=== PATIENT | male | born 1960 | race African-American/Black ===

== ENCOUNTER 2019-11-24 00:01 | Inpatient (IN) | payer OTHER ==
[~2019-11-24] VITALS: Ht 172.7 cm; Wt 101.6 kg
[2019-11-24] VITALS (37 sets, daily range): BP systolic 83–174; BP diastolic 47–84
--- NOTE | 2019-11-24 00:15 | NUR ---
ED Nurse Note: Patient brought in by ambulance from [facility] d/t SOB and cough for 1 day. Patient aao x 4 and is a left leg amputee. Patient placed on monitor worker. IV established and blood collected and sent to lab.
[2019-11-24] MEDS ORDERED: Acetaminophen 500mg (ES) tab ORAL ONE (00:45)
[2019-11-24] MEDS ORDERED: Cefepime HCl 1 GM in NS 55 ML IV ONE (00:45)
--- NOTE | 2019-11-24 00:56 | Emergency Room Report ---
History of Present Illness General Chief Complaint: Upper Respiratory Illness Source: Patient, Medical Record Present Illness HPI This is a 59-year-old male with a history of insulin-dependent diabetes. He resides in a retirement because he had a recent left BKA. He presents with chief complaint of fever and cough. Onset 6 days ago. He said he started coughing then. Productive of phlegm. Started having fever last couple days. No nausea no vomiting. Worse with inspiration. Worse with lying flat. Chest x -ray was done and showed pneumonia. Was sent here for evaluation. Patient denies any pain. Has any chest pain. No diaphoresis. Allergies: Coded Allergies: No Known Allergies (Unverified , 11/24/19) Patient History Past Medical History: see triage record, old chart reviewed, DM, HTN Past Surgical History: other - Left BKA Pertinent Family History: none Social History: Denies: smoking Immunizations: other Reviewed Nursing Documentation: PMH: Agreed; PSxH: Agreed Nursing Documentation-PMH Hx Diabetes: Yes - Type 2 Review of Systems Constitutional: Reports: chills, fever Eye: Denies: eye pain, blurred vision ENT: Denies: ear pain, nose congestion, throat swelling Respiratory: Reports: cough, shortness of breath, sputum Cardiovascular: Denies: chest pain, palpitations Gastrointestinal: Denies: abdominal pain, diarrhea, nausea, vomiting Musculoskeletal: Denies: back pain, joint pain Skin: Denies: rash Neurological: Denies: headache, numbness Endocrine: Denies: increased thirst, increased urine Hematologic/Lymphatic: Denies: easy bruising All Other Systems: negative except mentioned in HPI Physical Exam Vital Signs Date Time Temp Pulse Resp B/P (MAP) Pulse Ox O2 Delivery O2 Flow Rate FiO2 11/24/19 00:03 101.5 108 18 168/87 (114) 94 Nasal Cannula 4.0 Vitals with fever and hypertension. Sp02 EP Interpretation: reviewed, abnormal General Appearance: well appearing, no apparent distress, alert, mild distress Head: normocephalic, atraumatic Eyes: bilateral eye PERRL, bilateral eye EOMI ENT: hearing grossly normal, normal pharynx Neck: full range of motion, supple, no meningismus Respiratory: chest non-tender, crackles, rhonchi Cardiovascular #1: regular rate, rhythm, no murmur Gastrointestinal: normal bowel sounds, non tender, no mass, no organomegaly, no bruit, non-distended Musculoskeletal: back normal, normal range of motion, other - Left BKA Psychiatric: mood/affect normal Procedures Critical Care Time Critical Care Time Critical care is mandated in this patient who presented with sepsis from pneumonia. Patient require my urgent intervention to attenuate the risks of respiratory and metabolic collapse which may lead to cardiovascular collapse and . Critical care time is 35 minutes excluding any reportable procedure. Critical care time included evaluation, multiple reevaluation, looking at old charts, interpreting laboratory and diagnostic data, discussing case with patient and family and consultants, and charting. Medical Decision Making Diagnostic Impression: Primary Impression: Sepsis Qualified Codes: A41.9 - Sepsis, unspecified organism; R65.20 - Severe sepsis without septic shock; J96.01 - Acute respiratory failure with hypoxia Additional Impressions: HCAP (healthcare-associated pneumonia) ARF (acute renal failure) Qualified Codes: N17.9 - Acute kidney failure, unspecified Anemia Qualified Codes: D64.9 - Anemia, unspecified ACS (acute coronary syndrome) ER Course Patient presents with sepsis secondary to healthcare associated pneumonia. He has bilateral lobar infiltrate. Wide spectrum antibiotics given. Patient felt better after IV fluid and breathing treatment. His elevated troponin probably secondary to demand ischemia. Patient primary care doctor is Dr. Ramos. Will admit this patient under the service of Dr. Ceaj and Dr. Milton. EKG Diagnostic Results Rate: normal Rhythm: NSR ST Segments: no acute changes Rhythm Strip Diag. Results EP Interpretation: yes Rate: 100 Rhythm: NSR, no PVC's, no ectopy Chest X-Ray Diagnostic Results Chest X-Ray Diagnostic Results : # of Views/Limited/Complete: 1 View Indication: Shortness of Breath Interpretation: no effusion, no pneumothorax, other - b/l infiltrates Impression: Other - b/l infiltrates Electronically Signed by: Kyle Allen MD Last Vital Signs Date Time Temp Pulse Resp B/P (MAP) Pulse Ox O2 Delivery O2 Flow Rate FiO2 11/24/19 00:03 101.5 108 18 168/87 (114) 94 Nasal Cannula 4.0 Status: improved Disposition: ADMITTED INPATIENT Condition: Serious Referrals: NON PHYSICIAN (PCP) Kyle Allen MD Nov 24, 2019 00:56
[2019-11-24 01:11] LABS: HEMATOCRIT 31.4 % (42.0-52.0); HEMOGLOBIN 10.5 G/DL (14.2-18.0); MEAN CORPUSCULAR VOLUME 86 FL (80-99); PLATELET COUNT 370 K/UL (150-450); RED BLOOD COUNT 3.66 M/UL (4.70-6.10); RED CELL DISTRIBUTION WIDTH 14.7 % (11.6-14.8); WHITE BLOOD COUNT 12.2 K/UL (4.8-10.8)
[2019-11-24 01:25] LABS: ANION GAP 12 mmol/L (5-15); BLOOD UREA NITROGEN 68 mg/dL (7-18); CALCIUM 9.8 MG/DL (8.5-10.1); CARBON DIOXIDE 24 MMOL/L (21-32); CHLORIDE 105 MMOL/L (98-107); CREATININE 2.4 MG/DL (0.55-1.30); POTASSIUM 3.7 MMOL/L (3.5-5.1); SODIUM 141 MMOL/L (136-145)
--- NOTE | 2019-11-24 01:31 | NUR ---
ED Nurse Note: Urine collected and sent to lab
[2019-11-24 01:33] LABS: INR 1.1 (0.9-1.1)
[2019-11-24 01:38] LABS: ALANINE AMINOTRANSFERASE 22 U/L (12-78); ALBUMIN 2.8 G/DL (3.4-5.0); ALBUMIN/GLOBULIN RATIO 0.5 (1.0-2.7); ALKALINE PHOSPHATASE 112 U/L (46-116); ASPARTATE AMINO TRANSFERASE 20 U/L (15-37); BILIRUBIN,TOTAL 0.8 MG/DL (0.2-1.0); CKMB 0.8 NG/ML (0.0-3.6); CREATINE KINASE 92 U/L (26-308)
--- NOTE | 2019-11-24 01:41 | NUR ---
ED Nurse Note: ERMD made aware of patient O2 sat at 85-87% on 4L NC, per ERMD increase 5L NC and okay to continue monitor if O2 close to 90%. Oxygen increased to 5L, O2 sat at 88%
[2019-11-24 01:42] LABS: APPEARANCE,URINE CLEAR; BILIRUBIN, URINE NEGATIVE (NEGATIVE); COLOR,URINE PALE YELLOW; GLUCOSE, URINE (UA) NEGATIVE (NEGATIVE); KETONES,URINE NEGATIVE (NEGATIVE); LEUKOCYTE ESTERASE ,URINE NEGATIVE (NEGATIVE); NITRITE,URINE NEGATIVE (NEGATIVE); PH,URINE 5 (4.5-8.0); PROTEIN,URINE 3+ (NEGATIVE); UROBILINOGEN,URINE NORMAL MG/DL (0.0-1.0)
--- NOTE | 2019-11-24 01:45 | NUR ---
ED Nurse Note: Reassessed O2 sat currently at 93%
[2019-11-24] MEDS ORDERED: Aspirin Baby 81mg ORAL ONE (02:15)
--- NOTE | 2019-11-24 03:10 | Emergency Room Report ---
Sepsis Event Note Evaluation Current Stage of Sepsis: Sepsis Possible Source: Pulmonary Focused Exam Allergies: Coded Allergies: No Known Allergies (Unverified , 11/24/19) Date Exam Occurred: Nov 24, 2019 Time Exam Occurred: 03:10 Laboratory Studies Laboratory Tests Test 11/24/19 00:50 11/24/19 01:31 White Blood Count 12.2 K/UL (4.8-10.8) H Red Blood Count 3.66 M/UL (4.70-6.10) L Hemoglobin 10.5 G/DL (14.2-18.0) L Hematocrit 31.4 % (42.0-52.0) L Mean Corpuscular Volume 86 FL (80-99) Mean Corpuscular Hemoglobin 28.7 PG (27.0-31.0) Mean Corpuscular Hemoglobin Concent 33.5 G/DL (32.0-36.0) Red Cell Distribution Width 14.7 % (11.6-14.8) Platelet Count 370 K/UL (150-450) Mean Platelet Volume 5.3 FL (6.5-10.1) L Neutrophils (%) (Auto) % (45.0-75.0) Lymphocytes (%) (Auto) % (20.0-45.0) Monocytes (%) (Auto) % (1.0-10.0) Eosinophils (%) (Auto) % (0.0-3.0) Basophils (%) (Auto) % (0.0-2.0) Prothrombin Time 11.2 SEC (9.30-11.50) Prothromb Time International Ratio 1.1 (0.9-1.1) Activated Partial Thromboplast Time 33 SEC (23-33) Sodium Level 141 MMOL/L (136-145) Potassium Level 3.7 MMOL/L (3.5-5.1) Chloride Level 105 MMOL/L (98-107) Carbon Dioxide Level 24 MMOL/L (21-32) Anion Gap 12 mmol/L (5-15) Blood Urea Nitrogen 68 mg/dL (7-18) H Creatinine 2.4 MG/DL (0.55-1.30) H Estimat Glomerular Filtration Rate 33.8 mL/min (>60) Glucose Level 175 MG/DL (74-106) H Lactic Acid Level 1.90 mmol/L (0.4-2.0) Calcium Level 9.8 MG/DL (8.5-10.1) Total Bilirubin 0.8 MG/DL (0.2-1.0) Aspartate Amino Transf (AST/SGOT) 20 U/L (15-37) Alanine Aminotransferase (ALT/SGPT) 22 U/L (12-78) Alkaline Phosphatase 112 U/L (46-116) Total Creatine Kinase 92 U/L (26-308) Creatine Kinase MB 0.8 NG/ML (0.0-3.6) Creatine Kinase MB Relative Index 0.8 Troponin I 0.270 ng/mL (0.000-0.056) Total Protein 8.2 G/DL (6.4-8.2) Albumin 2.8 G/DL (3.4-5.0) L Globulin 5.4 g/dL Albumin/Globulin Ratio 0.5 (1.0-2.7) L Urine Color Pale yellow Urine Appearance Clear Urine pH 5 (4.5-8.0) Urine Specific Lottie 1.015 (1.005-1.035) Urine Protein 3+ (NEGATIVE) H Urine Glucose (UA) Negative (NEGATIVE) Urine Ketones Negative (NEGATIVE) Urine Blood 1+ (NEGATIVE) H Urine Nitrite Negative (NEGATIVE) Urine Bilirubin Negative (NEGATIVE) Urine Urobilinogen Normal MG/DL (0.0-1.0) Urine Leukocyte Esterase Negative (NEGATIVE) Urine RBC 0-2 /HPF (0 - 0) H Urine WBC 0 /HPF (0 - 0) Urine Squamous Epithelial Cells None /LPF (NONE/OCC) Urine Bacteria None /HPF (NONE) Vital Signs Last 24 Hour Vital Signs Date Time Temp Pulse Resp B/P (MAP) Pulse Ox O2 Delivery O2 Flow Rate FiO2 11/24/19 02:15 99.3 91 28 138/62 95 Nasal Cannula 4.0 11/24/19 01:34 101.4 11/24/19 00:15 101.5 98 28 147/68 87 Nasal Cannula 4.0 11/24/19 00:15 98 28 Nasal Cannula 4.0 11/24/19 00:03 101.5 108 18 168/87 (114) 94 Nasal Cannula 4.0 Respiratory Exam: Crackles Cardiovascular Exam: RRR Capillary Refill: Less Than 2 Seconds Peripheral Pulse: Strong Pulse Location: Radial Skin Exam: Normal Turgor Kyle Allen MD Nov 24, 2019 03:10
--- NOTE | 2019-11-24 05:28 | NUR ---
ED Nurse Note: Patient placed on [place] bed for boarding, swabs collected, belongings list completed.
--- NOTE | 2019-11-24 07:21 | NUR ---
HAND-OFF: Report given to YUKI Nelson.
--- NOTE | 2019-11-24 07:25 | NUR ---
ED Nurse Note: Pt vss, pt resting in bed, pt was able to urinate in urinal bottle
--- NOTE | 2019-11-24 09:19 | NUR ---
ED Nurse Note: Pt began to desaturate, informed ermd. placed pt on 15 L with non rebreather. waiting for RT for BiPAP placement
[2019-11-24] MEDS ORDERED: Nitroglycerin Subl 0.4mg tab SL ONE (09:22)
[2019-11-24] MEDS ORDERED: Nitroglycerin Subl 0.4mg tab SL PRN (09:30)
--- NOTE | 2019-11-24 09:30 | NUR ---
Placed pt on Bipap 15/5-100% FiO2. Foam tapes applied to prevent skin breakdown.Pt is agonal, SOB, lethargic but able to follow commands. Pt is tolerating well the Bipap. Alarms are set and audible, ambu bag at bedside, Bipap is plugged into the red outlet. RN made aware. Will continue to monitor.
--- NOTE | 2019-11-24 09:37 | NUR ---
ED Nurse Note: RT at bedside. BiPAP placed. pt Spo2 stablized.
--- NOTE | 2019-11-24 10:04 | NUR ---
ED Nurse Note: Pt soiled pants, pt cleaned and provided new blankets, gown, linen. pt reports feeling more comfortable
--- NOTE | 2019-11-24 10:21 | NUR ---
Set up EtCO2 at bedside, alarms are set 35-45mmHg per Dr. Kirby's order.
--- NOTE | 2019-11-24 10:30 | Diagnostic Imaging Report ---
Indication: Shortness of breath Technique: One view of the chest Comparison: none Findings: Dense consolidation is seen bilaterally, diffuse but with an upper lobe predominance. The pleural spaces appear clear. The heart size is upper limits of normal. There are degenerative changes of the thoracic spine Impression: Bilateral dense consolidation, likely pneumonia. Pulmonary edema also possible. Correlate with clinical findings
--- NOTE | 2019-11-24 11:23 | NUR ---
ED Nurse Note: Pt assisted onto bed bloom
[2019-11-24] MEDS ORDERED: AMLODIPINE BESY10 MG ORAL (13:01)
[2019-11-24] MEDS ORDERED: HUMALOG100 UNIT/4 SUBQ (13:01)
[2019-11-24] MEDS ORDERED: DOCUSATE SODIU100 MG ORAL (13:01)
[2019-11-24] MEDS ORDERED: NORCO 5-325 TA1 EACH ORAL (13:01)
[2019-11-24] MEDS ORDERED: METOPROLOL SUC100 MG ORAL (13:01)
[2019-11-24] MEDS ORDERED: BISACODYL5 MG ORAL (13:01)
[2019-11-24] MEDS ORDERED: MUPIROCIN22 GM TOPIC (13:01)
[2019-11-24] MEDS ORDERED: PROMETHAZINE-D118 ML ORAL (13:01)
[2019-11-24] MEDS ORDERED: FLONASE ALLERG9.9 ML NS (13:01)
[2019-11-24] MEDS ORDERED: ALLOPURINOL100 M1 ORAL (13:01)
[2019-11-24] MEDS ORDERED: MOBIC7.5 MG ORAL (13:01)
[2019-11-24] MEDS ORDERED: PRO-STAT LIQUID30 ML ORAL (13:01)
[2019-11-24] MEDS ORDERED: FUROSEMIDE20 M1 ORAL (13:01)
[2019-11-24] MEDS ORDERED: MULTIVITAMINS1 EAC8 ORAL (13:01)
[2019-11-24] MEDS ORDERED: ATORVASTATIN CA40 MG ORAL (13:01)
[2019-11-24] MEDS ORDERED: LEVAQUIN500 MG ORAL (13:01)
[2019-11-24] MEDS ORDERED: DUONEB 0.5-3(2.53 ML HHN (13:01)
[2019-11-24] MEDS ORDERED: PROTONIX40 MG ORAL (13:03)
[2019-11-24] MEDS ORDERED: TYLENOL325 M1 PO (13:03)
[2019-11-24] MEDS ORDERED: VITAMIN C500 M1 ORAL (13:03)
[2019-11-24] MEDS ORDERED: Miralax 17gm pkt ORAL PRN (13:30)
[2019-11-24] MEDS ORDERED: Albuterol/Ipratropium 3ml neb HHN PRN (13:30)
[2019-11-24] MEDS ORDERED: Promethazine/Codeine 5ml UD ORAL PRN (13:30)
[2019-11-24] MEDS ORDERED: LORazepam Inj 2mg/ml 1ml IV PRN (13:30)
--- NOTE | 2019-11-24 13:30 | NUR ---
HAND-OFF: Report given to YUKI Victoria.
--- NOTE | 2019-11-24 14:03 | NUR ---
ED Nurse Note: PTT seen in bed awake, COntinues with bipap, sp02 06%.Will continue to monitor. Addendum: 11/24/19 at 1704 by [facility] ED Nurse Note: PT seen in bed awake, COntinues with bipap, sp02 96%.Will continue to monitor.
--- NOTE | 2019-11-24 14:05 | NUR ---
NURSE NOTES: Report received from YUKI Burns. patient will be placed in room 246-F
--- NOTE | 2019-11-24 14:05 | NUR ---
ED Nurse Note: Report given to YUKI Parr.
--- NOTE | 2019-11-24 14:20 | NUR ---
ED Nurse Note: PT sp02 started to drop to 60s. PT became unresponsive. ERMD called to the room. PT was intubated at 1418. Tube size 7.5 to right lip, vent setting of AC20, TV480, PEEP 110 fi02 100%. Sp02 90% Addendum: 11/25/19 at 0121 by [facility] ED Nurse Note: PT sp02 started to drop to 60s. PT became unresponsive. ERMD called to the room. PT was intubated at 1418. Tube size 7.5 to right lip, vent setting of AC20, TV480, PEEP 10 fi02 100%. Sp02 90%
--- NOTE | 2019-11-24 14:42 | NUR ---
ED Nurse Note: xray for intubation confirmation done at bedside
--- NOTE | 2019-11-24 14:46 | NUR ---
RESPIRATORY NOTE: Got a call to transfer pt to ICU. Came in the room with Lucio to remove Bipap. Pt was sitting on the side of the bed, awake, alert. Lucio took the vital monitor off and place on mobile monitor. I took pt off the Bipap and placed on non rebreather 15L 100%FiO2. Pt was awake, alert and moving up to the bed to get transfer out when I left the room. Lucio was at bedside. Got a call from YUKI Vazquez that pt was crashing down, need to be intubated. When back to Er immediately,Pt was intubated per Dr. Kirby at 1418 with ETT 7.5 @ 24cm lip line, secured by anchor fast. Vent setting order was 20-480-100%-peep 10, but pt desat to 79%, bagged pt with peep valve of 15, able to bring pt back to 92% saturation. Placed back on vent, desat again. Increased peep to [address] Kirby's order and given pt breathing Tx prn to help open the airway and increase the saturation. After the Tx, able to keep saturation at 92-93% on vent settings: AC 20-480ml- 100%FiO2- peep 15. Alarms are on, ambu bag at bedside, vent is plugged into the red outlet. YUKI Vazquez aware.Will continue to monitor.
--- NOTE | 2019-11-24 15:00 | NUR ---
ED Nurse Note: PT brought up to ICU room F accompanied by RT, 2 RN, and quality assurance/r&d lab technician via bed with monitor box on. IV line remain intact . Report given to YUKI Parr. Belonging list signed off.
[2019-11-24] MEDS ORDERED: Morphine Sulfate 4mg/ml Inj (IV USE ONLY) IVP PRN (15:15)
--- NOTE | 2019-11-24 15:17 | Pulmonolgy Critical Care Note ---
Critical Care - Asmt/Plan Problems: (1) Acute respiratory failure (2) Chronic systolic heart failure (3) Chronic kidney disease, stage 3 (4) History of left below knee amputation (5) prostetic heart valve (6) Diabetes mellitus (7) History of hypertension (8) History of gout (9) HCAP (healthcare-associated pneumonia) Respiratory: monitor respiratory rate, adjust FIO2, CXR Cardiac: continue to monitor HR/BP Renal: F/U I&O, keep IV fluid Infectious Disease: check cultures, continue antibiotics Gastrointestinal: continue feedings/current rate Endocrine: monitor blood sugar Hematologic: monitor H/H Neurologic: PRN Ativan, PRN Morphine Disposition: keep in ICU Notes Reviewed: privacy director, cardio Discussed with: nurses, consultants, counter casermaterials planning manager - Objective Last 24 Hour Vital Signs Date Time Temp Pulse Resp B/P (MAP) Pulse Ox O2 Delivery O2 Flow Rate FiO2 11/24/19 14:34 98.8 102 18 166/84 90 Mechanical Ventilator 15.0 100 11/24/19 12:53 97 28 94 100 11/24/19 12:32 98.8 93 28 143/80 100 Bi-pap 15.0 100 11/24/19 10:21 91 31 93 100 11/24/19 09:46 99.0 84 26 148/77 100 Bi-pap 15.0 100 11/24/19 09:35 100 11/24/19 09:30 96 34 Non-Rebreather 15.0 100 11/24/19 09:30 95 34 96 100 11/24/19 09:23 174/76 11/24/19 09:19 99.0 76 26 174/76 74 Non-Rebreather 15.0 11/24/19 07:26 99.3 89 23 155/74 94 Nasal Cannula 5.0 11/24/19 07:10 82 26 158/72 94 Nasal Cannula 5.0 11/24/19 05:10 Room Air 11/24/19 05:07 Room Air 11/24/19 04:46 Nasal Cannula 3.0 11/24/19 03:00 82 22 121/57 90 Nasal Cannula 5.0 11/24/19 02:15 99.3 91 28 138/62 95 Nasal Cannula 4.0 11/24/19 01:34 101.4 11/24/19 00:15 101.5 98 28 147/68 87 Nasal Cannula 4.0 11/24/19 00:15 98 28 Nasal Cannula 4.0 11/24/19 00:03 101.5 108 18 168/87 (114) 94 Nasal Cannula 4.0 Status: sedated, obtunded Condition: critical Neck: full ROM Heart: HR/BP stable Abdomen: non-tender Micro: Microbiology Date/Time Source Procedure Growth Status 11/24/19 00:50 Nasal Nares - Final Complete 11/24/19 00:50 Nasal Nares - Final Complete 11/24/19 05:17 Rectum Received Accucheck: 130 Critical Care - Subjective ROS Limited/Unobtainable: Yes Interval Events: pt was transferred from a nursing with CC of fever and Short of breath, Got intubated in ER because of bilateral infiltrate and respiratory failure. FI02: 100 Sputum Amount: None I&O: Intake and Output 11/23/19 11/24/19 19:00 07:00 Intake Total 3705 ml Balance 3705 ml Intake IV Total 3705 ml CXR: bilateral infiltrate ET-Tube: 7.0 ET Position: 24 Labs: Laboratory Tests Test 11/24/19 00:50 11/24/19 01:31 11/24/19 09:36 11/24/19 09:42 White Blood Count 12.2 K/UL (4.8-10.8) H Red Blood Count 3.66 M/UL (4.70-6.10) L Hemoglobin 10.5 G/DL (14.2-18.0) L Hematocrit 31.4 % (42.0-52.0) L Mean Corpuscular Volume 86 FL (80-99) Mean Corpuscular Hemoglobin 28.7 PG (27.0-31.0) Mean Corpuscular Hemoglobin Concent 33.5 G/DL (32.0-36.0) Red Cell Distribution Width 14.7 % (11.6-14.8) Platelet Count 370 K/UL (150-450) Mean Platelet Volume 5.3 FL (6.5-10.1) L Neutrophils (%) (Auto) % (45.0-75.0) Lymphocytes (%) (Auto) % (20.0-45.0) Monocytes (%) (Auto) % (1.0-10.0) Eosinophils (%) (Auto) % (0.0-3.0) Basophils (%) (Auto) % (0.0-2.0) Prothrombin Time 11.2 SEC (9.30-11.50) Prothromb Time International Ratio 1.1 (0.9-1.1) Activated Partial Thromboplast Time 33 SEC (23-33) Sodium Level 141 MMOL/L (136-145) Potassium Level 3.7 MMOL/L (3.5-5.1) Chloride Level 105 MMOL/L (98-107) Carbon Dioxide Level 24 MMOL/L (21-32) Anion Gap 12 mmol/L (5-15) Blood Urea Nitrogen 68 mg/dL (7-18) H Creatinine 2.4 MG/DL (0.55-1.30) H Estimat Glomerular Filtration Rate 33.8 mL/min (>60) Glucose Level 175 MG/DL (74-106) H Lactic Acid Level 1.90 mmol/L (0.4-2.0) Calcium Level 9.8 MG/DL (8.5-10.1) Total Bilirubin 0.8 MG/DL (0.2-1.0) Aspartate Amino Transf (AST/SGOT) 20 U/L (15-37) Alanine Aminotransferase (ALT/SGPT) 22 U/L (12-78) Alkaline Phosphatase 112 U/L (46-116) Total Creatine Kinase 92 U/L (26-308) Creatine Kinase MB 0.8 NG/ML (0.0-3.6) Creatine Kinase MB Relative Index 0.8 Troponin I 0.270 ng/mL (0.000-0.056) 0.320 ng/mL (0.000-0.056) Total Protein 8.2 G/DL (6.4-8.2) Albumin 2.8 G/DL (3.4-5.0) L Globulin 5.4 g/dL Albumin/Globulin Ratio 0.5 (1.0-2.7) L Urine Color Pale yellow Urine Appearance Clear Urine pH 5 (4.5-8.0) Urine Specific Tate 1.015 (1.005-1.035) Urine Protein 3+ (NEGATIVE) H Urine Glucose (UA) Negative (NEGATIVE) Urine Ketones Negative (NEGATIVE) Urine Blood 1+ (NEGATIVE) H Urine Nitrite Negative (NEGATIVE) Urine Bilirubin Negative (NEGATIVE) Urine Urobilinogen Normal MG/DL (0.0-1.0) Urine Leukocyte Esterase Negative (NEGATIVE) Urine RBC 0-2 /HPF (0 - 0) H Urine WBC 0 /HPF (0 - 0) Urine Squamous Epithelial Cells None /LPF (NONE/OCC) Urine Bacteria None /HPF (NONE) Arterial Blood pH 7.261 (7.350-7.450) Arterial Blood Partial Pressure CO2 34.0 mmHg (35.0-45.0) L Arterial Blood Partial Pressure O2 101.1 mmHg (75.0-100.0) H Arterial Blood HCO3 14.9 mmol/L (22.0-26.0) *L Arterial Blood Oxygen Saturation 96.7 % (95-100) Arterial Blood Base Excess -11.1 (-2-2) *L Garry Test Positive Brandy Milton MD Nov 24, 2019 15:17
--- NOTE | 2019-11-24 15:29 | Diagnostic Imaging Report ---
Indication: Shortness of breath, status post intubation Technique: One view of the chest Comparison: 14 hours earlier Findings: . Endotracheal intubation, endotracheal tube tip projecting grossly 6 cm above the hoarce, in good position. Worsening of bilateral dense consolidation, particularly in the upper lobes and perihilar regions. The pleural spaces remain clear. The heart remains borderline enlarged Impression: Satisfactory endotracheal intubation. Worsening bilateral infiltrates. Findings discussed by phone with ICU charge nurse Judith at the time of interpretation
[2019-11-24] MEDS: LORazepam Inj 2mg/ml 1ml IV PRN (15:42)
--- NOTE | 2019-11-24 15:44 | Emergency Room Report ---
History of Present Illness General Chief Complaint: Upper Respiratory Illness Source: Medical Record Present Illness Allergies: Coded Allergies: No Known Allergies (Unverified , 11/24/19) Nursing Documentation-[facility] Past Medical History: No History, Except For Hx Cardiac Problems: No - Hyperlipidemia, anemia Hx Hypertension: Yes Hx Diabetes: Yes - Type 2 Hx Neurological Problems: No Physical Exam Vital Signs Date Time Temp Pulse Resp B/P (MAP) Pulse Ox O2 Delivery O2 Flow Rate FiO2 11/24/19 00:03 101.5 108 18 168/87 (114) 94 Nasal Cannula 4.0 11/24/19 09:30 100 Procedures Intubation Intubation : Consent: Emergent Time of Intubation: 14:30 Intubation Method: orotracheal Tube Size (cm): 7.5 Medications: Other - none Breath Sounds after Intubation: equal Intubation Complications: no complications Post Intubation Xray: Yes Attempts: One Complications: None Progress intubated without medications. Post procedure cxR with adequate ETT, bilateral infiltrates worsening. Accucheck 115 Medical Decision Making Diagnostic Impression: Primary Impression: Sepsis Qualified Codes: A41.9 - Sepsis, unspecified organism; R65.20 - Severe sepsis without septic shock; J96.01 - Acute respiratory failure with hypoxia Additional Impressions: HCAP (healthcare-associated pneumonia) ARF (acute renal failure) Qualified Codes: N17.9 - Acute kidney failure, unspecified Anemia Qualified Codes: D64.9 - Anemia, unspecified ACS (acute coronary syndrome) ER Course Patient had initially had moderate worseningi of breathing this morning and was started on BIPAP while awaiting bed upstairs. He subequenly improved. Several hours later had diminished respiratory effort and was intubated for respiratory distress. Patient change in condition was discussed with Dr. Ceja. Labs Test 11/24/19 00:50 11/24/19 01:31 11/24/19 09:36 11/24/19 09:42 White Blood Count 12.2 K/UL (4.8-10.8) Red Blood Count 3.66 M/UL (4.70-6.10) Hemoglobin 10.5 G/DL (14.2-18.0) Hematocrit 31.4 % (42.0-52.0) Mean Corpuscular Volume 86 FL (80-99) Mean Corpuscular Hemoglobin 28.7 PG (27.0-31.0) Mean Corpuscular Hemoglobin Concent 33.5 G/DL (32.0-36.0) Red Cell Distribution Width 14.7 % (11.6-14.8) Platelet Count 370 K/UL (150-450) Mean Platelet Volume 5.3 FL (6.5-10.1) Neutrophils (%) (Auto) % (45.0-75.0) Lymphocytes (%) (Auto) % (20.0-45.0) Monocytes (%) (Auto) % (1.0-10.0) Eosinophils (%) (Auto) % (0.0-3.0) Basophils (%) (Auto) % (0.0-2.0) Prothrombin Time 11.2 SEC (9.30-11.50) Prothromb Time International Ratio 1.1 (0.9-1.1) Activated Partial Thromboplast Time 33 SEC (23-33) Sodium Level 141 MMOL/L (136-145) Potassium Level 3.7 MMOL/L (3.5-5.1) Chloride Level 105 MMOL/L (98-107) Carbon Dioxide Level 24 MMOL/L (21-32) Anion Gap 12 mmol/L (5-15) Blood Urea Nitrogen 68 mg/dL (7-18) Creatinine 2.4 MG/DL (0.55-1.30) Estimat Glomerular Filtration Rate 33.8 mL/min (>60) Glucose Level 175 MG/DL (74-106) Lactic Acid Level 1.90 mmol/L (0.4-2.0) Calcium Level 9.8 MG/DL (8.5-10.1) Total Bilirubin 0.8 MG/DL (0.2-1.0) Aspartate Amino Transf (AST/SGOT) 20 U/L (15-37) Alanine Aminotransferase (ALT/SGPT) 22 U/L (12-78) Alkaline Phosphatase 112 U/L (46-116) Total Creatine Kinase 92 U/L (26-308) Creatine Kinase MB 0.8 NG/ML (0.0-3.6) Creatine Kinase MB Relative Index 0.8 Total Protein 8.2 G/DL (6.4-8.2) Albumin 2.8 G/DL (3.4-5.0) Globulin 5.4 g/dL Albumin/Globulin Ratio 0.5 (1.0-2.7) Urine Color Pale yellow Urine Appearance Clear Urine pH 5 (4.5-8.0) Urine Specific Patterson 1.015 (1.005-1.035) Urine Protein 3+ (NEGATIVE) Urine Glucose (UA) Negative (NEGATIVE) Urine Ketones Negative (NEGATIVE) Urine Blood 1+ (NEGATIVE) Urine Nitrite Negative (NEGATIVE) Urine Bilirubin Negative (NEGATIVE) Urine Urobilinogen Normal MG/DL (0.0-1.0) Urine Leukocyte Esterase Negative (NEGATIVE) Urine RBC 0-2 /HPF (0 - 0) Urine WBC 0 /HPF (0 - 0) Urine Squamous Epithelial Cells None /LPF (NONE/OCC) Urine Bacteria None /HPF (NONE) Arterial Blood pH 7.261 (7.350-7.450) Arterial Blood Partial Pressure CO2 34.0 mmHg (35.0-45.0) Arterial Blood Partial Pressure O2 101.1 mmHg (75.0-100.0) Arterial Blood HCO3 14.9 mmol/L (22.0-26.0) Arterial Blood Oxygen Saturation 96.7 % (95-100) Arterial Blood Base Excess -11.1 (-2-2) Garry Test Positive Troponin I 0.320 ng/mL (0.000-0.056) Last Vital Signs Date Time Temp Pulse Resp B/P (MAP) Pulse Ox O2 Delivery O2 Flow Rate FiO2 11/24/19 15:30 100.0 109 31 146/67 (93) 100 11/24/19 15:00 Mechanical Ventilator 15.0 100 Status: unchanged Disposition: ADMITTED INPATIENT Condition: Critical Referrals: NON PHYSICIAN (PCP) Lucio Kirby MD Nov 24, 2019 15:44
--- NOTE | 2019-11-24 15:49 | NUR ---
NURSE NOTES: 2 mg of Ativan administered for patient anxiety and breathing of 30-33 breas per minute. HR remains at 109 in sinus tachycardiawith BP of 152/74. he is drowsy but reacts to voice and tactile stimuli,
--- NOTE | 2019-11-24 16:24 | NUR ---
RESPIRATORY NOTE: Changed vent settings to AC [id number]-907%FiO2-no peep per Dr. Milton's order. Pt is tolerating well, no resp distress noted. ABG in 1 hour. YUKI raman.
[2019-11-24] MEDS: NovoLOG Insulin Flexpen SUBQ SCH ×2 (16:30→21:19)
--- NOTE | 2019-11-24 16:34 | NUR ---
NURSE NOTES: Fentanyl started at 10mcg/hr for patients comfort. increased to 50mcg/hr with HR of 98, and Bp of 125/63 with saturations of 100% and RR of 26. patient family is at the bedside and updated on plan,
--- NOTE | 2019-11-24 16:44 | NUR ---
NURSE NOTES: 2D-echo completed at the bedside. awaiting for results. patient tolerated procedure well with no distress episodes
[2019-11-24] MEDS ORDERED: Vancomycin 1.5gm/NS Premix q24h IVPB SCH (17:00)
[2019-11-24 17:48] LABS: APPEARANCE,URINE CLEAR; BILIRUBIN, URINE NEGATIVE (NEGATIVE); COLOR,URINE PALE YELLOW; GLUCOSE, URINE (UA) NEGATIVE (NEGATIVE); KETONES,URINE NEGATIVE (NEGATIVE); LEUKOCYTE ESTERASE ,URINE NEGATIVE (NEGATIVE); NITRITE,URINE NEGATIVE (NEGATIVE); PH,URINE 5 (4.5-8.0); PROTEIN,URINE 3+ (NEGATIVE); UROBILINOGEN,URINE NORMAL MG/DL (0.0-1.0)
[2019-11-24 18:13] LABS: CREATINE KINASE 119 U/L (26-308)
--- NOTE | 2019-11-24 18:49 | NUR ---
CASE MANAGEMENT: INITIAL REVIEW 59 YO M SHENG FROM [facility] CC: URI PMHx: DM. HTN. LEFT BKA SI:SEPSIS. HCAP. T 101.5 HR 108 RR 18 B/P 168/87 SATS 94% ON 4L/NC WBC 12.2 ABGs PH 7.261 PCO2 PO2 HCO3 14.9 BE -11.1 IS: CEFEPIME IV X1 LEVOFLOXACIN IV X1 NS BOLUS X1 TYLENOL PO X1 ASA PO X1 EKG Rate: normal Rhythm: NSR ST Segments: no acute changes CXR Impression: Bilateral dense consolidation, likely pneumonia. Pulmonary edema also possible. CXR Impression: Satisfactory endotracheal intubation. Worsening bilateral infiltrates. PATIENT ADMITTED TO ICU 11/24/2019 @ 1704 DCP: PATIENT TO BE DISCHARGED TO SNF ONCE MEDICALLY CLEARED. PLAN OF CARE: CXR VENOUS DUPLEX Addendum: 11/24/19 at 1907 by Britni Rodriguez CM INTERQUAL MET
--- NOTE | 2019-11-24 19:03 | NUR ---
RESPIRATORY NOTE: Received pt on AC 16, 600VT, 100%, no PEEP. Pt intubated w/ ETT 7.5 @ 24cm lipline, secured by anchorfast. MD Yoan had just ordered to add PEEP. Pt now on a PEEP +5. Pt sedated. B/S maria de jesus. clear, sxn scant amounts of thick/thin, bloody secretions. Hands are being restrained right now to prevent slef extubation. Vent plugged into red outlet, ambubag at bedside. Pt in no apparent distress at this time. Will continue to monitor pt.
--- NOTE | 2019-11-24 19:25 | NUR ---
HAND-OFF: Report given to YUKI Alonso. patient remains on fentanyl drip at 300mcg/hr at rate of 30m/hr. he is sedated with no distress notes and RR of 20 with saturations of 95-97%.
--- NOTE | 2019-11-24 19:30 | NUR ---
NURSE NOTES: Received pt response to pain stimuli, orally intubated on ac mode. sedated with Fentanyl drip at 300mcg/hr. ST on the monitor. Bp labile. Pt on IVF of 1/2NS at 125ml/hr infusing to RT FA and Fentanyl drip at 300mcg/hr to left AC. site atraumatic. Pt with left BKA., obese and 2-3+ edema Cruz to gravity with yellowish urine at least 30ml/hr.. Bilateral soft wrist restraint maintained for safety to avoid self extubation. Will continue to monitor.
[2019-11-24] MEDS: fentaNYL Citrate 2500mcg in NS 250ml IV SCH (19:54)
--- NOTE | 2019-11-24 20:00 | NUR ---
NURSE NOTES: Temp 100.4- cooling measures done.- will continue to monitor.
--- NOTE | 2019-11-24 20:21 | History & Physical ---
History and Physical History & Physicial Dictated for Int Med-Dr Ceja no. [id number] Sidney Galaviz MD Nov 24, 2019 20:21
--- NOTE | 2019-11-24 21:02 | Cardiology Progress Note ---
Assessment/Plan Assessment/Plan [id number] Objective Last 24 Hour Vital Signs Date Time Temp Pulse Resp B/P (MAP) Pulse Ox O2 Delivery O2 Flow Rate FiO2 11/24/19 19:54 19 Mechanical Ventilator 100 11/24/19 19:00 101 22 100 11/24/19 19:00 104 22 120/65 (83) 97 11/24/19 18:30 102 22 115/66 (82) 98 11/24/19 18:00 101 23 122/67 (85) 97 11/24/19 17:30 102 24 122/63 (82) 98 11/24/19 17:20 102 24 100 11/24/19 17:00 108 31 137/65 (89) 100 11/24/19 16:30 106 28 125/63 (83) 100 11/24/19 16:29 100.0 11/24/19 16:24 107 30 100 11/24/19 16:15 108 29 134/64 (87) 100 11/24/19 16:00 109 28 138/70 (92) 100 11/24/19 16:00 Mechanical Ventilator 11/24/19 16:00 99 11/24/19 15:58 32 Mechanical Ventilator 100 11/24/19 15:45 110 31 152/74 (100) 100 11/24/19 15:36 100.0 11/24/19 15:30 100.0 109 31 146/67 (93) 100 11/24/19 15:12 108 34 100 11/24/19 15:00 98.8 105 20 160/84 97 Mechanical Ventilator 15.0 100 11/24/19 14:46 104 27 93 Mechanical Ventilator 100 108 26 100 11/24/19 14:34 98.8 102 18 166/84 90 Mechanical Ventilator 15.0 100 11/24/19 14:20 99.5 73 0 162/84 65 Ambu-Bag 15.0 100 11/24/19 14:15 108 34 79 Non-Rebreather 15.0 100 11/24/19 14:05 Mechanical Ventilator 11/24/19 12:53 97 28 94 100 11/24/19 12:32 98.8 93 28 143/80 100 Bi-pap 15.0 100 11/24/19 11:30 98.9 79 22 162/73 91 Bi-pap 15.0 100 11/24/19 10:30 98.9 87 24 155/72 93 Bi-pap 15.0 100 11/24/19 10:21 91 31 93 100 11/24/19 09:46 99.0 84 26 148/77 100 Bi-pap 15.0 100 11/24/19 09:35 100 11/24/19 09:30 96 34 Non-Rebreather 15.0 100 11/24/19 09:30 95 34 96 100 11/24/19 09:23 174/76 11/24/19 09:19 99.0 76 26 174/76 74 Non-Rebreather 15.0 11/24/19 07:26 99.3 89 23 155/74 94 Nasal Cannula 5.0 11/24/19 07:10 82 26 158/72 94 Nasal Cannula 5.0 11/24/19 05:10 Room Air 11/24/19 05:07 Room Air 11/24/19 04:46 Nasal Cannula 3.0 11/24/19 03:00 82 22 121/57 90 Nasal Cannula 5.0 11/24/19 02:15 99.3 91 28 138/62 95 Nasal Cannula 4.0 11/24/19 01:34 101.4 11/24/19 00:15 101.5 98 28 147/68 87 Nasal Cannula 4.0 11/24/19 00:15 98 28 Nasal Cannula 4.0 11/24/19 00:03 101.5 108 18 168/87 (114) 94 Nasal Cannula 4.0 Intake and Output 11/23/19 11/24/19 18:59 06:59 Intake Total 3705 ml Balance 3705 ml Intake IV Total 3705 ml Laboratory Tests Test 11/24/19 00:50 11/24/19 01:31 11/24/19 09:36 11/24/19 09:42 White Blood Count 12.2 K/UL (4.8-10.8) H Red Blood Count 3.66 M/UL (4.70-6.10) L Hemoglobin 10.5 G/DL (14.2-18.0) L Hematocrit 31.4 % (42.0-52.0) L Mean Corpuscular Volume 86 FL (80-99) Mean Corpuscular Hemoglobin 28.7 PG (27.0-31.0) Mean Corpuscular Hemoglobin Concent 33.5 G/DL (32.0-36.0) Red Cell Distribution Width 14.7 % (11.6-14.8) Platelet Count 370 K/UL (150-450) Mean Platelet Volume 5.3 FL (6.5-10.1) L Neutrophils (%) (Auto) % (45.0-75.0) Lymphocytes (%) (Auto) % (20.0-45.0) Monocytes (%) (Auto) % (1.0-10.0) Eosinophils (%) (Auto) % (0.0-3.0) Basophils (%) (Auto) % (0.0-2.0) Prothrombin Time 11.2 SEC (9.30-11.50) Prothromb Time International Ratio 1.1 (0.9-1.1) Activated Partial Thromboplast Time 33 SEC (23-33) Sodium Level 141 MMOL/L (136-145) Potassium Level 3.7 MMOL/L (3.5-5.1) Chloride Level 105 MMOL/L (98-107) Carbon Dioxide Level 24 MMOL/L (21-32) Anion Gap 12 mmol/L (5-15) Blood Urea Nitrogen 68 mg/dL (7-18) H Creatinine 2.4 MG/DL (0.55-1.30) H Estimat Glomerular Filtration Rate 33.8 mL/min (>60) Glucose Level 175 MG/DL (74-106) H Lactic Acid Level 1.90 mmol/L (0.4-2.0) Calcium Level 9.8 MG/DL (8.5-10.1) Total Bilirubin 0.8 MG/DL (0.2-1.0) Aspartate Amino Transf (AST/SGOT) 20 U/L (15-37) Alanine Aminotransferase (ALT/SGPT) 22 U/L (12-78) Alkaline Phosphatase 112 U/L (46-116) Total Creatine Kinase 92 U/L (26-308) Creatine Kinase MB 0.8 NG/ML (0.0-3.6) Creatine Kinase MB Relative Index 0.8 Troponin I 0.270 ng/mL (0.000-0.056) 0.320 ng/mL (0.000-0.056) Total Protein 8.2 G/DL (6.4-8.2) Albumin 2.8 G/DL (3.4-5.0) L Globulin 5.4 g/dL Albumin/Globulin Ratio 0.5 (1.0-2.7) L Urine Color Pale yellow Urine Appearance Clear Urine pH 5 (4.5-8.0) Urine Specific [place] 1.015 (1.005-1.035) Urine Protein 3+ (NEGATIVE) H Urine Glucose (UA) Negative (NEGATIVE) Urine Ketones Negative (NEGATIVE) Urine Blood 1+ (NEGATIVE) H Urine Nitrite Negative (NEGATIVE) Urine Bilirubin Negative (NEGATIVE) Urine Urobilinogen Normal MG/DL (0.0-1.0) Urine Leukocyte Esterase Negative (NEGATIVE) Urine RBC 0-2 /HPF (0 - 0) H Urine WBC 0 /HPF (0 - 0) Urine Squamous Epithelial Cells None /LPF (NONE/OCC) Urine Bacteria None /HPF (NONE) Arterial Blood pH 7.261 (7.350-7.450) Arterial Blood Partial Pressure CO2 34.0 mmHg (35.0-45.0) L Arterial Blood Partial Pressure O2 101.1 mmHg (75.0-100.0) H Arterial Blood HCO3 14.9 mmol/L (22.0-26.0) *L Arterial Blood Oxygen Saturation 96.7 % (95-100) Arterial Blood Base Excess -11.1 (-2-2) *L Garry Test Positive Test 11/24/19 17:20 11/24/19 17:23 11/24/19 17:45 Urine Color Pale yellow Urine Appearance Clear Urine pH 5 (4.5-8.0) Urine Specific [place] 1.010 (1.005-1.035) Urine Protein 3+ (NEGATIVE) H Urine Glucose (UA) Negative (NEGATIVE) Urine Ketones Negative (NEGATIVE) Urine Blood 3+ (NEGATIVE) H Urine Nitrite Negative (NEGATIVE) Urine Bilirubin Negative (NEGATIVE) Urine Urobilinogen Normal MG/DL (0.0-1.0) Urine Leukocyte Esterase Negative (NEGATIVE) Urine RBC 2-4 /HPF (0 - 0) H Urine WBC 0-2 /HPF (0 - 0) Urine Squamous Epithelial Cells None /LPF (NONE/OCC) Urine Calcium Oxalate Crystals Few /LPF (NONE) Urine Amorphous Sediment Moderate /LPF (NONE) H Urine Bacteria Moderate /HPF (NONE) H Urine Eosinophils None seen (NONE SEEN) Urine Osmolality 394 mOsm/kg (429-449) L Urine Random Creatinine Pending Urine Random Microalbumin Pending Urine Random Sodium 48 mmol/L (20-110) Urine Microalbumin/Creatinine Ratio Pending Arterial Blood pH 7.351 (7.350-7.450) Arterial Blood Partial Pressure CO2 33.2 mmHg (35.0-45.0) L Arterial Blood Partial Pressure O2 55.0 mmHg (75.0-100.0) L Arterial Blood HCO3 18.0 mmol/L (22.0-26.0) L Arterial Blood Oxygen Saturation 86.7 % (95-100) *L Arterial Blood Base Excess -6.8 (-2-2) L Garry Test Positive Uric Acid 5.5 MG/DL (2.6-7.2) Total Creatine Kinase 119 U/L (26-308) Troponin I 0.298 ng/mL (0.000-0.056) Microbiology Date/Time Source Procedure Growth Status 11/24/19 00:50 Nasal Nares - Final Complete 11/24/19 00:50 Nasal Nares - Final Complete 11/24/19 05:17 Rectum Received Antonio Byrd MD Nov 24, 2019 21:02
[2019-11-24] MEDS: Cefepime HCl 2 GM in D5W 110 ML IV SCH (21:15)
[2019-11-24] MEDS: Heparin 5000 units/ml inj SUBQ SCH (21:18)
--- NOTE | 2019-11-24 22:00 | NUR ---
NURSE NOTES: dr Lopez was notified by RN Allen raymond that Pts BP were low on the 80s. Awaiting for md to call back
--- NOTE | 2019-11-24 22:00 | NUR ---
NURSE NOTES: Fentanyl drip decrease to 100mcg/min to obtain RASS score -2
--- NOTE | 2019-11-24 22:14 | NUR ---
NURSE NOTES: Inserted NGT and ordered KUB but accidentally was placed under Dr Mitchell. propellant charge zone assemblerYUKI Haywood was notified.
[2019-11-24] MEDS ORDERED: Vancomycin 1 GM in D5W 275 ML IV SCH (23:00)
--- NOTE | 2019-11-24 23:00 | History and Physical Report ---
DATE OF ADMISSION: 11/24/2019 CHIEF COMPLAINT: The patient is a 59-year-old male, who presents with a chief complaint of shortness of breath and cough. HISTORY OF PRESENT ILLNESS: The patient is a resident of [facility]. The patient underwent a left [id number] amputation recently. The patient was transferred to [facility] for acute rehabilitation. The patient states he began feeling feverish six days ago. The patient has subjective fever and chills. The patient also started having a cough. Cough is productive of a yellowish phlegm. The patient apparently had a chest x-ray performed at [facility], which demonstrated pneumonia. The patient was sent to [facility] for evaluation. The patient is admitted with cough and fever with new pneumonia. REVIEW OF SYSTEMS: CONSTITUTIONAL: The patient denies weight loss or weight gain. The patient denies fevers or chills. HEENT: The patient denies ear or throat pain. The patient denies headache. CARDIOVASCULAR: The patient denies palpitations or chest pain. CHEST: The patient complains of cough productive of a yellowish sputum as above. The patient denies wheezes. ABDOMEN: The patient denies nausea, vomiting, diarrhea, or constipation. GENITOURINARY: The patient denies dysuria or increased frequency of urination. NEUROMUSCULAR: The patient denies seizures or generalized weakness. PAST MEDICAL HISTORY: Significant for: 1. Type 2 diabetes. 2. Hypertension. 3. Peripheral vascular disease. PAST SURGICAL HISTORY: Significant for left aaeku-gub-jotl amputation. CURRENT MEDICATIONS: 1. Tylenol 650 mg p.o. q.4 h. p.r.n. 2. Allopurinol 100 mg p.o. daily. 3. Amlodipine 10 mg p.o. daily. 4. Vitamin C 500 mg p.o. daily. 5. Atorvastatin 80 mg p.o. nightly. 6. Flonase one spray each nostril twice daily. 7. Lasix 20 mg p.o. daily. 8. [place] 5/325, two tablets p.o. q.6 h. p.r.n. 9. Lispro sliding scale. 10. DuoNeb nebulized q.6 h. p.r.n. 11. Meloxicam 7.5 mg p.o. daily. 12. Metoprolol 100 mg p.o. daily. 13. Pantoprazole 40 mg p.o. daily. ALLERGIES: No known drug allergies. SOCIAL HISTORY: The patient is . The patient denies tobacco or alcohol use. PHYSICAL EXAMINATION: VITAL SIGNS: Temperature 99.0, respirations 26, pulse 84, and blood pressure 148/77. GENERAL: The patient is a well-developed and well-nourished male, in moderate respiratory distress. HEENT: Eyes, pupils are equal and responsive to light and accommodation. Extraocular movements are intact. NECK: Supple without lymphadenopathy. CHEST: Mechanical breath sounds, otherwise without wheezes or rales. CARDIOVASCULAR: Regular rate. S1 and S2 normal without murmurs, rubs, or gallops. ABDOMEN: Soft, nontender, and nondistended. Positive bowel sounds. No evidence of hepatosplenomegaly. Currently, no rebound or guarding noted. EXTREMITIES: Negative for clubbing, cyanosis, or edema. RECTAL/GENITAL: Refused. NEUROLOGIC: Cranial nerves II through XII are grossly intact without focal deficits. DIAGNOSTIC DATA: A chest x-ray was reported as bilateral dense consolidations consistent with pneumonia. LABORATORY STUDIES: WBC 12.2, hemoglobin 10.5, hematocrit 31.4, and platelets 370,000. Sodium 141, potassium 3.7, chloride 105, CO2 24, BUN 68, creatinine 2.4, and glucose 175. Arterial blood gas revealed pH 7.261, pCO2 34, pO2 101.1, bicarbonate 14.9, oxygen saturation 96.7, and base excess -11.1. ASSESSMENT: This is a 59-year-old male. 1. Respiratory failure. 2. Pneumonia. 3. Probable sepsis. 4. Diabetes type 2. 5. Hypertension. 6. Hypercholesterolemia. TREATMENT: 1. Respiratory failure/pneumonia. The patient is currently in intubated in the intensive care unit. A Pulmonary consultation has been obtained with Dr. Brandy Milton. The patient has been started empirically on vancomycin and cefepime to cover healthcare-associated pneumonia. We will follow recommendations of Pulmonary. Sputum cultures are pending at this time. 2. Probable sepsis. Blood cultures are pending. As above, the patient has been placed empirically on vancomycin and cefepime. 3. Diabetes type 2. A NovoLog sliding scale has been instituted. 4. Hypertension. The patient is currently hypotensive. Hold antihypertensive medication. 5. Hypercholesterolemia. Continue atorvastatin as above. Sidney Galaviz M.D. DR: ASMSON JOB#: [id number] CC:
--- NOTE | 2019-11-24 23:15 | Consultation ---
DATE OF CONSULTATION: 11/24/2019 CARDIOLOGY CONSULTATION CONSULTING PHYSICIAN: Antonio Byrd M.D. REFERRING PHYSICIAN: Brandy Milton M.D. REASON FOR REFERRAL: Congestive heart failure. HISTORY OF PRESENT ILLNESS: This is a gentleman who is middle aged, unfortunately has multiple medical problems admitted to the hospital because of respiratory failure. He is on mechanical ventilator. He is unable to provide any meaningful history whatsoever. Emergency room physician's information was reviewed. The patient initially had presented to the emergency room with worsening shortness of breath. This morning, he was started on BiPAP. While awaiting to go upstairs, he subsequently improved. Several hours later, he had diminished respiratory effort and was intubated with respiratory distress and the patient was admitted to the hospital for further evaluation. This consultation was subsequently requested. The patient is not able to provide any meaningful history. PAST MEDICAL HISTORY: History of diabetes mellitus, cellulitis, history of allergic rhinitis, coronary artery disease stent and angioplasty, history of prosthetic aortic valve although I do not see a surgical scar, history of amputation, esophagitis, muscle wasting, kidney failure, peripheral vascular disease, anemia, chronic systolic congestive heart failure, hyperlipidemia, hypertension, chronic disease. ALLERGIES: The patient is not allergic to any medications. SOCIAL HISTORY: Resident of convalescent facility. PHYSICAL EXAMINATION: GENERAL: Shows to be a middle-aged male, on a mechanical ventilator, not communicating, not responsive at this time. NECK: Supple. LUNGS: Appear to be relatively clear to auscultation and percussion anteriorly. CARDIAC: Regular rate and rhythm. No heaves or thrills. ABDOMEN: Soft, nontender. Positive bowel sounds. EXTREMITIES: Amputation of the left side on the right. LABORATORY AND DIAGNOSTIC DATA: White count 12.3, hemoglobin 10.5, and platelet count of 373. Blood gases, pH of 7.35, pCO2 32, pO2 55, and bicarbonate of 87%. Sodium 141, potassium 3.7, chloride 105, bicarb of 24, BUN of 68, creatinine 2.4, glucose of 175. Liver function tests are normal. Troponin 0.270, 0.320, 0.298. Lactic acid 1.9. CK of 119. Imaging, a chest x-ray shows endotracheal tube in place, worsening bilateral dense consolidation. The patient's electrocardiogram shows normal sinus rhythm, delay in R-wave progression suggestive of anterior myocardial infarction. No significant ST or T-wave abnormalities. ASSESSMENT AND PLAN: 1. Respiratory failure, probably pneumonia. 2. History of chronic congestive heart failure although I suspect most problems are related pulmonary mercer. 3. History of aortic valve replacement per records, no surgical scar on the chest wall. 4. History of coronary artery disease, unknown details. 5. Abnormal cardiac enzymes likely secondary to demand. The patient was seen in cardiac consultation. I suspect most of the problems are pulmonary in origin. Echocardiogram will be ordered for evaluation of LV systolic function. Cardiac enzymes will be checked. The patient should be continued on course of antibiotics, ventilator support and management as per Dr. Milton., The patient's blood pressure at this time appears to Heart rates also borderline normal. Antibiotic apparently been administered. It is of note that no records of significant degree were found at [facility] on this patient. Antonio Byrd M.D. DR: Krystin JOB#: [id number] CC:
[2019-11-25] VITALS (37 sets, daily range): BP systolic 89–145; BP diastolic 48–76
--- NOTE | 2019-11-25 | NUR ---
NURSE NOTES: Fentanyl drip decrease to 50 MCG/ min to obtain RASS score -2
--- NOTE | 2019-11-25 00:10 | Diagnostic Imaging Report ---
Indication: NG tube placement Comparison: None Single view of the abdomen obtained Findings: NG tube proximal port and tip are both in the stomach. Both are in the upper part of the stomach. IMPRESSION: NG tube in the proximal stomach
--- NOTE | 2019-11-25 01:12 | NUR ---
NURSE NOTES: ER was here to place central line
--- NOTE | 2019-11-25 01:57 | NUR ---
NURSE NOTES: ER MD Allen called confirmed Placement of central line with Chest xray. OK to use line now
--- NOTE | 2019-11-25 01:58 | NUR ---
NURSE NOTES: Bp 92/53, started levophed drip at 10mcg/min
--- NOTE | 2019-11-25 02:00 | NUR ---
NURSE NOTES: Pt not restless at this time and no sign of any agitation.. Turned off Fentanyl drip.
--- NOTE | 2019-11-25 02:13 | NUR ---
NURSE NOTES:Pt desat on the 80s attempted to rotate 02 sat placement but 02 sat still on the 80s, blood gas ordered and will notify dr Milton
--- NOTE | 2019-11-25 02:17 | Emergency Room Report ---
History of Present Illness General Chief Complaint: Upper Respiratory Illness Source: Medical Record Present Illness HPI This patient was admitted to the hospital for pneumonia. Condition worsened to the point that he had respiratory failure and was intubated. Now he was hypotensive and I was asked to place a central line. A central line was placed under sterile condition to the right IJ. No complication. Chest x-ray showed no pneumothorax. Chest x-ray looks like he is in ARDS. Allergies: Coded Allergies: No Known Allergies (Unverified , 11/24/19) Nursing Documentation-[facility] Past Medical History: No History, Except For Hx Cardiac Problems: No Hx Hypertension: Yes Hx Diabetes: Yes Hx Cancer: No Hx Gastrointestinal Problems: No Hx Neurological Problems: No Physical Exam Vital Signs Date Time Temp Pulse Resp B/P (MAP) Pulse Ox O2 Delivery O2 Flow Rate FiO2 11/24/19 00:03 101.5 108 18 168/87 (114) 94 Nasal Cannula 4.0 11/24/19 09:30 100 Procedures Central Line Central Line : Consent: Emergent Central Line Lumen: triple Maximal Sterile Barrier Tech: yes cap, yes mask, yes sterile gown, yes sterile gloves, yes large sterile sheet, yes hand hygiene, yes chlorhexidine prep Central Line Postion: internal jugular (R) Complications: none Central Line Post Position: sutured Attempts: One Patient Tolerated: Well Complications: None Medical Decision Making Diagnostic Impression: Primary Impression: Sepsis Qualified Codes: A41.9 - Sepsis, unspecified organism; R65.20 - Severe sepsis without septic shock; J96.01 - Acute respiratory failure with hypoxia Additional Impressions: HCAP (healthcare-associated pneumonia) ARF (acute renal failure) Qualified Codes: N17.9 - Acute kidney failure, unspecified Anemia Qualified Codes: D64.9 - Anemia, unspecified ACS (acute coronary syndrome) Septic shock ARDS (adult respiratory distress syndrome) ER Course Patient condition worsened to respiratory failure requiring intubation and now in ARDS. Central line placed for levo fed. Prognosis very poor. Chest X-Ray Diagnostic Results Chest X-Ray Diagnostic Results : Chest X-Ray Ordered: Yes # of Views/Limited/Complete: 1 View Indication: Other - Status post central line placement EP Interpretation: Yes Interpretation: no pneumothorax, other - Cardiomegaly. Multi lobar infiltrates. ARDS. No pneumothorax. Impression: Other - s/p central placement. no ptx, ARDS Electronically Signed by: Kyle Allen MD Last Vital Signs Date Time Temp Pulse Resp B/P (MAP) Pulse Ox O2 Delivery O2 Flow Rate FiO2 11/25/19 01:28 86 19 100 11/25/19 01:17 83/52 11/25/19 00:00 100.0 11/24/19 23:00 95 11/24/19 20:00 100.4 11/24/19 19:54 Mechanical Ventilator Status: unchanged Disposition: ADMITTED INPATIENT Condition: Critical Referrals: NON PHYSICIAN (PCP) Kyle Allen MD Nov 25, 2019 02:17
--- NOTE | 2019-11-25 02:34 | NUR ---
NURSE NOTES: Dr Milton was notified by addictions recovery specialist Yobany Sosa with pts desat and blood gas result , low urine output 10ml/hr and max pressors, Bp still 90s. awaiting for md to call back.
--- NOTE | 2019-11-25 02:34 | NUR ---
NURSE NOTES: Called and left message for MD Milton. Patient continues to desat, ABG results left in message, patient is also maxed on pressors. Awaiting call back.
--- NOTE | 2019-11-25 04:08 | NUR ---
NURSE NOTES: Called and left message for MD Milton at this time. Patient continues to desaturate. Sats 79%. Awaiting call back.
--- NOTE | 2019-11-25 04:15 | NUR ---
NURSE NOTES: Called and spoke with MD Milton at this time. Informed him about patient change in condition. Ordered in increase patient Peep. Now peep 10. RT informed.
--- NOTE | 2019-11-25 04:15 | NUR ---
RESPIRATORY NOTE: PEEP changed to +10 per MD Yoan post ABG draw. Pt now on AC 16, 600VT, 100%, PEEP +10. Will continue to monitor pt.
[2019-11-25] MEDS ORDERED: Levophed 4mg/4mL Inj IV ONE (04:21)
--- NOTE | 2019-11-25 05:00 | NUR ---
NURSE NOTES: Complete bath with partial bed changed done.
[2019-11-25 05:38] LABS: HEMATOCRIT 27.1 % (42.0-52.0); HEMOGLOBIN 8.9 G/DL (14.2-18.0); MEAN CORPUSCULAR VOLUME 87 FL (80-99); PLATELET COUNT 387 K/UL (150-450); RED CELL DISTRIBUTION WIDTH 15.8 % (11.6-14.8); WHITE BLOOD COUNT 15.8 K/UL (4.8-10.8)
[2019-11-25 05:48] LABS: ALBUMIN 2.2 G/DL (3.4-5.0); ANION GAP 15 mmol/L (5-15); BLOOD UREA NITROGEN 72 mg/dL (7-18); CALCIUM 8.7 MG/DL (8.5-10.1); CARBON DIOXIDE 18 MMOL/L (21-32); CHLORIDE 107 MMOL/L (98-107); CREATININE 3.3 MG/DL (0.55-1.30); POTASSIUM 4.6 MMOL/L (3.5-5.1); SODIUM 140 MMOL/L (136-145)
[2019-11-25] MEDS: NovoLOG Insulin Flexpen SUBQ SCH ×4 (06:22→21:00)
[2019-11-25 06:32] LABS: PHOSPHORUS 5.6 MG/DL (2.5-4.9)
--- NOTE | 2019-11-25 06:41 | NUR ---
RESPIRATORY NOTE: Received pt intubated with ETT 7.5@24cm lip line, secured by anchor fast. Pt is awake, alert, able to follow commands, and on the settings: AC [id number]%- peep 10. Charlie clear breath sound heard upon auscultation, attempted to collect sputum for sputum culture but only suctioned scant amount of thin/thick small clots with red specks brown secretions. Will try again later. No weaning today due to high FiO2 and peep. Will titrate the pt's FiO2 and peep first before start weaning. No resp distress noted at this time. Alarms are set and audible, vent is plugged into the red outlet, ambu bag is at bedside. Will continue to monitor.
[2019-11-25 06:46] LABS: ALANINE AMINOTRANSFERASE 30 U/L (12-78); ALBUMIN 2.2 G/DL (3.4-5.0); ALBUMIN/GLOBULIN RATIO 0.5 (1.0-2.7); ALKALINE PHOSPHATASE 83 U/L (46-116); ANION GAP 15 mmol/L (5-15); ASPARTATE AMINO TRANSFERASE 77 U/L (15-37); BILIRUBIN,TOTAL 1.1 MG/DL (0.2-1.0); BLOOD UREA NITROGEN 72 mg/dL (7-18); CALCIUM 8.8 MG/DL (8.5-10.1); CARBON DIOXIDE 18 MMOL/L (21-32); CHLORIDE 107 MMOL/L (98-107); CHOLESTEROL 74 MG/DL (< 200); CREATININE 3.3 MG/DL (0.55-1.30); HDL CHOLESTEROL 49 MG/DL (40-60); POTASSIUM 4.8 MMOL/L (3.5-5.1); SODIUM 140 MMOL/L (136-145); TRIGLYCERIDES 43 MG/DL (30-150)
--- NOTE | 2019-11-25 06:54 | NUR ---
NURSE NOTES: MD Milton called back with orders to increase Vent settings, Now AC 25. RT Deirdre aware.
--- NOTE | 2019-11-25 06:55 | NUR ---
RESPIRATORY NOTE: Changed RR to 20bpm, pt is tolerating well. RN Julieth made aware. Will continue to monitor.
--- NOTE | 2019-11-25 07:30 | NUR ---
NURSE NOTES: Change to ac 20
--- NOTE | 2019-11-25 08:29 | Pulmonolgy Critical Care Note ---
Critical Care - Asmt/Plan Problems: (1) ARDS (adult respiratory distress syndrome) (2) Septic shock (3) Acute respiratory failure (4) HCAP (healthcare-associated pneumonia) (5) Chronic systolic heart failure (6) Chronic kidney disease, stage 3 (7) Diabetes mellitus (8) History of hypertension (9) History of gout (10) History of left below knee amputation Respiratory: monitor respiratory rate, adjust FIO2, CXR Cardiac: continue to monitor HR/BP Renal: F/U I&O Infectious Disease: check cultures Gastrointestinal: hold feedings Endocrine: monitor blood sugar, continue sliding scale insulin Hematologic: monitor H/H, transfuse if hgb<8.5 Neurologic: PRN Morphine, keep patient comfortable Affect: PRN ativan Prophylaxis: Protonix, Heparin Time Spent (Minutes): 40 Notes 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, 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 Discussed with: nurses, consultants, family preservation caseworkerjunior brand manager - Objective Last 24 Hour Vital Signs Date Time Temp Pulse Resp B/P (MAP) Pulse Ox O2 Delivery O2 Flow Rate FiO2 11/25/19 07:00 96 23 92/61 (71) 100 11/25/19 07:00 105/67 11/25/19 06:41 100 22 100 11/25/19 06:30 103 23 127/66 (86) 100 11/25/19 06:00 105 21 145/69 (94) 100 11/25/19 06:00 145/50 11/25/19 05:30 100 21 131/69 (89) 100 11/25/19 05:05 104 23 100 11/25/19 05:00 104 21 133/76 (95) 100 11/25/19 05:00 106 23 145/72 (96) 91 11/25/19 05:00 133/76 11/25/19 04:54 128/78 11/25/19 04:30 100 21 124/66 (85) 88 11/25/19 04:00 89 11/25/19 04:00 100.3 104 21 117/66 (83) 83 11/25/19 04:00 100 11/25/19 03:30 102 21 119/70 (86) 82 11/25/19 03:00 100 20 118/65 (82) 83 11/25/19 02:50 106 20 100 11/25/19 02:30 97 19 106/50 (68) 83 11/25/19 02:00 86 17 89/56 (67) 85 11/25/19 01:30 86 18 92/53 (66) 72 11/25/19 01:28 86 19 100 11/25/19 01:28 100.3 11/25/19 01:17 83/52 11/25/19 01:00 85 17 92/48 (63) 92 11/25/19 01:00 18 Mechanical Ventilator 100 11/25/19 00:30 88 18 90/50 (63) 91 11/25/19 00:00 100.0 11/25/19 00:00 98 11/25/19 00:00 18 Mechanical Ventilator 11/25/19 00:00 101.0 90 17 94/52 (66) 92 11/24/19 23:30 94 18 93/58 (70) 95 11/24/19 23:00 93 17 92/55 (67) 95 11/24/19 23:00 17 Mechanical Ventilator 100 11/24/19 22:45 92 17 92/56 (68) 99 11/24/19 22:40 92 17 100 11/24/19 22:30 93 17 92/55 (67) 98 11/24/19 22:15 93 17 83/53 (63) 94 11/24/19 22:00 96 16 89/57 (68) 99 11/24/19 22:00 18 Mechanical Ventilator 100 11/24/19 21:45 93 16 85/50 (62) 97 11/24/19 21:30 92 16 84/47 (59) 96 11/24/19 21:17 94 17 87/47 (60) 95 11/24/19 21:15 95 16 90/55 (67) 96 11/24/19 21:00 96 17 100 11/24/19 21:00 20 Mechanical Ventilator 100 11/24/19 21:00 97 17 93/52 (66) 95 11/24/19 20:45 97 18 99/53 (68) 95 11/24/19 20:30 98 16 104/57 (73) 96 11/24/19 20:15 98 18 101/57 (72) 95 11/24/19 20:00 98 11/24/19 20:00 100.0 11/24/19 20:00 100.4 100 19 100/59 (73) 96 11/24/19 19:54 19 Mechanical Ventilator 100 11/24/19 19:00 101 22 100 11/24/19 19:00 104 22 120/65 (83) 97 11/24/19 18:30 102 22 115/66 (82) 98 11/24/19 18:00 101 23 122/67 (85) 97 11/24/19 17:30 102 24 122/63 (82) 98 11/24/19 17:20 102 24 100 11/24/19 17:00 108 31 137/65 (89) 100 11/24/19 16:30 106 28 125/63 (83) 100 11/24/19 16:29 100.0 11/24/19 16:24 107 30 100 11/24/19 16:15 108 29 134/64 (87) 100 11/24/19 16:00 109 28 138/70 (92) 100 11/24/19 16:00 Mechanical Ventilator 11/24/19 16:00 99 11/24/19 15:58 32 Mechanical Ventilator 100 11/24/19 15:45 110 31 152/74 (100) 100 11/24/19 15:36 100.0 11/24/19 15:30 100.0 109 31 146/67 (93) 100 11/24/19 15:12 108 34 100 11/24/19 15:00 98.8 105 20 160/84 97 Mechanical Ventilator 15.0 100 11/24/19 14:46 104 27 93 Mechanical Ventilator 100 108 26 100 11/24/19 14:34 98.8 102 18 166/84 90 Mechanical Ventilator 15.0 100 11/24/19 14:20 99.5 73 0 162/84 65 Ambu-Bag 15.0 100 11/24/19 14:15 108 34 79 Non-Rebreather 15.0 100 11/24/19 14:05 Mechanical Ventilator 11/24/19 12:53 97 28 94 100 11/24/19 12:32 98.8 93 28 143/80 100 Bi-pap 15.0 100 11/24/19 11:30 98.9 79 22 162/73 91 Bi-pap 15.0 100 11/24/19 10:30 98.9 87 24 155/72 93 Bi-pap 15.0 100 11/24/19 10:21 91 31 93 100 11/24/19 09:46 99.0 84 26 148/77 100 Bi-pap 15.0 100 11/24/19 09:35 100 11/24/19 09:30 96 34 Non-Rebreather 15.0 100 11/24/19 09:30 95 34 96 100 11/24/19 09:23 174/76 11/24/19 09:19 99.0 76 26 174/76 74 Non-Rebreather 15.0 Status: sedated Condition: critical HEENT: atraumatic Lungs: rales, rhonchi Heart: HR/BP stable Abdomen: soft, non-tender Extremities: no C/C/E Micro: Microbiology Date/Time Source Procedure Growth Status 11/24/19 00:50 Nasal Nares - Final Complete 11/24/19 00:50 Nasal Nares - Final Complete 11/24/19 05:17 Rectum Received Accucheck: 153 Critical Care - Subjective ROS Limited/Unobtainable: Yes Condition: critical EKG Rhythm: Sinus Rhythm FI02: 100 Vent Support Breath Rate: 16 Vent Support Mode: AC Vent Tidal Volume: 600 Sputum Amount: Scant PEEP: 10.0 PIP: 34 Drips: levophed is off, fentanyl drip is off I&O: Intake and Output 11/24/19 11/25/19 18:59 06:59 Intake Total 423.71486 ml 1807.00 ml Output Total 220 ml 330 ml Balance 203.79823 ml 1477.00 ml Intake IV Total 423.64273 ml 1807.00 ml Output Urine Total 220 ml 330 ml Stool Total 0 ml CXR: extensive bilateral infiltrate ET-Tube: 7.5 ET Position: 23 Labs: Laboratory Tests Test 11/24/19 09:36 11/24/19 09:42 11/24/19 17:20 11/24/19 17:23 Arterial Blood pH 7.261 (7.350-7.450) 7.351 (7.350-7.450) Arterial Blood Partial Pressure CO2 34.0 mmHg (35.0-45.0) L 33.2 mmHg (35.0-45.0) L Arterial Blood Partial Pressure O2 101.1 mmHg (75.0-100.0) H 55.0 mmHg (75.0-100.0) L Arterial Blood HCO3 14.9 mmol/L (22.0-26.0) *L 18.0 mmol/L (22.0-26.0) L Arterial Blood Oxygen Saturation 96.7 % (95-100) 86.7 % (95-100) *L Arterial Blood Base Excess -11.1 (-2-2) *L -6.8 (-2-2) L Garry Test Positive Positive Troponin I 0.320 ng/mL (0.000-0.056) Urine Color Pale yellow Urine Appearance Clear Urine pH 5 (4.5-8.0) Urine Specific [place] 1.010 (1.005-1.035) Urine Protein 3+ (NEGATIVE) H Urine Glucose (UA) Negative (NEGATIVE) Urine Ketones Negative (NEGATIVE) Urine Blood 3+ (NEGATIVE) H Urine Nitrite Negative (NEGATIVE) Urine Bilirubin Negative (NEGATIVE) Urine Urobilinogen Normal MG/DL (0.0-1.0) Urine Leukocyte Esterase Negative (NEGATIVE) Urine RBC 2-4 /HPF (0 - 0) H Urine WBC 0-2 /HPF (0 - 0) Urine Squamous Epithelial Cells None /LPF (NONE/OCC) Urine Calcium Oxalate Crystals Few /LPF (NONE) Urine Amorphous Sediment Moderate /LPF (NONE) H Urine Bacteria Moderate /HPF (NONE) H Urine Eosinophils None seen (NONE SEEN) Urine Osmolality 394 mOsm/kg (429-449) L Urine Random Creatinine Pending Urine Random Microalbumin Pending Urine Random Sodium 48 mmol/L (20-110) Urine Microalbumin/Creatinine Ratio Pending Test 11/24/19 17:45 11/25/19 02:20 11/25/19 04:35 Uric Acid 5.5 MG/DL (2.6-7.2) Total Creatine Kinase 119 U/L (26-308) Troponin I 0.298 ng/mL (0.000-0.056) 0.514 ng/mL (0.000-0.056) Arterial Blood pH 7.198 (7.350-7.450) Arterial Blood Partial Pressure CO2 47.5 mmHg (35.0-45.0) H Arterial Blood Partial Pressure O2 46.8 mmHg (75.0-100.0) Arterial Blood HCO3 18.1 mmol/L (22.0-26.0) L Arterial Blood Oxygen Saturation 76.9 % (95-100) *L Arterial Blood Base Excess -9.6 (-2-2) *L Garry Test Positive White Blood Count 15.8 K/UL (4.8-10.8) H Red Blood Count 3.10 M/UL (4.70-6.10) L Hemoglobin 8.9 G/DL (14.2-18.0) L Hematocrit 27.1 % (42.0-52.0) L Mean Corpuscular Volume 87 FL (80-99) Mean Corpuscular Hemoglobin 28.7 PG (27.0-31.0) Mean Corpuscular Hemoglobin Concent 32.9 G/DL (32.0-36.0) Red Cell Distribution Width 15.8 % (11.6-14.8) H Platelet Count 387 K/UL (150-450) Mean Platelet Volume 5.8 FL (6.5-10.1) L Neutrophils (%) (Auto) % (45.0-75.0) Lymphocytes (%) (Auto) % (20.0-45.0) Monocytes (%) (Auto) % (1.0-10.0) Eosinophils (%) (Auto) % (0.0-3.0) Basophils (%) (Auto) % (0.0-2.0) Sodium Level 140 MMOL/L (136-145) Potassium Level 4.8 MMOL/L (3.5-5.1) Chloride Level 107 MMOL/L (98-107) Carbon Dioxide Level 18 MMOL/L (21-32) L Anion Gap 15 mmol/L (5-15) Blood Urea Nitrogen 72 mg/dL (7-18) H Creatinine 3.3 MG/DL (0.55-1.30) H Estimat Glomerular Filtration Rate 23.5 mL/min (>60) Glucose Level 167 MG/DL (74-106) H Lactic Acid Level 2.00 mmol/L (0.4-2.0) Calcium Level 8.8 MG/DL (8.5-10.1) Phosphorus Level 5.6 MG/DL (2.5-4.9) H Total Bilirubin 1.1 MG/DL (0.2-1.0) H Direct Bilirubin Pending Aspartate Amino Transf (AST/SGOT) 77 U/L (15-37) H Alanine Aminotransferase (ALT/SGPT) 30 U/L (12-78) Alkaline Phosphatase 83 U/L (46-116) Total Protein 6.8 G/DL (6.4-8.2) Albumin 2.2 G/DL (3.4-5.0) L Globulin 4.6 g/dL Albumin/Globulin Ratio 0.5 (1.0-2.7) L Triglycerides Level 43 MG/DL (30-150) Cholesterol Level 74 MG/DL (< 200) LDL Cholesterol 18 mg/dL (<100) HDL Cholesterol 49 MG/DL (40-60) Cholesterol/HDL Ratio 1.5 (3.3-4.4) L Random Vancomycin Level Pending Brandy Milton MD Nov 25, 2019 08:29
--- NOTE | 2019-11-25 08:38 | NUR ---
NURSE NOTES: Dr mireles was here and evaluated pt. With orders given.
[2019-11-25 08:41] LABS: BILIRUBIN,DIRECT 0.7 MG/DL (0.0-0.3)
[2019-11-25] MEDS: Heparin 5000 units/ml inj SUBQ SCH ×2 (08:45→21:24)
[2019-11-25] MEDS ORDERED: Allopurinol 100mg Tab ORAL SCH (09:00)
[2019-11-25] MEDS ORDERED: Pantoprazole Inj IV SCH (09:00)
--- NOTE | 2019-11-25 09:17 | NUR ---
RD ASSESSMENT & RECOMMENDATIONS SEE CARE ACTIVITY FOR COMPLETE ASSESSMENT DAILY ESTIMATED NEEDS: Needs based on Critical care, sepsis 75kg adj 22-28 kcals/kg 3569-2380 total kcals 1.2-2 g protein/kg 90-150 g total protein 25-30 mL/kg 6392-2160 total fluid mLs NUTRITION DIAGNOSIS: Swallowing difficulty r/t resp status as evidenced by septic shock now s/p intubation, w/ NGT, NPO at this time. ENTERAL NUTRITION RECOMMENDATIONS: Nepro @40ml/hr x24 hrs + Prosource BID to provide 960ml, 78g + 22 g pro, 698ml free H2O - As medically appropriate, rec non oral feeds via NGT - Start Nepro @20ml/hr for 6 hrs. Advance as tolerated 10ml/hr q4-6 hrs to goal. - Add Prosource BID to better meet est pro needs - Flush per MD. 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
--- NOTE | 2019-11-25 09:40 | Consultation ---
Consult Note Consult Note I was asked to evaluate the patient at the request of Dr Ceja for renal failure. Patient was seen in ICU. Patient is intubated. Patient was on blood pressure support medication. Patient is intubated. Patient has a Cruz catheter. Patient has an NG tube to suction. No history is obtainable from the patient. History mainly taken from the records. Emergency room physician's information was reviewed. The patient initially had presented to the emergency room with worsening shortness of breath. This morning, he was started on BiPAP. While awaiting to go upstairs, he subsequently improved. Several hours later, he had diminished respiratory effort and was intubated with respiratory distress and the patient was admitted to the hospital for further evaluation. This consultation was subsequently requested. The patient is not able to provide any meaningful history. PAST MEDICAL HIS data reviewed. TORY: History of diabetes mellitus, cellulitis , history of allergic rhinitis, coronary artery disease stent and angioplasty, history of prosthetic aortic valve although I do not see a surgical scar, history of amputation, esophagitis, muscle wasting, kidney failure, peripheral vascular disease, anemia, chronic systolic congestive heart failure, hyperlipidemia, hypertension, chronic disease. Patient examined. Data reviewed. Assessment/Plan Acute renal failure- ? Underlying CKD Respiratory failure Anemia Sepsis / Shock ? Pneumonia DM HTN by history Gout left BKA Plan: Hydrate Antibiotics urine studies avoid nephrotoxics monitor renal parameters Anemia hairston per orders discussed with Tej Marroquin MD Nov 25, 2019 09:40
[2019-11-25] MEDS: LORazepam Inj 2mg/ml 1ml IV PRN (09:41)
--- NOTE | 2019-11-25 09:41 | NUR ---
NURSE NOTES: Pt so agitated at this time- Ativan 2mg ivp was given.
[2019-11-25 09:58] LABS: INR 1.2 (0.9-1.1)
[2019-11-25 10:03] LABS: LACTATE DEHYDROGENASE 427 U/L (81-234)
--- NOTE | 2019-11-25 10:35 | NUR ---
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 Pt is orally intubated and was in sleep when SW attempted to assess him. SW reviewed the chart. SW spoke w/ pt's daughter Aracely Arellano [phone]. Pt resides at [facility], [address] [place] [address]. Per Aracely, there is no POA but she will be the primary decision maker if pt cannot make one. The second emergency contact is Kristan Kirby (friend) [phone]. Copy of POLST is available in the chart. Aracely is requesting pt to return [facility] upon DC. Aracely does not have any concern/issue/needs at this time. SW to F/U as needed. Signed: 11/25/19 at 1039 by CASE GUERRERO <Co-Signature Required>
--- NOTE | 2019-11-25 11:00 | NUR ---
NURSE NOTES: Dr Byrd was here and check pt. Md is aware with pts critical condition.
[2019-11-25 11:03] LABS: % IRON SATURATION 12 % (15-50); IRON 14 ug/dL (50-175); TOTAL IRON BINDING CAPACITY 121 ug/dL (250-450)
[2019-11-25] MEDS ORDERED: Vancomycin 1.5gm/NS Premix q24h IVPB SCH (11:30)
--- NOTE | 2019-11-25 11:42 | Consultation ---
History of Present Illness General Date patient seen: Nov 25, 2019 Chief Complaint: Upper Respiratory Illness Present Illness HPI 59 y/o M with hx of Dm2, Gout, s/p L BKA, allergic rhinitis, CAD s/p stent, prosthetic AVR, esophagitis, CKD, PVD, chronic sCHF, HLD, HTN, SNF resident presented to ED on 11/24 with 6 days of worsening SOB, fever and productive cough. He required bipap initially but because of diminished respiratory effort patient was intubated and admitted to ICU. Patient became hypotensive, central line placed and started on Levophed (up to 15), now off pressors. CXR showed pneumonia. Denied nausea, vomiting, chest pain Allergies: Coded Allergies: No Known Allergies (Unverified , 11/24/19) Medication History Scheduled Allopurinol* (Allopurinol*), 100 MG ORAL DAILY, (Reported) Amino Acids/Protein Hydrolys (Pro-Stat Liquid), 30 ML ORAL TWICE A DAY, ( Reported) Amlodipine Besylate* (Amlodipine Besylate*), 10 MG ORAL DAILY, (Reported) Ascorbic Acid* (Vitamin C*), 500 MG ORAL DAILY, (Reported) Atorvastatin Calcium* (Atorvastatin Calcium*), 80 MG ORAL BEDTIME, (Reported) Docusate Sodium* (Docusate Sodium*), 100 MG ORAL TWICE A DAY, (Reported) Fluticasone Propionate (Flonase Allergy Relief), 1 SPRAYS NS BID, (Reported) Levofloxacin* (Levaquin*), 500 MG ORAL DAILY, (Reported) Metoprolol Succinate* (Metoprolol Succinate*), 100 MG ORAL DAILY, (Reported) Multivitamin With Minerals (Multivitamins With Minerals*), 1 TAB ORAL DAILY, ( Reported) Mupirocin* (Mupirocin*), 1 APPLIC TOPIC DAILY, (Reported) Pantoprazole* (Protonix*), 40 MG ORAL DAILY, (Reported) Scheduled PRN Acetaminophen (Tylenol), 650 MG PO EVERY 4 HOURS PRN for For Pain, (Reported) Bisacodyl* (Dulcolax*), 10 MG ORAL ONCE PRN for Constipation, (Reported) D-Methorphan Hb/Prometh Hcl* (Promethazine-Dm Syrup*), 5 ML ORAL Q4H PRN for For Cough, (Reported) Furosemide* (Lasix*), 20 MG ORAL DAILY PRN for LEG SWELLING, (Reported) Hydrocodone Bit/Acetaminophen 5-325* ([place] 5-325*), 2 TAB ORAL Q6H PRN for For Pain, (Reported) Ipratropium/Albuterol Sulfate (DuoNeb 0.5-3(2.5)mg/3ml), 3 ML HHN EVERY 6 HOURS PRN for Shortness of breath, (Reported) Meloxicam* (Mobic*), 7.5 MG ORAL DAILY PRN for For Pain, (Reported) Miscellaneous Medications Insulin Lispro (Humalog), 0 SUBQ, (Reported) Patient History Healthcare decision maker Resuscitation status Full Code Advanced Directive on File Yes Patient History Narrative Pmhx: as above Shx:Denies: smoking Fhx: non contributory Review of Systems All Other Systems: negative except mentioned in HPI Physical Exam Physical Exam Narrative GENERAL: The patient is a well-developed and well-nourished male, in moderate respiratory distress. HEENT: Eyes, pupils are equal and responsive to light and accommodation. Extraocular movements are intact. NECK: Supple without lymphadenopathy. CHEST: Mechanical breath sounds, otherwise without wheezes or rales. CARDIOVASCULAR: Regular rate. S1 and S2 normal without murmurs, rubs, or gallops. ABDOMEN: Soft, nontender, and nondistended. Positive bowel sounds. No evidence of hepatosplenomegaly. Currently, no rebound or guarding noted. EXTREMITIES: Negative for clubbing, cyanosis, or edema.. NEUROLOGIC: Cranial nerves II through XII are grossly intact without focal deficits. Last 24 Hour Vital Signs Date Time Temp Pulse Resp B/P (MAP) Pulse Ox O2 Delivery O2 Flow Rate FiO2 11/25/19 10:57 90 22 100 11/25/19 10:00 99.8 91 22 91/65 (74) 100 11/25/19 09:00 93 22 107/70 (82) 100 11/25/19 08:45 92 22 100 11/25/19 08:00 92 11/25/19 08:00 100.0 95 21 102/69 (80) 99 11/25/19 08:00 100 11/25/19 07:00 96 23 92/61 (71) 100 11/25/19 07:00 105/67 11/25/19 06:41 100 22 100 2/14/20 06:30 103 23 127/66 (86) 100 11/25/19 06:00 105 21 145/69 (94) 100 11/25/19 06:00 145/50 11/25/19 05:30 100 21 131/69 (89) 100 11/25/19 05:05 104 23 100 11/25/19 05:00 104 21 133/76 (95) 100 11/25/19 05:00 106 23 145/72 (96) 91 11/25/19 05:00 133/76 11/25/19 04:54 128/78 11/25/19 04:30 100 21 124/66 (85) 88 11/25/19 04:00 89 11/25/19 04:00 100.3 104 21 117/66 (83) 83 11/25/19 04:00 100 11/25/19 03:30 102 21 119/70 (86) 82 11/25/19 03:00 100 20 118/65 (82) 83 11/25/19 02:50 106 20 100 11/25/19 02:30 97 19 106/50 (68) 83 11/25/19 02:00 86 17 89/56 (67) 85 11/25/19 01:30 86 18 92/53 (66) 72 11/25/19 01:28 86 19 100 11/25/19 01:28 100.3 11/25/19 01:17 83/52 11/25/19 01:00 85 17 92/48 (63) 92 11/25/19 01:00 18 Mechanical Ventilator 100 11/25/19 00:30 88 18 90/50 (63) 91 11/25/19 00:00 100.0 11/25/19 00:00 98 11/25/19 00:00 18 Mechanical Ventilator 11/25/19 00:00 101.0 90 17 94/52 (66) 92 11/24/19 23:30 94 18 93/58 (70) 95 11/24/19 23:00 93 17 92/55 (67) 95 11/24/19 23:00 17 Mechanical Ventilator 100 11/24/19 22:45 92 17 92/56 (68) 99 11/24/19 22:40 92 17 100 11/24/19 22:30 93 17 92/55 (67) 98 11/24/19 22:15 93 17 83/53 (63) 94 11/24/19 22:00 96 16 89/57 (68) 99 11/24/19 22:00 18 Mechanical Ventilator 100 11/24/19 21:45 93 16 85/50 (62) 97 11/24/19 21:30 92 16 84/47 (59) 96 11/24/19 21:17 94 17 87/47 (60) 95 11/24/19 21:15 95 16 90/55 (67) 96 11/24/19 21:00 96 17 100 11/24/19 21:00 20 Mechanical Ventilator 100 11/24/19 21:00 97 17 93/52 (66) 95 11/24/19 20:45 97 18 99/53 (68) 95 11/24/19 20:30 98 16 104/57 (73) 96 11/24/19 20:15 98 18 101/57 (72) 95 11/24/19 20:00 98 11/24/19 20:00 100.0 11/24/19 20:00 100.4 100 19 100/59 (73) 96 11/24/19 19:54 19 Mechanical Ventilator 100 11/24/19 19:00 101 22 100 11/24/19 19:00 104 22 120/65 (83) 97 11/24/19 18:30 102 22 115/66 (82) 98 11/24/19 18:00 101 23 122/67 (85) 97 11/24/19 17:30 102 24 122/63 (82) 98 11/24/19 17:20 102 24 100 11/24/19 17:00 108 31 137/65 (89) 100 11/24/19 16:30 106 28 125/63 (83) 100 11/24/19 16:29 100.0 11/24/19 16:24 107 30 100 11/24/19 16:15 108 29 134/64 (87) 100 11/24/19 16:00 109 28 138/70 (92) 100 11/24/19 16:00 Mechanical Ventilator 11/24/19 16:00 99 11/24/19 15:58 32 Mechanical Ventilator 100 11/24/19 15:45 110 31 152/74 (100) 100 11/24/19 15:36 100.0 11/24/19 15:30 100.0 109 31 146/67 (93) 100 11/24/19 15:12 108 34 100 11/24/19 15:00 98.8 105 20 160/84 97 Mechanical Ventilator 15.0 100 11/24/19 14:46 104 27 93 Mechanical Ventilator 100 108 26 100 11/24/19 14:34 98.8 102 18 166/84 90 Mechanical Ventilator 15.0 100 11/24/19 14:20 99.5 73 0 162/84 65 Ambu-Bag 15.0 100 11/24/19 14:15 108 34 79 Non-Rebreather 15.0 100 11/24/19 14:05 Mechanical Ventilator 11/24/19 12:53 97 28 94 100 11/24/19 12:32 98.8 93 28 143/80 100 Bi-pap 15.0 100 11/24/19 11:30 98.9 79 22 162/73 91 Bi-pap 15.0 100 Intake and Output 11/24/19 11/25/19 19:00 07:00 Intake Total 699.06031 ml 1656.25 ml Output Total 250 ml 360 ml Balance 449.71126 ml 1296.25 ml Intake IV Total 699.84450 ml 1656.25 ml Output Urine Total 250 ml 360 ml Stool Total 0 ml Laboratory Tests Test 11/24/19 17:20 11/24/19 17:23 11/24/19 17:45 11/25/19 02:20 Urine Color Pale yellow Urine Appearance Clear Urine pH 5 (4.5-8.0) Urine Specific [place] 1.010 (1.005-1.035) Urine Protein 3+ (NEGATIVE) H Urine Glucose (UA) Negative (NEGATIVE) Urine Ketones Negative (NEGATIVE) Urine Blood 3+ (NEGATIVE) H Urine Nitrite Negative (NEGATIVE) Urine Bilirubin Negative (NEGATIVE) Urine Urobilinogen Normal MG/DL (0.0-1.0) Urine Leukocyte Esterase Negative (NEGATIVE) Urine RBC 2-4 /HPF (0 - 0) H Urine WBC 0-2 /HPF (0 - 0) Urine Squamous Epithelial Cells None /LPF (NONE/OCC) Urine Calcium Oxalate Crystals Few /LPF (NONE) Urine Amorphous Sediment Moderate /LPF (NONE) H Urine Bacteria Moderate /HPF (NONE) H Urine Eosinophils None seen (NONE SEEN) Urine Osmolality 394 mOsm/kg (429-449) L Urine Random Creatinine Pending Urine Random Microalbumin Pending Urine Random Sodium 48 mmol/L (20-110) Urine Microalbumin/Creatinine Ratio Pending Arterial Blood pH 7.351 (7.350-7.450) 7.198 (7.350-7.450) Arterial Blood Partial Pressure CO2 33.2 mmHg (35.0-45.0) L 47.5 mmHg (35.0-45.0) H Arterial Blood Partial Pressure O2 55.0 mmHg (75.0-100.0) L 46.8 mmHg (75.0-100.0) Arterial Blood HCO3 18.0 mmol/L (22.0-26.0) L 18.1 mmol/L (22.0-26.0) L Arterial Blood Oxygen Saturation 86.7 % (95-100) *L 76.9 % (95-100) *L Arterial Blood Base Excess -6.8 (-2-2) L -9.6 (-2-2) *L Garry Test Positive Positive Uric Acid 5.5 MG/DL (2.6-7.2) Total Creatine Kinase 119 U/L (26-308) Troponin I 0.298 ng/mL (0.000-0.056) Test 11/25/19 04:35 11/25/19 08:50 11/25/19 09:25 White Blood Count 15.8 K/UL (4.8-10.8) H Red Blood Count 3.10 M/UL (4.70-6.10) L Hemoglobin 8.9 G/DL (14.2-18.0) L Hematocrit 27.1 % (42.0-52.0) L Mean Corpuscular Volume 87 FL (80-99) Mean Corpuscular Hemoglobin 28.7 PG (27.0-31.0) Mean Corpuscular Hemoglobin Concent 32.9 G/DL (32.0-36.0) Red Cell Distribution Width 15.8 % (11.6-14.8) H Platelet Count 387 K/UL (150-450) Mean Platelet Volume 5.8 FL (6.5-10.1) L Neutrophils (%) (Auto) % (45.0-75.0) Lymphocytes (%) (Auto) % (20.0-45.0) Monocytes (%) (Auto) % (1.0-10.0) Eosinophils (%) (Auto) % (0.0-3.0) Basophils (%) (Auto) % (0.0-2.0) Neutrophils % (Manual) Pending Lymphocytes % (Manual) Pending Platelet Estimate Pending Platelet Morphology Pending Sodium Level 140 MMOL/L (136-145) Potassium Level 4.8 MMOL/L (3.5-5.1) Chloride Level 107 MMOL/L (98-107) Carbon Dioxide Level 18 MMOL/L (21-32) L Anion Gap 15 mmol/L (5-15) Blood Urea Nitrogen 72 mg/dL (7-18) H Creatinine 3.3 MG/DL (0.55-1.30) H Estimat Glomerular Filtration Rate 23.5 mL/min (>60) Glucose Level 167 MG/DL (74-106) H Lactic Acid Level 2.00 mmol/L (0.4-2.0) Calcium Level 8.8 MG/DL (8.5-10.1) Phosphorus Level 5.6 MG/DL (2.5-4.9) H Total Bilirubin 1.1 MG/DL (0.2-1.0) H Direct Bilirubin 0.7 MG/DL (0.0-0.3) H Aspartate Amino Transf (AST/SGOT) 77 U/L (15-37) H Alanine Aminotransferase (ALT/SGPT) 30 U/L (12-78) Alkaline Phosphatase 83 U/L (46-116) Troponin I 0.514 ng/mL (0.000-0.056) Total Protein 6.8 G/DL (6.4-8.2) Albumin 2.2 G/DL (3.4-5.0) L Globulin 4.6 g/dL Albumin/Globulin Ratio 0.5 (1.0-2.7) L Triglycerides Level 43 MG/DL (30-150) Cholesterol Level 74 MG/DL (< 200) LDL Cholesterol 18 mg/dL (<100) HDL Cholesterol 49 MG/DL (40-60) Cholesterol/HDL Ratio 1.5 (3.3-4.4) L Random Vancomycin Level 13.8 ug/mL Erythrocyte Sedimentation Rate Pending Reticulocyte Count Pending Prothrombin Time 12.2 SEC (9.30-11.50) H Prothromb Time International Ratio 1.2 (0.9-1.1) H Activated Partial Thromboplast Time 37 SEC (23-33) H Iron Level 14 ug/dL (50-175) L Total Iron Binding Capacity 121 ug/dL (250-450) L Percent Iron Saturation 12 % (15-50) L Unsaturated Iron Binding 107 ug/dL (112-346) L Ferritin 1535 NG/ML (8-388) H Lactate Dehydrogenase 427 U/L (81-234) H Carcinoembryonic Antigen Pending Vitamin B12 Level 562 PG/ML (193-986) Folate 3.5 NG/ML (8.6-58.9) L HIV (1&2) Antibody Rapid Negative (NEGATIVE) Arterial Blood pH 7.300 (7.350-7.450) Arterial Blood Partial Pressure CO2 33.4 mmHg (35.0-45.0) L Arterial Blood Partial Pressure O2 310.1 mmHg (75.0-100.0) H Arterial Blood HCO3 16.1 mmol/L (22.0-26.0) *L Arterial Blood Oxygen Saturation 99.0 % (95-100) Arterial Blood Base Excess -9.4 (-2-2) *L Garry Test Positive Height (Feet): 5 Height (Inches): 8.00 Weight (Pounds): 246 Medications Current Medications Medications (Trade) Dose Ordered Sig/Valeriano Route PRN Reason Start Time Stop Time Status Last Admin Dose Admin Acetaminophen (Tylenol) 650 mg Q4H PRN ORAL FEVER 11/24/19 13:30 12/24/19 13:29 11/25/19 00:58 Albuterol/ Ipratropium (Albuterol/ Ipratropium) 3 ml Q4H PRN HHN Shortness of Breath 11/24/19 13:30 11/29/19 13:29 11/24/19 14:46 Cefepime HCl 2 gm/ Dextrose 110 ml @ 220 mls/hr Q24H IV 11/24/19 21:00 12/01/19 20:59 11/24/19 21:15 Chlorhexidine Gluconate (Katia-Hex 2%) 1 applic DAILY@2000 TOPIC 11/25/19 20:00 12/25/19 19:59 Dextrose (Dextrose 50%) 25 ml Q30M PRN IV Hypoglycemia 11/24/19 13:30 12/24/19 13:29 Dextrose (Dextrose 50%) 50 ml Q30M PRN IV Hypoglycemia 11/24/19 13:30 12/24/19 13:29 Fentanyl Citrate 2500 mcg/Sodium Chloride 250 ml @ 0 mls/hr Q24H IV 11/24/19 20:00 12/01/19 19:59 11/24/19 19:54 Heparin Sodium (Porcine) (Heparin 5000 units/ml) 5,000 units EVERY 12 HOURS SUBQ 11/24/19 21:00 12/24/19 20:59 11/25/19 08:45 Hydrocortisone (Solu-CORTEF) 100 mg EVERY 8 HOURS IV 11/25/19 14:00 12/25/19 13:59 Insulin Aspart (NovoLOG) BEFORE MEALS AND HS SUBQ 11/24/19 16:30 12/24/19 16:29 11/25/19 06:22 Lorazepam (Ativan 2mg/ml 1ml) 2 mg Q4H PRN IV For Anxiety 11/24/19 15:15 12/01/19 15:14 11/25/19 09:41 Morphine Sulfate (Morphine Sulfate) 4 mg Q4H PRN IVP For Pain 11/24/19 15:15 12/01/19 15:14 Nitroglycerin (Ntg) 0.4 mg Q5M PRN SL Prn Chest Pain 11/24/19 09:30 12/24/19 09:29 11/24/19 09:23 Norepinephrine Bitartrate 8 mg/ Dextrose 500 ml @ 0 mls/hr Q24H IV 11/25/19 04:30 12/25/19 04:29 11/25/19 04:54 Ondansetron HCl (Zofran) 4 mg Q6H PRN IVP Nausea & Vomiting 11/24/19 13:30 12/24/19 13:29 Pantoprazole (Protonix) 40 mg Q12HR IV 11/25/19 21:00 12/25/19 08:59 Polyethylene Glycol (Miralax) 17 gm DAILYPRN PRN ORAL Constipation 11/24/19 13:30 12/24/19 13:29 Promethazine HCl/ Codeine (Phenergan with Codeine) 5 ml Q4H PRN ORAL For Cough 11/24/19 13:30 12/24/19 13:29 Sodium Chloride 1,000 ml @ 125 mls/hr Q8H IV 11/24/19 13:28 12/24/19 13:27 11/25/19 04:32 Vancomycin HCl (Vanco rx to dose) 1 ea DAILY PRN MISC . 11/24/19 13:30 12/24/19 13:29 Vancomycin/Sodium Chloride 275 ml @ 137.5 mls/ hr ONCE IVPB 11/25/19 11:30 11/25/19 13:00 Assessment/Plan Assessment/Plan: Abx: IV Vancomycin 11/24- Cefepime 11/24- Levaquin x1 11/24 Assessment: Septic Shock- off pressors now Pneumonia -11/24 u/a neg Bcx NTD influenza sc neg CXR: Bilateral dense consolidation, likely pneumonia. Pulmonary edema also possible. Correlate with clinical findings sp cx p FEver Leukocytosis, increased ARDS ACute respiratory failure s/p intubation 11/24 GANGA on CKD Elevated LFTs Troponinemia Dm2 Gout s/p L BKA allergic rhinitis CAD s/p stent prosthetic AVR hx of esophagitis PVD chronic sCHF HLD HTN SNF resident Plan: -Continue empiric IV Vancomycin and Cefepime #2 pending sp cx -COntinue empiric LEvaquin #2 for legionella pending test -Start empiric Tamiflu despite neg screen test -f/u cx -Monitor CBC/CMP, temperatures -sp cx -ICU/ETT care -aspiration precautions Thank you for this consultation. Will continue to follow along with you. Discussed with Yojana Agrawal M.D. Nov 25, 2019 11:42
--- NOTE | 2019-11-25 12:06 | Diagnostic Imaging Report ---
Indication:Elevated Bun and Creatinine. Technique: Grayscale and duplex Doppler imaging of the kidneys performed. Comparison: None Findings: Kidneys are echogenic but normal in volume, contour and size. There is a question of a nonobstructive stone in the right kidney given a focus of echogenicity, which may be calcium. The right kidney measures 12 cm. in length. The left kidney measures 12 cm. in length. The IVC is patent. Urinary bladder is unremarkable. Cruz catheter noted. IMPRESSION: Medical renal disease. Question of a nonobstructive stone in the right kidney. Cruz catheter
--- NOTE | 2019-11-25 12:53 | Cardiology Progress Note ---
Assessment/Plan Assessment/Plan 1. Respiratory failure, probably pneumonia. 2. History of chronic congestive heart failure although I suspect most problems are related pulmonary mercer. 3. History of aortic valve replacement per records, no surgical scar on the chest wall. 4. History of coronary artery disease, unknown details. 5. Abnormal cardiac enzymes likely secondary to demand 6. septic shock 7. renal failure 8. metabolic respiratory acidosis 9. ARDS rough nite last nite bp dropped febrile hypoxemia was stated on Levophed, bolus with ivf increased peep adn sedative were dcd overnite he ahs improved now off levophed is awke on the vent and is responsive min increase in trop likley demand related cxr personally reviewed suggestive of ards renal function appears worse iv abx vent support includign PEEP Subjective Cardiovascular: Denies: chest pain, lightheadedness, palpitations Respiratory: Reports: shortness of breath; Denies: cough Gastrointestinal/Abdominal: Denies: abdominal pain Genitourinary: Denies: burning Objective Last 24 Hour Vital Signs Date Time Temp Pulse Resp B/P (MAP) Pulse Ox O2 Delivery O2 Flow Rate FiO2 11/25/19 11:30 91 22 106/68 (81) 100 11/25/19 11:00 91 22 91/65 (74) 100 11/25/19 10:57 90 22 100 11/25/19 10:30 91 21 99/63 (75) 100 11/25/19 10:00 99.8 91 22 91/65 (74) 100 11/25/19 09:00 93 22 107/70 (82) 100 11/25/19 08:45 92 22 100 11/25/19 08:00 92 11/25/19 08:00 100.0 95 21 102/69 (80) 99 11/25/19 08:00 100 11/25/19 07:00 96 23 92/61 (71) 100 11/25/19 07:00 105/67 11/25/19 06:41 100 22 100 11/25/19 06:30 103 23 127/66 (86) 100 11/25/19 06:00 105 21 145/69 (94) 100 11/25/19 06:00 145/50 11/25/19 05:30 100 21 131/69 (89) 100 11/25/19 05:05 104 23 100 11/25/19 05:00 104 21 133/76 (95) 100 11/25/19 05:00 106 23 145/72 (96) 91 11/25/19 05:00 133/76 11/25/19 04:54 128/78 11/25/19 04:30 100 21 124/66 (85) 88 11/25/19 04:00 89 11/25/19 04:00 100.3 104 21 117/66 (83) 83 11/25/19 04:00 100 11/25/19 03:30 102 21 119/70 (86) 82 11/25/19 03:00 100 20 118/65 (82) 83 11/25/19 02:50 106 20 100 11/25/19 02:30 97 19 106/50 (68) 83 11/25/19 02:00 86 17 89/56 (67) 85 11/25/19 01:30 86 18 92/53 (66) 72 11/25/19 01:28 86 19 100 11/25/19 01:28 100.3 11/25/19 01:17 83/52 11/25/19 01:00 85 17 92/48 (63) 92 11/25/19 01:00 18 Mechanical Ventilator 100 11/25/19 00:30 88 18 90/50 (63) 91 11/25/19 00:00 100.0 11/25/19 00:00 98 11/25/19 00:00 18 Mechanical Ventilator 11/25/19 00:00 101.0 90 17 94/52 (66) 92 11/24/19 23:30 94 18 93/58 (70) 95 11/24/19 23:00 93 17 92/55 (67) 95 11/24/19 23:00 17 Mechanical Ventilator 100 11/24/19 22:45 92 17 92/56 (68) 99 11/24/19 22:40 92 17 100 11/24/19 22:30 93 17 92/55 (67) 98 11/24/19 22:15 93 17 83/53 (63) 94 11/24/19 22:00 96 16 89/57 (68) 99 11/24/19 22:00 18 Mechanical Ventilator 100 11/24/19 21:45 93 16 85/50 (62) 97 11/24/19 21:30 92 16 84/47 (59) 96 11/24/19 21:17 94 17 87/47 (60) 95 11/24/19 21:15 95 16 90/55 (67) 96 11/24/19 21:00 96 17 100 11/24/19 21:00 20 Mechanical Ventilator 100 11/24/19 21:00 97 17 93/52 (66) 95 11/24/19 20:45 97 18 99/53 (68) 95 11/24/19 20:30 98 16 104/57 (73) 96 11/24/19 20:15 98 18 101/57 (72) 95 11/24/19 20:00 98 11/24/19 20:00 100.0 11/24/19 20:00 100.4 100 19 100/59 (73) 96 11/24/19 19:54 19 Mechanical Ventilator 100 11/24/19 19:00 101 22 100 11/24/19 19:00 104 22 120/65 (83) 97 11/24/19 18:30 102 22 115/66 (82) 98 11/24/19 18:00 101 23 122/67 (85) 97 11/24/19 17:30 102 24 122/63 (82) 98 11/24/19 17:20 102 24 100 11/24/19 17:00 108 31 137/65 (89) 100 11/24/19 16:30 106 28 125/63 (83) 100 11/24/19 16:29 100.0 11/24/19 16:24 107 30 100 11/24/19 16:15 108 29 134/64 (87) 100 11/24/19 16:00 109 28 138/70 (92) 100 11/24/19 16:00 Mechanical Ventilator 11/24/19 16:00 99 11/24/19 15:58 32 Mechanical Ventilator 100 11/24/19 15:45 110 31 152/74 (100) 100 11/24/19 15:36 100.0 11/24/19 15:30 100.0 109 31 146/67 (93) 100 11/24/19 15:12 108 34 100 11/24/19 15:00 98.8 105 20 160/84 97 Mechanical Ventilator 15.0 100 11/24/19 14:46 104 27 93 Mechanical Ventilator 100 108 26 100 11/24/19 14:34 98.8 102 18 166/84 90 Mechanical Ventilator 15.0 100 11/24/19 14:20 99.5 73 0 162/84 65 Ambu-Bag 15.0 100 11/24/19 14:15 108 34 79 Non-Rebreather 15.0 100 11/24/19 14:05 Mechanical Ventilator 11/24/19 12:53 97 28 94 100 General Appearance: no apparent distress, alert, on vent, patient on isolation Neck: supple Cardiovascular: regular rhythm Respiratory/Chest: lungs clear - ant Abdomen: normal bowel sounds, non tender, soft Extremities: moderate edema Intake and Output 11/24/19 11/25/19 18:59 06:59 Intake Total 423.41125 ml 1807.00 ml Output Total 220 ml 330 ml Balance 203.65820 ml 1477.00 ml Intake IV Total 423.19741 ml 1807.00 ml Output Urine Total 220 ml 330 ml Stool Total 0 ml Laboratory Tests Test 11/24/19 17:20 11/24/19 17:23 11/24/19 17:45 11/25/19 02:20 Urine Color Pale yellow Urine Appearance Clear Urine pH 5 (4.5-8.0) Urine Specific [place] 1.010 (1.005-1.035) Urine Protein 3+ (NEGATIVE) H Urine Glucose (UA) Negative (NEGATIVE) Urine Ketones Negative (NEGATIVE) Urine Blood 3+ (NEGATIVE) H Urine Nitrite Negative (NEGATIVE) Urine Bilirubin Negative (NEGATIVE) Urine Urobilinogen Normal MG/DL (0.0-1.0) Urine Leukocyte Esterase Negative (NEGATIVE) Urine RBC 2-4 /HPF (0 - 0) H Urine WBC 0-2 /HPF (0 - 0) Urine Squamous Epithelial Cells None /LPF (NONE/OCC) Urine Calcium Oxalate Crystals Few /LPF (NONE) Urine Amorphous Sediment Moderate /LPF (NONE) H Urine Bacteria Moderate /HPF (NONE) H Urine Eosinophils None seen (NONE SEEN) Urine Osmolality 394 mOsm/kg (429-449) L Urine Random Creatinine Pending Urine Random Microalbumin Pending Urine Random Sodium 48 mmol/L (20-110) Urine Microalbumin/Creatinine Ratio Pending Arterial Blood pH 7.351 (7.350-7.450) 7.198 (7.350-7.450) Arterial Blood Partial Pressure CO2 33.2 mmHg (35.0-45.0) L 47.5 mmHg (35.0-45.0) H Arterial Blood Partial Pressure O2 55.0 mmHg (75.0-100.0) L 46.8 mmHg (75.0-100.0) Arterial Blood HCO3 18.0 mmol/L (22.0-26.0) L 18.1 mmol/L (22.0-26.0) L Arterial Blood Oxygen Saturation 86.7 % (95-100) *L 76.9 % (95-100) *L Arterial Blood Base Excess -6.8 (-2-2) L -9.6 (-2-2) *L Garry Test Positive Positive Uric Acid 5.5 MG/DL (2.6-7.2) Total Creatine Kinase 119 U/L (26-308) Troponin I 0.298 ng/mL (0.000-0.056) Test 11/25/19 04:35 11/25/19 08:50 11/25/19 09:25 White Blood Count 15.8 K/UL (4.8-10.8) H Red Blood Count 3.10 M/UL (4.70-6.10) L Hemoglobin 8.9 G/DL (14.2-18.0) L Hematocrit 27.1 % (42.0-52.0) L Mean Corpuscular Volume 87 FL (80-99) Mean Corpuscular Hemoglobin 28.7 PG (27.0-31.0) Mean Corpuscular Hemoglobin Concent 32.9 G/DL (32.0-36.0) Red Cell Distribution Width 15.8 % (11.6-14.8) H Platelet Count 387 K/UL (150-450) Mean Platelet Volume 5.8 FL (6.5-10.1) L Neutrophils (%) (Auto) % (45.0-75.0) Lymphocytes (%) (Auto) % (20.0-45.0) Monocytes (%) (Auto) % (1.0-10.0) Eosinophils (%) (Auto) % (0.0-3.0) Basophils (%) (Auto) % (0.0-2.0) Differential Total Cells Counted 100 Neutrophils % (Manual) 71 % (45-75) Lymphocytes % (Manual) 10 % (20-45) L Monocytes % (Manual) 3 % (1-10) Eosinophils % (Manual) 0 % (0-3) Basophils % (Manual) 0 % (0-2) Band Neutrophils 16 % (0-8) H Platelet Estimate Adequate Platelet Morphology Normal Hypochromasia 1+ Anisocytosis 1+ Sodium Level 140 MMOL/L (136-145) Potassium Level 4.8 MMOL/L (3.5-5.1) Chloride Level 107 MMOL/L (98-107) Carbon Dioxide Level 18 MMOL/L (21-32) L Anion Gap 15 mmol/L (5-15) Blood Urea Nitrogen 72 mg/dL (7-18) H Creatinine 3.3 MG/DL (0.55-1.30) H Estimat Glomerular Filtration Rate 23.5 mL/min (>60) Glucose Level 167 MG/DL (74-106) H Lactic Acid Level 2.00 mmol/L (0.4-2.0) Calcium Level 8.8 MG/DL (8.5-10.1) Phosphorus Level 5.6 MG/DL (2.5-4.9) H Total Bilirubin 1.1 MG/DL (0.2-1.0) H Direct Bilirubin 0.7 MG/DL (0.0-0.3) H Aspartate Amino Transf (AST/SGOT) 77 U/L (15-37) H Alanine Aminotransferase (ALT/SGPT) 30 U/L (12-78) Alkaline Phosphatase 83 U/L (46-116) Troponin I 0.514 ng/mL (0.000-0.056) Total Protein 6.8 G/DL (6.4-8.2) Albumin 2.2 G/DL (3.4-5.0) L Globulin 4.6 g/dL Albumin/Globulin Ratio 0.5 (1.0-2.7) L Triglycerides Level 43 MG/DL (30-150) Cholesterol Level 74 MG/DL (< 200) LDL Cholesterol 18 mg/dL (<100) HDL Cholesterol 49 MG/DL (40-60) Cholesterol/HDL Ratio 1.5 (3.3-4.4) L Random Vancomycin Level 13.8 ug/mL Erythrocyte Sedimentation Rate 116 MM/HR (0-20) H Reticulocyte Count 0.4 % (0.5-2.0) L Prothrombin Time 12.2 SEC (9.30-11.50) H Prothromb Time International Ratio 1.2 (0.9-1.1) H Activated Partial Thromboplast Time 37 SEC (23-33) H Iron Level 14 ug/dL (50-175) L Total Iron Binding Capacity 121 ug/dL (250-450) L Percent Iron Saturation 12 % (15-50) L Unsaturated Iron Binding 107 ug/dL (112-346) L Ferritin 1535 NG/ML (8-388) H Lactate Dehydrogenase 427 U/L (81-234) H Carcinoembryonic Antigen Pending Vitamin B12 Level 562 PG/ML (193-986) Folate 3.5 NG/ML (8.6-58.9) L HIV (1&2) Antibody Rapid Negative (NEGATIVE) Arterial Blood pH 7.300 (7.350-7.450) Arterial Blood Partial Pressure CO2 33.4 mmHg (35.0-45.0) L Arterial Blood Partial Pressure O2 310.1 mmHg (75.0-100.0) H Arterial Blood HCO3 16.1 mmol/L (22.0-26.0) *L Arterial Blood Oxygen Saturation 99.0 % (95-100) Arterial Blood Base Excess -9.4 (-2-2) *L Garry Test Positive Microbiology Date/Time Source Procedure Growth Status 11/24/19 00:50 Blood Blood Culture - Preliminary NO GROWTH AFTER 24 HOURS Resulted 11/24/19 00:35 Blood Blood Culture - Preliminary NO GROWTH AFTER 24 HOURS Resulted 11/24/19 00:50 Nasal Nares - Final Complete 11/24/19 00:50 Nasal Nares - Final Complete 11/24/19 05:17 Rectum Received Antonio Byrd MD Nov 25, 2019 12:53
[2019-11-25] MEDS ORDERED: Levofloxacin 750mg tab ORAL SCH (13:00)
--- NOTE | 2019-11-25 13:24 | NUR ---
NURSE NOTES: BP 104/64 , resting well at this time. daughter called and updated with pts condition.
[2019-11-25] MEDS: Hydrocortisone 100mg Inj IV SCH ×2 (13:37→21:22)
--- NOTE | 2019-11-25 14:10 | NUR ---
RECOVERY AUDITORART MANAGER SI; RESP FAILURE ETT/VENT SUPPORT T. 99.4 HR 90 RR 22 B/P 106/66 AC 20 TV 600 FIO2 100% PEEP 5 PH 7.30 PCO2 33.4 PO2 310.1 HCO3 16.1 O2 SAT 99.0 WBC 15.8 BANDS 16 ESR 116 IS: CEFEPIME IV IVF NS @ 125ML/HR SOLU CORTEF IV PROTONIX IV LEVAQUIN NGT ICU STATUS
--- NOTE | 2019-11-25 14:23 | NUR ---
IT SECURITY CONSULTANT NOTES CLINICALS REVIEWED AND FAXED TO [facility] [phone]. NO IT SECURITY CONSULTANT ASSIGNED @ THIS TIME.
--- NOTE | 2019-11-25 14:57 | Internal Med Progress Note ---
Subjective Physician Name Cezar Ceja Attending Physician Cezar Ceja MD Current Medications Medications (Trade) Dose Ordered Sig/Valeriano Route PRN Reason Start Time Stop Time Status Last Admin Dose Admin Acetaminophen (Tylenol) 650 mg Q4H PRN ORAL FEVER 11/24/19 13:30 12/24/19 13:29 11/25/19 00:58 Albuterol/ Ipratropium (Albuterol/ Ipratropium) 3 ml Q4H PRN HHN Shortness of Breath 11/24/19 13:30 11/29/19 13:29 11/24/19 14:46 Cefepime HCl 2 gm/ Dextrose 110 ml @ 220 mls/hr Q24H IV 11/24/19 21:00 12/01/19 20:59 11/24/19 21:15 Chlorhexidine Gluconate (Katia-Hex 2%) 1 applic DAILY@2000 TOPIC 11/25/19 20:00 12/25/19 19:59 Dextrose (Dextrose 50%) 25 ml Q30M PRN IV Hypoglycemia 11/24/19 13:30 12/24/19 13:29 Dextrose (Dextrose 50%) 50 ml Q30M PRN IV Hypoglycemia 11/24/19 13:30 12/24/19 13:29 Fentanyl Citrate 2500 mcg/Sodium Chloride 250 ml @ 0 mls/hr Q24H IV 11/24/19 20:00 12/01/19 19:59 11/24/19 19:54 Heparin Sodium (Porcine) (Heparin 5000 units/ml) 5,000 units EVERY 12 HOURS SUBQ 11/24/19 21:00 12/24/19 20:59 11/25/19 08:45 Hydrocortisone (Solu-CORTEF) 100 mg EVERY 8 HOURS IV 11/25/19 14:00 12/25/19 13:59 11/25/19 13:37 Insulin Aspart (NovoLOG) BEFORE MEALS AND HS SUBQ 11/24/19 16:30 12/24/19 16:29 11/25/19 06:22 Levofloxacin (Levaquin) 750 mg Q48H ORAL 11/25/19 13:00 12/02/19 12:59 11/25/19 13:29 Lorazepam (Ativan 2mg/ml 1ml) 2 mg Q4H PRN IV For Anxiety 11/24/19 15:15 12/01/19 15:14 11/25/19 09:41 Morphine Sulfate (Morphine Sulfate) 4 mg Q4H PRN IVP For Pain 11/24/19 15:15 12/01/19 15:14 Nitroglycerin (Ntg) 0.4 mg Q5M PRN SL Prn Chest Pain 11/24/19 09:30 12/24/19 09:29 11/24/19 09:23 Norepinephrine Bitartrate 8 mg/ Dextrose 500 ml @ 0 mls/hr Q24H IV 11/25/19 04:30 12/25/19 04:29 11/25/19 04:54 Ondansetron HCl (Zofran) 4 mg Q6H PRN IVP Nausea & Vomiting 11/24/19 13:30 12/24/19 13:29 Oseltamivir Phosphate (Tamiflu) 30 mg DAILY ORAL 11/25/19 13:00 11/30/19 12:59 11/25/19 13:30 Pantoprazole (Protonix) 40 mg Q12HR IV 11/25/19 21:00 12/25/19 08:59 Polyethylene Glycol (Miralax) 17 gm DAILYPRN PRN ORAL Constipation 11/24/19 13:30 12/24/19 13:29 Promethazine HCl/ Codeine (Phenergan with Codeine) 5 ml Q4H PRN ORAL For Cough 11/24/19 13:30 12/24/19 13:29 Sodium Chloride 1,000 ml @ 125 mls/hr Q8H IV 11/24/19 13:28 12/24/19 13:27 11/25/19 13:26 Vancomycin HCl (Vanco rx to dose) 1 ea DAILY PRN MISC . 11/24/19 13:30 12/24/19 13:29 Allergies: Coded Allergies: No Known Allergies (Unverified , 11/24/19) Subjective in MICU, Intubated sedated. Objective Last Vital Signs Date Time Temp Pulse Resp B/P (MAP) Pulse Ox O2 Delivery O2 Flow Rate FiO2 11/25/19 13:00 90 21 104/64 (77) 100 11/25/19 12:49 100 11/25/19 12:00 99.4 11/25/19 01:00 Mechanical Ventilator 11/25/19 00:00 100.0 Laboratory Tests Test 11/24/19 17:20 11/24/19 17:23 11/24/19 17:45 11/25/19 02:20 Urine Color Pale yellow Urine Appearance Clear Urine pH 5 (4.5-8.0) Urine Specific [employer] 1.010 (1.005-1.035) Urine Protein 3+ (NEGATIVE) H Urine Glucose (UA) Negative (NEGATIVE) Urine Ketones Negative (NEGATIVE) Urine Blood 3+ (NEGATIVE) H Urine Nitrite Negative (NEGATIVE) Urine Bilirubin Negative (NEGATIVE) Urine Urobilinogen Normal MG/DL (0.0-1.0) Urine Leukocyte Esterase Negative (NEGATIVE) Urine RBC 2-4 /HPF (0 - 0) H Urine WBC 0-2 /HPF (0 - 0) Urine Squamous Epithelial Cells None /LPF (NONE/OCC) Urine Calcium Oxalate Crystals Few /LPF (NONE) Urine Amorphous Sediment Moderate /LPF (NONE) H Urine Bacteria Moderate /HPF (NONE) H Urine Eosinophils None seen (NONE SEEN) Urine Osmolality 394 mOsm/kg (429-449) L Urine Random Creatinine Pending Urine Random Microalbumin Pending Urine Random Sodium 48 mmol/L (20-110) Urine Microalbumin/Creatinine Ratio Pending Arterial Blood pH 7.351 (7.350-7.450) 7.198 (7.350-7.450) Arterial Blood Partial Pressure CO2 33.2 mmHg (35.0-45.0) L 47.5 mmHg (35.0-45.0) H Arterial Blood Partial Pressure O2 55.0 mmHg (75.0-100.0) L 46.8 mmHg (75.0-100.0) Arterial Blood HCO3 18.0 mmol/L (22.0-26.0) L 18.1 mmol/L (22.0-26.0) L Arterial Blood Oxygen Saturation 86.7 % (95-100) *L 76.9 % (95-100) *L Arterial Blood Base Excess -6.8 (-2-2) L -9.6 (-2-2) *L Garry Test Positive Positive Uric Acid 5.5 MG/DL (2.6-7.2) Total Creatine Kinase 119 U/L (26-308) Troponin I 0.298 ng/mL (0.000-0.056) Test 11/25/19 04:35 11/25/19 08:50 11/25/19 09:25 White Blood Count 15.8 K/UL (4.8-10.8) H Red Blood Count 3.10 M/UL (4.70-6.10) L Hemoglobin 8.9 G/DL (14.2-18.0) L Hematocrit 27.1 % (42.0-52.0) L Mean Corpuscular Volume 87 FL (80-99) Mean Corpuscular Hemoglobin 28.7 PG (27.0-31.0) Mean Corpuscular Hemoglobin Concent 32.9 G/DL (32.0-36.0) Red Cell Distribution Width 15.8 % (11.6-14.8) H Platelet Count 387 K/UL (150-450) Mean Platelet Volume 5.8 FL (6.5-10.1) L Neutrophils (%) (Auto) % (45.0-75.0) Lymphocytes (%) (Auto) % (20.0-45.0) Monocytes (%) (Auto) % (1.0-10.0) Eosinophils (%) (Auto) % (0.0-3.0) Basophils (%) (Auto) % (0.0-2.0) Differential Total Cells Counted 100 Neutrophils % (Manual) 71 % (45-75) Lymphocytes % (Manual) 10 % (20-45) L Monocytes % (Manual) 3 % (1-10) Eosinophils % (Manual) 0 % (0-3) Basophils % (Manual) 0 % (0-2) Band Neutrophils 16 % (0-8) H Other Cell Type Pathologist review Platelet Estimate Adequate Platelet Morphology Normal Hypochromasia 1+ Anisocytosis 1+ Sodium Level 140 MMOL/L (136-145) Potassium Level 4.8 MMOL/L (3.5-5.1) Chloride Level 107 MMOL/L (98-107) Carbon Dioxide Level 18 MMOL/L (21-32) L Anion Gap 15 mmol/L (5-15) Blood Urea Nitrogen 72 mg/dL (7-18) H Creatinine 3.3 MG/DL (0.55-1.30) H Estimat Glomerular Filtration Rate 23.5 mL/min (>60) Glucose Level 167 MG/DL (74-106) H Lactic Acid Level 2.00 mmol/L (0.4-2.0) Calcium Level 8.8 MG/DL (8.5-10.1) Phosphorus Level 5.6 MG/DL (2.5-4.9) H Total Bilirubin 1.1 MG/DL (0.2-1.0) H Direct Bilirubin 0.7 MG/DL (0.0-0.3) H Aspartate Amino Transf (AST/SGOT) 77 U/L (15-37) H Alanine Aminotransferase (ALT/SGPT) 30 U/L (12-78) Alkaline Phosphatase 83 U/L (46-116) Troponin I 0.514 ng/mL (0.000-0.056) Total Protein 6.8 G/DL (6.4-8.2) Albumin 2.2 G/DL (3.4-5.0) L Globulin 4.6 g/dL Albumin/Globulin Ratio 0.5 (1.0-2.7) L Triglycerides Level 43 MG/DL (30-150) Cholesterol Level 74 MG/DL (< 200) LDL Cholesterol 18 mg/dL (<100) HDL Cholesterol 49 MG/DL (40-60) Cholesterol/HDL Ratio 1.5 (3.3-4.4) L Random Vancomycin Level 13.8 ug/mL Erythrocyte Sedimentation Rate 116 MM/HR (0-20) H Reticulocyte Count 0.4 % (0.5-2.0) L Prothrombin Time 12.2 SEC (9.30-11.50) H Prothromb Time International Ratio 1.2 (0.9-1.1) H Activated Partial Thromboplast Time 37 SEC (23-33) H Iron Level 14 ug/dL (50-175) L Total Iron Binding Capacity 121 ug/dL (250-450) L Percent Iron Saturation 12 % (15-50) L Unsaturated Iron Binding 107 ug/dL (112-346) L Ferritin 1535 NG/ML (8-388) H Lactate Dehydrogenase 427 U/L (81-234) H Carcinoembryonic Antigen Pending Vitamin B12 Level 562 PG/ML (193-986) Folate 3.5 NG/ML (8.6-58.9) L HIV (1&2) Antibody Rapid Negative (NEGATIVE) Arterial Blood pH 7.300 (7.350-7.450) Arterial Blood Partial Pressure CO2 33.4 mmHg (35.0-45.0) L Arterial Blood Partial Pressure O2 310.1 mmHg (75.0-100.0) H Arterial Blood HCO3 16.1 mmol/L (22.0-26.0) *L Arterial Blood Oxygen Saturation 99.0 % (95-100) Arterial Blood Base Excess -9.4 (-2-2) *L Garry Test Positive Microbiology Date/Time Source Procedure Growth Status 11/24/19 00:50 Blood Blood Culture - Preliminary NO GROWTH AFTER 24 HOURS Resulted 11/24/19 00:35 Blood Blood Culture - Preliminary NO GROWTH AFTER 24 HOURS Resulted 11/24/19 00:50 Nasal Nares - Final Complete 11/24/19 00:50 Nasal Nares - Final Complete 11/24/19 05:17 Rectum Received Intake and Output 11/24/19 11/25/19 19:00 07:00 Intake Total 699.32593 ml 1656.25 ml Output Total 250 ml 360 ml Balance 449.81687 ml 1296.25 ml Intake IV Total 699.44306 ml 1656.25 ml Output Urine Total 250 ml 360 ml Stool Total 0 ml Objective General: intubated, sedated, HEENT: NCAT, sclera anicteric, PERRL, Neck: Supple, Right IJ TLC. Lungs: Mechanical breath sound, no Wheeze or Rales. Heart: Regular rate and rhythm, normal S1/S2, no murmurs Abdomen: soft, nontender, nondistended. Normoactive bowel sounds. / Rectal: Refused and deferred. Extremities: No Cyanosis , clubbing or edema, Left BKA. Neuro: Sedated, Able to move all extremities slowly. Assessment/Plan Assessment/Plan (1) ARDS (adult respiratory distress syndrome) (2) Septic shock (3) Acute respiratory failure (4) HCAP (healthcare-associated pneumonia) (5) Chronic systolic heart failure (6) Chronic kidney disease, stage 3 (7) Diabetes mellitus (8) History of hypertension (9) History of gout (10) History of left below knee amputation Plan: wean off vent Abx: Cefepime , Vanco IV, Levaquin on Tamiflu wean off pressor Hydrocortisone IV Monitor labs and cultures. Cezar Ceja MD Nov 25, 2019 14:57
--- NOTE | 2019-11-25 15:42 | NUR ---
HAND-OFF: Report given to Patricia MIRZA.
--- NOTE | 2019-11-25 15:43 | NUR ---
NURSE NOTES: Received patient from YUKI Clancy. Will continue plan of care.
--- NOTE | 2019-11-25 16:00 | NUR ---
NURSE NOTES: Patient is orally intubated. ETT 7.5 @ 23cm to the lipline with vent settings of AC:16, TV:600, FiO2:100%, PEEP:10, O2 saturating at 100%. Started NGT feeding of Nepro @ 20ml/hr to reach goal of 40ml/hr. Right IJ central line in place and running 1/2 NS @ 125ml/hr. Patient had an elevated temp of 99.9F axillary. Cooling measures in place; fan on, covers off, ice water through NGT. Patient is awake and eyes tracking. Able to answer simple questions by shaking and nodding head. Safety measures in place; bed low, locked and alarm is on. Will continue plan of care.
--- NOTE | 2019-11-25 18:00 | NUR ---
NURSE NOTES: Patient is stable; BP: 119/67, HR:86, O2:100%. Able to motion that he is okay and comfortable. No change in condition. glucose check: 112 no coverage needed. EKG tracing done and placed into chart. Will continue to monitor.
[2019-11-25] MEDS: Dyna-Hex 2% Top Sol 2oz TOPIC SCH (19:36)
[2019-11-25] MEDS: fentaNYL Citrate 2500mcg in NS 250ml IV SCH (19:37)
--- NOTE | 2019-11-25 20:00 | NUR ---
NURSE NOTES: Patient temp 100.0F axillary with cooling measures. Tylenol PRN given via NGT. Reassessed and current temp decreased to 99.6F axillary. Turned and reposition. Low urine output; averaging 30ml/hr. Will continue to monitor.
[2019-11-25] MEDS: Pantoprazole Inj IV SCH (21:23)
[2019-11-25] MEDS: Cefepime HCl 2 GM in D5W 110 ML IV SCH (21:23)
--- NOTE | 2019-11-25 22:00 | NUR ---
NURSE NOTES: Turned and repositioned. No residual noted via NGT; increased feeding to 30ml/hr. Patient is comfortable. Will continue plan of care.
[2019-11-26] VITALS (24 sets, daily range): BP systolic 122–168; BP diastolic 67–85
--- NOTE | 2019-11-26 | NUR ---
NURSE NOTES: Patient is sleeping comfortably. No residual via NGT, feeding increased to goal (40ml/hr). Safety measures in place. Temp down to 99.4F axillary. Will continue care.
--- NOTE | 2019-11-26 02:00 | NUR ---
NURSE NOTES: See paper chart.
--- NOTE | 2019-11-26 04:00 | NUR ---
NURSE NOTES: See paper chart.
--- NOTE | 2019-11-26 06:00 | NUR ---
NURSE NOTES: See paper chart.
[2019-11-26] MEDS: Hydrocortisone 100mg Inj IV SCH (06:07)
[2019-11-26] MEDS: NovoLOG Insulin Flexpen SUBQ SCH ×4 (06:34→20:19)
[2019-11-26 06:44] LABS: HEMATOCRIT 22.6 % (42.0-52.0); HEMOGLOBIN 7.6 G/DL (14.2-18.0); MEAN CORPUSCULAR VOLUME 85 FL (80-99); PLATELET COUNT 261 K/UL (150-450); RED BLOOD COUNT 2.65 M/UL (4.70-6.10); RED CELL DISTRIBUTION WIDTH 14.4 % (11.6-14.8); WHITE BLOOD COUNT 10.1 K/UL (4.8-10.8)
--- NOTE | 2019-11-26 06:51 | Infectious Diseases Prog Note ---
Assessment/Plan Assessment/Plan Abx: IV Vancomycin 11/24- Cefepime 11/24- Levaquin 11/24- Tamiflu 11/25- Assessment: Septic Shock- off pressors now Pneumonia -11/24 u/a neg Bcx NTD influenza sc neg CXR: Bilateral dense consolidation, likely pneumonia. Pulmonary edema also possible. Correlate with clinical findings sp cx p Fever, improving Leukocytosis, increased ARDS Acute respiratory failure s/p intubation 11/24 GANGA on CKD Elevated LFTs Troponinemia Dm2 Gout s/p L BKA allergic rhinitis CAD s/p stent prosthetic AVR hx of esophagitis PVD chronic sCHF HLD HTN SNF resident Plan: -Continue empiric IV Vancomycin and Cefepime #3 pending sp cx -Continue empiric LEvaquin #3 for legionella pending test -continue empiric Tamiflu #2 despite neg screen test -f/u cx -Monitor CBC/CMP, temperatures -sp cx -ICU/ETT care -aspiration precautions discussed with RN Thank you for this consultation. Will continue to follow along with you. Subjective Allergies: Coded Allergies: No Known Allergies (Unverified , 11/24/19) Subjective Afebrile. Tmax 100 FiO2 100% Off pressors Leukocytosis resolved Objective Vital Signs Last 24 Hour Vital Signs Date Time Temp Pulse Resp B/P (MAP) Pulse Ox O2 Delivery O2 Flow Rate FiO2 11/26/19 06:00 84 21 139/83 (101) 100 11/26/19 05:00 85 20 143/83 (103) 100 11/26/19 04:30 139/83 11/26/19 04:00 Mechanical Ventilator 11/26/19 04:00 100 11/26/19 04:00 97.2 85 20 144/75 (98) 100 11/26/19 04:00 81 11/26/19 03:00 81 23 131/75 (93) 100 11/26/19 02:00 82 15 132/71 (91) 100 11/26/19 01:07 80 21 100 11/26/19 01:00 82 20 122/70 (87) 100 11/26/19 00:00 99.4 80 16 125/70 (88) 100 11/26/19 00:00 Mechanical Ventilator 11/26/19 00:00 100 11/25/19 23:04 82 11/25/19 23:00 81 17 122/71 (88) 100 11/25/19 22:49 81 21 100 11/25/19 22:00 82 20 122/68 (86) 100 11/25/19 21:13 85 20 100 11/25/19 21:00 86 18 123/66 (85) 100 11/25/19 20:06 99.6 11/25/19 20:01 86 11/25/19 20:00 Mechanical Ventilator 11/25/19 20:00 100 11/25/19 20:00 100.0 85 20 124/72 (89) 100 11/25/19 19:01 82 20 100 11/25/19 19:00 82 20 105/62 (76) 100 11/25/19 18:00 86 19 119/67 (84) 100 11/25/19 17:00 87 21 119/71 (87) 100 11/25/19 16:34 86 20 100 11/25/19 16:00 Mechanical Ventilator 11/25/19 16:00 99.9 86 19 114/70 (85) 100 11/25/19 16:00 100 11/25/19 15:33 85 11/25/19 15:00 85 20 104/61 (75) 100 11/25/19 14:40 86 21 100 11/25/19 14:00 87 20 105/60 (75) 100 11/25/19 13:00 90 21 104/64 (77) 100 11/25/19 12:49 90 20 100 11/25/19 12:00 Mechanical Ventilator 11/25/19 12:00 100 11/25/19 12:00 90 11/25/19 12:00 99.4 90 22 106/66 (79) 100 11/25/19 11:30 91 22 106/68 (81) 100 11/25/19 11:00 91 22 91/65 (74) 100 11/25/19 10:57 90 22 100 11/25/19 10:30 91 21 99/63 (75) 100 11/25/19 10:00 99.8 91 22 91/65 (74) 100 11/25/19 09:00 93 22 107/70 (82) 100 11/25/19 08:45 92 22 100 11/25/19 08:00 92 11/25/19 08:00 100.0 95 21 102/69 (80) 99 11/25/19 08:00 100 11/25/19 08:00 Mechanical Ventilator 11/25/19 07:00 96 23 92/61 (71) 100 11/25/19 07:00 105/67 Height (Feet): 5 Height (Inches): 8.00 Weight (Pounds): 246 Microbiology Date/Time Source Procedure Growth Status 11/24/19 00:50 Blood Blood Culture - Preliminary NO GROWTH AFTER 24 HOURS Resulted 11/24/19 00:35 Blood Blood Culture - Preliminary NO GROWTH AFTER 24 HOURS Resulted 11/24/19 05:17 Nasal Nares MRSA Culture - Final NO METHICILLIN RESISTANT STAPH AUREUS... Complete 11/24/19 00:50 Nasal Nares - Final Complete 11/24/19 00:50 Nasal Nares - Final Complete 11/24/19 05:17 Rectum Received Laboratory Tests Test 11/25/19 08:50 11/25/19 09:25 11/26/19 03:00 11/26/19 04:00 Erythrocyte Sedimentation Rate 116 MM/HR (0-20) H Reticulocyte Count 0.4 % (0.5-2.0) L Prothrombin Time 12.2 SEC (9.30-11.50) H Prothromb Time International Ratio 1.2 (0.9-1.1) H Activated Partial Thromboplast Time 37 SEC (23-33) H Iron Level 14 ug/dL (50-175) L Total Iron Binding Capacity 121 ug/dL (250-450) L Percent Iron Saturation 12 % (15-50) L Unsaturated Iron Binding 107 ug/dL (112-346) L Ferritin 1535 NG/ML (8-388) H Lactate Dehydrogenase 427 U/L (81-234) H Carcinoembryonic Antigen Pending Vitamin B12 Level 562 PG/ML (193-986) Folate 3.5 NG/ML (8.6-58.9) L HIV (1&2) Antibody Rapid Negative (NEGATIVE) Arterial Blood pH 7.300 (7.350-7.450) Arterial Blood Partial Pressure CO2 33.4 mmHg (35.0-45.0) L Arterial Blood Partial Pressure O2 310.1 mmHg (75.0-100.0) H Arterial Blood HCO3 16.1 mmol/L (22.0-26.0) *L Arterial Blood Oxygen Saturation 99.0 % (95-100) Arterial Blood Base Excess -9.4 (-2-2) *L Garry Test Positive Stool Occult Blood Pending White Blood Count Pending Red Blood Count Pending Hemoglobin Pending Hematocrit Pending Mean Corpuscular Volume Pending Mean Corpuscular Hemoglobin Pending Mean Corpuscular Hemoglobin Concent Pending Red Cell Distribution Width Pending Platelet Count Pending Mean Platelet Volume Pending Neutrophils (%) (Auto) Pending Lymphocytes (%) (Auto) Pending Monocytes (%) (Auto) Pending Eosinophils (%) (Auto) Pending Basophils (%) (Auto) Pending Sodium Level Pending Potassium Level Pending Chloride Level Pending Carbon Dioxide Level Pending Blood Urea Nitrogen Pending Creatinine Pending Estimat Glomerular Filtration Rate Pending Glucose Level Pending Calcium Level Pending Phosphorus Level Pending Magnesium Level Pending Total Bilirubin Pending Aspartate Amino Transf (AST/SGOT) Pending Alanine Aminotransferase (ALT/SGPT) Pending Alkaline Phosphatase Pending Total Protein Pending Albumin Pending Globulin Pending Current Medications Medications (Trade) Dose Ordered Sig/Valeriano Route PRN Reason Start Time Stop Time Status Last Admin Dose Admin Acetaminophen (Tylenol) 650 mg Q4H PRN ORAL FEVER 11/24/19 13:30 12/24/19 13:29 11/25/19 19:36 Albuterol/ Ipratropium (Albuterol/ Ipratropium) 3 ml Q4H PRN HHN Shortness of Breath 11/24/19 13:30 11/29/19 13:29 11/24/19 14:46 Cefepime HCl 2 gm/ Dextrose 110 ml @ 220 mls/hr Q24H IV 11/24/19 21:00 12/01/19 20:59 11/25/19 21:23 Chlorhexidine Gluconate (Katia-Hex 2%) 1 applic DAILY@2000 TOPIC 11/25/19 20:00 12/25/19 19:59 11/25/19 19:36 Dextrose (Dextrose 50%) 25 ml Q30M PRN IV Hypoglycemia 11/24/19 13:30 12/24/19 13:29 Dextrose (Dextrose 50%) 50 ml Q30M PRN IV Hypoglycemia 11/24/19 13:30 12/24/19 13:29 Fentanyl Citrate 2500 mcg/Sodium Chloride 250 ml @ 0 mls/hr Q24H IV 11/24/19 20:00 12/01/19 19:59 11/24/19 19:54 Heparin Sodium (Porcine) (Heparin 5000 units/ml) 5,000 units EVERY 12 HOURS SUBQ 11/24/19 21:00 12/24/19 20:59 11/25/19 21:24 Hydrocortisone (Solu-CORTEF) 100 mg EVERY 8 HOURS IV 11/25/19 14:00 12/25/19 13:59 11/26/19 06:07 Insulin Aspart (NovoLOG) BEFORE MEALS AND HS SUBQ 11/24/19 16:30 12/24/19 16:29 11/26/19 06:34 Levofloxacin (Levaquin) 750 mg Q48H ORAL 11/25/19 13:00 12/02/19 12:59 11/25/19 13:29 Lorazepam (Ativan 2mg/ml 1ml) 2 mg Q4H PRN IV For Anxiety 11/24/19 15:15 12/01/19 15:14 11/25/19 09:41 Morphine Sulfate (Morphine Sulfate) 4 mg Q4H PRN IVP For Pain 11/24/19 15:15 12/01/19 15:14 Nitroglycerin (Ntg) 0.4 mg Q5M PRN SL Prn Chest Pain 11/24/19 09:30 12/24/19 09:29 11/24/19 09:23 Norepinephrine Bitartrate 8 mg/ Dextrose 500 ml @ 0 mls/hr Q24H IV 11/25/19 04:30 12/25/19 04:29 11/25/19 04:54 Ondansetron HCl (Zofran) 4 mg Q6H PRN IVP Nausea & Vomiting 11/24/19 13:30 12/24/19 13:29 Oseltamivir Phosphate (Tamiflu) 30 mg DAILY ORAL 11/25/19 13:00 11/30/19 12:59 11/25/19 13:30 Pantoprazole (Protonix) 40 mg Q12HR IV 11/25/19 21:00 12/25/19 08:59 11/25/19 21:23 Polyethylene Glycol (Miralax) 17 gm DAILYPRN PRN ORAL Constipation 11/24/19 13:30 12/24/19 13:29 Promethazine HCl/ Codeine (Phenergan with Codeine) 5 ml Q4H PRN ORAL For Cough 11/24/19 13:30 12/24/19 13:29 Sodium Chloride 1,000 ml @ 125 mls/hr Q8H IV 11/24/19 13:28 12/24/19 13:27 11/26/19 06:00 Vancomycin HCl (Vanco rx to dose) 1 ea DAILY PRN MISC . 11/24/19 13:30 12/24/19 13:29 Tono Cox MD Nov 26, 2019 06:51
--- NOTE | 2019-11-26 07:12 | NUR ---
HAND-OFF: Report given to YUKI Sorto.
--- NOTE | 2019-11-26 07:13 | NUR ---
NURSE NOTES: Received patient from Patricia MIRZA. Patient is awake, alert and oriented x2-3, able to follow commands, and able to respond by nodding or shaking head. Sinus Rhythm on the Heart Monitor, HR 86. Receiving oxygen via ET Tube 7.5, 23cm at the lip line right side. NGT is intact in the right nares receiving Nepro at 40cc/hr. Cruz catheter is intact and draining. IV site is Right IJ receiving 1/2 NS at 125cc/hr. Bed is locked, placed in lowest position, side rails up x3, bed alarm on, head of bed elevated, call light within reach. Will continue to monitor.
[2019-11-26 07:20] LABS: ALANINE AMINOTRANSFERASE 69 U/L (12-78); ALBUMIN 1.9 G/DL (3.4-5.0); ALBUMIN/GLOBULIN RATIO 0.4 (1.0-2.7); ALKALINE PHOSPHATASE 83 U/L (46-116); ANION GAP 13 mmol/L (5-15); ASPARTATE AMINO TRANSFERASE 112 U/L (15-37); BILIRUBIN,TOTAL 0.7 MG/DL (0.2-1.0); BLOOD UREA NITROGEN 92 mg/dL (7-18); CALCIUM 8.6 MG/DL (8.5-10.1); CARBON DIOXIDE 19 MMOL/L (21-32); CHLORIDE 106 MMOL/L (98-107); CREATININE 4.5 MG/DL (0.55-1.30); PHOSPHORUS 6.2 MG/DL (2.5-4.9); POTASSIUM 4.5 MMOL/L (3.5-5.1); SODIUM 138 MMOL/L (136-145)
[2019-11-26] MEDS: LORazepam Inj 2mg/ml 1ml IV PRN (07:30)
[2019-11-26] MEDS: Pantoprazole Inj IV SCH ×2 (09:03→20:19)
[2019-11-26] MEDS: Heparin 5000 units/ml inj SUBQ SCH ×2 (09:04→20:20)
--- NOTE | 2019-11-26 11:12 | Nephrology Progress Note ---
Assessment/Plan Problem List: (1) ARF (acute renal failure) (2) Acute respiratory failure (3) Septic shock (4) Anemia (5) History of hypertension (6) Diabetes mellitus Assessment Acute renal failure- ? Underlying CKD Respiratory failure Anemia Sepsis / Shock ? Pneumonia DM HTN by history Gout left BKA Cardiomyopathy - Ej Fx 40% Plan Plan: Hydrate DC Hydrocortisone Antibiotics urine studies avoid nephrotoxics monitor renal parameters Anemia hairston per orders discussed with RN may require dialysis treatment Subjective ROS Limited/Unobtainable: Yes Objective Objective Last 24 Hour Vital Signs Date Time Temp Pulse Resp B/P (MAP) Pulse Ox O2 Delivery O2 Flow Rate FiO2 11/26/19 10:00 86 20 140/79 (99) 11/26/19 09:45 50 11/26/19 09:02 86 20 100 11/26/19 09:00 86 17 141/80 (100) 100 11/26/19 08:00 97.9 87 16 143/82 (102) 100 11/26/19 08:00 100 11/26/19 07:22 90 25 100 11/26/19 07:21 90 11/26/19 07:00 84 24 147/82 (103) 100 11/26/19 06:00 84 21 139/83 (101) 100 11/26/19 05:00 85 20 143/83 (103) 100 11/26/19 04:30 139/83 11/26/19 04:00 Mechanical Ventilator 11/26/19 04:00 100 11/26/19 04:00 97.2 85 20 144/75 (98) 100 11/26/19 04:00 81 11/26/19 03:00 81 23 131/75 (93) 100 11/26/19 02:00 82 15 132/71 (91) 100 11/26/19 01:07 80 21 100 11/26/19 01:00 82 20 122/70 (87) 100 11/26/19 00:00 99.4 80 16 125/70 (88) 100 11/26/19 00:00 Mechanical Ventilator 11/26/19 00:00 100 11/25/19 23:04 82 11/25/19 23:00 81 17 122/71 (88) 100 11/25/19 22:49 81 21 100 11/25/19 22:00 82 20 122/68 (86) 100 11/25/19 21:13 85 20 100 11/25/19 21:00 86 18 123/66 (85) 100 11/25/19 20:06 99.6 11/25/19 20:01 86 11/25/19 20:00 Mechanical Ventilator 11/25/19 20:00 100 11/25/19 20:00 100.0 85 20 124/72 (89) 100 11/25/19 19:01 82 20 100 11/25/19 19:00 82 20 105/62 (76) 100 11/25/19 18:00 86 19 119/67 (84) 100 11/25/19 17:00 87 21 119/71 (87) 100 11/25/19 16:34 86 20 100 11/25/19 16:00 Mechanical Ventilator 11/25/19 16:00 99.9 86 19 114/70 (85) 100 11/25/19 16:00 100 11/25/19 15:33 85 11/25/19 15:00 85 20 104/61 (75) 100 11/25/19 14:40 86 21 100 11/25/19 14:00 87 20 105/60 (75) 100 11/25/19 13:00 90 21 104/64 (77) 100 11/25/19 12:49 90 20 100 11/25/19 12:00 Mechanical Ventilator 11/25/19 12:00 100 11/25/19 12:00 90 11/25/19 12:00 99.4 90 22 106/66 (79) 100 11/25/19 11:30 91 22 106/68 (81) 100 Intake and Output 11/25/19 11/26/19 19:00 07:00 Intake Total 1590 ml 1929.17 ml Output Total 640 ml 235 ml Balance 950 ml 1694.17 ml Intake Free Water 30 ml 60 ml IV Total 1500 ml 1439.17 ml Tube Feeding 60 ml 430 ml Output Urine Total 540 ml 235 ml Gastric Drainage Total 100 ml # Bowel Movements 2 Laboratory Tests 11/26/19 03:00: Stool Occult Blood [Pending] 11/26/19 04:00: White Blood Count 10.1, Red Blood Count 2.65L, Hemoglobin 7.6L, Hematocrit 22.6L , Mean Corpuscular Volume 85, Mean Corpuscular Hemoglobin 28.9, Mean Corpuscular Hemoglobin Concent 33.8, Red Cell Distribution Width 14.4, Platelet Count 261, Mean Platelet Volume 5.5L, Neutrophils (%) (Auto) , Lymphocytes (%) ( Auto) , Monocytes (%) (Auto) , Eosinophils (%) (Auto) , Basophils (%) (Auto) , Neutrophils % (Manual) [Pending], Lymphocytes % (Manual) [Pending], Platelet Estimate [Pending], Platelet Morphology [Pending], Sodium Level 138, Potassium Level 4.5, Chloride Level 106, Carbon Dioxide Level 19L, Anion Gap 13, Blood Urea Nitrogen 92H, Creatinine 4.5H, Estimat Glomerular Filtration Rate 16.4, Glucose Level 184H, Calcium Level 8.6, Phosphorus Level 6.2H, Magnesium Level 1.4L, Total Bilirubin 0.7, Aspartate Amino Transf (AST/SGOT) 112H, Alanine Aminotransferase (ALT/SGPT) 69, Alkaline Phosphatase 83, Total Protein 6.5, Albumin 1.9L, Globulin 4.6, Albumin/Globulin Ratio 0.4L 11/26/19 09:35: Arterial Blood pH 7.344L, Arterial Blood Partial Pressure CO2 30.1L, Arterial Blood Partial Pressure O2 463.2H, Arterial Blood HCO3 16.0*L, Arterial Blood Oxygen Saturation 99.5, Arterial Blood Base Excess -8.7L, Garry Test Positive Height (Feet): 5 Height (Inches): 8.00 Weight (Pounds): 237 General Appearance: no apparent distress EENT: other - vented Cardiovascular: normal rate Respiratory/Chest: decreased breath sounds Abdomen: distended Tej Sidhu MD Nov 26, 2019 11:12
[2019-11-26] MEDS ORDERED: Hydrocortisone 100mg Inj IV SCH (14:00)
--- NOTE | 2019-11-26 15:05 | Diagnostic Imaging Report ---
EXAM: XR Chest, 1 View CLINICAL HISTORY: DYSPNEA TECHNIQUE: Frontal view of the chest. COMPARISON: Chest x-ray dated 11/25/19 FINDINGS: Lungs: Bilateral interstitial and alveolar opacities, however these appeared significantly improved compared to the prior chest x-ray. Pleural space: Unremarkable. The costophrenic angles are sharp. No visible pneumothorax. Heart: Unremarkable. No cardiomegaly. Mediastinum: Unremarkable. Bones/joints: Unremarkable. Tubes, lines and devices: Stable positioning of a right IJ central venous catheter and the endotracheal tube. Telemetry leads overlie the thorax. IMPRESSION: Bilateral interstitial and alveolar opacities, however these appeared significantly improved compared to the prior chest x-ray.
--- NOTE | 2019-11-26 15:40 | NUR ---
NURSE NOTES: Patient is resting comfortably in bed, denies pain any pain or discomfort. Will continue to monitor.
[2019-11-26] MEDS ORDERED: NS 275ml ONE (15:55)
[2019-11-26] MEDS ORDERED: Tubing IV Secondary IV ONE (15:55)
--- NOTE | 2019-11-26 17:22 | Cardiology Progress Note ---
Assessment/Plan Problem List: (1) Edema (2) Acute on chronic systolic heart failure (3) Acute respiratory failure (4) ARDS (adult respiratory distress syndrome) (5) History of hypertension (6) History of left below knee amputation Status: not improved, unchanged Status Narrative Respiratory failure - ARDS, ? component of CHF. Pt w/ LV systolic dysfunction, EF 40%. He is receiving IV fluids - 125 ccNS/hr. i/os ++ and peripheral edema. XR w/ bilat infilt c/w pulm edema - ? cardiogenic vs ARDS HTN CKD PVD/ S/p BKA Assessment/Plan Would continue treatment for pneumonia/ sepsis per primary team Continue supportive care - vent, TFs, abx Decrease IV fluids. Consider diuretics. Subjective ROS Limited/Unobtainable: Yes Subjective Cardiology for Dr. Byrd Pt intubated, but responsive. c/o feeling dyspneic on vent. Objective Last 24 Hour Vital Signs Date Time Temp Pulse Resp B/P (MAP) Pulse Ox O2 Delivery O2 Flow Rate FiO2 11/26/19 16:00 100 11/26/19 16:00 98.6 88 19 149/83 (105) 100 11/26/19 15:28 90 24 50 11/26/19 15:23 92 11/26/19 15:00 87 22 136/77 (96) 100 11/26/19 14:00 87 19 142/78 (99) 100 11/26/19 13:30 88 22 50 11/26/19 13:00 87 21 142/82 (102) 11/26/19 12:00 100 11/26/19 12:00 98.8 85 13 136/80 (98) 100 11/26/19 11:14 86 11/26/19 11:00 87 21 149/82 (104) 100 11/26/19 10:57 88 21 50 11/26/19 10:00 86 20 140/79 (99) 100 11/26/19 09:45 50 11/26/19 09:02 86 20 100 11/26/19 09:00 86 17 141/80 (100) 100 11/26/19 08:00 97.9 87 16 143/82 (102) 100 11/26/19 08:00 100 11/26/19 07:22 90 25 100 11/26/19 07:21 90 11/26/19 07:00 84 24 147/82 (103) 100 11/26/19 06:00 84 21 139/83 (101) 100 11/26/19 05:00 85 20 143/83 (103) 100 11/26/19 04:30 139/83 11/26/19 04:00 Mechanical Ventilator 11/26/19 04:00 100 11/26/19 04:00 97.2 85 20 144/75 (98) 100 11/26/19 04:00 81 11/26/19 03:00 81 23 131/75 (93) 100 11/26/19 02:00 82 15 132/71 (91) 100 11/26/19 01:07 80 21 100 11/26/19 01:00 82 20 122/70 (87) 100 11/26/19 00:00 99.4 80 16 125/70 (88) 100 11/26/19 00:00 Mechanical Ventilator 11/26/19 00:00 100 11/25/19 23:04 82 11/25/19 23:00 81 17 122/71 (88) 100 11/25/19 22:49 81 21 100 11/25/19 22:00 82 20 122/68 (86) 100 11/25/19 21:13 85 20 100 11/25/19 21:00 86 18 123/66 (85) 100 11/25/19 20:06 99.6 11/25/19 20:01 86 11/25/19 20:00 Mechanical Ventilator 11/25/19 20:00 100 11/25/19 20:00 100.0 85 20 124/72 (89) 100 11/25/19 19:01 82 20 100 11/25/19 19:00 82 20 105/62 (76) 100 11/25/19 18:00 86 19 119/67 (84) 100 General Appearance: alert, on vent EENT: PERRL/EOMI, other - ET tube , ng tube Neck: no JVD Rhythm: NSR Cardiovascular: normal rate, regular rhythm Respiratory/Chest: other - scattered rhonchi Abdomen: non tender, soft Extremities: other - L BKA R 2+ pitting edema feet- calf Intake and Output 11/25/19 11/26/19 19:00 07:00 Intake Total 1590 ml 1929.17 ml Output Total 640 ml 235 ml Balance 950 ml 1694.17 ml Intake Free Water 30 ml 60 ml IV Total 1500 ml 1439.17 ml Tube Feeding 60 ml 430 ml Output Urine Total 540 ml 235 ml Gastric Drainage Total 100 ml # Bowel Movements 2 Laboratory Tests Test 11/26/19 03:00 11/26/19 04:00 11/26/19 09:35 Stool Occult Blood Negative (NEGATIVE) White Blood Count 10.1 K/UL (4.8-10.8) Red Blood Count 2.65 M/UL (4.70-6.10) L Hemoglobin 7.6 G/DL (14.2-18.0) L Hematocrit 22.6 % (42.0-52.0) L Mean Corpuscular Volume 85 FL (80-99) Mean Corpuscular Hemoglobin 28.9 PG (27.0-31.0) Mean Corpuscular Hemoglobin Concent 33.8 G/DL (32.0-36.0) Red Cell Distribution Width 14.4 % (11.6-14.8) Platelet Count 261 K/UL (150-450) Mean Platelet Volume 5.5 FL (6.5-10.1) L Neutrophils (%) (Auto) % (45.0-75.0) Lymphocytes (%) (Auto) % (20.0-45.0) Monocytes (%) (Auto) % (1.0-10.0) Eosinophils (%) (Auto) % (0.0-3.0) Basophils (%) (Auto) % (0.0-2.0) Differential Total Cells Counted 100 Neutrophils % (Manual) 94 % (45-75) H Lymphocytes % (Manual) 4 % (20-45) L Monocytes % (Manual) 2 % (1-10) Eosinophils % (Manual) 0 % (0-3) Basophils % (Manual) 0 % (0-2) Band Neutrophils 0 % (0-8) Nucleated Red Blood Cells 1 /100 WBC Platelet Estimate Adequate Platelet Morphology Normal Hypochromasia 3+ Anisocytosis 1+ Spherocytes 1+ Sodium Level 138 MMOL/L (136-145) Potassium Level 4.5 MMOL/L (3.5-5.1) Chloride Level 106 MMOL/L (98-107) Carbon Dioxide Level 19 MMOL/L (21-32) L Anion Gap 13 mmol/L (5-15) Blood Urea Nitrogen 92 mg/dL (7-18) H Creatinine 4.5 MG/DL (0.55-1.30) H Estimat Glomerular Filtration Rate 16.4 mL/min (>60) Glucose Level 184 MG/DL (74-106) H Calcium Level 8.6 MG/DL (8.5-10.1) Phosphorus Level 6.2 MG/DL (2.5-4.9) H Magnesium Level 1.4 MG/DL (1.8-2.4) L Total Bilirubin 0.7 MG/DL (0.2-1.0) Aspartate Amino Transf (AST/SGOT) 112 U/L (15-37) H Alanine Aminotransferase (ALT/SGPT) 69 U/L (12-78) Alkaline Phosphatase 83 U/L (46-116) Total Protein 6.5 G/DL (6.4-8.2) Albumin 1.9 G/DL (3.4-5.0) L Globulin 4.6 g/dL Albumin/Globulin Ratio 0.4 (1.0-2.7) L Arterial Blood pH 7.344 (7.350-7.450) Arterial Blood Partial Pressure CO2 30.1 mmHg (35.0-45.0) L Arterial Blood Partial Pressure O2 463.2 mmHg (75.0-100.0) H Arterial Blood HCO3 16.0 mmol/L (22.0-26.0) *L Arterial Blood Oxygen Saturation 99.5 % (95-100) Arterial Blood Base Excess -8.7 (-2-2) L Garry Test Positive Microbiology Date/Time Source Procedure Growth Status 11/24/19 00:50 Blood Blood Culture - Preliminary NO GROWTH AFTER 24 HOURS Resulted 11/24/19 00:35 Blood Blood Culture - Preliminary NO GROWTH AFTER 24 HOURS Resulted 11/24/19 05:17 Nasal Nares MRSA Culture - Final NO METHICILLIN RESISTANT STAPH AUREUS... Complete 11/24/19 00:50 Nasal Nares - Final Complete 11/24/19 00:50 Nasal Nares - Final Complete 11/24/19 17:20 Urine,Clean Catch Urine Culture - Preliminary Resulted 11/24/19 05:17 Rectum VRE Culture - Final NO VANCOMYCIN RESISTANT ENTEROCOCCUS ... Complete 11/24/19 05:17 Rectum - Final NO CARBAPENEM-RESISTANT ENTEROBACTERI... Complete Deborah Gill MDb 15, 2020 17:22
--- NOTE | 2019-11-26 18:21 | Internal Med Progress Note ---
Subjective Date of Service: Nov 26, 2019 Physician Name Sidney Galaviz Attending Physician Cezar Ceja MD Current Medications Medications (Trade) Dose Ordered Sig/Valeriano Route PRN Reason Start Time Stop Time Status Last Admin Dose Admin Acetaminophen (Tylenol) 650 mg Q4H PRN ORAL FEVER 11/24/19 13:30 12/24/19 13:29 11/25/19 19:36 Albuterol/ Ipratropium (Albuterol/ Ipratropium) 3 ml Q4H PRN HHN Shortness of Breath 11/24/19 13:30 11/29/19 13:29 11/24/19 14:46 Cefepime HCl 2 gm/ Dextrose 110 ml @ 220 mls/hr Q24H IV 11/24/19 21:00 12/01/19 20:59 11/25/19 21:23 Chlorhexidine Gluconate (Katia-Hex 2%) 1 applic DAILY@2000 TOPIC 11/25/19 20:00 12/25/19 19:59 11/25/19 19:36 Dextrose (Dextrose 50%) 25 ml Q30M PRN IV Hypoglycemia 11/24/19 13:30 12/24/19 13:29 Dextrose (Dextrose 50%) 50 ml Q30M PRN IV Hypoglycemia 11/24/19 13:30 12/24/19 13:29 Fentanyl Citrate 2500 mcg/Sodium Chloride 250 ml @ 0 mls/hr Q24H IV 11/24/19 20:00 12/01/19 19:59 11/24/19 19:54 Folic Acid (Folate) 5 mg DAILY GT 11/27/19 09:00 12/27/19 08:59 Heparin Sodium (Porcine) (Heparin 5000 units/ml) 5,000 units EVERY 12 HOURS SUBQ 11/24/19 21:00 12/24/19 20:59 11/26/19 09:04 Insulin Aspart (NovoLOG) BEFORE MEALS AND HS SUBQ 11/24/19 16:30 12/24/19 16:29 11/26/19 16:45 Levofloxacin (Levaquin) 750 mg Q48H ORAL 11/25/19 13:00 12/02/19 12:59 11/25/19 13:29 Lorazepam (Ativan 2mg/ml 1ml) 2 mg Q4H PRN IV For Anxiety 11/24/19 15:15 12/01/19 15:14 11/26/19 07:30 Morphine Sulfate (Morphine Sulfate) 4 mg Q4H PRN IVP For Pain 11/24/19 15:15 12/01/19 15:14 Nitroglycerin (Ntg) 0.4 mg Q5M PRN SL Prn Chest Pain 11/24/19 09:30 12/24/19 09:29 11/24/19 09:23 Norepinephrine Bitartrate 8 mg/ Dextrose 500 ml @ 0 mls/hr Q24H IV 11/25/19 04:30 12/25/19 04:29 11/25/19 04:54 Ondansetron HCl (Zofran) 4 mg Q6H PRN IVP Nausea & Vomiting 11/24/19 13:30 12/24/19 13:29 Oseltamivir Phosphate (Tamiflu) 30 mg DAILY ORAL 11/25/19 13:00 11/30/19 12:59 11/26/19 09:03 Pantoprazole (Protonix) 40 mg Q12HR IV 11/25/19 21:00 12/25/19 08:59 11/26/19 09:03 Polyethylene Glycol (Miralax) 17 gm DAILYPRN PRN ORAL Constipation 11/24/19 13:30 12/24/19 13:29 Promethazine HCl/ Codeine (Phenergan with Codeine) 5 ml Q4H PRN ORAL For Cough 11/24/19 13:30 12/24/19 13:29 Sodium Chloride 1,000 ml @ 50 mls/hr Q20H IV 11/26/19 17:30 12/26/19 17:29 Vancomycin HCl (Vanco rx to dose) 1 ea DAILY PRN MISC . 11/24/19 13:30 12/24/19 13:29 Allergies: Coded Allergies: No Known Allergies (Unverified , 11/24/19) ROS Limited/Unobtainable: Yes Subjective 59 YO M admitted with respirtory failure. Cover for Int Qamar-Dr Ceja. Intubated and sedated. ICU. Objective Last Vital Signs Date Time Temp Pulse Resp B/P (MAP) Pulse Ox O2 Delivery O2 Flow Rate FiO2 11/26/19 17:27 90 21 50 11/26/19 17:00 147/82 (103) 100 11/26/19 16:00 98.6 11/26/19 04:00 Mechanical Ventilator 11/25/19 00:00 100.0 Laboratory Tests Test 11/26/19 03:00 11/26/19 04:00 11/26/19 09:35 Stool Occult Blood Negative (NEGATIVE) White Blood Count 10.1 K/UL (4.8-10.8) Red Blood Count 2.65 M/UL (4.70-6.10) L Hemoglobin 7.6 G/DL (14.2-18.0) L Hematocrit 22.6 % (42.0-52.0) L Mean Corpuscular Volume 85 FL (80-99) Mean Corpuscular Hemoglobin 28.9 PG (27.0-31.0) Mean Corpuscular Hemoglobin Concent 33.8 G/DL (32.0-36.0) Red Cell Distribution Width 14.4 % (11.6-14.8) Platelet Count 261 K/UL (150-450) Mean Platelet Volume 5.5 FL (6.5-10.1) L Neutrophils (%) (Auto) % (45.0-75.0) Lymphocytes (%) (Auto) % (20.0-45.0) Monocytes (%) (Auto) % (1.0-10.0) Eosinophils (%) (Auto) % (0.0-3.0) Basophils (%) (Auto) % (0.0-2.0) Differential Total Cells Counted 100 Neutrophils % (Manual) 94 % (45-75) H Lymphocytes % (Manual) 4 % (20-45) L Monocytes % (Manual) 2 % (1-10) Eosinophils % (Manual) 0 % (0-3) Basophils % (Manual) 0 % (0-2) Band Neutrophils 0 % (0-8) Nucleated Red Blood Cells 1 /100 WBC Platelet Estimate Adequate Platelet Morphology Normal Hypochromasia 3+ Anisocytosis 1+ Spherocytes 1+ Sodium Level 138 MMOL/L (136-145) Potassium Level 4.5 MMOL/L (3.5-5.1) Chloride Level 106 MMOL/L (98-107) Carbon Dioxide Level 19 MMOL/L (21-32) L Anion Gap 13 mmol/L (5-15) Blood Urea Nitrogen 92 mg/dL (7-18) H Creatinine 4.5 MG/DL (0.55-1.30) H Estimat Glomerular Filtration Rate 16.4 mL/min (>60) Glucose Level 184 MG/DL (74-106) H Calcium Level 8.6 MG/DL (8.5-10.1) Phosphorus Level 6.2 MG/DL (2.5-4.9) H Magnesium Level 1.4 MG/DL (1.8-2.4) L Total Bilirubin 0.7 MG/DL (0.2-1.0) Aspartate Amino Transf (AST/SGOT) 112 U/L (15-37) H Alanine Aminotransferase (ALT/SGPT) 69 U/L (12-78) Alkaline Phosphatase 83 U/L (46-116) Total Protein 6.5 G/DL (6.4-8.2) Albumin 1.9 G/DL (3.4-5.0) L Globulin 4.6 g/dL Albumin/Globulin Ratio 0.4 (1.0-2.7) L Arterial Blood pH 7.344 (7.350-7.450) Arterial Blood Partial Pressure CO2 30.1 mmHg (35.0-45.0) L Arterial Blood Partial Pressure O2 463.2 mmHg (75.0-100.0) H Arterial Blood HCO3 16.0 mmol/L (22.0-26.0) *L Arterial Blood Oxygen Saturation 99.5 % (95-100) Arterial Blood Base Excess -8.7 (-2-2) L Garry Test Positive Microbiology Date/Time Source Procedure Growth Status 11/24/19 00:50 Blood Blood Culture - Preliminary NO GROWTH AFTER 24 HOURS Resulted 11/24/19 00:35 Blood Blood Culture - Preliminary NO GROWTH AFTER 24 HOURS Resulted 11/24/19 05:17 Nasal Nares MRSA Culture - Final NO METHICILLIN RESISTANT STAPH AUREUS... Complete 11/24/19 00:50 Nasal Nares - Final Complete 11/24/19 00:50 Nasal Nares - Final Complete 11/24/19 17:20 Urine,Clean Catch Urine Culture - Preliminary Resulted 11/24/19 05:17 Rectum VRE Culture - Final NO VANCOMYCIN RESISTANT ENTEROCOCCUS ... Complete 11/24/19 05:17 Rectum - Final NO CARBAPENEM-RESISTANT ENTEROBACTERI... Complete Intake and Output 11/25/19 11/26/19 19:00 07:00 Intake Total 1590 ml 1929.17 ml Output Total 640 ml 235 ml Balance 950 ml 1694.17 ml Intake Free Water 30 ml 60 ml IV Total 1500 ml 1439.17 ml Tube Feeding 60 ml 430 ml Output Urine Total 540 ml 235 ml Gastric Drainage Total 100 ml # Bowel Movements 2 Objective PHYSICAL EXAMINATION: GENERAL: The patient is a well-developed and well-nourished male, in moderate respiratory distress. HEENT: Eyes, pupils are equal and responsive to light and accommodation. Extraocular movements are intact. NECK: Supple without lymphadenopathy. CHEST: Mechanical Vent; Mechanical breath sounds, otherwise without wheezes or rales. CARDIOVASCULAR: Regular rate. S1 and S2 normal without murmurs, rubs, or gallops. ABDOMEN: Soft, nontender, and nondistended. Positive bowel sounds. No evidence of hepatosplenomegaly. Currently, no rebound or guarding noted. EXTREMITIES: Negative for clubbing, cyanosis, or edema. RECTAL/GENITAL: Refused. NEUROLOGIC: Cranial nerves II through XII are grossly intact without focal deficits. Assessment/Plan Assessment/Plan ASSESSMENT: This is a 59-year-old male. 1. Respiratory failure. 2. Pneumonia. 3. Probable sepsis. 4. Diabetes type 2. 5. Hypertension. 6. Hypercholesterolemia. TREATMENT: 1. Respiratory failure/pneumonia. The patient is currently in intubated in the intensive care unit. A Pulmonary consultation has been obtained with Dr. Brandy Milton. ABX=vancomycin, levaquin and cefepime to cover healthcare-associated pneumonia. Continue tamaflu per ID=Dr Andrade. We will follow recommendations of Pulmonary. Sputum cultures are pending at this time. 2. Probable sepsis. Blood cultures are pending. As above, the patient has been placed empirically on vancomycin and cefepime. 3. Diabetes type 2. A NovoLog sliding scale has been instituted. 4. Hypertension. The patient is currently hypotensive. Hold antihypertensive medication. 5. Hypercholesterolemia. Continue atorvastatin as above. Sidney Galaviz MD Nov 26, 2019 18:21
--- NOTE | 2019-11-26 18:50 | NUR ---
NURSE NOTES: Bed bath given to patient, bowel movement noted. Will continue to monitor.
--- NOTE | 2019-11-26 19:30 | NUR ---
HAND-OFF: Report given to Sebas MIRZA.
--- NOTE | 2019-11-26 19:40 | NUR ---
NURSE NOTES: KEVON Jalloh RN. Patient is oriented to self, purposes and place. BP is 159/87, HR is 92 NSR, Spo2 is 100%, RR is 16. Patient is currently orally intubated ETT 7.5/23cm, AC 10, 600tv, 50% fio2 and peep of 10. Tolerating well on current ventilator settings. NAD at this time. Receiving Nepro at 40ml/hr via NGT. Cruz catheter noted. Peripheral IV lines noted and are intact, patent and asymptomatic. Patient also has right IJ TLC that is intact, patent and asymptomatic , dressing is also intact and clean. Receiving 1/2 NS at 50ml/hr.. Safety measures in place, call light within reach. Will continue to monitor.
[2019-11-26] MEDS: fentaNYL Citrate 2500mcg in NS 250ml IV SCH (20:00)
[2019-11-26] MEDS: Dyna-Hex 2% Top Sol 2oz TOPIC SCH (20:18)
[2019-11-26] MEDS: Cefepime HCl 2 GM in D5W 110 ML IV SCH (20:19)
--- NOTE | 2019-11-26 20:45 | NUR ---
NURSE NOTES: Patient ETT balloon was leaking and patient was not getting full tidal volume. ER MD was called and MD placed new ETT. Patient tolerated placement well. 20mg Etomidate and 100mg of Rocuronium was used. CXR was ordered for confirmation of placement.
--- NOTE | 2019-11-26 20:46 | NUR ---
RESPIRATORY NOTE:ER DR called to reintubate due to ETT tube not holding volume 7.5 ETT tube placed 21 @ LL apartment maintenance technician called for placement confermation
--- NOTE | 2019-11-26 20:55 | NUR ---
NURSE NOTES: Triage Register Nurse at bedside taking CXR. Patient still sedated, vitals remains stable.
--- NOTE | 2019-11-26 21:03 | Emergency Room Report ---
Physical Exam Vital Signs Date Time Temp Pulse Resp B/P (MAP) Pulse Ox O2 Delivery O2 Flow Rate FiO2 11/24/19 00:03 101.5 108 18 168/87 (114) 94 Nasal Cannula 4.0 11/24/19 09:30 100 Medical Decision Making Diagnostic Impression: Primary Impression: Sepsis Qualified Codes: A41.9 - Sepsis, unspecified organism; R65.20 - Severe sepsis without septic shock; J96.01 - Acute respiratory failure with hypoxia Additional Impressions: HCAP (healthcare-associated pneumonia) ARF (acute renal failure) Qualified Codes: N17.9 - Acute kidney failure, unspecified ARDS (adult respiratory distress syndrome) Anemia Qualified Codes: D64.9 - Anemia, unspecified Septic shock ACS (acute coronary syndrome) ER Course I was called to the ICU for intubation. The patient was already intubated though apparently the balloon had ruptured and the patient was desaturating. I found him saturating in the mid 80s, unsedated, mildly agitated. He was sedated with 20 mg of etomidate and 100 mg of rocuronium. A 7.5 endotracheal tube was exchanged for another 7.5 endotracheal tube secured at 21 cm. This was done under direct visualization. No complications. Confirmed placement by color change capnography, bilateral breath sounds, tube misting and improving oxygenation. Chest x-ray shows appropriate positioning of the endotracheal tube above the horace but it was just past the clavicles. Instructed to advance 3 cm and repeat chest x-ray. Further care per ICU team. Recall as needed Last Vital Signs Date Time Temp Pulse Resp B/P (MAP) Pulse Ox O2 Delivery O2 Flow Rate FiO2 11/26/19 19:00 93 21 149/85 (106) 100 11/26/19 18:52 50 11/26/19 16:00 98.6 11/26/19 04:00 Mechanical Ventilator 11/25/19 00:00 100.0 Disposition: ADMITTED INPATIENT Condition: Critical Referrals: NON PHYSICIAN (PCP) Procedures Intubation Intubation : Consent: Emergent Intubation Method: orotracheal Tube Size (cm): 7.5 Medications: Etomidate - 20 mg, Rocuronium - 100 mg Breath Sounds after Intubation: equal Intubation Complications: no complications Post Intubation Xray: Yes Progress/Xray Impression: Endotracheal tube in the trachea above the horace just past the clavicles. Attempts: One Patient Tolerated: Well Complications: None Nato,Brennen MD Nov 26, 2019 21:03
--- NOTE | 2019-11-26 21:44 | NUR ---
NURSE NOTES: ER MD called unit to advance ETT by 3cm, then CXR after.
--- NOTE | 2019-11-26 22:00 | NUR ---
NURSE NOTES: Patient still sedated from reintubation Vitals remains stable Patient receiving full tidal volumes Spo2 100% Repositioned
--- NOTE | 2019-11-26 22:02 | NUR ---
RESPIRATORY NOTE: ETT tube advanced 3cm per dr request 24@LL waiting for xray for placement conformation
--- NOTE | 2019-11-26 22:08 | Diagnostic Imaging Report ---
EXAM: XR Chest, 1 View CLINICAL HISTORY: TUBE PLCMT TECHNIQUE: Frontal view of the chest. COMPARISON: 11/26/19 at 0817 hrs. FINDINGS: ETT is high riding terminating near the level of the clavicular heads. Recommend more distal placement of approximately 2.5 cm. No change in position of right IJ line terminating distal to the caval atrial junction. Recommend consideration of retracting approximately 4 cm. NGT terminates in the very proximal stomach. Cardiac size is stable. Again noted bilateral reticular reticulonodular interstitial changes consistent with pulmonary vascular congestion and interstitial edema. Negative for pneumothorax or pleural fluid collections. <MYCVCSECTION> Communications: 11/26/19 22:19 Verify Receipt Verified receipt with financial reserve clerk Janet, given to Nurse Burnham on 11/26 22:19 (-08:00)
--- NOTE | 2019-11-26 23:06 | Diagnostic Imaging Report ---
EXAM: XR Chest, 1 View CLINICAL HISTORY: S/P INTUB TECHNIQUE: Frontal view of the chest. COMPARISON: 11/26/192121 hrs. FINDINGS: ETT has been repositioned and terminates in good position above the horace. NGT termination point not identified. Right IJ line is unchanged in position and likely distal to the caval atrial junction. No additional significant interval changes.
[2019-11-27] VITALS (27 sets, daily range): BP systolic 122–155; BP diastolic 62–86
--- NOTE | 2019-11-27 | NUR ---
NURSE NOTES: Patient repositioned Still lightly sedated Vitals remains stable Afebrile NAD Will continue to monitor.
--- NOTE | 2019-11-27 02:00 | NUR ---
NURSE NOTES: Repositioned VSS NAD Afebrile. No Feed residuals.
--- NOTE | 2019-11-27 04:00 | NUR ---
NURSE NOTES: Sponge bath given 1 Normal BM. Patient is awake and oriented Oral care given Blood collected and sent to lab.
[2019-11-27 04:47] LABS: HEMATOCRIT 24.7 % (42.0-52.0); HEMOGLOBIN 8.3 G/DL (14.2-18.0); MEAN CORPUSCULAR VOLUME 85 FL (80-99); PLATELET COUNT 329 K/UL (150-450); RED BLOOD COUNT 2.91 M/UL (4.70-6.10); RED CELL DISTRIBUTION WIDTH 14.7 % (11.6-14.8); WHITE BLOOD COUNT 16.2 K/UL (4.8-10.8)
[2019-11-27 05:16] LABS: ALANINE AMINOTRANSFERASE 99 U/L (12-78); ALBUMIN 2.1 G/DL (3.4-5.0); ALBUMIN/GLOBULIN RATIO 0.4 (1.0-2.7); ALKALINE PHOSPHATASE 106 U/L (46-116); ANION GAP 10 mmol/L (5-15); ASPARTATE AMINO TRANSFERASE 113 U/L (15-37); BILIRUBIN,TOTAL 0.5 MG/DL (0.2-1.0); BLOOD UREA NITROGEN 110 mg/dL (7-18); CALCIUM 8.6 MG/DL (8.5-10.1); CARBON DIOXIDE 17 MMOL/L (21-32); CHLORIDE 103 MMOL/L (98-107); CREATININE 5.2 MG/DL (0.55-1.30); SODIUM 130 MMOL/L (136-145)
[2019-11-27 05:23] LABS: PHOSPHORUS 6.5 MG/DL (2.5-4.9)
[2019-11-27] MEDS: NovoLOG Insulin Flexpen SUBQ SCH ×4 (05:39→21:00)
--- NOTE | 2019-11-27 06:12 | NUR ---
NURSE NOTES: Repositioned Oral care Vitals are stable patient is awake and oriented No distress at this time.
--- NOTE | 2019-11-27 07:00 | NUR ---
RESPIRATORY NOTES: Received patient on ACVC VT 600, RR 20, FIO2 35%, PEEP +10. Patient intubated with a 7.5 ETT at 24cm at the lip. Suctioned a moderate amount of thin white secretions through ETT. Patient alert and awake. Vent plugged into red outlet. Alarms are on and audible. Will continue to monitor throughout the day.
--- NOTE | 2019-11-27 07:10 | NUR ---
RESPIRATORY NOTES: Weaning passed. Placed Patient on CPAP PS +8 PEEP +10 FIO2 35%. RSBI 9.7, SPON RR 9, SPON VT 1040, VE 8.7, NIF -45. Will continue to monitor patient.
--- NOTE | 2019-11-27 07:32 | NUR ---
HAND-OFF: Report given to shreyas MIRZA.
--- NOTE | 2019-11-27 07:33 | NUR ---
NURSE NOTES: Late entry: PT and report received from YUKI Mullen; PT A/O x 3; can make needs known; received intubated ETT 7.5 @ 24 R-lip; AC 16; TV 600; 50%; peep 10; no S/S of respiratory distress noted; cafeteria monitor shows SR; PT has R-NGT infusing nepro at 40cc no residual noted, PT has quiñones intact draining, R-forearm 20g and R-IJ TLC infusing 1/2NS @ 50cc, will continue to monitor PT.
[2019-11-27] MEDS: Pantoprazole Inj IV SCH ×2 (09:40→20:40)
[2019-11-27] MEDS: Heparin 5000 units/ml inj SUBQ SCH ×2 (09:42→20:42)
--- NOTE | 2019-11-27 10:10 | NUR ---
RESPIRATORY NOTES: Weaning ended at 1010. Placed back onto ACVC.
[2019-11-27] MEDS ORDERED: 1/2 NS 1000ml IV ONE ×2 (10:23→10:30)
[2019-11-27] MEDS ORDERED: NS 275ml ONE (10:23)
[2019-11-27] MEDS ORDERED: Tubing IV Secondary IV ONE (10:30)
[2019-11-27] MEDS ORDERED: D5W 275ml ONE (10:30)
--- NOTE | 2019-11-27 10:38 | Nephrology Progress Note ---
Assessment/Plan Problem List: (1) ARF (acute renal failure) (2) Acute respiratory failure (3) Septic shock (4) Anemia (5) History of hypertension (6) Diabetes mellitus Assessment Acute renal failure- ? Underlying CKD Respiratory failure Anemia Sepsis / Shock ? Pneumonia DM HTN by history Gout left BKA Cardiomyopathy - Ej Fx 40% Plan Plan: HD today - ordered discussed with ICU zinc furnace charger DC Hydrocortisone Antibiotics urine studies avoid nephrotoxics monitor renal parameters Anemia hairston per orders Subjective ROS Limited/Unobtainable: Yes Objective Objective Last 24 Hour Vital Signs Date Time Temp Pulse Resp B/P (MAP) Pulse Ox O2 Delivery O2 Flow Rate FiO2 11/27/19 09:09 82 12 35 35 11/27/19 07:14 100 11/27/19 07:10 82 28 35 35 11/27/19 07:00 78 20 129/85 (100) 100 11/27/19 06:00 81 20 136/81 (99) 100 11/27/19 05:19 78 21 35 11/27/19 05:00 87 20 140/78 (98) 100 11/27/19 04:30 140/71 11/27/19 04:30 86 22 137/80 (99) 100 11/27/19 04:00 86 11/27/19 04:00 98.0 89 19 122/73 (89) 100 11/27/19 04:00 50 11/27/19 04:00 Mechanical Ventilator 11/27/19 03:18 91 22 50 11/27/19 03:00 90 19 145/84 (104) 100 11/27/19 02:30 95 22 155/81 (105) 100 11/27/19 02:00 93 21 144/77 (99) 100 11/27/19 01:30 95 21 140/71 (94) 100 11/27/19 01:00 97 21 149/79 (102) 100 11/27/19 00:00 96 11/27/19 00:00 50 11/27/19 00:00 98.5 96 22 151/79 (103) 100 11/27/19 00:00 Mechanical Ventilator 11/26/19 23:02 94 22 50 11/26/19 23:00 100 21 153/79 (103) 100 11/26/19 22:00 108 20 168/83 (111) 100 2/15/20 21:00 78 29 142/68 (92) 88 11/26/19 20:00 100 11/26/19 20:00 Mechanical Ventilator 11/26/19 20:00 109 11/26/19 20:00 99.0 106 24 142/67 (92) 76 11/26/19 19:00 93 21 149/85 (106) 100 11/26/19 18:52 91 21 50 11/26/19 18:00 89 18 150/80 (103) 100 11/26/19 17:27 90 21 50 11/26/19 17:00 90 23 147/82 (103) 100 11/26/19 16:00 100 11/26/19 16:00 98.6 88 19 149/83 (105) 100 11/26/19 15:28 90 24 50 11/26/19 15:23 92 11/26/19 15:00 87 22 136/77 (96) 100 11/26/19 14:00 87 19 142/78 (99) 100 11/26/19 13:30 88 22 50 11/26/19 13:00 87 21 142/82 (102) 11/26/19 12:00 100 11/26/19 12:00 98.8 85 13 136/80 (98) 100 11/26/19 11:14 86 11/26/19 11:00 87 21 149/82 (104) 100 11/26/19 10:57 88 21 50 Intake and Output 11/26/19 11/27/19 19:00 07:00 Intake Total 1315 ml 1190 ml Output Total 505 ml 295 ml Balance 810 ml 895 ml Intake Free Water 60 ml IV Total 775 ml 710 ml Tube Feeding 480 ml 480 ml Output Urine Total 505 ml 295 ml # Bowel Movements 1 Current Medications Medications (Trade) Dose Ordered Sig/Valeriano Route PRN Reason Start Time Stop Time Status Last Admin Dose Admin Acetaminophen (Tylenol) 650 mg Q4H PRN ORAL FEVER 11/24/19 13:30 12/24/19 13:29 11/25/19 19:36 Albuterol/ Ipratropium (Albuterol/ Ipratropium) 3 ml Q4H PRN HHN Shortness of Breath 11/24/19 13:30 11/29/19 13:29 11/24/19 14:46 Cefepime HCl 2 gm/ Dextrose 110 ml @ 220 mls/hr Q24H IV 11/24/19 21:00 12/01/19 20:59 11/26/19 20:19 Chlorhexidine Gluconate (Katia-Hex 2%) 1 applic DAILY@2000 TOPIC 11/25/19 20:00 12/25/19 19:59 11/26/19 20:18 Dextrose (Dextrose 50%) 25 ml Q30M PRN IV Hypoglycemia 11/24/19 13:30 12/24/19 13:29 Dextrose (Dextrose 50%) 50 ml Q30M PRN IV Hypoglycemia 11/24/19 13:30 12/24/19 13:29 Fentanyl Citrate 2500 mcg/Sodium Chloride 250 ml @ 0 mls/hr Q24H IV 11/24/19 20:00 12/01/19 19:59 11/24/19 19:54 Folic Acid (Folate) 5 mg DAILY GT 11/27/19 09:00 12/27/19 08:59 11/27/19 09:40 Heparin Sodium (Porcine) (Heparin 5000 units/ml) 5,000 units EVERY 12 HOURS SUBQ 11/24/19 21:00 12/24/19 20:59 11/27/19 09:42 Insulin Aspart (NovoLOG) BEFORE MEALS AND HS SUBQ 11/24/19 16:30 12/24/19 16:29 11/27/19 05:39 Levofloxacin (Levaquin) 500 mg Q48H ORAL 11/27/19 13:00 12/02/19 12:59 Lorazepam (Ativan 2mg/ml 1ml) 2 mg Q4H PRN IV For Anxiety 11/24/19 15:15 12/01/19 15:14 11/26/19 07:30 Morphine Sulfate (Morphine Sulfate) 4 mg Q4H PRN IVP For Pain 11/24/19 15:15 12/01/19 15:14 Nitroglycerin (Ntg) 0.4 mg Q5M PRN SL Prn Chest Pain 11/24/19 09:30 12/24/19 09:29 11/24/19 09:23 Norepinephrine Bitartrate 8 mg/ Dextrose 500 ml @ 0 mls/hr Q24H IV 11/25/19 04:30 12/25/19 04:29 11/25/19 04:54 Ondansetron HCl (Zofran) 4 mg Q6H PRN IVP Nausea & Vomiting 11/24/19 13:30 12/24/19 13:29 Oseltamivir Phosphate (Tamiflu) 30 mg DAILY ORAL 11/25/19 13:00 11/30/19 12:59 11/27/19 09:40 Pantoprazole (Protonix) 40 mg Q12HR IV 11/25/19 21:00 12/25/19 08:59 11/27/19 09:40 Polyethylene Glycol (Miralax) 17 gm DAILYPRN PRN ORAL Constipation 11/24/19 13:30 12/24/19 13:29 Promethazine HCl/ Codeine (Phenergan with Codeine) 5 ml Q4H PRN ORAL For Cough 11/24/19 13:30 12/24/19 13:29 Sodium Chloride 1,000 ml @ 50 mls/hr Q20H IV 11/26/19 17:30 12/26/19 17:29 11/26/19 18:28 Vancomycin HCl (Vanco rx to dose) 1 ea DAILY PRN MISC . 11/24/19 13:30 12/24/19 13:29 Vancomycin HCl 1 gm/Dextrose 275 ml @ 183.708 mls/hr ONCE ONCE IVPB 11/27/19 22:00 11/27/19 23:29 Laboratory Tests 11/27/19 04:08: White Blood Count 16.2#H, Red Blood Count 2.91L, Hemoglobin 8.3L, Hematocrit 24.7L, Mean Corpuscular Volume 85, Mean Corpuscular Hemoglobin 28.7, Mean Corpuscular Hemoglobin Concent 33.7, Red Cell Distribution Width 14.7, Platelet Count 329, Mean Platelet Volume 5.4L, Neutrophils (%) (Auto) , Lymphocytes (%) ( Auto) , Monocytes (%) (Auto) , Eosinophils (%) (Auto) , Basophils (%) (Auto) , Differential Total Cells Counted 100, Neutrophils % (Manual) 95H, Lymphocytes % (Manual) 4L, Monocytes % (Manual) 1, Eosinophils % (Manual) 0, Basophils % ( Manual) 0, Band Neutrophils 0, Nucleated Red Blood Cells 1, Platelet Estimate Adequate, Platelet Morphology Normal, Hypochromasia 2+, Anisocytosis 1+, Sodium Level 130L, Potassium Level 4.0, Chloride Level 103, Carbon Dioxide Level 17L, Anion Gap 10, Blood Urea Nitrogen 110H, Creatinine 5.2H, Estimat Glomerular Filtration Rate 13.9, Glucose Level 221H, Uric Acid 6.1, Calcium Level 8.6, Phosphorus Level 6.5H, Magnesium Level 2.3, Total Bilirubin 0.5, Aspartate Amino Transf (AST/SGOT) 113H, Alanine Aminotransferase (ALT/SGPT) 99H, Alkaline Phosphatase 106, Troponin I 0.442H, C-Reactive Protein, Quantitative 47.8H, Pro- B-Type Natriuretic Peptide > 33640J, Total Protein 7.1, Albumin 2.1L, Globulin 5.0, Albumin/Globulin Ratio 0.4L, Random Vancomycin Level 18.8 Height (Feet): 5 Height (Inches): 8.00 Weight (Pounds): 240 General Appearance: no apparent distress EENT: other - vented Cardiovascular: tachycardia Respiratory/Chest: decreased breath sounds Abdomen: distended Tej Sidhu MD Nov 27, 2019 10:38
--- NOTE | 2019-11-27 12:20 | NUR ---
NURSE NOTES: MD Ramo inserted R-femoral virgilio cath for dialysis access, no S/S of acute bleeding noted from site, dressing applied by MD; orders given to keep PT flat (supine) until dialysis. BILL Sommer made aware; PT feeding turned off for aspiration precaution. Will continue to monitor PT.
--- NOTE | 2019-11-27 12:44 | NUR ---
NURSE NOTES: Called [facility] to confirmed stat dialysis order for PT today, was told they will call back. BILL Sommer made aware.
--- NOTE | 2019-11-27 12:50 | Consultation ---
History of Present Illness General Date patient seen: Nov 27, 2019 Chief Complaint: Upper Respiratory Illness Present Illness HPI This is a 51-year-old male with past medical history of Dm2, Gout, s/p L BKA, allergic rhinitis, CAD s/p stent, prosthetic AVR, esophagitis, CKD, PVD, chronic sCHF, HLD, HTN, who is a SNF resident that [place] [facility] [place] with 6 days of worsening SOB, fever and productive cough. He required bipap initially but because of diminished respiratory effort patient was intubated and admitted to ICU. Patient became hypotensive, central line placed and started on Levophed. CXR showed pneumonia. Now worsening renal insufficiency requiring urgent dialysis surgery called to evaluate and assist with care and management. Patient seen, patient divided, chart reviewed. Patient awake and responsive. Able to follow simple commands. On vent support. Labs noted. Allergies: Coded Allergies: No Known Allergies (Unverified , 11/24/19) Medication History Scheduled Allopurinol* (Allopurinol*), 100 MG ORAL DAILY, (Reported) Amino Acids/Protein Hydrolys (Pro-Stat Liquid), 30 ML ORAL TWICE A DAY, ( Reported) Amlodipine Besylate* (Amlodipine Besylate*), 10 MG ORAL DAILY, (Reported) Ascorbic Acid* (Vitamin C*), 500 MG ORAL DAILY, (Reported) Atorvastatin Calcium* (Atorvastatin Calcium*), 80 MG ORAL BEDTIME, (Reported) Docusate Sodium* (Docusate Sodium*), 100 MG ORAL TWICE A DAY, (Reported) Fluticasone Propionate (Flonase Allergy Relief), 1 SPRAYS NS BID, (Reported) Levofloxacin* (Levaquin*), 500 MG ORAL DAILY, (Reported) Metoprolol Succinate* (Metoprolol Succinate*), 100 MG ORAL DAILY, (Reported) Multivitamin With Minerals (Multivitamins With Minerals*), 1 TAB ORAL DAILY, ( Reported) Mupirocin* (Mupirocin*), 1 APPLIC TOPIC DAILY, (Reported) Pantoprazole* (Protonix*), 40 MG ORAL DAILY, (Reported) Scheduled PRN Acetaminophen (Tylenol), 650 MG PO EVERY 4 HOURS PRN for For Pain, (Reported) Bisacodyl* (Dulcolax*), 10 MG ORAL ONCE PRN for Constipation, (Reported) D-Methorphan Hb/Prometh Hcl* (Promethazine-Dm Syrup*), 5 ML ORAL Q4H PRN for For Cough, (Reported) Furosemide* (Lasix*), 20 MG ORAL DAILY PRN for LEG SWELLING, (Reported) Hydrocodone Bit/Acetaminophen 5-325* ([place] 5-325*), 2 TAB ORAL Q6H PRN for For Pain, (Reported) Ipratropium/Albuterol Sulfate (DuoNeb 0.5-3(2.5)mg/3ml), 3 ML HHN EVERY 6 HOURS PRN for Shortness of breath, (Reported) Meloxicam* (Mobic*), 7.5 MG ORAL DAILY PRN for For Pain, (Reported) Miscellaneous Medications Insulin Lispro (Humalog), 0 SUBQ, (Reported) Patient History Limited by: medical condition History Provided By: Medical Record, PMD Healthcare decision maker Resuscitation status Full Code Advanced Directive on File Yes Past Medical/Surgical History Past Medical/Surgical History: (1) Acute respiratory failure (2) Edema (3) Acute on chronic systolic heart failure (4) ARDS (adult respiratory distress syndrome) (5) Septic shock (6) Anemia (7) ARF (acute renal failure) (8) Sepsis (9) ACS (acute coronary syndrome) (10) HCAP (healthcare-associated pneumonia) (11) History of gout (12) History of hypertension (13) Diabetes mellitus (14) prostetic heart valve (15) History of left below knee amputation (16) Chronic kidney disease, stage 3 (17) Chronic systolic heart failure Review of Systems ROS Narrative Cannot obtain given patient's current medical condition. What he can tell me by expressive noticed while intubated denies any symptoms that are discussed Physical Exam General Appearance: no apparent distress Lines, tubes and drains: central line, endotracheal tube Neck: other Respiratory/Chest: on vent Cardiovascular/Chest: tachycardia Abdomen: soft, no organomegaly, no mass Extremities: normal inspection, moderate edema Skin Exam: warm/dry Neurologic: alert, responsive Last 24 Hour Vital Signs Date Time Temp Pulse Resp B/P (MAP) Pulse Ox O2 Delivery O2 Flow Rate FiO2 11/27/19 12:00 35 11/27/19 12:00 97.8 85 21 137/70 (92) 100 11/27/19 12:00 Mechanical Ventilator 11/27/19 11:29 84 24 35 35 11/27/19 11:00 82 20 131/62 (85) 100 11/27/19 11:00 35 11/27/19 10:00 83 14 135/81 (99) 96 11/27/19 09:09 82 12 35 35 11/27/19 09:00 83 11 132/71 (91) 98 11/27/19 08:00 35 11/27/19 08:00 81 11/27/19 08:00 97.7 82 12 139/82 (101) 98 11/27/19 08:00 Mechanical Ventilator 11/27/19 07:14 100 11/27/19 07:10 82 28 35 35 11/27/19 07:00 78 20 129/85 (100) 100 11/27/19 06:00 81 20 136/81 (99) 100 11/27/19 05:19 78 21 35 11/27/19 05:00 87 20 140/78 (98) 100 11/27/19 04:30 140/71 11/27/19 04:30 86 22 137/80 (99) 100 11/27/19 04:00 86 11/27/19 04:00 98.0 89 19 122/73 (89) 100 11/27/19 04:00 50 11/27/19 04:00 Mechanical Ventilator 11/27/19 03:18 91 22 50 11/27/19 03:00 90 19 145/84 (104) 100 11/27/19 02:30 95 22 155/81 (105) 100 11/27/19 02:00 93 21 144/77 (99) 100 11/27/19 01:30 95 21 140/71 (94) 100 11/27/19 01:00 97 21 149/79 (102) 100 11/27/19 00:00 96 11/27/19 00:00 50 11/27/19 00:00 98.5 96 22 151/79 (103) 100 11/27/19 00:00 Mechanical Ventilator 11/26/19 23:02 94 22 50 11/26/19 23:00 100 21 153/79 (103) 100 11/26/19 22:00 108 20 168/83 (111) 100 11/26/19 21:00 78 29 142/68 (92) 88 11/26/19 20:00 100 11/26/19 20:00 Mechanical Ventilator 11/26/19 20:00 109 11/26/19 20:00 99.0 106 24 142/67 (92) 76 11/26/19 19:00 93 21 149/85 (106) 100 11/26/19 18:52 91 21 50 11/26/19 18:00 89 18 150/80 (103) 100 11/26/19 17:27 90 21 50 11/26/19 17:00 90 23 147/82 (103) 100 11/26/19 16:00 100 11/26/19 16:00 98.6 88 19 149/83 (105) 100 11/26/19 15:28 90 24 50 11/26/19 15:23 92 11/26/19 15:00 87 22 136/77 (96) 100 11/26/19 14:00 87 19 142/78 (99) 100 11/26/19 13:30 88 22 50 11/26/19 13:00 87 21 142/82 (102) Intake and Output 11/26/19 11/27/19 19:00 07:00 Intake Total 1315 ml 1190 ml Output Total 505 ml 295 ml Balance 810 ml 895 ml Intake Free Water 60 ml IV Total 775 ml 710 ml Tube Feeding 480 ml 480 ml Output Urine Total 505 ml 295 ml # Bowel Movements 1 Laboratory Tests Test 11/27/19 04:08 White Blood Count 16.2 K/UL (4.8-10.8) #H Red Blood Count 2.91 M/UL (4.70-6.10) L Hemoglobin 8.3 G/DL (14.2-18.0) L Hematocrit 24.7 % (42.0-52.0) L Mean Corpuscular Volume 85 FL (80-99) Mean Corpuscular Hemoglobin 28.7 PG (27.0-31.0) Mean Corpuscular Hemoglobin Concent 33.7 G/DL (32.0-36.0) Red Cell Distribution Width 14.7 % (11.6-14.8) Platelet Count 329 K/UL (150-450) Mean Platelet Volume 5.4 FL (6.5-10.1) L Neutrophils (%) (Auto) % (45.0-75.0) Lymphocytes (%) (Auto) % (20.0-45.0) Monocytes (%) (Auto) % (1.0-10.0) Eosinophils (%) (Auto) % (0.0-3.0) Basophils (%) (Auto) % (0.0-2.0) Differential Total Cells Counted 100 Neutrophils % (Manual) 95 % (45-75) H Lymphocytes % (Manual) 4 % (20-45) L Monocytes % (Manual) 1 % (1-10) Eosinophils % (Manual) 0 % (0-3) Basophils % (Manual) 0 % (0-2) Band Neutrophils 0 % (0-8) Nucleated Red Blood Cells 1 /100 WBC Platelet Estimate Adequate Platelet Morphology Normal Hypochromasia 2+ Anisocytosis 1+ Sodium Level 130 MMOL/L (136-145) L Potassium Level 4.0 MMOL/L (3.5-5.1) Chloride Level 103 MMOL/L (98-107) Carbon Dioxide Level 17 MMOL/L (21-32) L Anion Gap 10 mmol/L (5-15) Blood Urea Nitrogen 110 mg/dL (7-18) H Creatinine 5.2 MG/DL (0.55-1.30) H Estimat Glomerular Filtration Rate 13.9 mL/min (>60) Glucose Level 221 MG/DL (74-106) H Uric Acid 6.1 MG/DL (2.6-7.2) Calcium Level 8.6 MG/DL (8.5-10.1) Phosphorus Level 6.5 MG/DL (2.5-4.9) H Magnesium Level 2.3 MG/DL (1.8-2.4) Total Bilirubin 0.5 MG/DL (0.2-1.0) Aspartate Amino Transf (AST/SGOT) 113 U/L (15-37) H Alanine Aminotransferase (ALT/SGPT) 99 U/L (12-78) H Alkaline Phosphatase 106 U/L (46-116) Troponin I 0.442 ng/mL (0.000-0.056) C-Reactive Protein, Quantitative 47.8 mg/dL (0.00-0.90) H Pro-B-Type Natriuretic Peptide > 12655 pg/mL (0-125) H Total Protein 7.1 G/DL (6.4-8.2) Albumin 2.1 G/DL (3.4-5.0) L Globulin 5.0 g/dL Albumin/Globulin Ratio 0.4 (1.0-2.7) L Random Vancomycin Level 18.8 ug/mL Height (Feet): 5 Height (Inches): 8.00 Weight (Pounds): 240 Medications Current Medications Medications (Trade) Dose Ordered Sig/Valeriano Route PRN Reason Start Time Stop Time Status Last Admin Dose Admin Acetaminophen (Tylenol) 650 mg Q4H PRN ORAL FEVER 11/24/19 13:30 12/24/19 13:29 11/25/19 19:36 Albuterol/ Ipratropium (Albuterol/ Ipratropium) 3 ml Q4H PRN HHN Shortness of Breath 11/24/19 13:30 11/29/19 13:29 11/24/19 14:46 Cefepime HCl 2 gm/ Dextrose 110 ml @ 220 mls/hr Q24H IV 11/24/19 21:00 12/01/19 20:59 11/26/19 20:19 Chlorhexidine Gluconate (Katia-Hex 2%) 1 applic DAILY@2000 TOPIC 11/25/19 20:00 12/25/19 19:59 11/26/19 20:18 Dextrose (Dextrose 50%) 25 ml Q30M PRN IV Hypoglycemia 11/24/19 13:30 12/24/19 13:29 Dextrose (Dextrose 50%) 50 ml Q30M PRN IV Hypoglycemia 11/24/19 13:30 12/24/19 13:29 Fentanyl Citrate 2500 mcg/Sodium Chloride 250 ml @ 0 mls/hr Q24H IV 11/24/19 20:00 12/01/19 19:59 11/24/19 19:54 Folic Acid (Folate) 5 mg DAILY GT 11/27/19 09:00 12/27/19 08:59 11/27/19 09:40 Heparin Sodium (Porcine) (Heparin 5000 units/ml) 5,000 units EVERY 12 HOURS SUBQ 11/24/19 21:00 12/24/19 20:59 11/27/19 09:42 Insulin Aspart (NovoLOG) BEFORE MEALS AND HS SUBQ 11/24/19 16:30 12/24/19 16:29 11/27/19 05:39 Levofloxacin (Levaquin) 500 mg Q48H ORAL 11/27/19 13:00 12/02/19 12:59 Lidocaine HCl (Xylocaine 1% 30ml) 30 ml ONCE ONCE INJ 11/27/19 13:00 11/27/19 13:01 Lorazepam (Ativan 2mg/ml 1ml) 2 mg Q4H PRN IV For Anxiety 11/24/19 15:15 12/01/19 15:14 11/26/19 07:30 Morphine Sulfate (Morphine Sulfate) 4 mg Q4H PRN IVP For Pain 11/24/19 15:15 12/01/19 15:14 Nitroglycerin (Ntg) 0.4 mg Q5M PRN SL Prn Chest Pain 11/24/19 09:30 12/24/19 09:29 11/24/19 09:23 Norepinephrine Bitartrate 8 mg/ Dextrose 500 ml @ 0 mls/hr Q24H IV 11/25/19 04:30 12/25/19 04:29 11/25/19 04:54 Ondansetron HCl (Zofran) 4 mg Q6H PRN IVP Nausea & Vomiting 11/24/19 13:30 12/24/19 13:29 Oseltamivir Phosphate (Tamiflu) 30 mg DAILY ORAL 11/25/19 13:00 11/30/19 12:59 11/27/19 09:40 Pantoprazole (Protonix) 40 mg Q12HR IV 11/25/19 21:00 12/25/19 08:59 11/27/19 09:40 Polyethylene Glycol (Miralax) 17 gm DAILYPRN PRN ORAL Constipation 11/24/19 13:30 12/24/19 13:29 Promethazine HCl/ Codeine (Phenergan with Codeine) 5 ml Q4H PRN ORAL For Cough 11/24/19 13:30 12/24/19 13:29 Sodium Chloride 1,000 ml @ 50 mls/hr Q20H IV 11/26/19 17:30 12/26/19 17:29 11/26/19 18:28 Vancomycin HCl (Vanco rx to dose) 1 ea DAILY PRN MISC . 11/24/19 13:30 12/24/19 13:29 Vancomycin HCl 1 gm/Dextrose 275 ml @ 183.708 mls/hr ONCE ONCE IVPB 11/27/19 22:00 11/27/19 23:29 Assessment/Plan Problem List: (1) Septic shock Assessment & Plan: Patient in septic shock prior central line and pressors intubated on vent support in the intensive care unit tachycardic. Renal insufficiency requiring hemodialysis. Temporary hemodialysis catheter indicated and recommended Please see procedure note Dialysis as per nephrology IV antibiotics post per infectious disease Dressing changes as per protocol We will monitor site for hematoma or infection No further acute surgical intervention recommended at this time will follow with recommendations thank you for let me participate patient's care ICD Codes: A41.9 - Sepsis, unspecified organism; R65.21 - Severe sepsis with septic shock SNOMED: 51653856, 44591214 (2) Acute respiratory failure Assessment & Plan: DAILY ESTIMATED NEEDS: Needs based on Critical care, sepsis 75kg adj 22-28 kcals/kg 8728-1422 total kcals 1.2-2 g protein/kg 90-150 g total protein 25-30 mL/kg 5017-1309 total fluid mLs NUTRITION DIAGNOSIS: Swallowing difficulty r/t resp status as evidenced by septic shock now s/p intubation, w/ NGT, NPO at this time. ENTERAL NUTRITION RECOMMENDATIONS: Nepro @40ml/hr x24 hrs + Prosource BID to provide 960ml, 78g + 22 g pro, 698ml free H2O - As medically appropriate, rec non oral feeds via NGT - Start Nepro @20ml/hr for 6 hrs. Advance as tolerated 10ml/hr q4-6 hrs to goal. - Add Prosource BID to better meet est pro needs - Flush per . HOB over 30 degrees -------- ADDITIONAL RECOMMENDATIONS: 1) Tf recs as above, feed as medically able 2) Ad PROSOURCE VIA NGT BID to better meet est pro needs 3) Per SNF: 69inches tall, last wt of 210 lbs (2/3) -> rec weekly calibrated bed scale wts 4) SHORTS SIFTER eval upon extubation ICD Codes: J96.00 - Acute respiratory failure, unspecified whether with hypoxia or hypercapnia SNOMED: 20515958 (3) Sepsis ICD Codes: A41.9 - Sepsis, unspecified organism SNOMED: 39649316, 347486482 Qualifiers: Qualified Codes: A41.9 - Sepsis, unspecified organism; R65.20 - Severe sepsis without septic shock; J96.01 - Acute respiratory failure with hypoxia (4) History of left below knee amputation Assessment & Plan: Wound stable dressings intact elevate with pillow ICD Codes: Z89.512 - Acquired absence of left leg below knee SNOMED: 446142636, [id number] Ranjit Ralph Nov 27, 2019 12:50
--- NOTE | 2019-11-27 12:52 | Operative Note - PDOC ---
Operative Note Operative Note Date of Operation/Procedure: Nov 27, 2019 Pre-op Diagnosis: Sepsis, acute renal insufficiency requiring temporary hemodialysis Procedure: Right femoral temporary hemodialysis catheter insertion Post-op Diagnosis: same as pre-op Surgeon: Ranjit Ralph MD Anesthesia: local - Lidocaine 1% with epinephrine Specimen: none Complications: none Condition: stable Fluids: See records Estimated Blood Loss: minimal Drains: none Implant(s) used?: No Indications for Procedure This is a 59-year-old male in septic shock in the intensive care unit intubated on support who is going to renal insufficiency requiring hemodialysis. Patient does not have access requires debridement's access. Procedure indicated recommended. Consent obtained from patient's daughter Description of Procedure Patient was made comfortable at the bedside. Procedure explained to him and he seemed to have understanding though given intubated and current illness and critical condition and consent was obtained from the next of kin. The right groin was prepped draped in the same surgical fashion. Local anesthetic was infiltrated in proposed insertion site. The anatomic landmarks were identified and the femoral artery was palpated. The femoral vein was cannulated without complication and good venous flow was identified. Guidewire was placed over needle needle removed. Small skin incision was made around the guidewire and the dilators were used and tract was dilated. A temporary hemodialysis catheter was inserted over the guidewire and guidewire removed and discarded. The ports generously flushed and aspirated without complication. Lines were flushed and caps were placed. Line was sutured in place. Dressings were applied. Patient taught procedure well. Okay to use line for dialysis CHANO Ranjit Ralph Nov 27, 2019 12:52
[2019-11-27] MEDS ORDERED: Lidocaine 1% Plain 30 ml INJ ONE (13:00)
--- NOTE | 2019-11-27 13:26 | NUR ---
NURSE NOTES: Called MD Rachelle left message with messaging service in regards to PT elevated WBC from yesterday; message left for call back if any orders will be given.
[2019-11-27] MEDS: Levofloxacin 500mg tab ORAL SCH (13:36)
--- NOTE | 2019-11-27 13:51 | NUR ---
NURSE NOTES: MD Kenny called, orders given to draw 2x blood culture. Will place orders on behalf of .
--- NOTE | 2019-11-27 14:22 | NUR ---
NURSE NOTES: Dialysis Nurse at bedside, advised her informed consent was given by PT daughter, consent placed in the PT charts.
--- NOTE | 2019-11-27 16:54 | Internal Med Progress Note ---
Subjective Date of Service: Nov 27, 2019 Physician Name Sidney Galaviz Attending Physician Cezar Ceja MD Current Medications Medications (Trade) Dose Ordered Sig/Valeriano Route PRN Reason Start Time Stop Time Status Last Admin Dose Admin Acetaminophen (Tylenol) 650 mg Q4H PRN ORAL FEVER 11/24/19 13:30 12/24/19 13:29 11/25/19 19:36 Albuterol/ Ipratropium (Albuterol/ Ipratropium) 3 ml Q4H PRN HHN Shortness of Breath 11/24/19 13:30 11/29/19 13:29 11/24/19 14:46 Cefepime HCl 2 gm/ Dextrose 110 ml @ 220 mls/hr Q24H IV 11/24/19 21:00 12/01/19 20:59 11/26/19 20:19 Chlorhexidine Gluconate (Katia-Hex 2%) 1 applic DAILY@2000 TOPIC 11/25/19 20:00 12/25/19 19:59 11/26/19 20:18 Dextrose (Dextrose 50%) 25 ml Q30M PRN IV Hypoglycemia 11/24/19 13:30 12/24/19 13:29 Dextrose (Dextrose 50%) 50 ml Q30M PRN IV Hypoglycemia 11/24/19 13:30 12/24/19 13:29 Fentanyl Citrate 2500 mcg/Sodium Chloride 250 ml @ 0 mls/hr Q24H IV 11/24/19 20:00 12/01/19 19:59 11/24/19 19:54 Folic Acid (Folate) 5 mg DAILY GT 11/27/19 09:00 12/27/19 08:59 11/27/19 09:40 Heparin Sodium (Porcine) (Heparin 5000 units/ml) 5,000 units EVERY 12 HOURS SUBQ 11/24/19 21:00 12/24/19 20:59 11/27/19 09:42 Insulin Aspart (NovoLOG) BEFORE MEALS AND HS SUBQ 11/24/19 16:30 12/24/19 16:29 11/27/19 13:40 Levofloxacin (Levaquin) 500 mg Q48H ORAL 11/27/19 13:00 12/02/19 12:59 11/27/19 13:36 Lorazepam (Ativan 2mg/ml 1ml) 2 mg Q4H PRN IV For Anxiety 11/24/19 15:15 12/01/19 15:14 11/26/19 07:30 Morphine Sulfate (Morphine Sulfate) 4 mg Q4H PRN IVP For Pain 11/24/19 15:15 12/01/19 15:14 Nitroglycerin (Ntg) 0.4 mg Q5M PRN SL Prn Chest Pain 11/24/19 09:30 12/24/19 09:29 11/24/19 09:23 Norepinephrine Bitartrate 8 mg/ Dextrose 500 ml @ 0 mls/hr Q24H IV 11/25/19 04:30 12/25/19 04:29 11/25/19 04:54 Ondansetron HCl (Zofran) 4 mg Q6H PRN IVP Nausea & Vomiting 11/24/19 13:30 12/24/19 13:29 Oseltamivir Phosphate (Tamiflu) 30 mg DAILY ORAL 11/25/19 13:00 11/30/19 12:59 11/27/19 09:40 Pantoprazole (Protonix) 40 mg Q12HR IV 11/25/19 21:00 12/25/19 08:59 11/27/19 09:40 Polyethylene Glycol (Miralax) 17 gm DAILYPRN PRN ORAL Constipation 11/24/19 13:30 12/24/19 13:29 Promethazine HCl/ Codeine (Phenergan with Codeine) 5 ml Q4H PRN ORAL For Cough 11/24/19 13:30 12/24/19 13:29 Sodium Chloride 1,000 ml @ 50 mls/hr Q20H IV 11/26/19 17:30 12/26/19 17:29 11/27/19 13:42 Vancomycin HCl (Vanco rx to dose) 1 ea DAILY PRN MISC . 11/24/19 13:30 12/24/19 13:29 Vancomycin HCl 1 gm/Dextrose 275 ml @ 183.708 mls/hr ONCE ONCE IVPB 11/27/19 22:00 11/27/19 23:29 Allergies: Coded Allergies: No Known Allergies (Unverified , 11/24/19) ROS Limited/Unobtainable: Yes Subjective 59 YO M admitted with respirtory failure. Cover for Int Qamar-Dr Ceja. Intubated and sedated. ICU. Objective Last Vital Signs Date Time Temp Pulse Resp B/P (MAP) Pulse Ox O2 Delivery O2 Flow Rate FiO2 11/27/19 15:22 98 28 35 11/27/19 15:00 143/80 (101) 100 11/27/19 12:00 97.8 11/27/19 12:00 Mechanical Ventilator 11/25/19 00:00 100.0 Laboratory Tests Test 11/27/19 04:08 11/27/19 09:38 11/27/19 14:40 White Blood Count 16.2 K/UL (4.8-10.8) #H Red Blood Count 2.91 M/UL (4.70-6.10) L Hemoglobin 8.3 G/DL (14.2-18.0) L Hematocrit 24.7 % (42.0-52.0) L Mean Corpuscular Volume 85 FL (80-99) Mean Corpuscular Hemoglobin 28.7 PG (27.0-31.0) Mean Corpuscular Hemoglobin Concent 33.7 G/DL (32.0-36.0) Red Cell Distribution Width 14.7 % (11.6-14.8) Platelet Count 329 K/UL (150-450) Mean Platelet Volume 5.4 FL (6.5-10.1) L Neutrophils (%) (Auto) % (45.0-75.0) Lymphocytes (%) (Auto) % (20.0-45.0) Monocytes (%) (Auto) % (1.0-10.0) Eosinophils (%) (Auto) % (0.0-3.0) Basophils (%) (Auto) % (0.0-2.0) Differential Total Cells Counted 100 Neutrophils % (Manual) 95 % (45-75) H Lymphocytes % (Manual) 4 % (20-45) L Monocytes % (Manual) 1 % (1-10) Eosinophils % (Manual) 0 % (0-3) Basophils % (Manual) 0 % (0-2) Band Neutrophils 0 % (0-8) Nucleated Red Blood Cells 1 /100 WBC Platelet Estimate Adequate Platelet Morphology Normal Hypochromasia 2+ Anisocytosis 1+ Sodium Level 130 MMOL/L (136-145) L Potassium Level 4.0 MMOL/L (3.5-5.1) Chloride Level 103 MMOL/L (98-107) Carbon Dioxide Level 17 MMOL/L (21-32) L Anion Gap 10 mmol/L (5-15) Blood Urea Nitrogen 110 mg/dL (7-18) H Creatinine 5.2 MG/DL (0.55-1.30) H Estimat Glomerular Filtration Rate 13.9 mL/min (>60) Glucose Level 221 MG/DL (74-106) H Uric Acid 6.1 MG/DL (2.6-7.2) Calcium Level 8.6 MG/DL (8.5-10.1) Phosphorus Level 6.5 MG/DL (2.5-4.9) H Magnesium Level 2.3 MG/DL (1.8-2.4) Total Bilirubin 0.5 MG/DL (0.2-1.0) Aspartate Amino Transf (AST/SGOT) 113 U/L (15-37) H Alanine Aminotransferase (ALT/SGPT) 99 U/L (12-78) H Alkaline Phosphatase 106 U/L (46-116) Troponin I 0.442 ng/mL (0.000-0.056) C-Reactive Protein, Quantitative 47.8 mg/dL (0.00-0.90) H Pro-B-Type Natriuretic Peptide > 13603 pg/mL (0-125) H Total Protein 7.1 G/DL (6.4-8.2) Albumin 2.1 G/DL (3.4-5.0) L Globulin 5.0 g/dL Albumin/Globulin Ratio 0.4 (1.0-2.7) L Random Vancomycin Level 18.8 ug/mL Arterial Blood pH 7.275 (7.350-7.450) Arterial Blood Partial Pressure CO2 32.8 mmHg (35.0-45.0) L Arterial Blood Partial Pressure O2 106.4 mmHg (75.0-100.0) H Arterial Blood HCO3 14.9 mmol/L (22.0-26.0) *L Arterial Blood Oxygen Saturation 96.7 % (95-100) Arterial Blood Base Excess -10.9 (-2-2) *L Garry Test Positive Hepatitis B Surface Antigen Pending Microbiology Date/Time Source Procedure Growth Status 11/24/19 17:20 Urine,Clean Catch Urine Culture - Final NO GROWTH AFTER 48 HOURS Complete Intake and Output 11/26/19 11/27/19 19:00 07:00 Intake Total 1315 ml 1190 ml Output Total 505 ml 295 ml Balance 810 ml 895 ml Intake Free Water 60 ml IV Total 775 ml 710 ml Tube Feeding 480 ml 480 ml Output Urine Total 505 ml 295 ml # Bowel Movements 1 Objective PHYSICAL EXAMINATION: GENERAL: The patient is a well-developed and well-nourished male, in moderate respiratory distress. HEENT: Eyes, pupils are equal and responsive to light and accommodation. Extraocular movements are intact. NECK: Supple without lymphadenopathy. CHEST: Mechanical Vent; Mechanical breath sounds, otherwise without wheezes or rales. CARDIOVASCULAR: Regular rate. S1 and S2 normal without murmurs, rubs, or gallops. ABDOMEN: Soft, nontender, and nondistended. Positive bowel sounds. No evidence of hepatosplenomegaly. Currently, no rebound or guarding noted. EXTREMITIES: Negative for clubbing, cyanosis, or edema. RECTAL/GENITAL: Refused. NEUROLOGIC: Cranial nerves II through XII are grossly intact without focal deficits. Assessment/Plan Assessment/Plan ASSESSMENT: This is a 59-year-old male. 1. Respiratory failure. 2. Pneumonia. 3. Probable sepsis. 4. Diabetes type 2. 5. Hypertension. 6. Hypercholesterolemia. TREATMENT: 1. Respiratory failure/pneumonia. The patient is currently in intubated in the intensive care unit. A Pulmonary consultation has been obtained with Dr. Brandy Milton. ABX=vancomycin, levaquin and cefepime to cover healthcare-associated pneumonia. Continue tamaflu per ID=Dr Andrade. We will follow recommendations of Pulmonary. Sputum cultures are pending at this time. 2. Probable sepsis. Blood cultures are pending. As above, the patient has been placed empirically on vancomycin and cefepime. 3. Diabetes type 2. A NovoLog sliding scale has been instituted. 4. Hypertension. The patient is currently hypotensive. Hold antihypertensive medication. 5. Hypercholesterolemia. Continue atorvastatin as above. Sidney Galaviz MD Nov 27, 2019 16:54
[2019-11-27] MEDS: LORazepam Inj 2mg/ml 1ml IV PRN (18:03)
--- NOTE | 2019-11-27 18:48 | NUR ---
NURSE NOTES: Completed linens changed, no BM; wiped, cleaned, dried PT; edema noted on R-side; PT remains on bilateral wrist restraints for safety measures, tolerated HD well; VS stable, PT was anxious so administered PRN ativan. Thanh called, updates given, will continue to monitor PT.
--- NOTE | 2019-11-27 19:30 | NUR ---
NURSE NOTES: Received report from YUKI Bolden; Patient in bed awake,alert able to make needs known to staff. patient orally intubated ETT 7.5/24cm AC 16, TV 600, Fi02 50%; peep 10. No S/S of respiratory distress noted. ST on special education assistant HR 104. NGT infusing Nepro at 40cc no residual noted, PT has Cruz intact draining, R forearm 20g and R IJ TLC infusing 1/2NS @ 50cc. Bilateral soft wrist restraint checked. Bed alarm on. bed locked and in low position. No s/s of hypo/hyperglycemia. will continue plan of care.
--- NOTE | 2019-11-27 19:31 | NUR ---
HAND-OFF: Report and PT given to YUKI Braden.
[2019-11-27] MEDS: fentaNYL Citrate 2500mcg in NS 250ml IV SCH (20:00)
--- NOTE | 2019-11-27 20:35 | NUR ---
NURSE NOTES: Patient girlfriend at bedside. Addendum: 11/28/19 at 0717 by ERIKA GOODSON RN noted patient with sacral ps 1cm/1cm
[2019-11-27] MEDS: Dyna-Hex 2% Top Sol 2oz TOPIC SCH (20:39)
[2019-11-27] MEDS: Cefepime HCl 2 GM in D5W 110 ML IV SCH (20:40)
--- NOTE | 2019-11-27 20:43 | Cardiology Progress Note ---
Assessment/Plan Problem List: (1) Edema (2) Acute on chronic systolic heart failure (3) Acute respiratory failure Assessment & Plan: remains on vent (4) ARDS (adult respiratory distress syndrome) (5) History of hypertension (6) History of left below knee amputation (7) ARF (acute renal failure) Assessment & Plan: femoral HD catheter placed today Status: not improved, unchanged Status Narrative Respiratory failure - ARDS, pneumonia, and volume overload/ CHF. Pt w/ moderate LV systolic dysfunction, EF 40%. Leukocytosis- increasing wbc today. CXR w/ bilat infilt CAD - pt reports previous DC, ? stent. Treated at [facility] within the past yr, per pt's family GANGA - Hemodialysis planned .Dialysis catheter placed by surgery today. HTN CKD PVD/ S/p BKA Assessment/Plan Would continue treatment for pneumonia/ sepsis per primary team Continue supportive care - vent, TFs, abx Hemodialysis per Dr. Sidhu Attempt to obtain records of previous hospitalization for cardiac procedures. Subjective ROS Limited/Unobtainable: Yes Subjective Cardiology for Dr. Byrd Pt intubated, but responsive. Events noted Objective Last 24 Hour Vital Signs Date Time Temp Pulse Resp B/P (MAP) Pulse Ox O2 Delivery O2 Flow Rate FiO2 11/27/19 19:07 103 22 100 Mechanical Ventilator 35 11/27/19 19:06 103 22 35 11/27/19 18:00 100 23 149/74 (99) 100 11/27/19 17:11 99 24 35 11/27/19 17:00 99 21 153/69 (97) 100 11/27/19 16:00 98.0 97 21 149/67 (94) 100 11/27/19 16:00 Mechanical Ventilator 11/27/19 16:00 98 11/27/19 16:00 35 11/27/19 15:22 98 28 35 11/27/19 15:00 96 23 143/80 (101) 100 11/27/19 14:00 90 21 139/86 (103) 100 11/27/19 13:00 88 20 139/72 (94) 100 11/27/19 12:55 88 24 35 11/27/19 12:00 35 11/27/19 12:00 97.8 85 21 137/70 (92) 100 11/27/19 12:00 Mechanical Ventilator 11/27/19 12:00 86 11/27/19 11:29 84 24 35 35 11/27/19 11:00 82 20 131/62 (85) 100 11/27/19 11:00 35 11/27/19 10:00 83 14 135/81 (99) 96 11/27/19 09:09 82 12 35 35 11/27/19 09:00 83 11 132/71 (91) 98 11/27/19 08:00 35 11/27/19 08:00 81 11/27/19 08:00 97.7 82 12 139/82 (101) 98 11/27/19 08:00 Mechanical Ventilator 11/27/19 07:14 100 11/27/19 07:10 82 28 35 35 11/27/19 07:00 78 20 129/85 (100) 100 11/27/19 06:00 81 20 136/81 (99) 100 11/27/19 05:19 78 21 35 11/27/19 05:00 87 20 140/78 (98) 100 11/27/19 04:30 140/71 11/27/19 04:30 86 22 137/80 (99) 100 11/27/19 04:00 86 11/27/19 04:00 98.0 89 19 122/73 (89) 100 11/27/19 04:00 50 11/27/19 04:00 Mechanical Ventilator 11/27/19 03:18 91 22 50 11/27/19 03:00 90 19 145/84 (104) 100 11/27/19 02:30 95 22 155/81 (105) 100 11/27/19 02:00 93 21 144/77 (99) 100 11/27/19 01:30 95 21 140/71 (94) 100 11/27/19 01:00 97 21 149/79 (102) 100 11/27/19 00:00 96 11/27/19 00:00 50 11/27/19 00:00 98.5 96 22 151/79 (103) 100 11/27/19 00:00 Mechanical Ventilator 11/26/19 23:02 94 22 50 11/26/19 23:00 100 21 153/79 (103) 100 11/26/19 22:00 108 20 168/83 (111) 100 11/26/19 21:00 78 29 142/68 (92) 88 General Appearance: alert, on vent EENT: PERRL/EOMI, other - et, ng tubes in place Rhythm: NSR Cardiovascular: normal rate, regular rhythm, no gallop/murmur Respiratory/Chest: other - coarse BS bilat Abdomen: normal bowel sounds, non tender, soft Extremities: moderate edema - L BKA stump covered w/ dry dressing, other Intake and Output 11/26/19 11/27/19 19:00 07:00 Intake Total 1315 ml 1190 ml Output Total 505 ml 295 ml Balance 810 ml 895 ml Intake Free Water 60 ml IV Total 775 ml 710 ml Tube Feeding 480 ml 480 ml Output Urine Total 505 ml 295 ml # Bowel Movements 1 Laboratory Tests Test 11/27/19 04:08 11/27/19 09:38 11/27/19 14:40 White Blood Count 16.2 K/UL (4.8-10.8) #H Red Blood Count 2.91 M/UL (4.70-6.10) L Hemoglobin 8.3 G/DL (14.2-18.0) L Hematocrit 24.7 % (42.0-52.0) L Mean Corpuscular Volume 85 FL (80-99) Mean Corpuscular Hemoglobin 28.7 PG (27.0-31.0) Mean Corpuscular Hemoglobin Concent 33.7 G/DL (32.0-36.0) Red Cell Distribution Width 14.7 % (11.6-14.8) Platelet Count 329 K/UL (150-450) Mean Platelet Volume 5.4 FL (6.5-10.1) L Neutrophils (%) (Auto) % (45.0-75.0) Lymphocytes (%) (Auto) % (20.0-45.0) Monocytes (%) (Auto) % (1.0-10.0) Eosinophils (%) (Auto) % (0.0-3.0) Basophils (%) (Auto) % (0.0-2.0) Differential Total Cells Counted 100 Neutrophils % (Manual) 95 % (45-75) H Lymphocytes % (Manual) 4 % (20-45) L Monocytes % (Manual) 1 % (1-10) Eosinophils % (Manual) 0 % (0-3) Basophils % (Manual) 0 % (0-2) Band Neutrophils 0 % (0-8) Nucleated Red Blood Cells 1 /100 WBC Platelet Estimate Adequate Platelet Morphology Normal Hypochromasia 2+ Anisocytosis 1+ Sodium Level 130 MMOL/L (136-145) L Potassium Level 4.0 MMOL/L (3.5-5.1) Chloride Level 103 MMOL/L (98-107) Carbon Dioxide Level 17 MMOL/L (21-32) L Anion Gap 10 mmol/L (5-15) Blood Urea Nitrogen 110 mg/dL (7-18) H Creatinine 5.2 MG/DL (0.55-1.30) H Estimat Glomerular Filtration Rate 13.9 mL/min (>60) Glucose Level 221 MG/DL (74-106) H Uric Acid 6.1 MG/DL (2.6-7.2) Calcium Level 8.6 MG/DL (8.5-10.1) Phosphorus Level 6.5 MG/DL (2.5-4.9) H Magnesium Level 2.3 MG/DL (1.8-2.4) Total Bilirubin 0.5 MG/DL (0.2-1.0) Aspartate Amino Transf (AST/SGOT) 113 U/L (15-37) H Alanine Aminotransferase (ALT/SGPT) 99 U/L (12-78) H Alkaline Phosphatase 106 U/L (46-116) Troponin I 0.442 ng/mL (0.000-0.056) C-Reactive Protein, Quantitative 47.8 mg/dL (0.00-0.90) H Pro-B-Type Natriuretic Peptide > 44605 pg/mL (0-125) H Total Protein 7.1 G/DL (6.4-8.2) Albumin 2.1 G/DL (3.4-5.0) L Globulin 5.0 g/dL Albumin/Globulin Ratio 0.4 (1.0-2.7) L Random Vancomycin Level 18.8 ug/mL Arterial Blood pH 7.275 (7.350-7.450) Arterial Blood Partial Pressure CO2 32.8 mmHg (35.0-45.0) L Arterial Blood Partial Pressure O2 106.4 mmHg (75.0-100.0) H Arterial Blood HCO3 14.9 mmol/L (22.0-26.0) *L Arterial Blood Oxygen Saturation 96.7 % (95-100) Arterial Blood Base Excess -10.9 (-2-2) *L Garry Test Positive Hepatitis B Surface Antigen Pending Deborah Gill MD Nov 27, 2019 20:43
--- NOTE | 2019-11-27 21:02 | NUR ---
NURSE NOTES: seen and examined by Dr. Russell with new order see other nursing order
[2019-11-27] MEDS ORDERED: Vancomycin 1gm/D5W 275ml IVPB ONE ×2 (22:00)
--- NOTE | 2019-11-27 23:00 | NUR ---
NURSE NOTES: Patient in bed resting, no s/s of acute distress noted. HOB elevated. no fever. no diarrhea, no n/v. Turned and repositioned. NGT intact no residual infusing Nephro at 40cc/hr. Right Femoral Chris cath dialysis access intact. frequent visual checks continued. Call light within easy reach
[2019-11-28] VITALS (27 sets, daily range): BP systolic 123–158; BP diastolic 61–96
--- NOTE | 2019-11-28 03:00 | NUR ---
NURSE NOTES: Oral care provided. Turned and repositioned. NGT intact no residual infusing Nephro at 40cc/hr. Right Femoral Chris cath dialysis access intact. frequent visual checks continued. Call light within easy reach
--- NOTE | 2019-11-28 04:00 | NUR ---
NURSE NOTES: Bed bath given tolerated well.
[2019-11-28 05:29] LABS: HEMOGLOBIN 7.6 G/DL (14.2-18.0); MEAN CORPUSCULAR VOLUME 85 FL (80-99); PLATELET COUNT 226 K/UL (150-450); RED CELL DISTRIBUTION WIDTH 14.5 % (11.6-14.8); WHITE BLOOD COUNT 12.4 K/UL (4.8-10.8)
[2019-11-28 05:44] LABS: ALANINE AMINOTRANSFERASE 83 U/L (12-78); ALBUMIN 1.7 G/DL (3.4-5.0); ALBUMIN/GLOBULIN RATIO 0.4 (1.0-2.7); ALKALINE PHOSPHATASE 102 U/L (46-116); ANION GAP 12 mmol/L (5-15); ASPARTATE AMINO TRANSFERASE 62 U/L (15-37); BILIRUBIN,TOTAL 0.5 MG/DL (0.2-1.0); BLOOD UREA NITROGEN 96 mg/dL (7-18); CALCIUM 8.6 MG/DL (8.5-10.1); CARBON DIOXIDE 22 MMOL/L (21-32); CHLORIDE 105 MMOL/L (98-107); CREATINE KINASE 324 U/L (26-308); CREATININE 4.8 MG/DL (0.55-1.30); PHOSPHORUS 4.2 MG/DL (2.5-4.9); POTASSIUM 3.9 MMOL/L (3.5-5.1); SODIUM 139 MMOL/L (136-145)
--- NOTE | 2019-11-28 06:00 | NUR ---
NURSE NOTES: D/C restraint patient awake,alert and understand the importance v/s risk and benefits. charge nurse aware.
[2019-11-28] MEDS: NovoLOG Insulin Flexpen SUBQ SCH ×4 (06:39→21:00)
--- NOTE | 2019-11-28 07:12 | NUR ---
HAND-OFF: Report given to Joyce MIRZA.
--- NOTE | 2019-11-28 07:13 | NUR ---
NURSE NOTES: Received patient from YUKI Braden. Patient alert to name, place, and purpose. patient denies pain at this time. Patient orally intubated with size 7.5 ET tube with 24cm at the lip line on ventilator setting of AC 20, tidal volume 600, FiO2 35%, and PEEP 10. Patient to be weaned this morning. Will follow up. Patient nasal gastric tube of the right nares that is patent, asymptomatic, reverified with auscultation and aspiration at this time and running Nepro at 40mL/hr at this time. Patient has quiñones for urine retention that is patent, asymptomatic, and draining straw yellow urine at this time. Patient has cellulitis and slight edema noted on the right leg and below the knee amputation noted on the left leg. Patient has small open wound on the sacrum that appears to be an open historical wound. Patient has an order for pressure release mattress. Will follow up and ensure the mattress has been ordered from central. Patient has right femoral Chris catheter for dialysis that is patent, asymptomatic, and dressing intact. Patient has right internal jugular triple lumen catheter that is patent, asymptomatic, dressing dry and intact, and running 0.45% normal saline at 50mL/hr at this time. Patient bed in low position with bed alarm on and call light in reach at this time. Oral care and repositioning done at this time. Will continue to monitor and follow up with weaning trial. Patient has Hgb of 7.6 this morning. Will notify MD when he rounds on the patient.
--- NOTE | 2019-11-28 08:57 | NUR ---
NURSE NOTES: Notified Dr Gill in person regarding Hgb of 7.6 and IV fluid running despite patient being hemodialysis patient. No new orders.
--- NOTE | 2019-11-28 09:04 | Cardiology Progress Note ---
Assessment/Plan Problem List: (1) Edema (2) Acute on chronic systolic heart failure (3) Acute respiratory failure Assessment & Plan: remains on vent (4) ARDS (adult respiratory distress syndrome) (5) History of hypertension (6) History of left below knee amputation (7) ARF (acute renal failure) Assessment & Plan: femoral HD catheter placed today Status: stable, progressing Status Narrative Respiratory failure - ARDS, pneumonia, and volume overload/ CHF. Cardiomyopathy, ? ischemic v nonischemic. Pt w/ moderate LV systolic dysfunction , EF 40%. - Leukocytosis- increasing wbc today. CXR w/ bilat infilt CAD - pt reports previous [place], ? stent. Treated at [facility] within the past yr, per pt's family GANGA -(acute on chronic) Initial hemodialysis yesterday w 2L fluid removed . HTN - BPs elevated PVD/ S/p BKA Assessment/Plan Wean from vent today, as per pulmonary. Hemodialysis, as per nephrology, Dr Sidhu Start rx for cardiomyopathy - hydralazine/ isordil for afterload reduction. Coreg in few days, once pulm congestion has resolved. Continue supportive care - vent, TFs, abx Attempt to obtain records of previous hospitalization at [facility] for cardiac procedures. Subjective ROS Limited/Unobtainable: Yes Subjective Cardiology for Dr. Byrd Pt being weaned from vent. Awake/alert Objective Last 24 Hour Vital Signs Date Time Temp Pulse Resp B/P (MAP) Pulse Ox O2 Delivery O2 Flow Rate FiO2 11/28/19 08:00 Mechanical Ventilator 11/28/19 08:00 100 11/28/19 08:00 35 11/28/19 08:00 99.8 99 1 145/69 (94) 100 11/28/19 07:27 103 21 35 11/28/19 07:00 101 20 157/75 (102) 100 11/28/19 06:30 99.8 102 18 154/71 (98) 100 11/28/19 06:00 103 12 151/73 (99) 100 11/28/19 05:36 104 22 35 11/28/19 05:30 102 22 148/71 (96) 100 11/28/19 05:00 98 21 154/70 (98) 100 11/28/19 04:30 157/72 11/28/19 04:00 100 11/28/19 04:00 98.8 100 21 157/72 (100) 100 100 11/28/19 04:00 Mechanical Ventilator 11/28/19 04:00 35 11/28/19 03:29 101 24 35 11/28/19 03:00 99 20 150/67 (94) 100 100 11/28/19 02:30 98 20 144/68 (93) 100 100 11/28/19 02:06 101 22 149/69 (95) 100 11/28/19 01:30 101 22 35 11/28/19 01:00 98 20 139/69 (92) 100 11/28/19 00:00 98.0 100 20 148/73 (98) 100 11/28/19 00:00 35 11/28/19 00:00 98 11/28/19 00:00 Mechanical Ventilator 11/27/19 23:00 100 24 35 11/27/19 23:00 100 20 138/68 (91) 100 11/27/19 22:00 99 20 147/74 (98) 100 11/27/19 21:11 98.0 11/27/19 21:05 99 23 35 11/27/19 21:00 103 20 138/71 (93) 100 11/27/19 20:00 35 11/27/19 20:00 Mechanical Ventilator 11/27/19 20:00 22 Mechanical Ventilator 100.0 35 11/27/19 20:00 100 11/27/19 20:00 98.2 103 20 138/71 (93) 100 11/27/19 19:07 103 22 100 Mechanical Ventilator 35 11/27/19 19:06 103 22 35 11/27/19 19:00 100 20 152/79 (103) 100 11/27/19 18:00 100 23 149/74 (99) 100 11/27/19 17:11 99 24 35 11/27/19 17:00 99 21 153/69 (97) 100 11/27/19 16:00 98.0 97 21 149/67 (94) 100 11/27/19 16:00 Mechanical Ventilator 11/27/19 16:00 98 11/27/19 16:00 35 11/27/19 15:22 98 28 35 11/27/19 15:00 96 23 143/80 (101) 100 11/27/19 14:00 90 21 139/86 (103) 100 11/27/19 13:00 88 20 139/72 (94) 100 11/27/19 12:55 88 24 35 11/27/19 12:00 35 11/27/19 12:00 97.8 85 21 137/70 (92) 100 11/27/19 12:00 Mechanical Ventilator 11/27/19 12:00 86 11/27/19 11:29 84 24 35 35 11/27/19 11:00 82 20 131/62 (85) 100 11/27/19 11:00 35 11/27/19 10:00 83 14 135/81 (99) 96 11/27/19 09:09 82 12 35 35 11/27/19 09:00 83 11 132/71 (91) 98 General Appearance: WD/WN, alert, on vent EENT: PERRL/EOMI, other - et, ng tube Neck: non-tender, supple, no JVD Rhythm: NSR Cardiovascular: normal rate, regular rhythm, no gallop/murmur Respiratory/Chest: other - clear anteriorly Abdomen: normal bowel sounds, non tender, soft Extremities: moderate edema, other - L BKA Intake and Output 11/27/19 11/28/19 19:00 07:00 Intake Total 2970 ml 1290 ml Output Total 250 ml 240 ml Balance 2720 ml 1050 ml Intake Free Water 100 ml IV Total 600 ml 710 ml Tube Feeding 320 ml 480 ml Hemodialysis 2000 ml Other 50 ml Output Urine Total 250 ml 240 ml Laboratory Tests Test 11/27/19 09:38 11/27/19 14:40 11/28/19 04:30 Arterial Blood pH 7.275 (7.350-7.450) Arterial Blood Partial Pressure CO2 32.8 mmHg (35.0-45.0) L Arterial Blood Partial Pressure O2 106.4 mmHg (75.0-100.0) H Arterial Blood HCO3 14.9 mmol/L (22.0-26.0) *L Arterial Blood Oxygen Saturation 96.7 % (95-100) Arterial Blood Base Excess -10.9 (-2-2) *L Garry Test Positive Hepatitis B Surface Antigen Negative (NEGATIVE) White Blood Count 12.4 K/UL (4.8-10.8) H Red Blood Count 2.60 M/UL (4.70-6.10) L Hemoglobin 7.6 G/DL (14.2-18.0) L Hematocrit 22.0 % (42.0-52.0) L Mean Corpuscular Volume 85 FL (80-99) Mean Corpuscular Hemoglobin 29.2 PG (27.0-31.0) Mean Corpuscular Hemoglobin Concent 34.5 G/DL (32.0-36.0) Red Cell Distribution Width 14.5 % (11.6-14.8) Platelet Count 226 K/UL (150-450) Mean Platelet Volume 4.9 FL (6.5-10.1) L Neutrophils (%) (Auto) % (45.0-75.0) Lymphocytes (%) (Auto) % (20.0-45.0) Monocytes (%) (Auto) % (1.0-10.0) Eosinophils (%) (Auto) % (0.0-3.0) Basophils (%) (Auto) % (0.0-2.0) Neutrophils % (Manual) Pending Lymphocytes % (Manual) Pending Platelet Estimate Pending Platelet Morphology Pending Sodium Level 139 MMOL/L (136-145) Potassium Level 3.9 MMOL/L (3.5-5.1) Chloride Level 105 MMOL/L (98-107) Carbon Dioxide Level 22 MMOL/L (21-32) Anion Gap 12 mmol/L (5-15) Blood Urea Nitrogen 96 mg/dL (7-18) H Creatinine 4.8 MG/DL (0.55-1.30) H Estimat Glomerular Filtration Rate 15.3 mL/min (>60) Glucose Level 208 MG/DL (74-106) H Uric Acid 5.1 MG/DL (2.6-7.2) Calcium Level 8.6 MG/DL (8.5-10.1) Phosphorus Level 4.2 MG/DL (2.5-4.9) Magnesium Level 2.1 MG/DL (1.8-2.4) Total Bilirubin 0.5 MG/DL (0.2-1.0) Aspartate Amino Transf (AST/SGOT) 62 U/L (15-37) H Alanine Aminotransferase (ALT/SGPT) 83 U/L (12-78) H Alkaline Phosphatase 102 U/L (46-116) Total Creatine Kinase 324 U/L (26-308) H C-Reactive Protein, Quantitative 35.5 mg/dL (0.00-0.90) H Pro-B-Type Natriuretic Peptide > 28390 pg/mL (0-125) H Total Protein 6.4 G/DL (6.4-8.2) Albumin 1.7 G/DL (3.4-5.0) L Globulin 4.7 g/dL Albumin/Globulin Ratio 0.4 (1.0-2.7) L Deborah Gill MD Nov 28, 2019 09:04
--- NOTE | 2019-11-28 09:27 | NUR ---
RD ASSESSMENT & RECOMMENDATIONS SEE CARE ACTIVITY FOR COMPLETE ASSESSMENT DAILY ESTIMATED NEEDS: Needs based on Critical care, sepsis, now HD 75kg adj 22-28 kcals/kg 8775-1136 total kcals 1.25-2 g protein/kg 94-150 g total protein 25-30 mL/kg 6480-2263 total fluid mLs NUTRITION DIAGNOSIS: Swallowing difficulty r/t resp status as evidenced by septic, intubated, NGT feeds, pending weaning trials. ENTERAL NUTRITION RECOMMENDATIONS: Nepro @40ml/hr x24 hrs + Prosource BID to provide 960ml, 78g + 22 g pro, 698ml free H2O - Maintain Nepro @40ml/hr as tolerated. - Add Prosource BID to better meet est pro needs - Flush per MD. HOB over 30 degrees ADDITIONAL RECOMMENDATIONS: 1) Tf recs as above, feed as medically able 2) Ad PROSOURCE VIA NGT BID to better meet est pro needs 3) Per SNF: 69inches tall, last wt of 210 lbs (2/3) -> rec weekly calibrated bed scale wts 4) ARBORIST CLIMBER eval upon extubation -> RENAL/ CCHO MED DIET W/ CURRENT HD
[2019-11-28] MEDS: HydrALAZINE 25mg tab ORAL SCH ×3 (09:29→21:03)
[2019-11-28] MEDS: Pantoprazole Inj IV SCH ×2 (09:30→21:02)
--- NOTE | 2019-11-28 09:30 | NUR ---
NURSE NOTES: Notified Dr Sidhu that hgb 7.6 this morning. Received notification that patient would receive dialysis today and he would order one PRBC to be given during dialysis.
[2019-11-28] MEDS: Heparin 5000 units/ml inj SUBQ SCH ×2 (09:38→21:07)
--- NOTE | 2019-11-28 10:16 | Nephrology Progress Note ---
Assessment/Plan Problem List: (1) ARF (acute renal failure) (2) Acute respiratory failure (3) Septic shock (4) Anemia (5) History of hypertension (6) Diabetes mellitus (7) Acute on chronic systolic heart failure Assessment: ej Fx 40 Assessment Acute renal failure- ? Underlying CKD Respiratory failure Anemia Sepsis / Shock ? Pneumonia DM HTN by history Gout left BKA Cardiomyopathy - Ej Fx 40% Plan Plan: HD 2/16 done and 2 liters removed HD again today and transfusion start coreg discussed with ICU transmitter engineer in charge DC IV previously DC Hydrocortisone Antibiotics urine studies avoid nephrotoxics monitor renal parameters Anemia hairston per orders Subjective ROS Limited/Unobtainable: Yes Objective Objective Last 24 Hour Vital Signs Date Time Temp Pulse Resp B/P (MAP) Pulse Ox O2 Delivery O2 Flow Rate FiO2 11/28/19 09:29 148/70 11/28/19 09:18 100 11/28/19 09:13 102 24 35 11/28/19 08:00 Mechanical Ventilator 11/28/19 08:00 100 11/28/19 08:00 35 11/28/19 08:00 99.8 99 1 145/69 (94) 100 11/28/19 07:27 103 21 35 11/28/19 07:00 101 20 157/75 (102) 100 11/28/19 06:30 99.8 102 18 154/71 (98) 100 11/28/19 06:00 103 12 151/73 (99) 100 11/28/19 05:36 104 22 35 11/28/19 05:30 102 22 148/71 (96) 100 11/28/19 05:00 98 21 154/70 (98) 100 11/28/19 04:30 157/72 11/28/19 04:00 100 11/28/19 04:00 98.8 100 21 157/72 (100) 100 100 11/28/19 04:00 Mechanical Ventilator 11/28/19 04:00 35 11/28/19 03:29 101 24 35 11/28/19 03:00 99 20 150/67 (94) 100 100 11/28/19 02:30 98 20 144/68 (93) 100 100 11/28/19 02:06 101 22 149/69 (95) 100 11/28/19 01:30 101 22 35 11/28/19 01:00 98 20 139/69 (92) 100 11/28/19 00:00 98.0 100 20 148/73 (98) 100 11/28/19 00:00 35 11/28/19 00:00 98 11/28/19 00:00 Mechanical Ventilator 11/27/19 23:00 100 24 35 11/27/19 23:00 100 20 138/68 (91) 100 11/27/19 22:00 99 20 147/74 (98) 100 11/27/19 21:11 98.0 11/27/19 21:05 99 23 35 11/27/19 21:00 103 20 138/71 (93) 100 11/27/19 20:00 35 11/27/19 20:00 Mechanical Ventilator 11/27/19 20:00 22 Mechanical Ventilator 100.0 35 11/27/19 20:00 100 11/27/19 20:00 98.2 103 20 138/71 (93) 100 11/27/19 19:07 103 22 100 Mechanical Ventilator 35 11/27/19 19:06 103 22 35 11/27/19 19:00 100 20 152/79 (103) 100 11/27/19 18:00 100 23 149/74 (99) 100 11/27/19 17:11 99 24 35 11/27/19 17:00 99 21 153/69 (97) 100 11/27/19 16:00 98.0 97 21 149/67 (94) 100 11/27/19 16:00 Mechanical Ventilator 11/27/19 16:00 98 11/27/19 16:00 35 11/27/19 15:22 98 28 35 11/27/19 15:00 96 23 143/80 (101) 100 11/27/19 14:00 90 21 139/86 (103) 100 11/27/19 13:00 88 20 139/72 (94) 100 11/27/19 12:55 88 24 35 11/27/19 12:00 35 11/27/19 12:00 97.8 85 21 137/70 (92) 100 11/27/19 12:00 Mechanical Ventilator 11/27/19 12:00 86 11/27/19 11:29 84 24 35 35 11/27/19 11:00 82 20 131/62 (85) 100 11/27/19 11:00 35 Intake and Output 11/27/19 11/28/19 19:00 07:00 Intake Total 2970 ml 1290 ml Output Total 250 ml 240 ml Balance 2720 ml 1050 ml Intake Free Water 100 ml IV Total 600 ml 710 ml Tube Feeding 320 ml 480 ml Hemodialysis 2000 ml Other 50 ml Output Urine Total 250 ml 240 ml Laboratory Tests 11/27/19 14:40: Hepatitis B Surface Antigen Negative 11/28/19 04:30: White Blood Count 12.4H, Red Blood Count 2.60L, Hemoglobin 7.6L, Hematocrit 22.0L, Mean Corpuscular Volume 85, Mean Corpuscular Hemoglobin 29.2, Mean Corpuscular Hemoglobin Concent 34.5, Red Cell Distribution Width 14.5, Platelet Count 226, Mean Platelet Volume 4.9L, Neutrophils (%) (Auto) , Lymphocytes (%) ( Auto) , Monocytes (%) (Auto) , Eosinophils (%) (Auto) , Basophils (%) (Auto) , Differential Total Cells Counted 100, Neutrophils % (Manual) 89H, Lymphocytes % (Manual) 6L, Monocytes % (Manual) 5, Eosinophils % (Manual) 0, Basophils % ( Manual) 0, Band Neutrophils 0, Platelet Estimate Adequate, Platelet Morphology Normal, Hypochromasia 1+, Anisocytosis 1+, Sodium Level 139, Potassium Level 3.9 , Chloride Level 105, Carbon Dioxide Level 22, Anion Gap 12, Blood Urea Nitrogen 96H, Creatinine 4.8H, Estimat Glomerular Filtration Rate 15.3, Glucose Level 208H, Uric Acid 5.1, Calcium Level 8.6, Phosphorus Level 4.2, Magnesium Level 2.1, Total Bilirubin 0.5, Aspartate Amino Transf (AST/SGOT) 62H, Alanine Aminotransferase (ALT/SGPT) 83H, Alkaline Phosphatase 102, Total Creatine Kinase 324H, C-Reactive Protein, Quantitative 35.5H, Pro-B-Type Natriuretic Peptide > 35854D, Total Protein 6.4, Albumin 1.7L, Globulin 4.7, Albumin/ Globulin Ratio 0.4L Height (Feet): 5 Height (Inches): 8.00 Weight (Pounds): 240 General Appearance: no apparent distress EENT: other - on vent- NGT feeding Cardiovascular: tachycardia Respiratory/Chest: decreased breath sounds Abdomen: distended Tej Sidhu MD Nov 28, 2019 10:16
[2019-11-28] MEDS ORDERED: Carvedilol 6.25mg Tab NG ONE (10:48)
--- NOTE | 2019-11-28 10:58 | NUR ---
NURSE NOTES: Called [facility] and reported hemodialysis scheduled for today. Received notification that commutator repairer Harry would be notified. Awaiting call back.
--- NOTE | 2019-11-28 11:29 | Infectious Diseases Prog Note ---
Assessment/Plan Assessment/Plan Assessment: Septic Shock- SP Pneumonia -11/24 u/a neg; ucx neg Bcx NTD influenza sc neg CXR: Bilateral dense consolidation, likely pneumonia. Pulmonary edema also possible. Correlate with clinical findings sp cx ordered,not done Fever, SP Leukocytosis, improving ARDS Acute respiratory failure s/p intubation 11/24 GANGA on CKD; now on HD 11/27 Elevated LFTs Troponinemia Dm2 Gout s/p L BKA allergic rhinitis CAD s/p stent prosthetic AVR hx of esophagitis PVD chronic sCHF HLD HTN SNF resident Plan: -Continue empiric IV Vancomycin and Cefepime #5pending sp cx -Continue empiric LEvaquin #5 for legionella pending test -continue empiric Tamiflu #4/7 despite neg screen test -f/u cx -Monitor CBC/CMP, temperatures -sp cx -ICU/ETT care -aspiration precautions discussed with RN Thank you for this consultation. Will continue to follow along with you. Subjective Allergies: Coded Allergies: No Known Allergies (Unverified , 11/24/19) Subjective afebrile >48hrs remains intubated wbc improving Objective Vital Signs Last 24 Hour Vital Signs Date Time Temp Pulse Resp B/P (MAP) Pulse Ox O2 Delivery O2 Flow Rate FiO2 11/28/19 11:04 97 20 35 11/28/19 09:29 148/70 11/28/19 09:18 100 11/28/19 09:13 102 24 35 11/28/19 08:00 Mechanical Ventilator 11/28/19 08:00 100 11/28/19 08:00 35 11/28/19 08:00 99.8 99 1 145/69 (94) 100 11/28/19 07:27 103 21 35 11/28/19 07:00 101 20 157/75 (102) 100 11/28/19 06:30 99.8 102 18 154/71 (98) 100 11/28/19 06:00 103 12 151/73 (99) 100 11/28/19 05:36 104 22 35 11/28/19 05:30 102 22 148/71 (96) 100 11/28/19 05:00 98 21 154/70 (98) 100 11/28/19 04:30 157/72 11/28/19 04:00 100 11/28/19 04:00 98.8 100 21 157/72 (100) 100 100 11/28/19 04:00 Mechanical Ventilator 11/28/19 04:00 35 11/28/19 03:29 101 24 35 11/28/19 03:00 99 20 150/67 (94) 100 100 11/28/19 02:30 98 20 144/68 (93) 100 100 11/28/19 02:06 101 22 149/69 (95) 100 11/28/19 01:30 101 22 35 11/28/19 01:00 98 20 139/69 (92) 100 11/28/19 00:00 98.0 100 20 148/73 (98) 100 11/28/19 00:00 35 11/28/19 00:00 98 11/28/19 00:00 Mechanical Ventilator 11/27/19 23:00 100 24 35 11/27/19 23:00 100 20 138/68 (91) 100 11/27/19 22:00 99 20 147/74 (98) 100 11/27/19 21:11 98.0 11/27/19 21:05 99 23 35 11/27/19 21:00 103 20 138/71 (93) 100 11/27/19 20:00 35 11/27/19 20:00 Mechanical Ventilator 11/27/19 20:00 22 Mechanical Ventilator 100.0 35 11/27/19 20:00 100 11/27/19 20:00 98.2 103 20 138/71 (93) 100 11/27/19 19:07 103 22 100 Mechanical Ventilator 35 11/27/19 19:06 103 22 35 11/27/19 19:00 100 20 152/79 (103) 100 11/27/19 18:00 100 23 149/74 (99) 100 11/27/19 17:11 99 24 35 11/27/19 17:00 99 21 153/69 (97) 100 11/27/19 16:00 98.0 97 21 149/67 (94) 100 11/27/19 16:00 Mechanical Ventilator 11/27/19 16:00 98 11/27/19 16:00 35 11/27/19 15:22 98 28 35 11/27/19 15:00 96 23 143/80 (101) 100 11/27/19 14:00 90 21 139/86 (103) 100 11/27/19 13:00 88 20 139/72 (94) 100 11/27/19 12:55 88 24 35 11/27/19 12:00 35 11/27/19 12:00 97.8 85 21 137/70 (92) 100 11/27/19 12:00 Mechanical Ventilator 11/27/19 12:00 86 11/27/19 11:29 84 24 35 35 Height (Feet): 5 Height (Inches): 8.00 Weight (Pounds): 240 Laboratory Tests Test 11/27/19 14:40 11/28/19 04:30 Hepatitis B Surface Antigen Negative (NEGATIVE) White Blood Count 12.4 K/UL (4.8-10.8) H Red Blood Count 2.60 M/UL (4.70-6.10) L Hemoglobin 7.6 G/DL (14.2-18.0) L Hematocrit 22.0 % (42.0-52.0) L Mean Corpuscular Volume 85 FL (80-99) Mean Corpuscular Hemoglobin 29.2 PG (27.0-31.0) Mean Corpuscular Hemoglobin Concent 34.5 G/DL (32.0-36.0) Red Cell Distribution Width 14.5 % (11.6-14.8) Platelet Count 226 K/UL (150-450) Mean Platelet Volume 4.9 FL (6.5-10.1) L Neutrophils (%) (Auto) % (45.0-75.0) Lymphocytes (%) (Auto) % (20.0-45.0) Monocytes (%) (Auto) % (1.0-10.0) Eosinophils (%) (Auto) % (0.0-3.0) Basophils (%) (Auto) % (0.0-2.0) Differential Total Cells Counted 100 Neutrophils % (Manual) 89 % (45-75) H Lymphocytes % (Manual) 6 % (20-45) L Monocytes % (Manual) 5 % (1-10) Eosinophils % (Manual) 0 % (0-3) Basophils % (Manual) 0 % (0-2) Band Neutrophils 0 % (0-8) Platelet Estimate Adequate Platelet Morphology Normal Hypochromasia 1+ Anisocytosis 1+ Sodium Level 139 MMOL/L (136-145) Potassium Level 3.9 MMOL/L (3.5-5.1) Chloride Level 105 MMOL/L (98-107) Carbon Dioxide Level 22 MMOL/L (21-32) Anion Gap 12 mmol/L (5-15) Blood Urea Nitrogen 96 mg/dL (7-18) H Creatinine 4.8 MG/DL (0.55-1.30) H Estimat Glomerular Filtration Rate 15.3 mL/min (>60) Glucose Level 208 MG/DL (74-106) H Uric Acid 5.1 MG/DL (2.6-7.2) Calcium Level 8.6 MG/DL (8.5-10.1) Phosphorus Level 4.2 MG/DL (2.5-4.9) Magnesium Level 2.1 MG/DL (1.8-2.4) Total Bilirubin 0.5 MG/DL (0.2-1.0) Aspartate Amino Transf (AST/SGOT) 62 U/L (15-37) H Alanine Aminotransferase (ALT/SGPT) 83 U/L (12-78) H Alkaline Phosphatase 102 U/L (46-116) Total Creatine Kinase 324 U/L (26-308) H C-Reactive Protein, Quantitative 35.5 mg/dL (0.00-0.90) H Pro-B-Type Natriuretic Peptide > 22626 pg/mL (0-125) H Total Protein 6.4 G/DL (6.4-8.2) Albumin 1.7 G/DL (3.4-5.0) L Globulin 4.7 g/dL Albumin/Globulin Ratio 0.4 (1.0-2.7) L Current Medications Medications (Trade) Dose Ordered Sig/Valeriano Route PRN Reason Start Time Stop Time Status Last Admin Dose Admin Acetaminophen (Tylenol) 650 mg Q4H PRN ORAL FEVER 11/24/19 13:30 12/24/19 13:29 11/25/19 19:36 Albuterol/ Ipratropium (Albuterol/ Ipratropium) 3 ml Q4H PRN HHN Shortness of Breath 11/24/19 13:30 11/29/19 13:29 11/24/19 14:46 Carvedilol (Coreg) 6.25 mg EVERY 12 HOURS NG 11/28/19 21:00 12/28/19 20:59 Cefepime HCl 2 gm/ Dextrose 110 ml @ 220 mls/hr Q24H IV 11/24/19 21:00 12/01/19 20:59 11/27/19 20:40 Chlorhexidine Gluconate (Katia-Hex 2%) 1 applic DAILY@2000 TOPIC 11/25/19 20:00 12/25/19 19:59 11/27/19 20:39 Dextrose (Dextrose 50%) 25 ml Q30M PRN IV Hypoglycemia 11/24/19 13:30 12/24/19 13:29 Dextrose (Dextrose 50%) 50 ml Q30M PRN IV Hypoglycemia 11/24/19 13:30 12/24/19 13:29 Fentanyl Citrate 2500 mcg/Sodium Chloride 250 ml @ 0 mls/hr Q24H IV 11/24/19 20:00 12/01/19 19:59 11/24/19 19:54 Folic Acid (Folate) 5 mg DAILY GT 11/27/19 09:00 12/27/19 08:59 11/28/19 09:30 Heparin Sodium (Porcine) (Heparin 5000 units/ml) 5,000 units EVERY 12 HOURS SUBQ 11/24/19 21:00 12/24/19 20:59 11/28/19 09:38 Hydralazine HCl (Apresoline) 25 mg EVERY 8 HOURS ORAL 11/28/19 09:15 12/28/19 09:14 11/28/19 09:29 Insulin Aspart (NovoLOG) BEFORE MEALS AND HS SUBQ 11/24/19 16:30 12/24/19 16:29 11/28/19 06:39 Isosorbide Dinitrate (Isordil) 10 mg Q6HR ORAL 11/28/19 12:00 12/28/19 11:59 Levofloxacin (Levaquin) 500 mg Q48H ORAL 11/27/19 13:00 12/02/19 12:59 11/27/19 13:36 Lorazepam (Ativan 2mg/ml 1ml) 2 mg Q4H PRN IV For Anxiety 11/24/19 15:15 12/01/19 15:14 11/27/19 18:03 Morphine Sulfate (Morphine Sulfate) 4 mg Q4H PRN IVP For Pain 11/24/19 15:15 12/01/19 15:14 11/27/19 20:41 Nitroglycerin (Ntg) 0.4 mg Q5M PRN SL Prn Chest Pain 11/24/19 09:30 12/24/19 09:29 11/24/19 09:23 Norepinephrine Bitartrate 8 mg/ Dextrose 500 ml @ 0 mls/hr Q24H IV 11/25/19 04:30 12/25/19 04:29 11/25/19 04:54 Ondansetron HCl (Zofran) 4 mg Q6H PRN IVP Nausea & Vomiting 11/24/19 13:30 12/24/19 13:29 Oseltamivir Phosphate (Tamiflu) 30 mg DAILY ORAL 11/25/19 13:00 11/30/19 12:59 11/28/19 09:31 Pantoprazole (Protonix) 40 mg Q12HR IV 11/25/19 21:00 12/25/19 08:59 11/28/19 09:30 Polyethylene Glycol (Miralax) 17 gm DAILYPRN PRN ORAL Constipation 11/24/19 13:30 12/24/19 13:29 Promethazine HCl/ Codeine (Phenergan with Codeine) 5 ml Q4H PRN ORAL For Cough 11/24/19 13:30 12/24/19 13:29 Vancomycin HCl (Vanco rx to dose) 1 ea DAILY PRN MISC . 11/24/19 13:30 12/24/19 13:29 Yojana Bennett M.D. Nov 28, 2019 11:29
--- NOTE | 2019-11-28 11:51 | NUR ---
NURSE NOTES: Received report from radiologist that NGT too high and it needs to be advance 10cm. Tube advanced at this time and repeat KUB ordered. Addendum: 11/28/19 at 1554 by Joyce Hernandez RN Tube verified. Tube feeding resumed at 1300.
--- NOTE | 2019-11-28 11:56 | Diagnostic Imaging Report ---
Indication: Abnormal chest sounds, dyspnea Technique: One view of the chest Comparison: To 2019 Findings: Enteric tube projects at the level of the gastroesophageal junction. Stable satisfactory position of endotracheal tube. Right internal jugular central venous catheter tip projects deep within the right atrium. Bilateral diffuse interstitial and airspace disease persists, unchanged. Heart size is normal. No definite effusions. Impression: High position of enteric tube, advancement recommended. Patient nurse notified at the time of interpretation Otherwise stable findings as described
--- NOTE | 2019-11-28 12:00 | NUR ---
NURSE NOTES: Patient remains alert to name, place, and purpose. Patient denies pain at this time. Patient orally intubated with size 7.5 ET tube with 24cm. Patient on weaning trial at this time with CPAP pressure support 5 and FiO2 35%. Nasal gastric tube of the right nares that malpositioned and advanced to 75cm. Awaiting KUB result/verification. Cruz for urine retention remain patent, asymptomatic, and draining straw yellow urine. Pressure release mattress still has not arrived. Will follow up. Right femoral Chris catheter remains patent, asymptomatic, and dressing intact. Right internal jugular triple lumen catheter remains patent, asymptomatic, dressing dry and intact, and saline locked. Patient bed in low position with bed alarm on and call light in reach at this time. Oral care and repositioning done at this time.
--- NOTE | 2019-11-28 12:50 | Diagnostic Imaging Report ---
Indication: Status post gastric tube repositioning Technique: Supine view of the upper abdomen Comparison: 11/24/2019, chest radiograph performed at 0956 Findings: Interim advancement of gastric tube, tip now projected at the level gastric antrum in good position. Bowel gas pattern is unremarkable. Impression: Improved and now satisfactory position of enteric tube
--- NOTE | 2019-11-28 13:46 | NUR ---
NURSE NOTES:WOUND CARE NOTES:Pt noted to have developed partial thickness pressure injury cleft (L)7.5cm x (W)2.5cm with surrounding non-blanching erythema without induration extending to R and L buttocks(L)7.5cm x (W)5.5cm. Pt denied tenderness when affected areas minimally palpated. L BKA stump noted to have two small areas of hyperpigmentation dorsal aspect. R lower ext edematous with several small nodules distally. R heel is dry but blanchable. No other areas of skin breakdown noted. Tx.Plan: Apply Moisture Barrier paste to Sacrum and buttock. Cover with Optifoam drsg. Change every 3 days and prn. Apply Cavilon to L BKA .Cover with Optifoam drsg. Change every 7 days and prn. Apply Cavilon to R heel. Cover with Optifoam drsg. Change every 7 days and prn. APM/DEEP Mattress overlay. Reposition at least every 2hours or as tolerated. Off-load R heel with pillow. Elevate L BKA with pillow.
--- NOTE | 2019-11-28 13:58 | NUR ---
LEATHER SHAV[employer]AR [employer] SI; RESP FAILURE ETT/VENT SUPPORT,SEPSIS T. 99.8 HR 99 RR 21 B/P 152/96 AC 20 TV 600 FIO2 35% PEEP 10 PH 7.38 PCO2 36.0 PO2 56.8 HCO3 19.9 O2 SAT 86.9 WBC 12.4 H/H 7.6/22.0 AST 62 ALK 63 IS: CEFEPIME IV LEVAQUIN NGT PROTONIX IV ALB HHN ICU STATUS
--- NOTE | 2019-11-28 14:00 | NUR ---
NURSE NOTES: Vital signs stable. No sign of acute distress. patient still on weaning trial with CPAP pressure support 5, FiO2 40%. RR 16 and tidal volume 600-700. Pulmonary MD still has not arrived on the unit. Will continue to monitor.
--- NOTE | 2019-11-28 14:02 | Surgery Progress Note ---
Surgery Progress Note Subjective Procedure Performed Right femoral temporary hemodialysis catheter insertion Additional Comments improving had HD states feels better still on support more alert and awake labs improving Objective Last 24 Hour Vital Signs Date Time Temp Pulse Resp B/P (MAP) Pulse Ox O2 Delivery O2 Flow Rate FiO2 11/28/19 13:25 97 20 35 11/28/19 12:29 149/68 11/28/19 12:00 97 21 157/72 (100) 100 11/28/19 12:00 96 11/28/19 11:23 98 155/70 11/28/19 11:04 97 20 35 11/28/19 11:00 99 18 155/70 (98) 100 11/28/19 10:00 98 19 149/73 (98) 100 11/28/19 09:29 148/70 11/28/19 09:18 100 11/28/19 09:13 102 24 35 11/28/19 09:00 98 21 152/96 (114) 100 11/28/19 08:00 Mechanical Ventilator 11/28/19 08:00 100 11/28/19 08:00 35 11/28/19 08:00 99.8 99 1 145/69 (94) 100 11/28/19 07:27 103 21 35 11/28/19 07:00 101 20 157/75 (102) 100 11/28/19 06:30 99.8 102 18 154/71 (98) 100 11/28/19 06:00 103 12 151/73 (99) 100 11/28/19 05:36 104 22 35 11/28/19 05:30 102 22 148/71 (96) 100 11/28/19 05:00 98 21 154/70 (98) 100 11/28/19 04:30 157/72 11/28/19 04:00 100 11/28/19 04:00 98.8 100 21 157/72 (100) 100 100 11/28/19 04:00 Mechanical Ventilator 11/28/19 04:00 35 11/28/19 03:29 101 24 35 11/28/19 03:00 99 20 150/67 (94) 100 100 11/28/19 02:30 98 20 144/68 (93) 100 100 11/28/19 02:06 101 22 149/69 (95) 100 11/28/19 01:30 101 22 35 11/28/19 01:00 98 20 139/69 (92) 100 11/28/19 00:00 98.0 100 20 148/73 (98) 100 11/28/19 00:00 35 11/28/19 00:00 98 11/28/19 00:00 Mechanical Ventilator 11/27/19 23:00 100 24 35 11/27/19 23:00 100 20 138/68 (91) 100 11/27/19 22:00 99 20 147/74 (98) 100 11/27/19 21:11 98.0 11/27/19 21:05 99 23 35 11/27/19 21:00 103 20 138/71 (93) 100 11/27/19 20:00 35 11/27/19 20:00 Mechanical Ventilator 11/27/19 20:00 22 Mechanical Ventilator 100.0 35 11/27/19 20:00 100 11/27/19 20:00 98.2 103 20 138/71 (93) 100 11/27/19 19:07 103 22 100 Mechanical Ventilator 35 11/27/19 19:06 103 22 35 11/27/19 19:00 100 20 152/79 (103) 100 11/27/19 18:00 100 23 149/74 (99) 100 11/27/19 17:11 99 24 35 11/27/19 17:00 99 21 153/69 (97) 100 11/27/19 16:00 98.0 97 21 149/67 (94) 100 11/27/19 16:00 Mechanical Ventilator 11/27/19 16:00 98 11/27/19 16:00 35 11/27/19 15:22 98 28 35 11/27/19 15:00 96 23 143/80 (101) 100 I&O Intake and Output 11/27/19 11/28/19 19:00 07:00 Intake Total 2970 ml 1290 ml Output Total 250 ml 240 ml Balance 2720 ml 1050 ml Intake Free Water 100 ml IV Total 600 ml 710 ml Tube Feeding 320 ml 480 ml Hemodialysis 2000 ml Other 50 ml Output Urine Total 250 ml 240 ml Dressing: other Wound: other Drains: other Cardiovascular: RSR Respiratory: decreased breath sounds Abdomen: soft, non-tender, present bowel sounds Extremities: no cyanosis, other Laboratory Tests Test 11/27/19 14:40 11/28/19 04:30 11/28/19 11:15 Hepatitis B Surface Antigen Negative (NEGATIVE) White Blood Count 12.4 K/UL (4.8-10.8) H Red Blood Count 2.60 M/UL (4.70-6.10) L Hemoglobin 7.6 G/DL (14.2-18.0) L Hematocrit 22.0 % (42.0-52.0) L Mean Corpuscular Volume 85 FL (80-99) Mean Corpuscular Hemoglobin 29.2 PG (27.0-31.0) Mean Corpuscular Hemoglobin Concent 34.5 G/DL (32.0-36.0) Red Cell Distribution Width 14.5 % (11.6-14.8) Platelet Count 226 K/UL (150-450) Mean Platelet Volume 4.9 FL (6.5-10.1) L Neutrophils (%) (Auto) % (45.0-75.0) Lymphocytes (%) (Auto) % (20.0-45.0) Monocytes (%) (Auto) % (1.0-10.0) Eosinophils (%) (Auto) % (0.0-3.0) Basophils (%) (Auto) % (0.0-2.0) Differential Total Cells Counted 100 Neutrophils % (Manual) 89 % (45-75) H Lymphocytes % (Manual) 6 % (20-45) L Monocytes % (Manual) 5 % (1-10) Eosinophils % (Manual) 0 % (0-3) Basophils % (Manual) 0 % (0-2) Band Neutrophils 0 % (0-8) Platelet Estimate Adequate Platelet Morphology Normal Hypochromasia 1+ Anisocytosis 1+ Sodium Level 139 MMOL/L (136-145) Potassium Level 3.9 MMOL/L (3.5-5.1) Chloride Level 105 MMOL/L (98-107) Carbon Dioxide Level 22 MMOL/L (21-32) Anion Gap 12 mmol/L (5-15) Blood Urea Nitrogen 96 mg/dL (7-18) H Creatinine 4.8 MG/DL (0.55-1.30) H Estimat Glomerular Filtration Rate 15.3 mL/min (>60) Glucose Level 208 MG/DL (74-106) H Uric Acid 5.1 MG/DL (2.6-7.2) Calcium Level 8.6 MG/DL (8.5-10.1) Phosphorus Level 4.2 MG/DL (2.5-4.9) Magnesium Level 2.1 MG/DL (1.8-2.4) Total Bilirubin 0.5 MG/DL (0.2-1.0) Aspartate Amino Transf (AST/SGOT) 62 U/L (15-37) H Alanine Aminotransferase (ALT/SGPT) 83 U/L (12-78) H Alkaline Phosphatase 102 U/L (46-116) Total Creatine Kinase 324 U/L (26-308) H C-Reactive Protein, Quantitative 35.5 mg/dL (0.00-0.90) H Pro-B-Type Natriuretic Peptide > 48676 pg/mL (0-125) H Total Protein 6.4 G/DL (6.4-8.2) Albumin 1.7 G/DL (3.4-5.0) L Globulin 4.7 g/dL Albumin/Globulin Ratio 0.4 (1.0-2.7) L Arterial Blood pH 7.358 (7.350-7.450) Arterial Blood Partial Pressure CO2 36.0 mmHg (35.0-45.0) Arterial Blood Partial Pressure O2 56.8 mmHg (75.0-100.0) L Arterial Blood HCO3 19.8 mmol/L (22.0-26.0) L Arterial Blood Oxygen Saturation 86.9 % (95-100) *L Arterial Blood Base Excess -5.2 (-2-2) L Garry Test Positive Plan Problems: (1) Septic shock Assessment & Plan: Patient in septic shock prior central line and pressors intubated on vent support in the intensive care unit tachycardic. Renal insufficiency requiring hemodialysis. Temporary hemodialysis catheter indicated and recommended Please see procedure note Dialysis as per nephrology IV antibiotics post per infectious disease Dressing changes as per protocol We will monitor site for hematoma or infection No further acute surgical intervention recommended at this time will follow with recommendations thank you for let me participate patient's care (2) Acute respiratory failure Assessment & Plan: DAILY ESTIMATED NEEDS: Needs based on Critical care, sepsis 75kg adj 22-28 kcals/kg 3932-9584 total kcals 1.2-2 g protein/kg 90-150 g total protein 25-30 mL/kg 4468-2497 total fluid mLs NUTRITION DIAGNOSIS: Swallowing difficulty r/t resp status as evidenced by septic shock now s/p intubation, w/ NGT, NPO at this time. ENTERAL NUTRITION RECOMMENDATIONS: Nepro @40ml/hr x24 hrs + Prosource BID to provide 960ml, 78g + 22 g pro, 698ml free H2O - As medically appropriate, rec non oral feeds via NGT - Start Nepro @20ml/hr for 6 hrs. Advance as tolerated 10ml/hr q4-6 hrs to goal. - Add Prosource BID to better meet est pro needs - Flush per . HOB over 30 degrees -------- ADDITIONAL RECOMMENDATIONS: 1) Tf recs as above, feed as medically able 2) Ad PROSOURCE VIA NGT BID to better meet est pro needs 3) Per SNF: 69inches tall, last wt of 210 lbs (2/3) -> rec weekly calibrated bed scale wts 4) [employer]PERATOR eval upon extubation (3) Sepsis (4) History of left below knee amputation Assessment & Plan: Wound stable dressings intact elevate with Ranjit Horton Nov 28, 2019 14:02
[2019-11-28] MEDS ORDERED: Etomidate 40mg/20ml Inj IV ONE (15:07)
[2019-11-28] MEDS ORDERED: Rocuronium Bromide 50mg/5ml Inj IV ONE (15:07)
--- NOTE | 2019-11-28 16:00 | NUR ---
NURSE NOTES: Patient remains alert to name, place, and purpose. Patient denies pain at this time. Patient remains orally intubated with size 7.5 ET tube with 24cm. Ventilator setting AC 20, tidal volume 600, FiO2 40%, PEEP 10. NO sign of acute distress. Nasal gastric tube of the right nares remains at 75cm, verified by chest x-ray and running Nepro at 40mL/hr. Cruz remains patent, asymptomatic, and draining straw yellow urine at 50mL/hr. Pressure release mattress still has not arrived. Will follow up. Right femoral Chris catheter remains patent, asymptomatic, and dressing intact. Right internal jugular triple lumen catheter remains patent, asymptomatic, dressing dry and intact, and saline locked. Patient bed in low position with bed alarm on and call light in reach at this time. Oral care and repositioning done at this time.
--- NOTE | 2019-11-28 17:41 | Internal Med Progress Note ---
Subjective Date of Service: Nov 28, 2019 Physician Name Sidney Galaviz Attending Physician Cezar Ceja MD Current Medications Medications (Trade) Dose Ordered Sig/Valeriano Route PRN Reason Start Time Stop Time Status Last Admin Dose Admin Acetaminophen (Tylenol) 650 mg Q4H PRN ORAL FEVER 11/24/19 13:30 12/24/19 13:29 11/28/19 14:49 Albuterol/ Ipratropium (Albuterol/ Ipratropium) 3 ml Q4H PRN HHN Shortness of Breath 11/24/19 13:30 11/29/19 13:29 11/24/19 14:46 Carvedilol (Coreg) 6.25 mg EVERY 12 HOURS NG 11/28/19 21:00 12/28/19 20:59 Cefepime HCl 2 gm/ Dextrose 110 ml @ 220 mls/hr Q24H IV 11/24/19 21:00 12/01/19 20:59 11/27/19 20:40 Chlorhexidine Gluconate (Katia-Hex 2%) 1 applic DAILY@2000 TOPIC 11/25/19 20:00 12/25/19 19:59 11/27/19 20:39 Dextrose (Dextrose 50%) 25 ml Q30M PRN IV Hypoglycemia 11/24/19 13:30 12/24/19 13:29 Dextrose (Dextrose 50%) 50 ml Q30M PRN IV Hypoglycemia 11/24/19 13:30 12/24/19 13:29 Fentanyl Citrate 2500 mcg/Sodium Chloride 250 ml @ 0 mls/hr Q24H IV 11/24/19 20:00 12/01/19 19:59 11/24/19 19:54 Folic Acid (Folate) 5 mg DAILY GT 11/27/19 09:00 12/27/19 08:59 11/28/19 09:30 Heparin Sodium (Porcine) (Heparin 5000 units/ml) 5,000 units EVERY 12 HOURS SUBQ 11/24/19 21:00 12/24/19 20:59 11/28/19 09:38 Hydralazine HCl (Apresoline) 25 mg EVERY 8 HOURS ORAL 11/28/19 09:15 12/28/19 09:14 11/28/19 14:48 Insulin Aspart (NovoLOG) BEFORE MEALS AND HS SUBQ 11/24/19 16:30 12/24/19 16:29 11/28/19 16:30 Isosorbide Dinitrate (Isordil) 10 mg Q6HR ORAL 11/28/19 12:00 12/28/19 11:59 11/28/19 12:29 Levofloxacin (Levaquin) 500 mg Q48H ORAL 11/27/19 13:00 12/02/19 12:59 11/27/19 13:36 Lorazepam (Ativan 2mg/ml 1ml) 2 mg Q4H PRN IV For Anxiety 11/24/19 15:15 12/01/19 15:14 11/27/19 18:03 Morphine Sulfate (Morphine Sulfate) 4 mg Q4H PRN IVP For Pain 11/24/19 15:15 12/01/19 15:14 11/27/19 20:41 Nitroglycerin (Ntg) 0.4 mg Q5M PRN SL Prn Chest Pain 11/24/19 09:30 12/24/19 09:29 11/24/19 09:23 Norepinephrine Bitartrate 8 mg/ Dextrose 500 ml @ 0 mls/hr Q24H IV 11/25/19 04:30 12/25/19 04:29 11/25/19 04:54 Ondansetron HCl (Zofran) 4 mg Q6H PRN IVP Nausea & Vomiting 11/24/19 13:30 12/24/19 13:29 Oseltamivir Phosphate (Tamiflu) 30 mg DAILY ORAL 11/25/19 13:00 11/30/19 12:59 11/28/19 09:31 Pantoprazole (Protonix) 40 mg Q12HR IV 11/25/19 21:00 12/25/19 08:59 11/28/19 09:30 Polyethylene Glycol (Miralax) 17 gm DAILYPRN PRN ORAL Constipation 11/24/19 13:30 12/24/19 13:29 Promethazine HCl/ Codeine (Phenergan with Codeine) 5 ml Q4H PRN ORAL For Cough 11/24/19 13:30 12/24/19 13:29 Vancomycin HCl (Vanco rx to dose) 1 ea DAILY PRN MISC . 11/24/19 13:30 12/24/19 13:29 Allergies: Coded Allergies: No Known Allergies (Unverified , 11/24/19) ROS Limited/Unobtainable: Yes Subjective 59 YO M admitted with respirtory failure. Cover for Int Qamar-Dr Ceja. Intubated and sedated. ICU. Objective Last Vital Signs Date Time Temp Pulse Resp B/P (MAP) Pulse Ox O2 Delivery O2 Flow Rate FiO2 11/28/19 17:00 86 20 145/73 (97) 100 11/28/19 16:35 35 11/28/19 16:00 98.8 11/28/19 16:00 Mechanical Ventilator 11/27/19 20:00 100.0 Laboratory Tests Test 11/28/19 04:30 11/28/19 11:15 White Blood Count 12.4 K/UL (4.8-10.8) H Red Blood Count 2.60 M/UL (4.70-6.10) L Hemoglobin 7.6 G/DL (14.2-18.0) L Hematocrit 22.0 % (42.0-52.0) L Mean Corpuscular Volume 85 FL (80-99) Mean Corpuscular Hemoglobin 29.2 PG (27.0-31.0) Mean Corpuscular Hemoglobin Concent 34.5 G/DL (32.0-36.0) Red Cell Distribution Width 14.5 % (11.6-14.8) Platelet Count 226 K/UL (150-450) Mean Platelet Volume 4.9 FL (6.5-10.1) L Neutrophils (%) (Auto) % (45.0-75.0) Lymphocytes (%) (Auto) % (20.0-45.0) Monocytes (%) (Auto) % (1.0-10.0) Eosinophils (%) (Auto) % (0.0-3.0) Basophils (%) (Auto) % (0.0-2.0) Differential Total Cells Counted 100 Neutrophils % (Manual) 89 % (45-75) H Lymphocytes % (Manual) 6 % (20-45) L Monocytes % (Manual) 5 % (1-10) Eosinophils % (Manual) 0 % (0-3) Basophils % (Manual) 0 % (0-2) Band Neutrophils 0 % (0-8) Platelet Estimate Adequate Platelet Morphology Normal Hypochromasia 1+ Anisocytosis 1+ Sodium Level 139 MMOL/L (136-145) Potassium Level 3.9 MMOL/L (3.5-5.1) Chloride Level 105 MMOL/L (98-107) Carbon Dioxide Level 22 MMOL/L (21-32) Anion Gap 12 mmol/L (5-15) Blood Urea Nitrogen 96 mg/dL (7-18) H Creatinine 4.8 MG/DL (0.55-1.30) H Estimat Glomerular Filtration Rate 15.3 mL/min (>60) Glucose Level 208 MG/DL (74-106) H Uric Acid 5.1 MG/DL (2.6-7.2) Calcium Level 8.6 MG/DL (8.5-10.1) Phosphorus Level 4.2 MG/DL (2.5-4.9) Magnesium Level 2.1 MG/DL (1.8-2.4) Total Bilirubin 0.5 MG/DL (0.2-1.0) Aspartate Amino Transf (AST/SGOT) 62 U/L (15-37) H Alanine Aminotransferase (ALT/SGPT) 83 U/L (12-78) H Alkaline Phosphatase 102 U/L (46-116) Total Creatine Kinase 324 U/L (26-308) H C-Reactive Protein, Quantitative 35.5 mg/dL (0.00-0.90) H Pro-B-Type Natriuretic Peptide > 55561 pg/mL (0-125) H Total Protein 6.4 G/DL (6.4-8.2) Albumin 1.7 G/DL (3.4-5.0) L Globulin 4.7 g/dL Albumin/Globulin Ratio 0.4 (1.0-2.7) L Arterial Blood pH 7.358 (7.350-7.450) Arterial Blood Partial Pressure CO2 36.0 mmHg (35.0-45.0) Arterial Blood Partial Pressure O2 56.8 mmHg (75.0-100.0) L Arterial Blood HCO3 19.8 mmol/L (22.0-26.0) L Arterial Blood Oxygen Saturation 86.9 % (95-100) *L Arterial Blood Base Excess -5.2 (-2-2) L Garry Test Positive Intake and Output 11/27/19 11/28/19 19:00 07:00 Intake Total 2970 ml 1290 ml Output Total 250 ml 240 ml Balance 2720 ml 1050 ml Intake Free Water 100 ml IV Total 600 ml 710 ml Tube Feeding 320 ml 480 ml Hemodialysis 2000 ml Other 50 ml Output Urine Total 250 ml 240 ml Objective PHYSICAL EXAMINATION: GENERAL: The patient is a well-developed and well-nourished male, in moderate respiratory distress. HEENT: Eyes, pupils are equal and responsive to light and accommodation. Extraocular movements are intact. NECK: Supple without lymphadenopathy. CHEST: Mechanical Vent; Mechanical breath sounds, otherwise without wheezes or rales. CARDIOVASCULAR: Regular rate. S1 and S2 normal without murmurs, rubs, or gallops. ABDOMEN: Soft, nontender, and nondistended. Positive bowel sounds. No evidence of hepatosplenomegaly. Currently, no rebound or guarding noted. EXTREMITIES: Negative for clubbing, cyanosis, or edema. RECTAL/GENITAL: Refused. NEUROLOGIC: Cranial nerves II through XII are grossly intact without focal deficits. Assessment/Plan Assessment/Plan ASSESSMENT: This is a 59-year-old male. 1. Respiratory failure. 2. Pneumonia. 3. Probable sepsis. 4. Diabetes type 2. 5. Hypertension. 6. Hypercholesterolemia. TREATMENT: 1. Respiratory failure/pneumonia. The patient is currently in intubated in the intensive care unit. A Pulmonary consultation has been obtained with Dr. Brandy Milton. ABX=vancomycin, levaquin and cefepime to cover healthcare-associated pneumonia. Continue tamiflu per ID=Dr Andrade. We will follow recommendations of Pulmonary. Sputum cultures are pending at this time. 2. Probable sepsis. Blood cultures are pending. As above, the patient has been placed empirically on vancomycin and cefepime. 3. Diabetes type 2. A NovoLog sliding scale has been instituted. 4. Hypertension. The patient is currently hypotensive. Hold antihypertensive medication. 5. Hypercholesterolemia. Continue atorvastatin as above. Sidney Galaviz MD Nov 28, 2019 17:41
--- NOTE | 2019-11-28 18:00 | NUR ---
NURSE NOTES: Patient vital signs stable. Blood pressure 130/65. Awaiting dialysis nurse. One PRBC ordered by Dr Sidhu to be given during HD. Consent signed by patient's daughter via telephone consent. Type and screen drawn. Patient oral care performed, and patient repositioned. Bed in low position with call light in reach. Will continue to monitor.
--- NOTE | 2019-11-28 18:45 | NUR ---
NURSE NOTES: Hemodialysis nurse has arrived on the unit. Notified her of order for one PRBC blood transfusion during dialysis.
--- NOTE | 2019-11-28 18:59 | NUR ---
RESPIRATORY NOTE: Received pt on AC 20, 600VT, 35%, PEEP +10. Pt intubated w/ ETT 7.5 @ 24cm lipline, secured by anchorfast. Pt is awake, follows commands. B/S maria de jesus. clear, sxn minimal amounts of thin, clear/white secretions. No hand restraints, pt understands not to touch any of his tubes/lines per bedside RN. Vent plugged into red outlet, ambubag at bedside. Pt in no apparent distress at this time. Will continue to monitor pt.
--- NOTE | 2019-11-28 19:30 | NUR ---
HAND-OFF: Report given to YUKI Mullen. patient on hemodialysis at this time. Endorsed to follow up.
--- NOTE | 2019-11-28 19:33 | NUR ---
NURSE NOTES: SBAR from David RN. Patient is alert and oriented to name, purpose, and place. Patient is currently undergoing dialysis and tolerating well. Patient is orally intubated size 7.5 and 24cm at the lower lip line. AC 20, 600tv, 40% and peep of 10. Patient is tolerating current ventilator settings. Patient is not under any distress at this time and make his needs known. There is an NGT on the right nare and receiving Nepro at 40ml/hr. Patient has a quiñones catheter that is hanging below the waist. Patient has wounds, see WCP. Patient has a left BKA. Right IJ TLC noted infusing NS TKO and a right Chris catheter for HD access with a pigtail for IV access. Patient is calm and collective at this time and vitals are currently stable while receiving dialysis. Safety measures are in place and call light is within reach. Will continue to monitor.
--- NOTE | 2019-11-28 19:50 | NUR ---
NURSE NOTES: PRBC finished infusing, HD still ongoing. No adverse reactions observed.
[2019-11-28] MEDS: fentaNYL Citrate 2500mcg in NS 250ml IV SCH (20:00)
--- NOTE | 2019-11-28 20:38 | NUR ---
NURSE NOTES: HD complete, 2000ml removed. Patient tolerated HD, vitals remains stable Repositioned Prosource given Oral care given All due meds given NAD at this time Patients temperature is 99.7F Fan at bedside.
[2019-11-28] MEDS: Dyna-Hex 2% Top Sol 2oz TOPIC SCH (21:00)
[2019-11-28] MEDS: Carvedilol 6.25mg Tab NG SCH (21:02)
[2019-11-28] MEDS: Cefepime HCl 2 GM in D5W 110 ML IV SCH (21:02)
--- NOTE | 2019-11-28 22:00 | NUR ---
NURSE NOTES: Repositioned Oral care given Vitals remains stable Awake and alert at this time.
[2019-11-29] VITALS (24 sets, daily range): BP systolic 123–156; BP diastolic 51–82
--- NOTE | 2019-11-29 | NUR ---
NURSE NOTES: Repositioned Oral care given NAD temp is 98.8F Vitals remains stable Patient is awake and alert.
--- NOTE | 2019-11-29 02:00 | NUR ---
NURSE NOTES: Repositioned Oral care performed VS remains stable Awake and oriented NAD at this time.
--- NOTE | 2019-11-29 03:30 | NUR ---
NURSE NOTES: Sputum cultures collected and sent to lab.
--- NOTE | 2019-11-29 04:27 | NUR ---
NURSE NOTES: Sponge bath given Oral care provided Repositioned Remains alert, oriented and cooperative VSS temp is 99.5f (ax)
[2019-11-29 05:36] LABS: HEMATOCRIT 23.5 % (42.0-52.0); HEMOGLOBIN 8.1 G/DL (14.2-18.0); MEAN CORPUSCULAR VOLUME 84 FL (80-99); PLATELET COUNT 159 K/UL (150-450); RED CELL DISTRIBUTION WIDTH 13.8 % (11.6-14.8); WHITE BLOOD COUNT 15.6 K/UL (4.8-10.8)
[2019-11-29] MEDS: NovoLOG Insulin Flexpen SUBQ SCH ×4 (05:57→20:43)
[2019-11-29] MEDS: HydrALAZINE 25mg tab ORAL SCH ×3 (05:58→22:31)
[2019-11-29 06:02] LABS: ALANINE AMINOTRANSFERASE 80 U/L (12-78); ALBUMIN 1.6 G/DL (3.4-5.0); ALBUMIN/GLOBULIN RATIO 0.3 (1.0-2.7); ALKALINE PHOSPHATASE 117 U/L (46-116); ANION GAP 11 mmol/L (5-15); ASPARTATE AMINO TRANSFERASE 57 U/L (15-37); BILIRUBIN,TOTAL 0.6 MG/DL (0.2-1.0); BLOOD UREA NITROGEN 83 mg/dL (7-18); CALCIUM 8.6 MG/DL (8.5-10.1); CARBON DIOXIDE 25 MMOL/L (21-32); CHLORIDE 105 MMOL/L (98-107); CREATININE 4.7 MG/DL (0.55-1.30); PHOSPHORUS 3.4 MG/DL (2.5-4.9); POTASSIUM 3.5 MMOL/L (3.5-5.1); SODIUM 141 MMOL/L (136-145)
--- NOTE | 2019-11-29 06:38 | NUR ---
NURSE NOTES: temperature is 99.3F Repositioned oral care VS remains stable awake and oriented
--- NOTE | 2019-11-29 07:00 | NUR ---
HAND-OFF: Report given to David MIRZA.
--- NOTE | 2019-11-29 07:07 | NUR ---
RESPIRATORY NOTE: received pt orally intubated and on current vent settings and in no apparent resp distress. pt ETt 7.5 placed 24cm at the lip. no redness or skin irritation seen around facial or mouth. alarms are audible and set. ambu bag at bedside. will cont to monitor throughout the day.
--- NOTE | 2019-11-29 07:08 | NUR ---
NURSE NOTES: Received patient from YUKI Mullen. Patient vital signs stable at this time except patient temperature is 99.4. Blood pressure 138/68, HR 84 in normal sinus rhythm, SpO2 100% on mechanical ventilator, and RR 20. Patient orally intubated with ET tube 7.5, 24cm at the lip line with ventilator setting of AC 20, tidal volume 600, FiO2 35%, and PEEP 10. Patient tolerating setting with no sign of acute distress. Patient tolerating weaning trial yesterday. Patient will be weaned again this morning. Will follow up with nutritional services cook regarding possible extubation post weaning trial today. Patient has right nares NGT that is patent, asymptomatic, and re-verified with auscultation/aspiration at this time. Nepro tube feeding running at 40mL/hr at this time with no residual noted. Patient has generalized edema with +2 pitting on right leg and foot. Left BKA noted wth healed stump. Patient has sacral historical healed wound that has opened up a small amount in the middle. Wound covered with optifoam and dry/intact. Patient has right femoral Chris catheter for dialysis that is asymptomatic with dressing dry and intact. Patient has right internal jugular triple lumen catheter that is patent, asymptomatic, and saline locked at this time. Dressing dry/intact. Patient has a quiñones for urine retention that is patent and draining pale yellow urine at this time. Patient has an order for low air loss mattress. Re-ordered from central supply this morning. Will await arrival of mattress overlay. Patient bed in low position with bed alarm on and call light in reach at this time. Oral care and repositioning done. Will continue to monitor.
--- NOTE | 2019-11-29 07:45 | NUR ---
NURSE NOTES: Patient tube feeding off at this time for weaning trial. Patient on CPAP with pressure support of 8 and PEEP 5. Patient tolerating with SpO2 100% and RR 16. Will continue to monitor.
[2019-11-29] MEDS: Acetaminophen 650mg/20.3ml NG PRN ×2 (08:12→21:04)
[2019-11-29] MEDS: Pantoprazole Inj IV SCH ×2 (08:42→20:41)
[2019-11-29] MEDS: Carvedilol 6.25mg Tab NG SCH ×2 (08:43→21:04)
[2019-11-29] MEDS: Heparin 5000 units/ml inj SUBQ SCH ×2 (08:51→20:46)
--- NOTE | 2019-11-29 08:51 | NUR ---
RESPIRATORY NOTE: placed pt on CPAP PS 8, fio2 35% with peep 5+ at 0740. pt tolerating well. no signs of resp distress. ABG taken and will cont to monitor. RN aware.
--- NOTE | 2019-11-29 09:40 | NUR ---
RADIOLOGY DEPT., CHEST X-RAY DONE.-P.DYE
--- NOTE | 2019-11-29 10:26 | Pulmonolgy Critical Care Note ---
Critical Care - Asmt/Plan Problems: (1) Acute respiratory failure (2) Septic shock (3) HCAP (healthcare-associated pneumonia) (4) Chronic systolic heart failure (5) Chronic kidney disease, stage 3 (6) Diabetes mellitus (7) History of hypertension (8) History of gout (9) History of left below knee amputation Respiratory: monitor respiratory rate, adjust FIO2, CXR Cardiac: continue to monitor HR/BP Renal: F/U I&O, other - HD today Infectious Disease: check cultures Endocrine: monitor blood sugar Hematologic: monitor H/H Neurologic: PRN Ativan Disposition: keep in ICU Notes Reviewed: acid patroller, cardio Discussed with: nurses, consultants, comp field case managervessel manager - Objective Last 24 Hour Vital Signs Date Time Temp Pulse Resp B/P (MAP) Pulse Ox O2 Delivery O2 Flow Rate FiO2 11/29/19 10:03 80 16 127/56 (79) 100 11/29/19 09:00 81 17 129/51 (77) 100 11/29/19 08:47 100 11/29/19 08:47 97 21 35 11/29/19 08:43 89 135/56 11/29/19 08:00 35 11/29/19 08:00 99.4 87 19 138/66 (90) 100 11/29/19 08:00 Mechanical Ventilator 11/29/19 08:00 87 11/29/19 07:40 88 22 35 11/29/19 07:06 86 20 35 11/29/19 07:00 87 23 138/68 (91) 100 11/29/19 06:00 99.3 90 23 129/72 (91) 100 11/29/19 05:58 137/66 11/29/19 05:58 137/66 11/29/19 05:10 93 22 35 11/29/19 05:00 90 21 137/66 (89) 100 11/29/19 04:30 144/62 11/29/19 04:00 88 11/29/19 04:00 99.5 90 21 144/62 (89) 100 11/29/19 04:00 Mechanical Ventilator 11/29/19 04:00 35 11/29/19 03:15 90 20 35 11/29/19 03:00 89 13 139/62 (87) 100 11/29/19 02:00 89 13 143/66 (91) 100 11/29/19 01:00 88 20 143/66 (91) 100 11/29/19 00:51 88 20 35 11/29/19 00:29 146/67 11/29/19 00:00 35 11/29/19 00:00 92 11/29/19 00:00 98.8 88 20 146/67 (93) 100 11/29/19 00:00 Mechanical Ventilator 11/28/19 23:00 90 15 142/69 (93) 100 11/28/19 22:50 92 26 35 11/28/19 22:00 93 17 146/61 (89) 100 11/28/19 21:03 158/68 11/28/19 21:02 102 158/68 11/28/19 21:00 104 20 158/68 (98) 100 11/28/19 20:46 100 26 35 11/28/19 20:00 Mechanical Ventilator 11/28/19 20:00 89 11/28/19 20:00 99.7 96 20 143/80 (101) 100 11/28/19 20:00 35 11/28/19 19:00 93 19 145/68 (93) 100 11/28/19 18:57 91 23 35 11/28/19 18:00 90 21 123/63 (83) 100 11/28/19 17:54 152/64 11/28/19 17:00 86 20 145/73 (97) 100 11/28/19 16:35 86 23 35 11/28/19 16:00 98.8 87 19 134/62 (86) 100 11/28/19 16:00 87 11/28/19 16:00 Mechanical Ventilator 11/28/19 15:45 40 11/28/19 15:20 86 24 35 11/28/19 15:00 87 16 143/72 (95) 100 11/28/19 14:48 140/63 11/28/19 14:00 92 19 141/66 (91) 100 11/28/19 13:25 97 20 35 11/28/19 13:00 99.2 97 20 157/72 (100) 100 11/28/19 13:00 40 11/28/19 12:29 149/68 11/28/19 12:00 35 11/28/19 12:00 97 21 157/72 (100) 100 11/28/19 12:00 Mechanical Ventilator 11/28/19 12:00 96 11/28/19 11:23 98 155/70 11/28/19 11:04 97 20 35 11/28/19 11:00 99 18 155/70 (98) 100 Status: awake Condition: improving HEENT: atraumatic Lungs: clear Heart: HR/BP stable Abdomen: soft Extremities: no C/C/E Micro: Microbiology Date/Time Source Procedure Growth Status 11/27/19 14:45 Blood Blood Culture - Preliminary NO GROWTH AFTER 24 HOURS Resulted 11/27/19 14:00 Blood Blood Culture - Preliminary Resulted Accucheck: 176 Critical Care - Subjective ROS Limited/Unobtainable: Yes Interval Events: awake, doing better FI02: 35 Vent Support Breath Rate: 20 Vent Support Mode: CPAP Vent Tidal Volume: 600 Sputum Amount: Scant PEEP: 5.0 PIP: 14 Tube Feeding Amount: 0 I&O: Intake and Output 11/28/19 11/29/19 19:00 07:00 Intake Total 510 ml 2700 ml Output Total 525 ml 215 ml Balance -15 ml 2485 ml Intake Free Water 110 ml IV Total 150 ml 110 ml Tube Feeding 360 ml 480 ml Hemodialysis 2000 ml Output Urine Total 525 ml 215 ml CXR: pulmonary edema resolved ET-Tube: 7.5 ET Position: 24 Labs: Laboratory Tests Test 11/28/19 11:15 11/29/19 04:30 11/29/19 07:26 Arterial Blood pH 7.358 (7.350-7.450) 7.461 (7.350-7.450) Arterial Blood Partial Pressure CO2 36.0 mmHg (35.0-45.0) 32.4 mmHg (35.0-45.0) L Arterial Blood Partial Pressure O2 56.8 mmHg (75.0-100.0) L 157.3 mmHg (75.0-100.0) H Arterial Blood HCO3 19.8 mmol/L (22.0-26.0) L 22.6 mmol/L (22.0-26.0) Arterial Blood Oxygen Saturation 86.9 % (95-100) *L 98.6 % (95-100) Arterial Blood Base Excess -5.2 (-2-2) L -0.9 (-2-2) Garry Test Positive Positive White Blood Count 15.6 K/UL (4.8-10.8) H Red Blood Count 2.80 M/UL (4.70-6.10) L Hemoglobin 8.1 G/DL (14.2-18.0) L Hematocrit 23.5 % (42.0-52.0) L Mean Corpuscular Volume 84 FL (80-99) Mean Corpuscular Hemoglobin 29.2 PG (27.0-31.0) Mean Corpuscular Hemoglobin Concent 34.6 G/DL (32.0-36.0) Red Cell Distribution Width 13.8 % (11.6-14.8) Platelet Count 159 K/UL (150-450) Mean Platelet Volume 5.0 FL (6.5-10.1) L Neutrophils (%) (Auto) % (45.0-75.0) Lymphocytes (%) (Auto) % (20.0-45.0) Monocytes (%) (Auto) % (1.0-10.0) Eosinophils (%) (Auto) % (0.0-3.0) Basophils (%) (Auto) % (0.0-2.0) Differential Total Cells Counted 100 Neutrophils % (Manual) 89 % (45-75) H Lymphocytes % (Manual) 3 % (20-45) L Monocytes % (Manual) 7 % (1-10) Eosinophils % (Manual) 1 % (0-3) Basophils % (Manual) 0 % (0-2) Band Neutrophils 0 % (0-8) Platelet Estimate Adequate Platelet Morphology Normal Sodium Level 141 MMOL/L (136-145) Potassium Level 3.5 MMOL/L (3.5-5.1) Chloride Level 105 MMOL/L (98-107) Carbon Dioxide Level 25 MMOL/L (21-32) Anion Gap 11 mmol/L (5-15) Blood Urea Nitrogen 83 mg/dL (7-18) H Creatinine 4.7 MG/DL (0.55-1.30) H Estimat Glomerular Filtration Rate 15.6 mL/min (>60) Glucose Level 195 MG/DL (74-106) H Uric Acid 4.2 MG/DL (2.6-7.2) Calcium Level 8.6 MG/DL (8.5-10.1) Phosphorus Level 3.4 MG/DL (2.5-4.9) Magnesium Level 2.1 MG/DL (1.8-2.4) Total Bilirubin 0.6 MG/DL (0.2-1.0) Aspartate Amino Transf (AST/SGOT) 57 U/L (15-37) H Alanine Aminotransferase (ALT/SGPT) 80 U/L (12-78) H Alkaline Phosphatase 117 U/L (46-116) H Troponin I 0.158 ng/mL (0.000-0.056) C-Reactive Protein, Quantitative 5.5 mg/dL (0.00-0.90) H Pro-B-Type Natriuretic Peptide 37569 pg/mL (0-125) H Total Protein 6.3 G/DL (6.4-8.2) L Albumin 1.6 G/DL (3.4-5.0) L Globulin 4.7 g/dL Albumin/Globulin Ratio 0.3 (1.0-2.7) L Brandy Milton MD Nov 29, 2019 10:26
--- NOTE | 2019-11-29 10:32 | Diagnostic Imaging Report ---
Indication: Dyspnea Technique: One view of the chest Comparison: none Findings: Stable satisfactory position of endotracheal tube. Improved position of nasogastric tube. Stable position of right jugular central venous catheter. Bilateral interstitial congestion persists, unchanged Impression: Improved position of enteric tube since previous day's exam. Otherwise unchanged
--- NOTE | 2019-11-29 10:47 | NUR ---
NURSE NOTES: Received verbal order from Dr Sidhu to call [facility] dialysis and report hemodialysis scheduled for today routine. Dr Sidhu reported that he would input the order for dialysis shortly. [facility] hemodialysis notified at 1047. Awaiting call back from HD nurse.
--- NOTE | 2019-11-29 10:50 | NUR ---
NURSE NOTES: Patient extubated at 1050. NO sign of acute distress. VS stable. Patient now on cool aerosol mask with 35% FiO2 at 10L. SpO2 100%. Will continue to monitor.
--- NOTE | 2019-11-29 10:52 | Infectious Diseases Prog Note ---
Assessment/Plan Assessment/Plan Assessment: Septic Shock- SP Pneumonia -11/29 sp cx p -11/24 u/a neg; ucx neg Bcx NTD influenza sc neg CXR: Bilateral dense consolidation, likely pneumonia. Pulmonary edema also possible. Correlate with clinical findings sp cx ordered,not done Gram positive bacteremia- contaminant vs real -11/27 Bcx 1/ GPC Fever, SP Leukocytosis, increased ARDS Acute respiratory failure s/p intubation 11/24 GANGA on CKD; now on HD 11/27 Elevated LFTs Troponinemia Dm2 Gout s/p L BKA allergic rhinitis CAD s/p stent prosthetic AVR hx of esophagitis PVD chronic sCHF HLD HTN SNF resident Plan: -Continue empiric IV Vancomycin and Cefepime #6 pending sp cx -Continue empiric LEvaquin #6 for legionella pending test -continue empiric Tamiflu #5/7 despite neg screen test -f/u cx -Monitor CBC/CMP, temperatures -f/u sp cx -ICU/ETT care -aspiration precautions -Bcx x 2 (RIJ, peripheral) discussed with RN Thank you for this consultation. Will continue to follow along with you. Subjective Allergies: Coded Allergies: No Known Allergies (Unverified , 11/24/19) Subjective afebrile >72 hrs remains intubated wbc increased Objective Vital Signs Last 24 Hour Vital Signs Date Time Temp Pulse Resp B/P (MAP) Pulse Ox O2 Delivery O2 Flow Rate FiO2 11/29/19 10:03 80 16 127/56 (79) 100 11/29/19 09:00 81 17 129/51 (77) 100 11/29/19 08:47 100 11/29/19 08:47 97 21 35 11/29/19 08:43 89 135/56 11/29/19 08:00 35 11/29/19 08:00 99.4 87 19 138/66 (90) 100 11/29/19 08:00 Mechanical Ventilator 11/29/19 08:00 87 11/29/19 07:40 88 22 35 11/29/19 07:06 86 20 35 11/29/19 07:00 87 23 138/68 (91) 100 11/29/19 06:00 99.3 90 23 129/72 (91) 100 11/29/19 05:58 137/66 11/29/19 05:58 137/66 11/29/19 05:10 93 22 35 11/29/19 05:00 90 21 137/66 (89) 100 11/29/19 04:30 144/62 11/29/19 04:00 88 11/29/19 04:00 99.5 90 21 144/62 (89) 100 11/29/19 04:00 Mechanical Ventilator 11/29/19 04:00 35 11/29/19 03:15 90 20 35 11/29/19 03:00 89 13 139/62 (87) 100 11/29/19 02:00 89 13 143/66 (91) 100 11/29/19 01:00 88 20 143/66 (91) 100 11/29/19 00:51 88 20 35 11/29/19 00:29 146/67 11/29/19 00:00 35 11/29/19 00:00 92 11/29/19 00:00 98.8 88 20 146/67 (93) 100 11/29/19 00:00 Mechanical Ventilator 11/28/19 23:00 90 15 142/69 (93) 100 11/28/19 22:50 92 26 35 11/28/19 22:00 93 17 146/61 (89) 100 11/28/19 21:03 158/68 11/28/19 21:02 102 158/68 11/28/19 21:00 104 20 158/68 (98) 100 11/28/19 20:46 100 26 35 11/28/19 20:00 Mechanical Ventilator 11/28/19 20:00 89 11/28/19 20:00 99.7 96 20 143/80 (101) 100 11/28/19 20:00 35 11/28/19 19:00 93 19 145/68 (93) 100 11/28/19 18:57 91 23 35 11/28/19 18:00 90 21 123/63 (83) 100 11/28/19 17:54 152/64 11/28/19 17:00 86 20 145/73 (97) 100 11/28/19 16:35 86 23 35 11/28/19 16:00 98.8 87 19 134/62 (86) 100 11/28/19 16:00 87 11/28/19 16:00 Mechanical Ventilator 11/28/19 15:45 40 11/28/19 15:20 86 24 35 11/28/19 15:00 87 16 143/72 (95) 100 11/28/19 14:48 140/63 11/28/19 14:00 92 19 141/66 (91) 100 11/28/19 13:25 97 20 35 11/28/19 13:00 99.2 97 20 157/72 (100) 100 11/28/19 13:00 40 11/28/19 12:29 149/68 11/28/19 12:00 35 11/28/19 12:00 97 21 157/72 (100) 100 11/28/19 12:00 Mechanical Ventilator 11/28/19 12:00 96 11/28/19 11:23 98 155/70 11/28/19 11:04 97 20 35 11/28/19 11:00 99 18 155/70 (98) 100 Height (Feet): 5 Height (Inches): 8.00 Weight (Pounds): 240 Objective GENERAL: The patient is a well-developed and well-nourished male, in moderate respiratory distress. HEENT: Eyes, pupils are equal and responsive to light and accommodation. Extraocular movements are intact. NECK: Supple without lymphadenopathy. CHEST: Mechanical Vent; Mechanical breath sounds, otherwise without wheezes or rales. CARDIOVASCULAR: Regular rate. S1 and S2 normal without murmurs, rubs, or gallops. ABDOMEN: Soft, nontender, and nondistended. Positive bowel sounds. No evidence of hepatosplenomegaly. Currently, no rebound or guarding noted. EXTREMITIES: Negative for clubbing, cyanosis, or edema. Microbiology Date/Time Source Procedure Growth Status 11/27/19 14:45 Blood Blood Culture - Preliminary NO GROWTH AFTER 24 HOURS Resulted 11/27/19 14:00 Blood Blood Culture - Preliminary Resulted Laboratory Tests Test 11/28/19 11:15 11/29/19 04:30 11/29/19 07:26 Arterial Blood pH 7.358 (7.350-7.450) 7.461 (7.350-7.450) Arterial Blood Partial Pressure CO2 36.0 mmHg (35.0-45.0) 32.4 mmHg (35.0-45.0) L Arterial Blood Partial Pressure O2 56.8 mmHg (75.0-100.0) L 157.3 mmHg (75.0-100.0) H Arterial Blood HCO3 19.8 mmol/L (22.0-26.0) L 22.6 mmol/L (22.0-26.0) Arterial Blood Oxygen Saturation 86.9 % (95-100) *L 98.6 % (95-100) Arterial Blood Base Excess -5.2 (-2-2) L -0.9 (-2-2) Garry Test Positive Positive White Blood Count 15.6 K/UL (4.8-10.8) H Red Blood Count 2.80 M/UL (4.70-6.10) L Hemoglobin 8.1 G/DL (14.2-18.0) L Hematocrit 23.5 % (42.0-52.0) L Mean Corpuscular Volume 84 FL (80-99) Mean Corpuscular Hemoglobin 29.2 PG (27.0-31.0) Mean Corpuscular Hemoglobin Concent 34.6 G/DL (32.0-36.0) Red Cell Distribution Width 13.8 % (11.6-14.8) Platelet Count 159 K/UL (150-450) Mean Platelet Volume 5.0 FL (6.5-10.1) L Neutrophils (%) (Auto) % (45.0-75.0) Lymphocytes (%) (Auto) % (20.0-45.0) Monocytes (%) (Auto) % (1.0-10.0) Eosinophils (%) (Auto) % (0.0-3.0) Basophils (%) (Auto) % (0.0-2.0) Differential Total Cells Counted 100 Neutrophils % (Manual) 89 % (45-75) H Lymphocytes % (Manual) 3 % (20-45) L Monocytes % (Manual) 7 % (1-10) Eosinophils % (Manual) 1 % (0-3) Basophils % (Manual) 0 % (0-2) Band Neutrophils 0 % (0-8) Platelet Estimate Adequate Platelet Morphology Normal Sodium Level 141 MMOL/L (136-145) Potassium Level 3.5 MMOL/L (3.5-5.1) Chloride Level 105 MMOL/L (98-107) Carbon Dioxide Level 25 MMOL/L (21-32) Anion Gap 11 mmol/L (5-15) Blood Urea Nitrogen 83 mg/dL (7-18) H Creatinine 4.7 MG/DL (0.55-1.30) H Estimat Glomerular Filtration Rate 15.6 mL/min (>60) Glucose Level 195 MG/DL (74-106) H Uric Acid 4.2 MG/DL (2.6-7.2) Calcium Level 8.6 MG/DL (8.5-10.1) Phosphorus Level 3.4 MG/DL (2.5-4.9) Magnesium Level 2.1 MG/DL (1.8-2.4) Total Bilirubin 0.6 MG/DL (0.2-1.0) Aspartate Amino Transf (AST/SGOT) 57 U/L (15-37) H Alanine Aminotransferase (ALT/SGPT) 80 U/L (12-78) H Alkaline Phosphatase 117 U/L (46-116) H Troponin I 0.158 ng/mL (0.000-0.056) C-Reactive Protein, Quantitative 5.5 mg/dL (0.00-0.90) H Pro-B-Type Natriuretic Peptide 27434 pg/mL (0-125) H Total Protein 6.3 G/DL (6.4-8.2) L Albumin 1.6 G/DL (3.4-5.0) L Globulin 4.7 g/dL Albumin/Globulin Ratio 0.3 (1.0-2.7) L Current Medications Medications (Trade) Dose Ordered Sig/Valeriano Route PRN Reason Start Time Stop Time Status Last Admin Dose Admin Acetaminophen (Tylenol) 650 mg Q4H PRN NG Mild Pain/Temp > 100.5 11/29/19 08:00 12/29/19 07:59 11/29/19 08:12 Albuterol/ Ipratropium (Albuterol/ Ipratropium) 3 ml Q4H PRN HHN Shortness of Breath 11/24/19 13:30 11/29/19 13:29 11/24/19 14:46 Carvedilol (Coreg) 6.25 mg EVERY 12 HOURS NG 11/28/19 21:00 12/28/19 20:59 11/29/19 08:43 Cefepime HCl 2 gm/ Dextrose 110 ml @ 220 mls/hr Q24H IV 11/24/19 21:00 12/01/19 20:59 11/28/19 21:02 Chlorhexidine Gluconate (Katia-Hex 2%) 1 applic DAILY@2000 TOPIC 11/25/19 20:00 12/25/19 19:59 11/28/19 21:00 Dextrose (Dextrose 50%) 25 ml Q30M PRN IV Hypoglycemia 11/24/19 13:30 12/24/19 13:29 Dextrose (Dextrose 50%) 50 ml Q30M PRN IV Hypoglycemia 11/24/19 13:30 12/24/19 13:29 Fentanyl Citrate 2500 mcg/Sodium Chloride 250 ml @ 0 mls/hr Q24H IV 11/24/19 20:00 12/01/19 19:59 11/24/19 19:54 Folic Acid (Folate) 5 mg DAILY GT 11/27/19 09:00 12/27/19 08:59 11/29/19 08:43 Heparin Sodium (Porcine) (Heparin 5000 units/ml) 5,000 units EVERY 12 HOURS SUBQ 11/24/19 21:00 12/24/19 20:59 11/29/19 08:51 Hydralazine HCl (Apresoline) 25 mg EVERY 8 HOURS ORAL 11/28/19 09:15 12/28/19 09:14 11/29/19 05:58 Insulin Aspart (NovoLOG) BEFORE MEALS AND HS SUBQ 11/24/19 16:30 12/24/19 16:29 11/29/19 05:57 Isosorbide Dinitrate (Isordil) 10 mg Q6HR ORAL 11/28/19 12:00 12/28/19 11:59 11/29/19 05:58 Levofloxacin (Levaquin) 500 mg Q48H ORAL 11/27/19 13:00 12/02/19 12:59 11/27/19 13:36 Lorazepam (Ativan 2mg/ml 1ml) 2 mg Q4H PRN IV For Anxiety 11/24/19 15:15 12/01/19 15:14 11/27/19 18:03 Morphine Sulfate (Morphine Sulfate) 4 mg Q4H PRN IVP For Pain 11/24/19 15:15 12/01/19 15:14 11/27/19 20:41 Nitroglycerin (Ntg) 0.4 mg Q5M PRN SL Prn Chest Pain 11/24/19 09:30 3/14/20 09:29 11/24/19 09:23 Norepinephrine Bitartrate 8 mg/ Dextrose 500 ml @ 0 mls/hr Q24H IV 11/25/19 04:30 12/25/19 04:29 11/25/19 04:54 Ondansetron HCl (Zofran) 4 mg Q6H PRN IVP Nausea & Vomiting 11/24/19 13:30 12/24/19 13:29 Oseltamivir Phosphate (Tamiflu) 30 mg DAILY ORAL 11/25/19 13:00 12/01/19 12:59 11/29/19 08:43 Pantoprazole (Protonix) 40 mg Q12HR IV 11/25/19 21:00 12/25/19 08:59 11/29/19 08:42 Polyethylene Glycol (Miralax) 17 gm DAILYPRN PRN ORAL Constipation 11/24/19 13:30 12/24/19 13:29 Promethazine HCl/ Codeine (Phenergan with Codeine) 5 ml Q4H PRN ORAL For Cough 11/24/19 13:30 12/24/19 13:29 Vancomycin HCl (Vanco rx to dose) 1 ea DAILY PRN MISC . 11/24/19 13:30 12/24/19 13:29 Yojana Bennett M.D. Nov 29, 2019 10:52
--- NOTE | 2019-11-29 10:55 | NUR ---
RESPIRATORY NOTE: extubated pt at 1050 with no adverse reactions. placed on CA-35% with no stridor heard upon post extubation. instructed pt to practice deep breathing for lung expansion. will cont to monitor
--- NOTE | 2019-11-29 12:00 | NUR ---
NURSE NOTES: Patient vital signs stable at this time. Patient extubated at 1050. Patient on cool aerosol mask with 35% FiO2 and 10L. patient tolerating with no sign of distress. RR 20 and Spo2 100%. Right nares NGT that is patent, asymptomatic, and clamped. Tube feeding held for swallow evaluation. Patient has generalized edema with +2 pitting on right leg and foot. Patient has generalized non-pitting edema. Wounds covered with optifoam/dry/intact. Right femoral Chris catheter for dialysis remains asymptomatic with dressing dry and intact. Right internal jugular triple lumen catheter that is patent, asymptomatic, and saline locked at this time. Dressing dry/intact. Cruz for urine retention remains patent and draining yellow urine at this time. Awaiting arrival of mattress overlay. Patient bed in low position with bed alarm on and call light in reach at this time. Oral care and repositioning done. Will continue to monitor.
--- NOTE | 2019-11-29 12:43 | NUR ---
RESPIRATORY NOTE: unable to obtain ABG, YUKI raman
--- NOTE | 2019-11-29 12:43 | Surgery Progress Note ---
Surgery Progress Note Subjective Procedure Performed Right femoral temporary hemodialysis catheter insertion Symptoms: improved Additional Comments extubated talking comfortable Objective Last 24 Hour Vital Signs Date Time Temp Pulse Resp B/P (MAP) Pulse Ox O2 Delivery O2 Flow Rate FiO2 11/29/19 12:00 98.0 82 22 135/60 (85) 99 11/29/19 11:36 132/59 11/29/19 11:00 83 17 128/59 (82) 100 11/29/19 10:54 100 Cool Aerosol 10.0 35 11/29/19 10:53 Venturi Mask 10.0 35 11/29/19 10:03 80 16 127/56 (79) 100 11/29/19 09:00 81 17 129/51 (77) 100 11/29/19 08:47 100 11/29/19 08:47 97 21 35 11/29/19 08:43 89 135/56 11/29/19 08:00 35 11/29/19 08:00 99.4 87 19 138/66 (90) 100 11/29/19 08:00 Mechanical Ventilator 11/29/19 08:00 87 11/29/19 07:40 88 22 35 11/29/19 07:06 86 20 35 11/29/19 07:00 87 23 138/68 (91) 100 11/29/19 06:00 99.3 90 23 129/72 (91) 100 11/29/19 05:58 137/66 11/29/19 05:58 137/66 11/29/19 05:10 93 22 35 11/29/19 05:00 90 21 137/66 (89) 100 11/29/19 04:30 144/62 11/29/19 04:00 88 11/29/19 04:00 99.5 90 21 144/62 (89) 100 11/29/19 04:00 Mechanical Ventilator 11/29/19 04:00 35 11/29/19 03:15 90 20 35 11/29/19 03:00 89 13 139/62 (87) 100 11/29/19 02:00 89 13 143/66 (91) 100 11/29/19 01:00 88 20 143/66 (91) 100 11/29/19 00:51 88 20 35 11/29/19 00:29 146/67 11/29/19 00:00 35 11/29/19 00:00 92 2/18/20 00:00 98.8 88 20 146/67 (93) 100 11/29/19 00:00 Mechanical Ventilator 11/28/19 23:00 90 15 142/69 (93) 100 11/28/19 22:50 92 26 35 11/28/19 22:00 93 17 146/61 (89) 100 11/28/19 21:03 158/68 11/28/19 21:02 102 158/68 11/28/19 21:00 104 20 158/68 (98) 100 11/28/19 20:46 100 26 35 11/28/19 20:00 Mechanical Ventilator 11/28/19 20:00 89 11/28/19 20:00 99.7 96 20 143/80 (101) 100 11/28/19 20:00 35 11/28/19 19:00 93 19 145/68 (93) 100 11/28/19 18:57 91 23 35 11/28/19 18:00 90 21 123/63 (83) 100 11/28/19 17:54 152/64 11/28/19 17:00 86 20 145/73 (97) 100 11/28/19 16:35 86 23 35 11/28/19 16:00 98.8 87 19 134/62 (86) 100 11/28/19 16:00 87 11/28/19 16:00 Mechanical Ventilator 11/28/19 15:45 40 11/28/19 15:20 86 24 35 11/28/19 15:00 87 16 143/72 (95) 100 11/28/19 14:48 140/63 11/28/19 14:00 92 19 141/66 (91) 100 11/28/19 13:25 97 20 35 11/28/19 13:00 99.2 97 20 157/72 (100) 100 11/28/19 13:00 40 I&O Intake and Output 11/28/19 11/29/19 19:00 07:00 Intake Total 510 ml 2700 ml Output Total 525 ml 215 ml Balance -15 ml 2485 ml Intake Free Water 110 ml IV Total 150 ml 110 ml Tube Feeding 360 ml 480 ml Hemodialysis 2000 ml Output Urine Total 525 ml 215 ml Dressing: other Wound: other Drains: other Cardiovascular: RSR Respiratory: decreased breath sounds Abdomen: soft, present bowel sounds Extremities: no cyanosis Laboratory Tests Test 11/29/19 04:30 11/29/19 07:26 White Blood Count 15.6 K/UL (4.8-10.8) H Red Blood Count 2.80 M/UL (4.70-6.10) L Hemoglobin 8.1 G/DL (14.2-18.0) L Hematocrit 23.5 % (42.0-52.0) L Mean Corpuscular Volume 84 FL (80-99) Mean Corpuscular Hemoglobin 29.2 PG (27.0-31.0) Mean Corpuscular Hemoglobin Concent 34.6 G/DL (32.0-36.0) Red Cell Distribution Width 13.8 % (11.6-14.8) Platelet Count 159 K/UL (150-450) Mean Platelet Volume 5.0 FL (6.5-10.1) L Neutrophils (%) (Auto) % (45.0-75.0) Lymphocytes (%) (Auto) % (20.0-45.0) Monocytes (%) (Auto) % (1.0-10.0) Eosinophils (%) (Auto) % (0.0-3.0) Basophils (%) (Auto) % (0.0-2.0) Differential Total Cells Counted 100 Neutrophils % (Manual) 89 % (45-75) H Lymphocytes % (Manual) 3 % (20-45) L Monocytes % (Manual) 7 % (1-10) Eosinophils % (Manual) 1 % (0-3) Basophils % (Manual) 0 % (0-2) Band Neutrophils 0 % (0-8) Platelet Estimate Adequate Platelet Morphology Normal Sodium Level 141 MMOL/L (136-145) Potassium Level 3.5 MMOL/L (3.5-5.1) Chloride Level 105 MMOL/L (98-107) Carbon Dioxide Level 25 MMOL/L (21-32) Anion Gap 11 mmol/L (5-15) Blood Urea Nitrogen 83 mg/dL (7-18) H Creatinine 4.7 MG/DL (0.55-1.30) H Estimat Glomerular Filtration Rate 15.6 mL/min (>60) Glucose Level 195 MG/DL (74-106) H Uric Acid 4.2 MG/DL (2.6-7.2) Calcium Level 8.6 MG/DL (8.5-10.1) Phosphorus Level 3.4 MG/DL (2.5-4.9) Magnesium Level 2.1 MG/DL (1.8-2.4) Total Bilirubin 0.6 MG/DL (0.2-1.0) Aspartate Amino Transf (AST/SGOT) 57 U/L (15-37) H Alanine Aminotransferase (ALT/SGPT) 80 U/L (12-78) H Alkaline Phosphatase 117 U/L (46-116) H Troponin I 0.158 ng/mL (0.000-0.056) C-Reactive Protein, Quantitative 5.5 mg/dL (0.00-0.90) H Pro-B-Type Natriuretic Peptide 16727 pg/mL (0-125) H Total Protein 6.3 G/DL (6.4-8.2) L Albumin 1.6 G/DL (3.4-5.0) L Globulin 4.7 g/dL Albumin/Globulin Ratio 0.3 (1.0-2.7) L Arterial Blood pH 7.461 (7.350-7.450) Arterial Blood Partial Pressure CO2 32.4 mmHg (35.0-45.0) L Arterial Blood Partial Pressure O2 157.3 mmHg (75.0-100.0) H Arterial Blood HCO3 22.6 mmol/L (22.0-26.0) Arterial Blood Oxygen Saturation 98.6 % (95-100) Arterial Blood Base Excess -0.9 (-2-2) Garry Test Positive Plan Problems: (1) Septic shock Assessment & Plan: Patient in septic shock prior central line and pressors intubated on vent support in the intensive care unit tachycardic. Renal insufficiency requiring hemodialysis. Temporary hemodialysis catheter indicated and recommended Please see procedure note Dialysis as per nephrology IV antibiotics post per infectious disease Dressing changes as per protocol We will monitor site for hematoma or infection No further acute surgical intervention recommended at this time will follow with recommendations thank you for let me participate patient's care extubated improved (2) Acute respiratory failure Assessment & Plan: DAILY ESTIMATED NEEDS: Needs based on Critical care, sepsis 75kg adj 22-28 kcals/kg 8253-1932 total kcals 1.2-2 g protein/kg 90-150 g total protein 25-30 mL/kg 2116-1695 total fluid mLs NUTRITION DIAGNOSIS: Swallowing difficulty r/t resp status as evidenced by septic shock now s/p intubation, w/ NGT, NPO at this time. ENTERAL NUTRITION RECOMMENDATIONS: Nepro @40ml/hr x24 hrs + Prosource BID to provide 960ml, 78g + 22 g pro, 698ml free H2O - As medically appropriate, rec non oral feeds via NGT - Start Nepro @20ml/hr for 6 hrs. Advance as tolerated 10ml/hr q4-6 hrs to goal. - Add Prosource BID to better meet est pro needs - Flush per . 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
--- NOTE | 2019-11-29 12:48 | NUR ---
NURSE NOTES: Patient complaining of pain and requesting morphine. 4mg IVP PRN Q4Hr Morphine ordered for the patient. Patient extubated now and this is a high dose of morphine. Notified Dr. Milton and received order to change the order to Morphine 2mg IVP Q4H PRN. Order read back, verified, and placed.
--- NOTE | 2019-11-29 12:51 | Cardiology Progress Note ---
Assessment/Plan Assessment/Plan 1. Respiratory failure, probably pneumonia. 2. chf acute systolic 3. History of aortic valve replacement per records but no surgical scar on the chest wall.(pt denies avr) 4. History of coronary artery disease, unknown details. 5. Abnormal cardiac enzymes likely secondary to demand 6. septic shock 7. renal failure 8. metabolic respiratory acidosis 9. ARDS now just extubated looks better but now has crackles bilateral bases post on my exam cxr still show congestion i ma not able to review the study gettign daily dialysis on cm med may be in fure can use acei but for now isordil hydralazine combination labs ntoe d d/w rn d/w id on iv abx await identification of bacteria oxygenation better ards may be resolving but has chf now on exam need records form [facility] Subjective Cardiovascular: Denies: chest pain, lightheadedness, palpitations Respiratory: Reports: shortness of breath Gastrointestinal/Abdominal: Denies: abdominal pain Genitourinary: Denies: burning Objective Last 24 Hour Vital Signs Date Time Temp Pulse Resp B/P (MAP) Pulse Ox O2 Delivery O2 Flow Rate FiO2 11/29/19 12:00 98.0 82 22 135/60 (85) 99 11/29/19 11:36 132/59 11/29/19 11:00 83 17 128/59 (82) 100 11/29/19 10:54 100 Cool Aerosol 10.0 35 11/29/19 10:53 Venturi Mask 10.0 35 11/29/19 10:03 80 16 127/56 (79) 100 11/29/19 09:00 81 17 129/51 (77) 100 11/29/19 08:47 100 11/29/19 08:47 97 21 35 11/29/19 08:43 89 135/56 11/29/19 08:00 35 11/29/19 08:00 99.4 87 19 138/66 (90) 100 11/29/19 08:00 Mechanical Ventilator 11/29/19 08:00 87 11/29/19 07:40 88 22 35 11/29/19 07:06 86 20 35 11/29/19 07:00 87 23 138/68 (91) 100 11/29/19 06:00 99.3 90 23 129/72 (91) 100 11/29/19 05:58 137/66 11/29/19 05:58 137/66 11/29/19 05:10 93 22 35 11/29/19 05:00 90 21 137/66 (89) 100 11/29/19 04:30 144/62 11/29/19 04:00 88 11/29/19 04:00 99.5 90 21 144/62 (89) 100 11/29/19 04:00 Mechanical Ventilator 11/29/19 04:00 35 11/29/19 03:15 90 20 35 11/29/19 03:00 89 13 139/62 (87) 100 11/29/19 02:00 89 13 143/66 (91) 100 11/29/19 01:00 88 20 143/66 (91) 100 11/29/19 00:51 88 20 35 11/29/19 00:29 146/67 11/29/19 00:00 35 11/29/19 00:00 92 11/29/19 00:00 98.8 88 20 146/67 (93) 100 11/29/19 00:00 Mechanical Ventilator 11/28/19 23:00 90 15 142/69 (93) 100 11/28/19 22:50 92 26 35 11/28/19 22:00 93 17 146/61 (89) 100 11/28/19 21:03 158/68 11/28/19 21:02 102 158/68 11/28/19 21:00 104 20 158/68 (98) 100 11/28/19 20:46 100 26 35 11/28/19 20:00 Mechanical Ventilator 11/28/19 20:00 89 11/28/19 20:00 99.7 96 20 143/80 (101) 100 11/28/19 20:00 35 11/28/19 19:00 93 19 145/68 (93) 100 11/28/19 18:57 91 23 35 11/28/19 18:00 90 21 123/63 (83) 100 11/28/19 17:54 152/64 11/28/19 17:00 86 20 145/73 (97) 100 11/28/19 16:35 86 23 35 11/28/19 16:00 98.8 87 19 134/62 (86) 100 11/28/19 16:00 87 11/28/19 16:00 Mechanical Ventilator 11/28/19 15:45 40 11/28/19 15:20 86 24 35 11/28/19 15:00 87 16 143/72 (95) 100 11/28/19 14:48 140/63 11/28/19 14:00 92 19 141/66 (91) 100 11/28/19 13:25 97 20 35 11/28/19 13:00 99.2 97 20 157/72 (100) 100 11/28/19 13:00 40 General Appearance: no apparent distress, alert Neck: supple Respiratory/Chest: crackles/rales Abdomen: normal bowel sounds, non tender, soft Extremities: moderate edema Intake and Output 11/28/19 11/29/19 19:00 07:00 Intake Total 510 ml 2700 ml Output Total 525 ml 215 ml Balance -15 ml 2485 ml Intake Free Water 110 ml IV Total 150 ml 110 ml Tube Feeding 360 ml 480 ml Hemodialysis 2000 ml Output Urine Total 525 ml 215 ml Laboratory Tests Test 11/29/19 04:30 11/29/19 07:26 White Blood Count 15.6 K/UL (4.8-10.8) H Red Blood Count 2.80 M/UL (4.70-6.10) L Hemoglobin 8.1 G/DL (14.2-18.0) L Hematocrit 23.5 % (42.0-52.0) L Mean Corpuscular Volume 84 FL (80-99) Mean Corpuscular Hemoglobin 29.2 PG (27.0-31.0) Mean Corpuscular Hemoglobin Concent 34.6 G/DL (32.0-36.0) Red Cell Distribution Width 13.8 % (11.6-14.8) Platelet Count 159 K/UL (150-450) Mean Platelet Volume 5.0 FL (6.5-10.1) L Neutrophils (%) (Auto) % (45.0-75.0) Lymphocytes (%) (Auto) % (20.0-45.0) Monocytes (%) (Auto) % (1.0-10.0) Eosinophils (%) (Auto) % (0.0-3.0) Basophils (%) (Auto) % (0.0-2.0) Differential Total Cells Counted 100 Neutrophils % (Manual) 89 % (45-75) H Lymphocytes % (Manual) 3 % (20-45) L Monocytes % (Manual) 7 % (1-10) Eosinophils % (Manual) 1 % (0-3) Basophils % (Manual) 0 % (0-2) Band Neutrophils 0 % (0-8) Platelet Estimate Adequate Platelet Morphology Normal Sodium Level 141 MMOL/L (136-145) Potassium Level 3.5 MMOL/L (3.5-5.1) Chloride Level 105 MMOL/L (98-107) Carbon Dioxide Level 25 MMOL/L (21-32) Anion Gap 11 mmol/L (5-15) Blood Urea Nitrogen 83 mg/dL (7-18) H Creatinine 4.7 MG/DL (0.55-1.30) H Estimat Glomerular Filtration Rate 15.6 mL/min (>60) Glucose Level 195 MG/DL (74-106) H Uric Acid 4.2 MG/DL (2.6-7.2) Calcium Level 8.6 MG/DL (8.5-10.1) Phosphorus Level 3.4 MG/DL (2.5-4.9) Magnesium Level 2.1 MG/DL (1.8-2.4) Total Bilirubin 0.6 MG/DL (0.2-1.0) Aspartate Amino Transf (AST/SGOT) 57 U/L (15-37) H Alanine Aminotransferase (ALT/SGPT) 80 U/L (12-78) H Alkaline Phosphatase 117 U/L (46-116) H Troponin I 0.158 ng/mL (0.000-0.056) C-Reactive Protein, Quantitative 5.5 mg/dL (0.00-0.90) H Pro-B-Type Natriuretic Peptide 27139 pg/mL (0-125) H Total Protein 6.3 G/DL (6.4-8.2) L Albumin 1.6 G/DL (3.4-5.0) L Globulin 4.7 g/dL Albumin/Globulin Ratio 0.3 (1.0-2.7) L Arterial Blood pH 7.461 (7.350-7.450) Arterial Blood Partial Pressure CO2 32.4 mmHg (35.0-45.0) L Arterial Blood Partial Pressure O2 157.3 mmHg (75.0-100.0) H Arterial Blood HCO3 22.6 mmol/L (22.0-26.0) Arterial Blood Oxygen Saturation 98.6 % (95-100) Arterial Blood Base Excess -0.9 (-2-2) Garry Test Positive Microbiology Date/Time Source Procedure Growth Status 11/27/19 14:45 Blood Blood Culture - Preliminary NO GROWTH AFTER 24 HOURS Resulted 11/27/19 14:00 Blood Blood Culture - Preliminary Resulted Antonio Byrd MD Nov 29, 2019 12:51
--- NOTE | 2019-11-29 13:00 | NUR ---
NURSE NOTES: Noted Dr Byrd's other nursing order to request records from [facility] and [facility]. Request faxed over yesterday. Awaiting records requested. Addendum: 11/29/19 at 1906 by Joyce Hernandez RN Called to follow up. [facility] medical record reported that they would fax over the information shortly. Fax number for the unit given. [facility] medical record did not answer the phone. Message left. Awaiting call back.
[2019-11-29] MEDS: Morphine Sulfate 2mg/ml Inj(IV/IM USE ONLY) IVP PRN (13:28)
[2019-11-29] MEDS: Levofloxacin 500mg tab ORAL SCH (13:32)
--- NOTE | 2019-11-29 13:32 | NUR ---
NURSE NOTES: Notified Dr Byrd that patient has 3 blood pressure medications that were started yesterday and dialysis scheduled for this afternoon. Received order to hold hydralazine prior to dialysis. Will follow up.
--- NOTE | 2019-11-29 13:51 | Nephrology Progress Note ---
Assessment/Plan Problem List: (1) ARF (acute renal failure) (2) Acute respiratory failure (3) Septic shock (4) Anemia (5) History of hypertension (6) Diabetes mellitus (7) Acute on chronic systolic heart failure Assessment: ej Fx 40 Assessment Acute renal failure- ? Underlying CKD Respiratory failure Anemia Sepsis / Shock ? Pneumonia DM HTN by history Gout left BKA Cardiomyopathy - Ej Fx 40% Plan Plan: HD 11/27 done and 2 liters removed HD again 11/28 and today was transfused start coreg discussed with ICU speech clinician DC IV previously DC Hydrocortisone Antibiotics urine studies avoid nephrotoxics monitor renal parameters Anemia hairston per orders Subjective ROS Limited/Unobtainable: Yes Objective Objective Last 24 Hour Vital Signs Date Time Temp Pulse Resp B/P (MAP) Pulse Ox O2 Delivery O2 Flow Rate FiO2 11/29/19 13:32 141/61 11/29/19 13:00 86 20 141/61 (87) 95 11/29/19 12:00 85 11/29/19 12:00 98.0 82 22 135/60 (85) 99 11/29/19 12:00 10.0 35 11/29/19 12:00 Simple Mask 10.0 11/29/19 11:36 132/59 11/29/19 11:00 83 17 128/59 (82) 100 11/29/19 10:54 100 Cool Aerosol 10.0 35 11/29/19 10:53 Venturi Mask 10.0 35 11/29/19 10:03 80 16 127/56 (79) 100 11/29/19 09:00 81 17 129/51 (77) 100 11/29/19 08:47 100 11/29/19 08:47 97 21 35 11/29/19 08:43 89 135/56 11/29/19 08:00 35 11/29/19 08:00 99.4 87 19 138/66 (90) 100 11/29/19 08:00 Mechanical Ventilator 11/29/19 08:00 87 11/29/19 07:40 88 22 35 11/29/19 07:06 86 20 35 11/29/19 07:00 87 23 138/68 (91) 100 11/29/19 06:00 99.3 90 23 129/72 (91) 100 11/29/19 05:58 137/66 11/29/19 05:58 137/66 11/29/19 05:10 93 22 35 11/29/19 05:00 90 21 137/66 (89) 100 11/29/19 04:30 144/62 11/29/19 04:00 88 11/29/19 04:00 99.5 90 21 144/62 (89) 100 11/29/19 04:00 Mechanical Ventilator 11/29/19 04:00 35 11/29/19 03:15 90 20 35 11/29/19 03:00 89 13 139/62 (87) 100 11/29/19 02:00 89 13 143/66 (91) 100 11/29/19 01:00 88 20 143/66 (91) 100 11/29/19 00:51 88 20 35 11/29/19 00:29 146/67 11/29/19 00:00 35 11/29/19 00:00 92 11/29/19 00:00 98.8 88 20 146/67 (93) 100 11/29/19 00:00 Mechanical Ventilator 11/28/19 23:00 90 15 142/69 (93) 100 11/28/19 22:50 92 26 35 11/28/19 22:00 93 17 146/61 (89) 100 11/28/19 21:03 158/68 11/28/19 21:02 102 158/68 11/28/19 21:00 104 20 158/68 (98) 100 11/28/19 20:46 100 26 35 11/28/19 20:00 Mechanical Ventilator 11/28/19 20:00 89 11/28/19 20:00 99.7 96 20 143/80 (101) 100 11/28/19 20:00 35 11/28/19 19:00 93 19 145/68 (93) 100 11/28/19 18:57 91 23 35 11/28/19 18:00 90 21 123/63 (83) 100 11/28/19 17:54 152/64 11/28/19 17:00 86 20 145/73 (97) 100 11/28/19 16:35 86 23 35 11/28/19 16:00 98.8 87 19 134/62 (86) 100 11/28/19 16:00 87 11/28/19 16:00 Mechanical Ventilator 11/28/19 15:45 40 11/28/19 15:20 86 24 35 11/28/19 15:00 87 16 143/72 (95) 100 11/28/19 14:48 140/63 11/28/19 14:00 92 19 141/66 (91) 100 Intake and Output 11/28/19 11/29/19 19:00 07:00 Intake Total 510 ml 2700 ml Output Total 525 ml 215 ml Balance -15 ml 2485 ml Intake Free Water 110 ml IV Total 150 ml 110 ml Tube Feeding 360 ml 480 ml Hemodialysis 2000 ml Output Urine Total 525 ml 215 ml Laboratory Tests 11/29/19 04:30: White Blood Count 15.6H, Red Blood Count 2.80L, Hemoglobin 8.1L, Hematocrit 23.5L, Mean Corpuscular Volume 84, Mean Corpuscular Hemoglobin 29.2, Mean Corpuscular Hemoglobin Concent 34.6, Red Cell Distribution Width 13.8, Platelet Count 159, Mean Platelet Volume 5.0L, Neutrophils (%) (Auto) , Lymphocytes (%) ( Auto) , Monocytes (%) (Auto) , Eosinophils (%) (Auto) , Basophils (%) (Auto) , Differential Total Cells Counted 100, Neutrophils % (Manual) 89H, Lymphocytes % (Manual) 3L, Monocytes % (Manual) 7, Eosinophils % (Manual) 1, Basophils % ( Manual) 0, Band Neutrophils 0, Platelet Estimate Adequate, Platelet Morphology Normal, Sodium Level 141, Potassium Level 3.5, Chloride Level 105, Carbon Dioxide Level 25, Anion Gap 11, Blood Urea Nitrogen 83H, Creatinine 4.7H, Estimat Glomerular Filtration Rate 15.6, Glucose Level 195H, Uric Acid 4.2, Calcium Level 8.6, Phosphorus Level 3.4, Magnesium Level 2.1, Total Bilirubin 0.6, Aspartate Amino Transf (AST/SGOT) 57H, Alanine Aminotransferase (ALT/SGPT) 80H, Alkaline Phosphatase 117H, Troponin I 0.158H, C-Reactive Protein, Quantitative 5.5H, Pro-B-Type Natriuretic Peptide 04350T, Total Protein 6.3L, Albumin 1.6L, Globulin 4.7, Albumin/Globulin Ratio 0.3L 11/29/19 07:26: Arterial Blood pH 7.461H, Arterial Blood Partial Pressure CO2 32.4L, Arterial Blood Partial Pressure O2 157.3H, Arterial Blood HCO3 22.6, Arterial Blood Oxygen Saturation 98.6, Arterial Blood Base Excess -0.9, Garry Test Positive Height (Feet): 5 Height (Inches): 8.00 Weight (Pounds): 245 General Appearance: no apparent distress Cardiovascular: normal rate Respiratory/Chest: decreased breath sounds Abdomen: soft Tej Sidhu MD Nov 29, 2019 13:51
[2019-11-29] MEDS ORDERED: Morphine Sulfate 4mg/ml Inj (IV USE ONLY) IVP PRN (15:15)
--- NOTE | 2019-11-29 15:16 | NUR ---
NURSE NOTES: Speech therapist attempted to perform swallow study. Patient showing evidence of shortness of breath and saturation dropping to 89-91% on 4L nasal cannula. Unable to continue with swallow study. Respiratory therapist called to administer respiratory treatment and obtain ABG. Will continue to monitor.
[2019-11-29] MEDS: Albuterol/Ipratropium 3ml neb HHN PRN (15:17)
--- NOTE | 2019-11-29 15:31 | NUR ---
ST NOTES: REFERRED FOR SWALLOW EVAL BY DR MASON, SEE FULL REPORT. DYSPHAGIA RISK FACTORS FOR THIS 59 Y.O.M.: ACUTE (ARDS) RESP FAILURE INTUBATED 4 DAYS 11/25 TO 11/29 EXTUBATED AT 10 AM 5 HOURS AGO. ON MASK WITH 10 LITERS, HCAP, SEPTIC SHOCK, RENAL DZ WITH HD AT 4PM TODAY. H/O PNA (? WHEN), GERD ON PROTONIX, DIABETES, RECENT BKA, ALLERGIC RHINITIS, HTN. PER RN, WAS HOSPITALIZED AT [facility] (RECORDS REQUESTED). PER POLST OK TO HAVE ASSISTED TF. AT SNF ON CCHO EUGENIA REGULAR TEXTURE DIET AND THIN LIQUIDS (NO PASTA) WITH PROSTAT SF. NO ST NOTES. NOW NPO AND GETTING NGT FEEDINGS SINCE 11/25/19. PER RT EARLIER DIFFICULTY CLEARING SECRETIONS. INITIAL IMPRESSIONS: S/S OF SOME OROPHARYNGEAL DYSPHAGIA WITH ASPIRATION RISK MORE RELATED TO RESP INCOORDINATION WITH BREATHING ESPECIALLY IF RESP RATE TOO RAPID. ADEQUATE OROMOTOR SKILLS, HOARSE VOICE (JUST EXTUBATED 5 HOURS AGO), ABLE TO COUGH UP SOME SECRETIONS (MILD AMOUNTS). GIVEN 1/2 TSP THIN LIQUID WATER,SWALLOWED WITHIN A FEW SEC FAIR TO GOOD HYOLARYNGEAL EXCURSION, NO ORAL RESIDUE, SWALLOWED AGAIN, COUGHED AFTER SWALLOW. GIVEN 1/2 TSP NECTAR THICK WATER (X2), SWALLOWED AFTER 2 SECONDS WITH FAIR HYOLARYNGEAL EXCURSION, NO ORAL RESIDUE NOR OVERT ASPIRATION SP02 AT TIMES DOWN TO HIGH 80S (FROM 90s) WITH NC (10 LITERS) AND RESP RATE HIGHER AT TIMES (ABOVE 25 BPM AT TIMES) AT RISK FOR INADEQUATE INTAKE AT THIS TIME. RECOMMENDATIONS: KEEP NPO FOR NOW AND CONTINUE WITH NONORAL (NGT 16 FR) FEEDINGS, ORAL CARE, AND SELF-SUCTIONING PRN. HOLD ON FURTHER PO TRIALS FOR NOW. CONTINUE WITH SKILLED DYSPHAGIA MANAGEMENT AND TX (RE-ASSES WHEN READY AND CONSIDER MOD BARIUM SWALLOW IF INDICATED). D/W YUKI MYERS
--- NOTE | 2019-11-29 15:45 | NUR ---
NURSE NOTES: Left telephone message for Dr Milton regarding ABG result. Awaiting call back.
--- NOTE | 2019-11-29 16:30 | NUR ---
NURSE NOTES: Patient showed no relief of respiratory distress/SOB post duo-neb treatment. Oxygen saturation dropped to 88-89%. Patient unable to catch his breath. ABG obtained. Patient placed on 100% high flow nasal canula. Oxygen saturation dropped to 77%. Patient place on BiPAP 12/5 with 100% FiO2. Oxygen saturation increased to 93%. Setting increased to 15/7 with 100% FIO2. Oxygen saturation now 96-98%. Left message for Dr Milton. Awaiting call back. Will continue to monitor. Addendum: 11/29/19 at 1711 by Joyce Hernandez RN Left telephone message for Dr Milton. Awaiting call back.
--- NOTE | 2019-11-29 17:30 | NUR ---
NURSE NOTES: Received call back from Dr Milton. Updated him regarding patient condition. NO new orders received.
--- NOTE | 2019-11-29 18:00 | NUR ---
NURSE NOTES: Patient calm at this time with no sign of distress. Patient sleeping. On hemodialysis. colleter at the bedside. BP 145/97. Temp 98.0. SpO2 98%. RR 25. HR 102. Patient remains on BiPAP 15/ with FiO2 100%. Right nares NGT remains in place, patent, and clamped at this time. Patient remains NPO due to BiPAP. Patient last blood sugar 134 with no coverage given. Cruz remains in place and draining 5-10mL/hr. All wounds covered with dressing, dry and intact. Awaiting arrival of low air loss mattress. Generalized edema still present with pitting edema +2 with cellulitis noted on right leg and foot. Right femoral Chris catheter asymptomatic with dressing dry and intact. Right internal jugular triple lumen catheter remains patent, asymptomatic, and saline locked at this time. Patient repositioned. Oral care refused by patient. Will continue to monitor.
[2019-11-29] MEDS ORDERED: NS 275ml ONE (18:51)
[2019-11-29] MEDS ORDERED: 1/2 NS 1000ml IV ONE (18:51)
--- NOTE | 2019-11-29 19:30 | NUR ---
HAND-OFF: Report given to YUKI Zendejas. Patient SpO2 100% at this time. patient states that he feels better. Patient remains on BiPAP. ABG ordered post hemodialysis. Endorsed to follow up. Records from [facility] and [facility] still not received. Edorsed to follow up. Low air loss mattress still has not arrived. Endorsed to follow up.
--- NOTE | 2019-11-29 19:35 | NUR ---
NURSE NOTES: Received pt from Krystin Hernandez RN. pt is observed in bed, receiving HD at this time; no s/sx of pain noted at this time. pt is on BiPAP with settings of 15/7, FiO2: 100% at this time. ABG to be done post HD, will follow up with RT. NGT noted in R nare, marked at 75 cm; pt is NPO at this time d/t BiPAP. no s/sx of respiratory distress noted. F/C is patent and intact, draining to gravity. skin alterations noted. R femoral Chris catheter with pigtail noted, patent and intact. RIJ TLC noted patent and intact; dressings dry and intact. bed in lowest position and locked, siderails up X3, call light within reach. will continue to monitor.
--- NOTE | 2019-11-29 19:47 | Internal Med Progress Note ---
Subjective Date of Service: Nov 29, 2019 Physician Name AnastaciaSidney Attending Physician Cezar Ceja MD Current Medications Medications (Trade) Dose Ordered Sig/Valeriano Route PRN Reason Start Time Stop Time Status Last Admin Dose Admin Acetaminophen (Tylenol) 650 mg Q4H PRN NG Mild Pain/Temp > 100.5 11/29/19 08:00 12/29/19 07:59 11/29/19 08:12 Albuterol/ Ipratropium (Albuterol/ Ipratropium) 3 ml Q4H PRN HHN Shortness of Breath 11/29/19 15:15 12/04/19 15:14 11/29/19 15:17 Carvedilol (Coreg) 6.25 mg EVERY 12 HOURS NG 11/28/19 21:00 12/28/19 20:59 11/29/19 08:43 Cefepime HCl 2 gm/ Dextrose 110 ml @ 220 mls/hr Q24H IV 11/24/19 21:00 12/01/19 20:59 11/28/19 21:02 Chlorhexidine Gluconate (Katia-Hex 2%) 1 applic DAILY@2000 TOPIC 11/25/19 20:00 12/25/19 19:59 11/28/19 21:00 Dextrose (Dextrose 50%) 25 ml Q30M PRN IV Hypoglycemia 11/24/19 13:30 12/24/19 13:29 Dextrose (Dextrose 50%) 50 ml Q30M PRN IV Hypoglycemia 11/24/19 13:30 12/24/19 13:29 Fentanyl Citrate 2500 mcg/Sodium Chloride 250 ml @ 0 mls/hr Q24H IV 11/24/19 20:00 12/01/19 19:59 11/24/19 19:54 Folic Acid (Folate) 5 mg DAILY GT 11/27/19 09:00 12/27/19 08:59 11/29/19 08:43 Heparin Sodium (Porcine) (Heparin 5000 units/ml) 5,000 units EVERY 12 HOURS SUBQ 11/24/19 21:00 12/24/19 20:59 11/29/19 08:51 Hydralazine HCl (Apresoline) 25 mg EVERY 8 HOURS ORAL 11/28/19 09:15 12/28/19 09:14 11/29/19 05:58 Insulin Aspart (NovoLOG) BEFORE MEALS AND HS SUBQ 11/24/19 16:30 12/24/19 16:29 11/29/19 05:57 Isosorbide Dinitrate (Isordil) 10 mg Q6HR ORAL 11/28/19 12:00 12/28/19 11:59 11/29/19 11:36 Levofloxacin (Levaquin) 500 mg Q48H ORAL 11/27/19 13:00 12/02/19 12:59 11/29/19 13:32 Lorazepam (Ativan 2mg/ml 1ml) 2 mg Q4H PRN IV For Anxiety 11/24/19 15:15 12/01/19 15:14 11/27/19 18:03 Morphine Sulfate (Morphine Sulfate) 2 mg Q4H PRN IVP Severe Pain (Pain Scale 7-10) 11/29/19 13:15 12/06/19 13:14 11/29/19 13:28 Nitroglycerin (Ntg) 0.4 mg Q5M PRN SL Prn Chest Pain 11/24/19 09:30 12/24/19 09:29 11/24/19 09:23 Norepinephrine Bitartrate 8 mg/ Dextrose 500 ml @ 0 mls/hr Q24H IV 11/25/19 04:30 12/25/19 04:29 11/25/19 04:54 Ondansetron HCl (Zofran) 4 mg Q6H PRN IVP Nausea & Vomiting 11/24/19 13:30 12/24/19 13:29 Oseltamivir Phosphate (Tamiflu) 30 mg DAILY ORAL 11/25/19 13:00 12/01/19 12:59 11/29/19 08:43 Pantoprazole (Protonix) 40 mg Q12HR IV 11/25/19 21:00 12/25/19 08:59 11/29/19 08:42 Polyethylene Glycol (Miralax) 17 gm DAILYPRN PRN ORAL Constipation 11/24/19 13:30 12/24/19 13:29 Promethazine HCl/ Codeine (Phenergan with Codeine) 5 ml Q4H PRN ORAL For Cough 11/24/19 13:30 12/24/19 13:29 Vancomycin HCl (Vanco rx to dose) 1 ea DAILY PRN MISC . 2/13/20 13:30 12/24/19 13:29 Allergies: Coded Allergies: No Known Allergies (Unverified , 11/24/19) ROS Limited/Unobtainable: Yes Subjective 59 YO M admitted with respirtory failure. Cover for Int Med-Dr Ceja. BIPAP. ICU. Objective Last Vital Signs Date Time Temp Pulse Resp B/P (MAP) Pulse Ox O2 Delivery O2 Flow Rate FiO2 11/29/19 19:18 100 Bi-Pap 100 11/29/19 19:18 103 23 11/29/19 19:00 144/82 (102) 11/29/19 16:00 98.0 11/29/19 15:14 10.0 Laboratory Tests Test 11/29/19 04:30 11/29/19 07:26 11/29/19 15:20 White Blood Count 15.6 K/UL (4.8-10.8) H Red Blood Count 2.80 M/UL (4.70-6.10) L Hemoglobin 8.1 G/DL (14.2-18.0) L Hematocrit 23.5 % (42.0-52.0) L Mean Corpuscular Volume 84 FL (80-99) Mean Corpuscular Hemoglobin 29.2 PG (27.0-31.0) Mean Corpuscular Hemoglobin Concent 34.6 G/DL (32.0-36.0) Red Cell Distribution Width 13.8 % (11.6-14.8) Platelet Count 159 K/UL (150-450) Mean Platelet Volume 5.0 FL (6.5-10.1) L Neutrophils (%) (Auto) % (45.0-75.0) Lymphocytes (%) (Auto) % (20.0-45.0) Monocytes (%) (Auto) % (1.0-10.0) Eosinophils (%) (Auto) % (0.0-3.0) Basophils (%) (Auto) % (0.0-2.0) Differential Total Cells Counted 100 Neutrophils % (Manual) 89 % (45-75) H Lymphocytes % (Manual) 3 % (20-45) L Monocytes % (Manual) 7 % (1-10) Eosinophils % (Manual) 1 % (0-3) Basophils % (Manual) 0 % (0-2) Band Neutrophils 0 % (0-8) Platelet Estimate Adequate Platelet Morphology Normal Sodium Level 141 MMOL/L (136-145) Potassium Level 3.5 MMOL/L (3.5-5.1) Chloride Level 105 MMOL/L (98-107) Carbon Dioxide Level 25 MMOL/L (21-32) Anion Gap 11 mmol/L (5-15) Blood Urea Nitrogen 83 mg/dL (7-18) H Creatinine 4.7 MG/DL (0.55-1.30) H Estimat Glomerular Filtration Rate 15.6 mL/min (>60) Glucose Level 195 MG/DL (74-106) H Uric Acid 4.2 MG/DL (2.6-7.2) Calcium Level 8.6 MG/DL (8.5-10.1) Phosphorus Level 3.4 MG/DL (2.5-4.9) Magnesium Level 2.1 MG/DL (1.8-2.4) Total Bilirubin 0.6 MG/DL (0.2-1.0) Aspartate Amino Transf (AST/SGOT) 57 U/L (15-37) H Alanine Aminotransferase (ALT/SGPT) 80 U/L (12-78) H Alkaline Phosphatase 117 U/L (46-116) H Troponin I 0.158 ng/mL (0.000-0.056) C-Reactive Protein, Quantitative 5.5 mg/dL (0.00-0.90) H Pro-B-Type Natriuretic Peptide 14282 pg/mL (0-125) H Total Protein 6.3 G/DL (6.4-8.2) L Albumin 1.6 G/DL (3.4-5.0) L Globulin 4.7 g/dL Albumin/Globulin Ratio 0.3 (1.0-2.7) L Arterial Blood pH 7.461 (7.350-7.450) 7.439 (7.350-7.450) Arterial Blood Partial Pressure CO2 32.4 mmHg (35.0-45.0) L 31.9 mmHg (35.0-45.0) L Arterial Blood Partial Pressure O2 157.3 mmHg (75.0-100.0) H < 45.3 mmHg (75.0-100.0) Arterial Blood HCO3 22.6 mmol/L (22.0-26.0) 21.1 mmol/L (22.0-26.0) L Arterial Blood Oxygen Saturation 98.6 % (95-100) 79.8 % (95-100) *L Arterial Blood Base Excess -0.9 (-2-2) -2.5 (-2-2) L Garry Test Positive Positive Microbiology Date/Time Source Procedure Growth Status 11/27/19 14:45 Blood Blood Culture - Preliminary NO GROWTH AFTER 24 HOURS Resulted 11/27/19 14:00 Blood Blood Culture - Preliminary Resulted 11/29/19 03:30 Sputum Induced Gram Stain - Final Resulted 11/29/19 03:30 Sputum Induced Sputum Culture Pending Resulted Intake and Output 11/28/19 11/29/19 19:00 07:00 Intake Total 510 ml 2700 ml Output Total 525 ml 215 ml Balance -15 ml 2485 ml Intake Free Water 110 ml IV Total 150 ml 110 ml Tube Feeding 360 ml 480 ml Hemodialysis 2000 ml Output Urine Total 525 ml 215 ml Objective PHYSICAL EXAMINATION: GENERAL: The patient is a well-developed and well-nourished male, in moderate respiratory distress. HEENT: Eyes, pupils are equal and responsive to light and accommodation. Extraocular movements are intact. NECK: Supple without lymphadenopathy. CHEST: BIPAP; Mechanical breath sounds, otherwise without wheezes or rales. CARDIOVASCULAR: Regular rate. S1 and S2 normal without murmurs, rubs, or gallops. ABDOMEN: Soft, nontender, and nondistended. Positive bowel sounds. No evidence of hepatosplenomegaly. Currently, no rebound or guarding noted. EXTREMITIES: Negative for clubbing, cyanosis, or edema. RECTAL/GENITAL: Refused. NEUROLOGIC: Cranial nerves II through XII are grossly intact without focal deficits. Assessment/Plan Assessment/Plan ASSESSMENT: This is a 59-year-old male. 1. Respiratory failure. 2. Pneumonia. 3. Probable sepsis. 4. Diabetes type 2. 5. Hypertension. 6. Hypercholesterolemia. TREATMENT: 1. Respiratory failure/pneumonia. The patient is currently on BIPAP in the intensive care unit. A Pulmonary consultation has been obtained with Dr. Brandy Mliton. ABX=vancomycin, levaquin and cefepime to cover healthcare-associated pneumonia. Continue tamiflu per ID=Dr Andrade. We will follow recommendations of Pulmonary. Sputum cultures are pending at this time. 2. Probable sepsis. Blood cultures are pending. As above, the patient has been placed empirically on vancomycin and cefepime. 3. Diabetes type 2. A NovoLog sliding scale has been instituted. 4. Hypertension. The patient is currently hypotensive. Hold antihypertensive medication. 5. Hypercholesterolemia. Continue atorvastatin as above. Sidney Galaviz MD Nov 29, 2019 19:47
[2019-11-29] MEDS: fentaNYL Citrate 2500mcg in NS 250ml IV SCH (20:00)
--- NOTE | 2019-11-29 20:15 | NUR ---
NURSE NOTES: pt appears calm and comfortable post HD. will follow up with respiratory therapist regarding ABG. diminished lung sounds and rhonchi heard upon auscultation. hyperactive bowel sounds heard in X4 quadrants upon auscultation. NGT placement confirmed via auscultation. will continue to monitor.
[2019-11-29] MEDS: Dyna-Hex 2% Top Sol 2oz TOPIC SCH (20:41)
[2019-11-29] MEDS: Cefepime HCl 2 GM in D5W 110 ML IV SCH (20:41)
--- NOTE | 2019-11-29 22:05 | NUR ---
NURSE NOTES: temp: 98.8 post admin of tylenol for fever of 100.7 as ordered per MD. will continue to monitor.
--- NOTE | 2019-11-29 23:35 | NUR ---
NURSE NOTES: Dr. Milton made aware of pt's ABG results post HD. no new orders given at this time. will continue to monitor pt.
[2019-11-30] VITALS (24 sets, daily range): BP systolic 113–159; BP diastolic 52–106
--- NOTE | 2019-11-30 00:30 | NUR ---
NURSE NOTES: all due meds given. pt repositioned in bed with pillow support. tolerated well. will continue to monitor.
--- NOTE | 2019-11-30 02:14 | NUR ---
NURSE NOTES: pt appears to be sleeping. no s/sx of distress noted at this time. will continue to monitor.
--- NOTE | 2019-11-30 04:15 | NUR ---
NURSE NOTES: CHG bath given. new gown and linens applied. pt tolerated well. will continue to monitor.
[2019-11-30 05:39] LABS: HEMATOCRIT 24.3 % (42.0-52.0); HEMOGLOBIN 8.3 G/DL (14.2-18.0); MEAN CORPUSCULAR VOLUME 84 FL (80-99); PLATELET COUNT 181 K/UL (150-450); RED BLOOD COUNT 2.89 M/UL (4.70-6.10); WHITE BLOOD COUNT 20.6 K/UL (4.8-10.8)
[2019-11-30] MEDS: HydrALAZINE 25mg tab ORAL SCH (05:40)
--- NOTE | 2019-11-30 06:00 | NUR ---
NURSE NOTES: blood glucose 123 at this time. pt c/o SOB and appears restless. titrated FiO2 to 85% at this time. pt nodded yes when asked if symptoms improved. will follow up with respiratory therapist regarding PRN breathing tx. will continue to monitor.
[2019-11-30 06:13] LABS: ALANINE AMINOTRANSFERASE 45 U/L (12-78); ALBUMIN 1.6 G/DL (3.4-5.0); ALBUMIN/GLOBULIN RATIO 0.3 (1.0-2.7); ALKALINE PHOSPHATASE 106 U/L (46-116); ANION GAP 12 mmol/L (5-15); ASPARTATE AMINO TRANSFERASE 50 U/L (15-37); BILIRUBIN,TOTAL 0.8 MG/DL (0.2-1.0); BLOOD UREA NITROGEN 70 mg/dL (7-18); CALCIUM 9.1 MG/DL (8.5-10.1); CARBON DIOXIDE 26 MMOL/L (21-32); CHLORIDE 104 MMOL/L (98-107); CREATININE 4.5 MG/DL (0.55-1.30); POTASSIUM 3.9 MMOL/L (3.5-5.1); SODIUM 142 MMOL/L (136-145)
[2019-11-30] MEDS: NovoLOG Insulin Flexpen SUBQ SCH ×4 (06:30→20:42)
--- NOTE | 2019-11-30 07:18 | NUR ---
HAND-OFF: Report given to Krystin Hernandez RN. endorsed plan of care.
--- NOTE | 2019-11-30 07:19 | NUR ---
NURSE NOTES: Received patient from YUKI Zendejas. Patient alert to name, place, and purpose. Patient denies distress at this time. Patient on BiPAP 15/7 with 85% FiO2. Respiratory therapist attempted to titrate FiO2 last night but patient became anxious and short of breath and FiO2 had to be increased. R nares nasal gastric tube noted at 75cm. Tube clamped and reverified at this time with auscultation. Patient NPO due to BiPAP. Blood sugar stable over night. Cruz for urine retention in place, patent, and asymptomatic. Patient has right femoral Chris catheter that is asymptomatic and dressing dry and intact. Patient has sacral old wound with small open spot, right leg cellulitis, old wound on top of left leg BKA stump, and generalized edema with +2 pitting in right leg. Patient has an order for low air loss mattress. Mattress re-ordered yesterday. Followed up with central supply this morning as the mattress has not yet arrived. Central supply reported that they would follow up with the supplier. Right internal jugular central line catheter patent, asymptomatic, and saline locked at this time. White blood cell count trending up. Will ensure infectious disease doctor is aware when she rounds on the patient. [facility] still has not sent the medical records that were requested 2 days ago. Will follow up. Patient bed in low position with bed alarm on and call light in reach at this time. Oral care and repositioning done. Will continue to monitor. Addendum: 11/30/19 at 0759 by Joyce Hernandez RN BiPAP 15/7 with 60% FiO2
--- NOTE | 2019-11-30 08:12 | NUR ---
NURSE NOTES: Called [facility] health records to follow up regarding request for information. Received notification that the records will be faxed over later today. Will follow up.
[2019-11-30] MEDS: Carvedilol 6.25mg Tab NG SCH (08:35)
[2019-11-30] MEDS: Pantoprazole Inj IV SCH (08:36)
[2019-11-30] MEDS: Heparin 5000 units/ml inj SUBQ SCH ×2 (08:39→20:46)
--- NOTE | 2019-11-30 09:03 | NUR ---
RADIOLOGY DEPT., CHEST X-RAY DONE.-P.DYE
--- NOTE | 2019-11-30 09:31 | Nephrology Progress Note ---
Assessment/Plan Problem List: (1) ARF (acute renal failure) (2) Acute respiratory failure (3) Septic shock (4) Anemia (5) History of hypertension (6) Diabetes mellitus (7) Acute on chronic systolic heart failure Assessment: ej Fx 40 Assessment Acute renal failure- ? Underlying CKD Respiratory failure Anemia Sepsis / Shock ? Pneumonia DM HTN by history Gout left BKA Cardiomyopathy - Ej Fx 40% Plan Plan: HD 11/27 done and 2 liters removed HD again 11/30 was transfused on coreg increase hydralazine discussed with ICU chargeback specialist DC IV previously DC Hydrocortisone Antibiotics urine studies avoid nephrotoxics monitor renal parameters Anemia hairston per orders Subjective ROS Limited/Unobtainable: Yes Objective Objective Last 24 Hour Vital Signs Date Time Temp Pulse Resp B/P (MAP) Pulse Ox O2 Delivery O2 Flow Rate FiO2 11/30/19 09:00 83 18 133/64 (87) 95 11/30/19 08:47 45 11/30/19 08:41 87 18 100 45 11/30/19 08:35 87 140/58 11/30/19 08:00 88 11/30/19 08:00 Bi-pap 11/30/19 07:57 60 11/30/19 07:45 98.0 88 8 140/58 (85) 100 11/30/19 07:15 100 Bi-Pap 60 11/30/19 07:14 86 13 100 60 11/30/19 07:00 91 17 150/62 (91) 100 11/30/19 06:32 155/70 11/30/19 06:00 95 16 159/71 (100) 98 11/30/19 05:40 130/46 11/30/19 05:00 92 11 146/63 (90) 100 11/30/19 04:30 150/62 11/30/19 04:00 50 11/30/19 04:00 Bi-pap 11/30/19 04:00 98.2 94 15 148/68 (94) 100 11/30/19 04:00 92 11/30/19 03:36 92 18 100 60 11/30/19 03:00 94 20 144/79 (100) 100 11/30/19 02:00 92 22 146/70 (95) 100 11/30/19 01:41 91 14 100 60 11/30/19 01:00 93 23 134/54 (80) 100 11/30/19 00:28 140/64 2 00:00 102 11/30/19 00:00 Bi-pap 11/30/19 00:00 97.7 92 17 134/65 (88) 100 11/30/19 00:00 70 220 23:37 90 19 100 70 11/29/19 23:00 88 18 137/59 (85) 100 11/29/19 22:31 132/57 11/29/19 22:00 89 18 123/52 (75) 100 11/29/19 21:34 98.8 11/29/19 21:14 92 18 100 85 11/29/19 21:04 101 153/65 11/29/19 21:00 101 21 153/65 (94) 100 11/29/19 20:30 85 11/29/19 20:00 100.7 103 23 126/59 (81) 100 11/29/19 20:00 102 11/29/19 20:00 Bi-pap 11/29/19 19:18 100 Bi-Pap 100 11/29/19 19:18 103 23 100 100 11/29/19 19:00 103 24 144/82 (102) 100 11/29/19 18:00 102 27 156/67 (96) 96 11/29/19 17:29 149/70 11/29/19 17:00 96 25 155/60 (91) 97 11/29/19 16:29 95 25 95 100 11/29/19 16:00 98.0 99 30 137/59 (85) 72 11/29/19 16:00 Bi-pap 11/29/19 16:00 100 11/29/19 16:00 95 11/29/19 15:14 90 20 93 Cool Aerosol 10.0 35 11/29/19 15:12 91 20 94 Cool Aerosol 10.0 35 90 20 91 11/29/19 15:00 90 25 145/64 (91) 93 1820 14:00 86 19 142/69 (93) 93 1820 13:32 141/61 2 13:00 86 20 141/61 (87) 95 1820 12:00 85 11/29/19 12:00 98.0 82 22 135/60 (85) 99 11/29/19 12:00 10.0 35 11/29/19 12:00 Simple Mask 10.0 11/29/19 11:36 132/59 11/29/19 11:00 83 17 128/59 (82) 100 11/29/19 10:54 100 Cool Aerosol 10.0 35 11/29/19 10:53 Venturi Mask 10.0 35 11/29/19 10:03 80 16 127/56 (79) 100 Intake and Output 11/29/19 11/30/19 19:00 07:00 Intake Total 0 ml 2110 ml Output Total 200 ml 200 ml Balance -200 ml 1910 ml IV Total 110 ml Tube Feeding 0 ml 0 ml Hemodialysis 2000 ml Output Urine Total 200 ml 200 ml Laboratory Tests 11/29/19 15:20: Arterial Blood pH 7.439, Arterial Blood Partial Pressure CO2 31.9L, Arterial Blood Partial Pressure O2 < 45.3*L, Arterial Blood HCO3 21.1L, Arterial Blood Oxygen Saturation 79.8*L, Arterial Blood Base Excess -2.5L, Garry Test Positive 11/29/19 20:33: Arterial Blood pH 7.511H, Arterial Blood Partial Pressure CO2 32.6L, Arterial Blood Partial Pressure O2 156.1H, Arterial Blood HCO3 25.5, Arterial Blood Oxygen Saturation 98.5, Arterial Blood Base Excess 2.6H, Garry Test Positive 11/30/19 04:30: White Blood Count 20.6H, Red Blood Count 2.89L, Hemoglobin 8.3L, Hematocrit 24.3L, Mean Corpuscular Volume 84, Mean Corpuscular Hemoglobin 28.7, Mean Corpuscular Hemoglobin Concent 34.2, Red Cell Distribution Width 14.0, Platelet Count 181, Mean Platelet Volume 5.5L, Neutrophils (%) (Auto) , Lymphocytes (%) ( Auto) , Monocytes (%) (Auto) , Eosinophils (%) (Auto) , Basophils (%) (Auto) , Neutrophils % (Manual) [Pending], Lymphocytes % (Manual) [Pending], Platelet Estimate [Pending], Platelet Morphology [Pending], Sodium Level 142, Potassium Level 3.9, Chloride Level 104, Carbon Dioxide Level 26, Anion Gap 12, Blood Urea Nitrogen 70H, Creatinine 4.5H, Estimat Glomerular Filtration Rate 16.4, Glucose Level 143H, Calcium Level 9.1, Total Bilirubin 0.8, Aspartate Amino Transf (AST/SGOT) 50H, Alanine Aminotransferase (ALT/SGPT) 45, Alkaline Phosphatase 106, Troponin I 0.082H, Pro-B-Type Natriuretic Peptide 10265U, Total Protein 6.3L, Albumin 1.6L, Globulin 4.7, Albumin/Globulin Ratio 0.3L, Random Vancomycin Level 17.3 11/30/19 08:00: Arterial Blood pH 7.436, Arterial Blood Partial Pressure CO2 40.7, Arterial Blood Partial Pressure O2 98.3, Arterial Blood HCO3 26.8H, Arterial Blood Oxygen Saturation 97.0, Arterial Blood Base Excess 2.4H, Garry Test Positive Height (Feet): 5 Height (Inches): 8.00 Weight (Pounds): 240 General Appearance: no apparent distress EENT: other - vented Cardiovascular: normal rate Respiratory/Chest: decreased breath sounds Abdomen: distended Tej Sidhu MD Nov 30, 2019 09:31
--- NOTE | 2019-11-30 09:34 | Diagnostic Imaging Report ---
Indication: Dyspnea Technique: One view of the chest Comparison: 11/29/2019 Findings: There is bilateral diffuse airspace disease, markedly increased from the previous exam. Previously demonstrated endotracheal tube is not visualized. Right jugular central venous catheter is again noted. Pleural spaces are grossly clear. Impression: Interim marked worsening of bilateral pulmonary parenchymal disease, over one day Apparent interim extubation. Other stable tube and line positions as described
--- NOTE | 2019-11-30 09:39 | NUR ---
NURSE NOTES: [facility] dialysis informed of hemodialysis scheduled for today via telephone call. Received notification that Harry would be notified. Awaiting call back.
[2019-11-30] MEDS ORDERED: Vancomycin 1 GM in NS 275 ML IVPB ONE (10:00)
[2019-11-30] MEDS: Acetaminophen 650mg/20.3ml NG PRN ×2 (10:08→17:37)
--- NOTE | 2019-11-30 10:30 | NUR ---
NURSE NOTES: Patient vital signs stable with no sign of acute distress. Patient repositioned himself. Patient remains on BiPAP with setting of 15/7 and 45% FiO2 with oxygen saturation 100% and 24 RR. Addendum: 11/30/19 at 1059 by Joyce Hernandez RN Updated Dr Miltno regarding patient condition overnight. No verbal orders received.
--- NOTE | 2019-11-30 10:50 | Pulmonolgy Critical Care Note ---
Critical Care - Asmt/Plan Problems: (1) Acute respiratory failure (2) Septic shock (3) HCAP (healthcare-associated pneumonia) (4) Chronic systolic heart failure (5) Chronic kidney disease, stage 3 (6) Diabetes mellitus (7) History of hypertension (8) History of gout (9) History of left below knee amputation Respiratory: monitor respiratory rate, adjust FIO2, CXR Cardiac: continue to monitor HR/BP Renal: F/U I&O, check electrolytes Infectious Disease: check cultures, continue antibiotics Gastrointestinal: continue feedings/current rate Endocrine: monitor blood sugar Hematologic: monitor H/H, transfuse if hgb<8.5 Neurologic: keep patient comfortable Prophylaxis: Protonix, Heparin Disposition: keep in ICU Notes Reviewed: cardio Discussed with: nurses, consultants, rn case mgrmanager corporate marketing - Objective Last 24 Hour Vital Signs Date Time Temp Pulse Resp B/P (MAP) Pulse Ox O2 Delivery O2 Flow Rate FiO2 11/30/19 10:00 81 18 126/66 (86) 98 11/30/19 09:00 83 18 133/64 (87) 95 11/30/19 08:47 45 11/30/19 08:41 87 18 100 45 11/30/19 08:35 87 140/58 11/30/19 08:00 88 11/30/19 08:00 Bi-pap Bi-pap Bi-pap 11/30/19 07:57 60 11/30/19 07:45 98.0 88 8 140/58 (85) 100 11/30/19 07:15 100 Bi-Pap 60 11/30/19 07:14 86 13 100 60 11/30/19 07:00 91 17 150/62 (91) 100 11/30/19 06:32 155/70 11/30/19 06:00 95 16 159/71 (100) 98 11/30/19 05:40 130/46 11/30/19 05:00 92 11 146/63 (90) 100 11/30/19 04:30 150/62 11/30/19 04:00 50 11/30/19 04:00 Bi-pap 11/30/19 04:00 98.2 94 15 148/68 (94) 100 11/30/19 04:00 92 11/30/19 03:36 92 18 100 60 11/30/19 03:00 94 20 144/79 (100) 100 11/30/19 02:00 92 22 146/70 (95) 100 11/30/19 01:41 91 14 100 60 11/30/19 01:00 93 23 134/54 (80) 100 11/30/19 00:28 140/64 11/30/19 00:00 102 11/30/19 00:00 Bi-pap 11/30/19 00:00 97.7 92 17 134/65 (88) 100 11/30/19 00:00 70 11/29/19 23:37 90 19 100 70 11/29/19 23:00 88 18 137/59 (85) 100 11/29/19 22:31 132/57 11/29/19 22:00 89 18 123/52 (75) 100 11/29/19 21:34 98.8 11/29/19 21:14 92 18 100 85 11/29/19 21:04 101 153/65 11/29/19 21:00 101 21 153/65 (94) 100 11/29/19 20:30 85 11/29/19 20:00 100.7 103 23 126/59 (81) 100 20 20:00 102 20 20:00 Bi-pap 11/29/19 19:18 100 Bi-Pap 100 11/29/19 19:18 103 23 100 100 11/29/19 19:00 103 24 144/82 (102) 100 11/29/19 18:00 102 27 156/67 (96) 96 1820 17:29 149/70 11/29/19 17:00 96 25 155/60 (91) 97 11/29/19 16:29 95 25 95 100 11/29/19 16:00 98.0 99 30 137/59 (85) 72 20 16:00 Bi-pap 11/29/19 16:00 100 11/29/19 16:00 95 11/29/19 15:14 90 20 93 Cool Aerosol 10.0 35 1820 15:12 91 20 94 Cool Aerosol 10.0 35 90 20 91 2 15:00 90 25 145/64 (91) 93 20 14:00 86 19 142/69 (93) 93 11/29/19 13:32 141/61 2 13:00 86 20 141/61 (87) 95 11/29/19 12:00 85 11/29/19 12:00 98.0 82 22 135/60 (85) 99 11/29/19 12:00 10.0 35 11/29/19 12:00 Simple Mask 10.0 11/29/19 11:36 132/59 11/29/19 11:00 83 17 128/59 (82) 100 11/29/19 10:54 100 Cool Aerosol 10.0 35 11/29/19 10:53 Venturi Mask 10.0 35 Status: awake Condition: critical HEENT: atraumatic, normocephalic Lungs: rales, rhonchi Heart: regular Abdomen: soft, non-tender Micro: Microbiology Date/Time Source Procedure Growth Status 11/27/19 14:45 Blood Blood Culture - Preliminary NO GROWTH AFTER 48 HOURS Resulted 11/27/19 14:00 Blood Blood Culture - Preliminary Gram Positive Cocci Resulted 11/29/19 03:30 Sputum Induced Gram Stain - Final Resulted 11/29/19 03:30 Sputum Induced Sputum Culture Pending Resulted Accucheck: 123 Critical Care - Subjective ROS Limited/Unobtainable: Yes Interval Events: extubated yesterday, on BIPAP now. will get HD today Condition: critical FI02: 45 Vent Support Breath Rate: 20 Vent Support Mode: BiLevel Vent Tidal Volume: 600 Sputum Amount: None PEEP: 5.0 PIP: 14 Tube Feeding Amount: 0 I&O: Intake and Output 11/29/19 11/30/19 19:00 07:00 Intake Total 0 ml 2110 ml Output Total 200 ml 200 ml Balance -200 ml 1910 ml IV Total 110 ml Tube Feeding 0 ml 0 ml Hemodialysis 2000 ml Output Urine Total 200 ml 200 ml ET-Tube: 7.5 ET Position: 24 Labs: Laboratory Tests Test 11/29/19 15:20 11/29/19 20:33 11/30/19 04:30 11/30/19 08:00 Arterial Blood pH 7.439 (7.350-7.450) 7.511 (7.350-7.450) 7.436 (7.350-7.450) Arterial Blood Partial Pressure CO2 31.9 mmHg (35.0-45.0) L 32.6 mmHg (35.0-45.0) L 40.7 mmHg (35.0-45.0) Arterial Blood Partial Pressure O2 < 45.3 mmHg (75.0-100.0) 156.1 mmHg (75.0-100.0) H 98.3 mmHg (75.0-100.0) Arterial Blood HCO3 21.1 mmol/L (22.0-26.0) L 25.5 mmol/L (22.0-26.0) 26.8 mmol/L (22.0-26.0) H Arterial Blood Oxygen Saturation 79.8 % (95-100) *L 98.5 % (95-100) 97.0 % (95-100) Arterial Blood Base Excess -2.5 (-2-2) L 2.6 (-2-2) H 2.4 (-2-2) H Garry Test Positive Positive Positive White Blood Count 20.6 K/UL (4.8-10.8) H Red Blood Count 2.89 M/UL (4.70-6.10) L Hemoglobin 8.3 G/DL (14.2-18.0) L Hematocrit 24.3 % (42.0-52.0) L Mean Corpuscular Volume 84 FL (80-99) Mean Corpuscular Hemoglobin 28.7 PG (27.0-31.0) Mean Corpuscular Hemoglobin Concent 34.2 G/DL (32.0-36.0) Red Cell Distribution Width 14.0 % (11.6-14.8) Platelet Count 181 K/UL (150-450) Mean Platelet Volume 5.5 FL (6.5-10.1) L Neutrophils (%) (Auto) % (45.0-75.0) Lymphocytes (%) (Auto) % (20.0-45.0) Monocytes (%) (Auto) % (1.0-10.0) Eosinophils (%) (Auto) % (0.0-3.0) Basophils (%) (Auto) % (0.0-2.0) Differential Total Cells Counted 100 Neutrophils % (Manual) 86 % (45-75) H Lymphocytes % (Manual) 2 % (20-45) L Monocytes % (Manual) 9 % (1-10) Eosinophils % (Manual) 3 % (0-3) Basophils % (Manual) 0 % (0-2) Band Neutrophils 0 % (0-8) Platelet Estimate Adequate Platelet Morphology Normal Hypochromasia 2+ Anisocytosis 1+ Spherocytes 1+ Sodium Level 142 MMOL/L (136-145) Potassium Level 3.9 MMOL/L (3.5-5.1) Chloride Level 104 MMOL/L (98-107) Carbon Dioxide Level 26 MMOL/L (21-32) Anion Gap 12 mmol/L (5-15) Blood Urea Nitrogen 70 mg/dL (7-18) H Creatinine 4.5 MG/DL (0.55-1.30) H Estimat Glomerular Filtration Rate 16.4 mL/min (>60) Glucose Level 143 MG/DL (74-106) H Calcium Level 9.1 MG/DL (8.5-10.1) Total Bilirubin 0.8 MG/DL (0.2-1.0) Aspartate Amino Transf (AST/SGOT) 50 U/L (15-37) H Alanine Aminotransferase (ALT/SGPT) 45 U/L (12-78) Alkaline Phosphatase 106 U/L (46-116) Troponin I 0.082 ng/mL (0.000-0.056) Pro-B-Type Natriuretic Peptide 78123 pg/mL (0-125) H Total Protein 6.3 G/DL (6.4-8.2) L Albumin 1.6 G/DL (3.4-5.0) L Globulin 4.7 g/dL Albumin/Globulin Ratio 0.3 (1.0-2.7) L Random Vancomycin Level 17.3 ug/mL Test 11/30/19 09:49 Hepatitis B Surface Antigen Pending Hepatitis B Surface Antibody, Quant Pending Hepatitis C Antibody Pending Brandy Milton MD Nov 30, 2019 10:50
--- NOTE | 2019-11-30 10:59 | Infectious Diseases Prog Note ---
Assessment/Plan Assessment/Plan Assessment: Septic Shock- SP Pneumonia -11/30 sp cx:Interim marked worsening of bilateral pulmonary parenchymal disease, over one day -11/29 sp cx p -11/24 u/a neg; ucx neg Bcx NTD influenza sc neg CXR: Bilateral dense consolidation, likely pneumonia. Pulmonary edema also possible. Correlate with clinical findings sp cx ordered,not done legionella ag urine neg Gram positive bacteremia- contaminant vs real -11/27 Bcx 1/ GPC; 11/29 Bcx p Fever, SP Leukocytosis, increased ARDS Acute respiratory failure s/p intubation 11/24, sp extubation 11/29, now on bipap GANGA on CKD; now on HD 11/27 Elevated LFTs;improving Troponinemia Dm2 Gout s/p L BKA allergic rhinitis CAD s/p stent prosthetic AVR hx of esophagitis PVD chronic sCHF HLD HTN SNF resident Plan: -Continue empiric IV Vancomycin #7 -Switch Cefepime #7 to Meropenem pending sp cx -D/c empiric LEvaquin #7 -continue empiric Tamiflu #6/7 despite neg screen test -f/u cx -Monitor CBC/CMP, temperatures -f/u sp cx -ICU care -aspiration precautions -f/u Bcx x 2 (RIJ, peripheral) -Cdiff discussed with RN Thank you for this consultation. Will continue to follow along with you. Subjective Allergies: Coded Allergies: No Known Allergies (Unverified , 11/24/19) Subjective Tm 100.7 wbc increased extubated yesterday, now on bipap Objective Vital Signs Last 24 Hour Vital Signs Date Time Temp Pulse Resp B/P (MAP) Pulse Ox O2 Delivery O2 Flow Rate FiO2 11/30/19 10:00 81 18 126/66 (86) 98 11/30/19 09:00 83 18 133/64 (87) 95 11/30/19 08:47 45 11/30/19 08:41 87 18 100 45 11/30/19 08:35 87 140/58 11/30/19 08:00 88 11/30/19 08:00 Bi-pap Bi-pap Bi-pap 11/30/19 07:57 60 11/30/19 07:45 98.0 88 8 140/58 (85) 100 11/30/19 07:15 100 Bi-Pap 60 11/30/19 07:14 86 13 100 60 2/19/20 07:00 91 17 150/62 (91) 100 11/30/19 06:32 155/70 11/30/19 06:00 95 16 159/71 (100) 98 11/30/19 05:40 130/46 11/30/19 05:00 92 11 146/63 (90) 100 11/30/19 04:30 150/62 11/30/19 04:00 50 11/30/19 04:00 Bi-pap 11/30/19 04:00 98.2 94 15 148/68 (94) 100 11/30/19 04:00 92 11/30/19 03:36 92 18 100 60 11/30/19 03:00 94 20 144/79 (100) 100 11/30/19 02:00 92 22 146/70 (95) 100 11/30/19 01:41 91 14 100 60 11/30/19 01:00 93 23 134/54 (80) 100 11/30/19 00:28 140/64 11/30/19 00:00 102 11/30/19 00:00 Bi-pap 11/30/19 00:00 97.7 92 17 134/65 (88) 100 11/30/19 00:00 70 11/29/19 23:37 90 19 100 70 11/29/19 23:00 88 18 137/59 (85) 100 1820 22:31 132/57 11/29/19 22:00 89 18 123/52 (75) 100 11/29/19 21:34 98.8 11/29/19 21:14 92 18 100 85 11/29/19 21:04 101 153/65 21820 21:00 101 21 153/65 (94) 100 20 20:30 85 21820 20:00 100.7 103 23 126/59 (81) 100 11/29/19 20:00 102 11/29/19 20:00 Bi-pap 11/29/19 19:18 100 Bi-Pap 100 11/29/19 19:18 103 23 100 100 11/29/19 19:00 103 24 144/82 (102) 100 11/29/19 18:00 102 27 156/67 (96) 96 11/29/19 17:29 149/70 2 17:00 96 25 155/60 (91) 97 11/29/19 16:29 95 25 95 100 11/29/19 16:00 98.0 99 30 137/59 (85) 72 11/29/19 16:00 Bi-pap 11/29/19 16:00 100 11/29/19 16:00 95 11/29/19 15:14 90 20 93 Cool Aerosol 10.0 35 11/29/19 15:12 91 20 94 Cool Aerosol 10.0 35 90 20 91 11/29/19 15:00 90 25 145/64 (91) 93 11/29/19 14:00 86 19 142/69 (93) 93 11/29/19 13:32 141/61 11/29/19 13:00 86 20 141/61 (87) 95 11/29/19 12:00 85 11/29/19 12:00 98.0 82 22 135/60 (85) 99 11/29/19 12:00 10.0 35 11/29/19 12:00 Simple Mask 10.0 11/29/19 11:36 132/59 11/29/19 11:00 83 17 128/59 (82) 100 11/29/19 10:54 100 Cool Aerosol 10.0 35 11/29/19 10:53 Venturi Mask 10.0 35 Height (Feet): 5 Height (Inches): 8.00 Weight (Pounds): 240 Objective GENERAL: not in distress HEENT: Eyes, pupils are equal and responsive to light and accommodation. Extraocular movements are intact. NECK: Supple CHEST: no wheezes or rales. CARDIOVASCULAR: Regular rate. S1 and S2 normal without murmurs, rubs, or gallops. ABDOMEN: Soft, nontender, and nondistended. Positive bowel sounds. No evidence of hepatosplenomegaly. Currently, no rebound or guarding noted. EXTREMITIES: Negative for clubbing, cyanosis, or edema. Microbiology Date/Time Source Procedure Growth Status 11/27/19 14:45 Blood Blood Culture - Preliminary NO GROWTH AFTER 48 HOURS Resulted 11/27/19 14:00 Blood Blood Culture - Preliminary Gram Positive Cocci Resulted 11/29/19 03:30 Sputum Induced Gram Stain - Final Resulted 11/29/19 03:30 Sputum Induced Sputum Culture Pending Resulted Laboratory Tests Test 11/29/19 15:20 11/29/19 20:33 11/30/19 04:30 11/30/19 08:00 Arterial Blood pH 7.439 (7.350-7.450) 7.511 (7.350-7.450) 7.436 (7.350-7.450) Arterial Blood Partial Pressure CO2 31.9 mmHg (35.0-45.0) L 32.6 mmHg (35.0-45.0) L 40.7 mmHg (35.0-45.0) Arterial Blood Partial Pressure O2 < 45.3 mmHg (75.0-100.0) 156.1 mmHg (75.0-100.0) H 98.3 mmHg (75.0-100.0) Arterial Blood HCO3 21.1 mmol/L (22.0-26.0) L 25.5 mmol/L (22.0-26.0) 26.8 mmol/L (22.0-26.0) H Arterial Blood Oxygen Saturation 79.8 % (95-100) *L 98.5 % (95-100) 97.0 % (95-100) Arterial Blood Base Excess -2.5 (-2-2) L 2.6 (-2-2) H 2.4 (-2-2) H Garry Test Positive Positive Positive White Blood Count 20.6 K/UL (4.8-10.8) H Red Blood Count 2.89 M/UL (4.70-6.10) L Hemoglobin 8.3 G/DL (14.2-18.0) L Hematocrit 24.3 % (42.0-52.0) L Mean Corpuscular Volume 84 FL (80-99) Mean Corpuscular Hemoglobin 28.7 PG (27.0-31.0) Mean Corpuscular Hemoglobin Concent 34.2 G/DL (32.0-36.0) Red Cell Distribution Width 14.0 % (11.6-14.8) Platelet Count 181 K/UL (150-450) Mean Platelet Volume 5.5 FL (6.5-10.1) L Neutrophils (%) (Auto) % (45.0-75.0) Lymphocytes (%) (Auto) % (20.0-45.0) Monocytes (%) (Auto) % (1.0-10.0) Eosinophils (%) (Auto) % (0.0-3.0) Basophils (%) (Auto) % (0.0-2.0) Differential Total Cells Counted 100 Neutrophils % (Manual) 86 % (45-75) H Lymphocytes % (Manual) 2 % (20-45) L Monocytes % (Manual) 9 % (1-10) Eosinophils % (Manual) 3 % (0-3) Basophils % (Manual) 0 % (0-2) Band Neutrophils 0 % (0-8) Platelet Estimate Adequate Platelet Morphology Normal Hypochromasia 2+ Anisocytosis 1+ Spherocytes 1+ Sodium Level 142 MMOL/L (136-145) Potassium Level 3.9 MMOL/L (3.5-5.1) Chloride Level 104 MMOL/L (98-107) Carbon Dioxide Level 26 MMOL/L (21-32) Anion Gap 12 mmol/L (5-15) Blood Urea Nitrogen 70 mg/dL (7-18) H Creatinine 4.5 MG/DL (0.55-1.30) H Estimat Glomerular Filtration Rate 16.4 mL/min (>60) Glucose Level 143 MG/DL (74-106) H Calcium Level 9.1 MG/DL (8.5-10.1) Total Bilirubin 0.8 MG/DL (0.2-1.0) Aspartate Amino Transf (AST/SGOT) 50 U/L (15-37) H Alanine Aminotransferase (ALT/SGPT) 45 U/L (12-78) Alkaline Phosphatase 106 U/L (46-116) Troponin I 0.082 ng/mL (0.000-0.056) Pro-B-Type Natriuretic Peptide 28265 pg/mL (0-125) H Total Protein 6.3 G/DL (6.4-8.2) L Albumin 1.6 G/DL (3.4-5.0) L Globulin 4.7 g/dL Albumin/Globulin Ratio 0.3 (1.0-2.7) L Random Vancomycin Level 17.3 ug/mL Test 11/30/19 09:49 Hepatitis B Surface Antigen Pending Hepatitis B Surface Antibody, Quant Pending Hepatitis C Antibody Pending Current Medications Medications (Trade) Dose Ordered Sig/Valeriano Route PRN Reason Start Time Stop Time Status Last Admin Dose Admin Acetaminophen (Tylenol) 650 mg Q4H PRN NG Mild Pain/Temp > 100.5 11/29/19 08:00 12/29/19 07:59 11/30/19 10:08 Albuterol/ Ipratropium (Albuterol/ Ipratropium) 3 ml Q4H PRN HHN Shortness of Breath 11/29/19 15:15 12/04/19 15:14 11/29/19 15:17 Carvedilol (Coreg) 12.5 mg EVERY 12 HOURS NG 11/30/19 21:00 12/28/19 20:59 Cefepime HCl 2 gm/ Sodium Chloride 110 ml @ 220 mls/hr Q24H IV 11/30/19 21:00 12/01/19 20:59 Chlorhexidine Gluconate (Katia-Hex 2%) 1 applic DAILY@2000 TOPIC 11/25/19 20:00 12/25/19 19:59 11/29/19 20:41 Dextrose (Dextrose 50%) 25 ml Q30M PRN IV Hypoglycemia 11/24/19 13:30 12/24/19 13:29 Dextrose (Dextrose 50%) 50 ml Q30M PRN IV Hypoglycemia 11/24/19 13:30 12/24/19 13:29 Fentanyl Citrate 2500 mcg/Sodium Chloride 250 ml @ 0 mls/hr Q24H IV 11/24/19 20:00 12/01/19 19:59 11/24/19 19:54 Folic Acid (Folate) 5 mg DAILY GT 11/27/19 09:00 12/27/19 08:59 11/30/19 08:35 Heparin Sodium (Porcine) (Heparin 5000 units/ml) 5,000 units EVERY 12 HOURS SUBQ 11/24/19 21:00 12/24/19 20:59 11/30/19 08:39 Hydralazine HCl (Apresoline) 25 mg EVERY 6 HOURS GT 11/30/19 12:00 12/28/19 09:14 Hydralazine HCl (Apresoline) 25 mg EVERY 8 HOURS ORAL 11/28/19 09:15 11/30/19 12:00 11/30/19 05:40 Insulin Aspart (NovoLOG) BEFORE MEALS AND HS SUBQ 11/24/19 16:30 12/24/19 16:29 11/29/19 05:57 Isosorbide Dinitrate (Isordil) 10 mg Q6HR ORAL 11/28/19 12:00 12/28/19 11:59 11/30/19 06:32 Lansoprazole (Prevacid) 30 mg BID NG 11/30/19 18:00 12/30/19 17:59 Levofloxacin (Levaquin) 500 mg Q48H ORAL 11/27/19 13:00 12/02/19 12:59 11/29/19 13:32 Lorazepam (Ativan 2mg/ml 1ml) 2 mg Q4H PRN IV For Anxiety 11/24/19 15:15 12/01/19 15:14 11/27/19 18:03 Morphine Sulfate (Morphine Sulfate) 2 mg Q4H PRN IVP Severe Pain (Pain Scale 7-10) 11/29/19 13:15 12/06/19 13:14 11/29/19 13:28 Nitroglycerin (Ntg) 0.4 mg Q5M PRN SL Prn Chest Pain 11/24/19 09:30 12/24/19 09:29 11/24/19 09:23 Norepinephrine Bitartrate 8 mg/ Dextrose 500 ml @ 0 mls/hr Q24H IV 11/25/19 04:30 12/25/19 04:29 11/25/19 04:54 Ondansetron HCl (Zofran) 4 mg Q6H PRN IVP Nausea & Vomiting 11/24/19 13:30 12/24/19 13:29 Oseltamivir Phosphate (Tamiflu) 30 mg DAILY ORAL 11/25/19 13:00 12/01/19 12:59 11/30/19 08:36 Polyethylene Glycol (Miralax) 17 gm DAILYPRN PRN ORAL Constipation 11/24/19 13:30 12/24/19 13:29 Promethazine HCl/ Codeine (Phenergan with Codeine) 5 ml Q4H PRN ORAL For Cough 11/24/19 13:30 12/24/19 13:29 Vancomycin HCl (Vanco rx to dose) 1 ea DAILY PRN MISC . 11/24/19 13:30 12/24/19 13:29 Vancomycin HCl 1 gm/Sodium Chloride 275 ml @ 183.708 mls/hr ONCE ONCE IVPB 11/30/19 10:00 11/30/19 11:29 11/30/19 09:58 Yojana Bennett M.D. Nov 30, 2019 10:59
[2019-11-30] MEDS: HydrALAZINE 25mg tab GT SCH ×3 (11:31→23:55)
--- NOTE | 2019-11-30 11:31 | NUR ---
NURSE NOTES: Patient blood pressure trending down this morning. BP 113/52. Hydralazine and isosorbide dinitrate held at this time due to patient having hemodialysis today and blood pressure trending low.
--- NOTE | 2019-11-30 12:00 | NUR ---
NURSE NOTES: Patient alert to name, place, and purpose. Patient denies distress at this time. Patient on BiPAP 15/7 with 45% FiO2. R nares nasal gastric tube noted at 75cm. Patient remains NPO. Blood sugar remains stable. Cruz remains in place, patent, and asymptomatic. Right femoral Chris catheter remains asymptomatic and dressing dry and intact. Right internal jugular triple lumen catheter remains patent, asymptomatic, and saline locked. Generalized edema with +2 pitting in right leg. Low air loss mattress has not arrived on the floor yet. Received records from [facility]. Patient bed in low position with bed alarm on and call light in reach at this time. Oral care and repositioning done. Will continue to monitor.
[2019-11-30] MEDS: Meropenem 500 MG in NS 55 ML IVPB SCH (13:11)
--- NOTE | 2019-11-30 15:12 | NUR ---
*-* INSURANCE *-* ALL CLINICALS AND REVIEWS HAVE BEEN FAXED TO: [facility] [phone] REPORTED TO: JACLYN AUTH# [id number] NCM: JARRED GONSALVES NO PHONE NUMBER FOR [facility] FAX ALL CLINICALS TO: [phone]
--- NOTE | 2019-11-30 15:15 | NUR ---
NURSE NOTES: Patient became distressed and started shifting in the bed and grabbing the IV pole to pull himself up. It was deduced that patient was short of breath. FiO2 increased to 100% until hemodialysis complete. Patient remains on BiPAP 25/04. Patient calm and comfortable and back to baseline now. Will continue to monitor.
--- NOTE | 2019-11-30 16:00 | NUR ---
NURSE NOTES: Patient alert to name and place. Patient only answers some questions and is not speaking at this time. He chooses to answer questions by motioning and nodding/shaking his head. Patient denies distress at this time. Patient on BiPAP 15/7 with 100% FiO2. Patient still on dialysis at this time. R nares nasal gastric tube noted at 75cm. Patient remains NPO. Blood sugar remains stable. Cruz remains in place, patent, and asymptomatic. Right femoral Chris catheter remains asymptomatic and dressing dry and intact. Right internal jugular triple lumen catheter remains patent, asymptomatic, and saline locked. Generalized edema with +2 pitting in right leg. Low air loss mattress in place and intact. Patient bed in low position with bed alarm on and call light in reach at this time. Oral care and repositioning done. Will continue to monitor.
--- NOTE | 2019-11-30 16:12 | NUR ---
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 97.9 HR 75 RR 14 B/P 113/53 BIPAP 15/5 FIO2 35% TROP 0.082 BNP 51174 WBC 20.6 IS: MEROPENEM IV HEPARIN SUBC ICU STATUS
--- NOTE | 2019-11-30 18:00 | NUR ---
NURSE NOTES: Patient calm and quiet at this time. Patient remains on BiPAP 15/7 with FiO2 100% with no sign of acute respiratory distress. Patient repositioned and bed bath performed. Will continue to monitor.
--- NOTE | 2019-11-30 19:00 | NUR ---
HAND-OFF: Report given to YUKI Zendejas. Patient on BiPAP 15/7 at 100% FiO2. Patient restless at this time. Patient repositioned. Endorsed to follow up.
--- NOTE | 2019-11-30 19:15 | NUR ---
NURSE NOTES: Received pt from Krystin Hernandez RN. pt is observed in bed, AO X2, restless at this time. repositioned pt with pillow support. pt denies pain at this time. pt is on BiPAP with current settings of 15/7, FiO2: 100%. bus monitor shows NSR; no acute cardiac distress noted at this time. NGT noted in R nare, marked at 75 [address]. verified [address] via auscultation. F/C is patent and intact, draining light cruzito urine to gravity. skin alterations noted. pitting edema noted on RLE. Right femoral Chris catheter noted, patent and intact; dressing dry and intact. RIJ TLC noted to be patent, intact, and asymptomatic; running fluids TKO at this time. bed in lowest position and locked, siderails up X3, call light within reach. will continue to monitor.
[2019-11-30] MEDS: Albuterol/Ipratropium 3ml neb HHN PRN (19:19)
--- NOTE | 2019-11-30 19:34 | Internal Med Progress Note ---
Subjective Date of Service: Nov 30, 2019 Physician Name Sidney Galaviz Attending Physician Cezar Ceja MD Current Medications Medications (Trade) Dose Ordered Sig/Valeriano Route PRN Reason Start Time Stop Time Status Last Admin Dose Admin Acetaminophen (Tylenol) 650 mg Q4H PRN NG Mild Pain/Temp > 100.5 11/29/19 08:00 12/29/19 07:59 11/30/19 17:37 Albuterol/ Ipratropium (Albuterol/ Ipratropium) 3 ml Q4H PRN HHN Shortness of Breath 11/29/19 15:15 12/04/19 15:14 11/30/19 19:19 Carvedilol (Coreg) 12.5 mg EVERY 12 HOURS NG 11/30/19 21:00 12/28/19 20:59 Chlorhexidine Gluconate (Katia-Hex 2%) 1 applic DAILY@2000 TOPIC 11/25/19 20:00 12/25/19 19:59 11/29/19 20:41 Dextrose (Dextrose 50%) 25 ml Q30M PRN IV Hypoglycemia 11/24/19 13:30 12/24/19 13:29 Dextrose (Dextrose 50%) 50 ml Q30M PRN IV Hypoglycemia 11/24/19 13:30 12/24/19 13:29 Fentanyl Citrate 2500 mcg/Sodium Chloride 250 ml @ 0 mls/hr Q24H IV 11/24/19 20:00 12/01/19 19:59 11/24/19 19:54 Folic Acid (Folate) 5 mg DAILY GT 11/27/19 09:00 12/27/19 08:59 11/30/19 08:35 Heparin Sodium (Porcine) (Heparin 5000 units/ml) 5,000 units EVERY 12 HOURS SUBQ 11/24/19 21:00 12/24/19 20:59 11/30/19 08:39 Hydralazine HCl (Apresoline) 25 mg EVERY 6 HOURS GT 11/30/19 12:00 12/28/19 09:14 11/30/19 17:37 Insulin Aspart (NovoLOG) BEFORE MEALS AND HS SUBQ 11/24/19 16:30 12/24/19 16:29 11/29/19 05:57 Isosorbide Dinitrate (Isordil) 10 mg Q6HR ORAL 11/28/19 12:00 12/28/19 11:59 11/30/19 17:38 Lansoprazole (Prevacid) 30 mg BID NG 11/30/19 18:00 12/30/19 17:59 11/30/19 17:38 Lorazepam (Ativan 2mg/ml 1ml) 2 mg Q4H PRN IV For Anxiety 11/24/19 15:15 12/01/19 15:14 11/27/19 18:03 Meropenem 500 mg/ Sodium Chloride 55 ml @ 110 mls/hr Q24H IVPB 11/30/19 12:00 12/05/19 11:59 11/30/19 13:11 Morphine Sulfate (Morphine Sulfate) 2 mg Q4H PRN IVP Severe Pain (Pain Scale 7-10) 11/29/19 13:15 12/06/19 13:14 11/29/19 13:28 Nitroglycerin (Ntg) 0.4 mg Q5M PRN SL Prn Chest Pain 11/24/19 09:30 12/24/19 09:29 11/24/19 09:23 Norepinephrine Bitartrate 8 mg/ Dextrose 500 ml @ 0 mls/hr Q24H IV 11/25/19 04:30 12/25/19 04:29 11/25/19 04:54 Ondansetron HCl (Zofran) 4 mg Q6H PRN IVP Nausea & Vomiting 11/24/19 13:30 12/24/19 13:29 Oseltamivir Phosphate (Tamiflu) 30 mg DAILY ORAL 11/25/19 13:00 12/01/19 12:59 11/30/19 08:36 Polyethylene Glycol (Miralax) 17 gm DAILYPRN PRN ORAL Constipation 11/24/19 13:30 12/24/19 13:29 Promethazine HCl/ Codeine (Phenergan with Codeine) 5 ml Q4H PRN ORAL For Cough 11/24/19 13:30 12/24/19 13:29 Vancomycin HCl (Vanco rx to dose) 1 ea DAILY PRN MISC . 11/24/19 13:30 12/24/19 13:29 Allergies: Coded Allergies: No Known Allergies (Unverified , 11/24/19) ROS Limited/Unobtainable: Yes Subjective 59 YO M admitted with respirtory failure. Cover for Int Med-Dr Marcial. BIPAP. ICU. Objective Last Vital Signs Date Time Temp Pulse Resp B/P (MAP) Pulse Ox O2 Delivery O2 Flow Rate FiO2 11/30/19 19:19 92 16 100 Bi-Pap 100 89 15 100 11/30/19 18:00 142/62 (88) 11/30/19 16:00 98.4 11/29/19 15:14 10.0 Laboratory Tests Test 11/29/19 20:33 11/30/19 04:30 11/30/19 08:00 11/30/19 09:49 Arterial Blood pH 7.511 (7.350-7.450) 7.436 (7.350-7.450) Arterial Blood Partial Pressure CO2 32.6 mmHg (35.0-45.0) L 40.7 mmHg (35.0-45.0) Arterial Blood Partial Pressure O2 156.1 mmHg (75.0-100.0) H 98.3 mmHg (75.0-100.0) Arterial Blood HCO3 25.5 mmol/L (22.0-26.0) 26.8 mmol/L (22.0-26.0) H Arterial Blood Oxygen Saturation 98.5 % (95-100) 97.0 % (95-100) Arterial Blood Base Excess 2.6 (-2-2) H 2.4 (-2-2) H Garry Test Positive Positive White Blood Count 20.6 K/UL (4.8-10.8) H Red Blood Count 2.89 M/UL (4.70-6.10) L Hemoglobin 8.3 G/DL (14.2-18.0) L Hematocrit 24.3 % (42.0-52.0) L Mean Corpuscular Volume 84 FL (80-99) Mean Corpuscular Hemoglobin 28.7 PG (27.0-31.0) Mean Corpuscular Hemoglobin Concent 34.2 G/DL (32.0-36.0) Red Cell Distribution Width 14.0 % (11.6-14.8) Platelet Count 181 K/UL (150-450) Mean Platelet Volume 5.5 FL (6.5-10.1) L Neutrophils (%) (Auto) % (45.0-75.0) Lymphocytes (%) (Auto) % (20.0-45.0) Monocytes (%) (Auto) % (1.0-10.0) Eosinophils (%) (Auto) % (0.0-3.0) Basophils (%) (Auto) % (0.0-2.0) Differential Total Cells Counted 100 Neutrophils % (Manual) 86 % (45-75) H Lymphocytes % (Manual) 2 % (20-45) L Monocytes % (Manual) 9 % (1-10) Eosinophils % (Manual) 3 % (0-3) Basophils % (Manual) 0 % (0-2) Band Neutrophils 0 % (0-8) Platelet Estimate Adequate Platelet Morphology Normal Hypochromasia 2+ Anisocytosis 1+ Spherocytes 1+ Sodium Level 142 MMOL/L (136-145) Potassium Level 3.9 MMOL/L (3.5-5.1) Chloride Level 104 MMOL/L (98-107) Carbon Dioxide Level 26 MMOL/L (21-32) Anion Gap 12 mmol/L (5-15) Blood Urea Nitrogen 70 mg/dL (7-18) H Creatinine 4.5 MG/DL (0.55-1.30) H Estimat Glomerular Filtration Rate 16.4 mL/min (>60) Glucose Level 143 MG/DL (74-106) H Calcium Level 9.1 MG/DL (8.5-10.1) Total Bilirubin 0.8 MG/DL (0.2-1.0) Aspartate Amino Transf (AST/SGOT) 50 U/L (15-37) H Alanine Aminotransferase (ALT/SGPT) 45 U/L (12-78) Alkaline Phosphatase 106 U/L (46-116) Troponin I 0.082 ng/mL (0.000-0.056) Pro-B-Type Natriuretic Peptide 90739 pg/mL (0-125) H Total Protein 6.3 G/DL (6.4-8.2) L Albumin 1.6 G/DL (3.4-5.0) L Globulin 4.7 g/dL Albumin/Globulin Ratio 0.3 (1.0-2.7) L Random Vancomycin Level 17.3 ug/mL Hepatitis B Surface Antigen Pending Hepatitis B Surface Antibody, Quant Pending Hepatitis C Antibody Pending Microbiology Date/Time Source Procedure Growth Status 11/29/19 03:30 Sputum Induced Gram Stain - Final Resulted 11/29/19 03:30 Sputum Culture - Preliminary Gram Negative Bacillus 1 Resulted Intake and Output 11/29/19 11/30/19 19:00 07:00 Intake Total 0 ml 2110 ml Output Total 200 ml 200 ml Balance -200 ml 1910 ml IV Total 110 ml Tube Feeding 0 ml 0 ml Hemodialysis 2000 ml Output Urine Total 200 ml 200 ml Objective PHYSICAL EXAMINATION: GENERAL: The patient is a well-developed and well-nourished male, in moderate respiratory distress. HEENT: Eyes, pupils are equal and responsive to light and accommodation. Extraocular movements are intact. NECK: Supple without lymphadenopathy. CHEST: BIPAP; Mechanical breath sounds, otherwise without wheezes or rales. CARDIOVASCULAR: Regular rate. S1 and S2 normal without murmurs, rubs, or gallops. ABDOMEN: Soft, nontender, and nondistended. Positive bowel sounds. No evidence of hepatosplenomegaly. Currently, no rebound or guarding noted. EXTREMITIES: Negative for clubbing, cyanosis, or edema. RECTAL/GENITAL: Refused. NEUROLOGIC: Cranial nerves II through XII are grossly intact without focal deficits. Assessment/Plan Assessment/Plan ASSESSMENT: This is a 59-year-old male. 1. Respiratory failure. 2. Pneumonia. 3. Probable sepsis. 4. Diabetes type 2. 5. Hypertension. 6. Hypercholesterolemia. TREATMENT: 1. Respiratory failure/pneumonia. The patient is currently on BIPAP in the intensive care unit. A Pulmonary consultation has been obtained with Dr. Brandy Milton. ABX=vancomycin, Levaquin and cefepime to cover healthcare-associated pneumonia. Continue Tamiflu per ID=Dr Andrade. We will follow recommendations of Pulmonary. Sputum cultures are pending at this time. 2. Probable sepsis. Blood cultures are pending. As above, the patient has been placed empirically on vancomycin and cefepime. 3. Diabetes type 2. A NovoLog sliding scale has been instituted. 4. Hypertension. The patient is currently hypotensive. Hold antihypertensive medication. 5. Hypercholesterolemia. Continue atorvastatin as above. Sidney Galaviz MD Nov 30, 2019 19:34
[2019-11-30] MEDS: fentaNYL Citrate 2500mcg in NS 250ml IV SCH (20:00)
[2019-11-30] MEDS: Dyna-Hex 2% Top Sol 2oz TOPIC SCH (20:37)
[2019-11-30] MEDS: Carvedilol 12.5mg tab NG SCH (20:37)
[2019-11-30] MEDS ORDERED: Cefepime HCl 2 GM in NS 110 ML IV SCH (21:00)
--- NOTE | 2019-11-30 21:30 | NUR ---
NURSE NOTES: all due meds given. blood sugar noted to be 114. pt denies pain and SOB at this time. will continue to monitor.
--- NOTE | 2019-11-30 22:00 | NUR ---
NURSE NOTES: pt appears to be sleeping at this time. no s/sx of discomfort noted. will continue to monitor.
[2019-12-01] VITALS (25 sets, daily range): BP systolic 118–180; BP diastolic 46–78
--- NOTE | 2019-12-01 00:05 | NUR ---
NURSE NOTES: all due meds given. pt repositioned with pillow support. pt tolerated well. pt's family member at bedside at this time. pt shows no s/sx of discomfort at this time. will continue to monitor.
--- NOTE | 2019-12-01 02:07 | NUR ---
NURSE NOTES: pt appeared restless in bed. repositioned pt with pillow support. pt appears to be relaxed at this time. will continue to monitor.
--- NOTE | 2019-12-01 04:00 | NUR ---
NURSE NOTES: CHG bath given. new gown and new linens applied. pt repositioned with pillow support. pt tolerated well. no distress noted at this time. will continue to monitor.
[2019-12-01 05:58] LABS: ALANINE AMINOTRANSFERASE 38 U/L (12-78); ALBUMIN 1.6 G/DL (3.4-5.0); ALBUMIN/GLOBULIN RATIO 0.3 (1.0-2.7); ALKALINE PHOSPHATASE 100 U/L (46-116); ANION GAP 14 mmol/L (5-15); ASPARTATE AMINO TRANSFERASE 40 U/L (15-37); BILIRUBIN,TOTAL 0.8 MG/DL (0.2-1.0); BLOOD UREA NITROGEN 52 mg/dL (7-18); CALCIUM 9.2 MG/DL (8.5-10.1); CARBON DIOXIDE 27 MMOL/L (21-32); CHLORIDE 104 MMOL/L (98-107); CREATININE 3.9 MG/DL (0.55-1.30); PHOSPHORUS 3.5 MG/DL (2.5-4.9); POTASSIUM 3.5 MMOL/L (3.5-5.1); SODIUM 145 MMOL/L (136-145)
[2019-12-01 06:13] LABS: HEMATOCRIT 23.7 % (42.0-52.0); HEMOGLOBIN 8.1 G/DL (14.2-18.0); MEAN CORPUSCULAR VOLUME 85 FL (80-99); PLATELET COUNT 210 K/UL (150-450); WHITE BLOOD COUNT 18.3 K/UL (4.8-10.8)
[2019-12-01] MEDS: HydrALAZINE 25mg tab GT SCH ×3 (06:13→18:00)
--- NOTE | 2019-12-01 06:15 | NUR ---
NURSE NOTES: blood glucose is 122 at this time. pt appears relaxed at this time. no s/sx of distress noted at this time. IV fluids and tubings changed. bed remains in lowest position and locked, siderails up X3, call light within reach. HOB elevated to 30 degrees. will continue to monitor.
[2019-12-01] MEDS: NovoLOG Insulin Flexpen SUBQ SCH ×4 (06:30→21:00)
--- NOTE | 2019-12-01 07:00 | NUR ---
RESPIRATORY NOTES: Received Patient n BIPAP 15/7 PS +12 FIO2 60%. Patient currently on Facial mask, tape in place. No redness or skin breakdown noted. Patient currently asleep. Vent plugged into red outlet. Alarms are on and audible. Will continue to monitor throughout the night. Addendum: 12/01/19 at 0722 by TIEN MENJIVAR RT *Day
--- NOTE | 2019-12-01 07:33 | NUR ---
HAND-OFF: Report given to Keshav Calles RN. endorsed plan of care.
--- NOTE | 2019-12-01 08:37 | Nephrology Progress Note ---
Assessment/Plan Problem List: (1) ARF (acute renal failure) (2) Acute respiratory failure (3) Septic shock (4) Anemia (5) History of hypertension (6) Diabetes mellitus (7) Acute on chronic systolic heart failure Assessment: ej Fx 40 Assessment Acute renal failure- ? Underlying CKD Respiratory failure Anemia Sepsis / Shock ? Pneumonia DM HTN by history Gout left BKA Cardiomyopathy - Ej Fx 40% Plan Plan: HD 11/30 ( 4th in a row), next 12/02 was transfused on coreg increase hydralazine discussed with ICU pharmacist in charge DC IV previously DC Hydrocortisone Antibiotics urine studies avoid nephrotoxics monitor renal parameters Anemia hairston per orders Subjective ROS Limited/Unobtainable: No Constitutional: Reports: malaise, weakness Objective Objective Last 24 Hour Vital Signs Date Time Temp Pulse Resp B/P (MAP) Pulse Ox O2 Delivery O2 Flow Rate FiO2 12/01/19 07:00 96 12 147/62 (90) 100 12/01/19 06:59 95 12 100 60 12/01/19 06:59 100 Bi-Pap 60 12/01/19 06:13 154/53 12/01/19 06:12 154/53 12/01/19 06:00 96 15 154/53 (86) 100 12/01/19 05:17 94 18 100 100 12/01/19 05:00 98 16 145/72 (96) 100 12/01/19 04:30 151/64 12/01/19 04:00 100 12/01/19 04:00 98.8 97 12 156/69 (98) 100 12/01/19 04:00 Bi-pap Bi-pap Bi-pap 12/01/19 04:00 96 12/01/19 03:00 95 16 151/64 (93) 100 12/01/19 02:37 91 17 100 100 12/01/19 02:00 95 14 137/57 (83) 100 12/01/19 01:00 98 20 141/51 (81) 100 12/01/19 00:57 95 18 100 100 12/01/19 00:00 Bi-pap Bi-pap Bi-pap 12/01/19 00:00 96 12/01/19 00:00 98.4 97 25 146/69 (94) 100 11/30/19 23:55 148/69 11/30/19 23:55 148/69 11/30/19 23:00 97 13 157/61 (93) 100 11/30/19 22:59 91 18 100 100 11/30/19 22:00 94 13 152/73 (99) 100 11/30/19 21:00 92 10 141/58 (85) 100 11/30/19 21:00 100 11/30/19 20:40 94 16 100 100 11/30/19 20:37 96 155/71 11/30/19 20:00 97 11/30/19 20:00 98.2 97 15 156/59 (91) 100 11/30/19 20:00 Bi-pap Bi-pap Bi-pap 11/30/19 19:19 92 16 100 Bi-Pap 100 89 15 100 11/30/19 19:17 100 Bi-Pap 100 11/30/19 19:17 92 15 100 100 11/30/19 19:00 89 17 128/106 (113) 100 11/30/19 18:00 91 15 142/62 (88) 100 11/30/19 17:38 165/65 11/30/19 17:37 165/65 11/30/19 17:22 90 16 100 100 11/30/19 17:00 88 19 159/65 (96) 100 11/30/19 16:00 88 11/30/19 16:00 98.4 89 16 139/65 (89) 100 11/30/19 16:00 Bi-pap Bi-pap Bi-pap 11/30/19 16:00 100 11/30/19 15:00 88 13 149/68 (95) 100 11/30/19 14:00 83 13 135/61 (85) 100 11/30/19 13:29 79 13 100 35 11/30/19 13:00 75 14 121/60 (80) 100 11/30/19 12:00 97.9 72 20 113/53 (73) 100 11/30/19 12:00 77 11/30/19 12:00 Bi-pap Bi-pap Bi-pap 11/30/19 11:31 113/52 11/30/19 11:31 113/52 11/30/19 11:24 72 16 100 45 11/30/19 11:00 77 15 118/52 (74) 100 11/30/19 10:00 81 18 126/66 (86) 98 11/30/19 09:00 83 18 133/64 (87) 95 11/30/19 08:47 45 11/30/19 08:41 87 18 100 45 Intake and Output 11/30/19 12/01/19 19:00 07:00 Intake Total 2330.000 ml Output Total 180 ml 265 ml Balance 2150.000 ml -265 ml IV Total 330.000 ml Hemodialysis 2000 ml Output Urine Total 180 ml 265 ml Current Medications Medications (Trade) Dose Ordered Sig/Valeriano Route PRN Reason Start Time Stop Time Status Last Admin Dose Admin Acetaminophen (Tylenol) 650 mg Q4H PRN NG Mild Pain/Temp > 100.5 11/29/19 08:00 12/29/19 07:59 11/30/19 17:37 Albuterol/ Ipratropium (Albuterol/ Ipratropium) 3 ml Q4H PRN HHN Shortness of Breath 11/29/19 15:15 12/04/19 15:14 11/30/19 19:19 Carvedilol (Coreg) 12.5 mg EVERY 12 HOURS NG 11/30/19 21:00 12/28/19 20:59 11/30/19 20:37 Chlorhexidine Gluconate (Katia-Hex 2%) 1 applic DAILY@2000 TOPIC 11/25/19 20:00 12/25/19 19:59 11/30/19 20:37 Dextrose (Dextrose 50%) 25 ml Q30M PRN IV Hypoglycemia 11/24/19 13:30 12/24/19 13:29 Dextrose (Dextrose 50%) 50 ml Q30M PRN IV Hypoglycemia 11/24/19 13:30 12/24/19 13:29 Fentanyl Citrate 2500 mcg/Sodium Chloride 250 ml @ 0 mls/hr Q24H IV 11/24/19 20:00 12/01/19 19:59 11/24/19 19:54 Folic Acid (Folate) 5 mg DAILY GT 11/27/19 09:00 12/27/19 08:59 11/30/19 08:35 Heparin Sodium (Porcine) (Heparin 5000 units/ml) 5,000 units EVERY 12 HOURS SUBQ 11/24/19 21:00 12/24/19 20:59 11/30/19 20:46 Hydralazine HCl (Apresoline) 25 mg EVERY 6 HOURS GT 11/30/19 12:00 12/28/19 09:14 12/01/19 06:13 Insulin Aspart (NovoLOG) BEFORE MEALS AND HS SUBQ 11/24/19 16:30 12/24/19 16:29 11/29/19 05:57 Isosorbide Dinitrate (Isordil) 10 mg Q6HR ORAL 11/28/19 12:00 12/28/19 11:59 12/01/19 06:12 Lansoprazole (Prevacid) 30 mg BID NG 11/30/19 18:00 12/30/19 17:59 11/30/19 17:38 Lorazepam (Ativan 2mg/ml 1ml) 2 mg Q4H PRN IV For Anxiety 11/24/19 15:15 12/01/19 15:14 11/27/19 18:03 Meropenem 500 mg/ Sodium Chloride 55 ml @ 110 mls/hr Q24H IVPB 11/30/19 12:00 12/05/19 11:59 11/30/19 13:11 Morphine Sulfate (Morphine Sulfate) 2 mg Q4H PRN IVP Severe Pain (Pain Scale 7-10) 11/29/19 13:15 12/06/19 13:14 11/29/19 13:28 Nitroglycerin (Ntg) 0.4 mg Q5M PRN SL Prn Chest Pain 11/24/19 09:30 12/24/19 09:29 11/24/19 09:23 Norepinephrine Bitartrate 8 mg/ Dextrose 500 ml @ 0 mls/hr Q24H IV 11/25/19 04:30 12/25/19 04:29 11/25/19 04:54 Ondansetron HCl (Zofran) 4 mg Q6H PRN IVP Nausea & Vomiting 11/24/19 13:30 12/24/19 13:29 Oseltamivir Phosphate (Tamiflu) 30 mg DAILY ORAL 11/25/19 13:00 12/01/19 12:59 11/30/19 08:36 Polyethylene Glycol (Miralax) 17 gm DAILYPRN PRN ORAL Constipation 11/24/19 13:30 12/24/19 13:29 Promethazine HCl/ Codeine (Phenergan with Codeine) 5 ml Q4H PRN ORAL For Cough 11/24/19 13:30 12/24/19 13:29 Vancomycin HCl (Vanco rx to dose) 1 ea DAILY PRN MISC . 11/24/19 13:30 12/24/19 13:29 Laboratory Tests 11/30/19 09:49: Hepatitis B Surface Antigen [Pending], Hepatitis B Surface Antibody, Quant [ Pending], Hepatitis C Antibody [Pending] 12/01/19 05:11: White Blood Count 18.3H, Red Blood Count 2.80L, Hemoglobin 8.1L, Hematocrit 23.7L, Mean Corpuscular Volume 85, Mean Corpuscular Hemoglobin 29.1, Mean Corpuscular Hemoglobin Concent 34.3, Red Cell Distribution Width 14.0, Platelet Count 210, Mean Platelet Volume 5.1L, Neutrophils (%) (Auto) , Lymphocytes (%) ( Auto) , Monocytes (%) (Auto) , Eosinophils (%) (Auto) , Basophils (%) (Auto) , Neutrophils % (Manual) [Pending], Lymphocytes % (Manual) [Pending], Platelet Estimate [Pending], Platelet Morphology [Pending], Sodium Level 145, Potassium Level 3.5, Chloride Level 104, Carbon Dioxide Level 27, Anion Gap 14, Blood Urea Nitrogen 52H, Creatinine 3.9H, Estimat Glomerular Filtration Rate 19.4, Glucose Level 130H, Calcium Level 9.2, Phosphorus Level 3.5, Magnesium Level 2.0 , Total Bilirubin 0.8, Aspartate Amino Transf (AST/SGOT) 40H, Alanine Aminotransferase (ALT/SGPT) 38, Alkaline Phosphatase 100, Total Protein 6.3L, Albumin 1.6L, Globulin 4.7, Albumin/Globulin Ratio 0.3L Height (Feet): 5 Height (Inches): 8.00 Weight (Pounds): 240 General Appearance: mild distress EENT: other - BIPAP Cardiovascular: tachycardia Respiratory/Chest: decreased breath sounds Abdomen: distended Tej Sidhu MD Dec 01, 2019 08:37
--- NOTE | 2019-12-01 09:00 | NUR ---
RADIOLOGY DEPT., CHEST X-RAY DONE.-P.DYE
[2019-12-01] MEDS: Carvedilol 12.5mg tab NG SCH ×2 (09:48→20:24)
[2019-12-01] MEDS: Heparin 5000 units/ml inj SUBQ SCH ×2 (09:49→20:25)
--- NOTE | 2019-12-01 10:09 | Infectious Diseases Prog Note ---
Assessment/Plan Assessment/Plan Assessment: Septic Shock- SP Pneumonia -11/30 sp cx:Interim marked worsening of bilateral pulmonary parenchymal disease, over one day -11/29 sp cx ESBL E.coli (S zosyn, Imipenem, bactrim) -11/24 u/a neg; ucx neg Bcx NTD influenza sc neg CXR: Bilateral dense consolidation, likely pneumonia. Pulmonary edema also possible. Correlate with clinical findings sp cx ordered,not done legionella ag urine neg Gram positive bacteremia- contaminant -11/27 Bcx / S. hominis; 11/29 Bcx NTD Fever, improving Leukocytosis, increased, now improving ARDS Acute respiratory failure s/p intubation 11/24, sp extubation 11/29, now on bipap GANGA on CKD; now on HD 11/27 Elevated LFTs;improving Troponinemia Dm2 Gout s/p L BKA allergic rhinitis CAD s/p stent prosthetic AVR hx of esophagitis PVD chronic sCHF HLD HTN SNF resident Plan: -Dc empiric IV Vancomycin #8 -Continue empiric Meropenem #2 for ESBL E.coli PNA -continue empiric Tamiflu #7/7 despite neg screen test -11/30 SP LEvaquin #7, Cefepime #7 -f/u cx -Monitor CBC/CMP, temperatures -f/u sp cx -ICU care -aspiration precautions -f/u Bcx x 2 (RIJ, peripheral) -Cdiff discussed with RN Thank you for this consultation. Will continue to follow along with you. Subjective Allergies: Coded Allergies: No Known Allergies (Unverified , 11/24/19) Subjective afebrile >36hrs wbc improving repeat Bcx NTD on bipap Objective Vital Signs Last 24 Hour Vital Signs Date Time Temp Pulse Resp B/P (MAP) Pulse Ox O2 Delivery O2 Flow Rate FiO2 12/01/19 10:00 86 18 129/51 (77) 100 12/01/19 09:48 89 140/60 12/01/19 09:16 91 14 100 60 12/01/19 09:00 91 16 140/58 (85) 100 12/01/19 08:00 97.6 90 14 147/62 (90) 100 12/01/19 07:00 96 12 147/62 (90) 100 12/01/19 06:59 95 12 100 60 12/01/19 06:59 100 Bi-Pap 60 12/01/19 06:13 154/53 12/01/19 06:12 154/53 12/01/19 06:00 96 15 154/53 (86) 100 12/01/19 05:17 94 18 100 100 12/01/19 05:00 98 16 145/72 (96) 100 12/01/19 04:30 151/64 12/01/19 04:00 100 12/01/19 04:00 98.8 97 12 156/69 (98) 100 12/01/19 04:00 Bi-pap Bi-pap Bi-pap 12/01/19 04:00 96 12/01/19 03:00 95 16 151/64 (93) 100 12/01/19 02:37 91 17 100 100 12/01/19 02:00 95 14 137/57 (83) 100 12/01/19 01:00 98 20 141/51 (81) 100 12/01/19 00:57 95 18 100 100 12/01/19 00:00 Bi-pap Bi-pap Bi-pap 12/01/19 00:00 96 12/01/19 00:00 98.4 97 25 146/69 (94) 100 11/30/19 23:55 148/69 11/30/19 23:55 148/69 11/30/19 23:00 97 13 157/61 (93) 100 11/30/19 22:59 91 18 100 100 11/30/19 22:00 94 13 152/73 (99) 100 11/30/19 21:00 92 10 141/58 (85) 100 11/30/19 21:00 100 11/30/19 20:40 94 16 100 100 20 20:37 96 155/71 11/30/19 20:00 97 11/30/19 20:00 98.2 97 15 156/59 (91) 100 11/30/19 20:00 Bi-pap Bi-pap Bi-pap 11/30/19 19:19 92 16 100 Bi-Pap 100 89 15 100 11/30/19 19:17 100 Bi-Pap 100 11/30/19 19:17 92 15 100 100 11/30/19 19:00 89 17 128/106 (113) 100 11/30/19 18:00 91 15 142/62 (88) 100 11/30/19 17:38 165/65 11/30/19 17:37 165/65 11/30/19 17:22 90 16 100 100 11/30/19 17:00 88 19 159/65 (96) 100 11/30/19 16:00 88 11/30/19 16:00 98.4 89 16 139/65 (89) 100 11/30/19 16:00 Bi-pap Bi-pap Bi-pap 11/30/19 16:00 100 11/30/19 15:00 88 13 149/68 (95) 100 11/30/19 14:00 83 13 135/61 (85) 100 11/30/19 13:29 79 13 100 35 11/30/19 13:00 75 14 121/60 (80) 100 11/30/19 12:00 97.9 72 20 113/53 (73) 100 11/30/19 12:00 77 11/30/19 12:00 Bi-pap Bi-pap Bi-pap 11/30/19 11:31 113/52 11/30/19 11:31 113/52 11/30/19 11:24 72 16 100 45 11/30/19 11:00 77 15 118/52 (74) 100 Height (Feet): 5 Height (Inches): 8.00 Weight (Pounds): 240 Objective GENERAL: not in distress HEENT: Eyes, pupils are equal and responsive to light and accommodation. Extraocular movements are intact. NECK: Supple CHEST: no wheezes or rales. CARDIOVASCULAR: Regular rate. S1 and S2 normal without murmurs, rubs, or gallops. ABDOMEN: Soft, nontender, and nondistended. Positive bowel sounds. No evidence of hepatosplenomegaly. Currently, no rebound or guarding noted. EXTREMITIES: Negative for clubbing, cyanosis, or edema. Microbiology Date/Time Source Procedure Growth Status 11/29/19 13:20 Blood Blood Culture - Preliminary NO GROWTH AFTER 24 HOURS Resulted 11/29/19 13:20 Blood Blood Culture - Preliminary NO GROWTH AFTER 24 HOURS Resulted 11/29/19 03:30 Sputum Induced Gram Stain - Final Resulted 11/29/19 03:30 Sputum Culture - Preliminary Escherichia Coli Resulted Laboratory Tests Test 12/01/19 05:11 12/01/19 09:00 White Blood Count 18.3 K/UL (4.8-10.8) H Red Blood Count 2.80 M/UL (4.70-6.10) L Hemoglobin 8.1 G/DL (14.2-18.0) L Hematocrit 23.7 % (42.0-52.0) L Mean Corpuscular Volume 85 FL (80-99) Mean Corpuscular Hemoglobin 29.1 PG (27.0-31.0) Mean Corpuscular Hemoglobin Concent 34.3 G/DL (32.0-36.0) Red Cell Distribution Width 14.0 % (11.6-14.8) Platelet Count 210 K/UL (150-450) Mean Platelet Volume 5.1 FL (6.5-10.1) L Neutrophils (%) (Auto) % (45.0-75.0) Lymphocytes (%) (Auto) % (20.0-45.0) Monocytes (%) (Auto) % (1.0-10.0) Eosinophils (%) (Auto) % (0.0-3.0) Basophils (%) (Auto) % (0.0-2.0) Differential Total Cells Counted 100 Neutrophils % (Manual) 82 % (45-75) H Lymphocytes % (Manual) 4 % (20-45) L Monocytes % (Manual) 10 % (1-10) Eosinophils % (Manual) 4 % (0-3) H Basophils % (Manual) 0 % (0-2) Band Neutrophils 0 % (0-8) Platelet Estimate Adequate Platelet Morphology Normal Hypochromasia 2+ Anisocytosis 1+ Sodium Level 145 MMOL/L (136-145) Potassium Level 3.5 MMOL/L (3.5-5.1) Chloride Level 104 MMOL/L (98-107) Carbon Dioxide Level 27 MMOL/L (21-32) Anion Gap 14 mmol/L (5-15) Blood Urea Nitrogen 52 mg/dL (7-18) H Creatinine 3.9 MG/DL (0.55-1.30) H Estimat Glomerular Filtration Rate 19.4 mL/min (>60) Glucose Level 130 MG/DL (74-106) H Calcium Level 9.2 MG/DL (8.5-10.1) Phosphorus Level 3.5 MG/DL (2.5-4.9) Magnesium Level 2.0 MG/DL (1.8-2.4) Total Bilirubin 0.8 MG/DL (0.2-1.0) Aspartate Amino Transf (AST/SGOT) 40 U/L (15-37) H Alanine Aminotransferase (ALT/SGPT) 38 U/L (12-78) Alkaline Phosphatase 100 U/L (46-116) Total Protein 6.3 G/DL (6.4-8.2) L Albumin 1.6 G/DL (3.4-5.0) L Globulin 4.7 g/dL Albumin/Globulin Ratio 0.3 (1.0-2.7) L Arterial Blood pH 7.426 (7.350-7.450) Arterial Blood Partial Pressure CO2 41.3 mmHg (35.0-45.0) Arterial Blood Partial Pressure O2 88.6 mmHg (75.0-100.0) Arterial Blood HCO3 26.6 mmol/L (22.0-26.0) H Arterial Blood Oxygen Saturation 95.9 % (95-100) Arterial Blood Base Excess 2.0 (-2-2) Garry Test Positive Current Medications Medications (Trade) Dose Ordered Sig/Valeriano Route PRN Reason Start Time Stop Time Status Last Admin Dose Admin Acetaminophen (Tylenol) 650 mg Q4H PRN NG Mild Pain/Temp > 100.5 11/29/19 08:00 12/29/19 07:59 11/30/19 17:37 Albuterol/ Ipratropium (Albuterol/ Ipratropium) 3 ml Q4H PRN HHN Shortness of Breath 11/29/19 15:15 12/04/19 15:14 11/30/19 19:19 Carvedilol (Coreg) 12.5 mg EVERY 12 HOURS NG 11/30/19 21:00 12/28/19 20:59 12/01/19 09:48 Chlorhexidine Gluconate (Katia-Hex 2%) 1 applic DAILY@2000 TOPIC 11/25/19 20:00 12/25/19 19:59 11/30/19 20:37 Dextrose (Dextrose 50%) 25 ml Q30M PRN IV Hypoglycemia 11/24/19 13:30 12/24/19 13:29 Dextrose (Dextrose 50%) 50 ml Q30M PRN IV Hypoglycemia 11/24/19 13:30 12/24/19 13:29 Fentanyl Citrate 2500 mcg/Sodium Chloride 250 ml @ 0 mls/hr Q24H IV 11/24/19 20:00 12/01/19 19:59 11/24/19 19:54 Folic Acid (Folate) 5 mg DAILY GT 11/27/19 09:00 12/27/19 08:59 12/01/19 09:48 Heparin Sodium (Porcine) (Heparin 5000 units/ml) 5,000 units EVERY 12 HOURS SUBQ 11/24/19 21:00 12/24/19 20:59 12/01/19 09:49 Hydralazine HCl (Apresoline) 25 mg EVERY 6 HOURS GT 11/30/19 12:00 12/28/19 09:14 12/01/19 06:13 Insulin Aspart (NovoLOG) BEFORE MEALS AND HS SUBQ 11/24/19 16:30 12/24/19 16:29 11/29/19 05:57 Isosorbide Dinitrate (Isordil) 10 mg Q6HR ORAL 11/28/19 12:00 12/28/19 11:59 12/01/19 06:12 Lansoprazole (Prevacid) 30 mg BID NG 11/30/19 18:00 12/30/19 17:59 12/01/19 09:48 Lorazepam (Ativan 2mg/ml 1ml) 2 mg Q4H PRN IV For Anxiety 11/24/19 15:15 12/01/19 15:14 11/27/19 18:03 Meropenem 500 mg/ Sodium Chloride 55 ml @ 110 mls/hr Q24H IVPB 11/30/19 12:00 12/05/19 11:59 11/30/19 13:11 Morphine Sulfate (Morphine Sulfate) 2 mg Q4H PRN IVP Severe Pain (Pain Scale 7-10) 11/29/19 13:15 12/06/19 13:14 11/29/19 13:28 Nitroglycerin (Ntg) 0.4 mg Q5M PRN SL Prn Chest Pain 11/24/19 09:30 12/24/19 09:29 11/24/19 09:23 Norepinephrine Bitartrate 8 mg/ Dextrose 500 ml @ 0 mls/hr Q24H IV 11/25/19 04:30 12/25/19 04:29 11/25/19 04:54 Ondansetron HCl (Zofran) 4 mg Q6H PRN IVP Nausea & Vomiting 11/24/19 13:30 12/24/19 13:29 Oseltamivir Phosphate (Tamiflu) 30 mg DAILY ORAL 11/25/19 13:00 12/01/19 12:59 12/01/19 09:48 Polyethylene Glycol (Miralax) 17 gm DAILYPRN PRN ORAL Constipation 11/24/19 13:30 12/24/19 13:29 Promethazine HCl/ Codeine (Phenergan with Codeine) 5 ml Q4H PRN ORAL For Cough 11/24/19 13:30 12/24/19 13:29 Vancomycin HCl (Vanco rx to dose) 1 ea DAILY PRN MISC . 11/24/19 13:30 12/24/19 13:29 Yojana Bennett M.D. Dec 01, 2019 10:09
--- NOTE | 2019-12-01 10:12 | Pulmonolgy Critical Care Note ---
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 Discussed with: nurses, 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, 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 - Objective Last 24 Hour Vital Signs Date Time Temp Pulse Resp B/P (MAP) Pulse Ox O2 Delivery O2 Flow Rate FiO2 12/01/19 10:00 86 18 129/51 (77) 100 12/01/19 09:48 89 140/60 12/01/19 09:16 91 14 100 60 12/01/19 09:00 91 16 140/58 (85) 100 12/01/19 08:00 100 12/01/19 08:00 97.6 90 14 147/62 (90) 100 12/01/19 07:00 96 12 147/62 (90) 100 12/01/19 06:59 95 12 100 60 12/01/19 06:59 100 Bi-Pap 60 12/01/19 06:13 154/53 12/01/19 06:12 154/53 12/01/19 06:00 96 15 154/53 (86) 100 12/01/19 05:17 94 18 100 100 12/01/19 05:00 98 16 145/72 (96) 100 12/01/19 04:30 151/64 12/01/19 04:00 100 12/01/19 04:00 98.8 97 12 156/69 (98) 100 12/01/19 04:00 Bi-pap Bi-pap Bi-pap 12/01/19 04:00 96 12/01/19 03:00 95 16 151/64 (93) 100 12/01/19 02:37 91 17 100 100 12/01/19 02:00 95 14 137/57 (83) 100 12/01/19 01:00 98 20 141/51 (81) 100 12/01/19 00:57 95 18 100 100 12/01/19 00:00 Bi-pap Bi-pap Bi-pap 12/01/19 00:00 96 12/01/19 00:00 98.4 97 25 146/69 (94) 100 11/30/19 23:55 148/69 11/30/19 23:55 148/69 11/30/19 23:00 97 13 157/61 (93) 100 11/30/19 22:59 91 18 100 100 11/30/19 22:00 94 13 152/73 (99) 100 11/30/19 21:00 92 10 141/58 (85) 100 11/30/19 21:00 100 11/30/19 20:40 94 16 100 100 11/30/19 20:37 96 155/71 11/30/19 20:00 97 11/30/19 20:00 98.2 97 15 156/59 (91) 100 11/30/19 20:00 Bi-pap Bi-pap Bi-pap 11/30/19 19:19 92 16 100 Bi-Pap 100 89 15 100 11/30/19 19:17 100 Bi-Pap 100 11/30/19 19:17 92 15 100 100 11/30/19 19:00 89 17 128/106 (113) 100 11/30/19 18:00 91 15 142/62 (88) 100 11/30/19 17:38 165/65 11/30/19 17:37 165/65 11/30/19 17:22 90 16 100 100 11/30/19 17:00 88 19 159/65 (96) 100 11/30/19 16:00 88 11/30/19 16:00 98.4 89 16 139/65 (89) 100 11/30/19 16:00 Bi-pap Bi-pap Bi-pap 11/30/19 16:00 100 11/30/19 15:00 88 13 149/68 (95) 100 11/30/19 14:00 83 13 135/61 (85) 100 11/30/19 13:29 79 13 100 35 11/30/19 13:00 75 14 121/60 (80) 100 11/30/19 12:00 97.9 72 20 113/53 (73) 100 11/30/19 12:00 77 2/19/20 12:00 Bi-pap Bi-pap Bi-pap 11/30/19 11:31 113/52 11/30/19 11:31 113/52 11/30/19 11:24 72 16 100 45 11/30/19 11:00 77 15 118/52 (74) 100 Status: awake Condition: critical HEENT: atraumatic Neck: full ROM Lungs: rales, rhonchi Heart: HR/BP stable Abdomen: soft, non-tender Extremities: no C/C/E Micro: Microbiology Date/Time Source Procedure Growth Status 11/29/19 13:20 Blood Blood Culture - Preliminary NO GROWTH AFTER 24 HOURS Resulted 11/29/19 13:20 Blood Blood Culture - Preliminary NO GROWTH AFTER 24 HOURS Resulted 11/29/19 03:30 Sputum Induced Gram Stain - Final Resulted 11/29/19 03:30 Sputum Culture - Preliminary Escherichia Coli Resulted Accucheck: 122 Critical Care - Subjective ROS Limited/Unobtainable: No Interval Events: still on bipap, 60% fio2 Condition: critical EKG Rhythm: Sinus Rhythm FI02: 60 Vent Support Breath Rate: 20 Vent Support Mode: BiLevel Vent Tidal Volume: 600 Sputum Amount: None PEEP: 5.0 PIP: 14 Tube Feeding Amount: 0 I&O: Intake and Output 11/30/19 12/01/19 19:00 07:00 Intake Total 2330.000 ml Output Total 180 ml 265 ml Balance 2150.000 ml -265 ml IV Total 330.000 ml Hemodialysis 2000 ml Output Urine Total 180 ml 265 ml CXR: slightly less pulmonary edema ET-Tube: 7.5 ET Position: 24 Labs: Laboratory Tests Test 12/01/19 05:11 12/01/19 09:00 White Blood Count 18.3 K/UL (4.8-10.8) H Red Blood Count 2.80 M/UL (4.70-6.10) L Hemoglobin 8.1 G/DL (14.2-18.0) L Hematocrit 23.7 % (42.0-52.0) L Mean Corpuscular Volume 85 FL (80-99) Mean Corpuscular Hemoglobin 29.1 PG (27.0-31.0) Mean Corpuscular Hemoglobin Concent 34.3 G/DL (32.0-36.0) Red Cell Distribution Width 14.0 % (11.6-14.8) Platelet Count 210 K/UL (150-450) Mean Platelet Volume 5.1 FL (6.5-10.1) L Neutrophils (%) (Auto) % (45.0-75.0) Lymphocytes (%) (Auto) % (20.0-45.0) Monocytes (%) (Auto) % (1.0-10.0) Eosinophils (%) (Auto) % (0.0-3.0) Basophils (%) (Auto) % (0.0-2.0) Differential Total Cells Counted 100 Neutrophils % (Manual) 82 % (45-75) H Lymphocytes % (Manual) 4 % (20-45) L Monocytes % (Manual) 10 % (1-10) Eosinophils % (Manual) 4 % (0-3) H Basophils % (Manual) 0 % (0-2) Band Neutrophils 0 % (0-8) Platelet Estimate Adequate Platelet Morphology Normal Hypochromasia 2+ Anisocytosis 1+ Sodium Level 145 MMOL/L (136-145) Potassium Level 3.5 MMOL/L (3.5-5.1) Chloride Level 104 MMOL/L (98-107) Carbon Dioxide Level 27 MMOL/L (21-32) Anion Gap 14 mmol/L (5-15) Blood Urea Nitrogen 52 mg/dL (7-18) H Creatinine 3.9 MG/DL (0.55-1.30) H Estimat Glomerular Filtration Rate 19.4 mL/min (>60) Glucose Level 130 MG/DL (74-106) H Calcium Level 9.2 MG/DL (8.5-10.1) Phosphorus Level 3.5 MG/DL (2.5-4.9) Magnesium Level 2.0 MG/DL (1.8-2.4) Total Bilirubin 0.8 MG/DL (0.2-1.0) Aspartate Amino Transf (AST/SGOT) 40 U/L (15-37) H Alanine Aminotransferase (ALT/SGPT) 38 U/L (12-78) Alkaline Phosphatase 100 U/L (46-116) Total Protein 6.3 G/DL (6.4-8.2) L Albumin 1.6 G/DL (3.4-5.0) L Globulin 4.7 g/dL Albumin/Globulin Ratio 0.3 (1.0-2.7) L Arterial Blood pH 7.426 (7.350-7.450) Arterial Blood Partial Pressure CO2 41.3 mmHg (35.0-45.0) Arterial Blood Partial Pressure O2 88.6 mmHg (75.0-100.0) Arterial Blood HCO3 26.6 mmol/L (22.0-26.0) H Arterial Blood Oxygen Saturation 95.9 % (95-100) Arterial Blood Base Excess 2.0 (-2-2) Garry Test Positive Brandy Milton MD Dec 01, 2019 10:12
--- NOTE | 2019-12-01 10:30 | NUR ---
NURSE NOTES: Dr. Milton updated on patient ABG and breathing status. Dr. Milton spoke with Dr. Sidhu to have hemodialysis this afternoon after reviewing the chest X-ray. ordered changed by dr Milton to have dialysis,
--- NOTE | 2019-12-01 10:48 | Diagnostic Imaging Report ---
Indication: Dyspnea Technique: One view of the chest Comparison: 11/30/2019 Findings: Allowing for technical differences, probably unchanged bilateral diffuse interstitial and airspace disease. Right jugular central venous catheter remains. Pleural spaces remain clear Impression: Unchanged, over one day, findings as above.
--- NOTE | 2019-12-01 11:15 | NUR ---
NURSE NOTES: Hemodialysis nurse called and informed of order placed by dr. Milton, confirmed to arrive this afternoon for hemodialysis, patient has a right femoral Chris catheter.
--- NOTE | 2019-12-01 11:18 | NUR ---
RD ASSESSMENT & RECOMMENDATIONS SEE CARE ACTIVITY FOR COMPLETE ASSESSMENT DAILY ESTIMATED NEEDS: Needs based on Pulmonary, HD needs, wound 75kg adj 25-30 kcals/kg 4790-4965 total kcals 1.25-1.8 g protein/kg 94-135 g total protein 20-22 mL/kg 6669-5611 total fluid mLs NUTRITION DIAGNOSIS: * Swallowing difficulty r/t resp status as evidenced by septic, now extubated, on continuous BIPAP at this time, NGT feeds held. CURRENT TF:TF HELD FOR BIPAP PO DIET RECOMMENDATIONS: WHEN SAFE FOR ORAL DIET: renal, ccho med/ texture per [employer] ENTERAL NUTRITION RECOMMENDATIONS: Nepro @ 45ml/hr x24 hrs + Prosource QD to provide 1080ml, 1944kcal, 87+11g prot, 785ml free water - Once weaned from BIPAP, resume TF on Nepro - Increase goal rate to 45ml/hr x 24 hrs - Start Nepro @ 25ml/hr for 6 hrs, advance as tolerated 10ml/hr q 4-6 hrs to goal. - Add Prosource QD to better meet est pro needs - Flush per . HOB over 30 degrees ADDITIONAL RECOMMENDATIONS: 1) MONITOR ABILITY TO FEED: TF held for BIPAP usage -> monitor [employer] rec, ability for oral diet once off of BIPAP 2) Per SNF: 69inches tall, last wt of 210 lbs (11/14) -> rec weekly calibrated bed scale wts 3) Monitor for continuity of HD: first HD on 11/27 .
[2019-12-01] MEDS: Meropenem 500 MG in NS 55 ML IVPB SCH (11:48)
--- NOTE | 2019-12-01 12:45 | NUR ---
NURSE NOTES: Dr. Bennett updated of patient WBC count, no verbal orders given at this time.
--- NOTE | 2019-12-01 13:26 | Surgery Progress Note ---
Surgery Progress Note Subjective Procedure Performed Right femoral temporary hemodialysis catheter insertion Symptoms: improved Objective Last 24 Hour Vital Signs Date Time Temp Pulse Resp B/P (MAP) Pulse Ox O2 Delivery O2 Flow Rate FiO2 12/01/19 13:00 84 17 132/46 (74) 100 12/01/19 12:00 87 12/01/19 12:00 97.8 82 13 141/62 (88) 100 12/01/19 12:00 60 12/01/19 12:00 Bi-pap Bi-pap Bi-pap 12/01/19 11:00 80 15 135/61 (85) 100 12/01/19 10:57 89 19 100 60 12/01/19 10:00 86 18 129/51 (77) 100 12/01/19 09:48 89 140/60 12/01/19 09:16 91 14 100 60 12/01/19 09:00 91 16 140/58 (85) 100 12/01/19 08:00 100 12/01/19 08:00 80 12/01/19 08:00 97.6 90 14 147/62 (90) 100 12/01/19 08:00 Bi-pap Bi-pap 12/01/19 07:00 96 12 147/62 (90) 100 12/01/19 06:59 95 12 100 60 12/01/19 06:59 100 Bi-Pap 60 12/01/19 06:13 154/53 12/01/19 06:12 154/53 12/01/19 06:00 96 15 154/53 (86) 100 12/01/19 05:17 94 18 100 100 12/01/19 05:00 98 16 145/72 (96) 100 12/01/19 04:30 151/64 12/01/19 04:00 100 12/01/19 04:00 98.8 97 12 156/69 (98) 100 12/01/19 04:00 Bi-pap Bi-pap Bi-pap 12/01/19 04:00 96 12/01/19 03:00 95 16 151/64 (93) 100 12/01/19 02:37 91 17 100 100 12/01/19 02:00 95 14 137/57 (83) 100 12/01/19 01:00 98 20 141/51 (81) 100 12/01/19 00:57 95 18 100 100 12/01/19 00:00 Bi-pap Bi-pap Bi-pap 12/01/19 00:00 96 12/01/19 00:00 98.4 97 25 146/69 (94) 100 11/30/19 23:55 148/69 11/30/19 23:55 148/69 11/30/19 23:00 97 13 157/61 (93) 100 11/30/19 22:59 91 18 100 100 11/30/19 22:00 94 13 152/73 (99) 100 11/30/19 21:00 92 10 141/58 (85) 100 11/30/19 21:00 100 11/30/19 20:40 94 16 100 100 11/30/19 20:37 96 155/71 11/30/19 20:00 97 11/30/19 20:00 98.2 97 15 156/59 (91) 100 11/30/19 20:00 Bi-pap Bi-pap Bi-pap 11/30/19 19:19 92 16 100 Bi-Pap 100 89 15 100 11/30/19 19:17 100 Bi-Pap 100 11/30/19 19:17 92 15 100 100 11/30/19 19:00 89 17 128/106 (113) 100 11/30/19 18:00 91 15 142/62 (88) 100 11/30/19 17:38 165/65 11/30/19 17:37 165/65 11/30/19 17:22 90 16 100 100 11/30/19 17:00 88 19 159/65 (96) 100 11/30/19 16:00 88 11/30/19 16:00 98.4 89 16 139/65 (89) 100 11/30/19 16:00 Bi-pap Bi-pap Bi-pap 11/30/19 16:00 100 11/30/19 15:00 88 13 149/68 (95) 100 11/30/19 14:00 83 13 135/61 (85) 100 11/30/19 13:29 79 13 100 35 I&O Intake and Output 11/30/19 12/01/19 19:00 07:00 Intake Total 2330.000 ml Output Total 180 ml 265 ml Balance 2150.000 ml -265 ml IV Total 330.000 ml Hemodialysis 2000 ml Output Urine Total 180 ml 265 ml Dressing: dry Wound: clean Cardiovascular: RSR Respiratory: clear Abdomen: soft, non-tender, present bowel sounds Extremities: no cyanosis Laboratory Tests Test 12/01/19 05:11 12/01/19 09:00 White Blood Count 18.3 K/UL (4.8-10.8) H Red Blood Count 2.80 M/UL (4.70-6.10) L Hemoglobin 8.1 G/DL (14.2-18.0) L Hematocrit 23.7 % (42.0-52.0) L Mean Corpuscular Volume 85 FL (80-99) Mean Corpuscular Hemoglobin 29.1 PG (27.0-31.0) Mean Corpuscular Hemoglobin Concent 34.3 G/DL (32.0-36.0) Red Cell Distribution Width 14.0 % (11.6-14.8) Platelet Count 210 K/UL (150-450) Mean Platelet Volume 5.1 FL (6.5-10.1) L Neutrophils (%) (Auto) % (45.0-75.0) Lymphocytes (%) (Auto) % (20.0-45.0) Monocytes (%) (Auto) % (1.0-10.0) Eosinophils (%) (Auto) % (0.0-3.0) Basophils (%) (Auto) % (0.0-2.0) Differential Total Cells Counted 100 Neutrophils % (Manual) 82 % (45-75) H Lymphocytes % (Manual) 4 % (20-45) L Monocytes % (Manual) 10 % (1-10) Eosinophils % (Manual) 4 % (0-3) H Basophils % (Manual) 0 % (0-2) Band Neutrophils 0 % (0-8) Platelet Estimate Adequate Platelet Morphology Normal Hypochromasia 2+ Anisocytosis 1+ Sodium Level 145 MMOL/L (136-145) Potassium Level 3.5 MMOL/L (3.5-5.1) Chloride Level 104 MMOL/L (98-107) Carbon Dioxide Level 27 MMOL/L (21-32) Anion Gap 14 mmol/L (5-15) Blood Urea Nitrogen 52 mg/dL (7-18) H Creatinine 3.9 MG/DL (0.55-1.30) H Estimat Glomerular Filtration Rate 19.4 mL/min (>60) Glucose Level 130 MG/DL (74-106) H Calcium Level 9.2 MG/DL (8.5-10.1) Phosphorus Level 3.5 MG/DL (2.5-4.9) Magnesium Level 2.0 MG/DL (1.8-2.4) Total Bilirubin 0.8 MG/DL (0.2-1.0) Aspartate Amino Transf (AST/SGOT) 40 U/L (15-37) H Alanine Aminotransferase (ALT/SGPT) 38 U/L (12-78) Alkaline Phosphatase 100 U/L (46-116) Total Protein 6.3 G/DL (6.4-8.2) L Albumin 1.6 G/DL (3.4-5.0) L Globulin 4.7 g/dL Albumin/Globulin Ratio 0.3 (1.0-2.7) L Arterial Blood pH 7.426 (7.350-7.450) Arterial Blood Partial Pressure CO2 41.3 mmHg (35.0-45.0) Arterial Blood Partial Pressure O2 88.6 mmHg (75.0-100.0) Arterial Blood HCO3 26.6 mmol/L (22.0-26.0) H Arterial Blood Oxygen Saturation 95.9 % (95-100) Arterial Blood Base Excess 2.0 (-2-2) Garry Test Positive Plan Problems: (1) Septic shock Assessment & Plan: Patient in septic shock prior central line and pressors intubated on vent support in the intensive care unit tachycardic. Renal insufficiency requiring hemodialysis. Temporary hemodialysis catheter indicated and recommended Please see procedure note Dialysis as per nephrology IV antibiotics post per infectious disease Dressing changes as per protocol We will monitor site for hematoma or infection No further acute surgical intervention recommended at this time will follow with recommendations thank you for let me participate patient's care extubated improved (2) Acute respiratory failure Assessment & Plan: DAILY ESTIMATED NEEDS: Needs based on Critical care, sepsis 75kg adj 22-28 kcals/kg [id number] total kcals 1.2-2 g protein/kg 90-150 g total protein 25-30 mL/kg [id number] total fluid mLs NUTRITION DIAGNOSIS: Swallowing difficulty r/t resp status as evidenced by septic shock now s/p intubation, w/ NGT, NPO at this time. ENTERAL NUTRITION RECOMMENDATIONS: Nepro @40ml/hr x24 hrs + Prosource BID to provide 960ml, 78g + 22 g pro, 698ml free H2O - As medically appropriate, rec non oral feeds via NGT - Start Nepro @20ml/hr for 6 hrs. Advance as tolerated 10ml/hr q4-6 hrs to goal. - Add Prosource BID to better meet est pro needs - Flush per MD. HOB over 30 degrees -------- ADDITIONAL RECOMMENDATIONS: 1) Tf recs as above, feed as medically able 2) Ad PROSOURCE VIA NGT BID to better meet est pro needs 3) Per SNF: 69inches tall, last wt of 210 lbs (2/3) -> rec weekly calibrated bed scale wts 4) DATABASE COORDINATOR eval upon extubation (3) Sepsis (4) History of left below knee amputation Assessment & Plan: Wound stable dressings intact elevate with pillow Ranjit Ralph Dec 01, 2019 13:26
--- NOTE | 2019-12-01 13:27 | Surgery Progress Note ---
Surgery Progress Note Subjective Procedure Performed Right femoral temporary hemodialysis catheter insertion Additional Comments Patient seen and examined bedside. No acute events. Of note this is a late entry for patient's examination performed on November 30, 2019. Unfortunate was called to the emergency department following to the operating room and was unable to complete note. Patient sitting much better now that he is extubated and comfortable. Continue to require dialysis. Objective Last 24 Hour Vital Signs Date Time Temp Pulse Resp B/P (MAP) Pulse Ox O2 Delivery O2 Flow Rate FiO2 12/01/19 13:00 84 17 132/46 (74) 100 12/01/19 12:00 87 12/01/19 12:00 97.8 82 13 141/62 (88) 100 12/01/19 12:00 60 12/01/19 12:00 Bi-pap Bi-pap Bi-pap 12/01/19 11:00 80 15 135/61 (85) 100 12/01/19 10:57 89 19 100 60 12/01/19 10:00 86 18 129/51 (77) 100 12/01/19 09:48 89 140/60 12/01/19 09:16 91 14 100 60 12/01/19 09:00 91 16 140/58 (85) 100 12/01/19 08:00 100 12/01/19 08:00 80 12/01/19 08:00 97.6 90 14 147/62 (90) 100 12/01/19 08:00 Bi-pap Bi-pap 12/01/19 07:00 96 12 147/62 (90) 100 12/01/19 06:59 95 12 100 60 12/01/19 06:59 100 Bi-Pap 60 12/01/19 06:13 154/53 12/01/19 06:12 154/53 12/01/19 06:00 96 15 154/53 (86) 100 12/01/19 05:17 94 18 100 100 12/01/19 05:00 98 16 145/72 (96) 100 12/01/19 04:30 151/64 12/01/19 04:00 100 12/01/19 04:00 98.8 97 12 156/69 (98) 100 12/01/19 04:00 Bi-pap Bi-pap Bi-pap 12/01/19 04:00 96 12/01/19 03:00 95 16 151/64 (93) 100 12/01/19 02:37 91 17 100 100 12/01/19 02:00 95 14 137/57 (83) 100 12/01/19 01:00 98 20 141/51 (81) 100 12/01/19 00:57 95 18 100 100 12/01/19 00:00 Bi-pap Bi-pap Bi-pap 12/01/19 00:00 96 12/01/19 00:00 98.4 97 25 146/69 (94) 100 11/30/19 23:55 148/69 11/30/19 23:55 148/69 11/30/19 23:00 97 13 157/61 (93) 100 11/30/19 22:59 91 18 100 100 11/30/19 22:00 94 13 152/73 (99) 100 11/30/19 21:00 92 10 141/58 (85) 100 11/30/19 21:00 100 11/30/19 20:40 94 16 100 100 11/30/19 20:37 96 155/71 11/30/19 20:00 97 11/30/19 20:00 98.2 97 15 156/59 (91) 100 11/30/19 20:00 Bi-pap Bi-pap Bi-pap 11/30/19 19:19 92 16 100 Bi-Pap 100 89 15 100 11/30/19 19:17 100 Bi-Pap 100 11/30/19 19:17 92 15 100 100 11/30/19 19:00 89 17 128/106 (113) 100 11/30/19 18:00 91 15 142/62 (88) 100 11/30/19 17:38 165/65 11/30/19 17:37 165/65 11/30/19 17:22 90 16 100 100 11/30/19 17:00 88 19 159/65 (96) 100 11/30/19 16:00 88 11/30/19 16:00 98.4 89 16 139/65 (89) 100 11/30/19 16:00 Bi-pap Bi-pap Bi-pap 11/30/19 16:00 100 11/30/19 15:00 88 13 149/68 (95) 100 11/30/19 14:00 83 13 135/61 (85) 100 2/19/20 13:29 79 13 100 35 I&O Intake and Output 11/30/19 12/01/19 19:00 07:00 Intake Total 2330.000 ml Output Total 180 ml 265 ml Balance 2150.000 ml -265 ml IV Total 330.000 ml Hemodialysis 2000 ml Output Urine Total 180 ml 265 ml Dressing: other Wound: other Cardiovascular: RSR Respiratory: decreased breath sounds Abdomen: soft, present bowel sounds Extremities: no cyanosis Laboratory Tests Test 12/01/19 05:11 12/01/19 09:00 White Blood Count 18.3 K/UL (4.8-10.8) H Red Blood Count 2.80 M/UL (4.70-6.10) L Hemoglobin 8.1 G/DL (14.2-18.0) L Hematocrit 23.7 % (42.0-52.0) L Mean Corpuscular Volume 85 FL (80-99) Mean Corpuscular Hemoglobin 29.1 PG (27.0-31.0) Mean Corpuscular Hemoglobin Concent 34.3 G/DL (32.0-36.0) Red Cell Distribution Width 14.0 % (11.6-14.8) Platelet Count 210 K/UL (150-450) Mean Platelet Volume 5.1 FL (6.5-10.1) L Neutrophils (%) (Auto) % (45.0-75.0) Lymphocytes (%) (Auto) % (20.0-45.0) Monocytes (%) (Auto) % (1.0-10.0) Eosinophils (%) (Auto) % (0.0-3.0) Basophils (%) (Auto) % (0.0-2.0) Differential Total Cells Counted 100 Neutrophils % (Manual) 82 % (45-75) H Lymphocytes % (Manual) 4 % (20-45) L Monocytes % (Manual) 10 % (1-10) Eosinophils % (Manual) 4 % (0-3) H Basophils % (Manual) 0 % (0-2) Band Neutrophils 0 % (0-8) Platelet Estimate Adequate Platelet Morphology Normal Hypochromasia 2+ Anisocytosis 1+ Sodium Level 145 MMOL/L (136-145) Potassium Level 3.5 MMOL/L (3.5-5.1) Chloride Level 104 MMOL/L (98-107) Carbon Dioxide Level 27 MMOL/L (21-32) Anion Gap 14 mmol/L (5-15) Blood Urea Nitrogen 52 mg/dL (7-18) H Creatinine 3.9 MG/DL (0.55-1.30) H Estimat Glomerular Filtration Rate 19.4 mL/min (>60) Glucose Level 130 MG/DL (74-106) H Calcium Level 9.2 MG/DL (8.5-10.1) Phosphorus Level 3.5 MG/DL (2.5-4.9) Magnesium Level 2.0 MG/DL (1.8-2.4) Total Bilirubin 0.8 MG/DL (0.2-1.0) Aspartate Amino Transf (AST/SGOT) 40 U/L (15-37) H Alanine Aminotransferase (ALT/SGPT) 38 U/L (12-78) Alkaline Phosphatase 100 U/L (46-116) Total Protein 6.3 G/DL (6.4-8.2) L Albumin 1.6 G/DL (3.4-5.0) L Globulin 4.7 g/dL Albumin/Globulin Ratio 0.3 (1.0-2.7) L Arterial Blood pH 7.426 (7.350-7.450) Arterial Blood Partial Pressure CO2 41.3 mmHg (35.0-45.0) Arterial Blood Partial Pressure O2 88.6 mmHg (75.0-100.0) Arterial Blood HCO3 26.6 mmol/L (22.0-26.0) H Arterial Blood Oxygen Saturation 95.9 % (95-100) Arterial Blood Base Excess 2.0 (-2-2) Garry Test Positive Plan Problems: (1) Septic shock Assessment & Plan: Patient in septic shock prior central line and pressors intubated on vent support in the intensive care unit tachycardic. Renal insufficiency requiring hemodialysis. Temporary hemodialysis catheter indicated and recommended Please see procedure note Dialysis as per nephrology IV antibiotics post per infectious disease Dressing changes as per protocol We will monitor site for hematoma or infection No further acute surgical intervention recommended at this time will follow with recommendations thank you for let me participate patient's care extubated improved (2) Acute respiratory failure Assessment & Plan: DAILY ESTIMATED NEEDS: Needs based on Critical care, sepsis 75kg adj 22-28 kcals/kg 6532-7208 total kcals 1.2-2 g protein/kg 90-150 g total protein 25-30 mL/kg 1872-4223 total fluid mLs NUTRITION DIAGNOSIS: Swallowing difficulty r/t resp status as evidenced by septic shock now s/p intubation, w/ NGT, NPO at this time. ENTERAL NUTRITION RECOMMENDATIONS: Nepro @40ml/hr x24 hrs + Prosource BID to provide 960ml, 78g + 22 g pro, 698ml free H2O - As medically appropriate, rec non oral feeds via NGT - Start Nepro @20ml/hr for 6 hrs. Advance as tolerated 10ml/hr q4-6 hrs to goal. - Add Prosource BID to better meet est pro needs - Flush per MD. HOB over 30 degrees -------- ADDITIONAL RECOMMENDATIONS: 1) Tf recs as above, feed as medically able 2) Ad PROSOURCE VIA NGT BID to better meet est pro needs 3) Per SNF: 69inches tall, last wt of 210 lbs (2/3) -> rec weekly calibrated bed scale wts 4) CHANNEL PROGRAM MANAGER eval upon extubation (3) Sepsis (4) History of left below knee amputation Assessment & Plan: Wound stable dressings intact elevate with pillow Additional Comments Will plan for permacath placement as patient continues to require dialysis and will likely for a fair amount of time. Ranjit Ralph Dec 01, 2019 13:27
--- NOTE | 2019-12-01 14:30 | NUR ---
NURSE NOTES: Patient repositioned and awaiting for dialysis nurse to arrive to begin to have hemodialysis, he remains talkative and responsive with one worded answers. he remains on BIPAP with saturating of 98-100% at Fio2 at 60%. Ng-tube remains patent with positioned checked over the left upper abdomen.
--- NOTE | 2019-12-01 15:04 | NUR ---
*-* INSURANCE *-* ALL CLINICALS AND REVIEWS HAVE BEEN FAXED TO: [facility] [phone] AUTH# [id number] NCM: JARRED GONSALVES FAX ALL CLINICALS TO: [phone]
--- NOTE | 2019-12-01 16:46 | NUR ---
DISCHARGE SWALLOW/SPEECH THERAPY SUMMARY: PATIENT SEEN FOR DYSPHAGIA, SEE SWALLOW EVAL REPORT. PATIENT NOW IN ICU AND ON BIPAP. REQUIRED TUBE FEEDINGS. PLAN: D/C FROM [facility] FOR NOW PLEASE RECONSULT WHEN MAY BE READY FOR PO INTAKE. CONTINUE WITH ORAL CARE AND ASPIRATION PRECAUTIONS WHEN TUBE FEEDINGS ARE RUNNING.
--- NOTE | 2019-12-01 17:15 | NUR ---
NURSE NOTES: Hemodialysis nurse arrived to start patient on hemodialysis, patient is awake and talkative, he is able to communicate with verbal speech, he remains on BIPAP with setting of 15/7 at 100%, Right femoral Chris is patient and flows through the dialysis machine,
--- NOTE | 2019-12-01 18:25 | NUR ---
CASE MANAGEMENT: REVIEW 12/01/2019 SI:A/C RESP FAILURE W/ HYPOXIA T 98.8 HR 85 RR 21 B/P 154/70 SATS 100% ON BIPAP FIO2 60 LABS: WBC 18.3 BUN 52 CR 3.9 GLU 130 AST 40 ABGs HCO3 26.6 IS:HYDRALAZINE GT Q6H COREG NG Q12H PREVACID NG BID INSULIN SUBQ AC/HS FENTANYL PER PARAMETERS LEVOPHED PER PARAMETERS MEROPENEM IV Q24H ICU PLAN OF CARE: NON TUNNEL CATH PLCT HD
--- NOTE | 2019-12-01 19:22 | Internal Med Progress Note ---
Subjective Date of Service: Dec 01, 2019 Physician Name Sidney Galaviz Attending Physician Cezar Ceja MD Current Medications Medications (Trade) Dose Ordered Sig/Valeriano Route PRN Reason Start Time Stop Time Status Last Admin Dose Admin Acetaminophen (Tylenol) 650 mg Q4H PRN NG Mild Pain/Temp > 100.5 11/29/19 08:00 12/29/19 07:59 11/30/19 17:37 Albuterol/ Ipratropium (Albuterol/ Ipratropium) 3 ml Q4H PRN HHN Shortness of Breath 11/29/19 15:15 12/04/19 15:14 11/30/19 19:19 Carvedilol (Coreg) 12.5 mg EVERY 12 HOURS NG 11/30/19 21:00 12/28/19 20:59 12/01/19 09:48 Chlorhexidine Gluconate (Katia-Hex 2%) 1 applic DAILY@2000 TOPIC 11/25/19 20:00 12/25/19 19:59 11/30/19 20:37 Dextrose (Dextrose 50%) 25 ml Q30M PRN IV Hypoglycemia 11/24/19 13:30 12/24/19 13:29 Dextrose (Dextrose 50%) 50 ml Q30M PRN IV Hypoglycemia 11/24/19 13:30 12/24/19 13:29 Fentanyl Citrate 2500 mcg/Sodium Chloride 250 ml @ 0 mls/hr Q24H IV 11/24/19 20:00 12/01/19 19:59 11/24/19 19:54 Folic Acid (Folate) 5 mg DAILY GT 11/27/19 09:00 12/27/19 08:59 12/01/19 09:48 Heparin Sodium (Porcine) (Heparin 5000 units/ml) 5,000 units EVERY 12 HOURS SUBQ 11/24/19 21:00 12/24/19 20:59 12/01/19 09:49 Hydralazine HCl (Apresoline) 25 mg EVERY 6 HOURS GT 11/30/19 12:00 12/28/19 09:14 12/01/19 06:13 Insulin Aspart (NovoLOG) BEFORE MEALS AND HS SUBQ 11/24/19 16:30 12/24/19 16:29 11/29/19 05:57 Isosorbide Dinitrate (Isordil) 10 mg Q6HR ORAL 11/28/19 12:00 12/28/19 11:59 12/01/19 06:12 Lansoprazole (Prevacid) 30 mg BID NG 11/30/19 18:00 12/30/19 17:59 12/01/19 18:15 Meropenem 500 mg/ Sodium Chloride 55 ml @ 110 mls/hr Q24H IVPB 11/30/19 12:00 12/05/19 11:59 12/01/19 11:48 Morphine Sulfate (Morphine Sulfate) 2 mg Q4H PRN IVP Severe Pain (Pain Scale 7-10) 11/29/19 13:15 12/06/19 13:14 11/29/19 13:28 Nitroglycerin (Ntg) 0.4 mg Q5M PRN SL Prn Chest Pain 11/24/19 09:30 12/24/19 09:29 11/24/19 09:23 Norepinephrine Bitartrate 8 mg/ Dextrose 500 ml @ 0 mls/hr Q24H IV 11/25/19 04:30 12/25/19 04:29 11/25/19 04:54 Ondansetron HCl (Zofran) 4 mg Q6H PRN IVP Nausea & Vomiting 11/24/19 13:30 12/24/19 13:29 Polyethylene Glycol (Miralax) 17 gm DAILYPRN PRN ORAL Constipation 11/24/19 13:30 12/24/19 13:29 Promethazine HCl/ Codeine (Phenergan with Codeine) 5 ml Q4H PRN ORAL For Cough 11/24/19 13:30 12/24/19 13:29 Allergies: Coded Allergies: No Known Allergies (Unverified , 11/24/19) ROS Limited/Unobtainable: Yes Subjective 59 YO M admitted with respirtory failure. Cover for Int Qamar-Dr Ceja. BIPAP. ICU. Objective Last Vital Signs Date Time Temp Pulse Resp B/P (MAP) Pulse Ox O2 Delivery O2 Flow Rate FiO2 12/01/19 18:00 159/74 12/01/19 18:00 85 14 100 12/01/19 16:49 100 12/01/19 16:00 Bi-pap Bi-pap Bi-pap 12/01/19 16:00 98.8 11/29/19 15:14 10.0 Laboratory Tests Test 12/01/19 05:11 12/01/19 09:00 White Blood Count 18.3 K/UL (4.8-10.8) H Red Blood Count 2.80 M/UL (4.70-6.10) L Hemoglobin 8.1 G/DL (14.2-18.0) L Hematocrit 23.7 % (42.0-52.0) L Mean Corpuscular Volume 85 FL (80-99) Mean Corpuscular Hemoglobin 29.1 PG (27.0-31.0) Mean Corpuscular Hemoglobin Concent 34.3 G/DL (32.0-36.0) Red Cell Distribution Width 14.0 % (11.6-14.8) Platelet Count 210 K/UL (150-450) Mean Platelet Volume 5.1 FL (6.5-10.1) L Neutrophils (%) (Auto) % (45.0-75.0) Lymphocytes (%) (Auto) % (20.0-45.0) Monocytes (%) (Auto) % (1.0-10.0) Eosinophils (%) (Auto) % (0.0-3.0) Basophils (%) (Auto) % (0.0-2.0) Differential Total Cells Counted 100 Neutrophils % (Manual) 82 % (45-75) H Lymphocytes % (Manual) 4 % (20-45) L Monocytes % (Manual) 10 % (1-10) Eosinophils % (Manual) 4 % (0-3) H Basophils % (Manual) 0 % (0-2) Band Neutrophils 0 % (0-8) Platelet Estimate Adequate Platelet Morphology Normal Hypochromasia 2+ Anisocytosis 1+ Sodium Level 145 MMOL/L (136-145) Potassium Level 3.5 MMOL/L (3.5-5.1) Chloride Level 104 MMOL/L (98-107) Carbon Dioxide Level 27 MMOL/L (21-32) Anion Gap 14 mmol/L (5-15) Blood Urea Nitrogen 52 mg/dL (7-18) H Creatinine 3.9 MG/DL (0.55-1.30) H Estimat Glomerular Filtration Rate 19.4 mL/min (>60) Glucose Level 130 MG/DL (74-106) H Calcium Level 9.2 MG/DL (8.5-10.1) Phosphorus Level 3.5 MG/DL (2.5-4.9) Magnesium Level 2.0 MG/DL (1.8-2.4) Total Bilirubin 0.8 MG/DL (0.2-1.0) Aspartate Amino Transf (AST/SGOT) 40 U/L (15-37) H Alanine Aminotransferase (ALT/SGPT) 38 U/L (12-78) Alkaline Phosphatase 100 U/L (46-116) Total Protein 6.3 G/DL (6.4-8.2) L Albumin 1.6 G/DL (3.4-5.0) L Globulin 4.7 g/dL Albumin/Globulin Ratio 0.3 (1.0-2.7) L Arterial Blood pH 7.426 (7.350-7.450) Arterial Blood Partial Pressure CO2 41.3 mmHg (35.0-45.0) Arterial Blood Partial Pressure O2 88.6 mmHg (75.0-100.0) Arterial Blood HCO3 26.6 mmol/L (22.0-26.0) H Arterial Blood Oxygen Saturation 95.9 % (95-100) Arterial Blood Base Excess 2.0 (-2-2) Garry Test Positive Microbiology Date/Time Source Procedure Growth Status 11/29/19 13:20 Blood Blood Culture - Preliminary NO GROWTH AFTER 24 HOURS Resulted 11/29/19 13:20 Blood Blood Culture - Preliminary Resulted 11/29/19 03:30 Sputum Induced Gram Stain - Final Resulted 11/29/19 03:30 Sputum Culture - Preliminary Escherichia Coli Resulted Intake and Output 11/30/19 12/01/19 19:00 07:00 Intake Total 2330.000 ml Output Total 180 ml 265 ml Balance 2150.000 ml -265 ml IV Total 330.000 ml Hemodialysis 2000 ml Output Urine Total 180 ml 265 ml Objective PHYSICAL EXAMINATION: GENERAL: The patient is a well-developed and well-nourished male, in moderate respiratory distress. HEENT: Eyes, pupils are equal and responsive to light and accommodation. Extraocular movements are intact. NECK: Supple without lymphadenopathy. CHEST: BIPAP; Mechanical breath sounds, otherwise without wheezes or rales. CARDIOVASCULAR: Regular rate. S1 and S2 normal without murmurs, rubs, or gallops. ABDOMEN: Soft, nontender, and nondistended. Positive bowel sounds. No evidence of hepatosplenomegaly. Currently, no rebound or guarding noted. EXTREMITIES: Negative for clubbing, cyanosis, or edema. RECTAL/GENITAL: Refused. NEUROLOGIC: Cranial nerves II through XII are grossly intact without focal deficits. Assessment/Plan Assessment/Plan ASSESSMENT: This is a 59-year-old male. 1. Respiratory failure. 2. Pneumonia. 3. Probable sepsis. 4. Diabetes type 2. 5. Hypertension. 6. Hypercholesterolemia. TREATMENT: 1. Respiratory failure/pneumonia. The patient is currently on BIPAP in the intensive care unit. A Pulmonary consultation has been obtained with Dr. Brandy Milton. ABX=vancomycin, Levaquin and cefepime to cover healthcare-associated pneumonia. Continue Tamiflu per ID=Dr Andrade. We will follow recommendations of Pulmonary. Sputum cultures are pending at this time. 2. Probable sepsis. Blood cultures are pending. As above, the patient has been placed empirically on vancomycin and cefepime. 3. Diabetes type 2. A NovoLog sliding scale has been instituted. 4. Hypertension. The patient is currently hypotensive. Hold antihypertensive medication. 5. Hypercholesterolemia. Continue atorvastatin as above. Sidney Galaviz MD Dec 01, 2019 19:22
--- NOTE | 2019-12-01 19:49 | NUR ---
HAND-OFF: Report given to YUKI Quintana.
[2019-12-01] MEDS: Dyna-Hex 2% Top Sol 2oz TOPIC SCH (20:24)
--- NOTE | 2019-12-01 21:30 | Cardiology Progress Note ---
Assessment/Plan Assessment/Plan 1. Respiratory failure, probably pneumonia. 2. chf acute systolic 3. History of aortic valve replacement per records but no surgical scar on the chest wall.(pt denies avr) 4. History of coronary artery disease, unknown details. 5. Abnormal cardiac enzymes likely secondary to demand 6. septic shock 7. renal failure 8. metabolic respiratory acidosis 9. ARDS on bipapa back in icu cxr still abn gettign daily dialysis on cm med may be infuture can use acei but for now isordil hydralazine combination labs ntoe d d/w rn on iv abx await identification of bacteria ards better need records form [facility] but on question pt adn fiance no preoceedure performed such as ptca stent or tavr at good same recently nothing to suggeat avr on liz cxr increase the isordil increase hydralazien may need norvasc dialysis uf Subjective Cardiovascular: Denies: chest pain, lightheadedness Respiratory: Reports: shortness of breath, wheezing Gastrointestinal/Abdominal: Denies: abdominal pain Genitourinary: Denies: burning Objective Last 24 Hour Vital Signs Date Time Temp Pulse Resp B/P (MAP) Pulse Ox O2 Delivery O2 Flow Rate FiO2 12/01/19 20:24 87 170/64 12/01/19 20:00 Bi-pap Bi-pap Bi-pap 12/01/19 20:00 60 12/01/19 20:00 98.9 89 26 180/78 (112) 100 12/01/19 20:00 69 12/01/19 19:16 84 18 100 100 12/01/19 19:16 100 Bi-Pap 60 12/01/19 19:00 92 16 163/71 (101) 100 12/01/19 18:00 159/74 12/01/19 18:00 159/74 12/01/19 18:00 85 14 159/74 (102) 100 12/01/19 17:00 85 17 169/70 (103) 100 12/01/19 16:49 85 16 100 100 12/01/19 16:00 Bi-pap Bi-pap Bi-pap 12/01/19 16:00 84 12/01/19 16:00 60 12/01/19 16:00 98.8 85 21 154/70 (98) 100 12/01/19 15:00 87 15 100 60 12/01/19 15:00 78 18 124/51 (75) 100 12/01/19 14:00 81 17 118/56 (76) 100 12/01/19 13:24 87 14 100 60 12/01/19 13:00 84 17 132/46 (74) 100 12/01/19 12:00 87 12/01/19 12:00 97.8 82 13 141/62 (88) 100 12/01/19 12:00 60 12/01/19 12:00 Bi-pap Bi-pap Bi-pap 12/01/19 11:00 80 15 135/61 (85) 100 12/01/19 10:57 89 19 100 60 12/01/19 10:00 86 18 129/51 (77) 100 12/01/19 09:48 89 140/60 12/01/19 09:16 91 14 100 60 12/01/19 09:00 91 16 140/58 (85) 100 12/01/19 08:00 100 12/01/19 08:00 80 12/01/19 08:00 97.6 90 14 147/62 (90) 100 12/01/19 08:00 Bi-pap Bi-pap 12/01/19 07:00 96 12 147/62 (90) 100 12/01/19 06:59 95 12 100 60 12/01/19 06:59 100 Bi-Pap 60 12/01/19 06:13 154/53 12/01/19 06:12 154/53 12/01/19 06:00 96 15 154/53 (86) 100 12/01/19 05:17 94 18 100 100 12/01/19 05:00 98 16 145/72 (96) 100 12/01/19 04:30 151/64 12/01/19 04:00 100 12/01/19 04:00 98.8 97 12 156/69 (98) 100 12/01/19 04:00 Bi-pap Bi-pap Bi-pap 12/01/19 04:00 96 12/01/19 03:00 95 16 151/64 (93) 100 12/01/19 02:37 91 17 100 100 12/01/19 02:00 95 14 137/57 (83) 100 12/01/19 01:00 98 20 141/51 (81) 100 12/01/19 00:57 95 18 100 100 12/01/19 00:00 Bi-pap Bi-pap Bi-pap 12/01/19 00:00 96 12/01/19 00:00 98.4 97 25 146/69 (94) 100 11/30/19 23:55 148/69 11/30/19 23:55 148/69 11/30/19 23:00 97 13 157/61 (93) 100 11/30/19 22:59 91 18 100 100 11/30/19 22:00 94 13 152/73 (99) 100 General Appearance: no apparent distress, alert, other - on bipap Cardiovascular: normal rate Respiratory/Chest: crackles/rales - few Abdomen: normal bowel sounds, non tender, soft Extremities: no swelling Intake and Output 11/30/19 12/01/19 19:00 07:00 Intake Total 2330.000 ml Output Total 180 ml 265 ml Balance 2150.000 ml -265 ml IV Total 330.000 ml Hemodialysis 2000 ml Output Urine Total 180 ml 265 ml Laboratory Tests Test 12/01/19 05:11 12/01/19 09:00 White Blood Count 18.3 K/UL (4.8-10.8) H Red Blood Count 2.80 M/UL (4.70-6.10) L Hemoglobin 8.1 G/DL (14.2-18.0) L Hematocrit 23.7 % (42.0-52.0) L Mean Corpuscular Volume 85 FL (80-99) Mean Corpuscular Hemoglobin 29.1 PG (27.0-31.0) Mean Corpuscular Hemoglobin Concent 34.3 G/DL (32.0-36.0) Red Cell Distribution Width 14.0 % (11.6-14.8) Platelet Count 210 K/UL (150-450) Mean Platelet Volume 5.1 FL (6.5-10.1) L Neutrophils (%) (Auto) % (45.0-75.0) Lymphocytes (%) (Auto) % (20.0-45.0) Monocytes (%) (Auto) % (1.0-10.0) Eosinophils (%) (Auto) % (0.0-3.0) Basophils (%) (Auto) % (0.0-2.0) Differential Total Cells Counted 100 Neutrophils % (Manual) 82 % (45-75) H Lymphocytes % (Manual) 4 % (20-45) L Monocytes % (Manual) 10 % (1-10) Eosinophils % (Manual) 4 % (0-3) H Basophils % (Manual) 0 % (0-2) Band Neutrophils 0 % (0-8) Platelet Estimate Adequate Platelet Morphology Normal Hypochromasia 2+ Anisocytosis 1+ Sodium Level 145 MMOL/L (136-145) Potassium Level 3.5 MMOL/L (3.5-5.1) Chloride Level 104 MMOL/L (98-107) Carbon Dioxide Level 27 MMOL/L (21-32) Anion Gap 14 mmol/L (5-15) Blood Urea Nitrogen 52 mg/dL (7-18) H Creatinine 3.9 MG/DL (0.55-1.30) H Estimat Glomerular Filtration Rate 19.4 mL/min (>60) Glucose Level 130 MG/DL (74-106) H Calcium Level 9.2 MG/DL (8.5-10.1) Phosphorus Level 3.5 MG/DL (2.5-4.9) Magnesium Level 2.0 MG/DL (1.8-2.4) Total Bilirubin 0.8 MG/DL (0.2-1.0) Aspartate Amino Transf (AST/SGOT) 40 U/L (15-37) H Alanine Aminotransferase (ALT/SGPT) 38 U/L (12-78) Alkaline Phosphatase 100 U/L (46-116) Total Protein 6.3 G/DL (6.4-8.2) L Albumin 1.6 G/DL (3.4-5.0) L Globulin 4.7 g/dL Albumin/Globulin Ratio 0.3 (1.0-2.7) L Arterial Blood pH 7.426 (7.350-7.450) Arterial Blood Partial Pressure CO2 41.3 mmHg (35.0-45.0) Arterial Blood Partial Pressure O2 88.6 mmHg (75.0-100.0) Arterial Blood HCO3 26.6 mmol/L (22.0-26.0) H Arterial Blood Oxygen Saturation 95.9 % (95-100) Arterial Blood Base Excess 2.0 (-2-2) Garry Test Positive Microbiology Date/Time Source Procedure Growth Status 11/29/19 13:20 Blood Blood Culture - Preliminary NO GROWTH AFTER 24 HOURS Resulted 11/29/19 13:20 Blood Blood Culture - Preliminary Resulted 11/29/19 03:30 Sputum Induced Gram Stain - Final Resulted 11/29/19 03:30 Sputum Culture - Preliminary Escherichia Coli Resulted Antonio Byrd MD Dec 01, 2019 21:30
--- NOTE | 2019-12-01 22:24 | NUR ---
NURSE NOTES: Received patient from YUKI Parr. Patient alert to name with a delay in response. Patient denies distress at this time. Patient on BiPAP 15/ with 60% FiO2. R nares nasal gastric tube noted at 75cm. Tube clamped and reverified at this time with auscultation. Patient NPO due to BiPAP. 16F Cruz for urine retention in place, patent, and asymptomatic. Patient has right femoral Chris catheter that is asymptomatic and dressing dry and intact. Patient has sacral old wound with small open spot, right leg cellulitis, old wound on top of left leg BKA stump, and generalized edema with +1 nonpitting in right leg. Right internal jugular central line catheter patent, asymptomatic, and saline locked at this time. Patient bed in low position with bed alarm on and call light in reach at this time. Oral care and repositioning done. Will continue to monitor. Addendum: 12/01/19 at 2322 by Eden Cartwright RN Above note is for 12/01/191929.
--- NOTE | 2019-12-01 23:00 | NUR ---
NURSE NOTES: Patient restless, pulled out NGT and Bipap mask. Patient confused oriented to self. Bilateral soft wrist restraints applied. will continue to monitor.
--- NOTE | 2019-12-01 23:24 | NUR ---
HAND-OFF: Report given to Tyson Bush RN.
[2019-12-02] VITALS (24 sets, daily range): BP systolic 119–154; BP diastolic 42–64
--- NOTE | 2019-12-02 00:20 | NUR ---
NURSE NOTES: LE; PATIENT ALERT, ORIENTED X2, NON COMPLIANT STATUS, DENIED PAIN OR SOB, ON BIPAP I/E 15/, FIO2 75%, RATE 12, O2 SATURATION 100% NOTED, KEPT HOB 30 DEGREES, HEART RATE 80'S/MIN SR NOTED, ABDOMEN SOFT, NO NGT STATUS, F/C INTACT AND PATENT, YELLOW URINE OUTED, LEFT BKA, SOFIA CATHETER WITH PIG TAIL TO RIGHT FEMORAL AND TLC TO RIGHT IJ, INTACT AND PATENT, 2 POINT SOFT RESTRAINTS FOR SAFETY, ON P200 BED, MADE LOWER BED POSITION, CALL LIGHT WITHIN REACH, WILL CONTINUE TO MONITOR.
--- NOTE | 2019-12-02 02:29 | NUR ---
NURSE NOTES: PATIENT SLEEPING ON AND OFF STATUS, NO PAIN OR SOB NOTED AT THIS TIME.
--- NOTE | 2019-12-02 03:11 | NUR ---
NURSE NOTES: PATIENT AWOKE, TRIED TO TOUCH BIPAP MACHINE THAT GIVEN ORIENTATION, SECURED 2 POINT SOFT RESTRAINTS, WILL CONTINUE TO MONITOR.
--- NOTE | 2019-12-02 04:15 | NUR ---
NURSE NOTES: LE; MORNING CARE WAS DONE, NO BM STATUS.
--- NOTE | 2019-12-02 04:53 | NUR ---
NURSE NOTES: INSERTED AND FIXED NGT TO RIGHT NARES, VERIFIED 2 NURSES, KEPT HOB 30 DEGREES, WILL CONTINUE TO MONITOR.
[2019-12-02 05:40] LABS: HEMATOCRIT 23.7 % (42.0-52.0); HEMOGLOBIN 7.9 G/DL (14.2-18.0); MEAN CORPUSCULAR VOLUME 86 FL (80-99); PLATELET COUNT 210 K/UL (150-450); RED BLOOD COUNT 2.76 M/UL (4.70-6.10); WHITE BLOOD COUNT 13.9 K/UL (4.8-10.8)
[2019-12-02] MEDS: HydrALAZINE 50mg tab GT SCH ×5 (06:00→23:49)
[2019-12-02] MEDS: NovoLOG Insulin Flexpen SUBQ SCH ×4 (06:05→20:56)
[2019-12-02 06:08] LABS: ALANINE AMINOTRANSFERASE 38 U/L (12-78); ALBUMIN 1.6 G/DL (3.4-5.0); ALBUMIN/GLOBULIN RATIO 0.3 (1.0-2.7); ALKALINE PHOSPHATASE 104 U/L (46-116); ANION GAP 16 mmol/L (5-15); ASPARTATE AMINO TRANSFERASE 41 U/L (15-37); BILIRUBIN,TOTAL 0.7 MG/DL (0.2-1.0); BLOOD UREA NITROGEN 42 mg/dL (7-18); CALCIUM 9.3 MG/DL (8.5-10.1); CARBON DIOXIDE 26 MMOL/L (21-32); CHLORIDE 105 MMOL/L (98-107); CREATININE 3.8 MG/DL (0.55-1.30); POTASSIUM 3.3 MMOL/L (3.5-5.1); SODIUM 147 MMOL/L (136-145)
[2019-12-02 06:09] LABS: INR 1.2 (0.9-1.1)
--- NOTE | 2019-12-02 06:35 | Diagnostic Imaging Report ---
Indication: Post nasogastric tube placement Technique: Supine view of the abdomen Comparison: 11/28/2019 Findings: There is a nasogastric tube, tip coiled in the gastric fundus, proximal port well beyond the expected level of the gastroesophageal junction. Visualized bowel gas is unremarkable. There is bilateral pulmonary parenchymal disease demonstrated Impression: Satisfactory nasogastric intubation Other findings as noted This agrees with the preliminary interpretation provided overnight by [facility] teleradiology service.
--- NOTE | 2019-12-02 06:50 | NUR ---
NURSE NOTES: LE: NO ACUTE DISTRESS NOTED AT THIS SHIFT.
--- NOTE | 2019-12-02 07:00 | NUR ---
NURSE NOTES: Message left for MD Bush about positive ESBL sputum. awaiting call back
--- NOTE | 2019-12-02 07:04 | NUR ---
HAND-OFF: Report given to YUKI LYON.
--- NOTE | 2019-12-02 07:05 | NUR ---
NURSE NOTES: Pt received from YUKI Mehta. Pt is awake in bed, opens eyes when called by name, follows commands, AAOx 2, pupils are equal and round 3 mm bilaterally with sluggish light rxn. Pt is SR to monitoring and evaluation advisor, afebrile. Bilat radial pulses palpable and right dorsalis pedis pulse 2+ bilaterally. cap refill< 3 sec. Pt noted on Bipap 15/7 FiO2 75%. Bilat upper and lower left lung lobes noted diminished. Bilat upper and lower right lung lobes CTA. Right nares NGT noted clamped, TF held at this time for Bipap use. Abd is round, soft, and non-tender with active bowel sounds to all quadrants. Cruz noted draining yellow urine. Skin alterations noted. Noted left BKA. Pt has a right femoral ivrgilio cath with pigtail, dry and intact dressing noted. RIJ TLC noted with dry and intact dressing running NS TKO at 5 cc/hr. 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 Bed in lowest position, alarm on, side rails up x 2 , call light within reach, will continue to monitor.
--- NOTE | 2019-12-02 07:10 | NUR ---
RESPIRATORY NOTE: Recived pt on Bipap 15/7back up rate 12-75%FiO2. Titrated FiO2 down to 65%. Foam tapes in place to prevent skin breakdown. Pt is awake, alert, able to follow simple commands, tolerating well the Bipap's settings. No SOb or resp distress noted at this time. Alarms are set and audible, Bipap is plugged into the red outlet, ambu bag at bedside. YUKI Jasso aware. Will continue to monitor.
--- NOTE | 2019-12-02 08:00 | NUR ---
NURSE NOTES: Dr Sidhu at bedside assessing pt and is made aware of pt's potassium level today of 3.3, no new orders placed at this time.
[2019-12-02 08:28] LABS: PHOSPHORUS 3.9 MG/DL (2.5-4.9)
--- NOTE | 2019-12-02 09:00 | NUR ---
NURSE NOTES: Pt noted without belongings except for black leg brace at bedside. Per pt, omar (Kayley) took his black bag home along with his cell phone, lap top continuity reader, clothes, reading glasses, and debit cards. Belonging list reviewed and updated.
[2019-12-02] MEDS: Carvedilol 12.5mg tab NG SCH ×2 (09:17→20:55)
[2019-12-02] MEDS: Heparin 5000 units/ml inj SUBQ SCH ×2 (09:18→20:57)
--- NOTE | 2019-12-02 11:30 | NUR ---
NURSE NOTES: Dr Milton at bedside assessing pt and requested that we place pt on venturi mask at this time.
--- NOTE | 2019-12-02 11:44 | Infectious Diseases Prog Note ---
Assessment/Plan Assessment/Plan Assessment: Septic Shock- SP Pneumonia -12/01 CXR: probably unchanged bilateral diffuse interstitial and airspace disease. -11/30 sp cx:Interim marked worsening of bilateral pulmonary parenchymal disease, over one day -11/29 sp cx ESBL E.coli (S zosyn, Imipenem, bactrim) -11/24 u/a neg; ucx neg Bcx NTD influenza sc neg CXR: Bilateral dense consolidation, likely pneumonia. Pulmonary edema also possible. Correlate with clinical findings sp cx ordered,not done legionella ag urine neg S. hominis bacteremia- RIJ infection vs contamination -11/27 Bcx 1/4 S. hominis; 11/29 Bcx 1/2 S. hominis (RIJ), NTD x2 (peripheral) Fever,SP Leukocytosis, increased, now improving ARDS Acute respiratory failure s/p intubation 11/24, sp extubation 11/29, now on bipap GANGA on CKD; now on HD 11/27 Elevated LFTs;improving Troponinemia Dm2 Gout s/p L BKA allergic rhinitis CAD s/p stent prosthetic AVR hx of esophagitis PVD chronic sCHF HLD HTN SNF resident Plan: -Continue empiric Meropenem #3/7 for ESBL E.coli PNA -12/01 SP IV Vancomycin #8, Tamiflu #7 -11/30 SP LEvaquin #7, Cefepime #7 -f/u cx -Monitor CBC/CMP, temperatures -f/u sp cx -ICU care -aspiration precautions -repeat Bcx x2 -Remove R IJ discussed with RN Thank you for this consultation. Will continue to follow along with you. Subjective Allergies: Coded Allergies: No Known Allergies (Unverified , 11/24/19) Subjective afebrile >48hrs wbc improvi persist bacteremic on bipap Objective Vital Signs Last 24 Hour Vital Signs Date Time Temp Pulse Resp B/P (MAP) Pulse Ox O2 Delivery O2 Flow Rate FiO2 12/02/19 11:00 71 17 124/52 (76) 100 12/02/19 10:48 81 12 100 45 12/02/19 10:00 84 14 126/53 (77) 100 12/02/19 10:00 45 12/02/19 09:17 138/56 12/02/19 09:17 75 138/56 12/02/19 09:00 87 13 138/56 (83) 100 12/02/19 08:50 87 13 100 55 12/02/19 08:00 83 16 131/53 (79) 100 12/02/19 08:00 83 12/02/19 08:00 98.8 83 16 131/53 (79) 100 12/02/19 08:00 55 12/02/19 07:10 100 Bi-Pap 75 12/02/19 07:10 82 15 100 65 12/02/19 07:10 65 12/02/19 07:00 83 18 139/55 (83) 100 12/02/19 06:00 79 18 134/53 (80) 100 12/02/19 06:00 134/53 12/02/19 05:24 88 22 100 90 12/02/19 05:00 83 19 149/64 (92) 100 12/02/19 04:30 151/60 12/02/19 04:00 98.6 85 13 151/60 (90) 100 12/02/19 04:00 Bi-pap Bi-pap Bi-pap 12/02/19 04:00 75 12/02/19 03:12 87 12/02/19 03:00 85 16 154/60 (91) 100 12/02/19 02:55 81 23 100 90 12/02/19 02:00 83 18 139/52 (81) 100 12/02/19 01:00 85 16 145/56 (85) 100 12/02/19 00:54 84 22 100 100 12/02/19 00:47 88 12/02/19 00:00 Bi-pap Bi-pap Bi-pap 12/02/19 00:00 132/65 12/02/19 00:00 99.2 87 19 129/51 (77) 100 12/02/19 00:00 75 12/01/19 23:29 85 23 100 100 12/01/19 23:00 85 19 143/50 (81) 100 12/01/19 22:15 85 20 177/66 (103) 100 12/01/19 22:00 86 19 171/65 (100) 100 12/01/19 21:00 86 16 168/62 (97) 100 12/01/19 20:24 87 170/64 12/01/19 20:00 Bi-pap Bi-pap Bi-pap 12/01/19 20:00 60 12/01/19 20:00 98.9 89 26 180/78 (112) 100 12/01/19 20:00 69 12/01/19 19:16 84 18 100 100 12/01/19 19:16 100 Bi-Pap 60 12/01/19 19:00 92 16 163/71 (101) 100 12/01/19 18:00 159/74 12/01/19 18:00 159/74 12/01/19 18:00 85 14 159/74 (102) 100 12/01/19 17:00 85 17 169/70 (103) 100 12/01/19 16:49 85 16 100 100 12/01/19 16:00 Bi-pap Bi-pap Bi-pap 12/01/19 16:00 84 12/01/19 16:00 60 12/01/19 16:00 98.8 85 21 154/70 (98) 100 12/01/19 15:00 87 15 100 60 12/01/19 15:00 78 18 124/51 (75) 100 12/01/19 14:00 81 17 118/56 (76) 100 12/01/19 13:24 87 14 100 60 12/01/19 13:00 84 17 132/46 (74) 100 12/01/19 12:00 87 12/01/19 12:00 97.8 82 13 141/62 (88) 100 12/01/19 12:00 60 12/01/19 12:00 Bi-pap Bi-pap Bi-pap Height (Feet): 5 Height (Inches): 8.00 Weight (Pounds): 246 Objective GENERAL: not in distress HEENT: Eyes, pupils are equal and responsive to light and accommodation. Extraocular movements are intact. NECK: Supple CHEST: no wheezes or rales. CARDIOVASCULAR: Regular rate. S1 and S2 normal without murmurs, rubs, or gallops. ABDOMEN: Soft, nontender, and nondistended. Positive bowel sounds. No evidence of hepatosplenomegaly. Currently, no rebound or guarding noted. EXTREMITIES: Negative for clubbing, cyanosis, or edema. Microbiology Date/Time Source Procedure Growth Status 11/29/19 13:20 Blood Blood Culture - Preliminary NO GROWTH AFTER 48 HOURS Resulted 11/29/19 13:20 Blood Blood Culture - Final Staph Hominis Ssp Hominis Complete Laboratory Tests Test 12/02/19 04:50 White Blood Count 13.9 K/UL (4.8-10.8) H Red Blood Count 2.76 M/UL (4.70-6.10) L Hemoglobin 7.9 G/DL (14.2-18.0) L Hematocrit 23.7 % (42.0-52.0) L Mean Corpuscular Volume 86 FL (80-99) Mean Corpuscular Hemoglobin 28.7 PG (27.0-31.0) Mean Corpuscular Hemoglobin Concent 33.5 G/DL (32.0-36.0) Red Cell Distribution Width 14.0 % (11.6-14.8) Platelet Count 210 K/UL (150-450) Mean Platelet Volume 5.0 FL (6.5-10.1) L Neutrophils (%) (Auto) % (45.0-75.0) Lymphocytes (%) (Auto) % (20.0-45.0) Monocytes (%) (Auto) % (1.0-10.0) Eosinophils (%) (Auto) % (0.0-3.0) Basophils (%) (Auto) % (0.0-2.0) Prothrombin Time 12.6 SEC (9.30-11.50) H Prothromb Time International Ratio 1.2 (0.9-1.1) H Activated Partial Thromboplast Time 39 SEC (23-33) H Sodium Level 147 MMOL/L (136-145) H Potassium Level 3.3 MMOL/L (3.5-5.1) L Chloride Level 105 MMOL/L (98-107) Carbon Dioxide Level 26 MMOL/L (21-32) Anion Gap 16 mmol/L (5-15) H Blood Urea Nitrogen 42 mg/dL (7-18) H Creatinine 3.8 MG/DL (0.55-1.30) H Estimat Glomerular Filtration Rate 19.9 mL/min (>60) Glucose Level 118 MG/DL (74-106) H Calcium Level 9.3 MG/DL (8.5-10.1) Phosphorus Level 3.9 MG/DL (2.5-4.9) Magnesium Level 2.1 MG/DL (1.8-2.4) Total Bilirubin 0.7 MG/DL (0.2-1.0) Aspartate Amino Transf (AST/SGOT) 41 U/L (15-37) H Alanine Aminotransferase (ALT/SGPT) 38 U/L (12-78) Alkaline Phosphatase 104 U/L (46-116) Total Protein 6.5 G/DL (6.4-8.2) Albumin 1.6 G/DL (3.4-5.0) L Globulin 4.9 g/dL Albumin/Globulin Ratio 0.3 (1.0-2.7) L Current Medications Medications (Trade) Dose Ordered Sig/Valeriano Route PRN Reason Start Time Stop Time Status Last Admin Dose Admin Acetaminophen (Tylenol) 650 mg Q4H PRN NG Mild Pain/Temp > 100.5 11/29/19 08:00 12/29/19 07:59 11/30/19 17:37 Albuterol/ Ipratropium (Albuterol/ Ipratropium) 3 ml Q4H PRN HHN Shortness of Breath 11/29/19 15:15 12/04/19 15:14 11/30/19 19:19 Amlodipine Besylate (Norvasc) 2.5 mg DAILYPRN PRN ORAL sbp greater than 150 12/01/19 21:30 12/31/19 21:29 Carvedilol (Coreg) 12.5 mg EVERY 12 HOURS NG 11/30/19 21:00 12/28/19 20:59 12/02/19 09:17 Chlorhexidine Gluconate (Katia-Hex 2%) 1 applic DAILY@2000 TOPIC 11/25/19 20:00 12/25/19 19:59 12/01/19 20:24 Dextrose (Dextrose 50%) 25 ml Q30M PRN IV Hypoglycemia 11/24/19 13:30 12/24/19 13:29 Dextrose (Dextrose 50%) 50 ml Q30M PRN IV Hypoglycemia 11/24/19 13:30 12/24/19 13:29 Folic Acid (Folate) 5 mg DAILY GT 11/27/19 09:00 12/27/19 08:59 12/02/19 09:16 Heparin Sodium (Porcine) (Heparin 5000 units/ml) 5,000 units EVERY 12 HOURS SUBQ 11/24/19 21:00 12/24/19 20:59 12/02/19 09:18 Hydralazine HCl (Apresoline) 50 mg EVERY 6 HOURS GT 12/02/19 00:00 01/01/20 00:00 Insulin Aspart (NovoLOG) BEFORE MEALS AND HS SUBQ 11/24/19 16:30 12/24/19 16:29 11/29/19 05:57 Isosorbide Dinitrate (Isordil) 20 mg TID ORAL 12/02/19 09:00 01/01/20 08:59 12/02/19 09:17 Lansoprazole (Prevacid) 30 mg BID NG 11/30/19 18:00 12/30/19 17:59 12/02/19 09:16 Meropenem 500 mg/ Sodium Chloride 55 ml @ 110 mls/hr Q24H IVPB 11/30/19 12:00 12/05/19 11:59 12/01/19 11:48 Morphine Sulfate (Morphine Sulfate) 2 mg Q4H PRN IVP Severe Pain (Pain Scale 7-10) 11/29/19 13:15 12/06/19 13:14 11/29/19 13:28 Nitroglycerin (Ntg) 0.4 mg Q5M PRN SL Prn Chest Pain 11/24/19 09:30 12/24/19 09:29 11/24/19 09:23 Norepinephrine Bitartrate 8 mg/ Dextrose 500 ml @ 0 mls/hr Q24H IV 11/25/19 04:30 12/25/19 04:29 11/25/19 04:54 Ondansetron HCl (Zofran) 4 mg Q6H PRN IVP Nausea & Vomiting 11/24/19 13:30 12/24/19 13:29 Polyethylene Glycol (Miralax) 17 gm DAILYPRN PRN ORAL Constipation 11/24/19 13:30 12/24/19 13:29 Promethazine HCl/ Codeine (Phenergan with Codeine) 5 ml Q4H PRN ORAL For Cough 11/24/19 13:30 12/24/19 13:29 Yojana Bennett M.D. Dec 02, 2019 11:44
--- NOTE | 2019-12-02 11:58 | Pulmonolgy Critical Care Note ---
Critical Care - Asmt/Plan Problems: (1) Acute respiratory failure (2) Septic shock (3) HCAP (healthcare-associated pneumonia) (4) Chronic systolic heart failure (5) Chronic kidney disease, stage 3 (6) Diabetes mellitus (7) History of hypertension (8) History of gout (9) History of left below knee amputation Respiratory: monitor respiratory rate, adjust FIO2, CXR, weaning trial Cardiac: continue to monitor HR/BP Gastrointestinal: continue feedings/current rate Endocrine: monitor blood sugar, continue sliding scale insulin Hematologic: monitor H/H, transfuse if hgb<8.5 Neurologic: PRN Morphine, keep patient comfortable Affect: PRN ativan Prophylaxis: Protonix Disposition: keep in ICU Time Spent (Minutes): 40 Notes Reviewed: 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, 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, renal Critical Care - Objective Last 24 Hour Vital Signs Date Time Temp Pulse Resp B/P (MAP) Pulse Ox O2 Delivery O2 Flow Rate FiO2 12/02/19 11:00 71 17 124/52 (76) 100 12/02/19 10:48 81 12 100 45 12/02/19 10:00 84 14 126/53 (77) 100 12/02/19 10:00 45 12/02/19 09:17 138/56 12/02/19 09:17 75 138/56 12/02/19 09:00 87 13 138/56 (83) 100 12/02/19 08:50 87 13 100 55 12/02/19 08:00 83 16 131/53 (79) 100 12/02/19 08:00 83 12/02/19 08:00 98.8 83 16 131/53 (79) 100 12/02/19 08:00 55 12/02/19 07:10 100 Bi-Pap 75 12/02/19 07:10 82 15 100 65 12/02/19 07:10 65 12/02/19 07:00 83 18 139/55 (83) 100 12/02/19 06:00 79 18 134/53 (80) 100 12/02/19 06:00 134/53 12/02/19 05:24 88 22 100 90 12/02/19 05:00 83 19 149/64 (92) 100 12/02/19 04:30 151/60 12/02/19 04:00 98.6 85 13 151/60 (90) 100 12/02/19 04:00 Bi-pap Bi-pap Bi-pap 12/02/19 04:00 75 12/02/19 03:12 87 12/02/19 03:00 85 16 154/60 (91) 100 12/02/19 02:55 81 23 100 90 12/02/19 02:00 83 18 139/52 (81) 100 12/02/19 01:00 85 16 145/56 (85) 100 12/02/19 00:54 84 22 100 100 12/02/19 00:47 88 12/02/19 00:00 Bi-pap Bi-pap Bi-pap 12/02/19 00:00 132/65 12/02/19 00:00 99.2 87 19 129/51 (77) 100 12/02/19 00:00 75 12/01/19 23:29 85 23 100 100 12/01/19 23:00 85 19 143/50 (81) 100 12/01/19 22:15 85 20 177/66 (103) 100 12/01/19 22:00 86 19 171/65 (100) 100 12/01/19 21:00 86 16 168/62 (97) 100 12/01/19 20:24 87 170/64 12/01/19 20:00 Bi-pap Bi-pap Bi-pap 12/01/19 20:00 60 12/01/19 20:00 98.9 89 26 180/78 (112) 100 12/01/19 20:00 69 12/01/19 19:16 84 18 100 100 12/01/19 19:16 100 Bi-Pap 60 12/01/19 19:00 92 16 163/71 (101) 100 12/01/19 18:00 159/74 12/01/19 18:00 159/74 12/01/19 18:00 85 14 159/74 (102) 100 12/01/19 17:00 85 17 169/70 (103) 100 12/01/19 16:49 85 16 100 100 12/01/19 16:00 Bi-pap Bi-pap Bi-pap 12/01/19 16:00 84 12/01/19 16:00 60 12/01/19 16:00 98.8 85 21 154/70 (98) 100 12/01/19 15:00 87 15 100 60 12/01/19 15:00 78 18 124/51 (75) 100 12/01/19 14:00 81 17 118/56 (76) 100 12/01/19 13:24 87 14 100 60 12/01/19 13:00 84 17 132/46 (74) 100 12/01/19 12:00 87 12/01/19 12:00 97.8 82 13 141/62 (88) 100 12/01/19 12:00 60 12/01/19 12:00 Bi-pap Bi-pap Bi-pap Status: awake Condition: critical HEENT: atraumatic Lungs: rales, rhonchi Heart: HR/BP stable Abdomen: soft Micro: Microbiology Date/Time Source Procedure Growth Status 11/29/19 13:20 Blood Blood Culture - Preliminary NO GROWTH AFTER 48 HOURS Resulted 11/29/19 13:20 Blood Blood Culture - Final Staph Hominis Ssp Hominis Complete Accucheck: 118 Critical Care - Subjective ROS Limited/Unobtainable: Yes Condition: critical EKG Rhythm: Sinus Rhythm FI02: 45 Vent Support Breath Rate: 12 Vent Support Mode: BiLevel Vent Tidal Volume: 600 Sputum Amount: None PEEP: 5.0 PIP: 14 Tube Feeding Amount: 0 I&O: Intake and Output 12/01/19 12/02/19 19:00 07:00 Intake Total 100 ml 3530 ml Output Total 155 ml 3635 ml Balance -55 ml -105 ml Intake Free Water 80 ml Hemodialysis 3500 ml Other 20 ml 30 ml Output Urine Total 155 ml 135 ml Hemodialysis UF 3500 ml ET-Tube: 7.5 ET Position: 24 Labs: Laboratory Tests Test 12/02/19 04:50 White Blood Count 13.9 K/UL (4.8-10.8) H Red Blood Count 2.76 M/UL (4.70-6.10) L Hemoglobin 7.9 G/DL (14.2-18.0) L Hematocrit 23.7 % (42.0-52.0) L Mean Corpuscular Volume 86 FL (80-99) Mean Corpuscular Hemoglobin 28.7 PG (27.0-31.0) Mean Corpuscular Hemoglobin Concent 33.5 G/DL (32.0-36.0) Red Cell Distribution Width 14.0 % (11.6-14.8) Platelet Count 210 K/UL (150-450) Mean Platelet Volume 5.0 FL (6.5-10.1) L Neutrophils (%) (Auto) % (45.0-75.0) Lymphocytes (%) (Auto) % (20.0-45.0) Monocytes (%) (Auto) % (1.0-10.0) Eosinophils (%) (Auto) % (0.0-3.0) Basophils (%) (Auto) % (0.0-2.0) Prothrombin Time 12.6 SEC (9.30-11.50) H Prothromb Time International Ratio 1.2 (0.9-1.1) H Activated Partial Thromboplast Time 39 SEC (23-33) H Sodium Level 147 MMOL/L (136-145) H Potassium Level 3.3 MMOL/L (3.5-5.1) L Chloride Level 105 MMOL/L (98-107) Carbon Dioxide Level 26 MMOL/L (21-32) Anion Gap 16 mmol/L (5-15) H Blood Urea Nitrogen 42 mg/dL (7-18) H Creatinine 3.8 MG/DL (0.55-1.30) H Estimat Glomerular Filtration Rate 19.9 mL/min (>60) Glucose Level 118 MG/DL (74-106) H Calcium Level 9.3 MG/DL (8.5-10.1) Phosphorus Level 3.9 MG/DL (2.5-4.9) Magnesium Level 2.1 MG/DL (1.8-2.4) Total Bilirubin 0.7 MG/DL (0.2-1.0) Aspartate Amino Transf (AST/SGOT) 41 U/L (15-37) H Alanine Aminotransferase (ALT/SGPT) 38 U/L (12-78) Alkaline Phosphatase 104 U/L (46-116) Total Protein 6.5 G/DL (6.4-8.2) Albumin 1.6 G/DL (3.4-5.0) L Globulin 4.9 g/dL Albumin/Globulin Ratio 0.3 (1.0-2.7) L Brandy Milton MD Dec 02, 2019 11:58
--- NOTE | 2019-12-02 12:09 | NUR ---
RESPIRATORY NOTE: Per dr. Milton's order, took pt off Bipap and place on 10L VM 45%FiO2. Pt is tolerating well, no SOB or resp distress noted. No ABG order. YUKI Jasso aware. Will continue to monitor.
[2019-12-02] MEDS: Meropenem 500 MG in NS 55 ML IVPB SCH (12:58)
--- NOTE | 2019-12-02 13:44 | Cardiology Progress Note ---
Assessment/Plan Assessment/Plan 1. Respiratory failure, probably pneumonia. 2. chf acute systolic 3. History of aortic valve replacement per records but no surgical scar on the chest wall.(pt denies avr) 4. History of coronary artery disease, unknown details. 5. Abnormal cardiac enzymes likely secondary to demand 6. septic shock 7. renal failure 8. metabolic respiratory acidosis 9. ARDS better off bipap jsut now feel comfortable abx hhn observe dialysis Objective Last 24 Hour Vital Signs Date Time Temp Pulse Resp B/P (MAP) Pulse Ox O2 Delivery O2 Flow Rate FiO2 12/02/19 13:00 8.0 40 12/02/19 13:00 84 16 129/53 (78) 100 12/02/19 12:57 128/51 12/02/19 12:09 83 20 100 12/02/19 12:00 85 12/02/19 12:00 Venturi Mask 10.0 Venturi Mask 10.0 Venturi Mask 10.0 Venturi Mask 10.0 12/02/19 12:00 10.0 45 12/02/19 12:00 98.0 80 34 128/51 (76) 100 12/02/19 11:00 71 17 124/52 (76) 100 12/02/19 10:48 81 12 100 45 12/02/19 10:00 84 14 126/53 (77) 100 12/02/19 10:00 45 12/02/19 09:17 138/56 12/02/19 09:17 75 138/56 12/02/19 09:00 87 13 138/56 (83) 100 12/02/19 08:50 87 13 100 55 12/02/19 08:00 83 16 131/53 (79) 100 12/02/19 08:00 83 12/02/19 08:00 98.8 83 16 131/53 (79) 100 12/02/19 08:00 Bi-pap Bi-pap Bi-pap Bi-pap 12/02/19 08:00 55 12/02/19 07:10 100 Bi-Pap 75 12/02/19 07:10 82 15 100 65 12/02/19 07:10 65 12/02/19 07:00 83 18 139/55 (83) 100 12/02/19 06:00 79 18 134/53 (80) 100 12/02/19 06:00 134/53 12/02/19 05:24 88 22 100 90 12/02/19 05:00 83 19 149/64 (92) 100 12/02/19 04:30 151/60 12/02/19 04:00 98.6 85 13 151/60 (90) 100 12/02/19 04:00 Bi-pap Bi-pap Bi-pap 12/02/19 04:00 75 12/02/19 03:12 87 12/02/19 03:00 85 16 154/60 (91) 100 12/02/19 02:55 81 23 100 90 12/02/19 02:00 83 18 139/52 (81) 100 12/02/19 01:00 85 16 145/56 (85) 100 12/02/19 00:54 84 22 100 100 12/02/19 00:47 88 12/02/19 00:00 Bi-pap Bi-pap Bi-pap 12/02/19 00:00 132/65 12/02/19 00:00 99.2 87 19 129/51 (77) 100 12/02/19 00:00 75 12/01/19 23:29 85 23 100 100 12/01/19 23:00 85 19 143/50 (81) 100 12/01/19 22:15 85 20 177/66 (103) 100 12/01/19 22:00 86 19 171/65 (100) 100 12/01/19 21:00 86 16 168/62 (97) 100 12/01/19 20:24 87 170/64 12/01/19 20:00 Bi-pap Bi-pap Bi-pap 12/01/19 20:00 60 12/01/19 20:00 98.9 89 26 180/78 (112) 100 12/01/19 20:00 69 12/01/19 19:16 84 18 100 100 12/01/19 19:16 100 Bi-Pap 60 12/01/19 19:00 92 16 163/71 (101) 100 12/01/19 18:00 159/74 12/01/19 18:00 159/74 12/01/19 18:00 85 14 159/74 (102) 100 12/01/19 17:00 85 17 169/70 (103) 100 12/01/19 16:49 85 16 100 100 12/01/19 16:00 Bi-pap Bi-pap Bi-pap 12/01/19 16:00 84 12/01/19 16:00 60 12/01/19 16:00 98.8 85 21 154/70 (98) 100 12/01/19 15:00 87 15 100 60 12/01/19 15:00 78 18 124/51 (75) 100 12/01/19 14:00 81 17 118/56 (76) 100 Intake and Output 12/01/19 12/02/19 19:00 07:00 Intake Total 100 ml 3530 ml Output Total 155 ml 3635 ml Balance -55 ml -105 ml Intake Free Water 80 ml Hemodialysis 3500 ml Other 20 ml 30 ml Output Urine Total 155 ml 135 ml Hemodialysis UF 3500 ml Laboratory Tests Test 12/02/19 04:50 White Blood Count 13.9 K/UL (4.8-10.8) H Red Blood Count 2.76 M/UL (4.70-6.10) L Hemoglobin 7.9 G/DL (14.2-18.0) L Hematocrit 23.7 % (42.0-52.0) L Mean Corpuscular Volume 86 FL (80-99) Mean Corpuscular Hemoglobin 28.7 PG (27.0-31.0) Mean Corpuscular Hemoglobin Concent 33.5 G/DL (32.0-36.0) Red Cell Distribution Width 14.0 % (11.6-14.8) Platelet Count 210 K/UL (150-450) Mean Platelet Volume 5.0 FL (6.5-10.1) L Neutrophils (%) (Auto) % (45.0-75.0) Lymphocytes (%) (Auto) % (20.0-45.0) Monocytes (%) (Auto) % (1.0-10.0) Eosinophils (%) (Auto) % (0.0-3.0) Basophils (%) (Auto) % (0.0-2.0) Prothrombin Time 12.6 SEC (9.30-11.50) H Prothromb Time International Ratio 1.2 (0.9-1.1) H Activated Partial Thromboplast Time 39 SEC (23-33) H Sodium Level 147 MMOL/L (136-145) H Potassium Level 3.3 MMOL/L (3.5-5.1) L Chloride Level 105 MMOL/L (98-107) Carbon Dioxide Level 26 MMOL/L (21-32) Anion Gap 16 mmol/L (5-15) H Blood Urea Nitrogen 42 mg/dL (7-18) H Creatinine 3.8 MG/DL (0.55-1.30) H Estimat Glomerular Filtration Rate 19.9 mL/min (>60) Glucose Level 118 MG/DL (74-106) H Calcium Level 9.3 MG/DL (8.5-10.1) Phosphorus Level 3.9 MG/DL (2.5-4.9) Magnesium Level 2.1 MG/DL (1.8-2.4) Total Bilirubin 0.7 MG/DL (0.2-1.0) Aspartate Amino Transf (AST/SGOT) 41 U/L (15-37) H Alanine Aminotransferase (ALT/SGPT) 38 U/L (12-78) Alkaline Phosphatase 104 U/L (46-116) Total Protein 6.5 G/DL (6.4-8.2) Albumin 1.6 G/DL (3.4-5.0) L Globulin 4.9 g/dL Albumin/Globulin Ratio 0.3 (1.0-2.7) L Antonio Byrd MD Dec 02, 2019 13:44
--- NOTE | 2019-12-02 13:54 | NUR ---
RADIOLOGY DEPT., CHEST X-RAY DONE.-P.DYE
--- NOTE | 2019-12-02 14:00 | NUR ---
NURSE NOTES: Spoke with Dr Bennett over phone and received order to d/c RIJ TLC once peripheral IV access is attainable.
--- NOTE | 2019-12-02 14:20 | Surgery Progress Note ---
Surgery Progress Note Subjective Procedure Performed Right femoral temporary hemodialysis catheter insertion Symptoms: improved, passing flatus, pain decreased Objective Last 24 Hour Vital Signs Date Time Temp Pulse Resp B/P (MAP) Pulse Ox O2 Delivery O2 Flow Rate FiO2 12/02/19 13:54 129/53 12/02/19 13:00 8.0 40 12/02/19 13:00 84 16 129/53 (78) 100 12/02/19 12:57 128/51 12/02/19 12:09 83 20 100 12/02/19 12:00 85 12/02/19 12:00 Venturi Mask 10.0 Venturi Mask 10.0 Venturi Mask 10.0 Venturi Mask 10.0 12/02/19 12:00 10.0 45 12/02/19 12:00 98.0 80 34 128/51 (76) 100 12/02/19 11:00 71 17 124/52 (76) 100 12/02/19 10:48 81 12 100 45 12/02/19 10:00 84 14 126/53 (77) 100 12/02/19 10:00 45 12/02/19 09:17 138/56 12/02/19 09:17 75 138/56 12/02/19 09:00 87 13 138/56 (83) 100 12/02/19 08:50 87 13 100 55 12/02/19 08:00 83 16 131/53 (79) 100 12/02/19 08:00 83 12/02/19 08:00 98.8 83 16 131/53 (79) 100 12/02/19 08:00 Bi-pap Bi-pap Bi-pap Bi-pap 12/02/19 08:00 55 12/02/19 07:10 100 Bi-Pap 75 12/02/19 07:10 82 15 100 65 12/02/19 07:10 65 12/02/19 07:00 83 18 139/55 (83) 100 12/02/19 06:00 79 18 134/53 (80) 100 12/02/19 06:00 134/53 12/02/19 05:24 88 22 100 90 12/02/19 05:00 83 19 149/64 (92) 100 12/02/19 04:30 151/60 12/02/19 04:00 98.6 85 13 151/60 (90) 100 12/02/19 04:00 Bi-pap Bi-pap Bi-pap 12/02/19 04:00 75 12/02/19 03:12 87 12/02/19 03:00 85 16 154/60 (91) 100 12/02/19 02:55 81 23 100 90 12/02/19 02:00 83 18 139/52 (81) 100 12/02/19 01:00 85 16 145/56 (85) 100 12/02/19 00:54 84 22 100 100 12/02/19 00:47 88 12/02/19 00:00 Bi-pap Bi-pap Bi-pap 12/02/19 00:00 132/65 12/02/19 00:00 99.2 87 19 129/51 (77) 100 12/02/19 00:00 75 12/01/19 23:29 85 23 100 100 12/01/19 23:00 85 19 143/50 (81) 100 12/01/19 22:15 85 20 177/66 (103) 100 12/01/19 22:00 86 19 171/65 (100) 100 12/01/19 21:00 86 16 168/62 (97) 100 12/01/19 20:24 87 170/64 12/01/19 20:00 Bi-pap Bi-pap Bi-pap 12/01/19 20:00 60 12/01/19 20:00 98.9 89 26 180/78 (112) 100 12/01/19 20:00 69 12/01/19 19:16 84 18 100 100 12/01/19 19:16 100 Bi-Pap 60 12/01/19 19:00 92 16 163/71 (101) 100 12/01/19 18:00 159/74 12/01/19 18:00 159/74 12/01/19 18:00 85 14 159/74 (102) 100 12/01/19 17:00 85 17 169/70 (103) 100 12/01/19 16:49 85 16 100 100 12/01/19 16:00 Bi-pap Bi-pap Bi-pap 12/01/19 16:00 84 12/01/19 16:00 60 12/01/19 16:00 98.8 85 21 154/70 (98) 100 12/01/19 15:00 87 15 100 60 12/01/19 15:00 78 18 124/51 (75) 100 I&O Intake and Output 12/01/19 12/02/19 19:00 07:00 Intake Total 100 ml 3530 ml Output Total 155 ml 3635 ml Balance -55 ml -105 ml Intake Free Water 80 ml Hemodialysis 3500 ml Other 20 ml 30 ml Output Urine Total 155 ml 135 ml Hemodialysis UF 3500 ml Dressing: dry Wound: clean Cardiovascular: RSR Respiratory: clear Abdomen: soft, non-tender, present bowel sounds Extremities: no cyanosis, other Laboratory Tests Test 12/02/19 04:50 White Blood Count 13.9 K/UL (4.8-10.8) H Red Blood Count 2.76 M/UL (4.70-6.10) L Hemoglobin 7.9 G/DL (14.2-18.0) L Hematocrit 23.7 % (42.0-52.0) L Mean Corpuscular Volume 86 FL (80-99) Mean Corpuscular Hemoglobin 28.7 PG (27.0-31.0) Mean Corpuscular Hemoglobin Concent 33.5 G/DL (32.0-36.0) Red Cell Distribution Width 14.0 % (11.6-14.8) Platelet Count 210 K/UL (150-450) Mean Platelet Volume 5.0 FL (6.5-10.1) L Neutrophils (%) (Auto) % (45.0-75.0) Lymphocytes (%) (Auto) % (20.0-45.0) Monocytes (%) (Auto) % (1.0-10.0) Eosinophils (%) (Auto) % (0.0-3.0) Basophils (%) (Auto) % (0.0-2.0) Prothrombin Time 12.6 SEC (9.30-11.50) H Prothromb Time International Ratio 1.2 (0.9-1.1) H Activated Partial Thromboplast Time 39 SEC (23-33) H Sodium Level 147 MMOL/L (136-145) H Potassium Level 3.3 MMOL/L (3.5-5.1) L Chloride Level 105 MMOL/L (98-107) Carbon Dioxide Level 26 MMOL/L (21-32) Anion Gap 16 mmol/L (5-15) H Blood Urea Nitrogen 42 mg/dL (7-18) H Creatinine 3.8 MG/DL (0.55-1.30) H Estimat Glomerular Filtration Rate 19.9 mL/min (>60) Glucose Level 118 MG/DL (74-106) H Calcium Level 9.3 MG/DL (8.5-10.1) Phosphorus Level 3.9 MG/DL (2.5-4.9) Magnesium Level 2.1 MG/DL (1.8-2.4) Total Bilirubin 0.7 MG/DL (0.2-1.0) Aspartate Amino Transf (AST/SGOT) 41 U/L (15-37) H Alanine Aminotransferase (ALT/SGPT) 38 U/L (12-78) Alkaline Phosphatase 104 U/L (46-116) Total Protein 6.5 G/DL (6.4-8.2) Albumin 1.6 G/DL (3.4-5.0) L Globulin 4.9 g/dL Albumin/Globulin Ratio 0.3 (1.0-2.7) L Plan Problems: (1) Septic shock Assessment & Plan: Patient in septic shock prior central line and pressors intubated on vent support in the intensive care unit tachycardic. Renal insufficiency requiring hemodialysis. Temporary hemodialysis catheter indicated and recommended Please see procedure note Dialysis as per nephrology IV antibiotics post per infectious disease Dressing changes as per protocol We will monitor site for hematoma or infection No further acute surgical intervention recommended at this time will follow with recommendations thank you for let me participate patient's care extubated improved (2) Acute respiratory failure Assessment & Plan: DAILY ESTIMATED NEEDS: Needs based on Critical care, sepsis 75kg adj 22-28 kcals/kg [id number] total kcals 1.2-2 g protein/kg 90-150 g total protein 25-30 mL/kg 2790-3704 total fluid mLs NUTRITION DIAGNOSIS: Swallowing difficulty r/t resp status as evidenced by septic shock now s/p intubation, w/ NGT, NPO at this time. ENTERAL NUTRITION RECOMMENDATIONS: Nepro @40ml/hr x24 hrs + Prosource BID to provide 960ml, 78g + 22 g pro, 698ml free H2O - As medically appropriate, rec non oral feeds via NGT - Start Nepro @20ml/hr for 6 hrs. Advance as tolerated 10ml/hr q4-6 hrs to goal. - Add Prosource BID to better meet est pro needs - Flush per MD. 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
--- NOTE | 2019-12-02 14:46 | Nephrology Progress Note ---
Assessment/Plan Problem List: (1) ARF (acute renal failure) (2) Acute respiratory failure (3) Septic shock (4) Anemia (5) History of hypertension (6) Diabetes mellitus (7) Acute on chronic systolic heart failure Assessment: ej Fx 40 Assessment Acute renal failure- ? Underlying CKD Respiratory failure Anemia Sepsis / Shock ? 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 DC IV previously DC Hydrocortisone Antibiotics urine studies avoid nephrotoxics monitor renal parameters Anemia hairston per orders Subjective ROS Limited/Unobtainable: Yes Objective Objective Last 24 Hour Vital Signs Date Time Temp Pulse Resp B/P (MAP) Pulse Ox O2 Delivery O2 Flow Rate FiO2 12/02/19 13:54 129/53 12/02/19 13:00 8.0 40 12/02/19 13:00 84 16 129/53 (78) 100 12/02/19 12:57 128/51 12/02/19 12:09 83 20 100 12/02/19 12:00 85 12/02/19 12:00 Venturi Mask 10.0 Venturi Mask 10.0 Venturi Mask 10.0 Venturi Mask 10.0 12/02/19 12:00 10.0 45 12/02/19 12:00 98.0 80 34 128/51 (76) 100 12/02/19 11:00 71 17 124/52 (76) 100 12/02/19 10:48 81 12 100 45 12/02/19 10:00 84 14 126/53 (77) 100 12/02/19 10:00 45 12/02/19 09:17 138/56 12/02/19 09:17 75 138/56 12/02/19 09:00 87 13 138/56 (83) 100 12/02/19 08:50 87 13 100 55 12/02/19 08:00 83 16 131/53 (79) 100 12/02/19 08:00 83 12/02/19 08:00 98.8 83 16 131/53 (79) 100 12/02/19 08:00 Bi-pap Bi-pap Bi-pap Bi-pap 12/02/19 08:00 55 12/02/19 07:10 100 Bi-Pap 75 12/02/19 07:10 82 15 100 65 12/02/19 07:10 65 12/02/19 07:00 83 18 139/55 (83) 100 12/02/19 06:00 79 18 134/53 (80) 100 12/02/19 06:00 134/53 12/02/19 05:24 88 22 100 90 12/02/19 05:00 83 19 149/64 (92) 100 12/02/19 04:30 151/60 12/02/19 04:00 98.6 85 13 151/60 (90) 100 12/02/19 04:00 Bi-pap Bi-pap Bi-pap 12/02/19 04:00 75 12/02/19 03:12 87 12/02/19 03:00 85 16 154/60 (91) 100 12/02/19 02:55 81 23 100 90 12/02/19 02:00 83 18 139/52 (81) 100 12/02/19 01:00 85 16 145/56 (85) 100 12/02/19 00:54 84 22 100 100 12/02/19 00:47 88 12/02/19 00:00 Bi-pap Bi-pap Bi-pap 12/02/19 00:00 132/65 12/02/19 00:00 99.2 87 19 129/51 (77) 100 12/02/19 00:00 75 12/01/19 23:29 85 23 100 100 12/01/19 23:00 85 19 143/50 (81) 100 12/01/19 22:15 85 20 177/66 (103) 100 12/01/19 22:00 86 19 171/65 (100) 100 12/01/19 21:00 86 16 168/62 (97) 100 12/01/19 20:24 87 170/64 12/01/19 20:00 Bi-pap Bi-pap Bi-pap 12/01/19 20:00 60 12/01/19 20:00 98.9 89 26 180/78 (112) 100 12/01/19 20:00 69 12/01/19 19:16 84 18 100 100 12/01/19 19:16 100 Bi-Pap 60 12/01/19 19:00 92 16 163/71 (101) 100 12/01/19 18:00 159/74 12/01/19 18:00 159/74 12/01/19 18:00 85 14 159/74 (102) 100 12/01/19 17:00 85 17 169/70 (103) 100 12/01/19 16:49 85 16 100 100 12/01/19 16:00 Bi-pap Bi-pap Bi-pap 12/01/19 16:00 84 12/01/19 16:00 60 12/01/19 16:00 98.8 85 21 154/70 (98) 100 12/01/19 15:00 87 15 100 60 12/01/19 15:00 78 18 124/51 (75) 100 Intake and Output 12/01/19 12/02/19 19:00 07:00 Intake Total 100 ml 3530 ml Output Total 155 ml 3635 ml Balance -55 ml -105 ml Intake Free Water 80 ml Hemodialysis 3500 ml Other 20 ml 30 ml Output Urine Total 155 ml 135 ml Hemodialysis UF 3500 ml Laboratory Tests 12/02/19 04:50: White Blood Count 13.9H, Red Blood Count 2.76L, Hemoglobin 7.9L, Hematocrit 23.7L, Mean Corpuscular Volume 86, Mean Corpuscular Hemoglobin 28.7, Mean Corpuscular Hemoglobin Concent 33.5, Red Cell Distribution Width 14.0, Platelet Count 210, Mean Platelet Volume 5.0L, Neutrophils (%) (Auto) , Lymphocytes (%) ( Auto) , Monocytes (%) (Auto) , Eosinophils (%) (Auto) , Basophils (%) (Auto) , Prothrombin Time 12.6H, Prothromb Time International Ratio 1.2H, Activated Partial Thromboplast Time 39H, Sodium Level 147H, Potassium Level 3.3L, Chloride Level 105, Carbon Dioxide Level 26, Anion Gap 16H, Blood Urea Nitrogen 42H, Creatinine 3.8H, Estimat Glomerular Filtration Rate 19.9, Glucose Level 118H, Calcium Level 9.3, Phosphorus Level 3.9, Magnesium Level 2.1, Total Bilirubin 0.7, Aspartate Amino Transf (AST/SGOT) 41H, Alanine Aminotransferase ( ALT/SGPT) 38, Alkaline Phosphatase 104, Total Protein 6.5, Albumin 1.6L, Globulin 4.9, Albumin/Globulin Ratio 0.3L Height (Feet): 5 Height (Inches): 8.00 Weight (Pounds): 246 General Appearance: mild distress EENT: other - BIPAP Cardiovascular: normal rate Respiratory/Chest: decreased breath sounds Abdomen: distended Tej Sidhu MD Dec 02, 2019 14:46
--- NOTE | 2019-12-02 15:39 | NUR ---
CASE MANAGEMENT: REVIEW 12/02/2019 SI:A/C RESP FAILURE W/ HYPOXIA T 98 HR 80 RR 34 B/P 128/51 SATS 100% ON 10L/VENTURI FIO2 45 LABS: WBC 13.9 HGB 7.9 HCT 23.7 NA 147 K 3.3 BUN 42 CR 3.8 GLU 118 IS:HYDRALAZINE GT Q6H COREG NG Q12H PREVACID NG BID INSULIN SUBQ AC/HS FENTANYL PER PARAMETERS LEVOPHED PER PARAMETERS MEROPENEM IV Q24H ICU PLAN OF CARE: TUNNEL CATH PLCT HD 11/30 ( 4th in a row), next 12/02 transfused plan to change line to tunneled HD line thursday
--- NOTE | 2019-12-02 15:45 | Diagnostic Imaging Report ---
Indication: Dyspnea, SOB Technique: One view of the chest Comparison: 12/01/2019 Findings: Interim slight improvement of bilateral interstitial and airspace opacities, with in particular decreased air space component bilaterally. Pleural spaces remain clear. Right jugular central venous catheter, gastric tube remain. The heart remains upper limits normal in size Impression: Slightly improved but persistent parenchymal disease as described, over one day
--- NOTE | 2019-12-02 15:46 | NUR ---
INSURANCE REVIEW FAXED TO [facility] DEPT [phone] AUTH# [id number] NCM: JARRED GONSALVES FAX ALL CLINICALS TO: [phone]
--- NOTE | 2019-12-02 16:46 | NUR ---
NURSE NOTES: RIJ TLC removed. Pressure held at site for 10 min, no bleeding observed.
--- NOTE | 2019-12-02 19:15 | NUR ---
HAND-OFF: Report given to YUKI Mehta. Pt in no acute distress.
--- NOTE | 2019-12-02 19:31 | Internal Med Progress Note ---
Subjective Date of Service: Dec 02, 2019 Physician Name Sidney Galaviz Attending Physician Cezar Ceja MD Current Medications Medications (Trade) Dose Ordered Sig/Valeriano Route PRN Reason Start Time Stop Time Status Last Admin Dose Admin Acetaminophen (Tylenol) 650 mg Q4H PRN NG Mild Pain/Temp > 100.5 11/29/19 08:00 12/29/19 07:59 11/30/19 17:37 Albuterol/ Ipratropium (Albuterol/ Ipratropium) 3 ml Q4H PRN HHN Shortness of Breath 11/29/19 15:15 12/04/19 15:14 11/30/19 19:19 Amlodipine Besylate (Norvasc) 2.5 mg DAILYPRN PRN ORAL sbp greater than 150 12/01/19 21:30 12/31/19 21:29 Carvedilol (Coreg) 12.5 mg EVERY 12 HOURS NG 11/30/19 21:00 12/28/19 20:59 12/02/19 09:17 Chlorhexidine Gluconate (Katia-Hex 2%) 1 applic DAILY@2000 TOPIC 11/25/19 20:00 12/25/19 19:59 12/01/19 20:24 Dextrose (Dextrose 50%) 25 ml Q30M PRN IV Hypoglycemia 11/24/19 13:30 12/24/19 13:29 Dextrose (Dextrose 50%) 50 ml Q30M PRN IV Hypoglycemia 11/24/19 13:30 12/24/19 13:29 Folic Acid (Folate) 5 mg DAILY GT 11/27/19 09:00 12/27/19 08:59 12/02/19 09:16 Heparin Sodium (Porcine) (Heparin 5000 units/ml) 5,000 units EVERY 12 HOURS SUBQ 11/24/19 21:00 12/24/19 20:59 12/02/19 09:18 Hydralazine HCl (Apresoline) 50 mg EVERY 6 HOURS GT 12/02/19 00:00 01/01/20 00:00 12/02/19 17:26 Insulin Aspart (NovoLOG) BEFORE MEALS AND HS SUBQ 11/24/19 16:30 12/24/19 16:29 11/29/19 05:57 Isosorbide Dinitrate (Isordil) 20 mg TID ORAL 12/02/19 09:00 01/01/20 08:59 12/02/19 17:27 Lansoprazole (Prevacid) 30 mg BID NG 11/30/19 18:00 12/30/19 17:59 12/02/19 17:27 Meropenem 500 mg/ Sodium Chloride 55 ml @ 110 mls/hr Q24H IVPB 11/30/19 12:00 12/05/19 11:59 12/02/19 12:58 Morphine Sulfate (Morphine Sulfate) 2 mg Q4H PRN IVP Severe Pain (Pain Scale 7-10) 11/29/19 13:15 12/06/19 13:14 11/29/19 13:28 Nitroglycerin (Ntg) 0.4 mg Q5M PRN SL Prn Chest Pain 11/24/19 09:30 12/24/19 09:29 11/24/19 09:23 Norepinephrine Bitartrate 8 mg/ Dextrose 500 ml @ 0 mls/hr Q24H IV 11/25/19 04:30 12/25/19 04:29 11/25/19 04:54 Ondansetron HCl (Zofran) 4 mg Q6H PRN IVP Nausea & Vomiting 11/24/19 13:30 12/24/19 13:29 Polyethylene Glycol (Miralax) 17 gm DAILYPRN PRN ORAL Constipation 11/24/19 13:30 12/24/19 13:29 Promethazine HCl/ Codeine (Phenergan with Codeine) 5 ml Q4H PRN ORAL For Cough 11/24/19 13:30 12/24/19 13:29 Allergies: Coded Allergies: No Known Allergies (Unverified , 11/24/19) ROS Limited/Unobtainable: Yes Subjective 59 YO M admitted with respiratory failure. Cover for Int Qamar-Dr Ceja. ICU. Objective Last Vital Signs Date Time Temp Pulse Resp B/P (MAP) Pulse Ox O2 Delivery O2 Flow Rate FiO2 12/02/19 19:00 81 19 119/42 (67) 98 12/02/19 16:00 98.7 12/02/19 16:00 Venturi Mask 8.0 Venturi Mask 8.0 Venturi Mask 8.0 Venturi Mask 8.0 12/02/19 13:00 40 Laboratory Tests Test 12/02/19 04:50 White Blood Count 13.9 K/UL (4.8-10.8) H Red Blood Count 2.76 M/UL (4.70-6.10) L Hemoglobin 7.9 G/DL (14.2-18.0) L Hematocrit 23.7 % (42.0-52.0) L Mean Corpuscular Volume 86 FL (80-99) Mean Corpuscular Hemoglobin 28.7 PG (27.0-31.0) Mean Corpuscular Hemoglobin Concent 33.5 G/DL (32.0-36.0) Red Cell Distribution Width 14.0 % (11.6-14.8) Platelet Count 210 K/UL (150-450) Mean Platelet Volume 5.0 FL (6.5-10.1) L Neutrophils (%) (Auto) % (45.0-75.0) Lymphocytes (%) (Auto) % (20.0-45.0) Monocytes (%) (Auto) % (1.0-10.0) Eosinophils (%) (Auto) % (0.0-3.0) Basophils (%) (Auto) % (0.0-2.0) Prothrombin Time 12.6 SEC (9.30-11.50) H Prothromb Time International Ratio 1.2 (0.9-1.1) H Activated Partial Thromboplast Time 39 SEC (23-33) H Sodium Level 147 MMOL/L (136-145) H Potassium Level 3.3 MMOL/L (3.5-5.1) L Chloride Level 105 MMOL/L (98-107) Carbon Dioxide Level 26 MMOL/L (21-32) Anion Gap 16 mmol/L (5-15) H Blood Urea Nitrogen 42 mg/dL (7-18) H Creatinine 3.8 MG/DL (0.55-1.30) H Estimat Glomerular Filtration Rate 19.9 mL/min (>60) Glucose Level 118 MG/DL (74-106) H Calcium Level 9.3 MG/DL (8.5-10.1) Phosphorus Level 3.9 MG/DL (2.5-4.9) Magnesium Level 2.1 MG/DL (1.8-2.4) Total Bilirubin 0.7 MG/DL (0.2-1.0) Aspartate Amino Transf (AST/SGOT) 41 U/L (15-37) H Alanine Aminotransferase (ALT/SGPT) 38 U/L (12-78) Alkaline Phosphatase 104 U/L (46-116) Total Protein 6.5 G/DL (6.4-8.2) Albumin 1.6 G/DL (3.4-5.0) L Globulin 4.9 g/dL Albumin/Globulin Ratio 0.3 (1.0-2.7) L Intake and Output 12/01/19 12/02/19 19:00 07:00 Intake Total 100 ml 3530 ml Output Total 155 ml 3635 ml Balance -55 ml -105 ml Intake Free Water 80 ml Hemodialysis 3500 ml Other 20 ml 30 ml Output Urine Total 155 ml 135 ml Hemodialysis UF 3500 ml Objective PHYSICAL EXAMINATION: GENERAL: The patient is a well-developed and well-nourished male, in moderate respiratory distress. HEENT: Eyes, pupils are equal and responsive to light and accommodation. Extraocular movements are intact. NECK: Supple without lymphadenopathy. CHEST: venturi mask; Mechanical breath sounds, otherwise without wheezes or rales. CARDIOVASCULAR: Regular rate. S1 and S2 normal without murmurs, rubs, or gallops. ABDOMEN: Soft, nontender, and nondistended. Positive bowel sounds. No evidence of hepatosplenomegaly. Currently, no rebound or guarding noted. EXTREMITIES: Negative for clubbing, cyanosis, or edema. RECTAL/GENITAL: Refused. NEUROLOGIC: Cranial nerves II through XII are grossly intact without focal deficits. Assessment/Plan Assessment/Plan ASSESSMENT: This is a 59-year-old male. 1. Respiratory failure. 2. Pneumonia. 3. Probable sepsis. 4. Diabetes type 2. 5. Hypertension. 6. Hypercholesterolemia. TREATMENT: 1. Respiratory failure/pneumonia. The patient is currently on venturi mask in the intensive care unit. A Pulmonary consultation has been obtained with Dr. Brandy Milton. ABX=vancomycin, Levaquin and cefepime to cover healthcare-associated pneumonia. Continue Tamiflu per ID=Dr Andrade. We will follow recommendations of Pulmonary. Sputum cultures are pending at this time. 2. Probable sepsis. Blood cultures are pending. As above, the patient has been placed empirically on vancomycin and cefepime. 3. Diabetes type 2. A NovoLog sliding scale has been instituted. 4. Hypertension. The patient is currently hypotensive. Hold antihypertensive medication. 5. Hypercholesterolemia. Continue atorvastatin as above. Sidney Galaviz MD Dec 02, 2019 19:31
[2019-12-02] MEDS: Dyna-Hex 2% Top Sol 2oz TOPIC SCH (19:41)
--- NOTE | 2019-12-02 19:56 | NUR ---
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
--- NOTE | 2019-12-02 21:50 | NUR ---
NURSE NOTES: PT'S FIANCE STAYED AT BED SIDE THAT EDUCATED ESBL SPUTUM CONTACT ISOLATION AND PPE, WAS AWARE.
[2019-12-03] VITALS (21 sets, daily range): BP systolic 104–136; BP diastolic 40–57
--- NOTE | 2019-12-03 00:04 | NUR ---
NURSE NOTES: PATIENT CONFUSED TO TIME AND SITUATION,THAT GIVEN REORIENTATION, NEEDS REINFORCEMENT, DENIED PAIN OR SOB AT THIS TIME, WILL CONTINUE TO MONITOR.
--- NOTE | 2019-12-03 02:15 | NUR ---
NURSE NOTES: PATIENT ASLEEP STATUS, VSS, WILL CONTINUE PLAN OF CARE.
[2019-12-03] MEDS: Morphine Sulfate 2mg/ml Inj(IV/IM USE ONLY) IVP PRN (04:12)
--- NOTE | 2019-12-03 04:12 | NUR ---
NURSE NOTES: GIVEN MORPHINE 2MG BY IVP SLOWLY VIA PPL FOR BACK PAIN OF 7/10 PRN ORDER, WILL CONTINUE TO MONITOR.
--- NOTE | 2019-12-03 04:53 | NUR ---
NURSE NOTES: PATIENT CONFUSED TO SITUATION, COMPLAINED SOB, O2 SATURATION 98% NOTED ON FIO2 40% VENTURI MASK, CALLED RT THAT CHANGED TO BIPAP I/E 25/04, FIO2 40%, O2 SATURATION 100% NOTED AT THIS TIME, WILL CONTINUE TO MONITOR.
--- NOTE | 2019-12-03 06:04 | Pulmonolgy Critical Care Note ---
Critical Care - Asmt/Plan Assessment/Plan: Pulmonary CCM Progress Note Critical Care - Asmt/Plan Problems: (1) Acute respiratory failure - improved (2) Septic shock (3) HCAP (healthcare-associated pneumonia) (4) Chronic systolic heart failure (5) Chronic kidney disease, stage 3 (6) Diabetes mellitus (7) History of hypertension (8) History of gout (9) History of left below knee amputation Respiratory: monitor respiratory rate, adjust FIO2, BiPAP PRN, CXR PRN Cardiac: continue to monitor HR/BP Gastrointestinal: continue feedings/current rate Endocrine: monitor blood sugar, continue sliding scale insulin Hematologic: monitor H/H, transfuse if hgb<8.5 Neurologic: PRN Morphine, keep patient comfortable Affect: PRN ativan Prophylaxis: Protonix Disposition: Tele Time Spent (Minutes): 40 Notes Reviewed: mechatronics technician, cardio, renal Critical Care - Objective Vital Signs Noted Status: awake, interactive Condition: improving HEENT: atraumatic Lungs: CTAB Heart: HR/BP stable Abdomen: soft Extrem: edema improving Microbiology Date/Time Source Procedure Growth Status 11/29/19 13:20 Blood Blood Culture - Preliminary NO GROWTH AFTER 48 HOURS Resulted 11/29/19 13:20 Blood Blood Culture - Final Staph Hominis Ssp Hominis Complete Accucheck: 118 Critical Care - Subjective ROS Limited/Unobtainable: no Condition: improvingl EKG Rhythm: Sinus Rhythm FI02: NC Laboratory Tests Test 12/02/19 04:50 White Blood Count 13.9 K/UL (4.8-10.8) H Red Blood Count 2.76 M/UL (4.70-6.10) L Hemoglobin 7.9 G/DL (14.2-18.0) L Hematocrit 23.7 % (42.0-52.0) L Mean Corpuscular Volume 86 FL (80-99) Mean Corpuscular Hemoglobin 28.7 PG (27.0-31.0) Mean Corpuscular Hemoglobin Concent 33.5 G/DL (32.0-36.0) Red Cell Distribution Width 14.0 % (11.6-14.8) Platelet Count 210 K/UL (150-450) Mean Platelet Volume 5.0 FL (6.5-10.1) L Neutrophils (%) (Auto) % (45.0-75.0) Lymphocytes (%) (Auto) % (20.0-45.0) Monocytes (%) (Auto) % (1.0-10.0) Eosinophils (%) (Auto) % (0.0-3.0) Basophils (%) (Auto) % (0.0-2.0) Prothrombin Time 12.6 SEC (9.30-11.50) H Prothromb Time International Ratio 1.2 (0.9-1.1) H Activated Partial Thromboplast Time 39 SEC (23-33) H Sodium Level 147 MMOL/L (136-145) H Potassium Level 3.3 MMOL/L (3.5-5.1) L Chloride Level 105 MMOL/L (98-107) Carbon Dioxide Level 26 MMOL/L (21-32) Anion Gap 16 mmol/L (5-15) H Blood Urea Nitrogen 42 mg/dL (7-18) H Creatinine 3.8 MG/DL (0.55-1.30) H Estimat Glomerular Filtration Rate 19.9 mL/min (>60) Glucose Level 118 MG/DL (74-106) H Calcium Level 9.3 MG/DL (8.5-10.1) Phosphorus Level 3.9 MG/DL (2.5-4.9) Magnesium Level 2.1 MG/DL (1.8-2.4) Total Bilirubin 0.7 MG/DL (0.2-1.0) Aspartate Amino Transf (AST/SGOT) 41 U/L (15-37) H Alanine Aminotransferase (ALT/SGPT) 38 U/L (12-78) Alkaline Phosphatase 104 U/L (46-116) Total Protein 6.5 G/DL (6.4-8.2) Albumin 1.6 G/DL (3.4-5.0) L Globulin 4.9 g/dL Albumin/Globulin Ratio 0.3 (1.0-2.7) L Critical Care - Objective Last 24 Hour Vital Signs Date Time Temp Pulse Resp B/P (MAP) Pulse Ox O2 Delivery O2 Flow Rate FiO2 12/03/19 04:54 90 15 100 40 12/03/19 04:53 40 12/03/19 04:30 128/49 12/03/19 04:00 99.2 93 20 128/49 (75) 95 12/03/19 04:00 8.0 40 2/22/20 04:00 Venturi Mask 8.0 Venturi Mask 8.0 Venturi Mask 8.0 Venturi Mask 8.0 12/03/19 03:00 91 22 123/50 (74) 92 12/03/19 02:00 94 23 127/51 (76) 94 12/03/19 01:00 97 22 130/52 (78) 91 12/03/19 00:00 Venturi Mask 8.0 Venturi Mask 8.0 Venturi Mask 8.0 Venturi Mask 8.0 12/03/19 00:00 8.0 40 12/03/19 00:00 99.2 91 23 127/54 (78) 98 12/02/19 23:49 124/49 12/02/19 23:03 87 12/02/19 23:00 88 21 124/49 (74) 98 12/02/19 22:00 87 19 124/49 (74) 96 12/02/19 21:00 91 22 128/46 (73) 98 12/02/19 20:55 92 124/48 12/02/19 20:00 8.0 40 12/02/19 20:00 99.0 90 18 124/48 (73) 100 12/02/19 20:00 Venturi Mask 8.0 Venturi Mask 8.0 Venturi Mask 8.0 Venturi Mask 8.0 12/02/19 19:24 99 Venturi Mask 8.0 40 12/02/19 19:12 93 12/02/19 19:00 81 19 119/42 (67) 98 12/02/19 18:00 96 20 124/43 (70) 99 12/02/19 17:27 122/43 12/02/19 17:26 122/43 12/02/19 17:00 89 16 122/43 (69) 99 12/02/19 16:00 78 12/02/19 16:00 98.7 89 13 121/42 (68) 100 12/02/19 16:00 Venturi Mask 8.0 Venturi Mask 8.0 Venturi Mask 8.0 Venturi Mask 8.0 12/02/19 15:00 88 12 128/44 (72) 100 12/02/19 14:00 87 27 125/46 (72) 100 2/21/20 13:54 129/53 12/02/19 13:00 8.0 40 12/02/19 13:00 84 16 129/53 (78) 100 12/02/19 12:57 128/51 12/02/19 12:09 83 20 100 12/02/19 12:00 85 12/02/19 12:00 Venturi Mask 10.0 Venturi Mask 10.0 Venturi Mask 10.0 Venturi Mask 10.0 12/02/19 12:00 10.0 45 12/02/19 12:00 98.0 80 34 128/51 (76) 100 12/02/19 11:00 71 17 124/52 (76) 100 12/02/19 10:48 81 12 100 45 12/02/19 10:00 84 14 126/53 (77) 100 12/02/19 10:00 45 12/02/19 09:17 138/56 12/02/19 09:17 75 138/56 12/02/19 09:00 87 13 138/56 (83) 100 12/02/19 08:50 87 13 100 55 12/02/19 08:00 83 16 131/53 (79) 100 12/02/19 08:00 83 12/02/19 08:00 98.8 83 16 131/53 (79) 100 12/02/19 08:00 Bi-pap Bi-pap Bi-pap Bi-pap 12/02/19 08:00 55 12/02/19 07:10 100 Bi-Pap 75 12/02/19 07:10 82 15 100 65 12/02/19 07:10 65 12/02/19 07:00 83 18 139/55 (83) 100 Accucheck: 127 Critical Care - Subjective ROS Limited/Unobtainable: No Condition: stable EKG Rhythm: Sinus Rhythm FI02: 40 Vent Support Breath Rate: 12 Vent Support Mode: BiLevel Vent Tidal Volume: 600 Sputum Amount: None PEEP: 5.0 PIP: 14 Tube Feeding Amount: 30 I&O: Intake and Output 12/02/19 12/03/19 19:00 07:00 Intake Total 175 ml 340 ml Output Total 175 ml 60 ml Balance 0 ml 280 ml Intake Free Water 30 ml IV Total 55 ml Tube Feeding 90 ml 260 ml Other 80 ml Output Urine Total 175 ml 60 ml # Bowel Movements 2 ET-Tube: 7.5 ET Position: 24 Balfe,Keshav MD Dec 03, 2019 06:04
[2019-12-03] MEDS: HydrALAZINE 50mg tab GT SCH ×3 (06:07→17:40)
[2019-12-03] MEDS: NovoLOG Insulin Flexpen SUBQ SCH ×4 (06:09→22:25)
--- NOTE | 2019-12-03 06:40 | NUR ---
NURSE NOTES: MORNING CARE WAS DONE AT 0520AM. HELD FEEDING DUE TO BIPAP PER PROTOCOLS, PATIENT WANTED ICE BAG, APPLIED TO LEFT SIDE LOWER BACK, WILL CONTINUE TO MONITOR.
--- NOTE | 2019-12-03 07:20 | NUR ---
HAND-OFF: Report given to YUKI TURCIOS.
--- NOTE | 2019-12-03 07:21 | NUR ---
NURSE NOTES: Pt received from YUKI Mehta. Pt is observed laying in bed, appears to be sleeping, opens eyes when called by name, follows commands, AAOx 2. Pt is SR on the hospital aides and assistants teacher, afebrile. Pt received on Bipap 15/7 FiO2 40%, O2Sat on monitor reads 98%. Right nares NGT noted and clamped, TF held at this time for Bipap use. Cruz noted draining yellow urine to urometer. Skin alterations noted, as well as left BKA. Pt has a right femoral virgilio cath with pigtail, dressing clean, dry, and intact. Pt received and maintained on BL Soft Wrist restraints, skin is intact without redness or edema, radial pulses palpable. PIV Rt Hand and Rt FA #20G noted, both running TKO. Bed locked and in lowest position, bed alarm on, side rails up x 2 , call light within reach, will continue to monitor.
[2019-12-03 07:55] LABS: ALANINE AMINOTRANSFERASE 43 U/L (12-78); ALBUMIN 1.8 G/DL (3.4-5.0); ALBUMIN/GLOBULIN RATIO 0.4 (1.0-2.7); ALKALINE PHOSPHATASE 139 U/L (46-116); ANION GAP 11 mmol/L (5-15); ASPARTATE AMINO TRANSFERASE 61 U/L (15-37); BILIRUBIN,TOTAL 0.6 MG/DL (0.2-1.0); BLOOD UREA NITROGEN 63 mg/dL (7-18); CARBON DIOXIDE 31 MMOL/L (21-32); CHLORIDE 105 MMOL/L (98-107); CREATININE 5.4 MG/DL (0.55-1.30); POTASSIUM 3.3 MMOL/L (3.5-5.1); SODIUM 147 MMOL/L (136-145)
[2019-12-03 08:14] LABS: HEMATOCRIT 22.4 % (42.0-52.0); HEMOGLOBIN 7.8 G/DL (14.2-18.0); MEAN CORPUSCULAR VOLUME 85 FL (80-99); PLATELET COUNT 239 K/UL (150-450); RED BLOOD COUNT 2.65 M/UL (4.70-6.10); WHITE BLOOD COUNT 17.5 K/UL (4.8-10.8)
--- NOTE | 2019-12-03 08:52 | NUR ---
NURSE NOTES: Dr Sidhu at bedside assessing pt. Updated him on pt's current condition. Hemodialysis ordered for today. Called [facility] and spoke to NOA @ [phone] to arrange dialysis.
[2019-12-03] MEDS: Carvedilol 12.5mg tab NG SCH ×2 (09:07→22:26)
[2019-12-03] MEDS: Heparin 5000 units/ml inj SUBQ SCH ×2 (09:09→22:25)
--- NOTE | 2019-12-03 10:00 | NUR ---
NURSE NOTES: Pt taken off BiPAP and placed on 4L NC. Tolerating well. No respiratory distress noted. Pt has no complaints. Will continue to monitor.
--- NOTE | 2019-12-03 10:32 | Infectious Diseases Prog Note ---
Assessment/Plan Assessment/Plan Assessment: Septic Shock- SP Pneumonia -12/01 CXR: probably unchanged bilateral diffuse interstitial and airspace disease. -11/30 sp cx:Interim marked worsening of bilateral pulmonary parenchymal disease, over one day -11/29 sp cx ESBL E.coli (S zosyn, Imipenem, bactrim) -11/24 u/a neg; ucx neg Bcx NTD influenza sc neg CXR: Bilateral dense consolidation, likely pneumonia. Pulmonary edema also possible. Correlate with clinical findings sp cx ordered,not done legionella ag urine neg S. hominis bacteremia- RIJ infection vs contamination -11/27 Bcx 1/4 S. hominis; 11/29 Bcx 1/2 S. hominis (RIJ), NTD x2 (peripheral) Fever,SP Leukocytosis, increased, now improving ARDS Acute respiratory failure s/p intubation 11/24, sp extubation 11/29, now on bipap GANGA on CKD; now on HD 11/27 Elevated LFTs;improving Troponinemia Dm2 Gout s/p L BKA allergic rhinitis CAD s/p stent prosthetic AVR hx of esophagitis PVD chronic sCHF HLD HTN SNF resident Plan: -Continue empiric Meropenem #4/7 for ESBL E.coli PNA -12/01 SP IV Vancomycin #8, Tamiflu #7 -11/30 SP LEvaquin #7, Cefepime #7 -f/u cx -Monitor CBC/CMP, temperatures -f/u sp cx -ICU care -aspiration precautions -repeat Bcx x2 -Remove R IJ discussed with RN Thank you for this consultation. Will continue to follow along with you. Subjective Allergies: Coded Allergies: No Known Allergies (Unverified , 11/24/19) Subjective Afebrile On BiPAP in the ICU Continued leukocytosis Objective Vital Signs Last 24 Hour Vital Signs Date Time Temp Pulse Resp B/P (MAP) Pulse Ox O2 Delivery O2 Flow Rate FiO2 12/03/19 10:00 85 23 123/52 (75) 93 12/03/19 09:07 129/51 12/03/19 09:07 85 129/51 12/03/19 09:00 90 33 129/51 (77) 100 12/03/19 08:03 86 12/03/19 08:00 Bi-pap 40.0 Bi-pap 40.0 12/03/19 08:00 99.3 86 32 119/46 (70) 100 12/03/19 07:01 87 24 96 40 12/03/19 07:01 96 Bi-Pap 40 12/03/19 07:00 87 30 126/48 (74) 96 12/03/19 06:07 136/53 12/03/19 06:00 89 29 136/53 (80) 100 12/03/19 05:00 90 17 133/57 (82) 98 12/03/19 04:54 90 15 100 40 12/03/19 04:53 40 12/03/19 04:30 128/49 12/03/19 04:00 99.2 93 20 128/49 (75) 95 12/03/19 04:00 8.0 40 12/03/19 04:00 Venturi Mask 8.0 Venturi Mask 8.0 Venturi Mask 8.0 Venturi Mask 8.0 12/03/19 03:15 86 12/03/19 03:00 91 22 123/50 (74) 92 12/03/19 02:00 94 23 127/51 (76) 94 12/03/19 01:00 97 22 130/52 (78) 91 12/03/19 00:00 Venturi Mask 8.0 Venturi Mask 8.0 Venturi Mask 8.0 Venturi Mask 8.0 12/03/19 00:00 8.0 40 12/03/19 00:00 99.2 91 23 127/54 (78) 98 12/02/19 23:49 124/49 12/02/19 23:03 87 12/02/19 23:00 88 21 124/49 (74) 98 12/02/19 22:00 87 19 124/49 (74) 96 12/02/19 21:00 91 22 128/46 (73) 98 12/02/19 20:55 92 124/48 12/02/19 20:00 8.0 40 12/02/19 20:00 99.0 90 18 124/48 (73) 100 12/02/19 20:00 Venturi Mask 8.0 Venturi Mask 8.0 Venturi Mask 8.0 Venturi Mask 8.0 12/02/19 19:24 99 Venturi Mask 8.0 40 12/02/19 19:12 93 12/02/19 19:00 81 19 119/42 (67) 98 12/02/19 18:00 96 20 124/43 (70) 99 12/02/19 17:27 122/43 12/02/19 17:26 122/43 12/02/19 17:00 89 16 122/43 (69) 99 12/02/19 16:00 78 12/02/19 16:00 98.7 89 13 121/42 (68) 100 12/02/19 16:00 Venturi Mask 8.0 Venturi Mask 8.0 Venturi Mask 8.0 Venturi Mask 8.0 12/02/19 15:00 88 12 128/44 (72) 100 12/02/19 14:00 87 27 125/46 (72) 100 12/02/19 13:54 129/53 12/02/19 13:00 8.0 40 12/02/19 13:00 84 16 129/53 (78) 100 12/02/19 12:57 128/51 12/02/19 12:09 83 20 100 12/02/19 12:00 85 12/02/19 12:00 Venturi Mask 10.0 Venturi Mask 10.0 Venturi Mask 10.0 Venturi Mask 10.0 12/02/19 12:00 10.0 45 12/02/19 12:00 98.0 80 34 128/51 (76) 100 12/02/19 11:00 71 17 124/52 (76) 100 12/02/19 10:48 81 12 100 45 Height (Feet): 5 Height (Inches): 8.00 Weight (Pounds): 246 Objective GENERAL: On BiPAP HEENT: NCAT, MMM, EOMI CHEST: Coarse B/L no wheezes or rales. CARDIOVASCULAR: Regular rate. S1 and S2 normal ABDOMEN: Soft, nontender, and nondistended Laboratory Tests Test 12/03/19 06:19 White Blood Count 17.5 K/UL (4.8-10.8) H Red Blood Count 2.65 M/UL (4.70-6.10) L Hemoglobin 7.8 G/DL (14.2-18.0) L Hematocrit 22.4 % (42.0-52.0) L Mean Corpuscular Volume 85 FL (80-99) Mean Corpuscular Hemoglobin 29.4 PG (27.0-31.0) Mean Corpuscular Hemoglobin Concent 34.8 G/DL (32.0-36.0) Red Cell Distribution Width 14.0 % (11.6-14.8) Platelet Count 239 K/UL (150-450) Mean Platelet Volume 4.9 FL (6.5-10.1) L Neutrophils (%) (Auto) % (45.0-75.0) Lymphocytes (%) (Auto) % (20.0-45.0) Monocytes (%) (Auto) % (1.0-10.0) Eosinophils (%) (Auto) % (0.0-3.0) Basophils (%) (Auto) % (0.0-2.0) Differential Total Cells Counted 100 Neutrophils % (Manual) 84 % (45-75) H Lymphocytes % (Manual) 9 % (20-45) L Monocytes % (Manual) 5 % (1-10) Eosinophils % (Manual) 2 % (0-3) Basophils % (Manual) 0 % (0-2) Band Neutrophils 0 % (0-8) Platelet Estimate Adequate Platelet Morphology Normal Hypochromasia 1+ Sodium Level 147 MMOL/L (136-145) H Potassium Level 3.3 MMOL/L (3.5-5.1) L Chloride Level 105 MMOL/L (98-107) Carbon Dioxide Level 31 MMOL/L (21-32) Anion Gap 11 mmol/L (5-15) Blood Urea Nitrogen 63 mg/dL (7-18) H Creatinine 5.4 MG/DL (0.55-1.30) H Estimat Glomerular Filtration Rate 13.3 mL/min (>60) Glucose Level 182 MG/DL (74-106) H Calcium Level 9.0 MG/DL (8.5-10.1) Total Bilirubin 0.6 MG/DL (0.2-1.0) Aspartate Amino Transf (AST/SGOT) 61 U/L (15-37) H Alanine Aminotransferase (ALT/SGPT) 43 U/L (12-78) Alkaline Phosphatase 139 U/L (46-116) H Pro-B-Type Natriuretic Peptide 45895 pg/mL (0-125) H Total Protein 6.4 G/DL (6.4-8.2) Albumin 1.8 G/DL (3.4-5.0) L Globulin 4.6 g/dL Albumin/Globulin Ratio 0.4 (1.0-2.7) L Current Medications Medications (Trade) Dose Ordered Sig/Valeriano Route PRN Reason Start Time Stop Time Status Last Admin Dose Admin Acetaminophen (Tylenol) 650 mg Q4H PRN NG Mild Pain/Temp > 100.5 11/29/19 08:00 12/29/19 07:59 11/30/19 17:37 Albuterol/ Ipratropium (Albuterol/ Ipratropium) 3 ml Q4H PRN HHN Shortness of Breath 11/29/19 15:15 12/04/19 15:14 11/30/19 19:19 Amlodipine Besylate (Norvasc) 2.5 mg DAILYPRN PRN ORAL sbp greater than 150 12/01/19 21:30 12/31/19 21:29 Carvedilol (Coreg) 12.5 mg EVERY 12 HOURS NG 11/30/19 21:00 12/28/19 20:59 12/03/19 09:07 Chlorhexidine Gluconate (Katia-Hex 2%) 1 applic DAILY@2000 TOPIC 11/25/19 20:00 12/25/19 19:59 12/02/19 19:41 Dextrose (Dextrose 50%) 25 ml Q30M PRN IV Hypoglycemia 11/24/19 13:30 12/24/19 13:29 Dextrose (Dextrose 50%) 50 ml Q30M PRN IV Hypoglycemia 11/24/19 13:30 12/24/19 13:29 Folic Acid (Folate) 5 mg DAILY GT 11/27/19 09:00 12/27/19 08:59 12/03/19 09:08 Heparin Sodium (Porcine) (Heparin 5000 units/ml) 5,000 units EVERY 12 HOURS SUBQ 11/24/19 21:00 12/24/19 20:59 12/03/19 09:09 Hydralazine HCl (Apresoline) 50 mg EVERY 6 HOURS GT 12/02/19 00:00 01/01/20 00:00 12/03/19 06:07 Insulin Aspart (NovoLOG) BEFORE MEALS AND HS SUBQ 11/24/19 16:30 12/24/19 16:29 12/03/19 06:09 Isosorbide Dinitrate (Isordil) 20 mg TID ORAL 2/21/20 09:00 01/01/20 08:59 12/03/19 09:07 Lansoprazole (Prevacid) 30 mg BID NG 11/30/19 18:00 12/30/19 17:59 12/03/19 09:07 Meropenem 500 mg/ Sodium Chloride 55 ml @ 110 mls/hr Q24H IVPB 11/30/19 12:00 12/06/19 13:00 12/02/19 12:58 Morphine Sulfate (Morphine Sulfate) 2 mg Q4H PRN IVP Severe Pain (Pain Scale 7-10) 11/29/19 13:15 12/06/19 13:14 12/03/19 04:12 Nitroglycerin (Ntg) 0.4 mg Q5M PRN SL Prn Chest Pain 11/24/19 09:30 12/24/19 09:29 11/24/19 09:23 Norepinephrine Bitartrate 8 mg/ Dextrose 500 ml @ 0 mls/hr Q24H IV 11/25/19 04:30 12/25/19 04:29 11/25/19 04:54 Ondansetron HCl (Zofran) 4 mg Q6H PRN IVP Nausea & Vomiting 11/24/19 13:30 12/24/19 13:29 Polyethylene Glycol (Miralax) 17 gm DAILYPRN PRN ORAL Constipation 11/24/19 13:30 12/24/19 13:29 Promethazine HCl/ Codeine (Phenergan with Codeine) 5 ml Q4H PRN ORAL For Cough 11/24/19 13:30 12/24/19 13:29 Keshav Souza MD Dec 03, 2019 10:32
--- NOTE | 2019-12-03 10:50 | Nephrology Progress Note ---
Assessment/Plan Problem List: (1) ARF (acute renal failure) (2) Acute respiratory failure (3) Septic shock (4) Anemia (5) History of hypertension (6) Diabetes mellitus (7) Acute on chronic systolic heart failure Assessment: ej Fx 40 Assessment Acute renal failure- ? Underlying CKD Respiratory failure Anemia Sepsis / Shock ? Pneumonia DM HTN by history Gout left BKA Cardiomyopathy - Ej Fx 40% Plan Plan: HD 12/01 ( 5th in a row), next 12/03 was transfused on coreg increase hydralazine discussed with ICU pharmacist in charge owner DC IV previously DC Hydrocortisone Antibiotics urine studies avoid nephrotoxics monitor renal parameters Anemia hairston per orders Subjective ROS Limited/Unobtainable: Yes Objective Objective Last 24 Hour Vital Signs Date Time Temp Pulse Resp B/P (MAP) Pulse Ox O2 Delivery O2 Flow Rate FiO2 12/03/19 10:00 85 23 123/52 (75) 93 12/03/19 09:07 129/51 12/03/19 09:07 85 129/51 12/03/19 09:00 90 33 129/51 (77) 100 12/03/19 08:03 86 12/03/19 08:00 Bi-pap 40.0 Bi-pap 40.0 12/03/19 08:00 99.3 86 32 119/46 (70) 100 12/03/19 07:01 87 24 96 40 12/03/19 07:01 96 Bi-Pap 40 12/03/19 07:00 87 30 126/48 (74) 96 12/03/19 06:07 136/53 12/03/19 06:00 89 29 136/53 (80) 100 12/03/19 05:00 90 17 133/57 (82) 98 12/03/19 04:54 90 15 100 40 12/03/19 04:53 40 12/03/19 04:30 128/49 12/03/19 04:00 99.2 93 20 128/49 (75) 95 12/03/19 04:00 8.0 40 12/03/19 04:00 Venturi Mask 8.0 Venturi Mask 8.0 Venturi Mask 8.0 Venturi Mask 8.0 12/03/19 03:15 86 12/03/19 03:00 91 22 123/50 (74) 92 12/03/19 02:00 94 23 127/51 (76) 94 12/03/19 01:00 97 22 130/52 (78) 91 12/03/19 00:00 Venturi Mask 8.0 Venturi Mask 8.0 Venturi Mask 8.0 Venturi Mask 8.0 12/03/19 00:00 8.0 40 12/03/19 00:00 99.2 91 23 127/54 (78) 98 12/02/19 23:49 124/49 12/02/19 23:03 87 12/02/19 23:00 88 21 124/49 (74) 98 12/02/19 22:00 87 19 124/49 (74) 96 12/02/19 21:00 91 22 128/46 (73) 98 12/02/19 20:55 92 124/48 12/02/19 20:00 8.0 40 12/02/19 20:00 99.0 90 18 124/48 (73) 100 12/02/19 20:00 Venturi Mask 8.0 Venturi Mask 8.0 Venturi Mask 8.0 Venturi Mask 8.0 12/02/19 19:24 99 Venturi Mask 8.0 40 12/02/19 19:12 93 12/02/19 19:00 81 19 119/42 (67) 98 12/02/19 18:00 96 20 124/43 (70) 99 12/02/19 17:27 122/43 12/02/19 17:26 122/43 12/02/19 17:00 89 16 122/43 (69) 99 12/02/19 16:00 78 12/02/19 16:00 98.7 89 13 121/42 (68) 100 12/02/19 16:00 Venturi Mask 8.0 Venturi Mask 8.0 Venturi Mask 8.0 Venturi Mask 8.0 12/02/19 15:00 88 12 128/44 (72) 100 12/02/19 14:00 87 27 125/46 (72) 100 12/02/19 13:54 129/53 12/02/19 13:00 8.0 40 12/02/19 13:00 84 16 129/53 (78) 100 12/02/19 12:57 128/51 12/02/19 12:09 83 20 100 12/02/19 12:00 85 12/02/19 12:00 Venturi Mask 10.0 Venturi Mask 10.0 Venturi Mask 10.0 Venturi Mask 10.0 12/02/19 12:00 10.0 45 12/02/19 12:00 98.0 80 34 128/51 (76) 100 12/02/19 11:00 71 17 124/52 (76) 100 Intake and Output 12/02/19 12/03/19 19:00 07:00 Intake Total 175 ml 380 ml Output Total 175 ml 70 ml Balance 0 ml 310 ml Intake Free Water 30 ml IV Total 55 ml Tube Feeding 90 ml 260 ml Other 120 ml Output Urine Total 175 ml 70 ml # Bowel Movements 2 Laboratory Tests 12/03/19 06:19: White Blood Count 17.5H, Red Blood Count 2.65L, Hemoglobin 7.8L, Hematocrit 22.4L, Mean Corpuscular Volume 85, Mean Corpuscular Hemoglobin 29.4, Mean Corpuscular Hemoglobin Concent 34.8, Red Cell Distribution Width 14.0, Platelet Count 239, Mean Platelet Volume 4.9L, Neutrophils (%) (Auto) , Lymphocytes (%) ( Auto) , Monocytes (%) (Auto) , Eosinophils (%) (Auto) , Basophils (%) (Auto) , Differential Total Cells Counted 100, Neutrophils % (Manual) 84H, Lymphocytes % (Manual) 9L, Monocytes % (Manual) 5, Eosinophils % (Manual) 2, Basophils % ( Manual) 0, Band Neutrophils 0, Platelet Estimate Adequate, Platelet Morphology Normal, Hypochromasia 1+, Sodium Level 147H, Potassium Level 3.3L, Chloride Level 105, Carbon Dioxide Level 31, Anion Gap 11, Blood Urea Nitrogen 63H, Creatinine 5.4H, Estimat Glomerular Filtration Rate 13.3, Glucose Level 182H, Calcium Level 9.0, Total Bilirubin 0.6, Aspartate Amino Transf (AST/SGOT) 61H, Alanine Aminotransferase (ALT/SGPT) 43, Alkaline Phosphatase 139H, Pro-B-Type Natriuretic Peptide 14754Q, Total Protein 6.4, Albumin 1.8L, Globulin 4.6, Albumin/Globulin Ratio 0.4L Height (Feet): 5 Height (Inches): 8.00 Weight (Pounds): 246 General Appearance: mild distress EENT: other - BIPAP Cardiovascular: tachycardia Respiratory/Chest: decreased breath sounds Abdomen: distended Fouladian,Tej MD Dec 03, 2019 10:50
[2019-12-03] MEDS: Meropenem 500 MG in NS 55 ML IVPB SCH (12:04)
--- NOTE | 2019-12-03 12:15 | NUR ---
NURSE NOTES: Pt appears to be forgetful and confused at times, repetitive with questions. Pt turned and repositioned. Oral care completed.
--- NOTE | 2019-12-03 12:33 | Surgery Progress Note ---
Surgery Progress Note Subjective Procedure Performed Right femoral temporary hemodialysis catheter insertion Additional Comments doing well tolerating tube feeds wants food comfortable no complaints IJ out Objective Last 24 Hour Vital Signs Date Time Temp Pulse Resp B/P (MAP) Pulse Ox O2 Delivery O2 Flow Rate FiO2 12/03/19 12:04 118/52 12/03/19 12:04 118/52 12/03/19 12:00 81 21 118/52 (74) 98 12/03/19 12:00 4.0 12/03/19 12:00 Bi-pap 40.0 Bi-pap 40.0 12/03/19 11:00 83 21 123/52 (75) 96 12/03/19 10:00 85 23 123/52 (75) 93 12/03/19 09:07 129/51 12/03/19 09:07 85 129/51 12/03/19 09:00 90 33 129/51 (77) 100 12/03/19 08:03 86 12/03/19 08:00 Bi-pap 40.0 Bi-pap 40.0 12/03/19 08:00 40 12/03/19 08:00 99.3 86 32 119/46 (70) 100 12/03/19 07:01 87 24 96 40 12/03/19 07:01 96 Bi-Pap 40 12/03/19 07:00 87 30 126/48 (74) 96 12/03/19 06:07 136/53 12/03/19 06:00 89 29 136/53 (80) 100 12/03/19 05:00 90 17 133/57 (82) 98 12/03/19 04:54 90 15 100 40 12/03/19 04:53 40 12/03/19 04:30 128/49 12/03/19 04:00 99.2 93 20 128/49 (75) 95 12/03/19 04:00 8.0 40 12/03/19 04:00 Venturi Mask 8.0 Venturi Mask 8.0 Venturi Mask 8.0 Venturi Mask 8.0 12/03/19 03:15 86 12/03/19 03:00 91 22 123/50 (74) 92 12/03/19 02:00 94 23 127/51 (76) 94 12/03/19 01:00 97 22 130/52 (78) 91 12/03/19 00:00 Venturi Mask 8.0 Venturi Mask 8.0 Venturi Mask 8.0 Venturi Mask 8.0 12/03/19 00:00 8.0 40 12/03/19 00:00 99.2 91 23 127/54 (78) 98 12/02/19 23:49 124/49 12/02/19 23:03 87 12/02/19 23:00 88 21 124/49 (74) 98 12/02/19 22:00 87 19 124/49 (74) 96 12/02/19 21:00 91 22 128/46 (73) 98 12/02/19 20:55 92 124/48 12/02/19 20:00 8.0 40 12/02/19 20:00 99.0 90 18 124/48 (73) 100 12/02/19 20:00 Venturi Mask 8.0 Venturi Mask 8.0 Venturi Mask 8.0 Venturi Mask 8.0 12/02/19 19:24 99 Venturi Mask 8.0 40 12/02/19 19:12 93 12/02/19 19:00 81 19 119/42 (67) 98 12/02/19 18:00 96 20 124/43 (70) 99 12/02/19 17:27 122/43 12/02/19 17:26 122/43 12/02/19 17:00 89 16 122/43 (69) 99 12/02/19 16:00 78 12/02/19 16:00 98.7 89 13 121/42 (68) 100 12/02/19 16:00 Venturi Mask 8.0 Venturi Mask 8.0 Venturi Mask 8.0 Venturi Mask 8.0 12/02/19 15:00 88 12 128/44 (72) 100 12/02/19 14:00 87 27 125/46 (72) 100 12/02/19 13:54 129/53 12/02/19 13:00 8.0 40 12/02/19 13:00 84 16 129/53 (78) 100 12/02/19 12:57 128/51 I&O Intake and Output 12/02/19 12/03/19 19:00 07:00 Intake Total 175 ml 380 ml Output Total 175 ml 70 ml Balance 0 ml 310 ml Intake Free Water 30 ml IV Total 55 ml Tube Feeding 90 ml 260 ml Other 120 ml Output Urine Total 175 ml 70 ml # Bowel Movements 2 Dressing: dry Wound: clean Cardiovascular: RSR Respiratory: clear Abdomen: soft, non-tender, present bowel sounds Extremities: no tenderness, no cyanosis Laboratory Tests Test 12/03/19 06:19 White Blood Count 17.5 K/UL (4.8-10.8) H Red Blood Count 2.65 M/UL (4.70-6.10) L Hemoglobin 7.8 G/DL (14.2-18.0) L Hematocrit 22.4 % (42.0-52.0) L Mean Corpuscular Volume 85 FL (80-99) Mean Corpuscular Hemoglobin 29.4 PG (27.0-31.0) Mean Corpuscular Hemoglobin Concent 34.8 G/DL (32.0-36.0) Red Cell Distribution Width 14.0 % (11.6-14.8) Platelet Count 239 K/UL (150-450) Mean Platelet Volume 4.9 FL (6.5-10.1) L Neutrophils (%) (Auto) % (45.0-75.0) Lymphocytes (%) (Auto) % (20.0-45.0) Monocytes (%) (Auto) % (1.0-10.0) Eosinophils (%) (Auto) % (0.0-3.0) Basophils (%) (Auto) % (0.0-2.0) Differential Total Cells Counted 100 Neutrophils % (Manual) 84 % (45-75) H Lymphocytes % (Manual) 9 % (20-45) L Monocytes % (Manual) 5 % (1-10) Eosinophils % (Manual) 2 % (0-3) Basophils % (Manual) 0 % (0-2) Band Neutrophils 0 % (0-8) Platelet Estimate Adequate Platelet Morphology Normal Hypochromasia 1+ Sodium Level 147 MMOL/L (136-145) H Potassium Level 3.3 MMOL/L (3.5-5.1) L Chloride Level 105 MMOL/L (98-107) Carbon Dioxide Level 31 MMOL/L (21-32) Anion Gap 11 mmol/L (5-15) Blood Urea Nitrogen 63 mg/dL (7-18) H Creatinine 5.4 MG/DL (0.55-1.30) H Estimat Glomerular Filtration Rate 13.3 mL/min (>60) Glucose Level 182 MG/DL (74-106) H Calcium Level 9.0 MG/DL (8.5-10.1) Total Bilirubin 0.6 MG/DL (0.2-1.0) Aspartate Amino Transf (AST/SGOT) 61 U/L (15-37) H Alanine Aminotransferase (ALT/SGPT) 43 U/L (12-78) Alkaline Phosphatase 139 U/L (46-116) H Pro-B-Type Natriuretic Peptide 87278 pg/mL (0-125) H Total Protein 6.4 G/DL (6.4-8.2) Albumin 1.8 G/DL (3.4-5.0) L Globulin 4.6 g/dL Albumin/Globulin Ratio 0.4 (1.0-2.7) L Plan Problems: (1) Septic shock Assessment & Plan: Patient in septic shock prior central line and pressors intubated on vent support in the intensive care unit tachycardic. Renal insufficiency requiring hemodialysis. Temporary hemodialysis catheter indicated and recommended Please see procedure note Dialysis as per nephrology IV antibiotics post per infectious disease Dressing changes as per protocol We will monitor site for hematoma or infection No further acute surgical intervention recommended at this time will follow with recommendations thank you for let me participate patient's care extubated improved plan to change to tunneled cath thursday (2) Acute respiratory failure Assessment & Plan: DAILY ESTIMATED NEEDS: Needs based on Critical care, sepsis 75kg adj 22-28 kcals/kg 3972-1513 total kcals 1.2-2 g protein/kg 90-150 g total protein 25-30 mL/kg 7734-6230 total fluid mLs NUTRITION DIAGNOSIS: Swallowing difficulty r/t resp status as evidenced by septic shock now s/p intubation, w/ NGT, NPO at this time. ENTERAL NUTRITION RECOMMENDATIONS: Nepro @40ml/hr x24 hrs + Prosource BID to provide 960ml, 78g + 22 g pro, 698ml free H2O - As medically appropriate, rec non oral feeds via NGT - Start Nepro @20ml/hr for 6 hrs. Advance as tolerated 10ml/hr q4-6 hrs to goal. - Add Prosource BID to better meet est pro needs - Flush per . HOB over 30 degrees -------- ADDITIONAL RECOMMENDATIONS: 1) Tf recs as above, feed as medically able 2) Ad PROSOURCE VIA NGT BID to better meet est pro needs 3) Per SNF: 69inches tall, last wt of 210 lbs (2/3) -> rec weekly calibrated bed scale wts 4) STRANNER eval upon extubation (3) Sepsis (4) History of left below knee amputation Assessment & Plan: Wound stable dressings intact elevate with Ranjit Horton Dec 03, 2019 12:33
--- NOTE | 2019-12-03 14:05 | NUR ---
NURSE NOTES: Pt observed laying in bed with his eyes closed, appears to be sleeping. No distress noted at this time.
[2019-12-03] MEDS ORDERED: D5W 275ml ONE (15:09)
[2019-12-03] MEDS ORDERED: Tubing IV Secondary IV ONE ×2 (15:09→15:11)
[2019-12-03] MEDS ORDERED: NS 275ml ONE ×2 (15:11→16:11)
--- NOTE | 2019-12-03 16:13 | Internal Med Progress Note ---
Subjective Date of Service: Dec 03, 2019 Physician Name Sidney Galaviz Attending Physician Cezar Ceja MD Current Medications Medications (Trade) Dose Ordered Sig/Valeriano Route PRN Reason Start Time Stop Time Status Last Admin Dose Admin Acetaminophen (Tylenol) 650 mg Q4H PRN NG Mild Pain/Temp > 100.5 11/29/19 08:00 12/29/19 07:59 11/30/19 17:37 Albuterol/ Ipratropium (Albuterol/ Ipratropium) 3 ml Q4H PRN HHN Shortness of Breath 11/29/19 15:15 12/04/19 15:14 11/30/19 19:19 Amlodipine Besylate (Norvasc) 2.5 mg DAILYPRN PRN ORAL sbp greater than 150 12/01/19 21:30 12/31/19 21:29 Carvedilol (Coreg) 12.5 mg EVERY 12 HOURS NG 11/30/19 21:00 12/28/19 20:59 12/03/19 09:07 Chlorhexidine Gluconate (Katia-Hex 2%) 1 applic DAILY@2000 TOPIC 11/25/19 20:00 12/25/19 19:59 12/02/19 19:41 Dextrose (Dextrose 50%) 25 ml Q30M PRN IV Hypoglycemia 11/24/19 13:30 12/24/19 13:29 Dextrose (Dextrose 50%) 50 ml Q30M PRN IV Hypoglycemia 11/24/19 13:30 12/24/19 13:29 Folic Acid (Folate) 5 mg DAILY GT 11/27/19 09:00 12/27/19 08:59 12/03/19 09:08 Heparin Sodium (Porcine) (Heparin 5000 units/ml) 5,000 units EVERY 12 HOURS SUBQ 11/24/19 21:00 12/24/19 20:59 12/03/19 09:09 Hydralazine HCl (Apresoline) 50 mg EVERY 6 HOURS GT 12/02/19 00:00 01/01/20 00:00 12/03/19 12:04 Insulin Aspart (NovoLOG) BEFORE MEALS AND HS SUBQ 11/24/19 16:30 12/24/19 16:29 12/03/19 12:06 Isosorbide Dinitrate (Isordil) 20 mg TID ORAL 12/02/19 09:00 01/01/20 08:59 12/03/19 12:04 Lansoprazole (Prevacid) 30 mg BID NG 11/30/19 18:00 12/30/19 17:59 12/03/19 09:07 Meropenem 500 mg/ Sodium Chloride 55 ml @ 110 mls/hr Q24H IVPB 11/30/19 12:00 12/06/19 13:00 12/03/19 12:04 Morphine Sulfate (Morphine Sulfate) 2 mg Q4H PRN IVP Severe Pain (Pain Scale 7-10) 11/29/19 13:15 12/06/19 13:14 12/03/19 04:12 Nitroglycerin (Ntg) 0.4 mg Q5M PRN SL Prn Chest Pain 11/24/19 09:30 12/24/19 09:29 11/24/19 09:23 Norepinephrine Bitartrate 8 mg/ Dextrose 500 ml @ 0 mls/hr Q24H IV 11/25/19 04:30 12/25/19 04:29 11/25/19 04:54 Ondansetron HCl (Zofran) 4 mg Q6H PRN IVP Nausea & Vomiting 11/24/19 13:30 12/24/19 13:29 Polyethylene Glycol (Miralax) 17 gm DAILYPRN PRN ORAL Constipation 11/24/19 13:30 12/24/19 13:29 Promethazine HCl/ Codeine (Phenergan with Codeine) 5 ml Q4H PRN ORAL For Cough 11/24/19 13:30 12/24/19 13:29 Allergies: Coded Allergies: No Known Allergies (Unverified , 11/24/19) ROS Limited/Unobtainable: No Constitutional: Reports: no symptoms HEENT: Reports: no symptoms Cardiovascular: Reports: no symptoms Respiratory: Reports: shortness of breath Gastrointestinal/Abdominal: Reports: no symptoms Genitourinary: Reports: no symptoms Neurologic/Psychiatric: Reports: no symptoms Subjective 59 YO M admitted with respiratory failure. Cover for Nataly Ceja. ICU. Objective Last Vital Signs Date Time Temp Pulse Resp B/P (MAP) Pulse Ox O2 Delivery O2 Flow Rate FiO2 12/03/19 16:00 Nasal Cannula 5.0 Nasal Cannula 5.0 12/03/19 16:00 87 12/03/19 15:00 23 123/45 (71) 97 12/03/19 12:00 99.2 12/03/19 08:00 40 Laboratory Tests Test 12/03/19 06:19 White Blood Count 17.5 K/UL (4.8-10.8) H Red Blood Count 2.65 M/UL (4.70-6.10) L Hemoglobin 7.8 G/DL (14.2-18.0) L Hematocrit 22.4 % (42.0-52.0) L Mean Corpuscular Volume 85 FL (80-99) Mean Corpuscular Hemoglobin 29.4 PG (27.0-31.0) Mean Corpuscular Hemoglobin Concent 34.8 G/DL (32.0-36.0) Red Cell Distribution Width 14.0 % (11.6-14.8) Platelet Count 239 K/UL (150-450) Mean Platelet Volume 4.9 FL (6.5-10.1) L Neutrophils (%) (Auto) % (45.0-75.0) Lymphocytes (%) (Auto) % (20.0-45.0) Monocytes (%) (Auto) % (1.0-10.0) Eosinophils (%) (Auto) % (0.0-3.0) Basophils (%) (Auto) % (0.0-2.0) Differential Total Cells Counted 100 Neutrophils % (Manual) 84 % (45-75) H Lymphocytes % (Manual) 9 % (20-45) L Monocytes % (Manual) 5 % (1-10) Eosinophils % (Manual) 2 % (0-3) Basophils % (Manual) 0 % (0-2) Band Neutrophils 0 % (0-8) Platelet Estimate Adequate Platelet Morphology Normal Hypochromasia 1+ Sodium Level 147 MMOL/L (136-145) H Potassium Level 3.3 MMOL/L (3.5-5.1) L Chloride Level 105 MMOL/L (98-107) Carbon Dioxide Level 31 MMOL/L (21-32) Anion Gap 11 mmol/L (5-15) Blood Urea Nitrogen 63 mg/dL (7-18) H Creatinine 5.4 MG/DL (0.55-1.30) H Estimat Glomerular Filtration Rate 13.3 mL/min (>60) Glucose Level 182 MG/DL (74-106) H Calcium Level 9.0 MG/DL (8.5-10.1) Total Bilirubin 0.6 MG/DL (0.2-1.0) Aspartate Amino Transf (AST/SGOT) 61 U/L (15-37) H Alanine Aminotransferase (ALT/SGPT) 43 U/L (12-78) Alkaline Phosphatase 139 U/L (46-116) H Pro-B-Type Natriuretic Peptide 46512 pg/mL (0-125) H Total Protein 6.4 G/DL (6.4-8.2) Albumin 1.8 G/DL (3.4-5.0) L Globulin 4.6 g/dL Albumin/Globulin Ratio 0.4 (1.0-2.7) L Intake and Output 12/02/19 12/03/19 19:00 07:00 Intake Total 175 ml 380 ml Output Total 175 ml 70 ml Balance 0 ml 310 ml Intake Free Water 30 ml IV Total 55 ml Tube Feeding 90 ml 260 ml Other 120 ml Output Urine Total 175 ml 70 ml # Bowel Movements 2 Objective PHYSICAL EXAMINATION: GENERAL: The patient is a well-developed and well-nourished male, in moderate respiratory distress. HEENT: Eyes, pupils are equal and responsive to light and accommodation. Extraocular movements are intact. NECK: Supple without lymphadenopathy. CHEST: nasal canula; Mechanical breath sounds, otherwise without wheezes or rales. CARDIOVASCULAR: Regular rate. S1 and S2 normal without murmurs, rubs, or gallops. ABDOMEN: Soft, nontender, and nondistended. Positive bowel sounds. No evidence of hepatosplenomegaly. Currently, no rebound or guarding noted. EXTREMITIES: Negative for clubbing, cyanosis, or edema. RECTAL/GENITAL: Refused. NEUROLOGIC: Cranial nerves II through XII are grossly intact without focal deficits. Assessment/Plan Assessment/Plan ASSESSMENT: This is a 59-year-old male. 1. Respiratory failure. 2. Pneumonia. 3. Probable sepsis. 4. Diabetes type 2. 5. Hypertension. 6. Hypercholesterolemia. TREATMENT: 1. Respiratory failure/pneumonia. The patient is currently tolerating nasal canula in the intensive care unit. A Pulmonary consultation has been obtained with Dr. Brandy Milton. ABX=vancomycin, Levaquin and cefepime to cover healthcare-associated pneumonia. Continue Tamiflu per ID=Dr Andrade. We will follow recommendations of Pulmonary. Sputum cultures are pending at this time. 2. Probable sepsis. Blood cultures are pending. As above, the patient has been placed empirically on vancomycin and cefepime. 3. Diabetes type 2. A NovoLog sliding scale has been instituted. 4. Hypertension. The patient is currently hypotensive. Hold antihypertensive medication. 5. Hypercholesterolemia. Continue atorvastatin as above. Sidney Galaviz MD Dec 03, 2019 16:12
--- NOTE | 2019-12-03 16:15 | NUR ---
NURSE NOTES: Pt repositioned. Resting comfortably in bed. Dr Galaviz was at bedside assessing pt. Updated him on pt's current condition. Ordered for pt to be transferred to SDU. Awaiting bed assignment.
--- NOTE | 2019-12-03 17:00 | NUR ---
NURSE NOTES: Pt hooked up to dialysis machine by [facility] dialysis nurse. Pt tolerating well. B/P: 126/51. HR:86
--- NOTE | 2019-12-03 17:08 | Cardiology Progress Note ---
Assessment/Plan Assessment/Plan 1. Respiratory failure, probably pneumonia. 2. chf acute systolic 3. History of aortic valve replacement per records but no surgical scar on the chest wall.(pt denies avr) 4. History of coronary artery disease, unknown details. 5. Abnormal cardiac enzymes likely secondary to demand 6. septic shock 7. renal failure 8. metabolic respiratory acidosis 9. ARDS on bipapa back in icu cxr still abn on cm med may be infuture can use acei but for now isordil hydralazine combination on iv abx ards better dialysis uf wbc elevated low grade fever Objective Last 24 Hour Vital Signs Date Time Temp Pulse Resp B/P (MAP) Pulse Ox O2 Delivery O2 Flow Rate FiO2 12/03/19 16:00 99.3 86 22 104/40 (61) 96 12/03/19 16:00 Nasal Cannula 5.0 Nasal Cannula 5.0 12/03/19 16:00 87 12/03/19 16:00 5.0 12/03/19 15:00 86 23 123/45 (71) 97 12/03/19 14:00 85 23 114/44 (67) 89 12/03/19 13:00 82 27 106/42 (63) 98 12/03/19 12:04 118/52 12/03/19 12:04 118/52 12/03/19 12:00 99.2 81 21 118/52 (74) 98 12/03/19 12:00 82 12/03/19 12:00 4.0 12/03/19 12:00 Nasal Cannula 4.0 Nasal Cannula 4.0 12/03/19 11:00 83 21 123/52 (75) 96 12/03/19 10:00 85 23 123/52 (75) 93 12/03/19 09:07 129/51 12/03/19 09:07 85 129/51 12/03/19 09:00 90 33 129/51 (77) 100 12/03/19 08:03 86 12/03/19 08:00 Bi-pap 40.0 Bi-pap 40.0 12/03/19 08:00 40 12/03/19 08:00 99.3 86 32 119/46 (70) 100 12/03/19 07:01 87 24 96 40 12/03/19 07:01 96 Bi-Pap 40 2/22/20 07:00 87 30 126/48 (74) 96 12/03/19 06:07 136/53 12/03/19 06:00 89 29 136/53 (80) 100 12/03/19 05:00 90 17 133/57 (82) 98 12/03/19 04:54 90 15 100 40 12/03/19 04:53 40 12/03/19 04:30 128/49 12/03/19 04:00 99.2 93 20 128/49 (75) 95 12/03/19 04:00 8.0 40 12/03/19 04:00 Venturi Mask 8.0 Venturi Mask 8.0 Venturi Mask 8.0 Venturi Mask 8.0 12/03/19 03:15 86 12/03/19 03:00 91 22 123/50 (74) 92 12/03/19 02:00 94 23 127/51 (76) 94 12/03/19 01:00 97 22 130/52 (78) 91 12/03/19 00:00 Venturi Mask 8.0 Venturi Mask 8.0 Venturi Mask 8.0 Venturi Mask 8.0 12/03/19 00:00 8.0 40 12/03/19 00:00 99.2 91 23 127/54 (78) 98 12/02/19 23:49 124/49 12/02/19 23:03 87 12/02/19 23:00 88 21 124/49 (74) 98 12/02/19 22:00 87 19 124/49 (74) 96 12/02/19 21:00 91 22 128/46 (73) 98 12/02/19 20:55 92 124/48 12/02/19 20:00 8.0 40 12/02/19 20:00 99.0 90 18 124/48 (73) 100 12/02/19 20:00 Venturi Mask 8.0 Venturi Mask 8.0 Venturi Mask 8.0 Venturi Mask 8.0 12/02/19 19:24 99 Venturi Mask 8.0 40 12/02/19 19:12 93 12/02/19 19:00 81 19 119/42 (67) 98 12/02/19 18:00 96 20 124/43 (70) 99 12/02/19 17:27 122/43 12/02/19 17:26 122/43 Intake and Output 2/21/20 2/22/20 19:00 07:00 Intake Total 175 ml 380 ml Output Total 175 ml 70 ml Balance 0 ml 310 ml Intake Free Water 30 ml IV Total 55 ml Tube Feeding 90 ml 260 ml Other 120 ml Output Urine Total 175 ml 70 ml # Bowel Movements 2 Laboratory Tests Test 12/03/19 06:19 White Blood Count 17.5 K/UL (4.8-10.8) H Red Blood Count 2.65 M/UL (4.70-6.10) L Hemoglobin 7.8 G/DL (14.2-18.0) L Hematocrit 22.4 % (42.0-52.0) L Mean Corpuscular Volume 85 FL (80-99) Mean Corpuscular Hemoglobin 29.4 PG (27.0-31.0) Mean Corpuscular Hemoglobin Concent 34.8 G/DL (32.0-36.0) Red Cell Distribution Width 14.0 % (11.6-14.8) Platelet Count 239 K/UL (150-450) Mean Platelet Volume 4.9 FL (6.5-10.1) L Neutrophils (%) (Auto) % (45.0-75.0) Lymphocytes (%) (Auto) % (20.0-45.0) Monocytes (%) (Auto) % (1.0-10.0) Eosinophils (%) (Auto) % (0.0-3.0) Basophils (%) (Auto) % (0.0-2.0) Differential Total Cells Counted 100 Neutrophils % (Manual) 84 % (45-75) H Lymphocytes % (Manual) 9 % (20-45) L Monocytes % (Manual) 5 % (1-10) Eosinophils % (Manual) 2 % (0-3) Basophils % (Manual) 0 % (0-2) Band Neutrophils 0 % (0-8) Platelet Estimate Adequate Platelet Morphology Normal Hypochromasia 1+ Sodium Level 147 MMOL/L (136-145) H Potassium Level 3.3 MMOL/L (3.5-5.1) L Chloride Level 105 MMOL/L (98-107) Carbon Dioxide Level 31 MMOL/L (21-32) Anion Gap 11 mmol/L (5-15) Blood Urea Nitrogen 63 mg/dL (7-18) H Creatinine 5.4 MG/DL (0.55-1.30) H Estimat Glomerular Filtration Rate 13.3 mL/min (>60) Glucose Level 182 MG/DL (74-106) H Calcium Level 9.0 MG/DL (8.5-10.1) Total Bilirubin 0.6 MG/DL (0.2-1.0) Aspartate Amino Transf (AST/SGOT) 61 U/L (15-37) H Alanine Aminotransferase (ALT/SGPT) 43 U/L (12-78) Alkaline Phosphatase 139 U/L (46-116) H Pro-B-Type Natriuretic Peptide 06744 pg/mL (0-125) H Total Protein 6.4 G/DL (6.4-8.2) Albumin 1.8 G/DL (3.4-5.0) L Globulin 4.6 g/dL Albumin/Globulin Ratio 0.4 (1.0-2.7) L Antonio Byrd MD Dec 03, 2019 17:08
--- NOTE | 2019-12-03 18:40 | NUR ---
NURSE NOTES: Pt remains on dialysis machine at this time. Will endorse pt having a bowel movement to oncoming nurse. Unable to move pt to clean d/t dialysis, as per dialysis nurse.
--- NOTE | 2019-12-03 19:33 | NUR ---
HAND-OFF: Report given to YUKI Welsh.
--- NOTE | 2019-12-03 19:34 | NUR ---
NURSE NOTES: Endorsement received from YUKI Browning. Patient awake and alert. Currently ongoing dialysis. Vital signs stable. No shortness of breath. Sinus rhythm on the monitor. On 5LPM oxygen per nasal cannula. With NGT at right nare, receiving Nepro 40ml/hr. With right femoral virgilio cath, right forearm g 20, right hand g 20. Cruz catheter in place. Left BKA, kept elevated. HOB elevated. Bed locked and in low position. Call light within reach. Bed alarm on.
[2019-12-03] MEDS: Dyna-Hex 2% Top Sol 2oz TOPIC SCH (19:59)
--- NOTE | 2019-12-03 20:00 | NUR ---
NURSE NOTES: Dialysis done. As per supervisor sign shop [employer], 2 liters output. Patient passed soft brown stool. Pericare done.
--- NOTE | 2019-12-03 20:30 | NUR ---
TRANSFER TO FLOOR: Patient transferred to room 239 bed 2, per hospital bed. Call light placed within reach, educated about the use of call light. Patient verbalized understanding. Report given to YUKI Workman. Belongings kept at bedside.
--- NOTE | 2019-12-03 20:40 | NUR ---
NURSE NOTES: Report received from IKE MIRZA in ICU. Patient awake oriented x3. On NC 5L with no respiratory distress.o2 saturation 95%. SR on monitor. vss. Afebrile.NGT feeding with Nepro at 40cc/hr with no residual. HOB elevated. Denies pain at this time. SOFIA Cath on right femoral is intact.IV to RH 20G ,RFA 20G intact, patent.Instructed call light for assistance. bed in low position, bed alarm on. On isolation for ESBL in sputum.will continue to monitor patient.
[2019-12-03] MEDS ORDERED: Albuterol/Ipratropium 3ml neb HHN PRN (21:16)
[2019-12-03] MEDS ORDERED: Promethazine/Codeine 5ml UD NG PRN (21:17)
[2019-12-03] MEDS ORDERED: Miralax 17gm pkt NG PRN (21:17)
[2019-12-03] MEDS ORDERED: Nitroglycerin Subl 0.4mg tab SL PRN (21:17)
[2019-12-04] VITALS: BP 134/64
[2019-12-04] MEDS: HydrALAZINE 50mg tab GT SCH ×4 (00:46→18:44)
[2019-12-04] MEDS: Acetaminophen 650mg/20.3ml NG PRN (00:47)
--- NOTE | 2019-12-04 02:10 | NUR ---
NURSE NOTES: Patient is comfortable, in no acute distress. Turned and repositioned . SR on monitor. Denies pain at this time.
[2019-12-04 04:00] VITALS: BP 122/48
[2019-12-04 06:05] LABS: HEMATOCRIT 22.9 % (42.0-52.0); HEMOGLOBIN 7.8 G/DL (14.2-18.0); MEAN CORPUSCULAR VOLUME 85 FL (80-99); PLATELET COUNT 217 K/UL (150-450); RED BLOOD COUNT 2.68 M/UL (4.70-6.10); RED CELL DISTRIBUTION WIDTH 13.3 % (11.6-14.8)
[2019-12-04] MEDS: NovoLOG Insulin Flexpen SUBQ SCH ×4 (06:40→21:00)
[2019-12-04 06:45] LABS: WHITE BLOOD COUNT 22.8 K/UL (4.8-10.8)
[2019-12-04 07:30] LABS: ALANINE AMINOTRANSFERASE 56 U/L (12-78); ALBUMIN 1.8 G/DL (3.4-5.0); ALBUMIN/GLOBULIN RATIO 0.4 (1.0-2.7); ALKALINE PHOSPHATASE 163 U/L (46-116); ANION GAP 8 mmol/L (5-15); ASPARTATE AMINO TRANSFERASE 79 U/L (15-37); BILIRUBIN,TOTAL 0.5 MG/DL (0.2-1.0); BLOOD UREA NITROGEN 49 mg/dL (7-18); CALCIUM 8.5 MG/DL (8.5-10.1); CARBON DIOXIDE 33 MMOL/L (21-32); CHLORIDE 100 MMOL/L (98-107); CREATININE 4.8 MG/DL (0.55-1.30); PHOSPHORUS 3.5 MG/DL (2.5-4.9); POTASSIUM 3.4 MMOL/L (3.5-5.1); SODIUM 141 MMOL/L (136-145)
--- NOTE | 2019-12-04 07:33 | NUR ---
NURSE NOTES: LATE ENTRY: RECEIVED REPORT FROM FRANCOIS OV R.N. PT IN BED, RESTING WITH EYES CLOSED. RESPONSIVE TO NAME. A/OX3. PUPILS 3MM BRISK. SR ON MONITOR. TEMP 99.0. HR 89, RR 20, BP 130/61. NO C/O PAIN, OCCASIONAL SELF SUCTION. BILATERAL LUNG SOUNDS DIMINISHED. 5L NC. ABDOMEN ROUND, HYPOACTIVE BOWEL SOUNDS, ONE BM AT THIS TIME, SMALL, BROWN. NGT RT NARES, TUBE FEEDING NEPRO RUNNING 40ML/HR. PINA PRESENT, DRAINING BRITTANY URINE. SKIN- SEE ASSESSMENT. BILATERAL RADIAL PULSES STRONG. IV ACCESS RT FA 20G AND HAND 20G. TKO. CALL LIGHT IN REACH, BED LOCKED IN LOW POSITION. CONTACT PRECAUTIONS IN PLACE. WILL CONTINUE TO MONITOR PT.
--- NOTE | 2019-12-04 07:58 | NUR ---
HAND-OFF: Report given to GREGOR MIRZA. using SBAR. Patient stable in condition.
[2019-12-04 08:00] VITALS: BP 130/61
[2019-12-04] MEDS: Heparin 5000 units/ml inj SUBQ SCH ×2 (09:00→21:00)
[2019-12-04] MEDS: Carvedilol 12.5mg tab NG SCH ×2 (09:37→21:42)
--- NOTE | 2019-12-04 10:55 | NUR ---
NURSE NOTES: MD SERRA HERE TO SEE PT. CONSENT FOR PROCEDURE IN CHART.
[2019-12-04 12:00] VITALS: BP 119/54
--- NOTE | 2019-12-04 12:00 | Nephrology Progress Note ---
Assessment/Plan Problem List: (1) ARF (acute renal failure) (2) Acute respiratory failure (3) Septic shock (4) Anemia (5) History of hypertension (6) Diabetes mellitus (7) Acute on chronic systolic heart failure Assessment: ej Fx 40 Assessment Acute renal failure- ? Underlying CKD Respiratory failure Anemia Sepsis / Shock ? Pneumonia DM HTN by history Gout left BKA Cardiomyopathy - Ej Fx 40% Plan Plan: HD 12/01 ( 5th in a row), next 12/03 and 12/05 was transfused on coreg increase hydralazine discussed with ICU discharge planner DC IV previously DC Hydrocortisone Antibiotics urine studies avoid nephrotoxics monitor renal parameters Anemia hairston per orders Subjective ROS Limited/Unobtainable: No Constitutional: Reports: malaise Objective Objective Last 24 Hour Vital Signs Date Time Temp Pulse Resp B/P (MAP) Pulse Ox O2 Delivery O2 Flow Rate FiO2 12/04/19 09:37 89 130/61 12/04/19 09:36 130/61 12/04/19 08:00 5.0 12/04/19 08:00 Nasal Cannula 5.0 Nasal Cannula 5.0 12/04/19 07:48 98 Nasal Cannula 4.0 36 12/04/19 07:48 87 16 98 Nasal Cannula 4.0 36 12/04/19 06:39 122/48 12/04/19 04:00 Nasal Cannula 5.0 Nasal Cannula 5.0 12/04/19 04:00 86 12/04/19 04:00 99.6 88 20 122/48 (72) 96 12/04/19 04:00 5.0 12/04/19 00:46 134/64 12/04/19 00:00 5.0 12/04/19 00:00 100.2 88 20 134/64 (87) 95 12/04/19 00:00 88 12/04/19 00:00 Nasal Cannula 5.0 Nasal Cannula 5.0 12/03/19 22:26 84 123/51 12/03/19 20:00 Nasal Cannula 5.0 Nasal Cannula 5.0 12/03/19 20:00 98.4 87 26 123/51 (75) 95 12/03/19 20:00 5.0 12/03/19 20:00 84 12/03/19 19:00 86 23 122/46 (71) 92 12/03/19 19:00 95 Nasal Cannula 5.0 40 2/22/20 18:00 87 24 128/49 (75) 94 12/03/19 17:40 128/43 12/03/19 17:40 128/43 12/03/19 17:00 86 21 126/51 (76) 90 12/03/19 16:00 99.3 86 22 104/40 (61) 96 12/03/19 16:00 Nasal Cannula 5.0 Nasal Cannula 5.0 12/03/19 16:00 87 12/03/19 16:00 5.0 12/03/19 15:00 86 23 123/45 (71) 97 12/03/19 14:00 85 23 114/44 (67) 89 12/03/19 13:00 82 27 106/42 (63) 98 12/03/19 12:04 118/52 12/03/19 12:04 118/52 12/03/19 12:00 99.2 81 21 118/52 (74) 98 12/03/19 12:00 82 12/03/19 12:00 4.0 12/03/19 12:00 Nasal Cannula 4.0 Nasal Cannula 4.0 Intake and Output 12/03/19 12/04/19 19:00 07:00 Intake Total 555 ml 2630 ml Output Total 110 ml 30 ml Balance 445 ml 2600 ml Intake Free Water 150 ml IV Total 55 ml Tube Feeding 360 ml 480 ml Hemodialysis 2000 ml Other 140 ml Output Urine Total 110 ml 30 ml # Bowel Movements 1 Laboratory Tests 12/04/19 04:05: White Blood Count 22.8*H, Red Blood Count 2.68L, Hemoglobin 7.8L, Hematocrit 22.9L, Mean Corpuscular Volume 85, Mean Corpuscular Hemoglobin 29.0, Mean Corpuscular Hemoglobin Concent 34.0, Red Cell Distribution Width 13.3, Platelet Count 217, Mean Platelet Volume 5.4L, Neutrophils (%) (Auto) , Lymphocytes (%) ( Auto) , Monocytes (%) (Auto) , Eosinophils (%) (Auto) , Basophils (%) (Auto) , Differential Total Cells Counted 100, Neutrophils % (Manual) 93H, Lymphocytes % (Manual) 3L, Monocytes % (Manual) 4, Eosinophils % (Manual) 0, Basophils % ( Manual) 0, Band Neutrophils 0, Platelet Estimate Adequate, Platelet Morphology Normal, Hypochromasia 1+, Anisocytosis 1+, Sodium Level 141, Potassium Level 3.4L, Chloride Level 100, Carbon Dioxide Level 33H, Anion Gap 8, Blood Urea Nitrogen 49H, Creatinine 4.8H, Estimat Glomerular Filtration Rate 15.3, Glucose Level 176H, Calcium Level 8.5, Phosphorus Level 3.5, Magnesium Level 1.9, Total Bilirubin 0.5, Aspartate Amino Transf (AST/SGOT) 79H, Alanine Aminotransferase ( ALT/SGPT) 56, Alkaline Phosphatase 163H, Total Protein 6.5, Albumin 1.8L, Globulin 4.7, Albumin/Globulin Ratio 0.4L Height (Feet): 5 Height (Inches): 8.00 Weight (Pounds): 242 General Appearance: no apparent distress Respiratory/Chest: decreased breath sounds Abdomen: distended Objective no change Tej Sidhu MD Dec 04, 2019 12:00
--- NOTE | 2019-12-04 12:00 | NUR ---
NURSE NOTES: LATE ENTRY: PT IN BED, A/OX3. SR ON MONITOR. TEMP 98.7. HR 83, RR 20, BP 119/54. NO C/O PAIN, SELF SUCTIONS. BILATERAL LUNG SOUNDS DIMINISHED. 5L NC. NGT RT NARES, TUBE FEEDING NEPRO RUNNING 40ML/HR. NO RESIDUALS. PINA PRESENT, DRAINING BRITTANY URINE. SKIN- SEE ASSESSMENT. BILATERAL RADIAL PULSES STRONG. IV ACCESS RT FA 20G AND HAND 20G. TKO. CALL LIGHT IN REACH, BED LOCKED IN LOW POSITION. CONTACT PRECAUTIONS IN PLACE. WILL CONTINUE TO MONITOR PT. FAMILY AT BEDSIDE.
[2019-12-04] MEDS: Meropenem 500 MG in NS 55 ML IVPB SCH (12:23)
--- NOTE | 2019-12-04 13:17 | NUR ---
NURSE NOTES: CALLED [facility] SPOKE WITH JOVITA, CALL REP ORDER WAS PLACED FOR PT 12/05/2019. WILL INFORM Krunal Palomino
--- NOTE | 2019-12-04 13:41 | Surgery Progress Note ---
Surgery Progress Note Subjective Procedure Performed Right femoral temporary hemodialysis catheter insertion Additional Comments leukocytosis anemia awake responsive no complaints down graded family at bedside Objective Last 24 Hour Vital Signs Date Time Temp Pulse Resp B/P (MAP) Pulse Ox O2 Delivery O2 Flow Rate FiO2 12/04/19 12:25 119/54 12/04/19 12:24 119/54 12/04/19 12:00 Nasal Cannula 5.0 Nasal Cannula 5.0 12/04/19 12:00 5.0 12/04/19 12:00 82 12/04/19 12:00 98.7 83 20 119/54 (75) 96 12/04/19 09:37 89 130/61 12/04/19 09:36 130/61 12/04/19 08:00 99.0 89 20 130/61 (84) 100 12/04/19 08:00 88 12/04/19 08:00 5.0 12/04/19 08:00 Nasal Cannula 5.0 Nasal Cannula 5.0 12/04/19 07:48 98 Nasal Cannula 4.0 36 12/04/19 07:48 87 16 98 Nasal Cannula 4.0 36 12/04/19 06:39 122/48 12/04/19 04:00 Nasal Cannula 5.0 Nasal Cannula 5.0 12/04/19 04:00 86 12/04/19 04:00 99.6 88 20 122/48 (72) 96 12/04/19 04:00 5.0 12/04/19 00:46 134/64 12/04/19 00:00 5.0 12/04/19 00:00 100.2 88 20 134/64 (87) 95 12/04/19 00:00 88 12/04/19 00:00 Nasal Cannula 5.0 Nasal Cannula 5.0 12/03/19 22:26 84 123/51 12/03/19 20:00 Nasal Cannula 5.0 Nasal Cannula 5.0 12/03/19 20:00 98.4 87 26 123/51 (75) 95 12/03/19 20:00 5.0 12/03/19 20:00 84 12/03/19 19:00 86 23 122/46 (71) 92 12/03/19 19:00 95 Nasal Cannula 5.0 40 12/03/19 18:00 87 24 128/49 (75) 94 12/03/19 17:40 128/43 12/03/19 17:40 128/43 12/03/19 17:00 86 21 126/51 (76) 90 12/03/19 16:00 99.3 86 22 104/40 (61) 96 12/03/19 16:00 Nasal Cannula 5.0 Nasal Cannula 5.0 12/03/19 16:00 87 12/03/19 16:00 5.0 12/03/19 15:00 86 23 123/45 (71) 97 12/03/19 14:00 85 23 114/44 (67) 89 I&O Intake and Output 12/03/19 12/04/19 19:00 07:00 Intake Total 555 ml 2630 ml Output Total 110 ml 30 ml Balance 445 ml 2600 ml Intake Free Water 150 ml IV Total 55 ml Tube Feeding 360 ml 480 ml Hemodialysis 2000 ml Other 140 ml Output Urine Total 110 ml 30 ml # Bowel Movements 1 Dressing: other Wound: other Cardiovascular: RSR Respiratory: clear Abdomen: soft, non-tender, present bowel sounds Extremities: no edema, no tenderness, no cyanosis Laboratory Tests Test 12/04/19 04:05 White Blood Count 22.8 K/UL (4.8-10.8) *H Red Blood Count 2.68 M/UL (4.70-6.10) L Hemoglobin 7.8 G/DL (14.2-18.0) L Hematocrit 22.9 % (42.0-52.0) L Mean Corpuscular Volume 85 FL (80-99) Mean Corpuscular Hemoglobin 29.0 PG (27.0-31.0) Mean Corpuscular Hemoglobin Concent 34.0 G/DL (32.0-36.0) Red Cell Distribution Width 13.3 % (11.6-14.8) Platelet Count 217 K/UL (150-450) Mean Platelet Volume 5.4 FL (6.5-10.1) L Neutrophils (%) (Auto) % (45.0-75.0) Lymphocytes (%) (Auto) % (20.0-45.0) Monocytes (%) (Auto) % (1.0-10.0) Eosinophils (%) (Auto) % (0.0-3.0) Basophils (%) (Auto) % (0.0-2.0) Differential Total Cells Counted 100 Neutrophils % (Manual) 93 % (45-75) H Lymphocytes % (Manual) 3 % (20-45) L Monocytes % (Manual) 4 % (1-10) Eosinophils % (Manual) 0 % (0-3) Basophils % (Manual) 0 % (0-2) Band Neutrophils 0 % (0-8) Platelet Estimate Adequate Platelet Morphology Normal Hypochromasia 1+ Anisocytosis 1+ Sodium Level 141 MMOL/L (136-145) Potassium Level 3.4 MMOL/L (3.5-5.1) L Chloride Level 100 MMOL/L (98-107) Carbon Dioxide Level 33 MMOL/L (21-32) H Anion Gap 8 mmol/L (5-15) Blood Urea Nitrogen 49 mg/dL (7-18) H Creatinine 4.8 MG/DL (0.55-1.30) H Estimat Glomerular Filtration Rate 15.3 mL/min (>60) Glucose Level 176 MG/DL (74-106) H Calcium Level 8.5 MG/DL (8.5-10.1) Phosphorus Level 3.5 MG/DL (2.5-4.9) Magnesium Level 1.9 MG/DL (1.8-2.4) Total Bilirubin 0.5 MG/DL (0.2-1.0) Aspartate Amino Transf (AST/SGOT) 79 U/L (15-37) H Alanine Aminotransferase (ALT/SGPT) 56 U/L (12-78) Alkaline Phosphatase 163 U/L (46-116) H Total Protein 6.5 G/DL (6.4-8.2) Albumin 1.8 G/DL (3.4-5.0) L Globulin 4.7 g/dL Albumin/Globulin Ratio 0.4 (1.0-2.7) L Plan Problems: (1) Septic shock Assessment & Plan: Patient in septic shock prior central line and pressors intubated on vent support in the intensive care unit tachycardic. Renal insufficiency requiring hemodialysis. Temporary hemodialysis catheter indicated and recommended Please see procedure note Dialysis as per nephrology IV antibiotics post per infectious disease Dressing changes as per protocol We will monitor site for hematoma or infection No further acute surgical intervention recommended at this time will follow with recommendations thank you for let me participate patient's care extubated improved downgraded discussed care plan with family consent obtained plan to change to tunneled cath thursday (2) Acute respiratory failure Assessment & Plan: DAILY ESTIMATED NEEDS: Needs based on Critical care, sepsis 75kg adj 22-28 kcals/kg [id number] total kcals 1.2-2 g protein/kg 90-150 g total protein 25-30 mL/kg 9416-2193 total fluid mLs NUTRITION DIAGNOSIS: Swallowing difficulty r/t resp status as evidenced by septic shock now s/p intubation, w/ NGT, NPO at this time. ENTERAL NUTRITION RECOMMENDATIONS: Nepro @40ml/hr x24 hrs + Prosource BID to provide 960ml, 78g + 22 g pro, 698ml free H2O - As medically appropriate, rec non oral feeds via NGT - Start Nepro @20ml/hr for 6 hrs. Advance as tolerated 10ml/hr q4-6 hrs to goal. - Add Prosource BID to better meet est pro needs - Flush per MD. 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
[2019-12-04] MEDS ORDERED: NS Irrig 1000ml ONE (14:24)
[2019-12-04] MEDS ORDERED: NS 275ml ONE (14:24)
--- NOTE | 2019-12-04 14:32 | Internal Med Progress Note ---
Subjective Date of Service: Dec 04, 2019 Physician Name Sidney Galaviz Attending Physician Cezar Ceja MD Current Medications Medications (Trade) Dose Ordered Sig/Valeriano Route PRN Reason Start Time Stop Time Status Last Admin Dose Admin Acetaminophen (Tylenol) 650 mg Q4H PRN NG Mild Pain/Temp > 100.5 12/03/19 21:15 01/02/20 21:14 12/04/19 00:47 Albuterol/ Ipratropium (Albuterol/ Ipratropium) 3 ml Q4H PRN HHN Shortness of Breath 12/03/19 21:16 12/08/19 21:15 Amlodipine Besylate (Norvasc) 2.5 mg DAILYPRN PRN NG sbp greater than 150 12/03/19 21:15 01/02/20 21:14 Carvedilol (Coreg) 12.5 mg EVERY 12 HOURS NG 12/03/19 22:00 01/02/20 21:59 12/04/19 09:37 Chlorhexidine Gluconate (Katia-Hex 2%) 1 applic DAILY@2000 TOPIC 12/04/19 20:00 12/25/19 19:59 Dextrose (Dextrose 50%) 25 ml Q30M PRN IV Hypoglycemia 12/03/19 21:30 12/24/19 13:29 Dextrose (Dextrose 50%) 50 ml Q30M PRN IV Hypoglycemia 12/03/19 21:30 12/24/19 13:29 Folic Acid (Folate) 5 mg DAILY GT 12/04/19 09:00 12/27/19 08:59 12/04/19 09:35 Heparin Sodium (Porcine) (Heparin 5000 units/ml) 5,000 units EVERY 12 HOURS SUBQ 12/03/19 22:00 01/02/20 21:59 12/03/19 22:25 Hydralazine HCl (Apresoline) 50 mg EVERY 6 HOURS GT 12/04/19 00:00 01/01/20 00:00 12/04/19 12:24 Insulin Aspart (NovoLOG) BEFORE MEALS AND HS SUBQ 12/03/19 21:14 01/02/20 21:13 12/04/19 06:40 Isosorbide Dinitrate (Isordil) 20 mg TID GT 12/04/19 09:00 01/01/20 08:59 12/04/19 12:25 Lansoprazole (Prevacid) 30 mg BID NG 12/04/19 09:00 12/30/19 17:59 12/04/19 09:37 Meropenem 500 mg/ Sodium Chloride 55 ml @ 110 mls/hr Q24H IVPB 12/04/19 12:00 12/06/19 13:00 12/04/19 12:23 Morphine Sulfate (Morphine Sulfate) 2 mg Q4H PRN IVP Severe Pain (Pain Scale 7-10) 12/03/19 21:17 12/10/19 21:16 Nitroglycerin (Ntg) 0.4 mg Q5M PRN SL Prn Chest Pain 12/03/19 21:17 01/02/20 21:16 Ondansetron HCl (Zofran) 4 mg Q6H PRN IVP Nausea & Vomiting 12/03/19 21:17 01/02/20 21:16 Polyethylene Glycol (Miralax) 17 gm DAILYPRN PRN NG Constipation 12/03/19 21:17 01/02/20 21:16 Promethazine HCl/ Codeine (Phenergan with Codeine) 5 ml Q4H PRN NG For Cough 12/03/19 21:17 01/02/20 21:16 Allergies: Coded Allergies: No Known Allergies (Unverified , 11/24/19) ROS Limited/Unobtainable: Yes Subjective 59 YO M admitted with respiratory failure. Cover for Int Med-Dr Ceja. JA Objective Last Vital Signs Date Time Temp Pulse Resp B/P (MAP) Pulse Ox O2 Delivery O2 Flow Rate FiO2 12/04/19 12:25 119/54 12/04/19 12:00 Nasal Cannula 5.0 Nasal Cannula 5.0 12/04/19 12:00 82 12/04/19 12:00 98.7 20 96 12/04/19 07:48 36 Laboratory Tests Test 12/04/19 04:05 White Blood Count 22.8 K/UL (4.8-10.8) *H Red Blood Count 2.68 M/UL (4.70-6.10) L Hemoglobin 7.8 G/DL (14.2-18.0) L Hematocrit 22.9 % (42.0-52.0) L Mean Corpuscular Volume 85 FL (80-99) Mean Corpuscular Hemoglobin 29.0 PG (27.0-31.0) Mean Corpuscular Hemoglobin Concent 34.0 G/DL (32.0-36.0) Red Cell Distribution Width 13.3 % (11.6-14.8) Platelet Count 217 K/UL (150-450) Mean Platelet Volume 5.4 FL (6.5-10.1) L Neutrophils (%) (Auto) % (45.0-75.0) Lymphocytes (%) (Auto) % (20.0-45.0) Monocytes (%) (Auto) % (1.0-10.0) Eosinophils (%) (Auto) % (0.0-3.0) Basophils (%) (Auto) % (0.0-2.0) Differential Total Cells Counted 100 Neutrophils % (Manual) 93 % (45-75) H Lymphocytes % (Manual) 3 % (20-45) L Monocytes % (Manual) 4 % (1-10) Eosinophils % (Manual) 0 % (0-3) Basophils % (Manual) 0 % (0-2) Band Neutrophils 0 % (0-8) Platelet Estimate Adequate Platelet Morphology Normal Hypochromasia 1+ Anisocytosis 1+ Sodium Level 141 MMOL/L (136-145) Potassium Level 3.4 MMOL/L (3.5-5.1) L Chloride Level 100 MMOL/L (98-107) Carbon Dioxide Level 33 MMOL/L (21-32) H Anion Gap 8 mmol/L (5-15) Blood Urea Nitrogen 49 mg/dL (7-18) H Creatinine 4.8 MG/DL (0.55-1.30) H Estimat Glomerular Filtration Rate 15.3 mL/min (>60) Glucose Level 176 MG/DL (74-106) H Calcium Level 8.5 MG/DL (8.5-10.1) Phosphorus Level 3.5 MG/DL (2.5-4.9) Magnesium Level 1.9 MG/DL (1.8-2.4) Total Bilirubin 0.5 MG/DL (0.2-1.0) Aspartate Amino Transf (AST/SGOT) 79 U/L (15-37) H Alanine Aminotransferase (ALT/SGPT) 56 U/L (12-78) Alkaline Phosphatase 163 U/L (46-116) H Total Protein 6.5 G/DL (6.4-8.2) Albumin 1.8 G/DL (3.4-5.0) L Globulin 4.7 g/dL Albumin/Globulin Ratio 0.4 (1.0-2.7) L Microbiology Date/Time Source Procedure Growth Status 12/02/19 12:50 Blood Blood Culture - Preliminary NO GROWTH AFTER 24 HOURS Resulted 12/02/19 12:35 Blood Blood Culture - Preliminary NO GROWTH AFTER 24 HOURS Resulted Intake and Output 12/03/19 12/04/19 19:00 07:00 Intake Total 555 ml 2630 ml Output Total 110 ml 30 ml Balance 445 ml 2600 ml Intake Free Water 150 ml IV Total 55 ml Tube Feeding 360 ml 480 ml Hemodialysis 2000 ml Other 140 ml Output Urine Total 110 ml 30 ml # Bowel Movements 1 Objective PHYSICAL EXAMINATION: GENERAL: The patient is a well-developed and well-nourished male, in moderate respiratory distress. HEENT: Eyes, pupils are equal and responsive to light and accommodation. Extraocular movements are intact. NECK: Supple without lymphadenopathy. CHEST: nasal canula; Mechanical breath sounds, otherwise without wheezes or rales. CARDIOVASCULAR: Regular rate. S1 and S2 normal without murmurs, rubs, or gallops. ABDOMEN: Soft, nontender, and nondistended. Positive bowel sounds. No evidence of hepatosplenomegaly. Currently, no rebound or guarding noted. EXTREMITIES: Negative for clubbing, cyanosis, or edema. RECTAL/GENITAL: Refused. NEUROLOGIC: Cranial nerves II through XII are grossly intact without focal deficits. Assessment/Plan Assessment/Plan ASSESSMENT: This is a 59-year-old male. 1. Respiratory failure. 2. Pneumonia. 3. Probable sepsis. 4. Diabetes type 2. 5. Hypertension. 6. Hypercholesterolemia. TREATMENT: 1. Respiratory failure/pneumonia. The patient is currently tolerating nasal canula in the intensive care unit. A Pulmonary consultation has been obtained with Dr. Brandy Milton. Sputum=ESBL E. Coli. ABX=meropenem. ID=Dr Souza Continue Tamiflu per ID=Dr Andrade. We will follow recommendations of Pulmonary. 2. Sepsis. Blood cultures=Staph Hominis. ABX=meropenem 3. Diabetes type 2. A NovoLog sliding scale has been instituted. 4. Hypertension. The patient is currently hypotensive. Hold antihypertensive medication. 5. Hypercholesterolemia. Continue atorvastatin as above. Sidney Galaviz MD Dec 04, 2019 14:32
--- NOTE | 2019-12-04 14:59 | Pulmonolgy Critical Care Note ---
Critical Care - Asmt/Plan Assessment/Plan: Pulmonary CCM Progress Note Critical Care - Asmt/Plan Problems: (1) Acute respiratory failure - improved (2) Septic shock (3) HCAP (healthcare-associated pneumonia) (4) Chronic systolic heart failure (5) Chronic kidney disease, stage 3 (6) Diabetes mellitus (7) History of hypertension (8) History of gout (9) History of left below knee amputation Respiratory: monitor respiratory rate, adjust FIO2, BiPAP PRN, CXR PRN Cardiac: continue to monitor HR/BP Gastrointestinal: continue feedings/current rate Endocrine: monitor blood sugar, continue sliding scale insulin Hematologic: monitor H/H, transfuse PRN Neurologic: PRN Morphine, keep patient comfortable Affect: PRN ativan Prophylaxis: Protonix Disposition: Tele Time Spent (Minutes): 40 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, 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, 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 Objective Vital Signs Noted Status: awake, interactive Condition: improving HEENT: atraumatic Lungs: CTAB Heart: HR/BP stable Abdomen: soft Extrem: edema improving Microbiology Date/Time Source Procedure Growth Status 11/29/19 13:20 Blood Blood Culture - Preliminary NO GROWTH AFTER 48 HOURS Resulted 11/29/19 13:20 Blood Blood Culture - Final Staph Hominis Ssp Hominis Complete Accucheck: 118 Critical Care - Subjective ROS Limited/Unobtainable: no Condition: improving EKG Rhythm: Sinus Rhythm FI02: NC Laboratory Tests Noted Critical Care - Objective Last 24 Hour Vital Signs Date Time Temp Pulse Resp B/P (MAP) Pulse Ox O2 Delivery O2 Flow Rate FiO2 12/04/19 12:25 119/54 12/04/19 12:24 119/54 12/04/19 12:00 Nasal Cannula 5.0 Nasal Cannula 5.0 12/04/19 12:00 5.0 12/04/19 12:00 82 12/04/19 12:00 98.7 83 20 119/54 (75) 96 12/04/19 09:37 89 130/61 12/04/19 09:36 130/61 12/04/19 08:00 99.0 89 20 130/61 (84) 100 12/04/19 08:00 88 12/04/19 08:00 5.0 12/04/19 08:00 Nasal Cannula 5.0 Nasal Cannula 5.0 12/04/19 07:48 98 Nasal Cannula 4.0 36 12/04/19 07:48 87 16 98 Nasal Cannula 4.0 36 12/04/19 06:39 122/48 12/04/19 04:00 Nasal Cannula 5.0 Nasal Cannula 5.0 12/04/19 04:00 86 12/04/19 04:00 99.6 88 20 122/48 (72) 96 12/04/19 04:00 5.0 12/04/19 00:46 134/64 12/04/19 00:00 5.0 12/04/19 00:00 100.2 88 20 134/64 (87) 95 12/04/19 00:00 88 12/04/19 00:00 Nasal Cannula 5.0 Nasal Cannula 5.0 12/03/19 22:26 84 123/51 12/03/19 20:00 Nasal Cannula 5.0 Nasal Cannula 5.0 12/03/19 20:00 98.4 87 26 123/51 (75) 95 12/03/19 20:00 5.0 12/03/19 20:00 84 12/03/19 19:00 86 23 122/46 (71) 92 12/03/19 19:00 95 Nasal Cannula 5.0 40 12/03/19 18:00 87 24 128/49 (75) 94 12/03/19 17:40 128/43 12/03/19 17:40 128/43 12/03/19 17:00 86 21 126/51 (76) 90 12/03/19 16:00 99.3 86 22 104/40 (61) 96 12/03/19 16:00 Nasal Cannula 5.0 Nasal Cannula 5.0 12/03/19 16:00 87 12/03/19 16:00 5.0 12/03/19 15:00 86 23 123/45 (71) 97 Micro: Microbiology Date/Time Source Procedure Growth Status 12/02/19 12:50 Blood Blood Culture - Preliminary NO GROWTH AFTER 24 HOURS Resulted 12/02/19 12:35 Blood Blood Culture - Preliminary NO GROWTH AFTER 24 HOURS Resulted Accucheck: 136 Critical Care - Subjective ROS Limited/Unobtainable: No Condition: improving IV Access: peripheral FI02: 36 Vent Support Breath Rate: 12 Vent Support Mode: BiLevel Vent Tidal Volume: 600 Sputum Amount: None PEEP: 5.0 PIP: 14 Tube Feeding Amount: 40 I&O: Intake and Output 12/03/19 12/04/19 19:00 07:00 Intake Total 555 ml 2630 ml Output Total 110 ml 30 ml Balance 445 ml 2600 ml Intake Free Water 150 ml IV Total 55 ml Tube Feeding 360 ml 480 ml Hemodialysis 2000 ml Other 140 ml Output Urine Total 110 ml 30 ml # Bowel Movements 1 ET-Tube: 7.5 ET Position: 24 Keshav Rodriguez MD Dec 04, 2019 14:59
[2019-12-04 16:00] VITALS: BP 117/47
--- NOTE | 2019-12-04 16:20 | NUR ---
NURSE NOTES: FAMILY AT BEDSIDE. PT COMFORTABLE, NO C.O PAIN OR SOB. 5L NC W/ HUMIDIFICATION. HOB30. BED ALARM ON. WILL CONTINUE TO MONITOR.
--- NOTE | 2019-12-04 16:48 | Cardiology Progress Note ---
Assessment/Plan Assessment/Plan 1. Respiratory failure, probably pneumonia. 2. chf acute systolic 3. History of aortic valve replacement per records but no surgical scar on the chest wall.(pt denies avr) 4. History of coronary artery disease, unknown details. 5. Abnormal cardiac enzymes likely secondary to demand 6. septic shock 7. renal failure 8. metabolic respiratory acidosis 9. ARDS better off bipap looks ok want to eat will have swallow eval in am abx hhn observe dialysis Subjective Cardiovascular: Denies: chest pain, lightheadedness, palpitations Respiratory: Reports: cough; Denies: shortness of breath Gastrointestinal/Abdominal: Denies: abdominal pain Genitourinary: Denies: burning Objective Last 24 Hour Vital Signs Date Time Temp Pulse Resp B/P (MAP) Pulse Ox O2 Delivery O2 Flow Rate FiO2 12/04/19 12:25 119/54 12/04/19 12:24 119/54 12/04/19 12:00 Nasal Cannula 5.0 Nasal Cannula 5.0 12/04/19 12:00 5.0 12/04/19 12:00 82 12/04/19 12:00 98.7 83 20 119/54 (75) 96 12/04/19 09:37 89 130/61 12/04/19 09:36 130/61 12/04/19 08:00 99.0 89 20 130/61 (84) 100 12/04/19 08:00 88 12/04/19 08:00 5.0 12/04/19 08:00 Nasal Cannula 5.0 Nasal Cannula 5.0 12/04/19 07:48 98 Nasal Cannula 4.0 36 12/04/19 07:48 87 16 98 Nasal Cannula 4.0 36 12/04/19 06:39 122/48 12/04/19 04:00 Nasal Cannula 5.0 Nasal Cannula 5.0 12/04/19 04:00 86 12/04/19 04:00 99.6 88 20 122/48 (72) 96 12/04/19 04:00 5.0 12/04/19 00:46 134/64 12/04/19 00:00 5.0 12/04/19 00:00 100.2 88 20 134/64 (87) 95 12/04/19 00:00 88 12/04/19 00:00 Nasal Cannula 5.0 Nasal Cannula 5.0 12/03/19 22:26 84 123/51 12/03/19 20:00 Nasal Cannula 5.0 Nasal Cannula 5.0 12/03/19 20:00 98.4 87 26 123/51 (75) 95 12/03/19 20:00 5.0 12/03/19 20:00 84 12/03/19 19:00 86 23 122/46 (71) 92 12/03/19 19:00 95 Nasal Cannula 5.0 40 12/03/19 18:00 87 24 128/49 (75) 94 12/03/19 17:40 128/43 12/03/19 17:40 128/43 12/03/19 17:00 86 21 126/51 (76) 90 General Appearance: no apparent distress, alert Neck: supple Cardiovascular: normal rate Respiratory/Chest: lungs clear Abdomen: normal bowel sounds, non tender, soft Extremities: no swelling Intake and Output 12/03/19 12/04/19 19:00 07:00 Intake Total 555 ml 2630 ml Output Total 110 ml 30 ml Balance 445 ml 2600 ml Intake Free Water 150 ml IV Total 55 ml Tube Feeding 360 ml 480 ml Hemodialysis 2000 ml Other 140 ml Output Urine Total 110 ml 30 ml # Bowel Movements 1 Laboratory Tests Test 12/04/19 04:05 White Blood Count 22.8 K/UL (4.8-10.8) *H Red Blood Count 2.68 M/UL (4.70-6.10) L Hemoglobin 7.8 G/DL (14.2-18.0) L Hematocrit 22.9 % (42.0-52.0) L Mean Corpuscular Volume 85 FL (80-99) Mean Corpuscular Hemoglobin 29.0 PG (27.0-31.0) Mean Corpuscular Hemoglobin Concent 34.0 G/DL (32.0-36.0) Red Cell Distribution Width 13.3 % (11.6-14.8) Platelet Count 217 K/UL (150-450) Mean Platelet Volume 5.4 FL (6.5-10.1) L Neutrophils (%) (Auto) % (45.0-75.0) Lymphocytes (%) (Auto) % (20.0-45.0) Monocytes (%) (Auto) % (1.0-10.0) Eosinophils (%) (Auto) % (0.0-3.0) Basophils (%) (Auto) % (0.0-2.0) Differential Total Cells Counted 100 Neutrophils % (Manual) 93 % (45-75) H Lymphocytes % (Manual) 3 % (20-45) L Monocytes % (Manual) 4 % (1-10) Eosinophils % (Manual) 0 % (0-3) Basophils % (Manual) 0 % (0-2) Band Neutrophils 0 % (0-8) Platelet Estimate Adequate Platelet Morphology Normal Hypochromasia 1+ Anisocytosis 1+ Sodium Level 141 MMOL/L (136-145) Potassium Level 3.4 MMOL/L (3.5-5.1) L Chloride Level 100 MMOL/L (98-107) Carbon Dioxide Level 33 MMOL/L (21-32) H Anion Gap 8 mmol/L (5-15) Blood Urea Nitrogen 49 mg/dL (7-18) H Creatinine 4.8 MG/DL (0.55-1.30) H Estimat Glomerular Filtration Rate 15.3 mL/min (>60) Glucose Level 176 MG/DL (74-106) H Calcium Level 8.5 MG/DL (8.5-10.1) Phosphorus Level 3.5 MG/DL (2.5-4.9) Magnesium Level 1.9 MG/DL (1.8-2.4) Total Bilirubin 0.5 MG/DL (0.2-1.0) Aspartate Amino Transf (AST/SGOT) 79 U/L (15-37) H Alanine Aminotransferase (ALT/SGPT) 56 U/L (12-78) Alkaline Phosphatase 163 U/L (46-116) H Total Protein 6.5 G/DL (6.4-8.2) Albumin 1.8 G/DL (3.4-5.0) L Globulin 4.7 g/dL Albumin/Globulin Ratio 0.4 (1.0-2.7) L Microbiology Date/Time Source Procedure Growth Status 12/02/19 12:50 Blood Blood Culture - Preliminary NO GROWTH AFTER 24 HOURS Resulted 12/02/19 12:35 Blood Blood Culture - Preliminary NO GROWTH AFTER 24 HOURS Resulted Antonio Byrd MD Dec 04, 2019 16:48
--- NOTE | 2019-12-04 19:30 | NUR ---
NURSE NOTES: Report received from [place] MIRZA . Patient awake oriented x3. On NC 5L with no respiratory distress.o2 saturation 97%. SR on monitor. vss. Afebrile.NGT feeding with Nepro at 40cc/hr with no residual. HOB elevated. Denies pain at this time. SOFIA Cath on right femoral is intact.IV to RH 20G ,RFA 20G intact, patent.Instructed call light for assistance. Verbalized understanding. bed locked in low position, bed alarm on. On contact precaution for ESBL in sputum.will continue to monitor patient.
[2019-12-04 20:00] VITALS: BP 117/66
[2019-12-04] MEDS: Dyna-Hex 2% Top Sol 2oz TOPIC SCH (21:42)
[2019-12-05] VITALS: BP 126/60
[2019-12-05] MEDS: HydrALAZINE 50mg tab GT SCH ×4 (00:32→18:45)
[2019-12-05] MEDS: Morphine Sulfate 2mg/ml Inj(IV/IM USE ONLY) IVP PRN (00:33)
--- NOTE | 2019-12-05 02:46 | NUR ---
NURSE NOTES: Patient asleep in bed comfortably. in no acute distress. Performed sponge bath using CHG. VSS. afebrile.no c/o pain at this time. Keep patient comfortable.
[2019-12-05 04:00] VITALS: BP 130/60
[2019-12-05 04:33] LABS: HEMATOCRIT 24.5 % (42.0-52.0); HEMOGLOBIN 8.4 G/DL (14.2-18.0); MEAN CORPUSCULAR VOLUME 85 FL (80-99); PLATELET COUNT 265 K/UL (150-450); RED BLOOD COUNT 2.86 M/UL (4.70-6.10); RED CELL DISTRIBUTION WIDTH 13.9 % (11.6-14.8); WHITE BLOOD COUNT 21.1 K/UL (4.8-10.8)
[2019-12-05 04:42] LABS: ANION GAP 10 mmol/L (5-15); BLOOD UREA NITROGEN 64 mg/dL (7-18); CALCIUM 8.3 MG/DL (8.5-10.1); CARBON DIOXIDE 32 MMOL/L (21-32); CHLORIDE 100 MMOL/L (98-107); CREATININE 6.4 MG/DL (0.55-1.30); SODIUM 141 MMOL/L (136-145)
[2019-12-05] MEDS: NovoLOG Insulin Flexpen SUBQ SCH ×4 (06:30→21:00)
--- NOTE | 2019-12-05 07:30 | NUR ---
NURSE NOTES: Received report from YUKI Workman. The patient is resting on the bed without acute distress or shortness of breath. The patient's bed in the lowest position, call light in reach, and fall and aspiration precaution reinforced. IV site intact and patent. R nare NGT intact but kept in NPO since midnight for tunnel catheter placement today per night nurse. The patient is on 5L NC per order and saturation within normal range. HD scheduled today. Will continue plan of care.
--- NOTE | 2019-12-05 07:33 | NUR ---
HAND-OFF: Report given to CARLENE PAYAN RN, using SBAR. NO APPARENT DISTRESS.
[2019-12-05 08:00] VITALS: BP 122/66
--- NOTE | 2019-12-05 08:00 | NUR ---
NURSE NOTES: Called [facility] for HD schedule today. Spoke with Lopez. Will wait for the call for confirmation of HD schedule today. Will continue plan of care.
--- NOTE | 2019-12-05 08:30 | NUR ---
NURSE NOTES: Heparin SC on hold prior to Tunnel catheter placement. Communicated with HD nurse, Mrs. Goodman regarding dialysis schedule today and was told to hold carvedilol and Isosorbide Dinitrate. Will administer other medications as ordered. Will continue plan of care.
[2019-12-05] MEDS: Heparin 5000 units/ml inj SUBQ SCH ×2 (09:00→21:10)
[2019-12-05] MEDS: Carvedilol 12.5mg tab NG SCH ×2 (09:00→21:09)
[2019-12-05 09:21] LABS: ALANINE AMINOTRANSFERASE 54 U/L (12-78); ALKALINE PHOSPHATASE 158 U/L (46-116); ASPARTATE AMINO TRANSFERASE 59 U/L (15-37); BILIRUBIN,DIRECT < 0.1 MG/DL (0.0-0.3); BILIRUBIN,TOTAL 0.4 MG/DL (0.2-1.0); PHOSPHORUS 5.3 MG/DL (2.5-4.9)
--- NOTE | 2019-12-05 10:12 | Nephrology Progress Note ---
Assessment/Plan Problem List: (1) ARF (acute renal failure) (2) Acute respiratory failure (3) Septic shock (4) Anemia (5) History of hypertension (6) Diabetes mellitus (7) Acute on chronic systolic heart failure Assessment: ej Fx 40 Assessment Acute renal failure- ? Underlying CKD Respiratory failure Anemia Sepsis / Shock ? Pneumonia DM HTN by history Gout left BKA Cardiomyopathy - Ej Fx 40% Plan Plan: due change the groin dialysis cath to permacath HD 12/01 ( 5th in a row), next 12/03 and 12/05 was transfused on coreg increase hydralazine discussed with ICU glass curvature gauger DC IV previously DC Hydrocortisone Antibiotics urine studies avoid nephrotoxics monitor renal parameters Anemia hairston per orders Subjective ROS Limited/Unobtainable: No Constitutional: Reports: malaise Objective Objective Last 24 Hour Vital Signs Date Time Temp Pulse Resp B/P (MAP) Pulse Ox O2 Delivery O2 Flow Rate FiO2 12/05/19 09:00 122/66 12/05/19 09:00 81 122/66 12/05/19 06:40 130/60 12/05/19 04:00 99.3 61 20 130/60 (83) 95 12/05/19 04:00 Nasal Cannula 5.0 Nasal Cannula 5.0 12/05/19 04:00 84 12/05/19 04:00 5.0 12/05/19 00:32 126/60 12/05/19 00:00 99.5 84 20 126/60 (82) 99 12/05/19 00:00 Nasal Cannula 5.0 Nasal Cannula 5.0 12/05/19 00:00 87 12/05/19 00:00 5.0 12/04/19 21:42 86 117/66 12/04/19 20:00 85 12/04/19 20:00 99.1 86 20 117/66 (83) 98 12/04/19 20:00 5.0 12/04/19 20:00 Nasal Cannula 5.0 Nasal Cannula 5.0 12/04/19 18:58 98 Nasal Cannula 4.0 36 12/04/19 18:44 117/47 12/04/19 18:44 117/47 12/04/19 16:00 5.0 12/04/19 16:00 99.2 83 20 117/47 (70) 97 12/04/19 16:00 Nasal Cannula 5.0 Nasal Cannula 5.0 12/04/19 16:00 87 12/04/19 12:25 119/54 12/04/19 12:24 119/54 12/04/19 12:00 Nasal Cannula 5.0 Nasal Cannula 5.0 12/04/19 12:00 5.0 12/04/19 12:00 82 12/04/19 12:00 98.7 83 20 119/54 (75) 96 Intake and Output 12/04/19 12/05/19 19:00 07:00 Intake Total 580 ml 300 ml Output Total 30 ml 100 ml Balance 550 ml 200 ml Intake Free Water 100 ml IV Total 110 ml Tube Feeding 440 ml 200 ml Other 30 ml Output Urine Total 30 ml 100 ml # Bowel Movements 4 Laboratory Tests 12/05/19 03:40: White Blood Count 21.1H, Red Blood Count 2.86L, Hemoglobin 8.4L, Hematocrit 24.5L, Mean Corpuscular Volume 85, Mean Corpuscular Hemoglobin 29.2, Mean Corpuscular Hemoglobin Concent 34.2, Red Cell Distribution Width 13.9, Platelet Count 265, Mean Platelet Volume 5.0L, Neutrophils (%) (Auto) , Lymphocytes (%) ( Auto) , Monocytes (%) (Auto) , Eosinophils (%) (Auto) , Basophils (%) (Auto) , Differential Total Cells Counted 100, Neutrophils % (Manual) 87H, Lymphocytes % (Manual) 6L, Monocytes % (Manual) 6, Eosinophils % (Manual) 1, Basophils % ( Manual) 0, Band Neutrophils 0, Platelet Estimate Adequate, Platelet Morphology Normal, Hypochromasia 2+, Anisocytosis 1+, Sodium Level 141, Potassium Level 4.0 , Chloride Level 100, Carbon Dioxide Level 32, Anion Gap 10, Blood Urea Nitrogen 64H, Creatinine 6.4H, Estimat Glomerular Filtration Rate 10.9, Glucose Level 140H, Uric Acid 5.0, Calcium Level 8.3L, Phosphorus Level 5.3H, Magnesium Level 2.3, Total Bilirubin 0.4, Direct Bilirubin < 0.1, Aspartate Amino Transf ( AST/SGOT) 59H, Alanine Aminotransferase (ALT/SGPT) 54, Alkaline Phosphatase 158H , Total Protein 6.1L, Albumin 2.0L Height (Feet): 5 Height (Inches): 8.00 Weight (Pounds): 239 General Appearance: no apparent distress Objective no change Tej Sidhu MD Dec 05, 2019 10:12
--- NOTE | 2019-12-05 11:00 | NUR ---
NURSE NOTES: Spoke with Dr. Bush to get clearance prior to tunnel cath placement due to the patient's elevated WBC and history of positive blood culture. Per Dr. Bush, hold tunnel cath placement as the patient is unstable from ID standpoint. Notified to Dr. Sidhu regarding the status. Notified to Wilner Rex (HD nurse) also. Will continue plan of care.
--- NOTE | 2019-12-05 11:31 | Infectious Diseases Prog Note ---
Assessment/Plan Assessment/Plan Assessment: Septic Shock- SP Pneumonia -12/01 CXR: probably unchanged bilateral diffuse interstitial and airspace disease. -11/30 sp cx:Interim marked worsening of bilateral pulmonary parenchymal disease, over one day -11/29 sp cx ESBL E.coli (S zosyn, Imipenem, bactrim) -11/24 u/a neg; ucx neg Bcx NTD influenza sc neg CXR: Bilateral dense consolidation, likely pneumonia. Pulmonary edema also possible. Correlate with clinical findings sp cx ordered,not done legionella ag urine neg S. hominis bacteremia- RIJ infection vs contamination - RIJ removed on 12/02 -11/27 Bcx 1/4 S. hominis; 11/29 Bcx 1/2 S. hominis (RIJ), NTD x2 (peripheral) Low grade fever Leukocytosis, increased, now improving ARDS Acute respiratory failure s/p intubation 11/24, sp extubation 11/29, now on bipap GANGA on CKD; now on HD 11/27 Elevated LFTs;improving Troponinemia Dm2 Gout s/p L BKA allergic rhinitis CAD s/p stent prosthetic AVR hx of esophagitis PVD chronic sCHF HLD HTN SNF resident Plan: - restart IV Vanco # 1 -Continue empiric Meropenem # 6/10 for ESBL E.coli PNA -12/01 SP IV Vancomycin #8, Tamiflu #7 -11/30 SP LEvaquin #7, Cefepime #7 -f/u cx -Monitor CBC/CMP, temperatures -f/u sp cx -ICU care -aspiration precautions -repeat Bcx x2 - removal of Chris cath ordered by Nephro discussed with RN not clear for perm cath placement yet Thank you for this consultation. Will continue to follow along with you. Subjective Allergies: Coded Allergies: No Known Allergies (Unverified , 11/24/19) Subjective comfortable low grade fever Cough and sputum Objective Vital Signs Last 24 Hour Vital Signs Date Time Temp Pulse Resp B/P (MAP) Pulse Ox O2 Delivery O2 Flow Rate FiO2 12/05/19 09:00 122/66 12/05/19 09:00 81 122/66 12/05/19 06:40 130/60 12/05/19 04:00 99.3 61 20 130/60 (83) 95 12/05/19 04:00 Nasal Cannula 5.0 Nasal Cannula 5.0 12/05/19 04:00 84 12/05/19 04:00 5.0 12/05/19 00:32 126/60 12/05/19 00:00 99.5 84 20 126/60 (82) 99 12/05/19 00:00 Nasal Cannula 5.0 Nasal Cannula 5.0 12/05/19 00:00 87 12/05/19 00:00 5.0 12/04/19 21:42 86 117/66 12/04/19 20:00 85 12/04/19 20:00 99.1 86 20 117/66 (83) 98 12/04/19 20:00 5.0 12/04/19 20:00 Nasal Cannula 5.0 Nasal Cannula 5.0 12/04/19 18:58 98 Nasal Cannula 4.0 36 12/04/19 18:44 117/47 12/04/19 18:44 117/47 12/04/19 16:00 5.0 12/04/19 16:00 99.2 83 20 117/47 (70) 97 12/04/19 16:00 Nasal Cannula 5.0 Nasal Cannula 5.0 12/04/19 16:00 87 12/04/19 12:25 119/54 12/04/19 12:24 119/54 12/04/19 12:00 Nasal Cannula 5.0 Nasal Cannula 5.0 12/04/19 12:00 5.0 12/04/19 12:00 82 12/04/19 12:00 98.7 83 20 119/54 (75) 96 Height (Feet): 5 Height (Inches): 8.00 Weight (Pounds): 239 Respiratory/Chest: lungs clear Cardiovascular: regular rhythm Abdomen: no organomegaly Microbiology Date/Time Source Procedure Growth Status 12/02/19 12:50 Blood Blood Culture - Preliminary NO GROWTH AFTER 24 HOURS Resulted 12/02/19 12:35 Blood Blood Culture - Preliminary NO GROWTH AFTER 24 HOURS Resulted Laboratory Tests Test 12/05/19 03:40 White Blood Count 21.1 K/UL (4.8-10.8) H Red Blood Count 2.86 M/UL (4.70-6.10) L Hemoglobin 8.4 G/DL (14.2-18.0) L Hematocrit 24.5 % (42.0-52.0) L Mean Corpuscular Volume 85 FL (80-99) Mean Corpuscular Hemoglobin 29.2 PG (27.0-31.0) Mean Corpuscular Hemoglobin Concent 34.2 G/DL (32.0-36.0) Red Cell Distribution Width 13.9 % (11.6-14.8) Platelet Count 265 K/UL (150-450) Mean Platelet Volume 5.0 FL (6.5-10.1) L Neutrophils (%) (Auto) % (45.0-75.0) Lymphocytes (%) (Auto) % (20.0-45.0) Monocytes (%) (Auto) % (1.0-10.0) Eosinophils (%) (Auto) % (0.0-3.0) Basophils (%) (Auto) % (0.0-2.0) Differential Total Cells Counted 100 Neutrophils % (Manual) 87 % (45-75) H Lymphocytes % (Manual) 6 % (20-45) L Monocytes % (Manual) 6 % (1-10) Eosinophils % (Manual) 1 % (0-3) Basophils % (Manual) 0 % (0-2) Band Neutrophils 0 % (0-8) Platelet Estimate Adequate Platelet Morphology Normal Hypochromasia 2+ Anisocytosis 1+ Sodium Level 141 MMOL/L (136-145) Potassium Level 4.0 MMOL/L (3.5-5.1) Chloride Level 100 MMOL/L (98-107) Carbon Dioxide Level 32 MMOL/L (21-32) Anion Gap 10 mmol/L (5-15) Blood Urea Nitrogen 64 mg/dL (7-18) H Creatinine 6.4 MG/DL (0.55-1.30) H Estimat Glomerular Filtration Rate 10.9 mL/min (>60) Glucose Level 140 MG/DL (74-106) H Uric Acid 5.0 MG/DL (2.6-7.2) Calcium Level 8.3 MG/DL (8.5-10.1) L Phosphorus Level 5.3 MG/DL (2.5-4.9) H Magnesium Level 2.3 MG/DL (1.8-2.4) Total Bilirubin 0.4 MG/DL (0.2-1.0) Direct Bilirubin < 0.1 MG/DL (0.0-0.3) Aspartate Amino Transf (AST/SGOT) 59 U/L (15-37) H Alanine Aminotransferase (ALT/SGPT) 54 U/L (12-78) Alkaline Phosphatase 158 U/L (46-116) H Total Protein 6.1 G/DL (6.4-8.2) L Albumin 2.0 G/DL (3.4-5.0) L Current Medications Medications (Trade) Dose Ordered Sig/Valeriano Route PRN Reason Start Time Stop Time Status Last Admin Dose Admin Acetaminophen (Tylenol) 650 mg Q4H PRN NG Mild Pain/Temp > 100.5 12/03/19 21:15 01/02/20 21:14 12/04/19 00:47 Albuterol/ Ipratropium (Albuterol/ Ipratropium) 3 ml Q4H PRN HHN Shortness of Breath 12/03/19 21:16 12/08/19 21:15 Amlodipine Besylate (Norvasc) 2.5 mg DAILYPRN PRN NG sbp greater than 150 12/03/19 21:15 01/02/20 21:14 Carvedilol (Coreg) 12.5 mg EVERY 12 HOURS NG 12/03/19 22:00 01/02/20 21:59 12/04/19 21:42 Chlorhexidine Gluconate (Katia-Hex 2%) 1 applic DAILY@2000 TOPIC 12/04/19 20:00 12/25/19 19:59 12/04/19 21:42 Dextrose (Dextrose 50%) 25 ml Q30M PRN IV Hypoglycemia 12/03/19 21:30 12/24/19 13:29 Dextrose (Dextrose 50%) 50 ml Q30M PRN IV Hypoglycemia 12/03/19 21:30 12/24/19 13:29 Folic Acid (Folate) 5 mg DAILY GT 12/04/19 09:00 12/27/19 08:59 12/05/19 09:39 Heparin Sodium (Porcine) (Heparin 5000 units/ml) 5,000 units EVERY 12 HOURS SUBQ 12/03/19 22:00 01/02/20 21:59 12/03/19 22:25 Hydralazine HCl (Apresoline) 50 mg EVERY 6 HOURS GT 12/04/19 00:00 01/01/20 00:00 12/05/19 06:40 Insulin Aspart (NovoLOG) BEFORE MEALS AND HS SUBQ 12/03/19 21:14 01/02/20 21:13 12/04/19 16:43 Isosorbide Dinitrate (Isordil) 20 mg TID GT 12/04/19 09:00 01/01/20 08:59 12/04/19 18:44 Lansoprazole (Prevacid) 30 mg BID NG 12/04/19 09:00 12/30/19 17:59 12/05/19 09:40 Meropenem 500 mg/ Sodium Chloride 55 ml @ 110 mls/hr Q24H IVPB 12/04/19 12:00 12/06/19 13:00 12/04/19 12:23 Morphine Sulfate (Morphine Sulfate) 2 mg Q4H PRN IVP Severe Pain (Pain Scale 7-10) 12/03/19 21:17 12/10/19 21:16 12/05/19 00:33 Nitroglycerin (Ntg) 0.4 mg Q5M PRN SL Prn Chest Pain 12/03/19 21:17 01/02/20 21:16 Ondansetron HCl (Zofran) 4 mg Q6H PRN IVP Nausea & Vomiting 12/03/19 21:17 01/02/20 21:16 Polyethylene Glycol (Miralax) 17 gm DAILYPRN PRN NG Constipation 12/03/19 21:17 01/02/20 21:16 Promethazine HCl/ Codeine (Phenergan with Codeine) 5 ml Q4H PRN NG For Cough 12/03/19 21:17 01/02/20 21:16 Gabe Bush MD Dec 05, 2019 11:31
--- NOTE | 2019-12-05 11:53 | Pulmonology Progress Note ---
Assessment/Plan Problems: (1) Acute respiratory failure (2) ESRD (end stage renal disease) (3) Septic shock (4) Chronic systolic heart failure (5) History of hypertension (6) Diabetes mellitus (7) History of left below knee amputation (8) History of gout Assessment/Plan repeat swallow study off bipapa for a few days titrate fio2 to sat of 92% check cultures abx as per ID Subjective ROS Limited/Unobtainable: No Interval Events: doing better Allergies: Coded Allergies: No Known Allergies (Unverified , 11/24/19) Objective Last 24 Hour Vital Signs Date Time Temp Pulse Resp B/P (MAP) Pulse Ox O2 Delivery O2 Flow Rate FiO2 12/05/19 09:00 122/66 12/05/19 09:00 81 122/66 12/05/19 06:40 130/60 12/05/19 04:00 99.3 61 20 130/60 (83) 95 12/05/19 04:00 Nasal Cannula 5.0 Nasal Cannula 5.0 12/05/19 04:00 84 12/05/19 04:00 5.0 12/05/19 00:32 126/60 12/05/19 00:00 99.5 84 20 126/60 (82) 99 12/05/19 00:00 Nasal Cannula 5.0 Nasal Cannula 5.0 12/05/19 00:00 87 12/05/19 00:00 5.0 12/04/19 21:42 86 117/66 12/04/19 20:00 85 12/04/19 20:00 99.1 86 20 117/66 (83) 98 12/04/19 20:00 5.0 12/04/19 20:00 Nasal Cannula 5.0 Nasal Cannula 5.0 12/04/19 18:58 98 Nasal Cannula 4.0 36 12/04/19 18:44 117/47 12/04/19 18:44 117/47 12/04/19 16:00 5.0 12/04/19 16:00 99.2 83 20 117/47 (70) 97 12/04/19 16:00 Nasal Cannula 5.0 Nasal Cannula 5.0 12/04/19 16:00 87 12/04/19 12:25 119/54 12/04/19 12:24 119/54 12/04/19 12:00 Nasal Cannula 5.0 Nasal Cannula 5.0 12/04/19 12:00 5.0 12/04/19 12:00 82 12/04/19 12:00 98.7 83 20 119/54 (75) 96 Intake and Output 12/04/19 12/05/19 19:00 07:00 Intake Total 580 ml 300 ml Output Total 30 ml 100 ml Balance 550 ml 200 ml Intake Free Water 100 ml IV Total 110 ml Tube Feeding 440 ml 200 ml Other 30 ml Output Urine Total 30 ml 100 ml # Bowel Movements 4 General Appearance: WD/WN HEENT: normocephalic, atraumatic Respiratory/Chest: chest wall non-tender, lungs clear Cardiovascular: normal peripheral pulses, normal rate Abdomen: normal bowel sounds, soft, non tender Genitourinary: normal external genitalia Extremities: no cyanosis Skin: no lesions Neurologic/Psychiatric: bricklayer II-XII grossly normal Microbiology Date/Time Source Procedure Growth Status 12/02/19 12:50 Blood Blood Culture - Preliminary NO GROWTH AFTER 24 HOURS Resulted 12/02/19 12:35 Blood Blood Culture - Preliminary NO GROWTH AFTER 24 HOURS Resulted Laboratory Tests 12/05/19 03:40: White Blood Count 21.1H, Red Blood Count 2.86L, Hemoglobin 8.4L, Hematocrit 24.5L, Mean Corpuscular Volume 85, Mean Corpuscular Hemoglobin 29.2, Mean Corpuscular Hemoglobin Concent 34.2, Red Cell Distribution Width 13.9, Platelet Count 265, Mean Platelet Volume 5.0L, Neutrophils (%) (Auto) , Lymphocytes (%) ( Auto) , Monocytes (%) (Auto) , Eosinophils (%) (Auto) , Basophils (%) (Auto) , Differential Total Cells Counted 100, Neutrophils % (Manual) 87H, Lymphocytes % (Manual) 6L, Monocytes % (Manual) 6, Eosinophils % (Manual) 1, Basophils % ( Manual) 0, Band Neutrophils 0, Platelet Estimate Adequate, Platelet Morphology Normal, Hypochromasia 2+, Anisocytosis 1+, Sodium Level 141, Potassium Level 4.0 , Chloride Level 100, Carbon Dioxide Level 32, Anion Gap 10, Blood Urea Nitrogen 64H, Creatinine 6.4H, Estimat Glomerular Filtration Rate 10.9, Glucose Level 140H, Uric Acid 5.0, Calcium Level 8.3L, Phosphorus Level 5.3H, Magnesium Level 2.3, Total Bilirubin 0.4, Direct Bilirubin < 0.1, Aspartate Amino Transf ( AST/SGOT) 59H, Alanine Aminotransferase (ALT/SGPT) 54, Alkaline Phosphatase 158H , Total Protein 6.1L, Albumin 2.0L Current Medications Medications (Trade) Dose Ordered Sig/Valeriano Route PRN Reason Start Time Stop Time Status Last Admin Dose Admin Acetaminophen (Tylenol) 650 mg Q4H PRN NG Mild Pain/Temp > 100.5 12/03/19 21:15 01/02/20 21:14 12/04/19 00:47 Albuterol/ Ipratropium (Albuterol/ Ipratropium) 3 ml Q4H PRN HHN Shortness of Breath 12/03/19 21:16 12/08/19 21:15 Amlodipine Besylate (Norvasc) 2.5 mg DAILYPRN PRN NG sbp greater than 150 12/03/19 21:15 01/02/20 21:14 Carvedilol (Coreg) 12.5 mg EVERY 12 HOURS NG 12/03/19 22:00 01/02/20 21:59 12/04/19 21:42 Chlorhexidine Gluconate (Katia-Hex 2%) 1 applic DAILY@2000 TOPIC 12/04/19 20:00 12/25/19 19:59 12/04/19 21:42 Dextrose (Dextrose 50%) 25 ml Q30M PRN IV Hypoglycemia 12/03/19 21:30 12/24/19 13:29 Dextrose (Dextrose 50%) 50 ml Q30M PRN IV Hypoglycemia 12/03/19 21:30 12/24/19 13:29 Folic Acid (Folate) 5 mg DAILY GT 12/04/19 09:00 12/27/19 08:59 12/05/19 09:39 Heparin Sodium (Porcine) (Heparin 5000 units/ml) 5,000 units EVERY 12 HOURS SUBQ 12/03/19 22:00 01/02/20 21:59 12/03/19 22:25 Hydralazine HCl (Apresoline) 50 mg EVERY 6 HOURS GT 12/04/19 00:00 01/01/20 00:00 12/05/19 06:40 Insulin Aspart (NovoLOG) BEFORE MEALS AND HS SUBQ 12/03/19 21:14 01/02/20 21:13 12/04/19 16:43 Isosorbide Dinitrate (Isordil) 20 mg TID GT 12/04/19 09:00 01/01/20 08:59 12/04/19 18:44 Lansoprazole (Prevacid) 30 mg BID NG 12/04/19 09:00 12/30/19 17:59 12/05/19 09:40 Meropenem 500 mg/ Sodium Chloride 55 ml @ 110 mls/hr Q24H IVPB 12/04/19 12:00 12/06/19 13:00 12/04/19 12:23 Morphine Sulfate (Morphine Sulfate) 2 mg Q4H PRN IVP Severe Pain (Pain Scale 7-10) 12/03/19 21:17 12/10/19 21:16 12/05/19 00:33 Nitroglycerin (Ntg) 0.4 mg Q5M PRN SL Prn Chest Pain 12/03/19 21:17 01/02/20 21:16 Ondansetron HCl (Zofran) 4 mg Q6H PRN IVP Nausea & Vomiting 12/03/19 21:17 01/02/20 21:16 Polyethylene Glycol (Miralax) 17 gm DAILYPRN PRN NG Constipation 12/03/19 21:17 01/02/20 21:16 Promethazine HCl/ Codeine (Phenergan with Codeine) 5 ml Q4H PRN NG For Cough 12/03/19 21:17 01/02/20 21:16 Vancomycin HCl (Vanco rx to dose) 1 ea DAILY PRN MISC Per rx protocol 12/05/19 11:45 01/04/20 11:44 Vancomycin/Sodium Chloride 275 ml @ 137.5 mls/ hr ONCE ONCE IVPB 12/05/19 14:00 12/05/19 15:59 Brandy Milton MD Dec 05, 2019 11:53
[2019-12-05 12:00] VITALS: BP 132/61
[2019-12-05] MEDS: Meropenem 500 MG in NS 55 ML IVPB SCH (12:05)
--- NOTE | 2019-12-05 12:30 | NUR ---
NURSE NOTES: Notified Dr. Sidhu regarding hold of tunnel catheter placement per Dr. Bush. Per Dr. Sidhu, do dialysis as scheduled via R femoral Chris cath and remove R femoral Chris cath by Dr. Ralph. Notified Dr. Ralph. Will continue plan of care.
--- NOTE | 2019-12-05 12:48 | Diagnostic Imaging Report ---
Indication: Cough Technique: One view of the chest Comparison: 12/02/2019 Findings: Previously demonstrated central venous catheter has been removed. Bilateral interstitial and airspace infiltrates versus edema persists, stable or perhaps slightly worse. Nasogastric tube is coiled in the gastric fundus. Impression: Bilateral interstitial and airspace infiltrates versus edema, stable or slightly worse over 3 days
--- NOTE | 2019-12-05 13:00 | NUR ---
NURSE NOTES: The patient is stable without acute distress or shortness of breath. Will continue plan of care.
--- NOTE | 2019-12-05 13:32 | Surgery Progress Note ---
Surgery Progress Note Subjective Procedure Performed Right femoral temporary hemodialysis catheter insertion Additional Comments discussed with ID hold on line placement plan to remove current line after HD plan for line holiday then placement of tunneled cath Objective Last 24 Hour Vital Signs Date Time Temp Pulse Resp B/P (MAP) Pulse Ox O2 Delivery O2 Flow Rate FiO2 12/05/19 12:04 132/61 12/05/19 12:00 5.0 12/05/19 12:00 98.3 83 20 132/61 (84) 95 12/05/19 12:00 132/61 12/05/19 12:00 80 12/05/19 09:00 122/66 12/05/19 09:00 81 122/66 12/05/19 08:00 97.5 81 18 122/66 (84) 100 12/05/19 08:00 5.0 12/05/19 06:40 130/60 12/05/19 04:00 99.3 61 20 130/60 (83) 95 12/05/19 04:00 Nasal Cannula 5.0 Nasal Cannula 5.0 12/05/19 04:00 84 12/05/19 04:00 5.0 12/05/19 00:32 126/60 12/05/19 00:00 99.5 84 20 126/60 (82) 99 12/05/19 00:00 Nasal Cannula 5.0 Nasal Cannula 5.0 12/05/19 00:00 87 12/05/19 00:00 5.0 12/04/19 21:42 86 117/66 12/04/19 20:00 85 12/04/19 20:00 99.1 86 20 117/66 (83) 98 12/04/19 20:00 5.0 12/04/19 20:00 Nasal Cannula 5.0 Nasal Cannula 5.0 12/04/19 18:58 98 Nasal Cannula 4.0 36 12/04/19 18:44 117/47 12/04/19 18:44 117/47 12/04/19 16:00 5.0 12/04/19 16:00 99.2 83 20 117/47 (70) 97 12/04/19 16:00 Nasal Cannula 5.0 Nasal Cannula 5.0 12/04/19 16:00 87 I&O Intake and Output 12/04/19 12/05/19 19:00 07:00 Intake Total 580 ml 300 ml Output Total 30 ml 100 ml Balance 550 ml 200 ml Intake Free Water 100 ml IV Total 110 ml Tube Feeding 440 ml 200 ml Other 30 ml Output Urine Total 30 ml 100 ml # Bowel Movements 4 Dressing: other Wound: other Drains: other Cardiovascular: RSR Respiratory: decreased breath sounds Abdomen: soft, non-tender, present bowel sounds Extremities: no cyanosis Laboratory Tests Test 12/05/19 03:40 White Blood Count 21.1 K/UL (4.8-10.8) H Red Blood Count 2.86 M/UL (4.70-6.10) L Hemoglobin 8.4 G/DL (14.2-18.0) L Hematocrit 24.5 % (42.0-52.0) L Mean Corpuscular Volume 85 FL (80-99) Mean Corpuscular Hemoglobin 29.2 PG (27.0-31.0) Mean Corpuscular Hemoglobin Concent 34.2 G/DL (32.0-36.0) Red Cell Distribution Width 13.9 % (11.6-14.8) Platelet Count 265 K/UL (150-450) Mean Platelet Volume 5.0 FL (6.5-10.1) L Neutrophils (%) (Auto) % (45.0-75.0) Lymphocytes (%) (Auto) % (20.0-45.0) Monocytes (%) (Auto) % (1.0-10.0) Eosinophils (%) (Auto) % (0.0-3.0) Basophils (%) (Auto) % (0.0-2.0) Differential Total Cells Counted 100 Neutrophils % (Manual) 87 % (45-75) H Lymphocytes % (Manual) 6 % (20-45) L Monocytes % (Manual) 6 % (1-10) Eosinophils % (Manual) 1 % (0-3) Basophils % (Manual) 0 % (0-2) Band Neutrophils 0 % (0-8) Platelet Estimate Adequate Platelet Morphology Normal Hypochromasia 2+ Anisocytosis 1+ Sodium Level 141 MMOL/L (136-145) Potassium Level 4.0 MMOL/L (3.5-5.1) Chloride Level 100 MMOL/L (98-107) Carbon Dioxide Level 32 MMOL/L (21-32) Anion Gap 10 mmol/L (5-15) Blood Urea Nitrogen 64 mg/dL (7-18) H Creatinine 6.4 MG/DL (0.55-1.30) H Estimat Glomerular Filtration Rate 10.9 mL/min (>60) Glucose Level 140 MG/DL (74-106) H Uric Acid 5.0 MG/DL (2.6-7.2) Calcium Level 8.3 MG/DL (8.5-10.1) L Phosphorus Level 5.3 MG/DL (2.5-4.9) H Magnesium Level 2.3 MG/DL (1.8-2.4) Total Bilirubin 0.4 MG/DL (0.2-1.0) Direct Bilirubin < 0.1 MG/DL (0.0-0.3) Aspartate Amino Transf (AST/SGOT) 59 U/L (15-37) H Alanine Aminotransferase (ALT/SGPT) 54 U/L (12-78) Alkaline Phosphatase 158 U/L (46-116) H Total Protein 6.1 G/DL (6.4-8.2) L Albumin 2.0 G/DL (3.4-5.0) L Plan Problems: (1) Septic shock Assessment & Plan: Patient in septic shock prior central line and pressors intubated on vent support in the intensive care unit tachycardic. Renal insufficiency requiring hemodialysis. Temporary hemodialysis catheter indicated and recommended Please see procedure note Dialysis as per nephrology IV antibiotics post per infectious disease Dressing changes as per protocol We will monitor site for hematoma or infection No further acute surgical intervention recommended at this time will follow with recommendations thank you for let me participate patient's care extubated improved downgraded discussed care plan with family consent obtained plan to change to tunneled cath thursday (2) Acute respiratory failure Assessment & Plan: DAILY ESTIMATED NEEDS: Needs based on Critical care, sepsis 75kg adj 22-28 kcals/kg 9755-5891 total kcals 1.2-2 g protein/kg 90-150 g total protein 25-30 mL/kg 2808-4048 total fluid mLs NUTRITION DIAGNOSIS: Swallowing difficulty r/t resp status as evidenced by septic shock now s/p intubation, w/ NGT, NPO at this time. ENTERAL NUTRITION RECOMMENDATIONS: Nepro @40ml/hr x24 hrs + Prosource BID to provide 960ml, 78g + 22 g pro, 698ml free H2O - As medically appropriate, rec non oral feeds via NGT - Start Nepro @20ml/hr for 6 hrs. Advance as tolerated 10ml/hr q4-6 hrs to goal. - Add Prosource BID to better meet est pro needs - Flush per MD. HOB over 30 degrees -------- ADDITIONAL RECOMMENDATIONS: 1) Tf recs as above, feed as medically able 2) Ad PROSOURCE VIA NGT BID to better meet est pro needs 3) Per SNF: 69inches tall, last wt of 210 lbs (2/3) -> rec weekly calibrated bed scale wts 4) GUN BARREL FINISHER eval upon extubation (3) Sepsis Assessment & Plan: discussed with ID hold on line placement plan to remove current line after HD plan for line holiday then placement of tunneled cath blood cx negative (4) History of left below knee amputation Assessment & Plan: Wound stable dressings intact elevate with Ranjit Horton Dec 05, 2019 13:32
--- NOTE | 2019-12-05 13:50 | NUR ---
HAND-OFF: Report given to YUKI Payne. The patient is resting on the bed without acute distress or shortness of breath. The patient's bed in the lowest position, call light in reach, and fall and aspiration precaution reinforced. R NGT intact and running formula per order. 5L NC per order. Informed Kerry regarding holding tunnel cath placement since not cleared by ID standpoint (Dr. Bush). Notified Dr. Sidhu, Dr. Ralph, Dr. Bush, Dr. Milton regarding the patient's status. The patient is scheduled for HD today, and HD nurse was notified. Endorsed plan of care.
[2019-12-05] MEDS ORDERED: Vancomycin 1.5gm/NS Premix IVPB ONE ×2 (14:00→20:00)
--- NOTE | 2019-12-05 14:00 | NUR ---
NURSE NOTES: Spoke with the pharmacist, Deborah, regarding Vancomycin1.5 gm that was scheduled on 1400. Informed that the patient will have dialysis today. Per Deborah, the pharmacist, she will adjust the time for Vancomycin infusion. Will continue plan of care.
--- NOTE | 2019-12-05 14:02 | NUR ---
RD ASSESSMENT & RECOMMENDATIONS SEE CARE ACTIVITY FOR COMPLETE ASSESSMENT DAILY ESTIMATED NEEDS: Needs based on Pulmonary, HD needs, wound 75kg adj 25-30 kcals/kg 3358-8862 total kcals 1.25-1.8 g protein/kg 94-135 g total protein 20-22 mL/kg 6098-5647 total fluid mLs NUTRITION DIAGNOSIS: * Swallowing difficulty r/t resp status as evidenced by septic, now extubated, on NGT feeding, pending PHOTOCOMPOSING MACHINE OPERATOR re-evaluation. * Increase kcal/prot needs R/T renal failure, wound healing as evidenced by pt on HD, pending perma cath placement, admitted w/ partial thickness wound @ sacrum. CURRENT TF:Nepro @ 40ml/hr x24 hrs + Prosource PO DIET RECOMMENDATIONS: WHEN SAFE FOR ORAL DIET: renal, ccho med/ texture per PHOTOCOMPOSING MACHINE OPERATOR ENTERAL NUTRITION RECOMMENDATIONS: Nepro @ 45ml/hr x24 hrs + Prosource QD to provide 1080ml, 1944kcal, 87+11g prot, 785ml free water - Increase goal rate to 45ml/hr x 24 hrs - Add Prosource QD to better meet est pro needs - Flush per MD. HOB over 30 degrees ADDITIONAL RECOMMENDATIONS: 1) Per SNF: 69inches tall, last wt of 210 lbs (2/3) -> rec weekly calibrated bed scale wts 2) Monitor for continuity of HD: first HD on 11/27 now pending permacath 3) Monitor for ability for oral diet: PHOTOCOMPOSING MACHINE OPERATOR eval pending 4) Wound healing: Add Juan 1pkt BID 5) Monitor lytes
[2019-12-05 16:00] VITALS: BP 132/61
--- NOTE | 2019-12-05 16:01 | NUR ---
INSURANCE REVIEW FAXED TO [facility] DEPT [phone] AUTH# [id number] NCM: JARRED GONSALVES FAX ALL CLINICALS TO: [phone]
--- NOTE | 2019-12-05 16:52 | NUR ---
ASSOCIATE PROFESSOR OF EDUCATIONROASTMASTER SI; SEPSIS T. 97.5 HR 87 RR 18 B/P 132/61 NC 5L WBC 21.1 BUN 64 CR 6.4 AST 59 ALK PHOS 158 CXR=Bilateral interstitial and airspace infiltrates versus edema, stable or slightly worse over 3 days. IS: VANCO IV MEROPENEM IV HEPARIN SUBC STEP DOWN STATUS
--- NOTE | 2019-12-05 19:29 | NUR ---
NURSE NOTES: report given to pamela vu
--- NOTE | 2019-12-05 19:30 | NUR ---
NURSE NOTES: Received pt AO x4, GRIMM x4 , on 5l/nc resp. even and spont, occ coughing and able to suction himself with yankuer. Tolerating NGT fdg Nepro 1.8 at 40cc/hr. No residuals. Rt femoral with Chris cath with drsg dry and intact. was just dialyzed today 2L out. Pt with quiñones cath with minimal output . Mds are aware.. SR on the monitor. Bp stable. Instructed to cough out phlegm. pt is compliant. Will continue to monitor.
--- NOTE | 2019-12-05 19:31 | Internal Med Progress Note ---
Subjective Date of Service: Dec 05, 2019 Physician Name GalavizSidney Attending Physician Cezar Ceja MD Current Medications Medications (Trade) Dose Ordered Sig/Valeriano Route PRN Reason Start Time Stop Time Status Last Admin Dose Admin Acetaminophen (Tylenol) 650 mg Q4H PRN NG Mild Pain/Temp > 100.5 12/03/19 21:15 01/02/20 21:14 12/04/19 00:47 Albuterol/ Ipratropium (Albuterol/ Ipratropium) 3 ml Q4H PRN HHN Shortness of Breath 12/03/19 21:16 12/08/19 21:15 Amlodipine Besylate (Norvasc) 2.5 mg DAILYPRN PRN NG sbp greater than 150 12/03/19 21:15 01/02/20 21:14 Carvedilol (Coreg) 12.5 mg EVERY 12 HOURS NG 12/03/19 22:00 01/02/20 21:59 12/04/19 21:42 Chlorhexidine Gluconate (Katia-Hex 2%) 1 applic DAILY@2000 TOPIC 12/04/19 20:00 12/25/19 19:59 12/04/19 21:42 Dextrose (Dextrose 50%) 25 ml Q30M PRN IV Hypoglycemia 12/03/19 21:30 12/24/19 13:29 Dextrose (Dextrose 50%) 50 ml Q30M PRN IV Hypoglycemia 12/03/19 21:30 12/24/19 13:29 Folic Acid (Folate) 5 mg DAILY GT 12/04/19 09:00 12/27/19 08:59 12/05/19 09:39 Heparin Sodium (Porcine) (Heparin 5000 units/ml) 5,000 units EVERY 12 HOURS SUBQ 12/03/19 22:00 01/02/20 21:59 12/03/19 22:25 Hydralazine HCl (Apresoline) 50 mg EVERY 6 HOURS GT 12/04/19 00:00 01/01/20 00:00 12/05/19 18:45 Insulin Aspart (NovoLOG) BEFORE MEALS AND HS SUBQ 12/03/19 21:14 01/02/20 21:13 12/04/19 16:43 Isosorbide Dinitrate (Isordil) 20 mg TID GT 12/04/19 09:00 01/01/20 08:59 12/05/19 18:44 Lansoprazole (Prevacid) 30 mg BID NG 12/04/19 09:00 12/30/19 17:59 12/05/19 18:44 Meropenem 500 mg/ Sodium Chloride 55 ml @ 110 mls/hr Q24H IVPB 12/04/19 12:00 12/06/19 13:00 12/05/19 12:05 Morphine Sulfate (Morphine Sulfate) 2 mg Q4H PRN IVP Severe Pain (Pain Scale 7-10) 12/03/19 21:17 12/10/19 21:16 12/05/19 00:33 Nitroglycerin (Ntg) 0.4 mg Q5M PRN SL Prn Chest Pain 12/03/19 21:17 01/02/20 21:16 Ondansetron HCl (Zofran) 4 mg Q6H PRN IVP Nausea & Vomiting 12/03/19 21:17 01/02/20 21:16 Polyethylene Glycol (Miralax) 17 gm DAILYPRN PRN NG Constipation 12/03/19 21:17 01/02/20 21:16 Promethazine HCl/ Codeine (Phenergan with Codeine) 5 ml Q4H PRN NG For Cough 12/03/19 21:17 01/02/20 21:16 Vancomycin HCl (Vanco rx to dose) 1 ea DAILY PRN MISC Per rx protocol 12/05/19 11:45 01/04/20 11:44 Vancomycin/Sodium Chloride 275 ml @ 137.5 mls/ hr ONCE ONCE IVPB 12/05/19 20:00 12/05/19 21:59 Allergies: Coded Allergies: No Known Allergies (Unverified , 11/24/19) ROS Limited/Unobtainable: No Constitutional: Reports: no symptoms HEENT: Reports: no symptoms Cardiovascular: Reports: no symptoms Respiratory: Reports: no symptoms Gastrointestinal/Abdominal: Reports: no symptoms, poor appetite Genitourinary: Reports: no symptoms Neurologic/Psychiatric: Reports: no symptoms Subjective 59 YO M admitted with respiratory failure. Cover for Int Qamar-Dr Ceja. JA Objective Last Vital Signs Date Time Temp Pulse Resp B/P (MAP) Pulse Ox O2 Delivery O2 Flow Rate FiO2 12/05/19 18:45 130/59 12/05/19 16:00 5.0 12/05/19 16:00 98.3 83 20 95 12/05/19 16:00 Nasal Cannula Nasal Cannula 12/05/19 09:02 36 Laboratory Tests Test 12/05/19 03:40 White Blood Count 21.1 K/UL (4.8-10.8) H Red Blood Count 2.86 M/UL (4.70-6.10) L Hemoglobin 8.4 G/DL (14.2-18.0) L Hematocrit 24.5 % (42.0-52.0) L Mean Corpuscular Volume 85 FL (80-99) Mean Corpuscular Hemoglobin 29.2 PG (27.0-31.0) Mean Corpuscular Hemoglobin Concent 34.2 G/DL (32.0-36.0) Red Cell Distribution Width 13.9 % (11.6-14.8) Platelet Count 265 K/UL (150-450) Mean Platelet Volume 5.0 FL (6.5-10.1) L Neutrophils (%) (Auto) % (45.0-75.0) Lymphocytes (%) (Auto) % (20.0-45.0) Monocytes (%) (Auto) % (1.0-10.0) Eosinophils (%) (Auto) % (0.0-3.0) Basophils (%) (Auto) % (0.0-2.0) Differential Total Cells Counted 100 Neutrophils % (Manual) 87 % (45-75) H Lymphocytes % (Manual) 6 % (20-45) L Monocytes % (Manual) 6 % (1-10) Eosinophils % (Manual) 1 % (0-3) Basophils % (Manual) 0 % (0-2) Band Neutrophils 0 % (0-8) Platelet Estimate Adequate Platelet Morphology Normal Hypochromasia 2+ Anisocytosis 1+ Sodium Level 141 MMOL/L (136-145) Potassium Level 4.0 MMOL/L (3.5-5.1) Chloride Level 100 MMOL/L (98-107) Carbon Dioxide Level 32 MMOL/L (21-32) Anion Gap 10 mmol/L (5-15) Blood Urea Nitrogen 64 mg/dL (7-18) H Creatinine 6.4 MG/DL (0.55-1.30) H Estimat Glomerular Filtration Rate 10.9 mL/min (>60) Glucose Level 140 MG/DL (74-106) H Uric Acid 5.0 MG/DL (2.6-7.2) Calcium Level 8.3 MG/DL (8.5-10.1) L Phosphorus Level 5.3 MG/DL (2.5-4.9) H Magnesium Level 2.3 MG/DL (1.8-2.4) Total Bilirubin 0.4 MG/DL (0.2-1.0) Direct Bilirubin < 0.1 MG/DL (0.0-0.3) Aspartate Amino Transf (AST/SGOT) 59 U/L (15-37) H Alanine Aminotransferase (ALT/SGPT) 54 U/L (12-78) Alkaline Phosphatase 158 U/L (46-116) H Total Protein 6.1 G/DL (6.4-8.2) L Albumin 2.0 G/DL (3.4-5.0) L Intake and Output 12/04/19 12/05/19 19:00 07:00 Intake Total 580 ml 300 ml Output Total 30 ml 100 ml Balance 550 ml 200 ml Intake Free Water 100 ml IV Total 110 ml Tube Feeding 440 ml 200 ml Other 30 ml Output Urine Total 30 ml 100 ml # Bowel Movements 4 Objective PHYSICAL EXAMINATION: GENERAL: The patient is a well-developed and well-nourished male, in moderate respiratory distress. HEENT: Eyes, pupils are equal and responsive to light and accommodation. Extraocular movements are intact. NECK: Supple without lymphadenopathy. CHEST: nasal canula; Mechanical breath sounds, otherwise without wheezes or rales. CARDIOVASCULAR: Regular rate. S1 and S2 normal without murmurs, rubs, or gallops. ABDOMEN: Soft, nontender, and nondistended. Positive bowel sounds. No evidence of hepatosplenomegaly. Currently, no rebound or guarding noted. EXTREMITIES: Negative for clubbing, cyanosis, or edema. RECTAL/GENITAL: Refused. NEUROLOGIC: Cranial nerves II through XII are grossly intact without focal deficits. Assessment/Plan Assessment/Plan ASSESSMENT: This is a 59-year-old male. 1. Respiratory failure. 2. Pneumonia. 3. Probable sepsis. 4. Diabetes type 2. 5. Hypertension. 6. Hypercholesterolemia. TREATMENT: 1. Respiratory failure/pneumonia. The patient is currently tolerating nasal canula in the intensive care unit. A Pulmonary consultation has been obtained with Dr. Brandy Milton. Sputum=ESBL E. Coli. ABX=meropenem and vanco. ID=Dr Souza Continue Tamiflu per ID=Dr Andrade. We will follow recommendations of Pulmonary. 2. Sepsis. Blood cultures=Staph Hominis. ABX=meropenem and vanco 3. Diabetes type 2. A NovoLog sliding scale has been instituted. 4. Hypertension. The patient is currently hypotensive. Hold antihypertensive medication. 5. Hypercholesterolemia. Continue atorvastatin as above. Sidney Galaviz MD Dec 05, 2019 19:31
--- NOTE | 2019-12-05 19:45 | NUR ---
NURSE NOTES: Pt has stage 2 pressure sore sacral area, covered with optifoam dry and intact. On p200 mattress, Turned q 2hrs with good skin care done.
[2019-12-05 20:00] VITALS: BP 124/55
[2019-12-05] MEDS: Dyna-Hex 2% Top Sol 2oz TOPIC SCH (20:05)
--- NOTE | 2019-12-05 22:00 | NUR ---
NURSE NOTES: Pt repositioned for comfort and prevention for further occurrence of wounds.
--- NOTE | 2019-12-05 23:20 | NUR ---
NURSE NOTES: Received pt from YUKI West. Pt is observed resting in bed, sleeping but easily arousable. Pt noted to be able to make needs known, no signs or symptoms of pain noted upon physical assessment. Pt is currently on 5L NC with no s/sx of respiratory distress noted. Pt remains SR with a HR of 83 noted and no s/sx of cardiac distress noted. R hand 20G IV catheter noted which remains asymptomatic, intact and patent. R femoral virgilio catheter noted which remains intact; dressing is clean and dry. Skin alterations noted and diagnostics reviewed. Aspiration precautions maintained. Pt noted to have failed swallow eval; NG tube noted which remains intact, patent and infusing Nepro as prescribed. Cruz catheter noted which remains patent and draining yellow urine to gravity. Pt noted to be oliguric. Pt remains resting in bed; bed remains in lowest position with safety wheels engaged, call light within reach, side rails up x3 and bed alarm activated. Will continue plan of care. Will continue to monitor.
--- NOTE | 2019-12-05 23:51 | NUR ---
HAND-OFF: Report given to Khalida Pérez for continuity of care..
[2019-12-06] VITALS: BP 132/63
[2019-12-06] MEDS: HydrALAZINE 50mg tab GT SCH ×4 (00:16→17:15)
--- NOTE | 2019-12-06 02:30 | NUR ---
NURSE NOTES: Pt was provided with a bed bath, linen change and oral care. L FA 20G IV catheter placed on first attempt without incident. Previous IV catheter discontinued per protocol after 72 hours. Pt tolerated care well and remains sleeping in bed. Bed remains in lowest position with safety wheels engaged, call light within reach, bed alarm activated and side rails up x3. Will continue to monitor.
[2019-12-06 04:00] VITALS: BP 112/62
[2019-12-06 04:37] LABS: BASOPHILS % (AUTO) 0.4 % (0.0-2.0); EOSINOPHILS % (AUTO) 2.2 % (0.0-3.0); HEMATOCRIT 25.7 % (42.0-52.0); HEMOGLOBIN 8.3 G/DL (14.2-18.0); LYMPHOCYTES % (AUTO) 8.6 % (20.0-45.0); MEAN CORPUSCULAR VOLUME 86 FL (80-99); MONOCYTES % (AUTO) 5.2 % (1.0-10.0); NEUTROPHILS % (AUTO) 83.7 % (45.0-75.0); PLATELET COUNT 298 K/UL (150-450); RED BLOOD COUNT 2.99 M/UL (4.70-6.10); RED CELL DISTRIBUTION WIDTH 15.5 % (11.6-14.8); WHITE BLOOD COUNT 16.7 K/UL (4.8-10.8)
[2019-12-06 05:13] LABS: ANION GAP 9 mmol/L (5-15); BLOOD UREA NITROGEN 55 mg/dL (7-18); CALCIUM 8.6 MG/DL (8.5-10.1); CARBON DIOXIDE 31 MMOL/L (21-32); CHLORIDE 99 MMOL/L (98-107); CREATININE 5.7 MG/DL (0.55-1.30); SODIUM 139 MMOL/L (136-145)
[2019-12-06] MEDS: NovoLOG Insulin Flexpen SUBQ SCH ×4 (05:51→21:00)
--- NOTE | 2019-12-06 07:10 | NUR ---
HAND-OFF: Report given to YUKI Andrew. Pt remains stable at this time.
--- NOTE | 2019-12-06 07:20 | NUR ---
NURSE NOTES: Received report from YUKI Simpson. The patient is resting on the bed without acute distress or shortness of breath. The patient's bed in the lowest position, call light in reach, and fall and aspiration precaution reinforced. IV site intact and patent. 5L NC for oxygen therapy per order. R nare NGT intact but feeding put on hold for possible tunnel cath placement today. Notified Dr. Ralph regarding Dr. Sidhu's order for removal of R femoral virgilio cath. Dr. Ralph at the bedside with primary nurse and removed R femoral virgilio cath and tip sent for culture. Dr. Bush contacted for clearance for tunnel cath placement today but did not clear the patient today. Will continue plan of care.
[2019-12-06 08:00] VITALS: BP 125/69
--- NOTE | 2019-12-06 08:30 | NUR ---
NURSE NOTES: Confirmed with laboratory department whether the culture specimen for R femoral virgilio cath received properly. Per laboratory personnel, they received proper specimen. Will continue plan of care.
[2019-12-06] MEDS ORDERED: Tubing IV Secondary IV ONE (08:56)
[2019-12-06] MEDS ORDERED: Sterile Water Irrig 1000ml IRRIG ONE (08:56)
[2019-12-06] MEDS ORDERED: NS 275ml ONE (08:56)
--- NOTE | 2019-12-06 09:00 | NUR ---
NURSE NOTES: Dr. Sidhu at the bedside assessed the patient. Dr. Sidhu ordered blood culture today so that the patient can be ready to place tunnel cath as soon as possible under Dr. Bush's clearance. Per Dr. Sidhu no new order at this time. The patient is stable without acute distress or shortness of breath. Will continue plan of care.
[2019-12-06] MEDS: Carvedilol 12.5mg tab NG SCH ×2 (09:05→21:44)
[2019-12-06] MEDS: Heparin 5000 units/ml inj SUBQ SCH ×2 (09:07→21:00)
--- NOTE | 2019-12-06 10:05 | Surgery Progress Note ---
Surgery Progress Note Subjective Procedure Performed Right femoral temporary hemodialysis catheter removal Additional Comments No acute events. Line removed. Labs noted. Plan for new line placement in a few days Objective Last 24 Hour Vital Signs Date Time Temp Pulse Resp B/P (MAP) Pulse Ox O2 Delivery O2 Flow Rate FiO2 12/06/19 09:05 125/69 12/06/19 09:05 80 125/69 12/06/19 07:00 99 Nasal Cannula 5.0 40 12/06/19 04:00 Nasal Cannula 5.0 Nasal Cannula 5.0 12/06/19 04:00 5.0 12/06/19 04:00 99.2 84 22 112/62 (79) 98 12/06/19 03:56 85 12/06/19 00:16 137/72 12/06/19 00:00 98.8 83 24 132/63 (86) 94 12/06/19 00:00 5.0 12/06/19 00:00 Nasal Cannula 5.0 Nasal Cannula 5.0 12/05/19 23:27 82 12/05/19 21:09 86 107/42 12/05/19 20:53 96 Nasal Cannula 4.0 36 12/05/19 20:00 86 12/05/19 20:00 5.0 12/05/19 20:00 98.9 86 24 124/55 (78) 98 12/05/19 20:00 Nasal Cannula 5.0 Nasal Cannula 5.0 12/05/19 18:45 130/59 12/05/19 18:44 130/59 12/05/19 16:00 5.0 12/05/19 16:00 98.3 83 20 132/61 (84) 95 12/05/19 16:00 79 12/05/19 16:00 Nasal Cannula 5.0 Nasal Cannula 5.0 12/05/19 12:04 132/61 12/05/19 12:00 Nasal Cannula 5.0 Nasal Cannula 5.0 12/05/19 12:00 5.0 12/05/19 12:00 98.3 83 20 132/61 (84) 95 12/05/19 12:00 132/61 12/05/19 12:00 80 I&O Intake and Output 12/05/19 12/06/19 19:00 07:00 Intake Total 2280 ml 230 ml Output Total 120 ml Balance 2160 ml 230 ml Intake Free Water 40 ml 70 ml Tube Feeding 240 ml 160 ml Hemodialysis 2000 ml Output Urine Total 120 ml Dressing: dry Wound: clean Cardiovascular: RSR Respiratory: clear Abdomen: soft, flat, non-tender, present bowel sounds Extremities: no edema, no tenderness Laboratory Tests Test 12/06/19 03:25 White Blood Count 16.7 K/UL (4.8-10.8) H Red Blood Count 2.99 M/UL (4.70-6.10) L Hemoglobin 8.3 G/DL (14.2-18.0) L Hematocrit 25.7 % (42.0-52.0) L Mean Corpuscular Volume 86 FL (80-99) Mean Corpuscular Hemoglobin 27.7 PG (27.0-31.0) Mean Corpuscular Hemoglobin Concent 32.2 G/DL (32.0-36.0) Red Cell Distribution Width 15.5 % (11.6-14.8) H Platelet Count 298 K/UL (150-450) Mean Platelet Volume 7.7 FL (6.5-10.1) Neutrophils (%) (Auto) 83.7 % (45.0-75.0) H Lymphocytes (%) (Auto) 8.6 % (20.0-45.0) L Monocytes (%) (Auto) 5.2 % (1.0-10.0) Eosinophils (%) (Auto) 2.2 % (0.0-3.0) Basophils (%) (Auto) 0.4 % (0.0-2.0) Sodium Level 139 MMOL/L (136-145) Potassium Level 4.0 MMOL/L (3.5-5.1) Chloride Level 99 MMOL/L (98-107) Carbon Dioxide Level 31 MMOL/L (21-32) Anion Gap 9 mmol/L (5-15) Blood Urea Nitrogen 55 mg/dL (7-18) H Creatinine 5.7 MG/DL (0.55-1.30) H Estimat Glomerular Filtration Rate 12.5 mL/min (>60) Glucose Level 162 MG/DL (74-106) H Calcium Level 8.6 MG/DL (8.5-10.1) Plan Problems: (1) Septic shock Assessment & Plan: Patient in septic shock prior central line and pressors intubated on vent support in the intensive care unit tachycardic. Renal insufficiency requiring hemodialysis. Temporary hemodialysis catheter indicated and recommended Please see procedure note Dialysis as per nephrology IV antibiotics post per infectious disease Dressing changes as per protocol We will monitor site for hematoma or infection No further acute surgical intervention recommended at this time will follow with recommendations thank you for let me participate patient's care extubated improved downgraded discussed care plan with family consent obtained plan to change to tunneled cath thursday (2) Acute respiratory failure Assessment & Plan: DAILY ESTIMATED NEEDS: Needs based on Critical care, sepsis 75kg adj 22-28 kcals/kg 1126-3571 total kcals 1.2-2 g protein/kg 90-150 g total protein 25-30 mL/kg 5705-8280 total fluid mLs NUTRITION DIAGNOSIS: Swallowing difficulty r/t resp status as evidenced by septic shock now s/p intubation, w/ NGT, NPO at this time. ENTERAL NUTRITION RECOMMENDATIONS: Nepro @40ml/hr x24 hrs + Prosource BID to provide 960ml, 78g + 22 g pro, 698ml free H2O - As medically appropriate, rec non oral feeds via NGT - Start Nepro @20ml/hr for 6 hrs. Advance as tolerated 10ml/hr q4-6 hrs to goal. - Add Prosource BID to better meet est pro needs - Flush per . HOB over 30 degrees -------- ADDITIONAL RECOMMENDATIONS: 1) Tf recs as above, feed as medically able 2) Ad PROSOURCE VIA NGT BID to better meet est pro needs 3) Per SNF: 69inches tall, last wt of 210 lbs (2/3) -> rec weekly calibrated bed scale wts 4) RECEIVABLE MANAGER eval upon extubation (3) Sepsis Assessment & Plan: discussed with ID hold on line placement Line removed plan for line holiday then placement of tunneled cath blood cx negative (4) History of left below knee amputation Assessment & Plan: Wound stable dressings intact elevate with Ranjit Horton Dec 06, 2019 10:05
--- NOTE | 2019-12-06 10:05 | Operative Note - PDOC ---
Operative Note Operative Note Pre-op Diagnosis: Sepsis, acute renal insufficiency requiring temporary hemodialysis Procedure: Right femoral temporary hemodialysis catheter removal Post-op Diagnosis: same as pre-op Surgeon: Ranjit Ralph MD Anesthesia: other Specimen: none Complications: none Condition: stable Fluids: See records Estimated Blood Loss: minimal Drains: none Implant(s) used?: No Indications for Procedure Patient with persistent leukocytosis line holiday recommended discussed with ID plan to remove temporary catheter is been in for some time line holiday antibiotics followed by a new catheter placement Description of Procedure Patient made comfortable the bedside in supine position. Right groin was prepped and draped prior dressings removed suture was cut catheter removed and tip sent for cultures. Pressure held for approximately 15 minutes until good hemostasis noted. Dressings applied. Patient tolerated procedure well. Ranjit Ralph Dec 06, 2019 10:05
--- NOTE | 2019-12-06 10:33 | Cardiology Progress Note ---
Assessment/Plan Assessment/Plan 1. Respiratory failure, probably pneumonia. 2. chf acute systolic 3. History of aortic valve replacement per records but no surgical scar on the chest wall.(pt denies avr) 4. History of coronary artery disease, unknown details. 5. Abnormal cardiac enzymes likely secondary to demand 6. septic shock 7. renal failure 8. metabolic respiratory acidosis 9. ARDS better looks ok wants to eat awaits swallow eval abx hhn observe dialysis Subjective Cardiovascular: Denies: chest pain, lightheadedness, palpitations Respiratory: Denies: shortness of breath Gastrointestinal/Abdominal: Denies: abdominal pain Genitourinary: Denies: burning Objective Last 24 Hour Vital Signs Date Time Temp Pulse Resp B/P (MAP) Pulse Ox O2 Delivery O2 Flow Rate FiO2 12/06/19 09:05 125/69 12/06/19 09:05 80 125/69 12/06/19 07:00 99 Nasal Cannula 5.0 40 12/06/19 04:00 Nasal Cannula 5.0 Nasal Cannula 5.0 12/06/19 04:00 5.0 12/06/19 04:00 99.2 84 22 112/62 (79) 98 12/06/19 03:56 85 12/06/19 00:16 137/72 12/06/19 00:00 98.8 83 24 132/63 (86) 94 12/06/19 00:00 5.0 12/06/19 00:00 Nasal Cannula 5.0 Nasal Cannula 5.0 12/05/19 23:27 82 12/05/19 21:09 86 107/42 12/05/19 20:53 96 Nasal Cannula 4.0 36 12/05/19 20:00 86 12/05/19 20:00 5.0 12/05/19 20:00 98.9 86 24 124/55 (78) 98 12/05/19 20:00 Nasal Cannula 5.0 Nasal Cannula 5.0 12/05/19 18:45 130/59 12/05/19 18:44 130/59 12/05/19 16:00 5.0 12/05/19 16:00 98.3 83 20 132/61 (84) 95 12/05/19 16:00 79 12/05/19 16:00 Nasal Cannula 5.0 Nasal Cannula 5.0 2/24/20 12:04 132/61 12/05/19 12:00 Nasal Cannula 5.0 Nasal Cannula 5.0 12/05/19 12:00 5.0 12/05/19 12:00 98.3 83 20 132/61 (84) 95 12/05/19 12:00 132/61 12/05/19 12:00 80 General Appearance: alert Neck: supple Cardiovascular: normal rate Respiratory/Chest: lungs clear Abdomen: normal bowel sounds, non tender, soft Extremities: no swelling Intake and Output 12/05/19 12/06/19 19:00 07:00 Intake Total 2280 ml 230 ml Output Total 120 ml Balance 2160 ml 230 ml Intake Free Water 40 ml 70 ml Tube Feeding 240 ml 160 ml Hemodialysis 2000 ml Output Urine Total 120 ml Laboratory Tests Test 12/06/19 03:25 White Blood Count 16.7 K/UL (4.8-10.8) H Red Blood Count 2.99 M/UL (4.70-6.10) L Hemoglobin 8.3 G/DL (14.2-18.0) L Hematocrit 25.7 % (42.0-52.0) L Mean Corpuscular Volume 86 FL (80-99) Mean Corpuscular Hemoglobin 27.7 PG (27.0-31.0) Mean Corpuscular Hemoglobin Concent 32.2 G/DL (32.0-36.0) Red Cell Distribution Width 15.5 % (11.6-14.8) H Platelet Count 298 K/UL (150-450) Mean Platelet Volume 7.7 FL (6.5-10.1) Neutrophils (%) (Auto) 83.7 % (45.0-75.0) H Lymphocytes (%) (Auto) 8.6 % (20.0-45.0) L Monocytes (%) (Auto) 5.2 % (1.0-10.0) Eosinophils (%) (Auto) 2.2 % (0.0-3.0) Basophils (%) (Auto) 0.4 % (0.0-2.0) Sodium Level 139 MMOL/L (136-145) Potassium Level 4.0 MMOL/L (3.5-5.1) Chloride Level 99 MMOL/L (98-107) Carbon Dioxide Level 31 MMOL/L (21-32) Anion Gap 9 mmol/L (5-15) Blood Urea Nitrogen 55 mg/dL (7-18) H Creatinine 5.7 MG/DL (0.55-1.30) H Estimat Glomerular Filtration Rate 12.5 mL/min (>60) Glucose Level 162 MG/DL (74-106) H Calcium Level 8.6 MG/DL (8.5-10.1) Antonio Byrd MD Dec 06, 2019 10:33
--- NOTE | 2019-12-06 10:46 | Nephrology Progress Note ---
Assessment/Plan Problem List: (1) ARF (acute renal failure) (2) Acute respiratory failure (3) Septic shock (4) Anemia (5) History of hypertension (6) Diabetes mellitus (7) Acute on chronic systolic heart failure Assessment: ej Fx 40 Assessment Acute renal failure- ? Underlying CKD Respiratory failure Anemia Sepsis / Shock ? 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 with ICU charge loader DC IV previously DC Hydrocortisone Antibiotics urine studies avoid nephrotoxics monitor renal parameters Anemia hairston per orders Subjective ROS Limited/Unobtainable: No Constitutional: Reports: malaise Objective Objective Last 24 Hour Vital Signs Date Time Temp Pulse Resp B/P (MAP) Pulse Ox O2 Delivery O2 Flow Rate FiO2 12/06/19 09:05 125/69 12/06/19 09:05 80 125/69 12/06/19 07:00 99 Nasal Cannula 5.0 40 12/06/19 04:00 Nasal Cannula 5.0 Nasal Cannula 5.0 12/06/19 04:00 5.0 12/06/19 04:00 99.2 84 22 112/62 (79) 98 12/06/19 03:56 85 12/06/19 00:16 137/72 12/06/19 00:00 98.8 83 24 132/63 (86) 94 12/06/19 00:00 5.0 12/06/19 00:00 Nasal Cannula 5.0 Nasal Cannula 5.0 12/05/19 23:27 82 12/05/19 21:09 86 107/42 12/05/19 20:53 96 Nasal Cannula 4.0 36 12/05/19 20:00 86 12/05/19 20:00 5.0 12/05/19 20:00 98.9 86 24 124/55 (78) 98 12/05/19 20:00 Nasal Cannula 5.0 Nasal Cannula 5.0 12/05/19 18:45 130/59 12/05/19 18:44 130/59 12/05/19 16:00 5.0 12/05/19 16:00 98.3 83 20 132/61 (84) 95 12/05/19 16:00 79 12/05/19 16:00 Nasal Cannula 5.0 Nasal Cannula 5.0 12/05/19 12:04 132/61 12/05/19 12:00 Nasal Cannula 5.0 Nasal Cannula 5.0 12/05/19 12:00 5.0 12/05/19 12:00 98.3 83 20 132/61 (84) 95 12/05/19 12:00 132/61 12/05/19 12:00 80 Intake and Output 12/05/19 12/06/19 19:00 07:00 Intake Total 2280 ml 230 ml Output Total 120 ml Balance 2160 ml 230 ml Intake Free Water 40 ml 70 ml Tube Feeding 240 ml 160 ml Hemodialysis 2000 ml Output Urine Total 120 ml Current Medications Medications (Trade) Dose Ordered Sig/Valeriano Route PRN Reason Start Time Stop Time Status Last Admin Dose Admin Acetaminophen (Tylenol) 650 mg Q4H PRN NG Mild Pain/Temp > 100.5 12/03/19 21:15 01/02/20 21:14 12/04/19 00:47 Albuterol/ Ipratropium (Albuterol/ Ipratropium) 3 ml Q4H PRN HHN Shortness of Breath 12/03/19 21:16 12/08/19 21:15 Amlodipine Besylate (Norvasc) 2.5 mg DAILYPRN PRN NG sbp greater than 150 12/03/19 21:15 01/02/20 21:14 Carvedilol (Coreg) 12.5 mg EVERY 12 HOURS NG 12/03/19 22:00 01/02/20 21:59 12/06/19 09:05 Chlorhexidine Gluconate (Katia-Hex 2%) 1 applic DAILY@2000 TOPIC 12/04/19 20:00 12/25/19 19:59 12/05/19 20:05 Dextrose (Dextrose 50%) 25 ml Q30M PRN IV Hypoglycemia 12/03/19 21:30 12/24/19 13:29 Dextrose (Dextrose 50%) 50 ml Q30M PRN IV Hypoglycemia 12/03/19 21:30 12/24/19 13:29 Folic Acid (Folate) 5 mg DAILY GT 12/04/19 09:00 12/27/19 08:59 12/06/19 09:04 Heparin Sodium (Porcine) (Heparin 5000 units/ml) 5,000 units EVERY 12 HOURS SUBQ 12/03/19 22:00 01/02/20 21:59 12/06/19 09:07 Hydralazine HCl (Apresoline) 50 mg EVERY 6 HOURS GT 12/04/19 00:00 01/01/20 00:00 12/06/19 00:16 Insulin Aspart (NovoLOG) BEFORE MEALS AND HS SUBQ 12/03/19 21:14 01/02/20 21:13 12/04/19 16:43 Isosorbide Dinitrate (Isordil) 20 mg TID GT 12/04/19 09:00 01/01/20 08:59 12/06/19 09:05 Lansoprazole (Prevacid) 30 mg BID NG 12/04/19 09:00 12/30/19 17:59 12/06/19 09:05 Meropenem 500 mg/ Sodium Chloride 55 ml @ 110 mls/hr Q24H IVPB 12/04/19 12:00 12/10/19 11:59 12/05/19 12:05 Morphine Sulfate (Morphine Sulfate) 2 mg Q4H PRN IVP Severe Pain (Pain Scale 7-10) 12/03/19 21:17 12/10/19 21:16 12/05/19 00:33 Nitroglycerin (Ntg) 0.4 mg Q5M PRN SL Prn Chest Pain 12/03/19 21:17 01/02/20 21:16 Ondansetron HCl (Zofran) 4 mg Q6H PRN IVP Nausea & Vomiting 12/03/19 21:17 01/02/20 21:16 Polyethylene Glycol (Miralax) 17 gm DAILYPRN PRN NG Constipation 12/03/19 21:17 01/02/20 21:16 Promethazine HCl/ Codeine (Phenergan with Codeine) 5 ml Q4H PRN NG For Cough 12/03/19 21:17 01/02/20 21:16 Vancomycin HCl (Vanco rx to dose) 1 ea DAILY PRN MISC Per rx protocol 12/05/19 11:45 01/04/20 11:44 Laboratory Tests 12/06/19 03:25: White Blood Count 16.7H, Red Blood Count 2.99L, Hemoglobin 8.3L, Hematocrit 25.7L, Mean Corpuscular Volume 86, Mean Corpuscular Hemoglobin 27.7, Mean Corpuscular Hemoglobin Concent 32.2, Red Cell Distribution Width 15.5H, Platelet Count 298, Mean Platelet Volume 7.7, Neutrophils (%) (Auto) 83.7H, Lymphocytes (%) (Auto) 8.6L, Monocytes (%) (Auto) 5.2, Eosinophils (%) (Auto) 2.2, Basophils (%) (Auto) 0.4, Sodium Level 139, Potassium Level 4.0, Chloride Level 99, Carbon Dioxide Level 31, Anion Gap 9, Blood Urea Nitrogen 55H, Creatinine 5.7H, Estimat Glomerular Filtration Rate 12.5, Glucose Level 162H, Calcium Level 8.6 Height (Feet): 5 Height (Inches): 8.00 Weight (Pounds): 240 General Appearance: no apparent distress Cardiovascular: normal rate Respiratory/Chest: decreased breath sounds Abdomen: soft Objective no change Tej Sidhu MD Dec 06, 2019 10:46
--- NOTE | 2019-12-06 11:10 | Pulmonology Progress Note ---
Assessment/Plan Problems: (1) Acute respiratory failure (2) ESRD (end stage renal disease) (3) Septic shock (4) Chronic systolic heart failure (5) History of hypertension (6) Diabetes mellitus (7) History of left below knee amputation (8) History of gout Assessment/Plan repeat swallow study today WBC is still elevated, repeat cultures off bipapa for a few days titrate fio2 to sat of 92% check cultures abx as per ID Subjective ROS Limited/Unobtainable: No Constitutional: Reports: no symptoms HEENT: Repors: no symptoms Allergies: Coded Allergies: No Known Allergies (Unverified , 11/24/19) Objective Last 24 Hour Vital Signs Date Time Temp Pulse Resp B/P (MAP) Pulse Ox O2 Delivery O2 Flow Rate FiO2 12/06/19 09:05 125/69 12/06/19 09:05 80 125/69 12/06/19 08:00 80 12/06/19 08:00 Nasal Cannula 5.0 Nasal Cannula 5.0 12/06/19 08:00 5.0 12/06/19 08:00 98.9 80 20 125/69 (87) 100 12/06/19 07:00 99 Nasal Cannula 5.0 40 12/06/19 04:00 Nasal Cannula 5.0 Nasal Cannula 5.0 12/06/19 04:00 5.0 12/06/19 04:00 99.2 84 22 112/62 (79) 98 12/06/19 03:56 85 12/06/19 00:16 137/72 12/06/19 00:00 98.8 83 24 132/63 (86) 94 12/06/19 00:00 5.0 12/06/19 00:00 Nasal Cannula 5.0 Nasal Cannula 5.0 12/05/19 23:27 82 12/05/19 21:09 86 107/42 12/05/19 20:53 96 Nasal Cannula 4.0 36 12/05/19 20:00 86 12/05/19 20:00 5.0 12/05/19 20:00 98.9 86 24 124/55 (78) 98 12/05/19 20:00 Nasal Cannula 5.0 Nasal Cannula 5.0 12/05/19 18:45 130/59 12/05/19 18:44 130/59 12/05/19 16:00 5.0 12/05/19 16:00 98.3 83 20 132/61 (84) 95 12/05/19 16:00 79 12/05/19 16:00 Nasal Cannula 5.0 Nasal Cannula 5.0 12/05/19 12:04 132/61 12/05/19 12:00 Nasal Cannula 5.0 Nasal Cannula 5.0 12/05/19 12:00 5.0 12/05/19 12:00 98.3 83 20 132/61 (84) 95 12/05/19 12:00 132/61 12/05/19 12:00 80 Intake and Output 12/05/19 12/06/19 19:00 07:00 Intake Total 2280 ml 230 ml Output Total 120 ml Balance 2160 ml 230 ml Intake Free Water 40 ml 70 ml Tube Feeding 240 ml 160 ml Hemodialysis 2000 ml Output Urine Total 120 ml General Appearance: WD/WN HEENT: normocephalic, atraumatic Respiratory/Chest: chest wall non-tender, lungs clear Cardiovascular: normal peripheral pulses, normal rate, regular rhythm Abdomen: normal bowel sounds, soft, non tender, no organomegaly Genitourinary: normal external genitalia Laboratory Tests 12/06/19 03:25: White Blood Count 16.7H, Red Blood Count 2.99L, Hemoglobin 8.3L, Hematocrit 25.7L, Mean Corpuscular Volume 86, Mean Corpuscular Hemoglobin 27.7, Mean Corpuscular Hemoglobin Concent 32.2, Red Cell Distribution Width 15.5H, Platelet Count 298, Mean Platelet Volume 7.7, Neutrophils (%) (Auto) 83.7H, Lymphocytes (%) (Auto) 8.6L, Monocytes (%) (Auto) 5.2, Eosinophils (%) (Auto) 2.2, Basophils (%) (Auto) 0.4, Sodium Level 139, Potassium Level 4.0, Chloride Level 99, Carbon Dioxide Level 31, Anion Gap 9, Blood Urea Nitrogen 55H, Creatinine 5.7H, Estimat Glomerular Filtration Rate 12.5, Glucose Level 162H, Calcium Level 8.6 Current Medications Medications (Trade) Dose Ordered Sig/Valeriano Route PRN Reason Start Time Stop Time Status Last Admin Dose Admin Acetaminophen (Tylenol) 650 mg Q4H PRN NG Mild Pain/Temp > 100.5 12/03/19 21:15 01/02/20 21:14 12/04/19 00:47 Albuterol/ Ipratropium (Albuterol/ Ipratropium) 3 ml Q4H PRN HHN Shortness of Breath 12/03/19 21:16 12/08/19 21:15 Amlodipine Besylate (Norvasc) 2.5 mg DAILYPRN PRN NG sbp greater than 150 12/03/19 21:15 01/02/20 21:14 Carvedilol (Coreg) 12.5 mg EVERY 12 HOURS NG 12/03/19 22:00 01/02/20 21:59 12/06/19 09:05 Chlorhexidine Gluconate (Katia-Hex 2%) 1 applic DAILY@2000 TOPIC 12/04/19 20:00 12/25/19 19:59 12/05/19 20:05 Dextrose (Dextrose 50%) 25 ml Q30M PRN IV Hypoglycemia 12/03/19 21:30 12/24/19 13:29 Dextrose (Dextrose 50%) 50 ml Q30M PRN IV Hypoglycemia 12/03/19 21:30 12/24/19 13:29 Folic Acid (Folate) 5 mg DAILY GT 12/04/19 09:00 12/27/19 08:59 12/06/19 09:04 Heparin Sodium (Porcine) (Heparin 5000 units/ml) 5,000 units EVERY 12 HOURS SUBQ 12/03/19 22:00 01/02/20 21:59 12/06/19 09:07 Hydralazine HCl (Apresoline) 50 mg EVERY 6 HOURS GT 12/04/19 00:00 01/01/20 00:00 12/06/19 00:16 Insulin Aspart (NovoLOG) BEFORE MEALS AND HS SUBQ 12/03/19 21:14 01/02/20 21:13 12/04/19 16:43 Isosorbide Dinitrate (Isordil) 20 mg TID GT 12/04/19 09:00 01/01/20 08:59 12/06/19 09:05 Lansoprazole (Prevacid) 30 mg BID NG 12/04/19 09:00 12/30/19 17:59 12/06/19 09:05 Meropenem 500 mg/ Sodium Chloride 55 ml @ 110 mls/hr Q24H IVPB 12/04/19 12:00 12/10/19 11:59 12/05/19 12:05 Morphine Sulfate (Morphine Sulfate) 2 mg Q4H PRN IVP Severe Pain (Pain Scale 7-10) 12/03/19 21:17 12/10/19 21:16 12/05/19 00:33 Nitroglycerin (Ntg) 0.4 mg Q5M PRN SL Prn Chest Pain 12/03/19 21:17 01/02/20 21:16 Ondansetron HCl (Zofran) 4 mg Q6H PRN IVP Nausea & Vomiting 12/03/19 21:17 01/02/20 21:16 Polyethylene Glycol (Miralax) 17 gm DAILYPRN PRN NG Constipation 12/03/19 21:17 01/02/20 21:16 Promethazine HCl/ Codeine (Phenergan with Codeine) 5 ml Q4H PRN NG For Cough 12/03/19 21:17 01/02/20 21:16 Vancomycin HCl (Vanco rx to dose) 1 ea DAILY PRN MISC Per rx protocol 12/05/19 11:45 01/04/20 11:44 Brandy Milton MD Dec 06, 2019 11:10
[2019-12-06 12:00] VITALS: BP 114/57
--- NOTE | 2019-12-06 12:00 | NUR ---
NURSE NOTES: The patient is stable without acute distress or shortness of breath. Will continue plan of care.
[2019-12-06] MEDS: Meropenem 500 MG in NS 55 ML IVPB SCH (12:21)
--- NOTE | 2019-12-06 14:00 | NUR ---
NURSE NOTES: Rosaura (Speech therapist), Dr. Milton, and the primary nurse had brief meeting regarding weaning off from NGT to oral feeding. Per Rosaura, the patient passed speech evaluation. Dr. Milton ordered to remove NGT and change diet from tube feeding to renal diet but start with puree. Will carry out the order. Will continue plan of care.
[2019-12-06 16:00] VITALS: BP 110/57
--- NOTE | 2019-12-06 16:00 | NUR ---
NURSE NOTES: The patient's right NGT out per Dr. Milton's order and tolerated renal puree diet well. The patient is stable without acute distress or shortness of breath. Will continue plan of care.
--- NOTE | 2019-12-06 18:01 | Infectious Diseases Prog Note ---
Assessment/Plan Assessment/Plan Assessment: Septic Shock- SP Pneumonia -12/01 CXR: probably unchanged bilateral diffuse interstitial and airspace disease. -11/30 sp cx:Interim marked worsening of bilateral pulmonary parenchymal disease, over one day -11/29 sp cx ESBL E.coli (S zosyn, Imipenem, bactrim) -11/24 u/a neg; ucx neg Bcx NTD influenza sc neg CXR: Bilateral dense consolidation, likely pneumonia. Pulmonary edema also possible. Correlate with clinical findings sp cx ordered,not done legionella ag urine neg S. hominis bacteremia- RIJ infection vs contamination - HD Cath removed on 12/06 - RIJ removed on 12/02 -11/27 Bcx 1/4 S. hominis; 11/29 Bcx 1/2 S. hominis (RIJ), NTD x2 (peripheral) Low grade fever Leukocytosis, increased, now improving ARDS Acute respiratory failure s/p intubation 11/24, sp extubation 11/29, now on bipap GANGA on CKD; now on HD 11/27 Elevated LFTs;improving Troponinemia Dm2 Gout s/p L BKA allergic rhinitis CAD s/p stent prosthetic AVR hx of esophagitis PVD chronic sCHF HLD HTN SNF resident Plan: - restart IV Vanco # 1 -Continue empiric Meropenem # 6/10 for ESBL E.coli PNA -12/01 SP IV Vancomycin #8, Tamiflu #7 -11/30 SP LEvaquin #7, Cefepime #7 -f/u cx -Monitor CBC/CMP, temperatures -aspiration precautions -repeat Bcx x2 discussed with RN today, not clear for perm cath placement yet , await further improvement of WBC Thank you for this consultation. Will continue to follow along with you. Subjective Allergies: Coded Allergies: No Known Allergies (Unverified , 11/24/19) Subjective comfortable wbc is improving Objective Vital Signs Last 24 Hour Vital Signs Date Time Temp Pulse Resp B/P (MAP) Pulse Ox O2 Delivery O2 Flow Rate FiO2 12/06/19 17:15 110/57 12/06/19 17:15 110/57 12/06/19 16:00 5.0 12/06/19 16:00 98.9 79 20 110/57 (74) 100 12/06/19 16:00 Nasal Cannula 5.0 Nasal Cannula 5.0 12/06/19 12:21 114/57 2/25/20 12:20 114/57 12/06/19 12:00 5.0 12/06/19 12:00 Nasal Cannula 5.0 Nasal Cannula 5.0 12/06/19 12:00 79 12/06/19 12:00 98.5 79 20 114/57 (76) 99 12/06/19 09:05 125/69 12/06/19 09:05 80 125/69 12/06/19 08:00 80 12/06/19 08:00 Nasal Cannula 5.0 Nasal Cannula 5.0 12/06/19 08:00 5.0 12/06/19 08:00 98.9 80 20 125/69 (87) 100 12/06/19 07:00 99 Nasal Cannula 5.0 40 12/06/19 04:00 Nasal Cannula 5.0 Nasal Cannula 5.0 12/06/19 04:00 5.0 12/06/19 04:00 99.2 84 22 112/62 (79) 98 12/06/19 03:56 85 12/06/19 00:16 137/72 12/06/19 00:00 98.8 83 24 132/63 (86) 94 12/06/19 00:00 5.0 12/06/19 00:00 Nasal Cannula 5.0 Nasal Cannula 5.0 12/05/19 23:27 82 12/05/19 21:09 86 107/42 12/05/19 20:53 96 Nasal Cannula 4.0 36 12/05/19 20:00 86 12/05/19 20:00 5.0 12/05/19 20:00 98.9 86 24 124/55 (78) 98 12/05/19 20:00 Nasal Cannula 5.0 Nasal Cannula 5.0 12/05/19 18:45 130/59 12/05/19 18:44 130/59 Height (Feet): 5 Height (Inches): 8.00 Weight (Pounds): 240 Respiratory/Chest: normal breath sounds Cardiovascular: regularly irregular Abdomen: no organomegaly Laboratory Tests Test 12/06/19 03:25 White Blood Count 16.7 K/UL (4.8-10.8) H Red Blood Count 2.99 M/UL (4.70-6.10) L Hemoglobin 8.3 G/DL (14.2-18.0) L Hematocrit 25.7 % (42.0-52.0) L Mean Corpuscular Volume 86 FL (80-99) Mean Corpuscular Hemoglobin 27.7 PG (27.0-31.0) Mean Corpuscular Hemoglobin Concent 32.2 G/DL (32.0-36.0) Red Cell Distribution Width 15.5 % (11.6-14.8) H Platelet Count 298 K/UL (150-450) Mean Platelet Volume 7.7 FL (6.5-10.1) Neutrophils (%) (Auto) 83.7 % (45.0-75.0) H Lymphocytes (%) (Auto) 8.6 % (20.0-45.0) L Monocytes (%) (Auto) 5.2 % (1.0-10.0) Eosinophils (%) (Auto) 2.2 % (0.0-3.0) Basophils (%) (Auto) 0.4 % (0.0-2.0) Sodium Level 139 MMOL/L (136-145) Potassium Level 4.0 MMOL/L (3.5-5.1) Chloride Level 99 MMOL/L (98-107) Carbon Dioxide Level 31 MMOL/L (21-32) Anion Gap 9 mmol/L (5-15) Blood Urea Nitrogen 55 mg/dL (7-18) H Creatinine 5.7 MG/DL (0.55-1.30) H Estimat Glomerular Filtration Rate 12.5 mL/min (>60) Glucose Level 162 MG/DL (74-106) H Calcium Level 8.6 MG/DL (8.5-10.1) Current Medications Medications (Trade) Dose Ordered Sig/Valeriano Route PRN Reason Start Time Stop Time Status Last Admin Dose Admin Acetaminophen (Tylenol) 650 mg Q4H PRN NG Mild Pain/Temp > 100.5 12/03/19 21:15 01/02/20 21:14 12/04/19 00:47 Albuterol/ Ipratropium (Albuterol/ Ipratropium) 3 ml Q4H PRN HHN Shortness of Breath 12/03/19 21:16 12/08/19 21:15 Amlodipine Besylate (Norvasc) 2.5 mg DAILYPRN PRN NG sbp greater than 150 12/03/19 21:15 01/02/20 21:14 Carvedilol (Coreg) 12.5 mg EVERY 12 HOURS NG 12/03/19 22:00 01/02/20 21:59 12/06/19 09:05 Chlorhexidine Gluconate (Katia-Hex 2%) 1 applic DAILY@2000 TOPIC 12/04/19 20:00 12/25/19 19:59 12/05/19 20:05 Dextrose (Dextrose 50%) 25 ml Q30M PRN IV Hypoglycemia 12/03/19 21:30 12/24/19 13:29 Dextrose (Dextrose 50%) 50 ml Q30M PRN IV Hypoglycemia 12/03/19 21:30 12/24/19 13:29 Folic Acid (Folate) 5 mg DAILY GT 12/04/19 09:00 12/27/19 08:59 12/06/19 09:04 Heparin Sodium (Porcine) (Heparin 5000 units/ml) 5,000 units EVERY 12 HOURS SUBQ 12/03/19 22:00 01/02/20 21:59 12/06/19 09:07 Hydralazine HCl (Apresoline) 50 mg EVERY 6 HOURS GT 12/04/19 00:00 01/01/20 00:00 12/06/19 17:15 Insulin Aspart (NovoLOG) BEFORE MEALS AND HS SUBQ 12/03/19 21:14 01/02/20 21:13 12/06/19 17:14 Isosorbide Dinitrate (Isordil) 20 mg TID GT 12/04/19 09:00 01/01/20 08:59 12/06/19 17:15 Lansoprazole (Prevacid) 30 mg BID NG 12/04/19 09:00 12/30/19 17:59 12/06/19 17:15 Meropenem 500 mg/ Sodium Chloride 55 ml @ 110 mls/hr Q24H IVPB 12/04/19 12:00 12/10/19 11:59 12/06/19 12:21 Morphine Sulfate (Morphine Sulfate) 2 mg Q4H PRN IVP Severe Pain (Pain Scale 7-10) 12/03/19 21:17 12/10/19 21:16 12/05/19 00:33 Nitroglycerin (Ntg) 0.4 mg Q5M PRN SL Prn Chest Pain 12/03/19 21:17 01/02/20 21:16 Ondansetron HCl (Zofran) 4 mg Q6H PRN IVP Nausea & Vomiting 12/03/19 21:17 01/02/20 21:16 Polyethylene Glycol (Miralax) 17 gm DAILYPRN PRN NG Constipation 12/03/19 21:17 01/02/20 21:16 Promethazine HCl/ Codeine (Phenergan with Codeine) 5 ml Q4H PRN NG For Cough 12/03/19 21:17 01/02/20 21:16 Vancomycin HCl (Vanco rx to dose) 1 ea DAILY PRN MISC Per rx protocol 12/05/19 11:45 01/04/20 11:44 Gabe Bush MD Dec 06, 2019 18:01
--- NOTE | 2019-12-06 18:40 | NUR ---
SPEECH THERAPY/WEEKLY SUMMARY/RE-EVALUATION PATIENT CLEARED FOR ST INTERVENTION BY [facility]. HE WAS RECEIVED SITTING UPRIGHT IN BED. HE WAS ALERT/VERBAL, COOPERATIVE. DUE TO HIS SIGNIFICANTLY IMPROVED MEDICAL STATUS AND THE PATIENTS DESIRE TO EAT, REQUESTED A RE/EVALUATION OF SWALLOW FUNCTION. REFERRED FOR SWALLOW EVAL BY DR MASON, SEE FULL REPORT. DYSPHAGIA RISK FACTORS FOR THIS 59 Y.O.M.: ACUTE (ARDS) RESP FAILURE, GERD ON PROTONIX, DIABETES, RECENT BKA, ALLERGIC RHINITIS, HTN. PER RN, WAS HOSPITALIZED AT [facility] (RECORDS REQUESTED). 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 [facility] EUGENIA REGULAR TEXTURE DIET AND THIN LIQUIDS (NO PASTA) WITH PROSTAT SF. NO ST NOTES. NOW NPO AND GETTING NGT FEEDINGS SINCE 11/25/19. INITIAL IMPRESSIONS: PATIENT ASSESSED WITH P.O. TRIALS OF SOFT SOLID, PUREE AND THIN LIQUIDS. PATIENT APPEARED TO TOLERATE THESE TRIALS WITH NO OVERT S/S OF ASPIRATION. CLEAR UPPER AIRWAY SOUNDS PRE/POST SWALLOW. EFFICACY OF ORAL MOTOR MUSCULATURE ESSENTIALLY INTACT. FULL LARYNGEAL EXCURSION. PATIENT ASKING FOR FOOD/WANTS TO EAT. VOCAL QUALITY CLEAR THROUGHOUT TRIALS. NO VITAL SIGN CHANGES DURING MULTIPLE TRIALS. NO SHORTNESS OF BREATH. 02 SUPPORT VIA NC AT 2 LIT. RECOMMENDATIONS: 1. PATIENT PRESENTS SAFE TO RESUME P.O. WITH PUREE/THIN LIQUIDS 2. TOTAL ASSIST WITH MEALS 3. PILLS TOLERATED 4. VIDEO SWALLOW STUDY TO DETERMINE EFFICACY OF OROPHARYNGEAL PHASE OF SWALLOW 5. ST TO PROVIDE DYSPHAGIA MANAGEMENT/TX 6. COGNITIVE SCREEN D/W YUKI CONCEPCION, AND DR. KOHLI
--- NOTE | 2019-12-06 19:15 | NUR ---
HAND-OFF: Report given to YUKI Wong. The patient is resting on the bed without acute distress or shortness of breath. The patient's bed in the lowest position, call light in reach, and fall and aspriration precaution reinforced. IV site intact and patent. 5L NC per order and oxygen saturation within normal range. Cruz draining well per order. Endorsed plan of care.
--- NOTE | 2019-12-06 19:20 | NUR ---
Received report from Lorrie MIRZA. Patient resting in bed
--- NOTE | 2019-12-06 19:27 | Internal Med Progress Note ---
Subjective Date of Service: Dec 06, 2019 Physician Name GalavizSidney Attending Physician Cezar Ceja MD Current Medications Medications (Trade) Dose Ordered Sig/Valeriano Route PRN Reason Start Time Stop Time Status Last Admin Dose Admin Acetaminophen (Tylenol) 650 mg Q4H PRN NG Mild Pain/Temp > 100.5 12/03/19 21:15 01/02/20 21:14 12/04/19 00:47 Albuterol/ Ipratropium (Albuterol/ Ipratropium) 3 ml Q4H PRN HHN Shortness of Breath 12/03/19 21:16 12/08/19 21:15 Amlodipine Besylate (Norvasc) 2.5 mg DAILYPRN PRN NG sbp greater than 150 12/03/19 21:15 01/02/20 21:14 Carvedilol (Coreg) 12.5 mg EVERY 12 HOURS NG 12/03/19 22:00 01/02/20 21:59 12/06/19 09:05 Chlorhexidine Gluconate (Katia-Hex 2%) 1 applic DAILY@2000 TOPIC 12/04/19 20:00 12/25/19 19:59 12/05/19 20:05 Dextrose (Dextrose 50%) 25 ml Q30M PRN IV Hypoglycemia 12/03/19 21:30 12/24/19 13:29 Dextrose (Dextrose 50%) 50 ml Q30M PRN IV Hypoglycemia 12/03/19 21:30 12/24/19 13:29 Folic Acid (Folate) 5 mg DAILY GT 12/04/19 09:00 12/27/19 08:59 12/06/19 09:04 Heparin Sodium (Porcine) (Heparin 5000 units/ml) 5,000 units EVERY 12 HOURS SUBQ 12/03/19 22:00 01/02/20 21:59 12/06/19 09:07 Hydralazine HCl (Apresoline) 50 mg EVERY 6 HOURS GT 12/04/19 00:00 01/01/20 00:00 12/06/19 17:15 Insulin Aspart (NovoLOG) BEFORE MEALS AND HS SUBQ 12/03/19 21:14 01/02/20 21:13 12/06/19 17:14 Isosorbide Dinitrate (Isordil) 20 mg TID GT 12/04/19 09:00 01/01/20 08:59 12/06/19 17:15 Lansoprazole (Prevacid) 30 mg BID NG 12/04/19 09:00 12/30/19 17:59 12/06/19 17:15 Meropenem 500 mg/ Sodium Chloride 55 ml @ 110 mls/hr Q24H IVPB 12/04/19 12:00 12/10/19 11:59 12/06/19 12:21 Morphine Sulfate (Morphine Sulfate) 2 mg Q4H PRN IVP Severe Pain (Pain Scale 7-10) 12/03/19 21:17 12/10/19 21:16 12/05/19 00:33 Nitroglycerin (Ntg) 0.4 mg Q5M PRN SL Prn Chest Pain 12/03/19 21:17 01/02/20 21:16 Ondansetron HCl (Zofran) 4 mg Q6H PRN IVP Nausea & Vomiting 12/03/19 21:17 01/02/20 21:16 Polyethylene Glycol (Miralax) 17 gm DAILYPRN PRN NG Constipation 12/03/19 21:17 01/02/20 21:16 Promethazine HCl/ Codeine (Phenergan with Codeine) 5 ml Q4H PRN NG For Cough 12/03/19 21:17 01/02/20 21:16 Vancomycin HCl (Vanco rx to dose) 1 ea DAILY PRN MISC Per rx protocol 12/05/19 11:45 01/04/20 11:44 Allergies: Coded Allergies: No Known Allergies (Unverified , 11/24/19) ROS Limited/Unobtainable: No Constitutional: Reports: no symptoms HEENT: Reports: no symptoms Cardiovascular: Reports: no symptoms Respiratory: Reports: shortness of breath Gastrointestinal/Abdominal: Reports: no symptoms Genitourinary: Reports: no symptoms Neurologic/Psychiatric: Reports: no symptoms Subjective 59 YO M admitted with respiratory failure. Cover for Int Barb Ceja. JA Objective Last Vital Signs Date Time Temp Pulse Resp B/P (MAP) Pulse Ox O2 Delivery O2 Flow Rate FiO2 12/06/19 17:15 110/57 12/06/19 16:00 5.0 12/06/19 16:00 98.9 79 20 100 12/06/19 16:00 Nasal Cannula Nasal Cannula 12/06/19 07:00 40 Laboratory Tests Test 12/06/19 03:25 White Blood Count 16.7 K/UL (4.8-10.8) H Red Blood Count 2.99 M/UL (4.70-6.10) L Hemoglobin 8.3 G/DL (14.2-18.0) L Hematocrit 25.7 % (42.0-52.0) L Mean Corpuscular Volume 86 FL (80-99) Mean Corpuscular Hemoglobin 27.7 PG (27.0-31.0) Mean Corpuscular Hemoglobin Concent 32.2 G/DL (32.0-36.0) Red Cell Distribution Width 15.5 % (11.6-14.8) H Platelet Count 298 K/UL (150-450) Mean Platelet Volume 7.7 FL (6.5-10.1) Neutrophils (%) (Auto) 83.7 % (45.0-75.0) H Lymphocytes (%) (Auto) 8.6 % (20.0-45.0) L Monocytes (%) (Auto) 5.2 % (1.0-10.0) Eosinophils (%) (Auto) 2.2 % (0.0-3.0) Basophils (%) (Auto) 0.4 % (0.0-2.0) Sodium Level 139 MMOL/L (136-145) Potassium Level 4.0 MMOL/L (3.5-5.1) Chloride Level 99 MMOL/L (98-107) Carbon Dioxide Level 31 MMOL/L (21-32) Anion Gap 9 mmol/L (5-15) Blood Urea Nitrogen 55 mg/dL (7-18) H Creatinine 5.7 MG/DL (0.55-1.30) H Estimat Glomerular Filtration Rate 12.5 mL/min (>60) Glucose Level 162 MG/DL (74-106) H Calcium Level 8.6 MG/DL (8.5-10.1) Intake and Output 12/05/19 12/06/19 19:00 07:00 Intake Total 2280 ml 230 ml Output Total 120 ml Balance 2160 ml 230 ml Free Water 40 ml 70 ml Tube Feeding 240 ml 160 ml Hemodialysis 2000 ml Output Urine Total 120 ml Objective PHYSICAL EXAMINATION: GENERAL: The patient is a well-developed and well-nourished male, in moderate respiratory distress. HEENT: Eyes, pupils are equal and responsive to light and accommodation. Extraocular movements are intact. NECK: Supple without lymphadenopathy. CHEST: nasal canula; Mechanical breath sounds, otherwise without wheezes or rales. CARDIOVASCULAR: Regular rate. S1 and S2 normal without murmurs, rubs, or gallops. ABDOMEN: Soft, nontender, and nondistended. Positive bowel sounds. No evidence of hepatosplenomegaly. Currently, no rebound or guarding noted. EXTREMITIES: Negative for clubbing, cyanosis, or edema. RECTAL/GENITAL: Refused. NEUROLOGIC: Cranial nerves II through XII are grossly intact without focal deficits. Assessment/Plan Assessment/Plan ASSESSMENT: This is a 59-year-old male. 1. Respiratory failure. 2. Pneumonia. 3. Probable sepsis. 4. Diabetes type 2. 5. Hypertension. 6. Hypercholesterolemia. TREATMENT: 1. Respiratory failure/pneumonia. The patient is currently tolerating nasal canula in the intensive care unit. A Pulmonary consultation has been obtained with Dr. Brandy Milton. Sputum=ESBL E. Coli. ABX=meropenem and vanco. ID=Dr Souza Continue Tamiflu per ID=Dr Andrade. We will follow recommendations of Pulmonary. 2. Sepsis. Blood cultures=Staph Hominis. ABX=meropenem and vanco 3. Diabetes type 2. A NovoLog sliding scale has been instituted. 4. Hypertension. The patient is currently hypotensive. Hold antihypertensive medication. 5. Hypercholesterolemia. Continue atorvastatin as above. Sidney Galaviz MD Dec 06, 2019 19:27
[2019-12-06 20:00] VITALS: BP 122/58
[2019-12-06] MEDS: Dyna-Hex 2% Top Sol 2oz TOPIC SCH (20:00)
[2019-12-07] VITALS: BP 126/58
[2019-12-07] MEDS: HydrALAZINE 50mg tab GT SCH ×4 (00:19→17:39)
[2019-12-07 04:00] VITALS: BP 127/57
[2019-12-07 05:57] LABS: HEMATOCRIT 22.3 % (42.0-52.0); HEMOGLOBIN 7.4 G/DL (14.2-18.0); MEAN CORPUSCULAR VOLUME 84 FL (80-99); PLATELET COUNT 287 K/UL (150-450); RED BLOOD COUNT 2.63 M/UL (4.70-6.10); RED CELL DISTRIBUTION WIDTH 13.5 % (11.6-14.8); WHITE BLOOD COUNT 11.6 K/UL (4.8-10.8)
[2019-12-07] MEDS: NovoLOG Insulin Flexpen SUBQ SCH ×4 (06:22→20:50)
[2019-12-07 07:05] LABS: PHOSPHORUS 6.5 MG/DL (2.5-4.9)
--- NOTE | 2019-12-07 07:05 | NUR ---
HAND-OFF: Report given to YUKI Andrew. Pt in stable condition.
--- NOTE | 2019-12-07 07:20 | NUR ---
NURSE NOTES: Received report from YUKI Wong. The patient is resting on the bed without acute distress or shortness of breath. The patient's bed in the lowest position, call light in reach, and fall and aspiration precaution reinforced. IV site intact and patent. 5L NC for oxygen therapy, and saturation within normal range. Will follow up tunnel cath placement with possible dialysis with Dr. Bush and Dr. Sidhu. Will continue plan of care.
[2019-12-07 07:24] LABS: ALANINE AMINOTRANSFERASE 34 U/L (12-78); ALBUMIN 1.8 G/DL (3.4-5.0); ALBUMIN/GLOBULIN RATIO 0.4 (1.0-2.7); ALKALINE PHOSPHATASE 133 U/L (46-116); ANION GAP 10 mmol/L (5-15); ASPARTATE AMINO TRANSFERASE 45 U/L (15-37); BILIRUBIN,TOTAL 0.4 MG/DL (0.2-1.0); BLOOD UREA NITROGEN 68 mg/dL (7-18); CALCIUM 8.6 MG/DL (8.5-10.1); CARBON DIOXIDE 30 MMOL/L (21-32); CHLORIDE 96 MMOL/L (98-107); POTASSIUM 4.4 MMOL/L (3.5-5.1); SODIUM 136 MMOL/L (136-145)
[2019-12-07 08:00] VITALS: BP 127/63
--- NOTE | 2019-12-07 08:30 | NUR ---
NURSE NOTES: Spoke with Dr. Bush regarding clearance for tunnel cath placement today. Per Dr. Bush, clear the patient for tunnel cath if Dr. Sidhu orders as urgent dialysis today. If not, Dr. Bush clears the patient for tunnel cath placement for 12/08/2019. Paged Dr. Sidhu regarding Dr. Bush's order and abnormal lab including, BUN, Cr, and hemoglobin. No new order yet from Dr. Sidhu. Will continue plan of care.
[2019-12-07] MEDS: Heparin 5000 units/ml inj SUBQ SCH ×2 (09:00→20:50)
[2019-12-07] MEDS: Carvedilol 12.5mg tab NG SCH ×2 (09:00→20:50)
--- NOTE | 2019-12-07 10:01 | Infectious Diseases Prog Note ---
Assessment/Plan Assessment/Plan Assessment: Septic Shock- SP Pneumonia -12/01 CXR: probably unchanged bilateral diffuse interstitial and airspace disease. -11/30 sp cx:Interim marked worsening of bilateral pulmonary parenchymal disease, over one day -11/29 sp cx ESBL E.coli (S zosyn, Imipenem, bactrim) -11/24 u/a neg; ucx neg Bcx NTD influenza sc neg CXR: Bilateral dense consolidation, likely pneumonia. Pulmonary edema also possible. Correlate with clinical findings sp cx ordered,not done legionella ag urine neg S. hominis bacteremia- RIJ infection vs contamination - HD Cath removed on 12/06 - RIJ removed on 12/02 -11/27 Bcx 1/4 S. hominis; 11/29 Bcx 1/ S. hominis (RIJ), NTD x2 (peripheral) Low grade fever , Sp Leukocytosis, improving ARDS Acute respiratory failure s/p intubation 11/24, sp extubation 11/29, now on bipap GANGA on CKD; now on HD 11/27 Elevated LFTs;improving Troponinemia Dm2 Gout s/p L BKA allergic rhinitis CAD s/p stent prosthetic AVR hx of esophagitis PVD chronic sCHF HLD HTN SNF resident Plan: - cont IV Vanco # 3 -Continue empiric Meropenem # 7/10 for ESBL E.coli PNA -12/01 SP IV Vancomycin #8, Tamiflu #7 -11/30 SP LEvaquin #7, Cefepime #7 -f/u cx -Monitor CBC/CMP, temperatures -aspiration precautions -repeat Bcx x2 discussed with RN , may proceed with perm cath placement , preferably tomorrow Thank you for this consultation. Will continue to follow along with you. Subjective Allergies: Coded Allergies: No Known Allergies (Unverified , 11/24/19) Subjective comfortable wbc is improving Objective Vital Signs Last 24 Hour Vital Signs Date Time Temp Pulse Resp B/P (MAP) Pulse Ox O2 Delivery O2 Flow Rate FiO2 12/07/19 09:00 127/63 12/07/19 09:00 81 127/63 12/07/19 06:20 122/58 12/07/19 04:00 Nasal Cannula 5.0 Nasal Cannula 5.0 12/07/19 04:00 98.0 79 22 127/57 (80) 95 12/07/19 04:00 5.0 12/07/19 03:23 78 12/07/19 00:19 126/58 12/07/19 00:00 Nasal Cannula 5.0 Nasal Cannula 5.0 12/07/19 00:00 98.1 75 20 126/58 (80) 94 12/07/19 00:00 5.0 12/06/19 23:46 78 12/06/19 21:44 74 122/58 12/06/19 20:00 Nasal Cannula 5.0 Nasal Cannula 5.0 12/06/19 20:00 98.1 74 20 122/58 (79) 98 12/06/19 20:00 5.0 12/06/19 19:14 75 12/06/19 17:15 110/57 12/06/19 17:15 110/57 12/06/19 16:00 5.0 12/06/19 16:00 98.9 79 20 110/57 (74) 100 12/06/19 16:00 75 12/06/19 16:00 Nasal Cannula 5.0 Nasal Cannula 5.0 12/06/19 12:21 114/57 12/06/19 12:20 114/57 12/06/19 12:00 5.0 12/06/19 12:00 Nasal Cannula 5.0 Nasal Cannula 5.0 12/06/19 12:00 79 12/06/19 12:00 98.5 79 20 114/57 (76) 99 Height (Feet): 5 Height (Inches): 8.00 Weight (Pounds): 233 HEENT: anicteric Respiratory/Chest: normal breath sounds Cardiovascular: regular rhythm Abdomen: no organomegaly Microbiology Date/Time Source Procedure Growth Status 12/05/19 11:55 Blood Blood Culture - Preliminary NO GROWTH AFTER 24 HOURS Resulted 12/05/19 11:45 Blood Blood Culture - Preliminary NO GROWTH AFTER 24 HOURS Resulted 12/06/19 07:57 Other(Specify in comment) Catheter Tip Culture - Preliminary NO GROWTH AFTER 24 HOURS Resulted Laboratory Tests Test 12/07/19 04:20 White Blood Count 11.6 K/UL (4.8-10.8) H Red Blood Count 2.63 M/UL (4.70-6.10) L Hemoglobin 7.4 G/DL (14.2-18.0) L Hematocrit 22.3 % (42.0-52.0) L Mean Corpuscular Volume 84 FL (80-99) Mean Corpuscular Hemoglobin 28.1 PG (27.0-31.0) Mean Corpuscular Hemoglobin Concent 33.3 G/DL (32.0-36.0) Red Cell Distribution Width 13.5 % (11.6-14.8) Platelet Count 287 K/UL (150-450) Mean Platelet Volume 5.5 FL (6.5-10.1) L Neutrophils (%) (Auto) % (45.0-75.0) Lymphocytes (%) (Auto) % (20.0-45.0) Monocytes (%) (Auto) % (1.0-10.0) Eosinophils (%) (Auto) % (0.0-3.0) Basophils (%) (Auto) % (0.0-2.0) Erythrocyte Sedimentation Rate 135 MM/HR (0-20) H Sodium Level 136 MMOL/L (136-145) Potassium Level 4.4 MMOL/L (3.5-5.1) Chloride Level 96 MMOL/L (98-107) L Carbon Dioxide Level 30 MMOL/L (21-32) Anion Gap 10 mmol/L (5-15) Blood Urea Nitrogen 68 mg/dL (7-18) H Creatinine 7.0 MG/DL (0.55-1.30) H Estimat Glomerular Filtration Rate 9.8 mL/min (>60) Glucose Level 90 MG/DL (74-106) Uric Acid 5.9 MG/DL (2.6-7.2) Calcium Level 8.6 MG/DL (8.5-10.1) Phosphorus Level 6.5 MG/DL (2.5-4.9) H Magnesium Level 2.1 MG/DL (1.8-2.4) Total Bilirubin 0.4 MG/DL (0.2-1.0) Aspartate Amino Transf (AST/SGOT) 45 U/L (15-37) H Alanine Aminotransferase (ALT/SGPT) 34 U/L (12-78) Alkaline Phosphatase 133 U/L (46-116) H C-Reactive Protein, Quantitative 8.3 mg/dL (0.00-0.90) H Total Protein 6.5 G/DL (6.4-8.2) Albumin 1.8 G/DL (3.4-5.0) L Globulin 4.7 g/dL Albumin/Globulin Ratio 0.4 (1.0-2.7) L Random Vancomycin Level 27.3 ug/mL Current Medications Medications (Trade) Dose Ordered Sig/Valeriano Route PRN Reason Start Time Stop Time Status Last Admin Dose Admin Acetaminophen (Tylenol) 650 mg Q4H PRN NG Mild Pain/Temp > 100.5 12/03/19 21:15 01/02/20 21:14 12/04/19 00:47 Albuterol/ Ipratropium (Albuterol/ Ipratropium) 3 ml Q4H PRN HHN Shortness of Breath 12/03/19 21:16 12/08/19 21:15 Amlodipine Besylate (Norvasc) 2.5 mg DAILYPRN PRN NG sbp greater than 150 12/03/19 21:15 01/02/20 21:14 Carvedilol (Coreg) 12.5 mg EVERY 12 HOURS NG 12/03/19 22:00 01/02/20 21:59 12/06/19 21:44 Chlorhexidine Gluconate (Katia-Hex 2%) 1 applic DAILY@2000 TOPIC 12/04/19 20:00 12/25/19 19:59 12/05/19 20:05 Dextrose (Dextrose 50%) 25 ml Q30M PRN IV Hypoglycemia 12/03/19 21:30 12/24/19 13:29 Dextrose (Dextrose 50%) 50 ml Q30M PRN IV Hypoglycemia 12/03/19 21:30 12/24/19 13:29 Folic Acid (Folate) 5 mg DAILY GT 12/04/19 09:00 12/27/19 08:59 12/07/19 09:12 Heparin Sodium (Porcine) (Heparin 5000 units/ml) 5,000 units EVERY 12 HOURS SUBQ 12/03/19 22:00 01/02/20 21:59 12/06/19 09:07 Hydralazine HCl (Apresoline) 50 mg EVERY 6 HOURS GT 12/04/19 00:00 01/01/20 00:00 12/07/19 06:20 Insulin Aspart (NovoLOG) BEFORE MEALS AND HS SUBQ 12/03/19 21:14 01/02/20 21:13 12/06/19 17:14 Isosorbide Dinitrate (Isordil) 20 mg TID GT 12/04/19 09:00 01/01/20 08:59 12/06/19 17:15 Lansoprazole (Prevacid) 30 mg BID NG 12/04/19 09:00 12/30/19 17:59 12/07/19 09:13 Meropenem 500 mg/ Sodium Chloride 55 ml @ 110 mls/hr Q24H IVPB 12/04/19 12:00 12/10/19 11:59 12/06/19 12:21 Morphine Sulfate (Morphine Sulfate) 2 mg Q4H PRN IVP Severe Pain (Pain Scale 7-10) 12/03/19 21:17 12/10/19 21:16 12/05/19 00:33 Nitroglycerin (Ntg) 0.4 mg Q5M PRN SL Prn Chest Pain 12/03/19 21:17 01/02/20 21:16 Ondansetron HCl (Zofran) 4 mg Q6H PRN IVP Nausea & Vomiting 12/03/19 21:17 01/02/20 21:16 Polyethylene Glycol (Miralax) 17 gm DAILYPRN PRN NG Constipation 12/03/19 21:17 01/02/20 21:16 Promethazine HCl/ Codeine (Phenergan with Codeine) 5 ml Q4H PRN NG For Cough 12/03/19 21:17 01/02/20 21:16 Vancomycin HCl (Vanco rx to dose) 1 ea DAILY PRN MISC Per rx protocol 12/05/19 11:45 01/04/20 11:44 Gabe Bush MD Dec 07, 2019 10:01
--- NOTE | 2019-12-07 10:40 | NUR ---
NURSE NOTES: Spoke with Dr. Sidhu regarding tunnel cath placement, dialysis, and possible blood transfusion today. Per Dr. Sidhu, tunnel cath placement, dialysis, and possible blood transfusion can be done tomorrow (12/08/2019) since it is not urgent. Notified abnormal labs including BUN, Cr, and Hemoglobin to Dr. Sidhu. No new order for today. Will endorse to next shift nurse. Will continue plan of care.
--- NOTE | 2019-12-07 11:12 | NUR ---
*-* DISCHARGE PLANNING *-* PATIENT HAS BEEN REFERRED TO: [facility] ATTN: KENZIE P: [phone] R: [phone]
--- NOTE | 2019-12-07 11:30 | NUR ---
NURSE NOTES: The patient went down for video swallow evaluation with primary RN. The patient is stable without acute distress or shortness of breath. Will continue plan of care.
[2019-12-07 12:00] VITALS: BP 128/64
--- NOTE | 2019-12-07 12:00 | NUR ---
NURSE NOTES: The patient went up from video swallow in a safe manner with primary RN. The patient is stable without acute distress or shortness of breath. Will continue plan of care.
--- NOTE | 2019-12-07 12:08 | Nephrology Progress Note ---
Assessment/Plan Problem List: (1) ARF (acute renal failure) (2) Acute respiratory failure (3) Septic shock (4) Anemia (5) History of hypertension (6) Diabetes mellitus (7) Acute on chronic systolic heart failure Assessment: ej Fx 40 Assessment Acute renal failure- ? Underlying CKD Respiratory failure Anemia Sepsis / Shock ? Pneumonia DM HTN by history Gout left BKA Cardiomyopathy - Ej Fx 40% Plan Plan: HD last 12/05 dialysis cath out 12/06 BCs and monitor WBCs Aim to do permacath when clear by ID on 12/08 and resume HD was transfused on coreg increase hydralazine discussed with ICU charger operator DC IV previously DC Hydrocortisone Antibiotics urine studies avoid nephrotoxics monitor renal parameters Anemia hairston per orders Subjective ROS Limited/Unobtainable: No Constitutional: Reports: malaise Objective Objective Last 24 Hour Vital Signs Date Time Temp Pulse Resp B/P (MAP) Pulse Ox O2 Delivery O2 Flow Rate FiO2 12/07/19 09:00 127/63 12/07/19 09:00 81 127/63 12/07/19 08:00 97.9 81 20 127/63 (84) 100 12/07/19 08:00 78 12/07/19 08:00 Nasal Cannula 5.0 Nasal Cannula 5.0 12/07/19 07:00 100 Nasal Cannula 5.0 40 12/07/19 06:20 122/58 12/07/19 04:00 Nasal Cannula 5.0 Nasal Cannula 5.0 12/07/19 04:00 98.0 79 22 127/57 (80) 95 12/07/19 04:00 5.0 12/07/19 03:23 78 12/07/19 00:19 126/58 12/07/19 00:00 Nasal Cannula 5.0 Nasal Cannula 5.0 12/07/19 00:00 98.1 75 20 126/58 (80) 94 12/07/19 00:00 5.0 12/06/19 23:46 78 12/06/19 21:44 74 122/58 12/06/19 20:00 Nasal Cannula 5.0 Nasal Cannula 5.0 12/06/19 20:00 98.1 74 20 122/58 (79) 98 12/06/19 20:00 5.0 12/06/19 19:14 75 12/06/19 17:15 110/57 12/06/19 17:15 110/57 12/06/19 16:00 5.0 12/06/19 16:00 98.9 79 20 110/57 (74) 100 12/06/19 16:00 75 12/06/19 16:00 Nasal Cannula 5.0 Nasal Cannula 5.0 12/06/19 12:21 114/57 12/06/19 12:20 114/57 Intake and Output 12/06/19 12/07/19 19:00 07:00 Intake Total 840 ml 200 ml Output Total 300 ml 200 ml Balance 540 ml 0 ml Intake Oral 500 ml 200 ml Free Water 100 ml Tube Feeding 240 ml Output Urine Total 300 ml 200 ml Current Medications Medications (Trade) Dose Ordered Sig/Valeriano Route PRN Reason Start Time Stop Time Status Last Admin Dose Admin Acetaminophen (Tylenol) 650 mg Q4H PRN NG Mild Pain/Temp > 100.5 12/03/19 21:15 01/02/20 21:14 12/04/19 00:47 Albuterol/ Ipratropium (Albuterol/ Ipratropium) 3 ml Q4H PRN HHN Shortness of Breath 12/03/19 21:16 12/08/19 21:15 Amlodipine Besylate (Norvasc) 2.5 mg DAILYPRN PRN NG sbp greater than 150 12/03/19 21:15 01/02/20 21:14 Carvedilol (Coreg) 12.5 mg EVERY 12 HOURS NG 12/03/19 22:00 01/02/20 21:59 12/06/19 21:44 Chlorhexidine Gluconate (Katia-Hex 2%) 1 applic DAILY@2000 TOPIC 12/04/19 20:00 12/25/19 19:59 12/05/19 20:05 Dextrose (Dextrose 50%) 25 ml Q30M PRN IV Hypoglycemia 12/03/19 21:30 12/24/19 13:29 Dextrose (Dextrose 50%) 50 ml Q30M PRN IV Hypoglycemia 12/03/19 21:30 12/24/19 13:29 Folic Acid (Folate) 5 mg DAILY GT 12/04/19 09:00 12/27/19 08:59 12/07/19 09:12 Heparin Sodium (Porcine) (Heparin 5000 units/ml) 5,000 units EVERY 12 HOURS SUBQ 12/03/19 22:00 01/02/20 21:59 12/06/19 09:07 Hydralazine HCl (Apresoline) 50 mg EVERY 6 HOURS GT 12/04/19 00:00 01/01/20 00:00 12/07/19 06:20 Insulin Aspart (NovoLOG) BEFORE MEALS AND HS SUBQ 12/03/19 21:14 01/02/20 21:13 12/06/19 17:14 Isosorbide Dinitrate (Isordil) 20 mg TID GT 12/04/19 09:00 01/01/20 08:59 12/06/19 17:15 Lansoprazole (Prevacid) 30 mg BID NG 12/04/19 09:00 12/30/19 17:59 12/07/19 09:13 Meropenem 500 mg/ Sodium Chloride 55 ml @ 110 mls/hr Q24H IVPB 12/04/19 12:00 12/10/19 11:59 12/06/19 12:21 Morphine Sulfate (Morphine Sulfate) 2 mg Q4H PRN IVP Severe Pain (Pain Scale 7-10) 12/03/19 21:17 12/10/19 21:16 12/05/19 00:33 Nitroglycerin (Ntg) 0.4 mg Q5M PRN SL Prn Chest Pain 12/03/19 21:17 01/02/20 21:16 Ondansetron HCl (Zofran) 4 mg Q6H PRN IVP Nausea & Vomiting 12/03/19 21:17 01/02/20 21:16 Polyethylene Glycol (Miralax) 17 gm DAILYPRN PRN NG Constipation 12/03/19 21:17 01/02/20 21:16 Promethazine HCl/ Codeine (Phenergan with Codeine) 5 ml Q4H PRN NG For Cough 12/03/19 21:17 01/02/20 21:16 Vancomycin HCl (Vanco rx to dose) 1 ea DAILY PRN MISC Per rx protocol 12/05/19 11:45 01/04/20 11:44 Laboratory Tests 12/07/19 04:20: White Blood Count 11.6H, Red Blood Count 2.63L, Hemoglobin 7.4L, Hematocrit 22.3L, Mean Corpuscular Volume 84, Mean Corpuscular Hemoglobin 28.1, Mean Corpuscular Hemoglobin Concent 33.3, Red Cell Distribution Width 13.5, Platelet Count 287, Mean Platelet Volume 5.5L, Neutrophils (%) (Auto) , Lymphocytes (%) ( Auto) , Monocytes (%) (Auto) , Eosinophils (%) (Auto) , Basophils (%) (Auto) , Erythrocyte Sedimentation Rate 135H, Sodium Level 136, Potassium Level 4.4, Chloride Level 96L, Carbon Dioxide Level 30, Anion Gap 10, Blood Urea Nitrogen 68H, Creatinine 7.0H, Estimat Glomerular Filtration Rate 9.8, Glucose Level 90, Uric Acid 5.9, Calcium Level 8.6, Phosphorus Level 6.5H, Magnesium Level 2.1, Total Bilirubin 0.4, Aspartate Amino Transf (AST/SGOT) 45H, Alanine Aminotransferase (ALT/SGPT) 34, Alkaline Phosphatase 133H, C-Reactive Protein, Quantitative 8.3H, Total Protein 6.5, Albumin 1.8L, Globulin 4.7, Albumin/ Globulin Ratio 0.4L, Random Vancomycin Level 27.3 Height (Feet): 5 Height (Inches): 8.00 Weight (Pounds): 233 General Appearance: no apparent distress Respiratory/Chest: decreased breath sounds Abdomen: soft Objective no change Tej Sidhu MD Dec 07, 2019 12:08
--- NOTE | 2019-12-07 12:39 | NUR ---
ST NOTES: PATIENT IS REFUSING DOWNGRADED PUREED DIET. HAS DENTURES THOUGH NOT AVAILABLE FOR MOD BARIUM SWALLOW STUDY (SO GIVEN SALTINE 1/4 PIECE WITH 3 CC PUDDING). ALSO GIVEN THIN LIQUIDS, NECTAR THICK LIQUIDS, HONEY THICK LIQUIDS AND PUDDING TSP. MODIFIED BARIUM SWALLOW STUDY COMPLETED, SEE FULL REPORT TO FOLLOW (WITH CARLENE MIRZA, PRESENT) MILD OROPHARYNGEAL DYSPHAGIA WITH MILD INCREASE IN OVERALL TRANSIT TIMES DUE TO SENSORIMOTOR DEFICITS AND COMPOUNDED BY RESP RATE INCREASES. NO ASPIRATION NOR SIGNIFICANT LARYNGEAL PENETRATION WITH ALL CONSISTENCIES. HAS RISK AND LESS EFFICIENT SWALLOW IF ASPIRATION/REFLUX AND SWALLOW STRATEGIES NOT USED. PLAN: UPGRADE TO SOFT CHEW DIET AND CONTINUE WITH THIN LIQUIDS WITH POSTED ASPIRATION/REFLUX PRECAUTIONS AND SUPERVISION (FOR RATE/AMOUNT OF INTAKE). PER RD, SEND CCHO-MED AND RENAL DIET TYPE. Addendum: 12/08/19 at 1036 by HANG GUZMÁN [employer] UPDATED SUMMARY OF MBSS: PATIENT IS REFUSING DOWNGRADED PUREED DIET (OK WITH THIN LIQUIDS AND WANTS CARBONATED LIQUIDS). HAS DENTURES THOUGH NOT AVAILABLE FOR MOD BARIUM SWALLOW STUDY. MODIFIED BARIUM SWALLOW STUDY COMPLETED, SEE FULL REPORT TO FOLLOW (WITH CARLENE MIRZA, PRESENT) Trials Comment THIN LIQUIDS TSP, TSP, CUP STRAW SEQUENTIAL NECTAR THICK LIQUIDS TSP, CUP, STRAW SEQUENTIAL HONEY THICK LIQUIDS TSP PUDDING TSP MASTICATED SOLID 1/4 SALTINE AND 3 CC PUDDING (NO DENTURES HERE NOW) MILD OROPHARYNGEAL DYSPHAGIA WITH MILD INCREASE IN OVERALL TRANSIT TIMES DUE TO SENSORIMOTOR DEFICITS AND COMPOUNDED BY RESP RATE INCREASES (WENT FROM BASELINE 14 TO 20 BPM AFTER STUDY). BEST TO KEEP RESP RATE TO NOT ABOVE 25 BPM. NO ASPIRATION NOR SIGNIFICANT LARYNGEAL PENETRATION WITH ALL CONSISTENCIES. HAS RISK AND LESS EFFICIENT SWALLOW IF ASPIRATION/REFLUX AND SWALLOW STRATEGIES NOT USED. THIN LIQUIDS HIGHER RISK BUT GROSSLY FUNCTIONAL (DISLIKES NECTAR THICK LIQUIDS). TRACE LARYNGEAL PENETRATION (NOT SIGNIFICANT) BEFORE THE SWALLOW ABOVE VOCAL FOLDS WITH EJECTION (NO NEED FOR COUGH) WITH 2ND TSP (NOT FIRST WARM-UP TSP), SELF SIP VIA CUP, AND SELF-FEEDING STRAW SEQUENTIAL SIPS OF THIN LIQUIDS. LP DUE TO DELAYED SWALLOW AND LATE CLOSURE OF LARYNGEAL VESTIBULE. HAS ASPIRATION AND PENETRATION RISK DUE TO THE FOLLOWING COMPONENTS: Oral Impairment Tongue Control Bolus transport/lingual motion Oral residue Initiation pharyngeal swallow Pharyngeal Impairment Laryngeal elevation (LE) Ant. hyoid excursion (AHE) Epiglottic movement Late laryngeal vestibule closure Pharyngeal stripping wave Pharyngeal contraction Pharyngeal segment opening Tongue base retraction Pharyngeal residue Decreased pharyngeal sensation (some cued ESOPHAGEAL PHASE GROSSLY FUNCTIONAL ONLY IN LATERAL VIEW HAS OSTEOPHYTE AT C6-7 THAT DOES NOT OBSTRUCT BOLUS FLOW BENEFITS FROM ONE SMALL SIP THIN LIQUIDS, REST IF SOB AND RESP RATE GOES UP (NOT ABOVE 25 BPM), MORE TIME, AND 2ND SOMETIMES CUED SWALLOW. PLAN: UPGRADE TO SOFT CHEW DIET AND CONTINUE WITH THIN LIQUIDS WITH POSTED ASPIRATION/REFLUX PRECAUTIONS AND SUPERVISION (FOR RATE/AMOUNT OF INTAKE). PER RD, SEND CCHO-MED AND RENAL DIET TYPE. CONTINUE WITH SKILLED DYSPHAGIA MANAGEMENT AND TX
--- NOTE | 2019-12-07 12:49 | Internal Med Progress Note ---
Subjective Date of Service: Dec 07, 2019 Physician Name Galaviz,Sidney Attending Physician Cezar Ceja MD Current Medications Medications (Trade) Dose Ordered Sig/Valeriano Route PRN Reason Start Time Stop Time Status Last Admin Dose Admin Acetaminophen (Tylenol) 650 mg Q4H PRN NG Mild Pain/Temp > 100.5 12/03/19 21:15 01/02/20 21:14 12/04/19 00:47 Albuterol/ Ipratropium (Albuterol/ Ipratropium) 3 ml Q4H PRN HHN Shortness of Breath 12/03/19 21:16 12/08/19 21:15 Amlodipine Besylate (Norvasc) 2.5 mg DAILYPRN PRN NG sbp greater than 150 12/03/19 21:15 01/02/20 21:14 Carvedilol (Coreg) 12.5 mg EVERY 12 HOURS NG 12/03/19 22:00 01/02/20 21:59 12/06/19 21:44 Chlorhexidine Gluconate (Katia-Hex 2%) 1 applic DAILY@2000 TOPIC 12/04/19 20:00 12/25/19 19:59 12/05/19 20:05 Dextrose (Dextrose 50%) 25 ml Q30M PRN IV Hypoglycemia 12/03/19 21:30 12/24/19 13:29 Dextrose (Dextrose 50%) 50 ml Q30M PRN IV Hypoglycemia 12/03/19 21:30 12/24/19 13:29 Folic Acid (Folate) 5 mg DAILY GT 12/04/19 09:00 12/27/19 08:59 12/07/19 09:12 Heparin Sodium (Porcine) (Heparin 5000 units/ml) 5,000 units EVERY 12 HOURS SUBQ 12/03/19 22:00 01/02/20 21:59 12/06/19 09:07 Hydralazine HCl (Apresoline) 50 mg EVERY 6 HOURS GT 12/04/19 00:00 01/01/20 00:00 12/07/19 06:20 Insulin Aspart (NovoLOG) BEFORE MEALS AND HS SUBQ 12/03/19 21:14 01/02/20 21:13 12/06/19 17:14 Isosorbide Dinitrate (Isordil) 20 mg TID GT 12/04/19 09:00 01/01/20 08:59 12/06/19 17:15 Lansoprazole (Prevacid) 30 mg BID NG 12/04/19 09:00 12/30/19 17:59 12/07/19 09:13 Meropenem 500 mg/ Sodium Chloride 55 ml @ 110 mls/hr Q24H IVPB 12/04/19 12:00 12/10/19 11:59 12/06/19 12:21 Morphine Sulfate (Morphine Sulfate) 2 mg Q4H PRN IVP Severe Pain (Pain Scale 7-10) 12/03/19 21:17 12/10/19 21:16 12/05/19 00:33 Nitroglycerin (Ntg) 0.4 mg Q5M PRN SL Prn Chest Pain 12/03/19 21:17 01/02/20 21:16 Ondansetron HCl (Zofran) 4 mg Q6H PRN IVP Nausea & Vomiting 12/03/19 21:17 01/02/20 21:16 Polyethylene Glycol (Miralax) 17 gm DAILYPRN PRN NG Constipation 12/03/19 21:17 01/02/20 21:16 Promethazine HCl/ Codeine (Phenergan with Codeine) 5 ml Q4H PRN NG For Cough 12/03/19 21:17 01/02/20 21:16 Vancomycin HCl (Vanco rx to dose) 1 ea DAILY PRN MISC Per rx protocol 12/05/19 11:45 01/04/20 11:44 Allergies: Coded Allergies: No Known Allergies (Unverified , 11/24/19) ROS Limited/Unobtainable: No Constitutional: Reports: no symptoms HEENT: Reports: no symptoms Cardiovascular: Reports: no symptoms Respiratory: Reports: no symptoms Gastrointestinal/Abdominal: Reports: no symptoms Genitourinary: Reports: no symptoms Neurologic/Psychiatric: Reports: no symptoms Subjective 59 YO M admitted with respiratory failure. Cover for Int Qamar-Dr Ceja. JA Objective Last Vital Signs Date Time Temp Pulse Resp B/P (MAP) Pulse Ox O2 Delivery O2 Flow Rate FiO2 12/07/19 09:00 127/63 12/07/19 09:00 81 12/07/19 08:00 97.9 20 100 12/07/19 08:00 Nasal Cannula 5.0 Nasal Cannula 5.0 12/07/19 07:00 40 Laboratory Tests Test 12/07/19 04:20 White Blood Count 11.6 K/UL (4.8-10.8) H Red Blood Count 2.63 M/UL (4.70-6.10) L Hemoglobin 7.4 G/DL (14.2-18.0) L Hematocrit 22.3 % (42.0-52.0) L Mean Corpuscular Volume 84 FL (80-99) Mean Corpuscular Hemoglobin 28.1 PG (27.0-31.0) Mean Corpuscular Hemoglobin Concent 33.3 G/DL (32.0-36.0) Red Cell Distribution Width 13.5 % (11.6-14.8) Platelet Count 287 K/UL (150-450) Mean Platelet Volume 5.5 FL (6.5-10.1) L Neutrophils (%) (Auto) % (45.0-75.0) Lymphocytes (%) (Auto) % (20.0-45.0) Monocytes (%) (Auto) % (1.0-10.0) Eosinophils (%) (Auto) % (0.0-3.0) Basophils (%) (Auto) % (0.0-2.0) Erythrocyte Sedimentation Rate 135 MM/HR (0-20) H Sodium Level 136 MMOL/L (136-145) Potassium Level 4.4 MMOL/L (3.5-5.1) Chloride Level 96 MMOL/L (98-107) L Carbon Dioxide Level 30 MMOL/L (21-32) Anion Gap 10 mmol/L (5-15) Blood Urea Nitrogen 68 mg/dL (7-18) H Creatinine 7.0 MG/DL (0.55-1.30) H Estimat Glomerular Filtration Rate 9.8 mL/min (>60) Glucose Level 90 MG/DL (74-106) Uric Acid 5.9 MG/DL (2.6-7.2) Calcium Level 8.6 MG/DL (8.5-10.1) Phosphorus Level 6.5 MG/DL (2.5-4.9) H Magnesium Level 2.1 MG/DL (1.8-2.4) Total Bilirubin 0.4 MG/DL (0.2-1.0) Aspartate Amino Transf (AST/SGOT) 45 U/L (15-37) H Alanine Aminotransferase (ALT/SGPT) 34 U/L (12-78) Alkaline Phosphatase 133 U/L (46-116) H C-Reactive Protein, Quantitative 8.3 mg/dL (0.00-0.90) H Total Protein 6.5 G/DL (6.4-8.2) Albumin 1.8 G/DL (3.4-5.0) L Globulin 4.7 g/dL Albumin/Globulin Ratio 0.4 (1.0-2.7) L Random Vancomycin Level 27.3 ug/mL Microbiology Date/Time Source Procedure Growth Status 12/05/19 11:55 Blood Blood Culture - Preliminary NO GROWTH AFTER 24 HOURS Resulted 12/05/19 11:45 Blood Blood Culture - Preliminary NO GROWTH AFTER 24 HOURS Resulted 12/06/19 07:57 Other(Specify in comment) Catheter Tip Culture - Preliminary NO GROWTH AFTER 24 HOURS Resulted Intake and Output 12/06/19 12/07/19 19:00 07:00 Intake Total 840 ml 200 ml Output Total 300 ml 200 ml Balance 540 ml 0 ml Intake Oral 500 ml 200 ml Free Water 100 ml Tube Feeding 240 ml Output Urine Total 300 ml 200 ml Objective PHYSICAL EXAMINATION: GENERAL: The patient is a well-developed and well-nourished male, in moderate respiratory distress. HEENT: Eyes, pupils are equal and responsive to light and accommodation. Extraocular movements are intact. NECK: Supple without lymphadenopathy. CHEST: nasal canula; Mechanical breath sounds, otherwise without wheezes or rales. CARDIOVASCULAR: Regular rate. S1 and S2 normal without murmurs, rubs, or gallops. ABDOMEN: Soft, nontender, and nondistended. Positive bowel sounds. No evidence of hepatosplenomegaly. Currently, no rebound or guarding noted. EXTREMITIES: Negative for clubbing, cyanosis, or edema. RECTAL/GENITAL: Refused. NEUROLOGIC: Cranial nerves II through XII are grossly intact without focal deficits. Assessment/Plan Assessment/Plan ASSESSMENT: This is a 59-year-old male. 1. Respiratory failure. 2. Pneumonia. 3. Probable sepsis. 4. Diabetes type 2. 5. Hypertension. 6. Hypercholesterolemia. TREATMENT: 1. Respiratory failure/pneumonia. The patient is currently tolerating nasal canula in the intensive care unit. A Pulmonary consultation has been obtained with Dr. Brandy Milton. Sputum=ESBL E. Coli. ABX=meropenem and vanco. ID=Dr Souza Continue Tamiflu per ID=Dr Andrade. We will follow recommendations of Pulmonary. 2. Sepsis. Blood cultures=Staph Hominis. ABX=meropenem and vanco 3. Diabetes type 2. A NovoLog sliding scale has been instituted. 4. Hypertension. The patient is currently hypotensive. Hold antihypertensive medication. 5. Hypercholesterolemia. Continue atorvastatin as above. Sidney Galaviz MD Dec 07, 2019 12:48
[2019-12-07] MEDS: Meropenem 500 MG in NS 55 ML IVPB SCH (13:29)
--- NOTE | 2019-12-07 13:47 | Surgery Progress Note ---
Surgery Progress Note Subjective Procedure Performed Right femoral temporary hemodialysis catheter removal Additional Comments wbc improved cath tip cx negative blood cx negative stable Objective Last 24 Hour Vital Signs Date Time Temp Pulse Resp B/P (MAP) Pulse Ox O2 Delivery O2 Flow Rate FiO2 12/07/19 13:30 128/64 12/07/19 13:28 128/64 12/07/19 09:00 127/63 12/07/19 09:00 81 127/63 12/07/19 08:00 97.9 81 20 127/63 (84) 100 12/07/19 08:00 78 12/07/19 08:00 Nasal Cannula 5.0 Nasal Cannula 5.0 12/07/19 07:00 100 Nasal Cannula 5.0 40 12/07/19 06:20 122/58 12/07/19 04:00 Nasal Cannula 5.0 Nasal Cannula 5.0 12/07/19 04:00 98.0 79 22 127/57 (80) 95 12/07/19 04:00 5.0 12/07/19 03:23 78 12/07/19 00:19 126/58 12/07/19 00:00 Nasal Cannula 5.0 Nasal Cannula 5.0 12/07/19 00:00 98.1 75 20 126/58 (80) 94 12/07/19 00:00 5.0 12/06/19 23:46 78 12/06/19 21:44 74 122/58 12/06/19 20:00 Nasal Cannula 5.0 Nasal Cannula 5.0 12/06/19 20:00 98.1 74 20 122/58 (79) 98 12/06/19 20:00 5.0 12/06/19 19:14 75 12/06/19 17:15 110/57 12/06/19 17:15 110/57 12/06/19 16:00 5.0 12/06/19 16:00 98.9 79 20 110/57 (74) 100 12/06/19 16:00 75 12/06/19 16:00 Nasal Cannula 5.0 Nasal Cannula 5.0 I&O Intake and Output 12/06/19 12/07/19 19:00 07:00 Intake Total 840 ml 200 ml Output Total 300 ml 200 ml Balance 540 ml 0 ml Intake Oral 500 ml 200 ml Free Water 100 ml Tube Feeding 240 ml Output Urine Total 300 ml 200 ml Dressing: other Wound: other Drains: other Cardiovascular: RSR Respiratory: decreased breath sounds Abdomen: soft, present bowel sounds Extremities: no cyanosis Laboratory Tests Test 12/07/19 04:20 White Blood Count 11.6 K/UL (4.8-10.8) H Red Blood Count 2.63 M/UL (4.70-6.10) L Hemoglobin 7.4 G/DL (14.2-18.0) L Hematocrit 22.3 % (42.0-52.0) L Mean Corpuscular Volume 84 FL (80-99) Mean Corpuscular Hemoglobin 28.1 PG (27.0-31.0) Mean Corpuscular Hemoglobin Concent 33.3 G/DL (32.0-36.0) Red Cell Distribution Width 13.5 % (11.6-14.8) Platelet Count 287 K/UL (150-450) Mean Platelet Volume 5.5 FL (6.5-10.1) L Neutrophils (%) (Auto) % (45.0-75.0) Lymphocytes (%) (Auto) % (20.0-45.0) Monocytes (%) (Auto) % (1.0-10.0) Eosinophils (%) (Auto) % (0.0-3.0) Basophils (%) (Auto) % (0.0-2.0) Erythrocyte Sedimentation Rate 135 MM/HR (0-20) H Sodium Level 136 MMOL/L (136-145) Potassium Level 4.4 MMOL/L (3.5-5.1) Chloride Level 96 MMOL/L (98-107) L Carbon Dioxide Level 30 MMOL/L (21-32) Anion Gap 10 mmol/L (5-15) Blood Urea Nitrogen 68 mg/dL (7-18) H Creatinine 7.0 MG/DL (0.55-1.30) H Estimat Glomerular Filtration Rate 9.8 mL/min (>60) Glucose Level 90 MG/DL (74-106) Uric Acid 5.9 MG/DL (2.6-7.2) Calcium Level 8.6 MG/DL (8.5-10.1) Phosphorus Level 6.5 MG/DL (2.5-4.9) H Magnesium Level 2.1 MG/DL (1.8-2.4) Total Bilirubin 0.4 MG/DL (0.2-1.0) Aspartate Amino Transf (AST/SGOT) 45 U/L (15-37) H Alanine Aminotransferase (ALT/SGPT) 34 U/L (12-78) Alkaline Phosphatase 133 U/L (46-116) H C-Reactive Protein, Quantitative 8.3 mg/dL (0.00-0.90) H Total Protein 6.5 G/DL (6.4-8.2) Albumin 1.8 G/DL (3.4-5.0) L Globulin 4.7 g/dL Albumin/Globulin Ratio 0.4 (1.0-2.7) L Random Vancomycin Level 27.3 ug/mL Plan Problems: (1) Septic shock Assessment & Plan: Patient in septic shock prior central line and pressors intubated on vent support in the intensive care unit tachycardic. Renal insufficiency requiring hemodialysis. Temporary hemodialysis catheter indicated and recommended Please see procedure note Dialysis as per nephrology IV antibiotics post per infectious disease Dressing changes as per protocol We will monitor site for hematoma or infection No further acute surgical intervention recommended at this time will follow with recommendations thank you for let me participate patient's care extubated improved downgraded discussed care plan with family consent obtained plan to change to tunneled cath thursday (2) Acute respiratory failure Assessment & Plan: DAILY ESTIMATED NEEDS: Needs based on Critical care, sepsis 75kg adj 22-28 kcals/kg [id number] total kcals 1.2-2 g protein/kg 90-150 g total protein 25-30 mL/kg 4557-5778 total fluid mLs NUTRITION DIAGNOSIS: Swallowing difficulty r/t resp status as evidenced by septic shock now s/p intubation, w/ NGT, NPO at this time. ENTERAL NUTRITION RECOMMENDATIONS: Nepro @40ml/hr x24 hrs + Prosource BID to provide 960ml, 78g + 22 g pro, 698ml free H2O - As medically appropriate, rec non oral feeds via NGT - Start Nepro @20ml/hr for 6 hrs. Advance as tolerated 10ml/hr q4-6 hrs to goal. - Add Prosource BID to better meet est pro needs - Flush per . HOB over 30 degrees -------- ADDITIONAL RECOMMENDATIONS: 1) Tf recs as above, feed as medically able 2) Ad PROSOURCE VIA NGT BID to better meet est pro needs 3) Per SNF: 69inches tall, last wt of 210 lbs (2/3) -> rec weekly calibrated bed scale wts 4) HIM CLERK eval upon extubation (3) Sepsis Assessment & Plan: discussed with ID hold on line placement Line removed plan for line holiday then placement of tunneled cath blood cx negative (4) History of left below knee amputation Assessment & Plan: Wound stable dressings intact elevate with pillow sacral wound needs to be addressed now that he is slowly improving start lola will consider debridement of stage 4 wound necrotic tissue and slough as improves Ranjit Ralph Dec 07, 2019 13:47
[2019-12-07] MEDS ORDERED: Varibar Thin Liquid powder 148gm MC PRN (15:45)
[2019-12-07] MEDS ORDERED: Varibar Honey 250ml MC PRN (15:45)
[2019-12-07] MEDS ORDERED: Varibar Nectar 240ml MC PRN (15:45)
[2019-12-07] MEDS ORDERED: Varibar Pudding 230ml MC PRN (15:45)
[2019-12-07 16:00] VITALS: BP 106/59
--- NOTE | 2019-12-07 16:00 | NUR ---
NURSE NOTES: The patient is stable without acute distress or shortness of breath. The patient tolerated soft easy chew diet well. Will continue plan of care.
--- NOTE | 2019-12-07 17:00 | NUR ---
NURSE NOTES: Spoke with Cat @ [facility] for confirmation of HD schedule for 12/08/2019. Will continue plan of care.
--- NOTE | 2019-12-07 18:00 | NUR ---
NURSE NOTES: The patient is stable without acute distress or shortness of breath. Will continue plan of care.
--- NOTE | 2019-12-07 19:20 | NUR ---
HAND-OFF: Report given to YUKI Martínez. The patient is resting on the bed without acute distress or shortness of breath. The patient's bed in the lowest position, call light in reach, and fall and aspiration precaution reinforced. IV site intact and patent. 5L NC for oxygen therapy, and oxygen saturation within normal range. Cruz intact and draining well. Endorsed that the patient is scheduled for tunnel cath placement with HD on 12/08/2019. Called [facility] for HD input order for 12/08/2019. Endorsed plan of care.
--- NOTE | 2019-12-07 19:22 | NUR ---
NURSE NOTES: Report received from YUKI Andrew. Observed pt lying in the bed. A/O x4, denies any pain at this time. SR on customs agent. On NC 5L, no sob noted. Abd soft, round, non-tender. F/C intact and draining to gravity. IV on L W 20G, R H 20G, SL. No acute distress noted at this time. Bed in the lowest position. Side rails up x3. Will continue to monitor.
[2019-12-07 20:00] VITALS: BP 128/67
--- NOTE | 2019-12-07 20:03 | NUR ---
DEPUTY HEAD: REVIEW SI: SEPSIS . ACUTE RENAL INSUFFICIENCY . LEFT BELOW KNEE AMPUTATION T 97.9 HR 84 RR 18 BP 104/59 SAT 100% NC/5L WBC 11.6 H/H 7.4/22.3 RIGHT FEMORAL TEMPORARY HEMODIALYSIS CATHETER INSERTION 11/27 IS: MEROPENEM IV Q24HR NS IVF 55ML/HR HEPARIN SUBQ HD PRN WOUND CARE PRN POSSIBLE DEBRIDEMENT / BKA STAGE 4 WOUND TUNNEL HD CATH PLACEMENT PENDING STEP DOWN UNIT STATUS DCP: PATIENT IS FROM [facility]
--- NOTE | 2019-12-07 20:44 | Cardiology Progress Note ---
Assessment/Plan Assessment/Plan 1. Respiratory failure, probably pneumonia. 2. chf acute systolic 3. History of aortic valve replacement per records but no surgical scar on the chest wall.(pt denies avr) 4. History of coronary artery disease, unknown details. 5. Abnormal cardiac enzymes likely secondary to demand 6. septic shock 7. renal failure 8. metabolic respiratory acidosis 9. ARDS sed rate dig elelvated abx hhn observe dialysis tele sinus Objective Last 24 Hour Vital Signs Date Time Temp Pulse Resp B/P (MAP) Pulse Ox O2 Delivery O2 Flow Rate FiO2 12/07/19 20:00 97.9 79 18 128/67 (87) 100 12/07/19 17:40 104/59 12/07/19 17:39 104/59 12/07/19 16:00 81 12/07/19 16:00 Nasal Cannula 5.0 Nasal Cannula 5.0 12/07/19 16:00 97.9 84 18 106/59 (75) 100 12/07/19 13:30 128/64 12/07/19 13:28 128/64 12/07/19 12:00 98.0 84 20 128/64 (85) 100 12/07/19 12:00 78 12/07/19 12:00 Nasal Cannula 5.0 Nasal Cannula 5.0 12/07/19 09:00 127/63 12/07/19 09:00 81 127/63 12/07/19 08:00 97.9 81 20 127/63 (84) 100 12/07/19 08:00 78 12/07/19 08:00 Nasal Cannula 5.0 Nasal Cannula 5.0 12/07/19 07:00 100 Nasal Cannula 5.0 40 12/07/19 06:20 122/58 12/07/19 04:00 Nasal Cannula 5.0 Nasal Cannula 5.0 12/07/19 04:00 98.0 79 22 127/57 (80) 95 12/07/19 04:00 5.0 12/07/19 03:23 78 12/07/19 00:19 126/58 12/07/19 00:00 Nasal Cannula 5.0 Nasal Cannula 5.0 12/07/19 00:00 98.1 75 20 126/58 (80) 94 12/07/19 00:00 5.0 12/06/19 23:46 78 12/06/19 21:44 74 122/58 General Appearance: no apparent distress, alert Intake and Output 12/06/19 12/07/19 19:00 07:00 Intake Total 840 ml 200 ml Output Total 300 ml 200 ml Balance 540 ml 0 ml Intake Oral 500 ml 200 ml Free Water 100 ml Tube Feeding 240 ml Output Urine Total 300 ml 200 ml Laboratory Tests Test 12/07/19 04:20 White Blood Count 11.6 K/UL (4.8-10.8) H Red Blood Count 2.63 M/UL (4.70-6.10) L Hemoglobin 7.4 G/DL (14.2-18.0) L Hematocrit 22.3 % (42.0-52.0) L Mean Corpuscular Volume 84 FL (80-99) Mean Corpuscular Hemoglobin 28.1 PG (27.0-31.0) Mean Corpuscular Hemoglobin Concent 33.3 G/DL (32.0-36.0) Red Cell Distribution Width 13.5 % (11.6-14.8) Platelet Count 287 K/UL (150-450) Mean Platelet Volume 5.5 FL (6.5-10.1) L Neutrophils (%) (Auto) % (45.0-75.0) Lymphocytes (%) (Auto) % (20.0-45.0) Monocytes (%) (Auto) % (1.0-10.0) Eosinophils (%) (Auto) % (0.0-3.0) Basophils (%) (Auto) % (0.0-2.0) Erythrocyte Sedimentation Rate 135 MM/HR (0-20) H Sodium Level 136 MMOL/L (136-145) Potassium Level 4.4 MMOL/L (3.5-5.1) Chloride Level 96 MMOL/L (98-107) L Carbon Dioxide Level 30 MMOL/L (21-32) Anion Gap 10 mmol/L (5-15) Blood Urea Nitrogen 68 mg/dL (7-18) H Creatinine 7.0 MG/DL (0.55-1.30) H Estimat Glomerular Filtration Rate 9.8 mL/min (>60) Glucose Level 90 MG/DL (74-106) Uric Acid 5.9 MG/DL (2.6-7.2) Calcium Level 8.6 MG/DL (8.5-10.1) Phosphorus Level 6.5 MG/DL (2.5-4.9) H Magnesium Level 2.1 MG/DL (1.8-2.4) Total Bilirubin 0.4 MG/DL (0.2-1.0) Aspartate Amino Transf (AST/SGOT) 45 U/L (15-37) H Alanine Aminotransferase (ALT/SGPT) 34 U/L (12-78) Alkaline Phosphatase 133 U/L (46-116) H C-Reactive Protein, Quantitative 8.3 mg/dL (0.00-0.90) H Total Protein 6.5 G/DL (6.4-8.2) Albumin 1.8 G/DL (3.4-5.0) L Globulin 4.7 g/dL Albumin/Globulin Ratio 0.4 (1.0-2.7) L Random Vancomycin Level 27.3 ug/mL Microbiology Date/Time Source Procedure Growth Status 12/05/19 11:55 Blood Blood Culture - Preliminary NO GROWTH AFTER 24 HOURS Resulted 12/05/19 11:45 Blood Blood Culture - Preliminary NO GROWTH AFTER 24 HOURS Resulted 12/06/19 07:57 Other(Specify in comment) Catheter Tip Culture - Preliminary NO GROWTH AFTER 24 HOURS Resulted Antonio Byrd MD Dec 07, 2019 20:44
[2019-12-07] MEDS: Dyna-Hex 2% Top Sol 2oz TOPIC SCH (20:49)
[2019-12-07] MEDS: Acetaminophen 650mg/20.3ml NG PRN (20:51)
--- NOTE | 2019-12-07 22:10 | NUR ---
NURSE NOTES: Received pt from YUKI Martínez. pt is observed resting in bed, eyes open, watching tv. pt denies pain at this time. pt is on 5 L O2 via NC, tolerating well. no s/sx of respiratory distress noted. playground monitor shows NSR at this time, no acute cardiac distress noted. skin alterations noted. LW 20 g and RH 20 g IV sites are patent and intact, asymptomatic. bed in lowest position and locked, siderails up X3, call light within reach. will continue to monitor.
[2019-12-08] VITALS (7 sets, daily range): BP systolic 109–128; BP diastolic 51–75
[2019-12-08] MEDS: HydrALAZINE 50mg tab GT SCH ×4 (00:41→17:18)
--- NOTE | 2019-12-08 02:09 | NUR ---
HAND-OFF: Report given to YUKI Martínez. pt is in stable condition.
--- NOTE | 2019-12-08 02:40 | NUR ---
NURSE NOTES: Pt sleeping in the bed. No acute distress noted at this time. SR on satellite project site monitor. On 5L NC, with no SOB. Will continue to monitor.
[2019-12-08 05:31] LABS: HEMATOCRIT 22.2 % (42.0-52.0); HEMOGLOBIN 7.4 G/DL (14.2-18.0); MEAN CORPUSCULAR VOLUME 85 FL (80-99); PLATELET COUNT 328 K/UL (150-450); RED BLOOD COUNT 2.61 M/UL (4.70-6.10); RED CELL DISTRIBUTION WIDTH 13.4 % (11.6-14.8); WHITE BLOOD COUNT 9.8 K/UL (4.8-10.8)
[2019-12-08] MEDS: NovoLOG Insulin Flexpen SUBQ SCH ×4 (05:34→21:00)
[2019-12-08 05:44] LABS: PHOSPHORUS 8.1 MG/DL (2.5-4.9)
[2019-12-08 05:50] LABS: ALANINE AMINOTRANSFERASE 28 U/L (12-78); ALBUMIN 1.9 G/DL (3.4-5.0); ALBUMIN/GLOBULIN RATIO 0.4 (1.0-2.7); ALKALINE PHOSPHATASE 128 U/L (46-116); ANION GAP 12 mmol/L (5-15); ASPARTATE AMINO TRANSFERASE 34 U/L (15-37); BILIRUBIN,TOTAL 0.4 MG/DL (0.2-1.0); BLOOD UREA NITROGEN 81 mg/dL (7-18); CALCIUM 8.3 MG/DL (8.5-10.1); CARBON DIOXIDE 28 MMOL/L (21-32); CHLORIDE 97 MMOL/L (98-107); CREATININE 8.6 MG/DL (0.55-1.30); POTASSIUM 4.7 MMOL/L (3.5-5.1); SODIUM 137 MMOL/L (136-145)
--- NOTE | 2019-12-08 07:19 | NUR ---
HAND-OFF: Report given to YUKI Browning. No acute distress noted at this time.
--- NOTE | 2019-12-08 07:20 | NUR ---
NURSE NOTES: Received report from YUKI Martínez. The patient is observed resting in bed without acute distress or shortness of breath, A&Ox3. The patient's bed in the lowest position, call light in reach. IV site Rt Hand 22g intact and patent. 5L O2 via NC. Tunneled cath placement scheduled for today, Consent in chart. Dialysis scheduled for today. Will continue plan of care.
[2019-12-08] MEDS: Carvedilol 12.5mg tab NG SCH ×2 (08:18→21:00)
[2019-12-08] MEDS: Heparin 5000 units/ml inj SUBQ SCH ×2 (08:28→21:00)
[2019-12-08] MEDS: Dakin's 0.125% Soln (Quarter Strength) 16oz TOPIC SCH (08:28)
[2019-12-08] MEDS ORDERED: Heparin1,000 units/500ml Premix(Conc:2 units/ml) INJ PRN (09:00)
[2019-12-08] MEDS ORDERED: Lidocaine 1% Plain 30 ml INJ PRN (09:00)
--- NOTE | 2019-12-08 09:33 | Pre-Procedure Note/Attestation ---
Pre-Procedure Note/Attestation Complete Prior to Procedure Planned Procedure: not applicable Procedure Narrative: permacath Indications for Procedure Pre-Operative Diagnosis: renal failure Attestation I attest that I discussed the nature of the procedure; its benefits; risks and complications; and alternatives (and the risks and benefits of such alternatives ), prior to the procedure, with the patient (or the patient's legal business development representative). I attest that, if there was a reasonable possibility of needing a blood transfusion, the patient (or the patient's legal business development representative) was given the [facility] standardized written summary, pursuant to the [employer] Guadalupe Vasquez Blood Safety Act ([place] Health and Safety Code # 1645, as amended). I attest that I re-evaluated the patient just prior to the surgery and that there has been no change in the patient's H&P, except as documented below: Basilio Rodriguez MD Dec 08, 2019 09:33
[2019-12-08] MEDS ORDERED: ceFAZolin 1gm/50ml Premix 50 ML IV ONE (10:00)
--- NOTE | 2019-12-08 10:30 | NUR ---
NURSE NOTES: Pt back from radiology, s/p placement of a tunneled dialysis catheter. Pt tolerated procedure well
--- NOTE | 2019-12-08 10:45 | Brief Operative Note ---
Immediate Post Operative Note Operative Note Pre-op Diagnosis: renal failure Procedure: R IJV permacath Post-op Diagnosis: same as pre-op Surgeon: Darlyn Nava Specimen: none Complications: none Fluids: none Implant(s) used?: No Basilio Nava MD Dec 08, 2019 10:45
[2019-12-08] MEDS: Morphine Sulfate 2mg/ml Inj(IV/IM USE ONLY) IVP PRN (10:52)
--- NOTE | 2019-12-08 10:53 | NUR ---
RADIOLOGY NOTE: RIJ TUNNELED DIALYSIS CATHETER PLACEMENT BY DR. TRISTAN LLOYD. FA
--- NOTE | 2019-12-08 11:13 | Nephrology Progress Note ---
Assessment/Plan Problem List: (1) ARF (acute renal failure) (2) Acute respiratory failure (3) Septic shock (4) Anemia (5) History of hypertension (6) Diabetes mellitus (7) Acute on chronic systolic heart failure Assessment: ej Fx 40 Assessment Acute renal failure- ? Underlying CKD Respiratory failure Anemia Sepsis / Shock ? Pneumonia DM HTN by history Gout left BKA Cardiomyopathy - Ej Fx 40% Plan Plan: Has permacath- due for dialysis today DC quiñones ? Transfuse add phos binders was transfused previously on coreg increase hydralazine discussed with ICU credit charge authorizer DC IV previously DC Hydrocortisone Antibiotics urine studies avoid nephrotoxics monitor renal parameters Anemia hairston per orders Subjective ROS Limited/Unobtainable: No Constitutional: Reports: malaise Objective Objective Last 24 Hour Vital Signs Date Time Temp Pulse Resp B/P (MAP) Pulse Ox O2 Delivery O2 Flow Rate FiO2 12/08/19 09:11 74 12 2.0 12/08/19 08:24 100 Nasal Cannula 4.0 36 12/08/19 08:24 76 18 100 Nasal Cannula 4.0 36 12/08/19 08:18 78 123/66 12/08/19 08:17 123/66 12/08/19 08:00 Nasal Cannula 3.0 Nasal Cannula 3.0 12/08/19 08:00 71 12/08/19 08:00 98.3 74 20 123/66 (85) 100 12/08/19 05:36 133/76 12/08/19 04:00 73 12/08/19 04:00 Nasal Cannula 5.0 Nasal Cannula 5.0 12/08/19 04:00 98.0 76 24 128/65 (86) 100 12/08/19 00:41 124/65 12/08/19 00:00 98.0 77 20 124/65 (84) 100 12/08/19 00:00 Nasal Cannula 5.0 Nasal Cannula 5.0 12/08/19 00:00 74 12/07/19 20:50 79 128/67 12/07/19 20:00 97.9 79 18 128/67 (87) 100 12/07/19 20:00 Nasal Cannula 5.0 Nasal Cannula 5.0 12/07/19 20:00 79 12/07/19 19:58 100 Nasal Cannula 5.0 40 12/07/19 17:40 104/59 12/07/19 17:39 104/59 12/07/19 16:00 81 12/07/19 16:00 Nasal Cannula 5.0 Nasal Cannula 5.0 12/07/19 16:00 97.9 84 18 106/59 (75) 100 12/07/19 13:30 128/64 12/07/19 13:28 128/64 12/07/19 12:00 98.0 84 20 128/64 (85) 100 12/07/19 12:00 78 12/07/19 12:00 Nasal Cannula 5.0 Nasal Cannula 5.0 Intake and Output 12/07/19 12/08/19 19:00 07:00 Intake Total 1000 ml 240 ml Output Total 400 ml 100 ml Balance 600 ml 140 ml Intake Oral 1000 ml 240 ml Output Urine Total 400 ml 100 ml Current Medications Medications (Trade) Dose Ordered Sig/Valeriano Route PRN Reason Start Time Stop Time Status Last Admin Dose Admin Acetaminophen (Tylenol) 650 mg Q4H PRN NG Mild Pain/Temp > 100.5 12/03/19 21:15 01/02/20 21:14 12/07/19 20:51 Albuterol/ Ipratropium (Albuterol/ Ipratropium) 3 ml Q4H PRN HHN Shortness of Breath 12/03/19 21:16 12/08/19 21:15 Amlodipine Besylate (Norvasc) 2.5 mg DAILYPRN PRN NG sbp greater than 150 12/03/19 21:15 01/02/20 21:14 Barium Sulfate (Varibar Honey) 250 ml NOW PRN MC RAD 12/07/19 15:45 12/10/19 15:38 Barium Sulfate (Varibar [place]) 240 ml NOW PRN MC RAD 12/07/19 15:45 12/10/19 15:38 Barium Sulfate (Varibar Pudding) 230 ml NOW PRN MC RAD 12/07/19 15:45 12/10/19 15:38 Barium Sulfate (Varibar Thin Liquid powder) 148 gm NOW PRN MC RAD 12/07/19 15:45 12/10/19 15:38 Carvedilol (Coreg) 12.5 mg EVERY 12 HOURS NG 12/03/19 22:00 01/02/20 21:59 12/08/19 08:18 Chlorhexidine Gluconate (Katia-Hex 2%) 1 applic DAILY@2000 TOPIC 12/04/19 20:00 12/25/19 19:59 12/07/19 20:49 Dextrose (Dextrose 50%) 25 ml Q30M PRN IV Hypoglycemia 12/03/19 21:30 12/24/19 13:29 Dextrose (Dextrose 50%) 50 ml Q30M PRN IV Hypoglycemia 12/03/19 21:30 12/24/19 13:29 Folic Acid (Folate) 5 mg DAILY GT 12/04/19 09:00 12/27/19 08:59 12/08/19 08:19 Heparin Sodium (Porcine) (Heparin 5000 units/ml) 5,000 units EVERY 12 HOURS SUBQ 12/03/19 22:00 01/02/20 21:59 12/06/19 09:07 Heparin Sodium/ Sodium Chloride (Heparin 1000 units/500ml Premix) 1,000 unit ONCE PRN INJ RADIOLOGY 12/08/19 09:00 12/08/19 23:59 Hydralazine HCl (Apresoline) 50 mg EVERY 6 HOURS GT 12/04/19 00:00 01/01/20 00:00 12/08/19 05:36 Insulin Aspart (NovoLOG) BEFORE MEALS AND HS SUBQ 12/03/19 21:14 01/02/20 21:13 12/06/19 17:14 Isosorbide Dinitrate (Isordil) 20 mg TID GT 12/04/19 09:00 01/01/20 08:59 12/08/19 08:17 Lansoprazole (Prevacid) 30 mg BID NG 12/04/19 09:00 12/30/19 17:59 12/08/19 08:18 Lidocaine HCl (Xylocaine 1% 30ml) 30 ml ONCE PRN INJ RADIOLOGY 12/08/19 09:00 12/08/19 23:59 Meropenem 500 mg/ Sodium Chloride 55 ml @ 110 mls/hr Q24H IVPB 12/04/19 12:00 12/10/19 11:59 12/07/19 13:29 Morphine Sulfate (Morphine Sulfate) 2 mg Q4H PRN IVP Severe Pain (Pain Scale 7-10) 12/03/19 21:17 12/10/19 21:16 12/08/19 10:52 Nitroglycerin (Ntg) 0.4 mg Q5M PRN SL Prn Chest Pain 12/03/19 21:17 01/02/20 21:16 Ondansetron HCl (Zofran) 4 mg Q6H PRN IVP Nausea & Vomiting 12/03/19 21:17 01/02/20 21:16 Polyethylene Glycol (Miralax) 17 gm DAILYPRN PRN NG Constipation 12/03/19 21:17 01/02/20 21:16 Promethazine HCl/ Codeine (Phenergan with Codeine) 5 ml Q4H PRN NG For Cough 12/03/19 21:17 01/02/20 21:16 Sevelamer Carbonate (Renvela) 1,600 mg THREE TIMES A DAY ORAL 12/08/19 13:00 01/07/20 12:59 Sodium Hypochlorite (Dakin's Quarter Strength) 1 applic DAILY TOPIC 12/08/19 09:00 01/07/20 08:59 12/08/19 08:28 Vancomycin HCl (Vanco rx to dose) 1 ea DAILY PRN MISC Per rx protocol 12/05/19 11:45 01/04/20 11:44 Laboratory Tests 12/08/19 03:45: White Blood Count 9.8, Red Blood Count 2.61L, Hemoglobin 7.4L, Hematocrit 22.2L , Mean Corpuscular Volume 85, Mean Corpuscular Hemoglobin 28.3, Mean Corpuscular Hemoglobin Concent 33.3, Red Cell Distribution Width 13.4, Platelet Count 328, Mean Platelet Volume 6.0L, Neutrophils (%) (Auto) , Lymphocytes (%) ( Auto) , Monocytes (%) (Auto) , Eosinophils (%) (Auto) , Basophils (%) (Auto) , Erythrocyte Sedimentation Rate 136H, Sodium Level 137, Potassium Level 4.7, Chloride Level 97L, Carbon Dioxide Level 28, Anion Gap 12, Blood Urea Nitrogen 81H, Creatinine 8.6H, Estimat Glomerular Filtration Rate 7.8, Glucose Level 110H , Calcium Level 8.3L, Phosphorus Level 8.1H, Magnesium Level 2.2, Total Bilirubin 0.4, Aspartate Amino Transf (AST/SGOT) 34, Alanine Aminotransferase ( ALT/SGPT) 28, Alkaline Phosphatase 128H, C-Reactive Protein, Quantitative 7.4H, Total Protein 6.5, Albumin 1.9L, Globulin 4.6, Albumin/Globulin Ratio 0.4L, Random Vancomycin Level 23.5 Height (Feet): 5 Height (Inches): 8.00 Weight (Pounds): 236 General Appearance: no apparent distress Cardiovascular: normal rate Respiratory/Chest: decreased breath sounds Abdomen: soft Objective no change Tej Sidhu MD Dec 08, 2019 11:13
--- NOTE | 2019-12-08 11:35 | Pulmonology Progress Note ---
Assessment/Plan Problems: (1) Acute respiratory failure (2) ESRD (end stage renal disease) (3) Septic shock (4) Chronic systolic heart failure (5) History of hypertension (6) Diabetes mellitus (7) History of left below knee amputation (8) History of gout Assessment/Plan passed swallow study repeat cultures titrate fio2 to sat of 92% check cultures abx as per ID Subjective ROS Limited/Unobtainable: No Interval Events: late note for 12/07 Allergies: Coded Allergies: No Known Allergies (Unverified , 11/24/19) Objective Last 24 Hour Vital Signs Date Time Temp Pulse Resp B/P (MAP) Pulse Ox O2 Delivery O2 Flow Rate FiO2 12/08/19 09:11 74 12 2.0 12/08/19 08:24 100 Nasal Cannula 4.0 36 12/08/19 08:24 76 18 100 Nasal Cannula 4.0 36 12/08/19 08:18 78 123/66 12/08/19 08:17 123/66 12/08/19 08:00 Nasal Cannula 3.0 Nasal Cannula 3.0 12/08/19 08:00 71 12/08/19 08:00 98.3 74 20 123/66 (85) 100 12/08/19 05:36 133/76 12/08/19 04:00 73 12/08/19 04:00 Nasal Cannula 5.0 Nasal Cannula 5.0 12/08/19 04:00 98.0 76 24 128/65 (86) 100 12/08/19 00:41 124/65 12/08/19 00:00 98.0 77 20 124/65 (84) 100 12/08/19 00:00 Nasal Cannula 5.0 Nasal Cannula 5.0 12/08/19 00:00 74 12/07/19 20:50 79 128/67 12/07/19 20:00 97.9 79 18 128/67 (87) 100 12/07/19 20:00 Nasal Cannula 5.0 Nasal Cannula 5.0 12/07/19 20:00 79 12/07/19 19:58 100 Nasal Cannula 5.0 40 12/07/19 17:40 104/59 12/07/19 17:39 104/59 12/07/19 16:00 81 12/07/19 16:00 Nasal Cannula 5.0 Nasal Cannula 5.0 12/07/19 16:00 97.9 84 18 106/59 (75) 100 12/07/19 13:30 128/64 12/07/19 13:28 128/64 12/07/19 12:00 98.0 84 20 128/64 (85) 100 12/07/19 12:00 78 12/07/19 12:00 Nasal Cannula 5.0 Nasal Cannula 5.0 Intake and Output 12/07/19 12/08/19 19:00 07:00 Intake Total 1000 ml 240 ml Output Total 400 ml 100 ml Balance 600 ml 140 ml Intake Oral 1000 ml 240 ml Output Urine Total 400 ml 100 ml General Appearance: WD/WN HEENT: normocephalic, atraumatic Respiratory/Chest: chest wall non-tender, lungs clear Cardiovascular: normal peripheral pulses, normal rate Abdomen: normal bowel sounds, soft, non tender Genitourinary: normal external genitalia Extremities: no cyanosis 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 Microbiology Date/Time Source Procedure Growth Status 12/06/19 12:10 Blood Blood Culture - Preliminary NO GROWTH AFTER 24 HOURS Resulted 12/06/19 12:10 Blood Blood Culture - Preliminary NO GROWTH AFTER 24 HOURS Resulted 12/05/19 11:55 Blood Blood Culture - Preliminary NO GROWTH AFTER 48 HOURS Resulted 12/05/19 11:45 Blood Blood Culture - Preliminary NO GROWTH AFTER 48 HOURS Resulted 12/06/19 07:57 Other(Specify in comment) Catheter Tip Culture - Preliminary NO GROWTH AFTER 48 HOURS Resulted Laboratory Tests 12/08/19 03:45: White Blood Count 9.8, Red Blood Count 2.61L, Hemoglobin 7.4L, Hematocrit 22.2L , Mean Corpuscular Volume 85, Mean Corpuscular Hemoglobin 28.3, Mean Corpuscular Hemoglobin Concent 33.3, Red Cell Distribution Width 13.4, Platelet Count 328, Mean Platelet Volume 6.0L, Neutrophils (%) (Auto) , Lymphocytes (%) ( Auto) , Monocytes (%) (Auto) , Eosinophils (%) (Auto) , Basophils (%) (Auto) , Erythrocyte Sedimentation Rate 136H, Sodium Level 137, Potassium Level 4.7, Chloride Level 97L, Carbon Dioxide Level 28, Anion Gap 12, Blood Urea Nitrogen 81H, Creatinine 8.6H, Estimat Glomerular Filtration Rate 7.8, Glucose Level 110H , Calcium Level 8.3L, Phosphorus Level 8.1H, Magnesium Level 2.2, Total Bilirubin 0.4, Aspartate Amino Transf (AST/SGOT) 34, Alanine Aminotransferase ( ALT/SGPT) 28, Alkaline Phosphatase 128H, C-Reactive Protein, Quantitative 7.4H, Total Protein 6.5, Albumin 1.9L, Globulin 4.6, Albumin/Globulin Ratio 0.4L, Random Vancomycin Level 23.5 Current Medications Medications (Trade) Dose Ordered Sig/Valeriano Route PRN Reason Start Time Stop Time Status Last Admin Dose Admin Acetaminophen (Tylenol) 650 mg Q4H PRN NG Mild Pain/Temp > 100.5 12/03/19 21:15 01/02/20 21:14 12/07/19 20:51 Albuterol/ Ipratropium (Albuterol/ Ipratropium) 3 ml Q4H PRN HHN Shortness of Breath 12/03/19 21:16 12/08/19 21:15 Amlodipine Besylate (Norvasc) 2.5 mg DAILYPRN PRN NG sbp greater than 150 12/03/19 21:15 01/02/20 21:14 Barium Sulfate (Varibar Honey) 250 ml NOW PRN MC RAD 12/07/19 15:45 12/10/19 15:38 Barium Sulfate (Varibar [place]) 240 ml NOW PRN MC RAD 12/07/19 15:45 12/10/19 15:38 Barium Sulfate (Varibar Pudding) 230 ml NOW PRN MC RAD 12/07/19 15:45 12/10/19 15:38 Barium Sulfate (Varibar Thin Liquid powder) 148 gm NOW PRN MC RAD 12/07/19 15:45 12/10/19 15:38 Carvedilol (Coreg) 12.5 mg EVERY 12 HOURS NG 12/03/19 22:00 01/02/20 21:59 12/08/19 08:18 Chlorhexidine Gluconate (Katia-Hex 2%) 1 applic DAILY@2000 TOPIC 12/04/19 20:00 12/25/19 19:59 12/07/19 20:49 Dextrose (Dextrose 50%) 25 ml Q30M PRN IV Hypoglycemia 12/03/19 21:30 12/24/19 13:29 Dextrose (Dextrose 50%) 50 ml Q30M PRN IV Hypoglycemia 12/03/19 21:30 12/24/19 13:29 Folic Acid (Folate) 5 mg DAILY GT 12/04/19 09:00 12/27/19 08:59 12/08/19 08:19 Heparin Sodium (Porcine) (Heparin 5000 units/ml) 5,000 units EVERY 12 HOURS SUBQ 12/03/19 22:00 01/02/20 21:59 12/06/19 09:07 Heparin Sodium/ Sodium Chloride (Heparin 1000 units/500ml Premix) 1,000 unit ONCE PRN INJ RADIOLOGY 12/08/19 09:00 12/08/19 23:59 Hydralazine HCl (Apresoline) 50 mg EVERY 6 HOURS GT 12/04/19 00:00 01/01/20 00:00 12/08/19 05:36 Insulin Aspart (NovoLOG) BEFORE MEALS AND HS SUBQ 12/03/19 21:14 01/02/20 21:13 12/06/19 17:14 Isosorbide Dinitrate (Isordil) 20 mg TID GT 12/04/19 09:00 01/01/20 08:59 12/08/19 08:17 Lansoprazole (Prevacid) 30 mg BID NG 12/04/19 09:00 12/30/19 17:59 12/08/19 08:18 Lidocaine HCl (Xylocaine 1% 30ml) 30 ml ONCE PRN INJ RADIOLOGY 12/08/19 09:00 12/08/19 23:59 Meropenem 500 mg/ Sodium Chloride 55 ml @ 110 mls/hr Q24H IVPB 12/04/19 12:00 12/10/19 11:59 12/07/19 13:29 Morphine Sulfate (Morphine Sulfate) 2 mg Q4H PRN IVP Severe Pain (Pain Scale 7-10) 12/03/19 21:17 12/10/19 21:16 12/08/19 10:52 Nitroglycerin (Ntg) 0.4 mg Q5M PRN SL Prn Chest Pain 12/03/19 21:17 01/02/20 21:16 Ondansetron HCl (Zofran) 4 mg Q6H PRN IVP Nausea & Vomiting 12/03/19 21:17 01/02/20 21:16 Polyethylene Glycol (Miralax) 17 gm DAILYPRN PRN NG Constipation 12/03/19 21:17 01/02/20 21:16 Promethazine HCl/ Codeine (Phenergan with Codeine) 5 ml Q4H PRN NG For Cough 12/03/19 21:17 01/02/20 21:16 Sevelamer Carbonate (Renvela) 1,600 mg THREE TIMES A DAY ORAL 12/08/19 13:00 01/07/20 12:59 Sodium Hypochlorite (Dakin's Quarter Strength) 1 applic DAILY TOPIC 12/08/19 09:00 01/07/20 08:59 12/08/19 08:28 Vancomycin HCl (Vanco rx to dose) 1 ea DAILY PRN MISC Per rx protocol 12/05/19 11:45 01/04/20 11:44 Brandy Milton MD Dec 08, 2019 11:35
--- NOTE | 2019-12-08 11:37 | Pulmonology Progress Note ---
Assessment/Plan Problems: (1) Acute respiratory failure (2) ESRD (end stage renal disease) (3) Septic shock (4) Chronic systolic heart failure (5) History of hypertension (6) Diabetes mellitus (7) History of left below knee amputation (8) History of gout Assessment/Plan get HD catheter repeat cultures titrate fio2 to sat of 92% check cultures abx as per ID Subjective ROS Limited/Unobtainable: No Constitutional: Reports: no symptoms HEENT: Repors: no symptoms Respiratory: Reports: no symptoms Allergies: Coded Allergies: No Known Allergies (Unverified , 11/24/19) Objective Last 24 Hour Vital Signs Date Time Temp Pulse Resp B/P (MAP) Pulse Ox O2 Delivery O2 Flow Rate FiO2 12/08/19 09:11 74 12 2.0 12/08/19 08:24 100 Nasal Cannula 4.0 36 12/08/19 08:24 76 18 100 Nasal Cannula 4.0 36 12/08/19 08:18 78 123/66 12/08/19 08:17 123/66 12/08/19 08:00 Nasal Cannula 3.0 Nasal Cannula 3.0 12/08/19 08:00 71 12/08/19 08:00 98.3 74 20 123/66 (85) 100 12/08/19 05:36 133/76 12/08/19 04:00 73 12/08/19 04:00 Nasal Cannula 5.0 Nasal Cannula 5.0 12/08/19 04:00 98.0 76 24 128/65 (86) 100 12/08/19 00:41 124/65 12/08/19 00:00 98.0 77 20 124/65 (84) 100 12/08/19 00:00 Nasal Cannula 5.0 Nasal Cannula 5.0 12/08/19 00:00 74 12/07/19 20:50 79 128/67 12/07/19 20:00 97.9 79 18 128/67 (87) 100 12/07/19 20:00 Nasal Cannula 5.0 Nasal Cannula 5.0 12/07/19 20:00 79 12/07/19 19:58 100 Nasal Cannula 5.0 40 12/07/19 17:40 104/59 12/07/19 17:39 104/59 12/07/19 16:00 81 12/07/19 16:00 Nasal Cannula 5.0 Nasal Cannula 5.0 12/07/19 16:00 97.9 84 18 106/59 (75) 100 12/07/19 13:30 128/64 12/07/19 13:28 128/64 12/07/19 12:00 98.0 84 20 128/64 (85) 100 12/07/19 12:00 78 12/07/19 12:00 Nasal Cannula 5.0 Nasal Cannula 5.0 Intake and Output 12/07/19 12/08/19 19:00 07:00 Intake Total 1000 ml 240 ml Output Total 400 ml 100 ml Balance 600 ml 140 ml Intake Oral 1000 ml 240 ml Output Urine Total 400 ml 100 ml General Appearance: WD/WN HEENT: normocephalic, atraumatic Respiratory/Chest: chest wall non-tender, lungs clear Cardiovascular: normal peripheral pulses, regular rhythm Abdomen: normal bowel sounds, no organomegaly Genitourinary: normal external genitalia Skin: no rash Microbiology Date/Time Source Procedure Growth Status 12/06/19 12:10 Blood Blood Culture - Preliminary NO GROWTH AFTER 24 HOURS Resulted 12/06/19 12:10 Blood Blood Culture - Preliminary NO GROWTH AFTER 24 HOURS Resulted 12/05/19 11:55 Blood Blood Culture - Preliminary NO GROWTH AFTER 48 HOURS Resulted 12/05/19 11:45 Blood Blood Culture - Preliminary NO GROWTH AFTER 48 HOURS Resulted 12/06/19 07:57 Other(Specify in comment) Catheter Tip Culture - Preliminary NO GROWTH AFTER 48 HOURS Resulted Laboratory Tests 12/08/19 03:45: White Blood Count 9.8, Red Blood Count 2.61L, Hemoglobin 7.4L, Hematocrit 22.2L , Mean Corpuscular Volume 85, Mean Corpuscular Hemoglobin 28.3, Mean Corpuscular Hemoglobin Concent 33.3, Red Cell Distribution Width 13.4, Platelet Count 328, Mean Platelet Volume 6.0L, Neutrophils (%) (Auto) , Lymphocytes (%) ( Auto) , Monocytes (%) (Auto) , Eosinophils (%) (Auto) , Basophils (%) (Auto) , Erythrocyte Sedimentation Rate 136H, Sodium Level 137, Potassium Level 4.7, Chloride Level 97L, Carbon Dioxide Level 28, Anion Gap 12, Blood Urea Nitrogen 81H, Creatinine 8.6H, Estimat Glomerular Filtration Rate 7.8, Glucose Level 110H , Calcium Level 8.3L, Phosphorus Level 8.1H, Magnesium Level 2.2, Total Bilirubin 0.4, Aspartate Amino Transf (AST/SGOT) 34, Alanine Aminotransferase ( ALT/SGPT) 28, Alkaline Phosphatase 128H, C-Reactive Protein, Quantitative 7.4H, Total Protein 6.5, Albumin 1.9L, Globulin 4.6, Albumin/Globulin Ratio 0.4L, Random Vancomycin Level 23.5 Current Medications Medications (Trade) Dose Ordered Sig/Valeriano Route PRN Reason Start Time Stop Time Status Last Admin Dose Admin Acetaminophen (Tylenol) 650 mg Q4H PRN NG Mild Pain/Temp > 100.5 12/03/19 21:15 01/02/20 21:14 12/07/19 20:51 Albuterol/ Ipratropium (Albuterol/ Ipratropium) 3 ml Q4H PRN HHN Shortness of Breath 12/03/19 21:16 12/08/19 21:15 Amlodipine Besylate (Norvasc) 2.5 mg DAILYPRN PRN NG sbp greater than 150 12/03/19 21:15 01/02/20 21:14 Barium Sulfate (Varibar Honey) 250 ml NOW PRN MC RAD 12/07/19 15:45 12/10/19 15:38 Barium Sulfate (Varibar [place]) 240 ml NOW PRN MC RAD 12/07/19 15:45 12/10/19 15:38 Barium Sulfate (Varibar Pudding) 230 ml NOW PRN MC RAD 12/07/19 15:45 12/10/19 15:38 Barium Sulfate (Varibar Thin Liquid powder) 148 gm NOW PRN MC RAD 12/07/19 15:45 12/10/19 15:38 Carvedilol (Coreg) 12.5 mg EVERY 12 HOURS NG 12/03/19 22:00 01/02/20 21:59 12/08/19 08:18 Chlorhexidine Gluconate (Katia-Hex 2%) 1 applic DAILY@2000 TOPIC 12/04/19 20:00 12/25/19 19:59 12/07/19 20:49 Dextrose (Dextrose 50%) 25 ml Q30M PRN IV Hypoglycemia 12/03/19 21:30 12/24/19 13:29 Dextrose (Dextrose 50%) 50 ml Q30M PRN IV Hypoglycemia 12/03/19 21:30 12/24/19 13:29 Folic Acid (Folate) 5 mg DAILY GT 12/04/19 09:00 12/27/19 08:59 12/08/19 08:19 Heparin Sodium (Porcine) (Heparin 5000 units/ml) 5,000 units EVERY 12 HOURS SUBQ 12/03/19 22:00 01/02/20 21:59 12/06/19 09:07 Heparin Sodium/ Sodium Chloride (Heparin 1000 units/500ml Premix) 1,000 unit ONCE PRN INJ RADIOLOGY 12/08/19 09:00 12/08/19 23:59 Hydralazine HCl (Apresoline) 50 mg EVERY 6 HOURS GT 12/04/19 00:00 01/01/20 00:00 12/08/19 05:36 Insulin Aspart (NovoLOG) BEFORE MEALS AND HS SUBQ 12/03/19 21:14 01/02/20 21:13 12/06/19 17:14 Isosorbide Dinitrate (Isordil) 20 mg TID GT 12/04/19 09:00 01/01/20 08:59 12/08/19 08:17 Lansoprazole (Prevacid) 30 mg BID NG 12/04/19 09:00 12/30/19 17:59 12/08/19 08:18 Lidocaine HCl (Xylocaine 1% 30ml) 30 ml ONCE PRN INJ RADIOLOGY 12/08/19 09:00 12/08/19 23:59 Meropenem 500 mg/ Sodium Chloride 55 ml @ 110 mls/hr Q24H IVPB 12/04/19 12:00 12/10/19 11:59 12/07/19 13:29 Morphine Sulfate (Morphine Sulfate) 2 mg Q4H PRN IVP Severe Pain (Pain Scale 7-10) 12/03/19 21:17 12/10/19 21:16 12/08/19 10:52 Nitroglycerin (Ntg) 0.4 mg Q5M PRN SL Prn Chest Pain 12/03/19 21:17 01/02/20 21:16 Ondansetron HCl (Zofran) 4 mg Q6H PRN IVP Nausea & Vomiting 12/03/19 21:17 01/02/20 21:16 Polyethylene Glycol (Miralax) 17 gm DAILYPRN PRN NG Constipation 12/03/19 21:17 01/02/20 21:16 Promethazine HCl/ Codeine (Phenergan with Codeine) 5 ml Q4H PRN NG For Cough 12/03/19 21:17 01/02/20 21:16 Sevelamer Carbonate (Renvela) 1,600 mg THREE TIMES A DAY ORAL 12/08/19 13:00 01/07/20 12:59 Sodium Hypochlorite (Dakin's Quarter Strength) 1 applic DAILY TOPIC 12/08/19 09:00 01/07/20 08:59 12/08/19 08:28 Vancomycin HCl (Vanco rx to dose) 1 ea DAILY PRN MISC Per rx protocol 12/05/19 11:45 01/04/20 11:44 Brandy Milton MD Dec 08, 2019 11:37
--- NOTE | 2019-12-08 11:40 | Surgery Progress Note ---
Surgery Progress Note Subjective Procedure Performed Right femoral temporary hemodialysis catheter removal Additional Comments Patient seen and examined bedside. Much more alert awake responsive and cooperative with exam. Able to move himself now from side to side has been doing so. Tolerating diet. Had right temporary hemodialysis catheter tunneled placed Objective Last 24 Hour Vital Signs Date Time Temp Pulse Resp B/P (MAP) Pulse Ox O2 Delivery O2 Flow Rate FiO2 12/08/19 09:11 74 12 2.0 12/08/19 08:24 100 Nasal Cannula 4.0 36 12/08/19 08:24 76 18 100 Nasal Cannula 4.0 36 12/08/19 08:18 78 123/66 12/08/19 08:17 123/66 12/08/19 08:00 Nasal Cannula 3.0 Nasal Cannula 3.0 12/08/19 08:00 71 12/08/19 08:00 98.3 74 20 123/66 (85) 100 12/08/19 05:36 133/76 12/08/19 04:00 73 12/08/19 04:00 Nasal Cannula 5.0 Nasal Cannula 5.0 12/08/19 04:00 98.0 76 24 128/65 (86) 100 12/08/19 00:41 124/65 12/08/19 00:00 98.0 77 20 124/65 (84) 100 12/08/19 00:00 Nasal Cannula 5.0 Nasal Cannula 5.0 12/08/19 00:00 74 12/07/19 20:50 79 128/67 12/07/19 20:00 97.9 79 18 128/67 (87) 100 12/07/19 20:00 Nasal Cannula 5.0 Nasal Cannula 5.0 12/07/19 20:00 79 12/07/19 19:58 100 Nasal Cannula 5.0 40 12/07/19 17:40 104/59 12/07/19 17:39 104/59 12/07/19 16:00 81 12/07/19 16:00 Nasal Cannula 5.0 Nasal Cannula 5.0 12/07/19 16:00 97.9 84 18 106/59 (75) 100 12/07/19 13:30 128/64 12/07/19 13:28 128/64 12/07/19 12:00 98.0 84 20 128/64 (85) 100 12/07/19 12:00 78 12/07/19 12:00 Nasal Cannula 5.0 Nasal Cannula 5.0 I&O Intake and Output 12/07/19 12/08/19 19:00 07:00 Intake Total 1000 ml 240 ml Output Total 400 ml 100 ml Balance 600 ml 140 ml Intake Oral 1000 ml 240 ml Output Urine Total 400 ml 100 ml Dressing: saturated Wound: clean Cardiovascular: RSR Respiratory: clear Abdomen: soft, flat, non-tender, present bowel sounds Extremities: no edema, no tenderness, no cyanosis, other Laboratory Tests Test 12/08/19 03:45 White Blood Count 9.8 K/UL (4.8-10.8) Red Blood Count 2.61 M/UL (4.70-6.10) L Hemoglobin 7.4 G/DL (14.2-18.0) L Hematocrit 22.2 % (42.0-52.0) L Mean Corpuscular Volume 85 FL (80-99) Mean Corpuscular Hemoglobin 28.3 PG (27.0-31.0) Mean Corpuscular Hemoglobin Concent 33.3 G/DL (32.0-36.0) Red Cell Distribution Width 13.4 % (11.6-14.8) Platelet Count 328 K/UL (150-450) Mean Platelet Volume 6.0 FL (6.5-10.1) L Neutrophils (%) (Auto) % (45.0-75.0) Lymphocytes (%) (Auto) % (20.0-45.0) Monocytes (%) (Auto) % (1.0-10.0) Eosinophils (%) (Auto) % (0.0-3.0) Basophils (%) (Auto) % (0.0-2.0) Erythrocyte Sedimentation Rate 136 MM/HR (0-20) H Sodium Level 137 MMOL/L (136-145) Potassium Level 4.7 MMOL/L (3.5-5.1) Chloride Level 97 MMOL/L (98-107) L Carbon Dioxide Level 28 MMOL/L (21-32) Anion Gap 12 mmol/L (5-15) Blood Urea Nitrogen 81 mg/dL (7-18) H Creatinine 8.6 MG/DL (0.55-1.30) H Estimat Glomerular Filtration Rate 7.8 mL/min (>60) Glucose Level 110 MG/DL (74-106) H Calcium Level 8.3 MG/DL (8.5-10.1) L Phosphorus Level 8.1 MG/DL (2.5-4.9) H Magnesium Level 2.2 MG/DL (1.8-2.4) Total Bilirubin 0.4 MG/DL (0.2-1.0) Aspartate Amino Transf (AST/SGOT) 34 U/L (15-37) Alanine Aminotransferase (ALT/SGPT) 28 U/L (12-78) Alkaline Phosphatase 128 U/L (46-116) H C-Reactive Protein, Quantitative 7.4 mg/dL (0.00-0.90) H Total Protein 6.5 G/DL (6.4-8.2) Albumin 1.9 G/DL (3.4-5.0) L Globulin 4.6 g/dL Albumin/Globulin Ratio 0.4 (1.0-2.7) L Random Vancomycin Level 23.5 ug/mL Plan Problems: (1) Septic shock Assessment & Plan: Patient in septic shock prior central line and pressors intubated on vent support in the intensive care unit tachycardic. Renal insufficiency requiring hemodialysis. Temporary hemodialysis catheter indicated and recommended Please see procedure note Dialysis as per nephrology IV antibiotics post per infectious disease Dressing changes as per protocol We will monitor site for hematoma or infection No further acute surgical intervention recommended at this time will follow with recommendations thank you for let me participate patient's care extubated improved downgraded discussed care plan with family consent obtained plan to change to tunneled cath thursday (2) Acute respiratory failure Assessment & Plan: DAILY ESTIMATED NEEDS: Needs based on Critical care, sepsis 75kg adj 22-28 kcals/kg 9676-9516 total kcals 1.2-2 g protein/kg 90-150 g total protein 25-30 mL/kg 7520-6057 total fluid mLs NUTRITION DIAGNOSIS: Swallowing difficulty r/t resp status as evidenced by septic shock now s/p intubation, w/ NGT, NPO at this time. ENTERAL NUTRITION RECOMMENDATIONS: Nepro @40ml/hr x24 hrs + Prosource BID to provide 960ml, 78g + 22 g pro, 698ml free H2O - As medically appropriate, rec non oral feeds via NGT - Start Nepro @20ml/hr for 6 hrs. Advance as tolerated 10ml/hr q4-6 hrs to goal. - Add Prosource BID to better meet est pro needs - Flush per MD. HOB over 30 degrees -------- ADDITIONAL RECOMMENDATIONS: 1) Tf recs as above, feed as medically able 2) Ad PROSOURCE VIA NGT BID to better meet est pro needs 3) Per SNF: 69inches tall, last wt of 210 lbs (2/3) -> rec weekly calibrated bed scale wts 4) LOGISTICS SUPPLY OFFICER eval upon extubation (3) Sepsis Assessment & Plan: Tunneled right permacath placed (4) History of left below knee amputation Assessment & Plan: Wound stable dressings intact elevate with pillow This patient is improving he spent some time with him at the bedside. We turned him to the right lateral decubitus and evaluated the wound. Fortunately what was considered to be a stage IV wound is actually not and a significant amount of the necrotic tissues actually buildup of hair and dried skin protectant. A fair amount of time was spent doing non-excisional debridement with gauze and moist saline until the area was fully cleaned. Identified was a stage II skin breakdown mainly epidermis that looked like necrotic eschar but fortunately was just epidermis and underlying healthy viable dermis with back bleeding. Wound was cleansed and total edges were identified and intact minimal tenderness on palpation good blanching tissue noted surrounding it. Thera honey placed followed by gauze dressing and foam dressing. Discussed care plan with patient. He is very compliant with turning and states he will remain off his mind will stay off his sacrum as much as possible will follow with recommendations. For now Thera honey impregnated gauze and foam dressing. Turn every 2 hours. Nutritional optimization. Ranjit Ralph Dec 08, 2019 11:40
--- NOTE | 2019-12-08 11:46 | NUR ---
ST NOTES: SWALLOW STATUS: PATIENT TOLERATING SOFT CHEW AND THIN LIQUIDS W/O OVERT ASPIRATION. GOALS MET FOR INTAKE 75 TO 100%. GOALS MET FOR STAFF AND PATIENT TRAINED/EDUCATED IN ASPIRATION PRECAUTIONS AND SWALLOW STRATEGIES POSTED ABOVE BED. REVIEWED MOD BARIUM SWALLOW STUDY IMAGES AND COMPLETED REPORT (SEE REPORT FOR DETAILS AND UPDATES). HOLD ON SWALLOW EXERCISES NOW SINCE PATIENT TIRED AND JUST RECEIVED MORPHINE. PLAN: CONTINUE WITH CURRENT DIET/LIQUIDS WITH POSTED PRECAUTIONS. SKILLED DYSPHAGIA MANAGEMENT AND TX IP AND AT SNF WHEN D/C
--- NOTE | 2019-12-08 12:00 | NUR ---
NURSE NOTES: Pt currently receiving dialysis through new access port. Tolerating well. No distress noted.
--- NOTE | 2019-12-08 12:12 | Diagnostic Imaging Report ---
Indications: Needs long-term dialysis access Technique: Patient given IV Ancef. Total sterile technique, including sterile probe cover and sterile gel, sterile gloves, hand hygiene, hat, mask,, sterile gown, large sterile drape, and preparation with 2% chlorhexidine utilized. Local anesthesia with 1% lidocaine. Under real-time ultrasound guidance, puncture right internal jugular vein using 21-gauge micropuncture needle, passage 0.018 guidewire, exchange for 4 Hungarian micropuncture introducer. The guidewire was used to measure the appropriate catheter length, and was removed. The sheath was left in place. The subcutaneous tract was then anesthetized with 1% lidocaine. A chest dermatotomy was made . The tunneling device was used to pull a 14.5 Hungarian 23 cm BioFlo Duramax catheter through the subcutaneous tunnel to the neck dermatotomy. A guidewire was passed through the neck introducer into the inferior vena cava, and serial dilators were passed over it, followed by the introduction of a 14.5 Hungarian AirGuard peel-away sheath. The catheter was then introduced into the sheath, the peel-away sheath was removed. Digital radiograph documents satisfactory catheter tip position in the high right atrium, no kinking at the insertion site. Both catheter ports aspirated and flushed. Catheter was fixed to the skin. Patient tolerated procedure well without immediate complication. Total fluoroscopy time 66.8 seconds. Total dose area product 14.77 mgy Total number of images-one Comparison: None. Findings: Completion radiograph documents satisfactory position and course of the catheter, catheter tip at the high right atrium. Impression: Successful placement of right transjugular tunneled dialysis catheter, as described above
--- NOTE | 2019-12-08 12:43 | NUR ---
NURSE NOTES:WOUND CARE FOLLOW-UP NOTES:Sacral pressure injury with thick,moist Biofilm that is bennett in colour Borders are darker than skin tone without induration or fluctuance. (L)10.5cm x (W)8.9cm. Dr Ralph in in and evaluated wound . Wound mechanically debrided by MD by flushing wound with Saline and removal of wound Bioburden with gentle friction. Base of wound is partial thickness,and is moist with beefy granulation. Edges flat and adherent to base of wound. Small amt sanguineous exudate noted. No new skin concerns noted. Therahoney applied to base of wound. Moisture Barrier paste applied along borders and periwound. Covered with Optifoam drsg. Pt demonstrated good mobility in bed and encouraged to frequently reposition at least hourly. Tx.Plan: Cleanse sacral wound with Saline. Apply Therahoney. Apply Moisture Barrier Paste periwound. Cover with Optifoam Drsg Daily and prn. Apply Cavilon Skin Barrier to R heel. Cover with Optifoam drsg. Change every 7 days and prn. APM/DEEP Mattress overlay. Reposition at least every 2hours or as tolerated. Off-load R heel with pillow.
--- NOTE | 2019-12-08 14:55 | NUR ---
NURSE NOTES: Pt remains on dialysis. Tolerating well. Will give scheduled 12pm antibiotic after completion of dialysis.
--- NOTE | 2019-12-08 15:01 | NUR ---
RD ASSESSMENT & RECOMMENDATIONS SEE CARE ACTIVITY FOR COMPLETE ASSESSMENT DAILY ESTIMATED NEEDS: Needs based on Pulmonary, HD needs, wound 75kg adj 25-30 kcals/kg 2307-7857 total kcals 1.25-1.8 g protein/kg 94-135 g total protein 20-22 mL/kg 3592-2070 total fluid mLs NUTRITION DIAGNOSIS: * Swallowing difficulty r/t resp status as evidenced by septic, now extubated, NGT removed, s/p EPIC ANALYST eval, on soft easy chew texture diet. * Increased kcal/prot needs R/T renal failure, wound healing as evidenced by pt on HD, s/p Perma cath placement, admitted w/ sacral pressure injury, refer to WC eval. CURRENT DIET:RENAL, CCHO MED/ soft easy chew PO DIET RECOMMENDATIONS: RENAL, CCHO MED/ texture per EPIC ANALYST ADDITIONAL RECOMMENDATIONS: 1) Per SNF: 69inches tall, last wt of 210 lbs (2/) -> rec weekly calibrated bed scale wts 2) Monitor for continuity of HD: first HD on 11/27 (NOW S/P PERMACATH) 3) Monitor Po intake closely, rec Nepro x 1 at this time until PO intake consistently adequate (425kcal/19g prot per bottle) 4) Wound healing: Add Nephrovite x 1, Juan 1pkt BID 5) Monitor lytes
[2019-12-08] MEDS: Meropenem 500 MG in NS 55 ML IVPB SCH (15:27)
--- NOTE | 2019-12-08 15:36 | Infectious Diseases Prog Note ---
Assessment/Plan Assessment/Plan Assessment: Septic Shock- SP Pneumonia -12/01 CXR: probably unchanged bilateral diffuse interstitial and airspace disease. -11/30 sp cx:Interim marked worsening of bilateral pulmonary parenchymal disease, over one day -11/29 sp cx ESBL E.coli (S zosyn, Imipenem, bactrim) -11/24 u/a neg; ucx neg Bcx NTD influenza sc neg CXR: Bilateral dense consolidation, likely pneumonia. Pulmonary edema also possible. Correlate with clinical findings sp cx ordered,not done legionella ag urine neg S. hominis bacteremia- RIJ infection vs contamination - SP Perm Cath insertion 12/08 - HD Cath removed on 12/06 - RIJ removed on 12/02 -11/27 Bcx 1/4 S. hominis; 11/29 Bcx 1/2 S. hominis (RIJ), NTD x2 (peripheral) Low grade fever , Sp Leukocytosis, improving ARDS Acute respiratory failure s/p intubation 11/24, sp extubation 11/29, now on bipap GANGA on CKD; now on HD 11/27 Elevated LFTs;improving Troponinemia Dm2 Gout s/p L BKA allergic rhinitis CAD s/p stent prosthetic AVR hx of esophagitis PVD chronic sCHF HLD HTN SNF resident Plan: - cont IV Vanco # 4/10 -Continue empiric Meropenem # 8/10 for ESBL E.coli PNA -12/01 SP IV Vancomycin #8, Tamiflu #7 -11/30 SP LEvaquin #7, Cefepime #7 -Monitor CBC/CMP, temperatures -aspiration precautions - Bcx x2 Thank you for this consultation. Will continue to follow along with you. Subjective Allergies: Coded Allergies: No Known Allergies (Unverified , 11/24/19) Subjective comfortable leukocytosis resolved SP Perm Cath insertion Objective Vital Signs Last 24 Hour Vital Signs Date Time Temp Pulse Resp B/P (MAP) Pulse Ox O2 Delivery O2 Flow Rate FiO2 12/08/19 12:17 109/59 12/08/19 12:00 103/49 12/08/19 12:00 71 12/08/19 12:00 97.8 72 20 109/51 (70) 100 12/08/19 12:00 Nasal Cannula 3.0 Nasal Cannula 3.0 12/08/19 09:11 74 12 2.0 12/08/19 08:24 100 Nasal Cannula 4.0 36 12/08/19 08:24 76 18 100 Nasal Cannula 4.0 36 12/08/19 08:18 78 123/66 12/08/19 08:17 123/66 12/08/19 08:00 Nasal Cannula 3.0 Nasal Cannula 3.0 12/08/19 08:00 71 12/08/19 08:00 98.3 74 20 123/66 (85) 100 12/08/19 05:36 133/76 12/08/19 04:00 73 12/08/19 04:00 Nasal Cannula 5.0 Nasal Cannula 5.0 12/08/19 04:00 98.0 76 24 128/65 (86) 100 12/08/19 00:41 124/65 12/08/19 00:00 98.0 77 20 124/65 (84) 100 12/08/19 00:00 Nasal Cannula 5.0 Nasal Cannula 5.0 12/08/19 00:00 74 12/07/19 20:50 79 128/67 12/07/19 20:00 97.9 79 18 128/67 (87) 100 12/07/19 20:00 Nasal Cannula 5.0 Nasal Cannula 5.0 12/07/19 20:00 79 12/07/19 19:58 100 Nasal Cannula 5.0 40 12/07/19 17:40 104/59 12/07/19 17:39 104/59 12/07/19 16:00 81 12/07/19 16:00 Nasal Cannula 5.0 Nasal Cannula 5.0 12/07/19 16:00 97.9 84 18 106/59 (75) 100 Height (Feet): 5 Height (Inches): 8.00 Weight (Pounds): 236 HEENT: mucous membranes moist Respiratory/Chest: lungs clear Cardiovascular: normal rate Abdomen: soft, non tender Microbiology Date/Time Source Procedure Growth Status 12/06/19 12:10 Blood Blood Culture - Preliminary NO GROWTH AFTER 24 HOURS Resulted 12/06/19 12:10 Blood Blood Culture - Preliminary NO GROWTH AFTER 24 HOURS Resulted 12/06/19 07:57 Other(Specify in comment) Catheter Tip Culture - Preliminary NO GROWTH AFTER 48 HOURS Resulted Laboratory Tests Test 12/08/19 03:45 White Blood Count 9.8 K/UL (4.8-10.8) Red Blood Count 2.61 M/UL (4.70-6.10) L Hemoglobin 7.4 G/DL (14.2-18.0) L Hematocrit 22.2 % (42.0-52.0) L Mean Corpuscular Volume 85 FL (80-99) Mean Corpuscular Hemoglobin 28.3 PG (27.0-31.0) Mean Corpuscular Hemoglobin Concent 33.3 G/DL (32.0-36.0) Red Cell Distribution Width 13.4 % (11.6-14.8) Platelet Count 328 K/UL (150-450) Mean Platelet Volume 6.0 FL (6.5-10.1) L Neutrophils (%) (Auto) % (45.0-75.0) Lymphocytes (%) (Auto) % (20.0-45.0) Monocytes (%) (Auto) % (1.0-10.0) Eosinophils (%) (Auto) % (0.0-3.0) Basophils (%) (Auto) % (0.0-2.0) Erythrocyte Sedimentation Rate 136 MM/HR (0-20) H Sodium Level 137 MMOL/L (136-145) Potassium Level 4.7 MMOL/L (3.5-5.1) Chloride Level 97 MMOL/L (98-107) L Carbon Dioxide Level 28 MMOL/L (21-32) Anion Gap 12 mmol/L (5-15) Blood Urea Nitrogen 81 mg/dL (7-18) H Creatinine 8.6 MG/DL (0.55-1.30) H Estimat Glomerular Filtration Rate 7.8 mL/min (>60) Glucose Level 110 MG/DL (74-106) H Calcium Level 8.3 MG/DL (8.5-10.1) L Phosphorus Level 8.1 MG/DL (2.5-4.9) H Magnesium Level 2.2 MG/DL (1.8-2.4) Total Bilirubin 0.4 MG/DL (0.2-1.0) Aspartate Amino Transf (AST/SGOT) 34 U/L (15-37) Alanine Aminotransferase (ALT/SGPT) 28 U/L (12-78) Alkaline Phosphatase 128 U/L (46-116) H C-Reactive Protein, Quantitative 7.4 mg/dL (0.00-0.90) H Total Protein 6.5 G/DL (6.4-8.2) Albumin 1.9 G/DL (3.4-5.0) L Globulin 4.6 g/dL Albumin/Globulin Ratio 0.4 (1.0-2.7) L Random Vancomycin Level 23.5 ug/mL Current Medications Medications (Trade) Dose Ordered Sig/Valeriano Route PRN Reason Start Time Stop Time Status Last Admin Dose Admin Acetaminophen (Tylenol) 650 mg Q4H PRN NG Mild Pain/Temp > 100.5 12/03/19 21:15 01/02/20 21:14 12/07/19 20:51 Albuterol/ Ipratropium (Albuterol/ Ipratropium) 3 ml Q4H PRN HHN Shortness of Breath 12/03/19 21:16 12/08/19 21:15 Amlodipine Besylate (Norvasc) 2.5 mg DAILYPRN PRN NG sbp greater than 150 12/03/19 21:15 01/02/20 21:14 Barium Sulfate (Varibar Honey) 250 ml NOW PRN MC RAD 12/07/19 15:45 12/10/19 15:38 Barium Sulfate (Varibar Bowdens) 240 ml NOW PRN MC RAD 12/07/19 15:45 12/10/19 15:38 Barium Sulfate (Varibar Pudding) 230 ml NOW PRN MC RAD 12/07/19 15:45 12/10/19 15:38 Barium Sulfate (Varibar Thin Liquid powder) 148 gm NOW PRN MC RAD 12/07/19 15:45 12/10/19 15:38 Carvedilol (Coreg) 12.5 mg EVERY 12 HOURS NG 12/03/19 22:00 01/02/20 21:59 12/08/19 08:18 Chlorhexidine Gluconate (Katia-Hex 2%) 1 applic DAILY@2000 TOPIC 12/04/19 20:00 12/25/19 19:59 12/07/19 20:49 Dextrose (Dextrose 50%) 25 ml Q30M PRN IV Hypoglycemia 12/03/19 21:30 12/24/19 13:29 Dextrose (Dextrose 50%) 50 ml Q30M PRN IV Hypoglycemia 12/03/19 21:30 12/24/19 13:29 Folic Acid (Folate) 5 mg DAILY GT 12/04/19 09:00 12/27/19 08:59 12/08/19 08:19 Heparin Sodium (Porcine) (Heparin 5000 units/ml) 5,000 units EVERY 12 HOURS SUBQ 12/03/19 22:00 01/02/20 21:59 12/06/19 09:07 Heparin Sodium/ Sodium Chloride (Heparin 1000 units/500ml Premix) 1,000 unit ONCE PRN INJ RADIOLOGY 12/08/19 09:00 12/08/19 23:59 Hydralazine HCl (Apresoline) 50 mg EVERY 6 HOURS GT 12/04/19 00:00 01/01/20 00:00 12/08/19 05:36 Insulin Aspart (NovoLOG) BEFORE MEALS AND HS SUBQ 12/03/19 21:14 01/02/20 21:13 12/06/19 17:14 Isosorbide Dinitrate (Isordil) 20 mg TID GT 12/04/19 09:00 01/01/20 08:59 12/08/19 12:17 Lansoprazole (Prevacid) 30 mg BID NG 12/04/19 09:00 12/30/19 17:59 12/08/19 08:18 Lidocaine HCl (Xylocaine 1% 30ml) 30 ml ONCE PRN INJ RADIOLOGY 12/08/19 09:00 12/08/19 23:59 Meropenem 500 mg/ Sodium Chloride 55 ml @ 110 mls/hr Q24H IVPB 12/04/19 12:00 12/10/19 11:59 12/08/19 15:27 Morphine Sulfate (Morphine Sulfate) 2 mg Q4H PRN IVP Severe Pain (Pain Scale 7-10) 12/03/19 21:17 12/10/19 21:16 12/08/19 10:52 Nitroglycerin (Ntg) 0.4 mg Q5M PRN SL Prn Chest Pain 12/03/19 21:17 01/02/20 21:16 Ondansetron HCl (Zofran) 4 mg Q6H PRN IVP Nausea & Vomiting 12/03/19 21:17 01/02/20 21:16 Polyethylene Glycol (Miralax) 17 gm DAILYPRN PRN NG Constipation 12/03/19 21:17 01/02/20 21:16 Promethazine HCl/ Codeine (Phenergan with Codeine) 5 ml Q4H PRN NG For Cough 12/03/19 21:17 01/02/20 21:16 Sevelamer Carbonate (Renvela) 1,600 mg THREE TIMES A DAY ORAL 12/08/19 13:00 01/07/20 12:59 12/08/19 12:18 Sodium Hypochlorite (Dakin's Quarter Strength) 1 applic DAILY TOPIC 12/08/19 09:00 01/07/20 08:59 12/08/19 08:28 Vancomycin HCl (Vanco rx to dose) 1 ea DAILY PRN MISC Per rx protocol 12/05/19 11:45 01/04/20 11:44 Gabe Bush MD Dec 08, 2019 15:36
--- NOTE | 2019-12-08 16:00 | NUR ---
NURSE NOTES: HD- 2 L out.
--- NOTE | 2019-12-08 16:36 | NUR ---
INSURANCE REVIEW FAXED TO [facility] DEPT [phone] AUTH# [id number] NCM: JARRED GONSALVES FAX ALL CLINICALS TO: [phone]
--- NOTE | 2019-12-08 18:23 | Internal Med Progress Note ---
Subjective Date of Service: Dec 08, 2019 Physician Name AnastaciaSidney Attending Physician Cezar Ceja MD Current Medications Medications (Trade) Dose Ordered Sig/Valeriano Route PRN Reason Start Time Stop Time Status Last Admin Dose Admin Acetaminophen (Tylenol) 650 mg Q4H PRN NG Mild Pain/Temp > 100.5 12/03/19 21:15 01/02/20 21:14 12/07/19 20:51 Albuterol/ Ipratropium (Albuterol/ Ipratropium) 3 ml Q4H PRN HHN Shortness of Breath 12/03/19 21:16 12/08/19 21:15 Amlodipine Besylate (Norvasc) 2.5 mg DAILYPRN PRN NG sbp greater than 150 12/03/19 21:15 01/02/20 21:14 Barium Sulfate (Varibar Honey) 250 ml NOW PRN MC RAD 12/07/19 15:45 12/10/19 15:38 Barium Sulfate (Varibar [place]) 240 ml NOW PRN MC RAD 12/07/19 15:45 12/10/19 15:38 Barium Sulfate (Varibar Pudding) 230 ml NOW PRN MC RAD 12/07/19 15:45 12/10/19 15:38 Barium Sulfate (Varibar Thin Liquid powder) 148 gm NOW PRN MC RAD 12/07/19 15:45 12/10/19 15:38 Carvedilol (Coreg) 12.5 mg EVERY 12 HOURS NG 12/03/19 22:00 01/02/20 21:59 12/08/19 08:18 Chlorhexidine Gluconate (Katia-Hex 2%) 1 applic DAILY@1999 TOPIC 12/04/19 20:00 12/25/19 19:59 12/07/19 20:49 Dextrose (Dextrose 50%) 25 ml Q30M PRN IV Hypoglycemia 12/03/19 21:30 12/24/19 13:29 Dextrose (Dextrose 50%) 50 ml Q30M PRN IV Hypoglycemia 12/03/19 21:30 12/24/19 13:29 Folic Acid (Folate) 5 mg DAILY GT 12/04/19 09:00 12/27/19 08:59 12/08/19 08:19 Heparin Sodium (Porcine) (Heparin 5000 units/ml) 5,000 units EVERY 12 HOURS SUBQ 12/03/19 22:00 01/02/20 21:59 12/06/19 09:07 Heparin Sodium/ Sodium Chloride (Heparin 1000 units/500ml Premix) 1,000 unit ONCE PRN INJ RADIOLOGY 12/08/19 09:00 12/08/19 23:59 Hydralazine HCl (Apresoline) 50 mg EVERY 6 HOURS GT 12/04/19 00:00 01/01/20 00:00 12/08/19 05:36 Insulin Aspart (NovoLOG) BEFORE MEALS AND HS SUBQ 12/03/19 21:14 01/02/20 21:13 12/06/19 17:14 Isosorbide Dinitrate (Isordil) 20 mg TID GT 12/04/19 09:00 01/01/20 08:59 12/08/19 12:17 Lansoprazole (Prevacid) 30 mg BID NG 12/04/19 09:00 12/30/19 17:59 12/08/19 17:18 Lidocaine HCl (Xylocaine 1% 30ml) 30 ml ONCE PRN INJ RADIOLOGY 12/08/19 09:00 12/08/19 23:59 Meropenem 500 mg/ Sodium Chloride 55 ml @ 110 mls/hr Q24H IVPB 12/04/19 12:00 12/10/19 11:59 12/08/19 15:27 Morphine Sulfate (Morphine Sulfate) 2 mg Q4H PRN IVP Severe Pain (Pain Scale 7-10) 12/03/19 21:17 12/10/19 21:16 12/08/19 10:52 Nitroglycerin (Ntg) 0.4 mg Q5M PRN SL Prn Chest Pain 12/03/19 21:17 01/02/20 21:16 Ondansetron HCl (Zofran) 4 mg Q6H PRN IVP Nausea & Vomiting 12/03/19 21:17 01/02/20 21:16 Polyethylene Glycol (Miralax) 17 gm DAILYPRN PRN NG Constipation 12/03/19 21:17 01/02/20 21:16 Promethazine HCl/ Codeine (Phenergan with Codeine) 5 ml Q4H PRN NG For Cough 12/03/19 21:17 01/02/20 21:16 Sevelamer Carbonate (Renvela) 1,600 mg THREE TIMES A DAY ORAL 2/27/20 13:00 01/07/20 12:59 12/08/19 17:18 Sodium Hypochlorite (Dakin's Quarter Strength) 1 applic DAILY TOPIC 12/08/19 09:00 01/07/20 08:59 12/08/19 08:28 Vancomycin HCl (Vanco rx to dose) 1 ea DAILY PRN MISC Per rx protocol 12/05/19 11:45 01/04/20 11:44 Allergies: Coded Allergies: No Known Allergies (Unverified , 11/24/19) ROS Limited/Unobtainable: No Constitutional: Reports: no symptoms HEENT: Reports: no symptoms Cardiovascular: Reports: no symptoms Respiratory: Reports: no symptoms Gastrointestinal/Abdominal: Reports: no symptoms Genitourinary: Reports: no symptoms Neurologic/Psychiatric: Reports: no symptoms Subjective 59 YO M admitted with respiratory failure. Cover for Int Med-Dr Ceja. JA Objective Last Vital Signs Date Time Temp Pulse Resp B/P (MAP) Pulse Ox O2 Delivery O2 Flow Rate FiO2 12/08/19 17:18 100/51 12/08/19 16:00 Nasal Cannula 3.0 Nasal Cannula 3.0 12/08/19 16:00 97.8 76 20 100 12/08/19 08:24 36 Laboratory Tests Test 12/08/19 03:45 White Blood Count 9.8 K/UL (4.8-10.8) Red Blood Count 2.61 M/UL (4.70-6.10) L Hemoglobin 7.4 G/DL (14.2-18.0) L Hematocrit 22.2 % (42.0-52.0) L Mean Corpuscular Volume 85 FL (80-99) Mean Corpuscular Hemoglobin 28.3 PG (27.0-31.0) Mean Corpuscular Hemoglobin Concent 33.3 G/DL (32.0-36.0) Red Cell Distribution Width 13.4 % (11.6-14.8) Platelet Count 328 K/UL (150-450) Mean Platelet Volume 6.0 FL (6.5-10.1) L Neutrophils (%) (Auto) % (45.0-75.0) Lymphocytes (%) (Auto) % (20.0-45.0) Monocytes (%) (Auto) % (1.0-10.0) Eosinophils (%) (Auto) % (0.0-3.0) Basophils (%) (Auto) % (0.0-2.0) Erythrocyte Sedimentation Rate 136 MM/HR (0-20) H Sodium Level 137 MMOL/L (136-145) Potassium Level 4.7 MMOL/L (3.5-5.1) Chloride Level 97 MMOL/L (98-107) L Carbon Dioxide Level 28 MMOL/L (21-32) Anion Gap 12 mmol/L (5-15) Blood Urea Nitrogen 81 mg/dL (7-18) H Creatinine 8.6 MG/DL (0.55-1.30) H Estimat Glomerular Filtration Rate 7.8 mL/min (>60) Glucose Level 110 MG/DL (74-106) H Calcium Level 8.3 MG/DL (8.5-10.1) L Phosphorus Level 8.1 MG/DL (2.5-4.9) H Magnesium Level 2.2 MG/DL (1.8-2.4) Total Bilirubin 0.4 MG/DL (0.2-1.0) Aspartate Amino Transf (AST/SGOT) 34 U/L (15-37) Alanine Aminotransferase (ALT/SGPT) 28 U/L (12-78) Alkaline Phosphatase 128 U/L (46-116) H C-Reactive Protein, Quantitative 7.4 mg/dL (0.00-0.90) H Total Protein 6.5 G/DL (6.4-8.2) Albumin 1.9 G/DL (3.4-5.0) L Globulin 4.6 g/dL Albumin/Globulin Ratio 0.4 (1.0-2.7) L Random Vancomycin Level 23.5 ug/mL Microbiology Date/Time Source Procedure Growth Status 12/06/19 12:10 Blood Blood Culture - Preliminary NO GROWTH AFTER 24 HOURS Resulted 12/06/19 12:10 Blood Blood Culture - Preliminary NO GROWTH AFTER 24 HOURS Resulted 12/06/19 07:57 Other(Specify in comment) Catheter Tip Culture - Preliminary NO GROWTH AFTER 48 HOURS Resulted Intake and Output 12/07/19 12/08/19 19:00 07:00 Intake Total 1000 ml 240 ml Output Total 400 ml 100 ml Balance 600 ml 140 ml Intake Oral 1000 ml 240 ml Output Urine Total 400 ml 100 ml Objective PHYSICAL EXAMINATION: GENERAL: The patient is a well-developed and well-nourished male, in moderate respiratory distress. HEENT: Eyes, pupils are equal and responsive to light and accommodation. Extraocular movements are intact. NECK: Supple without lymphadenopathy. CHEST: nasal canula; Mechanical breath sounds, otherwise without wheezes or rales. CARDIOVASCULAR: Regular rate. S1 and S2 normal without murmurs, rubs, or gallops. ABDOMEN: Soft, nontender, and nondistended. Positive bowel sounds. No evidence of hepatosplenomegaly. Currently, no rebound or guarding noted. EXTREMITIES: Negative for clubbing, cyanosis, or edema. RECTAL/GENITAL: Refused. NEUROLOGIC: Cranial nerves II through XII are grossly intact without focal deficits. Assessment/Plan Assessment/Plan ASSESSMENT: This is a 59-year-old male. 1. Respiratory failure. 2. Pneumonia. 3. Probable sepsis. 4. Diabetes type 2. 5. Hypertension. 6. Hypercholesterolemia. TREATMENT: 1. Respiratory failure/pneumonia. The patient is currently tolerating nasal canula in the intensive care unit. A Pulmonary consultation has been obtained with Dr. Brandy Milton. Sputum=ESBL E. Coli. ABX=meropenem and vanco. ID=Dr Souza Continue Tamiflu per ID=Dr Andrade. We will follow recommendations of Pulmonary. 2. Sepsis. Blood cultures=Staph Hominis. ABX=meropenem and vanco 3. Diabetes type 2. A NovoLog sliding scale has been instituted. 4. Hypertension. The patient is currently hypotensive. Hold antihypertensive medication. 5. Hypercholesterolemia. Continue atorvastatin as above. Sidney Galaviz MD Dec 08, 2019 18:23
--- NOTE | 2019-12-08 19:03 | NUR ---
HAND-OFF: Report given to YUKI Martínez.
--- NOTE | 2019-12-08 19:04 | NUR ---
NURSE NOTES: Report received from YUKI Browning. Pt sleeping in the bed, no acute distress noted at this time. SR on hall monitor. On 4L NC, with no sob noted. IV on L W 20G, SL. R H 20G, SL, asymptomatic. Bed in the lowest position. Side rails up x3. Call light within reach. Will continue to monitor.
[2019-12-08] MEDS: Dyna-Hex 2% Top Sol 2oz TOPIC SCH (21:21)
--- NOTE | 2019-12-08 23:50 | NUR ---
NURSE NOTES: 1PRBC given. No reaction noted. VS WNL. Will continue to monitor.
[2019-12-09] VITALS: BP 127/57
[2019-12-09] MEDS: HydrALAZINE 50mg tab GT SCH ×2 (00:38→06:09)
--- NOTE | 2019-12-09 00:45 | NUR ---
NURSE NOTES: No acute distress noted. Bed bath given. Dressing changed on sacral. Will continue to monitor.
[2019-12-09 04:00] VITALS: BP 128/62
[2019-12-09] MEDS: NovoLOG Insulin Flexpen SUBQ SCH ×4 (06:09→21:00)
[2019-12-09 06:54] LABS: BASOPHILS % (AUTO) 0.4 % (0.0-2.0); HEMATOCRIT 25.4 % (42.0-52.0); HEMOGLOBIN 8.4 G/DL (14.2-18.0); LYMPHOCYTES % (AUTO) 14.5 % (20.0-45.0); MEAN CORPUSCULAR VOLUME 86 FL (80-99); NEUTROPHILS % (AUTO) 73.1 % (45.0-75.0); PLATELET COUNT 296 K/UL (150-450); RED BLOOD COUNT 2.96 M/UL (4.70-6.10); RED CELL DISTRIBUTION WIDTH 13.2 % (11.6-14.8); WHITE BLOOD COUNT 9.5 K/UL (4.8-10.8)
[2019-12-09 07:18] LABS: % IRON SATURATION 21 % (15-50); IRON 37 ug/dL (50-175); TOTAL IRON BINDING CAPACITY 173 ug/dL (250-450)
[2019-12-09 07:25] LABS: ALANINE AMINOTRANSFERASE 30 U/L (12-78); ALBUMIN 1.9 G/DL (3.4-5.0); ALBUMIN/GLOBULIN RATIO 0.4 (1.0-2.7); ALKALINE PHOSPHATASE 136 U/L (46-116); ANION GAP 15 mmol/L (5-15); ASPARTATE AMINO TRANSFERASE 33 U/L (15-37); BILIRUBIN,TOTAL 0.3 MG/DL (0.2-1.0); BLOOD UREA NITROGEN 49 mg/dL (7-18); CALCIUM 8.4 MG/DL (8.5-10.1); CARBON DIOXIDE 24 MMOL/L (21-32); CHLORIDE 99 MMOL/L (98-107); CREATININE 6.1 MG/DL (0.55-1.30); FERRITIN 899 NG/ML (8-388); POTASSIUM 4.3 MMOL/L (3.5-5.1); SODIUM 138 MMOL/L (136-145)
[2019-12-09 07:37] LABS: PHOSPHORUS 6.1 MG/DL (2.5-4.9)
--- NOTE | 2019-12-09 07:40 | NUR ---
HAND-OFF: Report given to YUKI Fu. No distress noted at this time.
[2019-12-09 08:00] VITALS: BP 123/59
[2019-12-09] MEDS: Carvedilol 12.5mg tab NG SCH ×2 (09:27→21:18)
[2019-12-09] MEDS: Dakin's 0.125% Soln (Quarter Strength) 16oz TOPIC SCH (09:28)
[2019-12-09] MEDS: Heparin 5000 units/ml inj SUBQ SCH ×2 (09:29→21:28)
--- NOTE | 2019-12-09 10:41 | Nephrology Progress Note ---
Assessment/Plan Problem List: (1) ARF (acute renal failure) (2) Acute respiratory failure (3) Septic shock (4) Anemia (5) History of hypertension (6) Diabetes mellitus (7) Acute on chronic systolic heart failure Assessment: ej Fx 40 Assessment Acute renal failure- ? Underlying CKD Respiratory failure Anemia Sepsis / Shock ? Pneumonia DM HTN by history Gout left BKA Cardiomyopathy - Ej Fx 40% Plan Plan: Has permacath- dialysed 12/08 next DC quiñones ? Transfuse add phos binders was transfused previously on coreg hydralazine discussed with ICU supervisor in charge DC IV previously DC Hydrocortisone Antibiotics urine studies avoid nephrotoxics monitor renal parameters Anemia hairston per orders Subjective ROS Limited/Unobtainable: No Constitutional: Reports: malaise Objective Objective Last 24 Hour Vital Signs Date Time Temp Pulse Resp B/P (MAP) Pulse Ox O2 Delivery O2 Flow Rate FiO2 12/09/19 09:28 123/59 12/09/19 09:27 78 123/59 12/09/19 08:00 Nasal Cannula 4.0 Nasal Cannula 4.0 12/09/19 08:00 97.9 78 20 123/59 (80) 100 12/09/19 08:00 77 12/09/19 07:51 100 Nasal Cannula 2.0 28 12/09/19 06:09 126/68 12/09/19 04:00 78 12/09/19 04:00 Nasal Cannula 4.0 Nasal Cannula 4.0 12/09/19 04:00 98.6 80 20 128/62 (84) 99 12/09/19 00:38 127/67 12/09/19 00:00 98.8 78 20 127/57 (80) 100 12/09/19 00:00 78 12/09/19 00:00 Nasal Cannula 4.0 Nasal Cannula 4.0 12/08/19 21:00 75 110/53 12/08/19 20:00 98.8 78 16 125/61 (82) 100 12/08/19 20:00 Nasal Cannula 4.0 Nasal Cannula 4.0 12/08/19 20:00 79 12/08/19 19:31 78 18 99 Nasal Cannula 3.0 32 12/08/19 19:31 99 Nasal Cannula 3.0 32 12/08/19 17:18 100/51 12/08/19 17:18 100/51 12/08/19 16:00 Nasal Cannula 3.0 Nasal Cannula 3.0 12/08/19 16:00 97.8 76 20 109/58 (75) 100 12/08/19 16:00 73 12/08/19 12:17 109/59 12/08/19 12:00 103/49 12/08/19 12:00 71 12/08/19 12:00 97.8 72 20 109/51 (70) 100 12/08/19 12:00 Nasal Cannula 3.0 Nasal Cannula 3.0 Intake and Output 12/08/19 12/09/19 19:00 07:00 Intake Total 2495 ml 750 ml Output Total 2175 ml Balance 320 ml 750 ml Intake Oral 440 ml 500 ml IV Total 55 ml Blood Product 250 ml Hemodialysis 2000 ml Output Urine Total 175 ml Hemodialysis UF 2000 ml # Voids 1 Laboratory Tests 12/09/19 04:00: White Blood Count 9.5, Red Blood Count 2.96L, Hemoglobin 8.4L, Hematocrit 25.4L , Mean Corpuscular Volume 86, Mean Corpuscular Hemoglobin 28.5, Mean Corpuscular Hemoglobin Concent 33.2, Red Cell Distribution Width 13.2, Platelet Count 296, Mean Platelet Volume 6.2L, Neutrophils (%) (Auto) 73.1, Lymphocytes ( %) (Auto) 14.5L, Monocytes (%) (Auto) 9.0, Eosinophils (%) (Auto) 3.0, Basophils (%) (Auto) 0.4, Sodium Level 138, Potassium Level 4.3, Chloride Level 99, Carbon Dioxide Level 24, Anion Gap 15, Blood Urea Nitrogen 49H, Creatinine 6.1H, Estimat Glomerular Filtration Rate 11.5, Glucose Level 91, Uric Acid 5.4, Calcium Level 8.4L, Phosphorus Level 6.1H, Magnesium Level 2.0, Iron Level 37L, Total Iron Binding Capacity 173L, Percent Iron Saturation 21, Unsaturated Iron Binding 136, Ferritin 899H, Total Bilirubin 0.3, Aspartate Amino Transf (AST/ SGOT) 33, Alanine Aminotransferase (ALT/SGPT) 30, Alkaline Phosphatase 136H, C- Reactive Protein, Quantitative 6.2H, Pro-B-Type Natriuretic Peptide 89036Q, Total Protein 6.8, Albumin 1.9L, Globulin 4.9, Albumin/Globulin Ratio 0.4L, Random Vancomycin Level 20.0 Height (Feet): 5 Height (Inches): 8.00 Weight (Pounds): 229 General Appearance: no apparent distress Cardiovascular: normal rate Respiratory/Chest: decreased breath sounds Abdomen: soft Objective no change Tej Sidhu MD Dec 09, 2019 10:41
[2019-12-09] MEDS ORDERED: HydrALAZINE 25mg tab ORAL PRN ×3 (10:45→20:37)
--- NOTE | 2019-12-09 11:39 | NUR ---
ST NOTES: SWALLOW STATUS: PATIENT TOLERATING SOFT CHEW AND THIN LIQUIDS W/O OVERT ASPIRATION. GOALS MET FOR INTAKE 75 TO 100%. GOALS MET FOR STAFF AND PATIENT TRAINED/EDUCATED IN ASPIRATION PRECAUTIONS AND SWALLOW STRATEGIES POSTED ABOVE BED. REVIEWED MOD BARIUM SWALLOW STUDY IMAGES AND COMPLETED REPORT (SEE REPORT FOR DETAILS AND UPDATES). HOLD ON SWALLOW EXERCISES NOW SINCE PATIENT TIRED AND JUST RECEIVED MORPHINE. PLAN: CONTINUE WITH CURRENT DIET/LIQUIDS WITH POSTED PRECAUTIONS. CONTINUE WITH ORAL CARE PRN AND KEEP OUT DENTURES FOR NOW SKILLED DYSPHAGIA MANAGEMENT AND TX MODIFIED BARIUM SWALLOW STUDY MBSS IP OR OP IF DC TO SNF (DO NOT HOLD UP D/C FOR THIS STUDY)
[2019-12-09] MEDS: Meropenem 500 MG in NS 55 ML IVPB SCH (11:48)
[2019-12-09 12:00] VITALS: BP 104/55
--- NOTE | 2019-12-09 12:10 | Pulmonology Progress Note ---
Assessment/Plan Problems: (1) Acute respiratory failure (2) ESRD (end stage renal disease) (3) Septic shock (4) Chronic systolic heart failure (5) History of hypertension (6) Diabetes mellitus (7) History of left below knee amputation (8) History of gout Assessment/Plan get HD catheter yesterday repeat cultures titrate fio2 to sat of 92% check cultures dc planning Subjective ROS Limited/Unobtainable: No Interval Events: got the HD Constitutional: Reports: no symptoms HEENT: Repors: no symptoms Respiratory: Reports: no symptoms Allergies: Coded Allergies: No Known Allergies (Unverified , 11/24/19) Objective Last 24 Hour Vital Signs Date Time Temp Pulse Resp B/P (MAP) Pulse Ox O2 Delivery O2 Flow Rate FiO2 12/09/19 09:28 123/59 12/09/19 09:27 78 123/59 12/09/19 08:00 Nasal Cannula 4.0 Nasal Cannula 4.0 12/09/19 08:00 97.9 78 20 123/59 (80) 100 12/09/19 08:00 77 12/09/19 07:51 100 Nasal Cannula 2.0 12/09/19 06:09 126/68 12/09/19 04:00 78 12/09/19 04:00 Nasal Cannula 4.0 Nasal Cannula 4.0 12/09/19 04:00 98.6 80 20 128/62 (84) 99 12/09/19 00:38 127/67 12/09/19 00:00 98.8 78 20 127/57 (80) 100 12/09/19 00:00 78 12/09/19 00:00 Nasal Cannula 4.0 Nasal Cannula 4.0 12/08/19 21:00 75 110/53 12/08/19 20:00 98.8 78 16 125/61 (82) 100 12/08/19 20:00 Nasal Cannula 4.0 Nasal Cannula 4.0 12/08/19 20:00 79 12/08/19 19:31 78 18 99 Nasal Cannula 3.0 32 12/08/19 19:31 99 Nasal Cannula 3.0 32 12/08/19 17:18 100/51 12/08/19 17:18 100/51 12/08/19 16:00 Nasal Cannula 3.0 Nasal Cannula 3.0 2/27/20 16:00 97.8 76 20 109/58 (75) 100 12/08/19 16:00 73 12/08/19 12:17 109/59 Intake and Output 12/08/19 12/09/19 19:00 07:00 Intake Total 2495 ml 750 ml Output Total 2175 ml Balance 320 ml 750 ml Intake Oral 440 ml 500 ml IV Total 55 ml Blood Product 250 ml Hemodialysis 2000 ml Output Urine Total 175 ml Hemodialysis UF 2000 ml # Voids 1 General Appearance: WD/WN HEENT: normocephalic, atraumatic Respiratory/Chest: chest wall non-tender, lungs clear Cardiovascular: normal peripheral pulses, normal rate Abdomen: normal bowel sounds, no organomegaly Extremities: no cyanosis Skin: no lesions Microbiology Date/Time Source Procedure Growth Status 12/06/19 12:10 Blood Blood Culture - Preliminary NO GROWTH AFTER 48 HOURS Resulted 12/06/19 12:10 Blood Blood Culture - Preliminary NO GROWTH AFTER 48 HOURS Resulted Laboratory Tests 12/09/19 04:00: White Blood Count 9.5, Red Blood Count 2.96L, Hemoglobin 8.4L, Hematocrit 25.4L , Mean Corpuscular Volume 86, Mean Corpuscular Hemoglobin 28.5, Mean Corpuscular Hemoglobin Concent 33.2, Red Cell Distribution Width 13.2, Platelet Count 296, Mean Platelet Volume 6.2L, Neutrophils (%) (Auto) 73.1, Lymphocytes ( %) (Auto) 14.5L, Monocytes (%) (Auto) 9.0, Eosinophils (%) (Auto) 3.0, Basophils (%) (Auto) 0.4, Sodium Level 138, Potassium Level 4.3, Chloride Level 99, Carbon Dioxide Level 24, Anion Gap 15, Blood Urea Nitrogen 49H, Creatinine 6.1H, Estimat Glomerular Filtration Rate 11.5, Glucose Level 91, Uric Acid 5.4, Calcium Level 8.4L, Phosphorus Level 6.1H, Magnesium Level 2.0, Iron Level 37L, Total Iron Binding Capacity 173L, Percent Iron Saturation 21, Unsaturated Iron Binding 136, Ferritin 899H, Total Bilirubin 0.3, Aspartate Amino Transf (AST/ SGOT) 33, Alanine Aminotransferase (ALT/SGPT) 30, Alkaline Phosphatase 136H, C- Reactive Protein, Quantitative 6.2H, Pro-B-Type Natriuretic Peptide [id number], Total Protein 6.8, Albumin 1.9L, Globulin 4.9, Albumin/Globulin Ratio 0.4L, Random Vancomycin Level 20.0 Current Medications Medications (Trade) Dose Ordered Sig/Valeriano Route PRN Reason Start Time Stop Time Status Last Admin Dose Admin Acetaminophen (Tylenol) 650 mg Q4H PRN NG Mild Pain/Temp > 100.5 12/03/19 21:15 01/02/20 21:14 12/07/19 20:51 Barium Sulfate (Varibar Honey) 250 ml NOW PRN MC RAD 12/07/19 15:45 12/10/19 15:38 Barium Sulfate (Varibar [place]) 240 ml NOW PRN MC RAD 12/07/19 15:45 12/10/19 15:38 Barium Sulfate (Varibar Pudding) 230 ml NOW PRN MC RAD 12/07/19 15:45 12/10/19 15:38 Barium Sulfate (Varibar Thin Liquid powder) 148 gm NOW PRN MC RAD 12/07/19 15:45 12/10/19 15:38 Carvedilol (Coreg) 12.5 mg EVERY 12 HOURS NG 12/03/19 22:00 01/02/20 21:59 12/09/19 09:27 Chlorhexidine Gluconate (Katia-Hex 2%) 1 applic DAILY@2000 TOPIC 12/04/19 20:00 12/25/19 19:59 12/08/19 21:21 Dextrose (Dextrose 50%) 25 ml Q30M PRN IV Hypoglycemia 12/03/19 21:30 12/24/19 13:29 Dextrose (Dextrose 50%) 50 ml Q30M PRN IV Hypoglycemia 12/03/19 21:30 12/24/19 13:29 Docusate Sodium (Colace) 100 mg THREE TIMES A DAY ORAL 12/09/19 13:00 01/08/20 12:59 Folic Acid (Folate) 1 mg DAILY ORAL 12/10/19 09:00 12/27/19 08:59 Heparin Sodium (Porcine) (Heparin 5000 units/ml) 5,000 units EVERY 12 HOURS SUBQ 12/03/19 22:00 01/02/20 21:59 12/09/19 09:29 Hydralazine HCl (Apresoline) 25 mg Q4H PRN ORAL bp over 160 syst 12/09/19 10:45 01/08/20 10:44 Hydralazine HCl (Apresoline) 50 mg EVERY 8 HOURS ORAL 12/09/19 14:00 01/01/20 00:00 Insulin Aspart (NovoLOG) BEFORE MEALS AND HS SUBQ 12/03/19 21:14 01/02/20 21:13 12/06/19 17:14 Isosorbide Dinitrate (Isordil) 20 mg TID GT 12/04/19 09:00 01/01/20 08:59 12/09/19 09:28 Meropenem 500 mg/ Sodium Chloride 55 ml @ 110 mls/hr Q24H IVPB 12/04/19 12:00 12/10/19 11:59 12/09/19 11:48 Morphine Sulfate (Morphine Sulfate) 2 mg Q4H PRN IVP Severe Pain (Pain Scale 7-10) 12/03/19 21:17 12/10/19 21:16 12/08/19 10:52 Nitroglycerin (Ntg) 0.4 mg Q5M PRN SL Prn Chest Pain 12/03/19 21:17 01/02/20 21:16 Ondansetron HCl (Zofran) 4 mg Q6H PRN IVP Nausea & Vomiting 12/03/19 21:17 01/02/20 21:16 Pantoprazole (Protonix) 40 mg EVERY 12 HOURS ORAL 12/09/19 21:00 01/08/20 20:59 Polyethylene Glycol (Miralax) 17 gm DAILYPRN PRN NG Constipation 12/03/19 21:17 01/02/20 21:16 Promethazine HCl/ Codeine (Phenergan with Codeine) 5 ml Q4H PRN NG For Cough 12/03/19 21:17 01/02/20 21:16 Sevelamer Carbonate (Renvela) 2,400 mg THREE TIMES A DAY ORAL 12/09/19 13:00 01/07/20 12:59 Sodium Hypochlorite (Dakin's Quarter Strength) 1 applic DAILY TOPIC 12/08/19 09:00 01/07/20 08:59 12/09/19 09:28 Vancomycin HCl (Vanco rx to dose) 1 ea DAILY PRN MISC Per rx protocol 12/05/19 11:45 01/04/20 11:44 Brandy Milton MD Dec 09, 2019 12:10
[2019-12-09] MEDS: Docusate 100mg cap ORAL SCH ×2 (13:29→18:02)
--- NOTE | 2019-12-09 13:34 | NUR ---
INSURANCE REVIEW FAXED TO [facility] DEPT [phone] AUTH# [id number] NCM: JARRED GONSALVES FAX ALL CLINICALS TO: [phone]
[2019-12-09] MEDS ORDERED: HydrALAZINE 50mg tab ORAL SCH ×2 (14:00→22:00)
--- NOTE | 2019-12-09 14:24 | Infectious Diseases Prog Note ---
Assessment/Plan Assessment/Plan Assessment: Septic Shock- SP Pneumonia -12/01 CXR: probably unchanged bilateral diffuse interstitial and airspace disease. -11/30 sp cx:Interim marked worsening of bilateral pulmonary parenchymal disease, over one day -11/29 sp cx ESBL E.coli (S zosyn, Imipenem, bactrim) -11/24 u/a neg; ucx neg Bcx NTD influenza sc neg CXR: Bilateral dense consolidation, likely pneumonia. Pulmonary edema also possible. Correlate with clinical findings sp cx ordered,not done legionella ag urine neg S. hominis bacteremia- RIJ infection vs contamination - SP Perm Cath insertion 12/08 - HD Cath removed on 12/06 - RIJ removed on 12/02 -11/27 Bcx 1/4 S. hominis; 11/29 Bcx 1/ S. hominis (RIJ), NTD x2 (peripheral) Low grade fever , Sp Leukocytosis, improving ARDS Acute respiratory failure s/p intubation 11/24, sp extubation 11/29, now on bipap GANGA on CKD; now on HD 11/27 Elevated LFTs;improving Troponinemia Dm2 Gout s/p L BKA allergic rhinitis CAD s/p stent prosthetic AVR hx of esophagitis PVD chronic sCHF HLD HTN SNF resident Plan: - cont IV Vanco # 5/10 -Continue empiric Meropenem # 9/10 for ESBL E.coli PNA -12/01 SP IV Vancomycin #8, Tamiflu #7 -11/30 SP LEvaquin #7, Cefepime #7 -Monitor CBC/CMP, temperatures -aspiration precautions - Bcx x2 Thank you for this consultation. Will continue to follow along with you. Subjective Allergies: Coded Allergies: No Known Allergies (Unverified , 11/24/19) Subjective comfortable no acute event Objective Vital Signs Last 24 Hour Vital Signs Date Time Temp Pulse Resp B/P (MAP) Pulse Ox O2 Delivery O2 Flow Rate FiO2 12/09/19 13:30 104/55 12/09/19 12:49 104/55 12/09/19 12:00 96.1 76 20 104/55 (71) 100 12/09/19 12:00 77 12/09/19 12:00 Nasal Cannula 2.0 Nasal Cannula 4.0 12/09/19 09:28 123/59 12/09/19 09:27 78 123/59 12/09/19 08:00 Nasal Cannula 4.0 Nasal Cannula 4.0 12/09/19 08:00 97.9 78 20 123/59 (80) 100 12/09/19 08:00 77 12/09/19 07:51 100 Nasal Cannula 2.0 28 12/09/19 06:09 126/68 12/09/19 04:00 78 12/09/19 04:00 Nasal Cannula 4.0 Nasal Cannula 4.0 12/09/19 04:00 98.6 80 20 128/62 (84) 99 12/09/19 00:38 127/67 12/09/19 00:00 98.8 78 20 127/57 (80) 100 12/09/19 00:00 78 12/09/19 00:00 Nasal Cannula 4.0 Nasal Cannula 4.0 12/08/19 21:00 75 110/53 12/08/19 20:00 98.8 78 16 125/61 (82) 100 12/08/19 20:00 Nasal Cannula 4.0 Nasal Cannula 4.0 12/08/19 20:00 79 12/08/19 19:31 78 18 99 Nasal Cannula 3.0 32 12/08/19 19:31 99 Nasal Cannula 3.0 32 12/08/19 17:18 100/51 12/08/19 17:18 100/51 12/08/19 16:00 Nasal Cannula 3.0 Nasal Cannula 3.0 12/08/19 16:00 97.8 76 20 109/58 (75) 100 12/08/19 16:00 73 Height (Feet): 5 Height (Inches): 8.00 Weight (Pounds): 229 Respiratory/Chest: lungs clear Cardiovascular: regularly irregular Abdomen: no mass Laboratory Tests Test 12/09/19 04:00 White Blood Count 9.5 K/UL (4.8-10.8) Red Blood Count 2.96 M/UL (4.70-6.10) L Hemoglobin 8.4 G/DL (14.2-18.0) L Hematocrit 25.4 % (42.0-52.0) L Mean Corpuscular Volume 86 FL (80-99) Mean Corpuscular Hemoglobin 28.5 PG (27.0-31.0) Mean Corpuscular Hemoglobin Concent 33.2 G/DL (32.0-36.0) Red Cell Distribution Width 13.2 % (11.6-14.8) Platelet Count 296 K/UL (150-450) Mean Platelet Volume 6.2 FL (6.5-10.1) L Neutrophils (%) (Auto) 73.1 % (45.0-75.0) Lymphocytes (%) (Auto) 14.5 % (20.0-45.0) L Monocytes (%) (Auto) 9.0 % (1.0-10.0) Eosinophils (%) (Auto) 3.0 % (0.0-3.0) Basophils (%) (Auto) 0.4 % (0.0-2.0) Sodium Level 138 MMOL/L (136-145) Potassium Level 4.3 MMOL/L (3.5-5.1) Chloride Level 99 MMOL/L (98-107) Carbon Dioxide Level 24 MMOL/L (21-32) Anion Gap 15 mmol/L (5-15) Blood Urea Nitrogen 49 mg/dL (7-18) H Creatinine 6.1 MG/DL (0.55-1.30) H Estimat Glomerular Filtration Rate 11.5 mL/min (>60) Glucose Level 91 MG/DL (74-106) Uric Acid 5.4 MG/DL (2.6-7.2) Calcium Level 8.4 MG/DL (8.5-10.1) L Phosphorus Level 6.1 MG/DL (2.5-4.9) H Magnesium Level 2.0 MG/DL (1.8-2.4) Iron Level 37 ug/dL (50-175) L Total Iron Binding Capacity 173 ug/dL (250-450) L Percent Iron Saturation 21 % (15-50) Unsaturated Iron Binding 136 ug/dL (112-346) Ferritin 899 NG/ML (8-388) H Total Bilirubin 0.3 MG/DL (0.2-1.0) Aspartate Amino Transf (AST/SGOT) 33 U/L (15-37) Alanine Aminotransferase (ALT/SGPT) 30 U/L (12-78) Alkaline Phosphatase 136 U/L (46-116) H C-Reactive Protein, Quantitative 6.2 mg/dL (0.00-0.90) H Pro-B-Type Natriuretic Peptide 45684 pg/mL (0-125) H Total Protein 6.8 G/DL (6.4-8.2) Albumin 1.9 G/DL (3.4-5.0) L Globulin 4.9 g/dL Albumin/Globulin Ratio 0.4 (1.0-2.7) L Random Vancomycin Level 20.0 ug/mL Current Medications Medications (Trade) Dose Ordered Sig/Valeriano Route PRN Reason Start Time Stop Time Status Last Admin Dose Admin Acetaminophen (Tylenol) 650 mg Q4H PRN NG Mild Pain/Temp > 100.5 12/03/19 21:15 01/02/20 21:14 12/07/19 20:51 Barium Sulfate (Varibar Honey) 250 ml NOW PRN MC RAD 12/07/19 15:45 12/10/19 15:38 Barium Sulfate (Varibar Nov[place]) 240 ml NOW PRN MC RAD 12/07/19 15:45 12/10/19 15:38 Barium Sulfate (Varibar Pudding) 230 ml NOW PRN MC RAD 12/07/19 15:45 12/10/19 15:38 Barium Sulfate (Varibar Thin Liquid powder) 148 gm NOW PRN MC RAD 12/07/19 15:45 12/10/19 15:38 Carvedilol (Coreg) 12.5 mg EVERY 12 HOURS NG 12/03/19 22:00 01/02/20 21:59 12/09/19 09:27 Chlorhexidine Gluconate (Katia-Hex 2%) 1 applic DAILY@2000 TOPIC 12/04/19 20:00 12/25/19 19:59 12/08/19 21:21 Dextrose (Dextrose 50%) 25 ml Q30M PRN IV Hypoglycemia 12/03/19 21:30 12/24/19 13:29 Dextrose (Dextrose 50%) 50 ml Q30M PRN IV Hypoglycemia 12/03/19 21:30 12/24/19 13:29 Docusate Sodium (Colace) 100 mg THREE TIMES A DAY ORAL 12/09/19 13:00 01/08/20 12:59 12/09/19 13:29 Folic Acid (Folate) 1 mg DAILY ORAL 12/10/19 09:00 12/27/19 08:59 Heparin Sodium (Porcine) (Heparin 5000 units/ml) 5,000 units EVERY 12 HOURS SUBQ 12/03/19 22:00 01/02/20 21:59 12/09/19 09:29 Hydralazine HCl (Apresoline) 25 mg Q4H PRN ORAL bp over 160 syst 12/09/19 10:45 01/08/20 10:44 Hydralazine HCl (Apresoline) 50 mg EVERY 8 HOURS ORAL 12/09/19 14:00 01/01/20 00:00 Insulin Aspart (NovoLOG) BEFORE MEALS AND HS SUBQ 12/03/19 21:14 01/02/20 21:13 12/06/19 17:14 Isosorbide Dinitrate (Isordil) 20 mg TID GT 12/04/19 09:00 01/01/20 08:59 12/09/19 09:28 Meropenem 500 mg/ Sodium Chloride 55 ml @ 110 mls/hr Q24H IVPB 12/04/19 12:00 12/11/19 23:59 12/09/19 11:48 Morphine Sulfate (Morphine Sulfate) 2 mg Q4H PRN IVP Severe Pain (Pain Scale 7-10) 12/03/19 21:17 12/10/19 21:16 12/08/19 10:52 Nitroglycerin (Ntg) 0.4 mg Q5M PRN SL Prn Chest Pain 12/03/19 21:17 01/02/20 21:16 Ondansetron HCl (Zofran) 4 mg Q6H PRN IVP Nausea & Vomiting 12/03/19 21:17 01/02/20 21:16 Pantoprazole (Protonix) 40 mg EVERY 12 HOURS ORAL 12/09/19 21:00 01/08/20 20:59 Polyethylene Glycol (Miralax) 17 gm DAILYPRN PRN NG Constipation 12/03/19 21:17 01/02/20 21:16 Promethazine HCl/ Codeine (Phenergan with Codeine) 5 ml Q4H PRN NG For Cough 12/03/19 21:17 01/02/20 21:16 Sevelamer Carbonate (Renvela) 2,400 mg THREE TIMES A DAY ORAL 12/09/19 13:00 01/07/20 12:59 12/09/19 13:29 Sodium Hypochlorite (Dakin's Quarter Strength) 1 applic DAILY TOPIC 12/08/19 09:00 01/07/20 08:59 12/09/19 09:28 Vancomycin HCl (Vanco rx to dose) 1 ea DAILY PRN MISC Per rx protocol 12/05/19 11:45 01/04/20 11:44 Gabe Bush MD Dec 09, 2019 14:24
--- NOTE | 2019-12-09 14:36 | Surgery Progress Note ---
Surgery Progress Note Subjective Procedure Performed Right femoral temporary hemodialysis catheter removal Symptoms: improved Objective Last 24 Hour Vital Signs Date Time Temp Pulse Resp B/P (MAP) Pulse Ox O2 Delivery O2 Flow Rate FiO2 12/09/19 13:30 104/55 12/09/19 12:49 104/55 12/09/19 12:00 96.1 76 20 104/55 (71) 100 12/09/19 12:00 77 12/09/19 12:00 Nasal Cannula 2.0 Nasal Cannula 4.0 12/09/19 09:28 123/59 12/09/19 09:27 78 123/59 12/09/19 08:00 Nasal Cannula 4.0 Nasal Cannula 4.0 12/09/19 08:00 97.9 78 20 123/59 (80) 100 12/09/19 08:00 77 12/09/19 07:51 100 Nasal Cannula 2.0 28 12/09/19 06:09 126/68 12/09/19 04:00 78 12/09/19 04:00 Nasal Cannula 4.0 Nasal Cannula 4.0 12/09/19 04:00 98.6 80 20 128/62 (84) 99 12/09/19 00:38 127/67 12/09/19 00:00 98.8 78 20 127/57 (80) 100 12/09/19 00:00 78 12/09/19 00:00 Nasal Cannula 4.0 Nasal Cannula 4.0 12/08/19 21:00 75 110/53 12/08/19 20:00 98.8 78 16 125/61 (82) 100 12/08/19 20:00 Nasal Cannula 4.0 Nasal Cannula 4.0 12/08/19 20:00 79 12/08/19 19:31 78 18 99 Nasal Cannula 3.0 32 12/08/19 19:31 99 Nasal Cannula 3.0 32 12/08/19 17:18 100/51 12/08/19 17:18 100/51 12/08/19 16:00 Nasal Cannula 3.0 Nasal Cannula 3.0 12/08/19 16:00 97.8 76 20 109/58 (75) 100 12/08/19 16:00 73 I&O Intake and Output 12/08/19 12/09/19 19:00 07:00 Intake Total 2495 ml 750 ml Output Total 2175 ml Balance 320 ml 750 ml Intake Oral 440 ml 500 ml IV Total 55 ml Blood Product 250 ml Hemodialysis 2000 ml Output Urine Total 175 ml Hemodialysis UF 2000 ml # Voids 1 Dressing: saturated Wound: clean Cardiovascular: RSR Respiratory: clear Abdomen: soft, flat, non-tender, present bowel sounds Extremities: no cyanosis Laboratory Tests Test 12/09/19 04:00 White Blood Count 9.5 K/UL (4.8-10.8) Red Blood Count 2.96 M/UL (4.70-6.10) L Hemoglobin 8.4 G/DL (14.2-18.0) L Hematocrit 25.4 % (42.0-52.0) L Mean Corpuscular Volume 86 FL (80-99) Mean Corpuscular Hemoglobin 28.5 PG (27.0-31.0) Mean Corpuscular Hemoglobin Concent 33.2 G/DL (32.0-36.0) Red Cell Distribution Width 13.2 % (11.6-14.8) Platelet Count 296 K/UL (150-450) Mean Platelet Volume 6.2 FL (6.5-10.1) L Neutrophils (%) (Auto) 73.1 % (45.0-75.0) Lymphocytes (%) (Auto) 14.5 % (20.0-45.0) L Monocytes (%) (Auto) 9.0 % (1.0-10.0) Eosinophils (%) (Auto) 3.0 % (0.0-3.0) Basophils (%) (Auto) 0.4 % (0.0-2.0) Sodium Level 138 MMOL/L (136-145) Potassium Level 4.3 MMOL/L (3.5-5.1) Chloride Level 99 MMOL/L (98-107) Carbon Dioxide Level 24 MMOL/L (21-32) Anion Gap 15 mmol/L (5-15) Blood Urea Nitrogen 49 mg/dL (7-18) H Creatinine 6.1 MG/DL (0.55-1.30) H Estimat Glomerular Filtration Rate 11.5 mL/min (>60) Glucose Level 91 MG/DL (74-106) Uric Acid 5.4 MG/DL (2.6-7.2) Calcium Level 8.4 MG/DL (8.5-10.1) L Phosphorus Level 6.1 MG/DL (2.5-4.9) H Magnesium Level 2.0 MG/DL (1.8-2.4) Iron Level 37 ug/dL (50-175) L Total Iron Binding Capacity 173 ug/dL (250-450) L Percent Iron Saturation 21 % (15-50) Unsaturated Iron Binding 136 ug/dL (112-346) Ferritin 899 NG/ML (8-388) H Total Bilirubin 0.3 MG/DL (0.2-1.0) Aspartate Amino Transf (AST/SGOT) 33 U/L (15-37) Alanine Aminotransferase (ALT/SGPT) 30 U/L (12-78) Alkaline Phosphatase 136 U/L (46-116) H C-Reactive Protein, Quantitative 6.2 mg/dL (0.00-0.90) H Pro-B-Type Natriuretic Peptide 70526 pg/mL (0-125) H Total Protein 6.8 G/DL (6.4-8.2) Albumin 1.9 G/DL (3.4-5.0) L Globulin 4.9 g/dL Albumin/Globulin Ratio 0.4 (1.0-2.7) L Random Vancomycin Level 20.0 ug/mL Plan Problems: (1) Septic shock Assessment & Plan: Patient in septic shock prior central line and pressors intubated on vent support in the intensive care unit tachycardic. Renal insufficiency requiring hemodialysis. Temporary hemodialysis catheter indicated and recommended Please see procedure note Dialysis as per nephrology IV antibiotics post per infectious disease Dressing changes as per protocol We will monitor site for hematoma or infection No further acute surgical intervention recommended at this time will follow with recommendations thank you for let me participate patient's care extubated improved downgraded discussed care plan with family consent obtained plan to change to tunneled cath thursday (2) Acute respiratory failure Assessment & Plan: DAILY ESTIMATED NEEDS: Needs based on Critical care, sepsis 75kg adj 22-28 kcals/kg 5688-5959 total kcals 1.2-2 g protein/kg 90-150 g total protein 25-30 mL/kg 3911-5375 total fluid mLs NUTRITION DIAGNOSIS: Swallowing difficulty r/t resp status as evidenced by septic shock now s/p intubation, w/ NGT, NPO at this time. ENTERAL NUTRITION RECOMMENDATIONS: Nepro @40ml/hr x24 hrs + Prosource BID to provide 960ml, 78g + 22 g pro, 698ml free H2O - As medically appropriate, rec non oral feeds via NGT - Start Nepro @20ml/hr for 6 hrs. Advance as tolerated 10ml/hr q4-6 hrs to goal. - Add Prosource BID to better meet est pro needs - Flush per MD. HOB over 30 degrees -------- ADDITIONAL RECOMMENDATIONS: 1) Tf recs as above, feed as medically able 2) Ad PROSOURCE VIA NGT BID to better meet est pro needs 3) Per SNF: 69inches tall, last wt of 210 lbs (2/) -> rec weekly calibrated bed scale wts 4) [employer] eval upon extubation (3) Sepsis Assessment & Plan: Tunneled right permacath placed (4) History of left below knee amputation Assessment & Plan: Wound stable dressings intact elevate with pillow This patient is improving he spent some time with him at the bedside. We turned him to the right lateral decubitus and evaluated the wound. Fortunately what was considered to be a stage IV wound is actually not and a significant amount of the necrotic tissues actually buildup of hair and dried skin protectant. A fair amount of time was spent doing non-excisional debridement with gauze and moist saline until the area was fully cleaned. Identified was a stage II skin breakdown mainly epidermis that looked like necrotic eschar but fortunately was just epidermis and underlying healthy viable dermis with back bleeding. Wound was cleansed and total edges were identified and intact minimal tenderness on palpation good blanching tissue noted surrounding it. Thera honey placed followed by gauze dressing and foam dressing. Discussed care plan with patient. He is very compliant with turning and states he will remain off his mind will stay off his sacrum as much as possible will follow with recommendations. For now Thera honey impregnated gauze and foam dressing. Turn every 2 hours. Nutritional optimization. Ranjit Ralph Dec 09, 2019 14:36
[2019-12-09] MEDS ORDERED: Varibar Honey 250ml MC PRN ×2 (15:45→18:00)
[2019-12-09 16:00] VITALS: BP 115/59
--- NOTE | 2019-12-09 16:49 | NUR ---
CASE MANAGEMENT: NOTE CM UNABLE TO CONFIRM CHAIR TIME AT THIS TIME LOSS CLAIM CLERK HAS GONE FOR DAY. [facility] ATTN: KENZIE P: [phone] R: [phone]
--- NOTE | 2019-12-09 16:53 | NUR ---
CASE MANAGEMENT: REVIEW 12/09/2019 SI:SEPSIS. PNA. T 96.1 HR 77 RR 20 B/P 104/55 SATS 100% ON 2L/NC LABS: BUN 49 CR 6.1 CA 8.4 PHOS 6.1 ALP 136 CRP 6.2 BNP 07739 IS:HYDRALAZINE PO Q8H COREG NG Q12H PROTONIX NG Q12H INSULIN ASPART SUBQ AC/HS MEROPENEM IV Q24H ISORDIL GT TID SDU
[2019-12-09] MEDS ORDERED: Varibar Thin Liquid powder 148gm MC PRN (18:00)
[2019-12-09] MEDS ORDERED: Varibar Pudding 230ml MC PRN ×2 (19:00→20:15)
--- NOTE | 2019-12-09 19:30 | NUR ---
HAND-OFF: Report given to YUKI Zendejas. Patient in stable condition.
--- NOTE | 2019-12-09 19:31 | Internal Med Progress Note ---
Subjective Date of Service: Dec 09, 2019 Physician Name Sidney Galaviz Attending Physician Cezar Ceja MD Current Medications Medications (Trade) Dose Ordered Sig/Valeriano Route PRN Reason Start Time Stop Time Status Last Admin Dose Admin Acetaminophen (Tylenol) 650 mg Q4H PRN NG Mild Pain/Temp > 100.5 12/03/19 21:15 01/02/20 21:14 12/07/19 20:51 Barium Sulfate (Varibar Honey) 250 ml NOW PRN MC RAD 12/07/19 15:45 12/10/19 15:38 Barium Sulfate (Varibar [place]) 240 ml NOW PRN MC RAD 12/07/19 15:45 12/10/19 15:38 Barium Sulfate (Varibar Pudding) 230 ml NOW PRN MC RAD 12/07/19 15:45 12/10/19 15:38 Barium Sulfate (Varibar Thin Liquid powder) 148 gm NOW PRN MC RAD 12/07/19 15:45 12/10/19 15:38 Carvedilol (Coreg) 12.5 mg EVERY 12 HOURS NG 12/03/19 22:00 01/02/20 21:59 12/09/19 09:27 Chlorhexidine Gluconate (Katia-Hex 2%) 1 applic DAILY@2000 TOPIC 12/04/19 20:00 12/25/19 19:59 12/08/19 21:21 Dextrose (Dextrose 50%) 25 ml Q30M PRN IV Hypoglycemia 12/03/19 21:30 12/24/19 13:29 Dextrose (Dextrose 50%) 50 ml Q30M PRN IV Hypoglycemia 12/03/19 21:30 12/24/19 13:29 Docusate Sodium (Colace) 100 mg THREE TIMES A DAY ORAL 12/09/19 13:00 01/08/20 12:59 12/09/19 18:02 Folic Acid (Folate) 1 mg DAILY ORAL 12/10/19 09:00 12/27/19 08:59 Heparin Sodium (Porcine) (Heparin 5000 units/ml) 5,000 units EVERY 12 HOURS SUBQ 12/03/19 22:00 01/02/20 21:59 12/09/19 09:29 Hydralazine HCl (Apresoline) 25 mg Q4H PRN ORAL bp over 160 syst 12/09/19 10:45 01/08/20 10:44 Hydralazine HCl (Apresoline) 50 mg EVERY 8 HOURS ORAL 12/09/19 14:00 01/01/20 00:00 Insulin Aspart (NovoLOG) BEFORE MEALS AND HS SUBQ 12/03/19 21:14 01/02/20 21:13 12/06/19 17:14 Isosorbide Dinitrate (Isordil) 20 mg TID GT 12/04/19 09:00 01/01/20 08:59 12/09/19 18:02 Meropenem 500 mg/ Sodium Chloride 55 ml @ 110 mls/hr Q24H IVPB 12/04/19 12:00 12/11/19 23:59 12/09/19 11:48 Morphine Sulfate (Morphine Sulfate) 2 mg Q4H PRN IVP Severe Pain (Pain Scale 7-10) 12/03/19 21:17 12/10/19 21:16 12/08/19 10:52 Nitroglycerin (Ntg) 0.4 mg Q5M PRN SL Prn Chest Pain 12/03/19 21:17 01/02/20 21:16 Ondansetron HCl (Zofran) 4 mg Q6H PRN IVP Nausea & Vomiting 12/03/19 21:17 01/02/20 21:16 Pantoprazole (Protonix) 40 mg EVERY 12 HOURS ORAL 12/09/19 21:00 01/08/20 20:59 Polyethylene Glycol (Miralax) 17 gm DAILYPRN PRN NG Constipation 12/03/19 21:17 01/02/20 21:16 Promethazine HCl/ Codeine (Phenergan with Codeine) 5 ml Q4H PRN NG For Cough 12/03/19 21:17 01/02/20 21:16 Sevelamer Carbonate (Renvela) 2,400 mg THREE TIMES A DAY ORAL 12/09/19 13:00 01/07/20 12:59 12/09/19 18:02 Sodium Hypochlorite (Dakin's Quarter Strength) 1 applic DAILY TOPIC 12/08/19 09:00 01/07/20 08:59 12/09/19 09:28 Vancomycin HCl (Vanco rx to dose) 1 ea DAILY PRN MISC Per rx protocol 12/05/19 11:45 01/04/20 11:44 Allergies: Coded Allergies: No Known Allergies (Unverified , 11/24/19) ROS Limited/Unobtainable: No Constitutional: Reports: no symptoms HEENT: Reports: no symptoms Cardiovascular: Reports: no symptoms Respiratory: Reports: no symptoms Gastrointestinal/Abdominal: Reports: no symptoms Genitourinary: Reports: no symptoms Neurologic/Psychiatric: Reports: no symptoms Subjective 59 YO M admitted with respiratory failure. Cover for Int Med-Dr Ceja. JA Objective Last Vital Signs Date Time Temp Pulse Resp B/P (MAP) Pulse Ox O2 Delivery O2 Flow Rate FiO2 12/09/19 18:02 123/64 12/09/19 16:00 Nasal Cannula 2.0 Nasal Cannula 4.0 12/09/19 16:00 73 12/09/19 16:00 98.5 20 100 12/09/19 07:51 28 Laboratory Tests Test 12/09/19 04:00 White Blood Count 9.5 K/UL (4.8-10.8) Red Blood Count 2.96 M/UL (4.70-6.10) L Hemoglobin 8.4 G/DL (14.2-18.0) L Hematocrit 25.4 % (42.0-52.0) L Mean Corpuscular Volume 86 FL (80-99) Mean Corpuscular Hemoglobin 28.5 PG (27.0-31.0) Mean Corpuscular Hemoglobin Concent 33.2 G/DL (32.0-36.0) Red Cell Distribution Width 13.2 % (11.6-14.8) Platelet Count 296 K/UL (150-450) Mean Platelet Volume 6.2 FL (6.5-10.1) L Neutrophils (%) (Auto) 73.1 % (45.0-75.0) Lymphocytes (%) (Auto) 14.5 % (20.0-45.0) L Monocytes (%) (Auto) 9.0 % (1.0-10.0) Eosinophils (%) (Auto) 3.0 % (0.0-3.0) Basophils (%) (Auto) 0.4 % (0.0-2.0) Sodium Level 138 MMOL/L (136-145) Potassium Level 4.3 MMOL/L (3.5-5.1) Chloride Level 99 MMOL/L (98-107) Carbon Dioxide Level 24 MMOL/L (21-32) Anion Gap 15 mmol/L (5-15) Blood Urea Nitrogen 49 mg/dL (7-18) H Creatinine 6.1 MG/DL (0.55-1.30) H Estimat Glomerular Filtration Rate 11.5 mL/min (>60) Glucose Level 91 MG/DL (74-106) Uric Acid 5.4 MG/DL (2.6-7.2) Calcium Level 8.4 MG/DL (8.5-10.1) L Phosphorus Level 6.1 MG/DL (2.5-4.9) H Magnesium Level 2.0 MG/DL (1.8-2.4) Iron Level 37 ug/dL (50-175) L Total Iron Binding Capacity 173 ug/dL (250-450) L Percent Iron Saturation 21 % (15-50) Unsaturated Iron Binding 136 ug/dL (112-346) Ferritin 899 NG/ML (8-388) H Total Bilirubin 0.3 MG/DL (0.2-1.0) Aspartate Amino Transf (AST/SGOT) 33 U/L (15-37) Alanine Aminotransferase (ALT/SGPT) 30 U/L (12-78) Alkaline Phosphatase 136 U/L (46-116) H C-Reactive Protein, Quantitative 6.2 mg/dL (0.00-0.90) H Pro-B-Type Natriuretic Peptide 68809 pg/mL (0-125) H Total Protein 6.8 G/DL (6.4-8.2) Albumin 1.9 G/DL (3.4-5.0) L Globulin 4.9 g/dL Albumin/Globulin Ratio 0.4 (1.0-2.7) L Random Vancomycin Level 20.0 ug/mL Intake and Output 12/08/19 12/09/19 19:00 07:00 Intake Total 2495 ml 750 ml Output Total 2175 ml Balance 320 ml 750 ml Intake Oral 440 ml 500 ml IV Total 55 ml Blood Product 250 ml Hemodialysis 2000 ml Output Urine Total 175 ml Hemodialysis UF 2000 ml # Voids 1 Objective PHYSICAL EXAMINATION: GENERAL: The patient is a well-developed and well-nourished male, in moderate respiratory distress. HEENT: Eyes, pupils are equal and responsive to light and accommodation. Extraocular movements are intact. NECK: Supple without lymphadenopathy. CHEST: nasal canula; Mechanical breath sounds, otherwise without wheezes or rales. CARDIOVASCULAR: Regular rate. S1 and S2 normal without murmurs, rubs, or gallops. ABDOMEN: Soft, nontender, and nondistended. Positive bowel sounds. No evidence of hepatosplenomegaly. Currently, no rebound or guarding noted. EXTREMITIES: Negative for clubbing, cyanosis, or edema. RECTAL/GENITAL: Refused. NEUROLOGIC: Cranial nerves II through XII are grossly intact without focal deficits. Assessment/Plan Assessment/Plan ASSESSMENT: This is a 59-year-old male. 1. Respiratory failure. 2. Pneumonia. 3. Probable sepsis. 4. Diabetes type 2. 5. Hypertension. 6. Hypercholesterolemia. TREATMENT: 1. Respiratory failure/pneumonia. The patient is currently tolerating nasal canula in JA. A Pulmonary consultation has been obtained with Dr. Brandy Milton. Sputum=ESBL E. Coli. ABX=meropenem and vanco. ID=Dr Souza Continue Tamiflu per ID=Dr Andrade. We will follow recommendations of Pulmonary. 2. Sepsis. Blood cultures=Staph Hominis. ABX=meropenem and vanco 3. Diabetes type 2. A NovoLog sliding scale has been instituted. 4. Hypertension. The patient is currently hypotensive. Hold antihypertensive medication. 5. Hypercholesterolemia. Continue atorvastatin as above. Sidney Galaviz MD Dec 09, 2019 19:31
--- NOTE | 2019-12-09 19:39 | NUR ---
NURSE NOTES: Received pt from Luisito Caraballo RN. pt is observed resting in bed, eyes open, AO X4, denies pain at this time. pt is on 2 L O2 via NC, tolerating well. no s/sx of respiratory distress noted. auto suspension and steering mechanic shows SR with current HR of 76, no s/sx of acute cardiac distress noted. skin alterations noted. LW and RH 20 g IV sites are patent and intact, asymptomatic. Right subclavian Chris catheter noted; dressing dry and intact. bed in lowest position and locked, siderails up X3, call light within reach. will continue to monitor.
[2019-12-09 20:00] VITALS: BP 125/55
[2019-12-09] MEDS ORDERED: Varibar Nectar 240ml MC PRN ×2 (20:00→21:00)
[2019-12-09] MEDS ORDERED: Acetaminophen 650mg/20.3ml NG PRN (20:22)
[2019-12-09] MEDS ORDERED: Nitroglycerin Subl 0.4mg tab SL PRN ×2 (20:24→20:30)
[2019-12-09] MEDS ORDERED: Promethazine/Codeine 5ml UD NG PRN ×2 (20:25→20:34)
[2019-12-09] MEDS ORDERED: Morphine Sulfate 2mg/ml Inj(IV/IM USE ONLY) IVP PRN ×2 (20:25→20:34)
[2019-12-09] MEDS ORDERED: Miralax 17gm pkt NG PRN ×2 (20:25→20:34)
--- NOTE | 2019-12-09 20:30 | NUR ---
TRANSFER TO FLOOR: Patient transferred to room 418-1, per MD order. pt transferred via hospital bed and with 2 L O2 via NC with O2 tank. Report given to YUKI Bolden. Belongings reviewed with receiving RN and remain at pt's bedside. Medications given to receiving RN. pt is in stable condition. Family and or S/O informed of transfer.
[2019-12-09] MEDS ORDERED: NovoLOG Insulin Flexpen SUBQ SCH (21:00)
[2019-12-09] MEDS ORDERED: Heparin 5000 units/ml inj SUBQ SCH (21:00)
[2019-12-09] MEDS ORDERED: Carvedilol 12.5mg tab NG SCH (21:00)
--- NOTE | 2019-12-09 21:00 | NUR ---
NURSE NOTES: Received report from Elisa Zendejas. Patient is awake, alert and verbally responsive. On special mattress, noted with sacral dressing, pictures taken. IV site noted. Skin is warm and dry to touch. Abdomen is soft and non distended. REspiration is even and unlabored. Bed in low and locked position. all belongings noted. Call light is at bedside. Oriented patient to the room. Will continue plan of care.
[2019-12-09] MEDS: HydrALAZINE 50mg tab ORAL SCH (21:18)
[2019-12-10] VITALS: BP 111/58
[2019-12-10] MEDS ORDERED: Varibar Thin Liquid powder 148gm MC PRN
[2019-12-10 04:00] VITALS: BP 115/57
[2019-12-10] MEDS: NovoLOG Insulin Flexpen SUBQ SCH ×4 (06:01→21:00)
[2019-12-10] MEDS: HydrALAZINE 50mg tab ORAL SCH ×3 (06:07→21:50)
--- NOTE | 2019-12-10 07:14 | NUR ---
HAND-OFF: Report given to Elisa Gu.
[2019-12-10 08:00] VITALS: BP 115/59
--- NOTE | 2019-12-10 08:13 | NUR ---
NURSE NOTES: patient is in the bed alert and awake. respiration is even and unlabored on 02 @2l/min via NC. HOB elevated. skin is warm and dry to touch. no fever and chills noted. no episodes of coughing noted on resident at this time. Patient verbalized pain to his right buttock due to pressure injury, will administer pain medication as prescribed. right hand and left wrist 20 g IV site is in-place, and patent. no redness, swelling and warmth noted around site. placed call light within reach, will continue to follow plan of care.
[2019-12-10] MEDS ORDERED: Dakin's 0.125% Soln (Quarter Strength) 16oz TOPIC SCH (09:00)
[2019-12-10] MEDS ORDERED: Docusate 100mg cap ORAL SCH (09:00)
[2019-12-10] MEDS: Carvedilol 12.5mg tab NG SCH ×2 (09:00→20:36)
[2019-12-10] MEDS: Docusate 100mg cap ORAL SCH ×3 (09:01→18:05)
[2019-12-10] MEDS: Heparin 5000 units/ml inj SUBQ SCH ×2 (09:05→20:43)
[2019-12-10] MEDS: Dakin's 0.125% Soln (Quarter Strength) 16oz TOPIC SCH (09:06)
[2019-12-10 09:58] LABS: HEMATOCRIT 23.3 % (42.0-52.0); HEMOGLOBIN 7.7 G/DL (14.2-18.0); MEAN CORPUSCULAR VOLUME 86 FL (80-99); PLATELET COUNT 333 K/UL (150-450); RED BLOOD COUNT 2.73 M/UL (4.70-6.10); RED CELL DISTRIBUTION WIDTH 12.8 % (11.6-14.8); WHITE BLOOD COUNT 7.9 K/UL (4.8-10.8)
[2019-12-10 10:06] LABS: ANION GAP 10 mmol/L (5-15); BLOOD UREA NITROGEN 66 mg/dL (7-18); CALCIUM 8.6 MG/DL (8.5-10.1); CARBON DIOXIDE 29 MMOL/L (21-32); CHLORIDE 96 MMOL/L (98-107); CREATININE 7.8 MG/DL (0.55-1.30); POTASSIUM 4.5 MMOL/L (3.5-5.1); SODIUM 135 MMOL/L (136-145)
--- NOTE | 2019-12-10 10:13 | Nephrology Progress Note ---
Assessment/Plan Problem List: (1) ARF (acute renal failure) (2) Acute respiratory failure (3) Septic shock (4) Anemia (5) History of hypertension (6) Diabetes mellitus (7) Acute on chronic systolic heart failure Assessment: ej Fx 40 Assessment Acute renal failure- ? Underlying CKD Respiratory failure Anemia Sepsis / Shock ? Pneumonia DM HTN by history Gout left BKA Cardiomyopathy - Ej Fx 40% Plan Plan: Has permacath- dialysed 12/08 next DC quiñones ? 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 DC IV previously DC Hydrocortisone Antibiotics urine studies avoid nephrotoxics monitor renal parameters Anemia hairston per orders Subjective ROS Limited/Unobtainable: No Constitutional: Reports: other - feel better Objective Objective Last 24 Hour Vital Signs Date Time Temp Pulse Resp B/P (MAP) Pulse Ox O2 Delivery O2 Flow Rate FiO2 12/10/19 09:00 115/59 12/10/19 09:00 76 115/59 12/10/19 08:00 97.6 76 17 115/59 (77) 98 12/10/19 06:07 115/57 12/10/19 04:00 99.0 78 18 115/57 (76) 97 12/10/19 00:00 97.9 89 18 111/58 (75) 96 12/09/19 21:18 125/55 12/09/19 21:18 73 125/55 12/09/19 21:02 74 18 98 Nasal Cannula 2.0 28 12/09/19 21:02 97 Nasal Cannula 2.0 28 12/09/19 21:00 Nasal Cannula 2.0 Nasal Cannula 2.0 12/09/19 20:00 97.3 73 18 125/55 (78) 98 12/09/19 18:02 123/64 12/09/19 16:00 Nasal Cannula 2.0 Nasal Cannula 4.0 12/09/19 16:00 73 12/09/19 16:00 98.5 85 20 115/59 (77) 100 12/09/19 13:30 104/55 12/09/19 12:49 104/55 12/09/19 12:00 96.1 76 20 104/55 (71) 100 12/09/19 12:00 77 12/09/19 12:00 Nasal Cannula 2.0 Nasal Cannula 4.0 Intake and Output 12/09/19 12/10/19 19:00 07:00 Intake Total 500 ml 400 ml Balance 500 ml 400 ml Intake Oral 500 ml Other 400 ml # Voids 1 1 Laboratory Tests 12/10/19 08:45: White Blood Count 7.9, Red Blood Count 2.73L, Hemoglobin 7.7L, Hematocrit 23.3L , Mean Corpuscular Volume 86, Mean Corpuscular Hemoglobin 28.4, Mean Corpuscular Hemoglobin Concent 33.2, Red Cell Distribution Width 12.8, Platelet Count 333, Mean Platelet Volume 5.4L, Neutrophils (%) (Auto) , Lymphocytes (%) ( Auto) , Monocytes (%) (Auto) , Eosinophils (%) (Auto) , Basophils (%) (Auto) , Neutrophils % (Manual) [Pending], Lymphocytes % (Manual) [Pending], Platelet Estimate [Pending], Platelet Morphology [Pending], Sodium Level 135L, Potassium Level 4.5, Chloride Level 96L, Carbon Dioxide Level 29, Anion Gap 10, Blood Urea Nitrogen 66H, Creatinine 7.8H, Estimat Glomerular Filtration Rate 8.7, Glucose Level 111H, Calcium Level 8.6 Height (Feet): 5 Height (Inches): 8.00 Weight (Pounds): 231 General Appearance: no apparent distress Cardiovascular: normal rate Respiratory/Chest: decreased breath sounds Abdomen: soft Objective no change Tej Sidhu MD Dec 10, 2019 10:13
[2019-12-10 10:47] LABS: ALANINE AMINOTRANSFERASE 29 U/L (12-78); ALBUMIN 2.1 G/DL (3.4-5.0); ALKALINE PHOSPHATASE 122 U/L (46-116); ASPARTATE AMINO TRANSFERASE 28 U/L (15-37); BILIRUBIN,DIRECT 0.1 MG/DL (0.0-0.3); BILIRUBIN,TOTAL 0.3 MG/DL (0.2-1.0)
[2019-12-10 12:00] VITALS: BP 117/53
[2019-12-10] MEDS ORDERED: Meropenem 500 MG in NS 55 ML IVPB SCH (12:00)
--- NOTE | 2019-12-10 12:24 | NUR ---
NURSE NOTES: Relayed hemoglobin level 7.[address] Johnson, recommended blood transfusion, said no.
[2019-12-10] MEDS ORDERED: Tubing Blood Filter IV ONE (12:25)
[2019-12-10] MEDS ORDERED: NS 275ml ONE (12:25)
--- NOTE | 2019-12-10 13:56 | Infectious Diseases Prog Note ---
Assessment/Plan Assessment/Plan Assessment: Septic Shock- SP Pneumonia -12/01 CXR: probably unchanged bilateral diffuse interstitial and airspace disease. -11/30 sp cx:Interim marked worsening of bilateral pulmonary parenchymal disease, over one day -11/29 sp cx ESBL E.coli (S zosyn, Imipenem, bactrim) -11/24 u/a neg; ucx neg Bcx NTD influenza sc neg CXR: Bilateral dense consolidation, likely pneumonia. Pulmonary edema also possible. Correlate with clinical findings sp cx ordered,not done legionella ag urine neg S. hominis bacteremia- RIJ infection vs contamination - SP Perm Cath insertion 12/08 - HD Cath removed on 12/06 - RIJ removed on 12/02 -11/27 Bcx 1/4 S. hominis; 11/29 Bcx 1/2 S. hominis (RIJ), NTD x2 (peripheral) Low grade fever , Sp Leukocytosis, improving ARDS Acute respiratory failure s/p intubation 11/24, sp extubation 11/29, now on bipap GANGA on CKD; now on HD 11/27 Elevated LFTs;improving Troponinemia Dm2 Gout s/p L BKA allergic rhinitis CAD s/p stent prosthetic AVR hx of esophagitis PVD chronic sCHF HLD HTN SNF resident Plan: - cont IV Vanco # 6/10 -Continue empiric Meropenem # 10/10 for ESBL E.coli PNA -12/01 SP IV Vancomycin #8, Tamiflu #7 -11/30 SP LEvaquin #7, Cefepime #7 -Monitor CBC/CMP, temperatures -aspiration precautions - Bcx x2 Thank you for this consultation. Will continue to follow along with you. Subjective Allergies: Coded Allergies: No Known Allergies (Unverified , 11/24/19) Subjective afebrile at 2l NC Objective Vital Signs Last 24 Hour Vital Signs Date Time Temp Pulse Resp B/P (MAP) Pulse Ox O2 Delivery O2 Flow Rate FiO2 12/10/19 12:00 97.7 73 17 117/53 (74) 98 12/10/19 09:00 115/59 12/10/19 09:00 76 115/59 12/10/19 09:00 Nasal Cannula 2.0 Nasal Cannula 2.0 Nasal Cannula 2.0 12/10/19 08:00 97.6 76 17 115/59 (77) 98 12/10/19 06:07 115/57 2/29/20 04:00 99.0 78 18 115/57 (76) 97 12/10/19 00:00 97.9 89 18 111/58 (75) 96 12/09/19 21:18 125/55 12/09/19 21:18 73 125/55 12/09/19 21:02 74 18 98 Nasal Cannula 2.0 28 12/09/19 21:02 97 Nasal Cannula 2.0 28 12/09/19 21:00 Nasal Cannula 2.0 Nasal Cannula 2.0 12/09/19 20:00 97.3 73 18 125/55 (78) 98 12/09/19 18:02 123/64 12/09/19 16:00 Nasal Cannula 2.0 Nasal Cannula 4.0 12/09/19 16:00 73 12/09/19 16:00 98.5 85 20 115/59 (77) 100 Height (Feet): 5 Height (Inches): 8.00 Weight (Pounds): 231 Objective GENERAL: not in distress HEENT: Eyes, pupils are equal and responsive to light and accommodation. Extraocular movements are intact. NECK: Supple CHEST: no wheezes or rales. CARDIOVASCULAR: Regular rate. S1 and S2 normal without murmurs, rubs, or gallops. ABDOMEN: Soft, nontender, and nondistended. Positive bowel sounds. No evidence of hepatosplenomegaly. Currently, no rebound or guarding noted. EXTREMITIES: Negative for clubbing, cyanosis, or edema. Laboratory Tests Test 12/10/19 08:45 White Blood Count 7.9 K/UL (4.8-10.8) Red Blood Count 2.73 M/UL (4.70-6.10) L Hemoglobin 7.7 G/DL (14.2-18.0) L Hematocrit 23.3 % (42.0-52.0) L Mean Corpuscular Volume 86 FL (80-99) Mean Corpuscular Hemoglobin 28.4 PG (27.0-31.0) Mean Corpuscular Hemoglobin Concent 33.2 G/DL (32.0-36.0) Red Cell Distribution Width 12.8 % (11.6-14.8) Platelet Count 333 K/UL (150-450) Mean Platelet Volume 5.4 FL (6.5-10.1) L Neutrophils (%) (Auto) % (45.0-75.0) Lymphocytes (%) (Auto) % (20.0-45.0) Monocytes (%) (Auto) % (1.0-10.0) Eosinophils (%) (Auto) % (0.0-3.0) Basophils (%) (Auto) % (0.0-2.0) Differential Total Cells Counted 100 Neutrophils % (Manual) 66 % (45-75) Lymphocytes % (Manual) 20 % (20-45) Monocytes % (Manual) 10 % (1-10) Eosinophils % (Manual) 3 % (0-3) Basophils % (Manual) 1 % (0-2) Band Neutrophils 0 % (0-8) Platelet Estimate Adequate Platelet Morphology Normal Hypochromasia 3+ Anisocytosis 1+ Sodium Level 135 MMOL/L (136-145) L Potassium Level 4.5 MMOL/L (3.5-5.1) Chloride Level 96 MMOL/L (98-107) L Carbon Dioxide Level 29 MMOL/L (21-32) Anion Gap 10 mmol/L (5-15) Blood Urea Nitrogen 66 mg/dL (7-18) H Creatinine 7.8 MG/DL (0.55-1.30) H Estimat Glomerular Filtration Rate 8.7 mL/min (>60) Glucose Level 111 MG/DL (74-106) H Hemoglobin A1c 7.0 % (4.3-6.0) H Calcium Level 8.6 MG/DL (8.5-10.1) Phosphorus Level 7.0 MG/DL (2.5-4.9) H Magnesium Level 2.2 MG/DL (1.8-2.4) Total Bilirubin 0.3 MG/DL (0.2-1.0) Direct Bilirubin 0.1 MG/DL (0.0-0.3) Aspartate Amino Transf (AST/SGOT) 28 U/L (15-37) Alanine Aminotransferase (ALT/SGPT) 29 U/L (12-78) Alkaline Phosphatase 122 U/L (46-116) H Total Protein 6.1 G/DL (6.4-8.2) L Albumin 2.1 G/DL (3.4-5.0) L Folate 83.8 NG/ML (8.6-58.9) H Current Medications Medications (Trade) Dose Ordered Sig/Valeriano Route PRN Reason Start Time Stop Time Status Last Admin Dose Admin Acetaminophen (Tylenol) 650 mg Q4H PRN NG Mild Pain/Temp > 100.5 12/09/19 20:33 01/02/20 20:32 Carvedilol (Coreg) 12.5 mg EVERY 12 HOURS NG 12/09/19 21:00 01/02/20 21:59 12/09/19 21:18 Chlorhexidine Gluconate (Katia-Hex 2%) 1 applic DAILY@2000 TOPIC 12/10/19 20:00 12/25/19 19:59 Dextrose (Dextrose 50%) 25 ml Q30M PRN IV Hypoglycemia 12/09/19 20:33 12/24/19 20:32 Dextrose (Dextrose 50%) 50 ml Q30M PRN IV Hypoglycemia 12/09/19 20:33 12/24/19 20:32 Docusate Sodium (Colace) 100 mg THREE TIMES A DAY ORAL 12/10/19 09:00 01/08/20 12:59 12/10/19 09:01 Epoetin Ricky (Procrit (for ESRD on dialysis)) 10,000 units MON-WED-FRI SUBQ 12/12/19 21:00 01/11/20 20:59 Folic Acid (Folate) 1 mg DAILY ORAL 12/10/19 09:00 12/27/19 08:59 12/10/19 09:01 Heparin Sodium (Porcine) (Heparin 5000 units/ml) 5,000 units EVERY 12 HOURS SUBQ 12/09/19 21:00 01/02/20 21:59 12/10/19 09:05 Hydralazine HCl (Apresoline) 25 mg Q4H PRN ORAL bp over 160 syst 12/09/19 20:37 01/08/20 20:36 Hydralazine HCl (Apresoline) 50 mg EVERY 8 HOURS ORAL 12/09/19 22:00 01/01/20 00:00 12/10/19 06:07 Insulin Aspart (NovoLOG) BEFORE MEALS AND HS SUBQ 12/09/19 21:00 01/02/20 21:13 Iron Sucrose 100 mg/Sodium Chloride 55 ml @ 200 mls/hr BEDTIME IV 12/10/19 21:00 12/19/19 21:17 Isosorbide Dinitrate (Isordil) 20 mg TID GT 12/10/19 09:00 01/01/20 08:59 Meropenem 500 mg/ Sodium Chloride 55 ml @ 110 mls/hr Q24H IVPB 12/10/19 12:00 12/11/19 23:59 Morphine Sulfate (Morphine Sulfate) 2 mg Q4H PRN IVP Severe Pain (Pain Scale 7-10) 12/09/19 20:34 12/10/19 20:33 Nitroglycerin (Ntg) 0.4 mg Q5M PRN SL Prn Chest Pain 12/09/19 20:30 01/02/20 21:16 Ondansetron HCl (Zofran) 4 mg Q6H PRN IVP Nausea & Vomiting 12/09/19 20:34 01/02/20 20:33 Pantoprazole (Protonix) 40 mg EVERY 12 HOURS ORAL 12/09/19 21:00 01/08/20 20:59 12/10/19 09:01 Polyethylene Glycol (Miralax) 17 gm DAILYPRN PRN NG Constipation 12/09/19 20:34 01/02/20 20:33 Promethazine HCl/ Codeine (Phenergan with Codeine) 5 ml Q4H PRN NG For Cough 12/09/19 20:34 01/02/20 20:33 Sevelamer Carbonate (Renvela) 2,400 mg THREE TIMES A DAY ORAL 12/10/19 09:00 01/07/20 12:59 12/10/19 09:01 Sodium Hypochlorite (Dakin's Quarter Strength) 1 applic DAILY TOPIC 12/10/19 09:00 01/07/20 08:59 12/10/19 09:06 Vancomycin HCl (Vanco rx to dose) 1 ea DAILY PRN MISC Per rx protocol 12/09/19 20:24 01/08/20 20:23 Vancomycin HCl (Vanco rx to dose) 1 ea DAILY PRN MISC Per rx protocol 12/09/19 20:34 01/08/20 20:33 Yojana Bennett M.D. Dec 10, 2019 13:56
--- NOTE | 2019-12-10 14:03 | Surgery Progress Note ---
Surgery Progress Note Subjective Procedure Performed Right femoral temporary hemodialysis catheter removal Symptoms: improved, tolerating diet, passing flatus, BM Objective Last 24 Hour Vital Signs Date Time Temp Pulse Resp B/P (MAP) Pulse Ox O2 Delivery O2 Flow Rate FiO2 12/10/19 12:00 97.7 73 17 117/53 (74) 98 12/10/19 09:00 115/59 12/10/19 09:00 76 115/59 12/10/19 09:00 Nasal Cannula 2.0 Nasal Cannula 2.0 Nasal Cannula 2.0 12/10/19 08:00 97.6 76 17 115/59 (77) 98 12/10/19 06:07 115/57 12/10/19 04:00 99.0 78 18 115/57 (76) 97 12/10/19 00:00 97.9 89 18 111/58 (75) 96 12/09/19 21:18 125/55 12/09/19 21:18 73 125/55 12/09/19 21:02 74 18 98 Nasal Cannula 2.0 28 12/09/19 21:02 97 Nasal Cannula 2.0 28 12/09/19 21:00 Nasal Cannula 2.0 Nasal Cannula 2.0 12/09/19 20:00 97.3 73 18 125/55 (78) 98 12/09/19 18:02 123/64 12/09/19 16:00 Nasal Cannula 2.0 Nasal Cannula 4.0 12/09/19 16:00 73 12/09/19 16:00 98.5 85 20 115/59 (77) 100 I&O Intake and Output 12/09/19 12/10/19 19:00 07:00 Intake Total 500 ml 400 ml Balance 500 ml 400 ml Intake Oral 500 ml Other 400 ml # Voids 1 1 Dressing: dry Wound: dry Cardiovascular: RSR Respiratory: clear Abdomen: soft, non-tender, tenderness, present bowel sounds Extremities: no tenderness, no cyanosis, other Laboratory Tests Test 12/10/19 08:45 White Blood Count 7.9 K/UL (4.8-10.8) Red Blood Count 2.73 M/UL (4.70-6.10) L Hemoglobin 7.7 G/DL (14.2-18.0) L Hematocrit 23.3 % (42.0-52.0) L Mean Corpuscular Volume 86 FL (80-99) Mean Corpuscular Hemoglobin 28.4 PG (27.0-31.0) Mean Corpuscular Hemoglobin Concent 33.2 G/DL (32.0-36.0) Red Cell Distribution Width 12.8 % (11.6-14.8) Platelet Count 333 K/UL (150-450) Mean Platelet Volume 5.4 FL (6.5-10.1) L Neutrophils (%) (Auto) % (45.0-75.0) Lymphocytes (%) (Auto) % (20.0-45.0) Monocytes (%) (Auto) % (1.0-10.0) Eosinophils (%) (Auto) % (0.0-3.0) Basophils (%) (Auto) % (0.0-2.0) Differential Total Cells Counted 100 Neutrophils % (Manual) 66 % (45-75) Lymphocytes % (Manual) 20 % (20-45) Monocytes % (Manual) 10 % (1-10) Eosinophils % (Manual) 3 % (0-3) Basophils % (Manual) 1 % (0-2) Band Neutrophils 0 % (0-8) Platelet Estimate Adequate Platelet Morphology Normal Hypochromasia 3+ Anisocytosis 1+ Sodium Level 135 MMOL/L (136-145) L Potassium Level 4.5 MMOL/L (3.5-5.1) Chloride Level 96 MMOL/L (98-107) L Carbon Dioxide Level 29 MMOL/L (21-32) Anion Gap 10 mmol/L (5-15) Blood Urea Nitrogen 66 mg/dL (7-18) H Creatinine 7.8 MG/DL (0.55-1.30) H Estimat Glomerular Filtration Rate 8.7 mL/min (>60) Glucose Level 111 MG/DL (74-106) H Hemoglobin A1c 7.0 % (4.3-6.0) H Calcium Level 8.6 MG/DL (8.5-10.1) Phosphorus Level 7.0 MG/DL (2.5-4.9) H Magnesium Level 2.2 MG/DL (1.8-2.4) Total Bilirubin 0.3 MG/DL (0.2-1.0) Direct Bilirubin 0.1 MG/DL (0.0-0.3) Aspartate Amino Transf (AST/SGOT) 28 U/L (15-37) Alanine Aminotransferase (ALT/SGPT) 29 U/L (12-78) Alkaline Phosphatase 122 U/L (46-116) H Total Protein 6.1 G/DL (6.4-8.2) L Albumin 2.1 G/DL (3.4-5.0) L Folate 83.8 NG/ML (8.6-58.9) H Plan Problems: (1) Septic shock Assessment & Plan: Patient in septic shock prior central line and pressors intubated on vent support in the intensive care unit tachycardic. Renal insufficiency requiring hemodialysis. Temporary hemodialysis catheter indicated and recommended Please see procedure note Dialysis as per nephrology IV antibiotics post per infectious disease Dressing changes as per protocol We will monitor site for hematoma or infection No further acute surgical intervention recommended at this time will follow with recommendations thank you for let me participate patient's care extubated improved downgraded discussed care plan with family consent obtained plan to change to tunneled cath thursday (2) Acute respiratory failure Assessment & Plan: DAILY ESTIMATED NEEDS: Needs based on Critical care, sepsis 75kg adj 22-28 kcals/kg [id number] total kcals 1.2-2 g protein/kg 90-150 g total protein 25-30 mL/kg 8063-9476 total fluid mLs NUTRITION DIAGNOSIS: Swallowing difficulty r/t resp status as evidenced by septic shock now s/p intubation, w/ NGT, NPO at this time. ENTERAL NUTRITION RECOMMENDATIONS: Nepro @40ml/hr x24 hrs + Prosource BID to provide 960ml, 78g + 22 g pro, 698ml free H2O - As medically appropriate, rec non oral feeds via NGT - Start Nepro @20ml/hr for 6 hrs. Advance as tolerated 10ml/hr q4-6 hrs to goal. - Add Prosource BID to better meet est pro needs - Flush per MD. 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 We turned him to the right lateral decubitus and evaluated the wound. Fortunately what was considered to be a stage IV wound is actually not and a significant amount of the necrotic tissues actually buildup of hair and dried skin protectant. A fair amount of time was spent doing non-excisional debridement with gauze and moist saline until the area was fully cleaned. Identified was a stage II skin breakdown mainly epidermis that looked like necrotic eschar but fortunately was just epidermis and underlying healthy viable dermis with back bleeding. Wound was cleansed and total edges were identified and intact minimal tenderness on palpation good blanching tissue noted surrounding it. Thera honey placed followed by gauze dressing and foam dressing. Discussed care plan with patient. He is very compliant with turning and states he will remain off his mind will stay off his sacrum as much as possible will follow with recommendations. For now Thera honey impregnated gauze and foam dressing. Turn every 2 hours. Nutritional optimization. Ranjit Ralph Dec 10, 2019 14:03
--- NOTE | 2019-12-10 14:29 | Internal Med Progress Note ---
Subjective Date of Service: Dec 10, 2019 Physician Name AnastaciaSidney Attending Physician Cezar Ceja MD Current Medications Medications (Trade) Dose Ordered Sig/Valeriano Route PRN Reason Start Time Stop Time Status Last Admin Dose Admin Acetaminophen (Tylenol) 650 mg Q4H PRN NG Mild Pain/Temp > 100.5 12/09/19 20:33 01/02/20 20:32 Carvedilol (Coreg) 12.5 mg EVERY 12 HOURS NG 12/09/19 21:00 01/02/20 21:59 12/09/19 21:18 Chlorhexidine Gluconate (Katia-Hex 2%) 1 applic DAILY@2000 TOPIC 12/10/19 20:00 12/25/19 19:59 Dextrose (Dextrose 50%) 25 ml Q30M PRN IV Hypoglycemia 12/09/19 20:33 12/24/19 20:32 Dextrose (Dextrose 50%) 50 ml Q30M PRN IV Hypoglycemia 12/09/19 20:33 12/24/19 20:32 Docusate Sodium (Colace) 100 mg THREE TIMES A DAY ORAL 12/10/19 09:00 01/08/20 12:59 12/10/19 09:01 Epoetin Ricky (Procrit (for ESRD on dialysis)) 10,000 units MON-WED-THU SUBQ 12/12/19 21:00 01/11/20 20:59 Folic Acid (Folate) 1 mg DAILY ORAL 12/10/19 09:00 12/27/19 08:59 12/10/19 09:01 Heparin Sodium (Porcine) (Heparin 5000 units/ml) 5,000 units EVERY 12 HOURS SUBQ 12/09/19 21:00 01/02/20 21:59 12/10/19 09:05 Hydralazine HCl (Apresoline) 25 mg Q4H PRN ORAL bp over 160 syst 12/09/19 20:37 01/08/20 20:36 Hydralazine HCl (Apresoline) 50 mg EVERY 8 HOURS ORAL 12/09/19 22:00 01/01/20 00:00 12/10/19 06:07 Insulin Aspart (NovoLOG) BEFORE MEALS AND HS SUBQ 12/09/19 21:00 01/02/20 21:13 Iron Sucrose 100 mg/Sodium Chloride 55 ml @ 200 mls/hr BEDTIME IV 12/10/19 21:00 12/19/19 21:17 Isosorbide Dinitrate (Isordil) 20 mg TID GT 12/10/19 09:00 01/01/20 08:59 Meropenem 500 mg/ Sodium Chloride 55 ml @ 110 mls/hr Q24H IVPB 12/10/19 12:00 12/11/19 23:59 Morphine Sulfate (Morphine Sulfate) 2 mg Q4H PRN IVP Severe Pain (Pain Scale 7-10) 12/09/19 20:34 12/10/19 20:33 Nitroglycerin (Ntg) 0.4 mg Q5M PRN SL Prn Chest Pain 12/09/19 20:30 01/02/20 21:16 Ondansetron HCl (Zofran) 4 mg Q6H PRN IVP Nausea & Vomiting 12/09/19 20:34 01/02/20 20:33 Pantoprazole (Protonix) 40 mg EVERY 12 HOURS ORAL 12/09/19 21:00 01/08/20 20:59 12/10/19 09:01 Polyethylene Glycol (Miralax) 17 gm DAILYPRN PRN NG Constipation 12/09/19 20:34 01/02/20 20:33 Promethazine HCl/ Codeine (Phenergan with Codeine) 5 ml Q4H PRN NG For Cough 12/09/19 20:34 01/02/20 20:33 Sevelamer Carbonate (Renvela) 2,400 mg THREE TIMES A DAY ORAL 12/10/19 09:00 01/07/20 12:59 12/10/19 09:01 Sodium Hypochlorite (Dakin's Quarter Strength) 1 applic DAILY TOPIC 12/10/19 09:00 01/07/20 08:59 12/10/19 09:06 Vancomycin HCl (Vanco rx to dose) 1 ea DAILY PRN MISC Per rx protocol 12/09/19 20:24 01/08/20 20:23 Vancomycin HCl (Vanco rx to dose) 1 ea DAILY PRN MISC Per rx protocol 12/09/19 20:34 01/08/20 20:33 Allergies: Coded Allergies: No Known Allergies (Unverified , 11/24/19) ROS Limited/Unobtainable: Yes Subjective 59 YO M admitted with respiratory failure. Cover for Int Med-Dr Marcial. Objective Last Vital Signs Date Time Temp Pulse Resp B/P (MAP) Pulse Ox O2 Delivery O2 Flow Rate FiO2 12/10/19 12:00 97.7 73 17 117/53 (74) 98 12/10/19 09:00 Nasal Cannula 2.0 Nasal Cannula 2.0 Nasal Cannula 2.0 12/09/19 21:02 28 Laboratory Tests Test 12/10/19 08:45 White Blood Count 7.9 K/UL (4.8-10.8) Red Blood Count 2.73 M/UL (4.70-6.10) L Hemoglobin 7.7 G/DL (14.2-18.0) L Hematocrit 23.3 % (42.0-52.0) L Mean Corpuscular Volume 86 FL (80-99) Mean Corpuscular Hemoglobin 28.4 PG (27.0-31.0) Mean Corpuscular Hemoglobin Concent 33.2 G/DL (32.0-36.0) Red Cell Distribution Width 12.8 % (11.6-14.8) Platelet Count 333 K/UL (150-450) Mean Platelet Volume 5.4 FL (6.5-10.1) L Neutrophils (%) (Auto) % (45.0-75.0) Lymphocytes (%) (Auto) % (20.0-45.0) Monocytes (%) (Auto) % (1.0-10.0) Eosinophils (%) (Auto) % (0.0-3.0) Basophils (%) (Auto) % (0.0-2.0) Differential Total Cells Counted 100 Neutrophils % (Manual) 66 % (45-75) Lymphocytes % (Manual) 20 % (20-45) Monocytes % (Manual) 10 % (1-10) Eosinophils % (Manual) 3 % (0-3) Basophils % (Manual) 1 % (0-2) Band Neutrophils 0 % (0-8) Platelet Estimate Adequate Platelet Morphology Normal Hypochromasia 3+ Anisocytosis 1+ Sodium Level 135 MMOL/L (136-145) L Potassium Level 4.5 MMOL/L (3.5-5.1) Chloride Level 96 MMOL/L (98-107) L Carbon Dioxide Level 29 MMOL/L (21-32) Anion Gap 10 mmol/L (5-15) Blood Urea Nitrogen 66 mg/dL (7-18) H Creatinine 7.8 MG/DL (0.55-1.30) H Estimat Glomerular Filtration Rate 8.7 mL/min (>60) Glucose Level 111 MG/DL (74-106) H Hemoglobin A1c 7.0 % (4.3-6.0) H Calcium Level 8.6 MG/DL (8.5-10.1) Phosphorus Level 7.0 MG/DL (2.5-4.9) H Magnesium Level 2.2 MG/DL (1.8-2.4) Total Bilirubin 0.3 MG/DL (0.2-1.0) Direct Bilirubin 0.1 MG/DL (0.0-0.3) Aspartate Amino Transf (AST/SGOT) 28 U/L (15-37) Alanine Aminotransferase (ALT/SGPT) 29 U/L (12-78) Alkaline Phosphatase 122 U/L (46-116) H Total Protein 6.1 G/DL (6.4-8.2) L Albumin 2.1 G/DL (3.4-5.0) L Folate 83.8 NG/ML (8.6-58.9) H Intake and Output 12/09/19 12/10/19 19:00 07:00 Intake Total 500 ml 400 ml Balance 500 ml 400 ml Intake Oral 500 ml Other 400 ml # Voids 1 1 Objective PHYSICAL EXAMINATION: GENERAL: The patient is a well-developed and well-nourished male, in moderate respiratory distress. HEENT: Eyes, pupils are equal and responsive to light and accommodation. Extraocular movements are intact. NECK: Supple without lymphadenopathy. CHEST: nasal canula; Mechanical breath sounds, otherwise without wheezes or rales. CARDIOVASCULAR: Regular rate. S1 and S2 normal without murmurs, rubs, or gallops. ABDOMEN: Soft, nontender, and nondistended. Positive bowel sounds. No evidence of hepatosplenomegaly. Currently, no rebound or guarding noted. EXTREMITIES: Negative for clubbing, cyanosis, or edema. RECTAL/GENITAL: Refused. NEUROLOGIC: Cranial nerves II through XII are grossly intact without focal deficits. Assessment/Plan Assessment/Plan ASSESSMENT: This is a 59-year-old male. 1. Respiratory failure. 2. Pneumonia=ESBL E. coli 3. Sepsis=staph hominis. 4. Diabetes type 2. 5. Hypertension. 6. Hypercholesterolemia. TREATMENT: 1. Respiratory failure/pneumonia. The patient is currently tolerating nasal canula in JA. A Pulmonary consultation has been obtained with Dr. Brandy Milton. Sputum=ESBL E. Coli. ABX=meropenem. ID=Dr Souza Continue Tamiflu per ID=Dr Andrade. We will follow recommendations of Pulmonary. 2. Sepsis. Blood cultures=Staph Hominis. ABX=meropenem and vanco 3. Diabetes type 2. A NovoLog sliding scale has been instituted. 4. Hypertension. The patient is currently hypotensive. Hold antihypertensive medication. 5. Hypercholesterolemia. Continue atorvastatin as above. Sidney Galaviz MD Dec 10, 2019 14:29
[2019-12-10] MEDS: Meropenem 500 MG in NS 55 ML IVPB SCH ×2 (14:33→14:39)
[2019-12-10 16:00] VITALS: BP 114/58
--- NOTE | 2019-12-10 18:50 | NUR ---
NURSE NOTES: dialysis is done. RN was endorsed from dialysis nurse that 2L was removed. Patient is stable.
--- NOTE | 2019-12-10 19:30 | NUR ---
NURSE NOTES: Receive a report from YUKI Cook. Round is done. Pt finished HD and had late dinner. Alert and orientation x4. No acute distress noted. NO dyspnea noted. On O2 2L NC. Sacrum wound dressing kept intact. Denies pain. Perma cath on RU chest site kept clean. Call light within reach. Will continue to monitor.
--- NOTE | 2019-12-10 19:34 | NUR ---
HAND-OFF: Report given to Oh.
[2019-12-10 20:00] VITALS: BP 141/62
[2019-12-10] MEDS ORDERED: Dyna-Hex 2% Top Sol 2oz TOPIC SCH (20:00)
[2019-12-10] MEDS: Dyna-Hex 2% Top Sol 2oz TOPIC SCH (20:44)
[2019-12-11] VITALS: BP 135/74
[2019-12-11] MEDS: Acetaminophen 650mg/20.3ml NG PRN (01:30)
--- NOTE | 2019-12-11 02:00 | NUR ---
NURSE NOTES: After Tylenol 650mg syrup for discomfort on perma cath insertion site, pt is asleep. Will continue to monitor.
[2019-12-11 04:00] VITALS: BP 119/60
--- NOTE | 2019-12-11 05:30 | NUR ---
NURSE NOTES: Pt says that he feels hot when he inhales and stuffy. Lung sound is clear and no wheezing. Spo2 100% with O2 2L NC. Request RT for humidifier. Keep head up elevated. Will continue to monitor.
[2019-12-11] MEDS: NovoLOG Insulin Flexpen SUBQ SCH ×4 (06:30→21:00)
[2019-12-11] MEDS: HydrALAZINE 50mg tab ORAL SCH ×3 (06:30→21:31)
--- NOTE | 2019-12-11 07:15 | NUR ---
HAND-OFF: Report given to YUKI Raines. Round is done.
[2019-12-11 07:22] LABS: HEMATOCRIT 23.9 % (42.0-52.0); HEMOGLOBIN 7.9 G/DL (14.2-18.0); MEAN CORPUSCULAR VOLUME 86 FL (80-99); PLATELET COUNT 352 K/UL (150-450); RED BLOOD COUNT 2.78 M/UL (4.70-6.10); RED CELL DISTRIBUTION WIDTH 13.4 % (11.6-14.8); WHITE BLOOD COUNT 8.6 K/UL (4.8-10.8)
--- NOTE | 2019-12-11 07:35 | NUR ---
NURSE NOTES: Received report from YUKI Corley. Patient awake, in bed eating breakfast. On nasal cannula. No signs of distress or labored breathing. IV intact, patent, and saline locked. PermCath on right upper chest, dry and intact. Bed in lowest position with call ligth in reach. Will continue with plan of care.
[2019-12-11 08:00] VITALS: BP 122/65
[2019-12-11 08:09] LABS: ALANINE AMINOTRANSFERASE 19 U/L (12-78); ALBUMIN 2.1 G/DL (3.4-5.0); ALBUMIN/GLOBULIN RATIO 0.4 (1.0-2.7); ALKALINE PHOSPHATASE 121 U/L (46-116); ANION GAP 10 mmol/L (5-15); ASPARTATE AMINO TRANSFERASE 27 U/L (15-37); BILIRUBIN,TOTAL 0.3 MG/DL (0.2-1.0); BLOOD UREA NITROGEN 51 mg/dL (7-18); CALCIUM 8.7 MG/DL (8.5-10.1); CARBON DIOXIDE 30 MMOL/L (21-32); CHLORIDE 95 MMOL/L (98-107); CREATININE 6.8 MG/DL (0.55-1.30); PHOSPHORUS 5.7 MG/DL (2.5-4.9); POTASSIUM 4.1 MMOL/L (3.5-5.1); SODIUM 135 MMOL/L (136-145)
[2019-12-11] MEDS: Docusate 100mg cap ORAL SCH ×3 (09:56→17:57)
[2019-12-11] MEDS: Carvedilol 12.5mg tab NG SCH ×2 (09:58→21:31)
[2019-12-11] MEDS: Heparin 5000 units/ml inj SUBQ SCH ×2 (10:00→21:42)
[2019-12-11] MEDS: Dakin's 0.125% Soln (Quarter Strength) 16oz TOPIC SCH (10:04)
[2019-12-11] MEDS ORDERED: Vancomycin 1gm/D5W 275ml IVPB ONE ×2 (11:00)
--- NOTE | 2019-12-11 11:30 | Nephrology Progress Note ---
Assessment/Plan Problem List: (1) ARF (acute renal failure) (2) Acute respiratory failure (3) Septic shock (4) Anemia (5) History of hypertension (6) Diabetes mellitus (7) Acute on chronic systolic heart failure Assessment: ej Fx 40 Assessment Acute renal failure- ? Underlying CKD Respiratory failure Anemia Sepsis / Shock ? Pneumonia DM HTN by history Gout left BKA Cardiomyopathy - Ej Fx 40% Plan Plan: Has permacath- dialysed 12/08 next next 12/11 DC quiñones ? Transfuse add phos binders was transfused previously on coreg hydralazine discussed with ICU special agent in charge DC IV previously DC Hydrocortisone Antibiotics urine studies avoid nephrotoxics monitor renal parameters Anemia hairston per orders Subjective ROS Limited/Unobtainable: No Objective Objective Last 24 Hour Vital Signs Date Time Temp Pulse Resp B/P (MAP) Pulse Ox O2 Delivery O2 Flow Rate FiO2 12/11/19 09:58 79 122/65 12/11/19 09:57 122/65 12/11/19 08:00 98.3 79 22 122/65 (84) 99 12/11/19 06:30 122/61 12/11/19 04:00 98.0 77 22 119/60 (79) 98 12/11/19 00:00 97.6 80 21 135/74 (94) 99 12/10/19 21:50 137/57 12/10/19 21:00 Nasal Cannula 2.0 Nasal Cannula 2.0 Nasal Cannula 2.0 12/10/19 20:36 82 141/62 12/10/19 20:04 97 Nasal Cannula 2.0 28 12/10/19 20:04 72 18 97 Nasal Cannula 2.0 28 12/10/19 20:00 97.8 82 22 141/62 (88) 98 12/10/19 18:00 114/58 12/10/19 16:00 97.0 81 18 114/58 (76) 99 12/10/19 14:00 117/53 12/10/19 13:00 117/53 12/10/19 12:00 97.7 73 17 117/53 (74) 98 Intake and Output 12/10/19 12/11/19 19:00 07:00 Intake Total 2055 ml 250 ml Balance 2055 ml 250 ml Intake Oral 250 ml IV Total 55 ml Hemodialysis 2000 ml Laboratory Tests 3/1/20 06:35: White Blood Count 8.6, Red Blood Count 2.78L, Hemoglobin 7.9L, Hematocrit 23.9L , Mean Corpuscular Volume 86, Mean Corpuscular Hemoglobin 28.4, Mean Corpuscular Hemoglobin Concent 32.9, Red Cell Distribution Width 13.4, Platelet Count 352, Mean Platelet Volume 5.4L, Neutrophils (%) (Auto) , Lymphocytes (%) ( Auto) , Monocytes (%) (Auto) , Eosinophils (%) (Auto) , Basophils (%) (Auto) , Differential Total Cells Counted 100, Neutrophils % (Manual) 67, Lymphocytes % ( Manual) 19L, Monocytes % (Manual) 10, Eosinophils % (Manual) 4H, Basophils % ( Manual) 0, Band Neutrophils 0, Platelet Estimate Adequate, Platelet Morphology Normal, Hypochromasia 3+, Anisocytosis 1+, Sodium Level 135L, Potassium Level 4.1, Chloride Level 95L, Carbon Dioxide Level 30, Anion Gap 10, Blood Urea Nitrogen 51H, Creatinine 6.8H, Estimat Glomerular Filtration Rate 10.2, Glucose Level 116H, Calcium Level 8.7, Phosphorus Level 5.7H, Total Bilirubin 0.3, Aspartate Amino Transf (AST/SGOT) 27, Alanine Aminotransferase (ALT/SGPT) 19, Alkaline Phosphatase 121H, C-Reactive Protein, Quantitative 4.9H, Pro-B-Type Natriuretic Peptide 26374V, Total Protein 7.0, Albumin 2.1L, Globulin 4.9, Albumin/Globulin Ratio 0.4L, Random Vancomycin Level 14.6 Height (Feet): 5 Height (Inches): 8.00 Weight (Pounds): 216 General Appearance: no apparent distress Cardiovascular: normal rate Respiratory/Chest: decreased breath sounds Abdomen: soft Objective no change Tej Sidhu MD Dec 11, 2019 11:30
[2019-12-11 12:00] VITALS: BP 121/63
--- NOTE | 2019-12-11 13:27 | Internal Med Progress Note ---
Subjective Date of Service: Dec 11, 2019 Physician Name AnastaciaSidney Attending Physician Cezar Ceja MD Current Medications Medications (Trade) Dose Ordered Sig/Valeriano Route PRN Reason Start Time Stop Time Status Last Admin Dose Admin Acetaminophen (Tylenol) 650 mg Q4H PRN NG Mild Pain/Temp > 100.5 12/09/19 20:33 01/02/20 20:32 12/11/19 01:30 Carvedilol (Coreg) 12.5 mg EVERY 12 HOURS NG 12/09/19 21:00 01/02/20 21:59 12/11/19 09:58 Chlorhexidine Gluconate (Katia-Hex 2%) 1 applic DAILY@1999 TOPIC 12/10/19 20:00 12/25/19 19:59 12/10/19 20:44 Dextrose (Dextrose 50%) 25 ml Q30M PRN IV Hypoglycemia 12/09/19 20:33 12/24/19 20:32 Dextrose (Dextrose 50%) 50 ml Q30M PRN IV Hypoglycemia 12/09/19 20:33 12/24/19 20:32 Docusate Sodium (Colace) 100 mg THREE TIMES A DAY ORAL 12/10/19 09:00 01/08/20 12:59 12/11/19 09:56 Epoetin Ricky (Procrit (for ESRD on dialysis)) 10,000 units THU-THU-THU SUBQ 12/12/19 21:00 01/11/20 20:59 Heparin Sodium (Porcine) (Heparin 5000 units/ml) 5,000 units EVERY 12 HOURS SUBQ 12/09/19 21:00 01/02/20 21:59 12/11/19 10:00 Hydralazine HCl (Apresoline) 25 mg Q4H PRN ORAL bp over 160 syst 12/09/19 20:37 01/08/20 20:36 Hydralazine HCl (Apresoline) 50 mg EVERY 8 HOURS ORAL 12/09/19 22:00 01/01/20 00:00 12/11/19 06:30 Insulin Aspart (NovoLOG) BEFORE MEALS AND HS SUBQ 12/09/19 21:00 01/02/20 21:13 Iron Sucrose 100 mg/Sodium Chloride 55 ml @ 200 mls/hr BEDTIME IV 12/10/19 21:00 12/19/19 21:17 12/10/19 20:37 Isosorbide Dinitrate (Isordil) 20 mg TID GT 12/10/19 09:00 01/01/20 08:59 12/11/19 09:57 Meropenem 500 mg/ Sodium Chloride 55 ml @ 110 mls/hr Q24H IVPB 12/10/19 12:00 12/11/19 23:59 12/10/19 14:39 Nitroglycerin (Ntg) 0.4 mg Q5M PRN SL Prn Chest Pain 12/09/19 20:30 01/02/20 21:16 Ondansetron HCl (Zofran) 4 mg Q6H PRN IVP Nausea & Vomiting 12/09/19 20:34 01/02/20 20:33 Pantoprazole (Protonix) 40 mg EVERY 12 HOURS ORAL 12/09/19 21:00 01/08/20 20:59 12/11/19 09:58 Polyethylene Glycol (Miralax) 17 gm DAILYPRN PRN NG Constipation 12/09/19 20:34 01/02/20 20:33 Promethazine HCl/ Codeine (Phenergan with Codeine) 5 ml Q4H PRN NG For Cough 12/09/19 20:34 01/02/20 20:33 Sevelamer Carbonate (Renvela) 2,400 mg THREE TIMES A DAY ORAL 12/10/19 09:00 01/07/20 12:59 12/11/19 09:57 Sodium Hypochlorite (Dakin's Quarter Strength) 1 applic DAILY TOPIC 12/10/19 09:00 01/07/20 08:59 12/11/19 10:04 Vancomycin HCl (Vanco rx to dose) 1 ea DAILY PRN MISC Per rx protocol 12/09/19 20:34 01/08/20 20:33 Allergies: Coded Allergies: No Known Allergies (Unverified , 11/24/19) ROS Limited/Unobtainable: No Constitutional: Reports: no symptoms HEENT: Reports: no symptoms Cardiovascular: Reports: no symptoms Respiratory: Reports: shortness of breath Gastrointestinal/Abdominal: Reports: no symptoms Genitourinary: Reports: no symptoms Neurologic/Psychiatric: Reports: no symptoms Subjective 59 YO M admitted with respiratory failure. Now pneumonia and sepsis. Cover for Int Med-Dr Marcial. Objective Last Vital Signs Date Time Temp Pulse Resp B/P (MAP) Pulse Ox O2 Delivery O2 Flow Rate FiO2 12/11/19 09:58 79 122/65 12/11/19 09:00 Nasal Cannula 2.0 Nasal Cannula 2.0 Nasal Cannula 2.0 12/11/19 08:00 98.3 22 99 12/10/19 20:04 28 Laboratory Tests Test 12/11/19 06:35 White Blood Count 8.6 K/UL (4.8-10.8) Red Blood Count 2.78 M/UL (4.70-6.10) L Hemoglobin 7.9 G/DL (14.2-18.0) L Hematocrit 23.9 % (42.0-52.0) L Mean Corpuscular Volume 86 FL (80-99) Mean Corpuscular Hemoglobin 28.4 PG (27.0-31.0) Mean Corpuscular Hemoglobin Concent 32.9 G/DL (32.0-36.0) Red Cell Distribution Width 13.4 % (11.6-14.8) Platelet Count 352 K/UL (150-450) Mean Platelet Volume 5.4 FL (6.5-10.1) L Neutrophils (%) (Auto) % (45.0-75.0) Lymphocytes (%) (Auto) % (20.0-45.0) Monocytes (%) (Auto) % (1.0-10.0) Eosinophils (%) (Auto) % (0.0-3.0) Basophils (%) (Auto) % (0.0-2.0) Differential Total Cells Counted 100 Neutrophils % (Manual) 67 % (45-75) Lymphocytes % (Manual) 19 % (20-45) L Monocytes % (Manual) 10 % (1-10) Eosinophils % (Manual) 4 % (0-3) H Basophils % (Manual) 0 % (0-2) Band Neutrophils 0 % (0-8) Platelet Estimate Adequate Platelet Morphology Normal Hypochromasia 3+ Anisocytosis 1+ Sodium Level 135 MMOL/L (136-145) L Potassium Level 4.1 MMOL/L (3.5-5.1) Chloride Level 95 MMOL/L (98-107) L Carbon Dioxide Level 30 MMOL/L (21-32) Anion Gap 10 mmol/L (5-15) Blood Urea Nitrogen 51 mg/dL (7-18) H Creatinine 6.8 MG/DL (0.55-1.30) H Estimat Glomerular Filtration Rate 10.2 mL/min (>60) Glucose Level 116 MG/DL (74-106) H Calcium Level 8.7 MG/DL (8.5-10.1) Phosphorus Level 5.7 MG/DL (2.5-4.9) H Total Bilirubin 0.3 MG/DL (0.2-1.0) Aspartate Amino Transf (AST/SGOT) 27 U/L (15-37) Alanine Aminotransferase (ALT/SGPT) 19 U/L (12-78) Alkaline Phosphatase 121 U/L (46-116) H C-Reactive Protein, Quantitative 4.9 mg/dL (0.00-0.90) H Pro-B-Type Natriuretic Peptide 99684 pg/mL (0-125) H Total Protein 7.0 G/DL (6.4-8.2) Albumin 2.1 G/DL (3.4-5.0) L Globulin 4.9 g/dL Albumin/Globulin Ratio 0.4 (1.0-2.7) L Random Vancomycin Level 14.6 ug/mL Intake and Output 12/10/19 12/11/19 19:00 07:00 Intake Total 2055 ml 250 ml Balance 2055 ml 250 ml Intake Oral 250 ml IV Total 55 ml Hemodialysis 2000 ml Objective PHYSICAL EXAMINATION: GENERAL: The patient is a well-developed and well-nourished male, in moderate respiratory distress. HEENT: Eyes, pupils are equal and responsive to light and accommodation. Extraocular movements are intact. NECK: Supple without lymphadenopathy. CHEST: nasal canula; Mechanical breath sounds, otherwise without wheezes or rales. CARDIOVASCULAR: Regular rate. S1 and S2 normal without murmurs, rubs, or gallops. ABDOMEN: Soft, nontender, and nondistended. Positive bowel sounds. No evidence of hepatosplenomegaly. Currently, no rebound or guarding noted. EXTREMITIES: Negative for clubbing, cyanosis, or edema. RECTAL/GENITAL: Refused. NEUROLOGIC: Cranial nerves II through XII are grossly intact without focal deficits. Assessment/Plan Assessment/Plan ASSESSMENT: This is a 59-year-old male. 1. Respiratory failure. 2. Pneumonia=ESBL E. coli 3. Sepsis=staph hominis. 4. Diabetes type 2. 5. Hypertension. 6. Hypercholesterolemia. TREATMENT: 1. Respiratory failure/pneumonia. The patient is currently tolerating nasal canula in JA. A Pulmonary consultation has been obtained with Dr. Brandy Milton. Sputum=ESBL E. Coli. ABX=S/P meropenem; continue vanco. ID=Dr Souza Continue Tamiflu per ID=Dr Andrade. We will follow recommendations of Pulmonary. 2. Sepsis. Blood cultures=Staph Hominis. ABX=vanco 3. Diabetes type 2. A NovoLog sliding scale has been instituted. 4. Hypertension. The patient is currently hypotensive. Hold antihypertensive medication. 5. Hypercholesterolemia. Continue atorvastatin as above. Sidney Galaviz MD Dec 11, 2019 13:27
[2019-12-11] MEDS: Meropenem 500 MG in NS 55 ML IVPB SCH (13:38)
[2019-12-11 16:00] VITALS: BP 130/68
[2019-12-11] MEDS ORDERED: Tubing IV Secondary IV ONE (17:41)
--- NOTE | 2019-12-11 19:01 | NUR ---
HAND-OFF: Report given to YUKI Bolden.
--- NOTE | 2019-12-11 19:20 | NUR ---
NURSE NOTES: Patient in bed, awake, alert x 4. Able to make needs known. IV site noted. Bed in low and locked position. ON nasal cannula 2 L. No complaint of pain or discomfort noted. Abdomen is soft and non distended. Call light is at bedside. WIll continue plan of care.
[2019-12-11 20:00] VITALS: BP 110/60
[2019-12-11] MEDS: Dyna-Hex 2% Top Sol 2oz TOPIC SCH (20:00)
--- NOTE | 2019-12-11 22:12 | Cardiology Progress Note ---
Assessment/Plan Assessment/Plan CHF, cardiomyopathy, at present time stable, without distress Subjective Subjective The patient feels Ok, no dysphnea recovering from his pneumonia, no rothopnea Objective Last 24 Hour Vital Signs Date Time Temp Pulse Resp B/P (MAP) Pulse Ox O2 Delivery O2 Flow Rate FiO2 12/11/19 21:31 110/60 12/11/19 21:31 80 110/60 12/11/19 20:00 98.2 80 16 110/60 (77) 100 12/11/19 17:57 130/68 12/11/19 16:00 98.7 83 20 130/68 (88) 98 12/11/19 14:40 116/56 12/11/19 14:39 116/56 12/11/19 12:00 98.1 75 18 121/63 (82) 100 12/11/19 09:58 79 122/65 12/11/19 09:57 122/65 12/11/19 09:00 Nasal Cannula 2.0 Nasal Cannula 2.0 Nasal Cannula 2.0 12/11/19 08:00 98.3 79 22 122/65 (84) 99 12/11/19 06:30 122/61 12/11/19 04:00 98.0 77 22 119/60 (79) 98 12/11/19 00:00 97.6 80 21 135/74 (94) 99 General Appearance: no apparent distress EENT: PERRL/EOMI Neck: JVD Rhythm: NSR Cardiovascular: regular rhythm Respiratory/Chest: crackles/rales Abdomen: non tender Extremities: other - left leg AKA Intake and Output 12/10/19 12/11/19 19:00 07:00 Intake Total 2055 ml 250 ml Balance 2055 ml 250 ml Intake Oral 250 ml IV Total 55 ml Hemodialysis 2000 ml Laboratory Tests Test 12/11/19 06:35 White Blood Count 8.6 K/UL (4.8-10.8) Red Blood Count 2.78 M/UL (4.70-6.10) L Hemoglobin 7.9 G/DL (14.2-18.0) L Hematocrit 23.9 % (42.0-52.0) L Mean Corpuscular Volume 86 FL (80-99) Mean Corpuscular Hemoglobin 28.4 PG (27.0-31.0) Mean Corpuscular Hemoglobin Concent 32.9 G/DL (32.0-36.0) Red Cell Distribution Width 13.4 % (11.6-14.8) Platelet Count 352 K/UL (150-450) Mean Platelet Volume 5.4 FL (6.5-10.1) L Neutrophils (%) (Auto) % (45.0-75.0) Lymphocytes (%) (Auto) % (20.0-45.0) Monocytes (%) (Auto) % (1.0-10.0) Eosinophils (%) (Auto) % (0.0-3.0) Basophils (%) (Auto) % (0.0-2.0) Differential Total Cells Counted 100 Neutrophils % (Manual) 67 % (45-75) Lymphocytes % (Manual) 19 % (20-45) L Monocytes % (Manual) 10 % (1-10) Eosinophils % (Manual) 4 % (0-3) H Basophils % (Manual) 0 % (0-2) Band Neutrophils 0 % (0-8) Platelet Estimate Adequate Platelet Morphology Normal Hypochromasia 3+ Anisocytosis 1+ Sodium Level 135 MMOL/L (136-145) L Potassium Level 4.1 MMOL/L (3.5-5.1) Chloride Level 95 MMOL/L (98-107) L Carbon Dioxide Level 30 MMOL/L (21-32) Anion Gap 10 mmol/L (5-15) Blood Urea Nitrogen 51 mg/dL (7-18) H Creatinine 6.8 MG/DL (0.55-1.30) H Estimat Glomerular Filtration Rate 10.2 mL/min (>60) Glucose Level 116 MG/DL (74-106) H Calcium Level 8.7 MG/DL (8.5-10.1) Phosphorus Level 5.7 MG/DL (2.5-4.9) H Total Bilirubin 0.3 MG/DL (0.2-1.0) Aspartate Amino Transf (AST/SGOT) 27 U/L (15-37) Alanine Aminotransferase (ALT/SGPT) 19 U/L (12-78) Alkaline Phosphatase 121 U/L (46-116) H C-Reactive Protein, Quantitative 4.9 mg/dL (0.00-0.90) H Pro-B-Type Natriuretic Peptide 51778 pg/mL (0-125) H Total Protein 7.0 G/DL (6.4-8.2) Albumin 2.1 G/DL (3.4-5.0) L Globulin 4.9 g/dL Albumin/Globulin Ratio 0.4 (1.0-2.7) L Random Vancomycin Level 14.6 ug/mL Hawa Marion MD Dec 11, 2019 22:12
[2019-12-12] VITALS: BP 112/62
[2019-12-12 04:00] VITALS: BP 102/64
[2019-12-12] MEDS: HydrALAZINE 50mg tab ORAL SCH (06:00)
[2019-12-12] MEDS: NovoLOG Insulin Flexpen SUBQ SCH ×4 (06:02→21:00)
[2019-12-12 07:09] LABS: HEMATOCRIT 22.5 % (42.0-52.0); HEMOGLOBIN 7.4 G/DL (14.2-18.0); MEAN CORPUSCULAR VOLUME 86 FL (80-99); PLATELET COUNT 357 K/UL (150-450); RED BLOOD COUNT 2.61 M/UL (4.70-6.10); WHITE BLOOD COUNT 9.2 K/UL (4.8-10.8)
--- NOTE | 2019-12-12 07:14 | NUR ---
HAND-OFF: Report given to YUKI Campuzano.
[2019-12-12 07:34] LABS: ALANINE AMINOTRANSFERASE 15 U/L (12-78); ALBUMIN/GLOBULIN RATIO 0.4 (1.0-2.7); ALKALINE PHOSPHATASE 107 U/L (46-116); ANION GAP 10 mmol/L (5-15); ASPARTATE AMINO TRANSFERASE 20 U/L (15-37); BILIRUBIN,TOTAL 0.3 MG/DL (0.2-1.0); BLOOD UREA NITROGEN 65 mg/dL (7-18); CALCIUM 8.5 MG/DL (8.5-10.1); CARBON DIOXIDE 29 MMOL/L (21-32); CHLORIDE 95 MMOL/L (98-107); CREATININE 8.2 MG/DL (0.55-1.30); PHOSPHORUS 6.3 MG/DL (2.5-4.9); POTASSIUM 4.3 MMOL/L (3.5-5.1); SODIUM 134 MMOL/L (136-145)
--- NOTE | 2019-12-12 07:55 | NUR ---
NURSE NOTES: Received reportfromout-going nurse. roundsmade, nurse introduce self to patient. patient in the bed alert and awake. verbally responsive. Patient is oriented x 4. denies any pain, breathing is even and unlaboredon 02 2l/min via NC. Denies any chest pain and discomfort. no episodes of coughing noted at this time. lungs sounds clear on bilateral lung base. IV site on left wrist is in-place; no edema and tendernessnoted. no acute distress noted on patient at this time. placed call light withinreach. will continue to observe patient.
[2019-12-12 08:00] VITALS: BP 111/52
[2019-12-12] MEDS: Docusate 100mg cap ORAL SCH ×3 (08:16→17:25)
[2019-12-12] MEDS: Dakin's 0.125% Soln (Quarter Strength) 16oz TOPIC SCH (08:19)
[2019-12-12] MEDS: Heparin 5000 units/ml inj SUBQ SCH ×2 (08:22→21:41)
[2019-12-12] MEDS: Carvedilol 12.5mg tab NG SCH ×2 (08:48→21:45)
--- NOTE | 2019-12-12 09:28 | Nephrology Progress Note ---
Assessment/Plan Problem List: (1) ARF (acute renal failure) (2) Acute respiratory failure (3) Septic shock (4) Anemia (5) History of hypertension (6) Diabetes mellitus (7) Acute on chronic systolic heart failure Assessment: ej Fx 40 Assessment Acute renal failure- ? Underlying CKD Respiratory failure Anemia Sepsis / Shock ? Pneumonia DM HTN by history Gout left BKA Cardiomyopathy - Ej Fx 40% Plan Plan: Has permacath- dialysis next 12/11 DC quiñones ? Transfuse as needed phos binders Adjust blood pressure medications. was transfused previously on coreg hydralazine previously DC Hydrocortisone Antibiotics urine studies avoid nephrotoxics monitor renal parameters Anemia hairston per orders Subjective ROS Limited/Unobtainable: No Constitutional: Reports: weakness Objective Objective Last 24 Hour Vital Signs Date Time Temp Pulse Resp B/P (MAP) Pulse Ox O2 Delivery O2 Flow Rate FiO2 12/12/19 08:48 111/52 12/12/19 08:48 79 111/52 12/12/19 08:00 98.0 79 18 111/52 (71) 99 12/12/19 07:57 73 18 98 Nasal Cannula 2.0 28 12/12/19 07:57 98 Nasal Cannula 2.0 28 12/12/19 06:00 102/64 12/12/19 04:00 98.0 77 16 102/64 (77) 99 12/12/19 00:00 98.1 80 16 112/62 (79) 97 12/11/19 21:31 110/60 12/11/19 21:31 80 110/60 12/11/19 21:00 Nasal Cannula 2.0 Nasal Cannula 2.0 Nasal Cannula 2.0 12/11/19 20:00 98.2 80 16 110/60 (77) 100 12/11/19 17:57 130/68 12/11/19 16:00 98.7 83 20 130/68 (88) 98 12/11/19 14:40 116/56 12/11/19 14:39 116/56 12/11/19 12:00 98.1 75 18 121/63 (82) 100 12/11/19 09:58 79 122/65 12/11/19 09:57 122/65 Intake and Output 12/11/19 12/12/19 19:00 07:00 Intake Total 1200 ml 1555 ml Output Total 250 ml Balance 1200 ml 1305 ml Intake Oral 1200 ml 1500 ml IV Total 55 ml Output Urine Total 250 ml Laboratory Tests 12/12/19 06:55: White Blood Count 9.2, Red Blood Count 2.61L, Hemoglobin 7.4L, Hematocrit 22.5L , Mean Corpuscular Volume 86, Mean Corpuscular Hemoglobin 28.6, Mean Corpuscular Hemoglobin Concent 33.1, Red Cell Distribution Width 13.0, Platelet Count 357, Mean Platelet Volume 5.2L, Neutrophils (%) (Auto) , Lymphocytes (%) ( Auto) , Monocytes (%) (Auto) , Eosinophils (%) (Auto) , Basophils (%) (Auto) , Differential Total Cells Counted 100, Neutrophils % (Manual) 69, Lymphocytes % ( Manual) 20, Monocytes % (Manual) 8, Eosinophils % (Manual) 3, Basophils % ( Manual) 0, Band Neutrophils 0, Platelet Estimate Adequate, Platelet Morphology Normal, Hypochromasia 3+, Anisocytosis 1+, Sodium Level 134L, Potassium Level 4.3, Chloride Level 95L, Carbon Dioxide Level 29, Anion Gap 10, Blood Urea Nitrogen 65H, Creatinine 8.2H, Estimat Glomerular Filtration Rate 8.2, Glucose Level 118H, Uric Acid 6.1, Calcium Level 8.5, Phosphorus Level 6.3H, Magnesium Level 2.1, Total Bilirubin 0.3, Aspartate Amino Transf (AST/SGOT) 20, Alanine Aminotransferase (ALT/SGPT) 15, Alkaline Phosphatase 107, C-Reactive Protein, Quantitative 5.0H, Pro-B-Type Natriuretic Peptide 7837H, Total Protein 6.7, Albumin 2.0L, Globulin 4.7, Albumin/Globulin Ratio 0.4L Height (Feet): 5 Height (Inches): 8.00 Weight (Pounds): 225 General Appearance: no apparent distress Objective no change Tej Sidhu MD Dec 12, 2019 09:28
[2019-12-12] MEDS: HydrALAZINE 25mg tab ORAL SCH ×2 (09:58→17:26)
--- NOTE | 2019-12-12 11:39 | Surgery Progress Note ---
Surgery Progress Note Subjective Procedure Performed Right femoral temporary hemodialysis catheter removal Additional Comments comfortable stable no complaints labs noted exam unchange d Objective Last 24 Hour Vital Signs Date Time Temp Pulse Resp B/P (MAP) Pulse Ox O2 Delivery O2 Flow Rate FiO2 12/12/19 09:58 111/52 12/12/19 08:48 111/52 12/12/19 08:48 79 111/52 12/12/19 08:00 98.0 79 18 111/52 (71) 99 12/12/19 07:57 73 18 98 Nasal Cannula 2.0 28 12/12/19 07:57 98 Nasal Cannula 2.0 28 12/12/19 06:00 102/64 12/12/19 04:00 98.0 77 16 102/64 (77) 99 12/12/19 00:00 98.1 80 16 112/62 (79) 97 12/11/19 21:31 110/60 12/11/19 21:31 80 110/60 12/11/19 21:00 Nasal Cannula 2.0 Nasal Cannula 2.0 Nasal Cannula 2.0 12/11/19 20:00 98.2 80 16 110/60 (77) 100 12/11/19 17:57 130/68 12/11/19 16:00 98.7 83 20 130/68 (88) 98 12/11/19 14:40 116/56 12/11/19 14:39 116/56 12/11/19 12:00 98.1 75 18 121/63 (82) 100 I&O Intake and Output 12/11/19 12/12/19 19:00 07:00 Intake Total 1200 ml 1555 ml Output Total 250 ml Balance 1200 ml 1305 ml Intake Oral 1200 ml 1500 ml IV Total 55 ml Output Urine Total 250 ml Dressing: dry Wound: dry Cardiovascular: RSR Respiratory: clear Abdomen: soft, non-tender, present bowel sounds Extremities: other Laboratory Tests Test 12/12/19 06:55 White Blood Count 9.2 K/UL (4.8-10.8) Red Blood Count 2.61 M/UL (4.70-6.10) L Hemoglobin 7.4 G/DL (14.2-18.0) L Hematocrit 22.5 % (42.0-52.0) L Mean Corpuscular Volume 86 FL (80-99) Mean Corpuscular Hemoglobin 28.6 PG (27.0-31.0) Mean Corpuscular Hemoglobin Concent 33.1 G/DL (32.0-36.0) Red Cell Distribution Width 13.0 % (11.6-14.8) Platelet Count 357 K/UL (150-450) Mean Platelet Volume 5.2 FL (6.5-10.1) L Neutrophils (%) (Auto) % (45.0-75.0) Lymphocytes (%) (Auto) % (20.0-45.0) Monocytes (%) (Auto) % (1.0-10.0) Eosinophils (%) (Auto) % (0.0-3.0) Basophils (%) (Auto) % (0.0-2.0) Differential Total Cells Counted 100 Neutrophils % (Manual) 69 % (45-75) Lymphocytes % (Manual) 20 % (20-45) Monocytes % (Manual) 8 % (1-10) Eosinophils % (Manual) 3 % (0-3) Basophils % (Manual) 0 % (0-2) Band Neutrophils 0 % (0-8) Platelet Estimate Adequate Platelet Morphology Normal Hypochromasia 3+ Anisocytosis 1+ Sodium Level 134 MMOL/L (136-145) L Potassium Level 4.3 MMOL/L (3.5-5.1) Chloride Level 95 MMOL/L (98-107) L Carbon Dioxide Level 29 MMOL/L (21-32) Anion Gap 10 mmol/L (5-15) Blood Urea Nitrogen 65 mg/dL (7-18) H Creatinine 8.2 MG/DL (0.55-1.30) H Estimat Glomerular Filtration Rate 8.2 mL/min (>60) Glucose Level 118 MG/DL (74-106) H Uric Acid 6.1 MG/DL (2.6-7.2) Calcium Level 8.5 MG/DL (8.5-10.1) Phosphorus Level 6.3 MG/DL (2.5-4.9) H Magnesium Level 2.1 MG/DL (1.8-2.4) Total Bilirubin 0.3 MG/DL (0.2-1.0) Aspartate Amino Transf (AST/SGOT) 20 U/L (15-37) Alanine Aminotransferase (ALT/SGPT) 15 U/L (12-78) Alkaline Phosphatase 107 U/L (46-116) C-Reactive Protein, Quantitative 5.0 mg/dL (0.00-0.90) H Pro-B-Type Natriuretic Peptide 7837 pg/mL (0-125) H Total Protein 6.7 G/DL (6.4-8.2) Albumin 2.0 G/DL (3.4-5.0) L Globulin 4.7 g/dL Albumin/Globulin Ratio 0.4 (1.0-2.7) L Plan Problems: (1) Septic shock Assessment & Plan: Patient in septic shock prior central line and pressors intubated on vent support in the intensive care unit tachycardic. Renal insufficiency requiring hemodialysis. Temporary hemodialysis catheter indicated and recommended Please see procedure note Dialysis as per nephrology IV antibiotics post per infectious disease Dressing changes as per protocol We will monitor site for hematoma or infection No further acute surgical intervention recommended at this time will follow with recommendations thank you for let me participate patient's care extubated improved downgraded discussed care plan with family consent obtained improved cath in place doing better d/c planning (2) Acute respiratory failure Assessment & Plan: DAILY ESTIMATED NEEDS: Needs based on Critical care, sepsis 75kg adj 22-28 kcals/kg [id number] total kcals 1.2-2 g protein/kg 90-150 g total protein 25-30 mL/kg [id number] total fluid mLs NUTRITION DIAGNOSIS: Swallowing difficulty r/t resp status as evidenced by septic shock now s/p intubation, w/ NGT, NPO at this time. ENTERAL NUTRITION RECOMMENDATIONS: Nepro @40ml/hr x24 hrs + Prosource BID to provide 960ml, 78g + 22 g pro, 698ml free H2O - As medically appropriate, rec non oral feeds via NGT - Start Nepro @20ml/hr for 6 hrs. Advance as tolerated 10ml/hr q4-6 hrs to goal. - Add Prosource BID to better meet est pro needs - Flush per . 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 We turned him to the right lateral decubitus and evaluated the wound. Fortunately what was considered to be a stage IV wound is actually not and a significant amount of the necrotic tissues actually buildup of hair and dried skin protectant. A fair amount of time was spent doing non-excisional debridement with gauze and moist saline until the area was fully cleaned. Identified was a stage II skin breakdown mainly epidermis that looked like necrotic eschar but fortunately was just epidermis and underlying healthy viable dermis with back bleeding. Wound was cleansed and total edges were identified and intact minimal tenderness on palpation good blanching tissue noted surrounding it. Thera honey placed followed by gauze dressing and foam dressing. Discussed care plan with patient. He is very compliant with turning and states he will remain off his mind will stay off his sacrum as much as possible will follow with recommendations. For now Thera honey impregnated gauze and foam dressing. Turn every 2 hours. Nutritional optimization. Ranjit Ralph Dec 12, 2019 11:39
[2019-12-12 12:00] VITALS: BP 119/50
--- NOTE | 2019-12-12 13:08 | Pulmonology Progress Note ---
Assessment/Plan Problems: (1) Acute respiratory failure Assessment & Plan: resolved (2) ESRD (end stage renal disease) (3) Septic shock Assessment & Plan: resolved (4) Chronic systolic heart failure (5) History of hypertension (6) Diabetes mellitus (7) History of left below knee amputation (8) History of gout Assessment/Plan get HD by nephrology repeat cultures titrate fio2 to sat of 92% check cultures Subjective ROS Limited/Unobtainable: No HEENT: Repors: no symptoms Respiratory: Reports: no symptoms Allergies: Coded Allergies: No Known Allergies (Unverified , 11/24/19) Objective Last 24 Hour Vital Signs Date Time Temp Pulse Resp B/P (MAP) Pulse Ox O2 Delivery O2 Flow Rate FiO2 12/12/19 12:00 97.9 79 18 119/50 (73) 99 12/12/19 09:58 111/52 12/12/19 08:48 111/52 12/12/19 08:48 79 111/52 12/12/19 08:00 98.0 79 18 111/52 (71) 99 12/12/19 07:57 73 18 98 Nasal Cannula 2.0 28 12/12/19 07:57 98 Nasal Cannula 2.0 28 12/12/19 06:00 102/64 12/12/19 04:00 98.0 77 16 102/64 (77) 99 12/12/19 00:00 98.1 80 16 112/62 (79) 97 12/11/19 21:31 110/60 12/11/19 21:31 80 110/60 12/11/19 21:00 Nasal Cannula 2.0 Nasal Cannula 2.0 Nasal Cannula 2.0 12/11/19 20:00 98.2 80 16 110/60 (77) 100 12/11/19 17:57 130/68 12/11/19 16:00 98.7 83 20 130/68 (88) 98 12/11/19 14:40 116/56 12/11/19 14:39 116/56 Intake and Output 12/11/19 12/12/19 19:00 07:00 Intake Total 1200 ml 1555 ml Output Total 250 ml Balance 1200 ml 1305 ml Intake Oral 1200 ml 1500 ml IV Total 55 ml Output Urine Total 250 ml General Appearance: WD/WN HEENT: normocephalic, atraumatic Respiratory/Chest: chest wall non-tender, lungs clear Cardiovascular: normal peripheral pulses, regular rhythm Abdomen: normal bowel sounds, soft, non tender, no scars Laboratory Tests 12/12/19 06:55: White Blood Count 9.2, Red Blood Count 2.61L, Hemoglobin 7.4L, Hematocrit 22.5L , Mean Corpuscular Volume 86, Mean Corpuscular Hemoglobin 28.6, Mean Corpuscular Hemoglobin Concent 33.1, Red Cell Distribution Width 13.0, Platelet Count 357, Mean Platelet Volume 5.2L, Neutrophils (%) (Auto) , Lymphocytes (%) ( Auto) , Monocytes (%) (Auto) , Eosinophils (%) (Auto) , Basophils (%) (Auto) , Differential Total Cells Counted 100, Neutrophils % (Manual) 69, Lymphocytes % ( Manual) 20, Monocytes % (Manual) 8, Eosinophils % (Manual) 3, Basophils % ( Manual) 0, Band Neutrophils 0, Platelet Estimate Adequate, Platelet Morphology Normal, Hypochromasia 3+, Anisocytosis 1+, Sodium Level 134L, Potassium Level 4.3, Chloride Level 95L, Carbon Dioxide Level 29, Anion Gap 10, Blood Urea Nitrogen 65H, Creatinine 8.2H, Estimat Glomerular Filtration Rate 8.2, Glucose Level 118H, Uric Acid 6.1, Calcium Level 8.5, Phosphorus Level 6.3H, Magnesium Level 2.1, Total Bilirubin 0.3, Aspartate Amino Transf (AST/SGOT) 20, Alanine Aminotransferase (ALT/SGPT) 15, Alkaline Phosphatase 107, C-Reactive Protein, Quantitative 5.0H, Pro-B-Type Natriuretic Peptide 7837H, Total Protein 6.7, Albumin 2.0L, Globulin 4.7, Albumin/Globulin Ratio 0.4L Current Medications Medications (Trade) Dose Ordered Sig/Valeriano Route PRN Reason Start Time Stop Time Status Last Admin Dose Admin Acetaminophen (Tylenol) 650 mg Q4H PRN NG Mild Pain/Temp > 100.5 12/09/19 20:33 01/02/20 20:32 12/11/19 01:30 Carvedilol (Coreg) 12.5 mg EVERY 12 HOURS NG 12/09/19 21:00 01/02/20 21:59 12/11/19 21:31 Chlorhexidine Gluconate (Katia-Hex 2%) 1 applic DAILY@1999 TOPIC 12/10/19 20:00 12/25/19 19:59 12/10/19 20:44 Dextrose (Dextrose 50%) 25 ml Q30M PRN IV Hypoglycemia 12/09/19 20:33 12/24/19 20:32 Dextrose (Dextrose 50%) 50 ml Q30M PRN IV Hypoglycemia 12/09/19 20:33 12/24/19 20:32 Docusate Sodium (Colace) 100 mg THREE TIMES A DAY ORAL 12/10/19 09:00 01/08/20 12:59 12/12/19 08:16 Epoetin Ricky (Procrit (for ESRD on dialysis)) 10,000 units THU-THU-THU SUBQ 12/12/19 21:00 01/11/20 20:59 Heparin Sodium (Porcine) (Heparin 5000 units/ml) 5,000 units EVERY 12 HOURS SUBQ 12/09/19 21:00 01/02/20 21:59 12/12/19 08:22 Hydralazine HCl (Apresoline) 25 mg Q4H PRN ORAL bp over 160 syst 12/09/19 20:37 01/08/20 20:36 Hydralazine HCl (Apresoline) 25 mg Q8H ORAL 12/12/19 10:00 01/11/20 09:59 Insulin Aspart (NovoLOG) BEFORE MEALS AND HS SUBQ 12/09/19 21:00 01/02/20 21:13 Iron Sucrose 100 mg/Sodium Chloride 55 ml @ 200 mls/hr BEDTIME IV 12/10/19 21:00 12/19/19 21:17 12/11/19 21:31 Isosorbide Dinitrate (Isordil) 20 mg TID GT 12/10/19 09:00 01/01/20 08:59 12/11/19 17:57 Nitroglycerin (Ntg) 0.4 mg Q5M PRN SL Prn Chest Pain 12/09/19 20:30 01/02/20 21:16 Ondansetron HCl (Zofran) 4 mg Q6H PRN IVP Nausea & Vomiting 12/09/19 20:34 01/02/20 20:33 Pantoprazole (Protonix) 40 mg EVERY 12 HOURS ORAL 12/09/19 21:00 01/08/20 20:59 12/12/19 08:16 Polyethylene Glycol (Miralax) 17 gm DAILYPRN PRN NG Constipation 12/09/19 20:34 01/02/20 20:33 Promethazine HCl/ Codeine (Phenergan with Codeine) 5 ml Q4H PRN NG For Cough 12/09/19 20:34 01/02/20 20:33 Sevelamer Carbonate (Renvela) 2,400 mg THREE TIMES A DAY ORAL 12/10/19 09:00 01/07/20 12:59 12/12/19 08:17 Sodium Hypochlorite (Dakin's Quarter Strength) 1 applic DAILY TOPIC 12/10/19 09:00 01/07/20 08:59 12/12/19 08:19 Vancomycin HCl (Vanco rx to dose) 1 ea DAILY PRN MISC Per rx protocol 12/09/19 20:34 01/08/20 20:33 Brandy Milton MD Dec 12, 2019 13:08
--- NOTE | 2019-12-12 13:35 | Infectious Diseases Prog Note ---
Assessment/Plan Assessment/Plan Assessment: Septic Shock- SP Pneumonia -12/01 CXR: probably unchanged bilateral diffuse interstitial and airspace disease. -11/30 sp cx:Interim marked worsening of bilateral pulmonary parenchymal disease, over one day -11/29 sp cx ESBL E.coli (S zosyn, Imipenem, bactrim) -11/24 u/a neg; ucx neg Bcx NTD influenza sc neg CXR: Bilateral dense consolidation, likely pneumonia. Pulmonary edema also possible. Correlate with clinical findings sp cx ordered,not done legionella ag urine neg S. hominis bacteremia- RIJ infection vs contamination - SP Perm Cath insertion 12/08 - HD Cath removed on 12/06 - RIJ removed on 12/02 -11/27 Bcx 1/4 S. hominis; 11/29 Bcx 1/2 S. hominis (RIJ), NTD x2 (peripheral) Low grade fever , Sp Leukocytosis, improving ARDS Acute respiratory failure s/p intubation 11/24, sp extubation 11/29, now on bipap GANGA on CKD; now on HD 11/27 Elevated LFTs;improving Troponinemia Dm2 Gout s/p L BKA allergic rhinitis CAD s/p stent prosthetic AVR hx of esophagitis PVD chronic sCHF HLD HTN SNF resident Plan: - cont IV Vanco # 6/10 -Continue empiric Meropenem # 10/10 for ESBL E.coli PNA -12/01 SP IV Vancomycin #8, Tamiflu #7 -11/30 SP LEvaquin #7, Cefepime #7 -Monitor CBC/CMP, temperatures -aspiration precautions - Bcx x2 Thank you for this consultation. Will continue to follow along with you. Subjective Allergies: Coded Allergies: No Known Allergies (Unverified , 11/24/19) Subjective comfortable no acute event Objective Vital Signs Last 24 Hour Vital Signs Date Time Temp Pulse Resp B/P (MAP) Pulse Ox O2 Delivery O2 Flow Rate FiO2 12/12/19 13:00 119/50 12/12/19 12:00 97.9 79 18 119/50 (73) 99 12/12/19 09:58 111/52 12/12/19 09:00 Nasal Cannula 2.0 Nasal Cannula 2.0 Nasal Cannula 2.0 12/12/19 08:48 111/52 12/12/19 08:48 79 111/52 12/12/19 08:00 98.0 79 18 111/52 (71) 99 12/12/19 07:57 73 18 98 Nasal Cannula 2.0 28 12/12/19 07:57 98 Nasal Cannula 2.0 28 12/12/19 06:00 102/64 12/12/19 04:00 98.0 77 16 102/64 (77) 99 12/12/19 00:00 98.1 80 16 112/62 (79) 97 12/11/19 21:31 110/60 12/11/19 21:31 80 110/60 12/11/19 21:00 Nasal Cannula 2.0 Nasal Cannula 2.0 Nasal Cannula 2.0 12/11/19 20:00 98.2 80 16 110/60 (77) 100 12/11/19 17:57 130/68 12/11/19 16:00 98.7 83 20 130/68 (88) 98 12/11/19 14:40 116/56 12/11/19 14:39 116/56 Height (Feet): 5 Height (Inches): 8.00 Weight (Pounds): 225 Laboratory Tests Test 12/12/19 06:55 White Blood Count 9.2 K/UL (4.8-10.8) Red Blood Count 2.61 M/UL (4.70-6.10) L Hemoglobin 7.4 G/DL (14.2-18.0) L Hematocrit 22.5 % (42.0-52.0) L Mean Corpuscular Volume 86 FL (80-99) Mean Corpuscular Hemoglobin 28.6 PG (27.0-31.0) Mean Corpuscular Hemoglobin Concent 33.1 G/DL (32.0-36.0) Red Cell Distribution Width 13.0 % (11.6-14.8) Platelet Count 357 K/UL (150-450) Mean Platelet Volume 5.2 FL (6.5-10.1) L Neutrophils (%) (Auto) % (45.0-75.0) Lymphocytes (%) (Auto) % (20.0-45.0) Monocytes (%) (Auto) % (1.0-10.0) Eosinophils (%) (Auto) % (0.0-3.0) Basophils (%) (Auto) % (0.0-2.0) Differential Total Cells Counted 100 Neutrophils % (Manual) 69 % (45-75) Lymphocytes % (Manual) 20 % (20-45) Monocytes % (Manual) 8 % (1-10) Eosinophils % (Manual) 3 % (0-3) Basophils % (Manual) 0 % (0-2) Band Neutrophils 0 % (0-8) Platelet Estimate Adequate Platelet Morphology Normal Hypochromasia 3+ Anisocytosis 1+ Sodium Level 134 MMOL/L (136-145) L Potassium Level 4.3 MMOL/L (3.5-5.1) Chloride Level 95 MMOL/L (98-107) L Carbon Dioxide Level 29 MMOL/L (21-32) Anion Gap 10 mmol/L (5-15) Blood Urea Nitrogen 65 mg/dL (7-18) H Creatinine 8.2 MG/DL (0.55-1.30) H Estimat Glomerular Filtration Rate 8.2 mL/min (>60) Glucose Level 118 MG/DL (74-106) H Uric Acid 6.1 MG/DL (2.6-7.2) Calcium Level 8.5 MG/DL (8.5-10.1) Phosphorus Level 6.3 MG/DL (2.5-4.9) H Magnesium Level 2.1 MG/DL (1.8-2.4) Total Bilirubin 0.3 MG/DL (0.2-1.0) Aspartate Amino Transf (AST/SGOT) 20 U/L (15-37) Alanine Aminotransferase (ALT/SGPT) 15 U/L (12-78) Alkaline Phosphatase 107 U/L (46-116) C-Reactive Protein, Quantitative 5.0 mg/dL (0.00-0.90) H Pro-B-Type Natriuretic Peptide 7837 pg/mL (0-125) H Total Protein 6.7 G/DL (6.4-8.2) Albumin 2.0 G/DL (3.4-5.0) L Globulin 4.7 g/dL Albumin/Globulin Ratio 0.4 (1.0-2.7) L Current Medications Medications (Trade) Dose Ordered Sig/Valeriano Route PRN Reason Start Time Stop Time Status Last Admin Dose Admin Acetaminophen (Tylenol) 650 mg Q4H PRN NG Mild Pain/Temp > 100.5 12/09/19 20:33 01/02/20 20:32 12/11/19 01:30 Carvedilol (Coreg) 12.5 mg EVERY 12 HOURS NG 12/09/19 21:00 01/02/20 21:59 12/11/19 21:31 Chlorhexidine Gluconate (Katia-Hex 2%) 1 applic DAILY@2000 TOPIC 12/10/19 20:00 12/25/19 19:59 12/10/19 20:44 Dextrose (Dextrose 50%) 25 ml Q30M PRN IV Hypoglycemia 12/09/19 20:33 12/24/19 20:32 Dextrose (Dextrose 50%) 50 ml Q30M PRN IV Hypoglycemia 12/09/19 20:33 12/24/19 20:32 Docusate Sodium (Colace) 100 mg THREE TIMES A DAY ORAL 12/10/19 09:00 01/08/20 12:59 12/12/19 13:15 Epoetin Ricky (Procrit (for ESRD on dialysis)) 10,000 units THU-THU-THU SUBQ 12/12/19 21:00 01/11/20 20:59 Heparin Sodium (Porcine) (Heparin 5000 units/ml) 5,000 units EVERY 12 HOURS SUBQ 12/09/19 21:00 01/02/20 21:59 12/12/19 08:22 Hydralazine HCl (Apresoline) 25 mg Q4H PRN ORAL bp over 160 syst 12/09/19 20:37 01/08/20 20:36 Hydralazine HCl (Apresoline) 25 mg Q8H ORAL 12/12/19 10:00 01/11/20 09:59 Insulin Aspart (NovoLOG) BEFORE MEALS AND HS SUBQ 12/09/19 21:00 01/02/20 21:13 Iron Sucrose 100 mg/Sodium Chloride 55 ml @ 200 mls/hr BEDTIME IV 12/10/19 21:00 12/19/19 21:17 12/11/19 21:31 Isosorbide Dinitrate (Isordil) 20 mg TID GT 12/10/19 09:00 01/01/20 08:59 12/11/19 17:57 Nitroglycerin (Ntg) 0.4 mg Q5M PRN SL Prn Chest Pain 12/09/19 20:30 3/23/20 21:16 Ondansetron HCl (Zofran) 4 mg Q6H PRN IVP Nausea & Vomiting 12/09/19 20:34 01/02/20 20:33 Pantoprazole (Protonix) 40 mg EVERY 12 HOURS ORAL 12/09/19 21:00 01/08/20 20:59 12/12/19 08:16 Polyethylene Glycol (Miralax) 17 gm DAILYPRN PRN NG Constipation 12/09/19 20:34 01/02/20 20:33 Promethazine HCl/ Codeine (Phenergan with Codeine) 5 ml Q4H PRN NG For Cough 12/09/19 20:34 01/02/20 20:33 Sevelamer Carbonate (Renvela) 2,400 mg THREE TIMES A DAY ORAL 12/10/19 09:00 01/07/20 12:59 12/12/19 13:15 Sodium Hypochlorite (Dakin's Quarter Strength) 1 applic DAILY TOPIC 12/10/19 09:00 01/07/20 08:59 12/12/19 08:19 Vancomycin HCl (Vanco rx to dose) 1 ea DAILY PRN MISC Per rx protocol 12/09/19 20:34 01/08/20 20:33 Gabe Bush MD Dec 12, 2019 13:35
--- NOTE | 2019-12-12 15:03 | NUR ---
INSURANCE REVIEW FAXED TO [facility] DEPT [phone] AUTH# [id number] NCM: JARRED GONSALVES FAX ALL CLINICALS TO: [phone]
--- NOTE | 2019-12-12 15:29 | Infectious Diseases Prog Note ---
Assessment/Plan Assessment/Plan Assessment: Septic Shock- SP Pneumonia -12/01 CXR: probably unchanged bilateral diffuse interstitial and airspace disease. -11/30 sp cx:Interim marked worsening of bilateral pulmonary parenchymal disease, over one day -11/29 sp cx ESBL E.coli (S zosyn, Imipenem, bactrim) -11/24 u/a neg; ucx neg Bcx NTD influenza sc neg CXR: Bilateral dense consolidation, likely pneumonia. Pulmonary edema also possible. Correlate with clinical findings sp cx ordered,not done legionella ag urine neg S. hominis bacteremia- RIJ infection vs contamination - SP Perm Cath insertion 12/08 - HD Cath removed on 12/06 - RIJ removed on 12/02 -11/27 Bcx 1/4 S. hominis; 11/29 Bcx 1/ S. hominis (RIJ), NTD x2 (peripheral) Low grade fever , Sp Leukocytosis, improving ARDS Acute respiratory failure s/p intubation 11/24, sp extubation 11/29, now on bipap GANGA on CKD; now on HD 11/27 Elevated LFTs;improving Troponinemia Dm2 Gout s/p L BKA allergic rhinitis CAD s/p stent prosthetic AVR hx of esophagitis PVD chronic sCHF HLD HTN SNF resident Plan: - cont IV Vanco # 8/10 - Sp Meropenem # 10/10 for ESBL E.coli PNA -12/01 SP IV Vancomycin #8, Tamiflu #7 -11/30 SP LEvaquin #7, Cefepime #7 -Monitor CBC/CMP, temperatures -aspiration precautions - Bcx x2 Thank you for this consultation. Will continue to follow along with you. Subjective Allergies: Coded Allergies: No Known Allergies (Unverified , 11/24/19) Subjective comfortable afebrile Objective Vital Signs Last 24 Hour Vital Signs Date Time Temp Pulse Resp B/P (MAP) Pulse Ox O2 Delivery O2 Flow Rate FiO2 12/12/19 13:00 119/50 12/12/19 12:00 97.9 79 18 119/50 (73) 99 12/12/19 09:58 111/52 12/12/19 09:00 Nasal Cannula 2.0 Nasal Cannula 2.0 Nasal Cannula 2.0 12/12/19 08:48 111/52 12/12/19 08:48 79 111/52 12/12/19 08:00 98.0 79 18 111/52 (71) 99 12/12/19 07:57 73 18 98 Nasal Cannula 2.0 28 12/12/19 07:57 98 Nasal Cannula 2.0 28 12/12/19 06:00 102/64 12/12/19 04:00 98.0 77 16 102/64 (77) 99 12/12/19 00:00 98.1 80 16 112/62 (79) 97 12/11/19 21:31 110/60 12/11/19 21:31 80 110/60 12/11/19 21:00 Nasal Cannula 2.0 Nasal Cannula 2.0 Nasal Cannula 2.0 12/11/19 20:00 98.2 80 16 110/60 (77) 100 12/11/19 17:57 130/68 12/11/19 16:00 98.7 83 20 130/68 (88) 98 Height (Feet): 5 Height (Inches): 8.00 Weight (Pounds): 225 Respiratory/Chest: lungs clear Cardiovascular: regular rhythm Abdomen: non distended Laboratory Tests Test 12/12/19 06:55 White Blood Count 9.2 K/UL (4.8-10.8) Red Blood Count 2.61 M/UL (4.70-6.10) L Hemoglobin 7.4 G/DL (14.2-18.0) L Hematocrit 22.5 % (42.0-52.0) L Mean Corpuscular Volume 86 FL (80-99) Mean Corpuscular Hemoglobin 28.6 PG (27.0-31.0) Mean Corpuscular Hemoglobin Concent 33.1 G/DL (32.0-36.0) Red Cell Distribution Width 13.0 % (11.6-14.8) Platelet Count 357 K/UL (150-450) Mean Platelet Volume 5.2 FL (6.5-10.1) L Neutrophils (%) (Auto) % (45.0-75.0) Lymphocytes (%) (Auto) % (20.0-45.0) Monocytes (%) (Auto) % (1.0-10.0) Eosinophils (%) (Auto) % (0.0-3.0) Basophils (%) (Auto) % (0.0-2.0) Differential Total Cells Counted 100 Neutrophils % (Manual) 69 % (45-75) Lymphocytes % (Manual) 20 % (20-45) Monocytes % (Manual) 8 % (1-10) Eosinophils % (Manual) 3 % (0-3) Basophils % (Manual) 0 % (0-2) Band Neutrophils 0 % (0-8) Platelet Estimate Adequate Platelet Morphology Normal Hypochromasia 3+ Anisocytosis 1+ Sodium Level 134 MMOL/L (136-145) L Potassium Level 4.3 MMOL/L (3.5-5.1) Chloride Level 95 MMOL/L (98-107) L Carbon Dioxide Level 29 MMOL/L (21-32) Anion Gap 10 mmol/L (5-15) Blood Urea Nitrogen 65 mg/dL (7-18) H Creatinine 8.2 MG/DL (0.55-1.30) H Estimat Glomerular Filtration Rate 8.2 mL/min (>60) Glucose Level 118 MG/DL (74-106) H Uric Acid 6.1 MG/DL (2.6-7.2) Calcium Level 8.5 MG/DL (8.5-10.1) Phosphorus Level 6.3 MG/DL (2.5-4.9) H Magnesium Level 2.1 MG/DL (1.8-2.4) Total Bilirubin 0.3 MG/DL (0.2-1.0) Aspartate Amino Transf (AST/SGOT) 20 U/L (15-37) Alanine Aminotransferase (ALT/SGPT) 15 U/L (12-78) Alkaline Phosphatase 107 U/L (46-116) C-Reactive Protein, Quantitative 5.0 mg/dL (0.00-0.90) H Pro-B-Type Natriuretic Peptide 7837 pg/mL (0-125) H Total Protein 6.7 G/DL (6.4-8.2) Albumin 2.0 G/DL (3.4-5.0) L Globulin 4.7 g/dL Albumin/Globulin Ratio 0.4 (1.0-2.7) L Current Medications Medications (Trade) Dose Ordered Sig/Valeriano Route PRN Reason Start Time Stop Time Status Last Admin Dose Admin Acetaminophen (Tylenol) 650 mg Q4H PRN NG Mild Pain/Temp > 100.5 12/09/19 20:33 01/02/20 20:32 12/11/19 01:30 Carvedilol (Coreg) 12.5 mg EVERY 12 HOURS NG 12/09/19 21:00 01/02/20 21:59 12/11/19 21:31 Chlorhexidine Gluconate (Katia-Hex 2%) 1 applic DAILY@2000 TOPIC 12/10/19 20:00 12/25/19 19:59 12/10/19 20:44 Dextrose (Dextrose 50%) 25 ml Q30M PRN IV Hypoglycemia 12/09/19 20:33 12/24/19 20:32 Dextrose (Dextrose 50%) 50 ml Q30M PRN IV Hypoglycemia 12/09/19 20:33 12/24/19 20:32 Docusate Sodium (Colace) 100 mg THREE TIMES A DAY ORAL 12/10/19 09:00 01/08/20 12:59 12/12/19 13:15 Epoetin Ricky (Procrit (for ESRD on dialysis)) 10,000 units THU-THU-THU SUBQ 12/12/19 21:00 01/11/20 20:59 Heparin Sodium (Porcine) (Heparin 5000 units/ml) 5,000 units EVERY 12 HOURS SUBQ 12/09/19 21:00 01/02/20 21:59 12/12/19 08:22 Hydralazine HCl (Apresoline) 25 mg Q4H PRN ORAL bp over 160 syst 12/09/19 20:37 01/08/20 20:36 Hydralazine HCl (Apresoline) 25 mg Q8H ORAL 12/12/19 10:00 01/11/20 09:59 Insulin Aspart (NovoLOG) BEFORE MEALS AND HS SUBQ 12/09/19 21:00 01/02/20 21:13 Iron Sucrose 100 mg/Sodium Chloride 55 ml @ 200 mls/hr BEDTIME IV 12/10/19 21:00 12/19/19 21:17 12/11/19 21:31 Isosorbide Dinitrate (Isordil) 20 mg TID GT 12/10/19 09:00 01/01/20 08:59 12/11/19 17:57 Nitroglycerin (Ntg) 0.4 mg Q5M PRN SL Prn Chest Pain 12/09/19 20:30 01/02/20 21:16 Ondansetron HCl (Zofran) 4 mg Q6H PRN IVP Nausea & Vomiting 12/09/19 20:34 01/02/20 20:33 Pantoprazole (Protonix) 40 mg EVERY 12 HOURS ORAL 12/09/19 21:00 01/08/20 20:59 12/12/19 08:16 Polyethylene Glycol (Miralax) 17 gm DAILYPRN PRN NG Constipation 12/09/19 20:34 01/02/20 20:33 Promethazine HCl/ Codeine (Phenergan with Codeine) 5 ml Q4H PRN NG For Cough 12/09/19 20:34 01/02/20 20:33 Sevelamer Carbonate (Renvela) 2,400 mg THREE TIMES A DAY ORAL 12/10/19 09:00 01/07/20 12:59 12/12/19 13:15 Sodium Hypochlorite (Dakin's Quarter Strength) 1 applic DAILY TOPIC 12/10/19 09:00 01/07/20 08:59 12/12/19 08:19 Vancomycin HCl (Vanco rx to dose) 1 ea DAILY PRN MISC Per rx protocol 12/09/19 20:34 01/08/20 20:33 Gabe Bush MD Dec 12, 2019 15:29
[2019-12-12 16:00] VITALS: BP 140/64
--- NOTE | 2019-12-12 17:14 | NUR ---
CASE MANAGEMENT:REVIEW SI;RESP FAILURE. PNA=ESBL E.COLI. SEPSIS. 98.0 89 20 140/67 98% 2L NC H/H 7.4/22.5 NA 134 CL 95 BUN 65 CR 8.2 BNP 7837 IS;IRON SUCROSE IV HS DAKINS 1/ ST TOP QD COREG NGT Q12 HRS PROTONIX NG Q12 HRS MED SURG STATUS DCP;FROM [facility]
--- NOTE | 2019-12-12 19:34 | Internal Med Progress Note ---
Subjective Date of Service: Dec 12, 2019 Physician Name AnastaciaSidney Attending Physician Cezar Ceja MD Current Medications Medications (Trade) Dose Ordered Sig/Valeriano Route PRN Reason Start Time Stop Time Status Last Admin Dose Admin Acetaminophen (Tylenol) 650 mg Q4H PRN NG Mild Pain/Temp > 100.5 12/09/19 20:33 01/02/20 20:32 12/11/19 01:30 Carvedilol (Coreg) 12.5 mg EVERY 12 HOURS NG 12/09/19 21:00 01/02/20 21:59 12/11/19 21:31 Chlorhexidine Gluconate (Katia-Hex 2%) 1 applic DAILY@1999 TOPIC 12/10/19 20:00 12/25/19 19:59 12/10/19 20:44 Dextrose (Dextrose 50%) 25 ml Q30M PRN IV Hypoglycemia 12/09/19 20:33 12/24/19 20:32 Dextrose (Dextrose 50%) 50 ml Q30M PRN IV Hypoglycemia 12/09/19 20:33 12/24/19 20:32 Docusate Sodium (Colace) 100 mg THREE TIMES A DAY ORAL 12/10/19 09:00 01/08/20 12:59 12/12/19 17:25 Epoetin Ricky (Epoetin Ricky(ESRD on dialysis)) 10,000 unit THU-THU-THU SUBQ 12/12/19 21:00 01/11/20 20:59 Heparin Sodium (Porcine) (Heparin 5000 units/ml) 5,000 units EVERY 12 HOURS SUBQ 12/09/19 21:00 01/02/20 21:59 12/12/19 08:22 Hydralazine HCl (Apresoline) 25 mg Q4H PRN ORAL bp over 160 syst 12/09/19 20:37 01/08/20 20:36 Hydralazine HCl (Apresoline) 25 mg Q8H ORAL 12/12/19 10:00 01/11/20 09:59 Insulin Aspart (NovoLOG) BEFORE MEALS AND HS SUBQ 12/09/19 21:00 01/02/20 21:13 Iron Sucrose 100 mg/Sodium Chloride 55 ml @ 200 mls/hr BEDTIME IV 12/10/19 21:00 12/19/19 21:17 12/11/19 21:31 Isosorbide Dinitrate (Isordil) 20 mg TID GT 12/10/19 09:00 01/01/20 08:59 12/11/19 17:57 Nitroglycerin (Ntg) 0.4 mg Q5M PRN SL Prn Chest Pain 12/09/19 20:30 01/02/20 21:16 Ondansetron HCl (Zofran) 4 mg Q6H PRN IVP Nausea & Vomiting 12/09/19 20:34 01/02/20 20:33 Pantoprazole (Protonix) 40 mg EVERY 12 HOURS ORAL 12/09/19 21:00 01/08/20 20:59 12/12/19 08:16 Polyethylene Glycol (Miralax) 17 gm DAILYPRN PRN NG Constipation 12/09/19 20:34 01/02/20 20:33 Promethazine HCl/ Codeine (Phenergan with Codeine) 5 ml Q4H PRN NG For Cough 12/09/19 20:34 01/02/20 20:33 Sevelamer Carbonate (Renvela) 2,400 mg THREE TIMES A DAY ORAL 12/10/19 09:00 01/07/20 12:59 12/12/19 17:25 Sodium Hypochlorite (Dakin's Quarter Strength) 1 applic DAILY TOPIC 12/10/19 09:00 01/07/20 08:59 12/12/19 08:19 Vancomycin HCl (Vanco rx to dose) 1 ea DAILY PRN MISC Per rx protocol 12/09/19 20:34 01/08/20 20:33 Allergies: Coded Allergies: No Known Allergies (Unverified , 11/24/19) ROS Limited/Unobtainable: No Constitutional: Reports: no symptoms HEENT: Reports: no symptoms Cardiovascular: Reports: no symptoms Respiratory: Reports: no symptoms Gastrointestinal/Abdominal: Reports: no symptoms Genitourinary: Reports: no symptoms Neurologic/Psychiatric: Reports: no symptoms Subjective 59 YO M admitted with respiratory failure. Now pneumonia and sepsis. Cover for Nataly Foote-Dr Ceaj. Objective Last Vital Signs Date Time Temp Pulse Resp B/P (MAP) Pulse Ox O2 Delivery O2 Flow Rate FiO2 12/12/19 17:26 140/64 12/12/19 16:00 97.8 89 20 98 3/2/20 09:00 Nasal Cannula 2.0 Nasal Cannula 2.0 Nasal Cannula 2.0 12/12/19 07:57 28 Laboratory Tests Test 12/12/19 06:55 White Blood Count 9.2 K/UL (4.8-10.8) Red Blood Count 2.61 M/UL (4.70-6.10) L Hemoglobin 7.4 G/DL (14.2-18.0) L Hematocrit 22.5 % (42.0-52.0) L Mean Corpuscular Volume 86 FL (80-99) Mean Corpuscular Hemoglobin 28.6 PG (27.0-31.0) Mean Corpuscular Hemoglobin Concent 33.1 G/DL (32.0-36.0) Red Cell Distribution Width 13.0 % (11.6-14.8) Platelet Count 357 K/UL (150-450) Mean Platelet Volume 5.2 FL (6.5-10.1) L Neutrophils (%) (Auto) % (45.0-75.0) Lymphocytes (%) (Auto) % (20.0-45.0) Monocytes (%) (Auto) % (1.0-10.0) Eosinophils (%) (Auto) % (0.0-3.0) Basophils (%) (Auto) % (0.0-2.0) Differential Total Cells Counted 100 Neutrophils % (Manual) 69 % (45-75) Lymphocytes % (Manual) 20 % (20-45) Monocytes % (Manual) 8 % (1-10) Eosinophils % (Manual) 3 % (0-3) Basophils % (Manual) 0 % (0-2) Band Neutrophils 0 % (0-8) Platelet Estimate Adequate Platelet Morphology Normal Hypochromasia 3+ Anisocytosis 1+ Sodium Level 134 MMOL/L (136-145) L Potassium Level 4.3 MMOL/L (3.5-5.1) Chloride Level 95 MMOL/L (98-107) L Carbon Dioxide Level 29 MMOL/L (21-32) Anion Gap 10 mmol/L (5-15) Blood Urea Nitrogen 65 mg/dL (7-18) H Creatinine 8.2 MG/DL (0.55-1.30) H Estimat Glomerular Filtration Rate 8.2 mL/min (>60) Glucose Level 118 MG/DL (74-106) H Uric Acid 6.1 MG/DL (2.6-7.2) Calcium Level 8.5 MG/DL (8.5-10.1) Phosphorus Level 6.3 MG/DL (2.5-4.9) H Magnesium Level 2.1 MG/DL (1.8-2.4) Total Bilirubin 0.3 MG/DL (0.2-1.0) Aspartate Amino Transf (AST/SGOT) 20 U/L (15-37) Alanine Aminotransferase (ALT/SGPT) 15 U/L (12-78) Alkaline Phosphatase 107 U/L (46-116) C-Reactive Protein, Quantitative 5.0 mg/dL (0.00-0.90) H Pro-B-Type Natriuretic Peptide 7837 pg/mL (0-125) H Total Protein 6.7 G/DL (6.4-8.2) Albumin 2.0 G/DL (3.4-5.0) L Globulin 4.7 g/dL Albumin/Globulin Ratio 0.4 (1.0-2.7) L Intake and Output 12/11/19 12/12/19 19:00 07:00 Intake Total 1200 ml 1555 ml Output Total 250 ml Balance 1200 ml 1305 ml Intake Oral 1200 ml 1500 ml IV Total 55 ml Output Urine Total 250 ml Objective PHYSICAL EXAMINATION: GENERAL: The patient is a well-developed and well-nourished male, in moderate respiratory distress. HEENT: Eyes, pupils are equal and responsive to light and accommodation. Extraocular movements are intact. NECK: Supple without lymphadenopathy. CHEST: nasal canula; Mechanical breath sounds, otherwise without wheezes or rales. CARDIOVASCULAR: Regular rate. S1 and S2 normal without murmurs, rubs, or gallops. ABDOMEN: Soft, nontender, and nondistended. Positive bowel sounds. No evidence of hepatosplenomegaly. Currently, no rebound or guarding noted. EXTREMITIES: Negative for clubbing, cyanosis, or edema. RECTAL/GENITAL: Refused. NEUROLOGIC: Cranial nerves II through XII are grossly intact without focal deficits. Assessment/Plan Assessment/Plan ASSESSMENT: This is a 59-year-old male. 1. Respiratory failure. 2. Pneumonia=ESBL E. coli 3. Sepsis=staph hominis. 4. Diabetes type 2. 5. Hypertension. 6. Hypercholesterolemia. TREATMENT: 1. Respiratory failure/pneumonia. A Pulmonary consultation has been obtained with Dr. Brandy Milton.Extubated Sputum=ESBL E. Coli. ABX=S/P meropenem; continue vanco and meropenem. ID=Dr Souza S/P Tamiflu per ID=Dr Andrade. We will follow recommendations of Pulmonary. 2. Sepsis. Blood cultures=Staph Hominis. ABX=vanco and meropenem 3. Diabetes type 2. A NovoLog sliding scale has been instituted. 4. Hypertension. The patient is currently hypotensive. Hold antihypertensive medication. 5. Hypercholesterolemia. Continue atorvastatin as above. Sidney Galaviz MD Dec 12, 2019 19:34
--- NOTE | 2019-12-12 19:47 | NUR ---
HAND-OFF: Report given to Satya.
--- NOTE | 2019-12-12 19:50 | NUR ---
NURSE NOTES: Pt. received from YUKI Buck. Pt. AAOx4, on room NC 2L no complaints of pain and no indications of respiratory distress. IV site left wrist 20g, asymptomatic, intact, and patent; saline locked. Pt. awaiting dialysis, dialysis nurse called and notified will be up shortly. Bed is low and locked, side rails x2 up, bed alarm active, and call light is in reach. Will continue to monitor.
[2019-12-12 20:00] VITALS: BP 131/61
[2019-12-12] MEDS ORDERED: Epogen (for ESRD on dialysis) SUBQ SCH (21:00)
[2019-12-12] MEDS: Epoetin Alfa-EPBX(ESRD on dialysis)10,000 unit/ml vial SUBQ SCH (21:39)
[2019-12-12] MEDS: Dyna-Hex 2% Top Sol 2oz TOPIC SCH (21:39)
[2019-12-12] MEDS: Acetaminophen 650mg/20.3ml NG PRN (22:53)
[2019-12-13] VITALS: BP 138/68
[2019-12-13] MEDS: HydrALAZINE 25mg tab ORAL SCH ×3 (02:22→17:48)
[2019-12-13 04:00] VITALS: BP 130/60
[2019-12-13] MEDS: NovoLOG Insulin Flexpen SUBQ SCH ×4 (06:09→21:00)
[2019-12-13] MEDS: Acetaminophen 650mg/20.3ml NG PRN (06:10)
[2019-12-13 06:22] LABS: HEMATOCRIT 23.4 % (42.0-52.0); HEMOGLOBIN 7.8 G/DL (14.2-18.0); MEAN CORPUSCULAR VOLUME 86 FL (80-99); PLATELET COUNT 343 K/UL (150-450); RED BLOOD COUNT 2.72 M/UL (4.70-6.10); RED CELL DISTRIBUTION WIDTH 12.6 % (11.6-14.8); WHITE BLOOD COUNT 10.8 K/UL (4.8-10.8)
[2019-12-13 06:35] LABS: ANION GAP 14 mmol/L (5-15); BLOOD UREA NITROGEN 54 mg/dL (7-18); CALCIUM 8.8 MG/DL (8.5-10.1); CARBON DIOXIDE 26 MMOL/L (21-32); CHLORIDE 97 MMOL/L (98-107); CREATININE 7.2 MG/DL (0.55-1.30); SODIUM 136 MMOL/L (136-145)
--- NOTE | 2019-12-13 07:31 | NUR ---
HAND-OFF: Report given to YUKI Buck.
[2019-12-13 08:00] VITALS: BP 165/85
--- NOTE | 2019-12-13 08:07 | NUR ---
NURSE NOTES: received patient in the bed asleep. breathing is even and unlabored on 02@2l/min via NC. HOB elevated. IV catheter is in-place; site intact . no infiltration noted. skin is warm and dry to touch. call light is within reach. No acute distress noted on patient at this time.
[2019-12-13] MEDS: Docusate 100mg cap ORAL SCH ×3 (08:38→17:47)
[2019-12-13] MEDS: Carvedilol 12.5mg tab NG SCH ×2 (08:38→21:04)
[2019-12-13] MEDS: Heparin 5000 units/ml inj SUBQ SCH ×2 (08:40→21:14)
[2019-12-13] MEDS: Dakin's 0.125% Soln (Quarter Strength) 16oz TOPIC SCH (08:44)
[2019-12-13 12:00] VITALS: BP 124/51
--- NOTE | 2019-12-13 12:34 | Pulmonology Progress Note ---
Assessment/Plan Problems: (1) Acute respiratory failure Assessment & Plan: resolved (2) ESRD (end stage renal disease) (3) Septic shock Assessment & Plan: resolved (4) Chronic systolic heart failure (5) History of hypertension (6) Diabetes mellitus (7) History of left below knee amputation (8) History of gout Assessment/Plan get HD by nephrology repeat cultures titrate fio2 to sat of 92% check cultures DC planning Subjective ROS Limited/Unobtainable: No Constitutional: Reports: no symptoms Respiratory: Reports: no symptoms Allergies: Coded Allergies: No Known Allergies (Unverified , 11/24/19) Objective Last 24 Hour Vital Signs Date Time Temp Pulse Resp B/P (MAP) Pulse Ox O2 Delivery O2 Flow Rate FiO2 12/13/19 12:00 98.2 73 22 124/51 (75) 100 12/13/19 11:53 124/51 12/13/19 09:00 Nasal Cannula 2.0 Nasal Cannula 2.0 Nasal Cannula 2.0 12/13/19 08:39 165/85 12/13/19 08:38 76 165/85 12/13/19 08:00 98.1 76 20 165/85 (111) 99 12/13/19 07:45 98 Nasal Cannula 2.0 28 12/13/19 04:00 98.0 77 20 130/60 (83) 100 12/13/19 02:22 138/68 12/13/19 00:00 98.1 77 20 138/68 (91) 100 12/12/19 21:45 77 131/61 12/12/19 21:00 Nasal Cannula 2.0 Nasal Cannula 2.0 Nasal Cannula 2.0 12/12/19 20:13 98 Nasal Cannula 2.0 28 12/12/19 20:00 98.1 77 20 131/61 (84) 100 12/12/19 17:26 140/64 12/12/19 17:25 140/64 12/12/19 16:00 97.8 89 20 140/64 (89) 98 12/12/19 13:00 119/50 Intake and Output 12/12/19 12/13/19 19:00 07:00 Intake Total 720 ml 2055 ml Output Total 500 ml Balance 720 ml 1555 ml Intake Oral 720 ml IV Total 55 ml Hemodialysis 2000 ml Output Urine Total 500 ml General Appearance: WD/WN HEENT: normocephalic, anicteric Respiratory/Chest: chest wall non-tender, lungs clear Cardiovascular: normal peripheral pulses, normal rate Abdomen: normal bowel sounds, non distended Extremities: no cyanosis Skin: no rash Laboratory Tests 12/13/19 04:45: White Blood Count 10.8, Red Blood Count 2.72L, Hemoglobin 7.8L, Hematocrit 23.4L , Mean Corpuscular Volume 86, Mean Corpuscular Hemoglobin 28.7, Mean Corpuscular Hemoglobin Concent 33.3, Red Cell Distribution Width 12.6, Platelet Count 343, Mean Platelet Volume 5.4L, Neutrophils (%) (Auto) , Lymphocytes (%) ( Auto) , Monocytes (%) (Auto) , Eosinophils (%) (Auto) , Basophils (%) (Auto) , Differential Total Cells Counted 100, Neutrophils % (Manual) 65, Lymphocytes % ( Manual) 22, Monocytes % (Manual) 8, Eosinophils % (Manual) 5H, Basophils % ( Manual) 0, Band Neutrophils 0, Platelet Estimate Adequate, Platelet Morphology Normal, Hypochromasia 1+, Sodium Level 136, Potassium Level 4.0, Chloride Level 97L, Carbon Dioxide Level 26, Anion Gap 14, Blood Urea Nitrogen 54H, Creatinine 7.2H, Estimat Glomerular Filtration Rate 9.6, Glucose Level 103, Calcium Level 8.8, Random Vancomycin Level 22.0 Current Medications Medications (Trade) Dose Ordered Sig/Valeriano Route PRN Reason Start Time Stop Time Status Last Admin Dose Admin Acetaminophen (Tylenol) 650 mg Q4H PRN NG Mild Pain/Temp > 100.5 12/09/19 20:33 01/02/20 20:32 12/13/19 06:10 Carvedilol (Coreg) 12.5 mg EVERY 12 HOURS NG 12/09/19 21:00 01/02/20 21:59 12/13/19 08:38 Chlorhexidine Gluconate (Katia-Hex 2%) 1 applic DAILY@1999 TOPIC 12/10/19 20:00 12/25/19 19:59 12/12/19 21:39 Dextrose (Dextrose 50%) 25 ml Q30M PRN IV Hypoglycemia 12/09/19 20:33 12/24/19 20:32 Dextrose (Dextrose 50%) 50 ml Q30M PRN IV Hypoglycemia 12/09/19 20:33 12/24/19 20:32 Docusate Sodium (Colace) 100 mg THREE TIMES A DAY ORAL 12/10/19 09:00 01/08/20 12:59 12/13/19 08:38 Epoetin Ricky (Epoetin Ricky(ESRD on dialysis)) 10,000 unit THU-THU-THU SUBQ 12/12/19 21:00 01/11/20 20:59 12/12/19 21:39 Heparin Sodium (Porcine) (Heparin 5000 units/ml) 5,000 units EVERY 12 HOURS SUBQ 12/09/19 21:00 01/02/20 21:59 12/13/19 08:40 Hydralazine HCl (Apresoline) 25 mg Q4H PRN ORAL bp over 160 syst 12/09/19 20:37 01/08/20 20:36 Hydralazine HCl (Apresoline) 25 mg Q8H ORAL 12/12/19 10:00 01/11/20 09:59 12/13/19 11:53 Insulin Aspart (NovoLOG) BEFORE MEALS AND HS SUBQ 12/09/19 21:00 01/02/20 21:13 Iron Sucrose 100 mg/Sodium Chloride 55 ml @ 200 mls/hr BEDTIME IV 12/10/19 21:00 12/19/19 21:17 12/12/19 22:52 Isosorbide Dinitrate (Isordil) 20 mg TID GT 12/10/19 09:00 01/01/20 08:59 12/13/19 08:39 Nitroglycerin (Ntg) 0.4 mg Q5M PRN SL Prn Chest Pain 12/09/19 20:30 01/02/20 21:16 Ondansetron HCl (Zofran) 4 mg Q6H PRN IVP Nausea & Vomiting 12/09/19 20:34 01/02/20 20:33 Pantoprazole (Protonix) 40 mg EVERY 12 HOURS ORAL 12/09/19 21:00 01/08/20 20:59 12/13/19 08:44 Polyethylene Glycol (Miralax) 17 gm DAILYPRN PRN NG Constipation 12/09/19 20:34 01/02/20 20:33 Promethazine HCl/ Codeine (Phenergan with Codeine) 5 ml Q4H PRN NG For Cough 12/09/19 20:34 01/02/20 20:33 Sevelamer Carbonate (Renvela) 2,400 mg THREE TIMES A DAY ORAL 12/10/19 09:00 01/07/20 12:59 12/13/19 08:37 Sodium Hypochlorite (Dakin's Quarter Strength) 1 applic DAILY TOPIC 12/10/19 09:00 01/07/20 08:59 12/13/19 08:44 Vancomycin HCl (Vanco rx to dose) 1 ea DAILY PRN MISC Per rx protocol 12/09/19 20:34 01/08/20 20:33 Brandy Milton MD Dec 13, 2019 12:34
--- NOTE | 2019-12-13 13:59 | NUR ---
RD ASSESSMENT & RECOMMENDATIONS SEE CARE ACTIVITY FOR COMPLETE ASSESSMENT DAILY ESTIMATED NEEDS: Needs based on Pulmonary, HD needs, wound 75kg adj 25-30 kcals/kg 2420-4191 total kcals 1.25-1.8 g protein/kg 94-135 g total protein 20-22 mL/kg 4267-0110 total fluid mLs NUTRITION DIAGNOSIS: * Swallowing difficulty r/t resp status as evidenced by septic, now extubated, NGT removed, s/p FUSE SPOOLER eval, on soft easy chew texture diet. * Increased kcal/prot needs R/T renal failure, wound healing as evidenced by pt on HD, s/p perma cath placement, admitted w/ sacral pressure injury, refer to WC eval. CURRENT DIET:RENAL, CCHO MED/ soft easy chew PO DIET RECOMMENDATIONS: RENAL, CCHO MED/ texture per FUSE SPOOLER ADDITIONAL RECOMMENDATIONS: 1) Per SNF: 69inches tall, last wt of 210 lbs (2/) -> rec weekly calibrated bed scale wts 2) Monitor for continuity of HD: first HD on 11/27 (NOW S/P PERMACATH) 3) Monitor Po intake closely, rec Nepro x 1 at this time until PO intake consistently adequate (425kcal/19g prot per bottle) 4) Wound healing: Add Nephrovite x 1, Juan 1pkt BID 5) Monitor lytes
--- NOTE | 2019-12-13 14:23 | Nephrology Progress Note ---
Assessment/Plan Problem List: (1) ARF (acute renal failure) (2) Acute respiratory failure (3) Septic shock (4) Anemia (5) History of hypertension (6) Diabetes mellitus (7) Acute on chronic systolic heart failure Assessment: ej Fx 40 Assessment Acute renal failure- ? Underlying CKD Respiratory failure Anemia Sepsis / Shock ? Pneumonia DM HTN by history Gout left BKA Cardiomyopathy - Ej Fx 40% Plan Plan: Has permacath- dialysis next 12/13 DC quiñones ? Transfuse as needed phos binders Adjust blood pressure medications. was transfused previously on coreg hydralazine previously DC Hydrocortisone Antibiotics urine studies avoid nephrotoxics monitor renal parameters Anemia hairston per orders Subjective ROS Limited/Unobtainable: No Constitutional: Reports: malaise Objective Objective Last 24 Hour Vital Signs Date Time Temp Pulse Resp B/P (MAP) Pulse Ox O2 Delivery O2 Flow Rate FiO2 12/13/19 12:58 124/51 12/13/19 12:00 98.2 73 22 124/51 (75) 100 12/13/19 11:53 124/51 12/13/19 09:00 Nasal Cannula 2.0 Nasal Cannula 2.0 Nasal Cannula 2.0 12/13/19 08:39 165/85 12/13/19 08:38 76 165/85 12/13/19 08:00 98.1 76 20 165/85 (111) 99 12/13/19 07:45 98 Nasal Cannula 2.0 28 12/13/19 04:00 98.0 77 20 130/60 (83) 100 12/13/19 02:22 138/68 12/13/19 00:00 98.1 77 20 138/68 (91) 100 12/12/19 21:45 77 131/61 12/12/19 21:00 Nasal Cannula 2.0 Nasal Cannula 2.0 Nasal Cannula 2.0 12/12/19 20:13 98 Nasal Cannula 2.0 28 12/12/19 20:00 98.1 77 20 131/61 (84) 100 12/12/19 17:26 140/64 12/12/19 17:25 140/64 12/12/19 16:00 97.8 89 20 140/64 (89) 98 Intake and Output 12/12/19 12/13/19 19:00 07:00 Intake Total 720 ml 2055 ml Output Total 500 ml Balance 720 ml 1555 ml Intake Oral 720 ml IV Total 55 ml Hemodialysis 2000 ml Output Urine Total 500 ml Laboratory Tests 12/13/19 04:45: White Blood Count 10.8, Red Blood Count 2.72L, Hemoglobin 7.8L, Hematocrit 23.4L , Mean Corpuscular Volume 86, Mean Corpuscular Hemoglobin 28.7, Mean Corpuscular Hemoglobin Concent 33.3, Red Cell Distribution Width 12.6, Platelet Count 343, Mean Platelet Volume 5.4L, Neutrophils (%) (Auto) , Lymphocytes (%) ( Auto) , Monocytes (%) (Auto) , Eosinophils (%) (Auto) , Basophils (%) (Auto) , Differential Total Cells Counted 100, Neutrophils % (Manual) 65, Lymphocytes % ( Manual) 22, Monocytes % (Manual) 8, Eosinophils % (Manual) 5H, Basophils % ( Manual) 0, Band Neutrophils 0, Platelet Estimate Adequate, Platelet Morphology Normal, Hypochromasia 1+, Sodium Level 136, Potassium Level 4.0, Chloride Level 97L, Carbon Dioxide Level 26, Anion Gap 14, Blood Urea Nitrogen 54H, Creatinine 7.2H, Estimat Glomerular Filtration Rate 9.6, Glucose Level 103, Calcium Level 8.8, Random Vancomycin Level 22.0 Height (Feet): 5 Height (Inches): 8.00 Weight (Pounds): 225 General Appearance: no apparent distress Cardiovascular: normal rate Respiratory/Chest: decreased breath sounds Abdomen: soft Objective no change Tej Sidhu MD Dec 13, 2019 14:23
--- NOTE | 2019-12-13 15:08 | NUR ---
DISCHARGE SWALLOW/SPEECH THERAPY SUMMARY: PATIENT WAS SEEN FOR DYSPHAGIA, SEE SWALLOWING EVALUATION AND MODIFIED BARIUM SWALLOW STUDY. PATIENT'S GOALS MET FOR INTAKE ON SOFT CHEW AND THIN LIQUID DIET. GOALS MET FOR NEW STAFF, PATIENT, AND HIS FAMILY EDUCATED/TRAINED IN ASPIRATION PRECAUTIONS (SEE REPORT FOR SPECIFIC PRECAUTIONS. RE-ASSESSED PATIENT WITH THIN LIQUIDS SEQUENTIAL SIPS VIA STRAW DURING 3 OZ WATER TEST, ABLE TO COMPLETE ENTIRE AMOUNT W/O OVERT ASPIRATION. RESPIRATORY RATE WAS 16 BPM AT REST AND AFTER COMPLETING THE TASK. PLAN: WILL F/UP SKILLED DYSPHAGIA MANAGEMENT AND TX AT D/C SETTING ONLY IF INDICATED UPON RE-EVALUATION. WILL D/C FROM SKILLED ASSET ADMINISTRATOR SERVICES AT THIS TIME DUE TO GROSSLY FUNCTIONAL SWALLOWING SKILLS.
--- NOTE | 2019-12-13 15:16 | NUR ---
SANDFILL OPERATOR NOTES SPOKE WITH STRUCTURAL TEST ENGINEER AT [facility], PT ACCEPTED. HD DAYS T, S WITH A CHAIR TIME OF 1330. SPOKE WITH RADHA FROM [facility], NO MALE BEDS @ THIS TIME. DCP ONGOING.
[2019-12-13 16:00] VITALS: BP 130/68
--- NOTE | 2019-12-13 16:06 | Surgery Progress Note ---
Surgery Progress Note Subjective Procedure Performed Right femoral temporary hemodialysis catheter removal Symptoms: improved, tolerating diet, passing flatus, BM Objective Last 24 Hour Vital Signs Date Time Temp Pulse Resp B/P (MAP) Pulse Ox O2 Delivery O2 Flow Rate FiO2 12/13/19 12:58 124/51 12/13/19 12:00 98.2 73 22 124/51 (75) 100 12/13/19 11:53 124/51 12/13/19 09:00 Nasal Cannula 2.0 Nasal Cannula 2.0 Nasal Cannula 2.0 12/13/19 08:39 165/85 12/13/19 08:38 76 165/85 12/13/19 08:00 98.1 76 20 165/85 (111) 99 12/13/19 07:45 98 Nasal Cannula 2.0 28 12/13/19 04:00 98.0 77 20 130/60 (83) 100 12/13/19 02:22 138/68 12/13/19 00:00 98.1 77 20 138/68 (91) 100 12/12/19 21:45 77 131/61 12/12/19 21:00 Nasal Cannula 2.0 Nasal Cannula 2.0 Nasal Cannula 2.0 12/12/19 20:13 98 Nasal Cannula 2.0 28 12/12/19 20:00 98.1 77 20 131/61 (84) 100 12/12/19 17:26 140/64 12/12/19 17:25 140/64 I&O Intake and Output 12/12/19 12/13/19 19:00 07:00 Intake Total 720 ml 2055 ml Output Total 500 ml Balance 720 ml 1555 ml Intake Oral 720 ml IV Total 55 ml Hemodialysis 2000 ml Output Urine Total 500 ml Dressing: dry Wound: clean Drains: none Cardiovascular: RSR Respiratory: clear Abdomen: soft, non-tender, present bowel sounds Extremities: no edema, no tenderness, no cyanosis Laboratory Tests Test 12/13/19 04:45 White Blood Count 10.8 K/UL (4.8-10.8) Red Blood Count 2.72 M/UL (4.70-6.10) L Hemoglobin 7.8 G/DL (14.2-18.0) L Hematocrit 23.4 % (42.0-52.0) L Mean Corpuscular Volume 86 FL (80-99) Mean Corpuscular Hemoglobin 28.7 PG (27.0-31.0) Mean Corpuscular Hemoglobin Concent 33.3 G/DL (32.0-36.0) Red Cell Distribution Width 12.6 % (11.6-14.8) Platelet Count 343 K/UL (150-450) Mean Platelet Volume 5.4 FL (6.5-10.1) L Neutrophils (%) (Auto) % (45.0-75.0) Lymphocytes (%) (Auto) % (20.0-45.0) Monocytes (%) (Auto) % (1.0-10.0) Eosinophils (%) (Auto) % (0.0-3.0) Basophils (%) (Auto) % (0.0-2.0) Differential Total Cells Counted 100 Neutrophils % (Manual) 65 % (45-75) Lymphocytes % (Manual) 22 % (20-45) Monocytes % (Manual) 8 % (1-10) Eosinophils % (Manual) 5 % (0-3) H Basophils % (Manual) 0 % (0-2) Band Neutrophils 0 % (0-8) Platelet Estimate Adequate Platelet Morphology Normal Hypochromasia 1+ Sodium Level 136 MMOL/L (136-145) Potassium Level 4.0 MMOL/L (3.5-5.1) Chloride Level 97 MMOL/L (98-107) L Carbon Dioxide Level 26 MMOL/L (21-32) Anion Gap 14 mmol/L (5-15) Blood Urea Nitrogen 54 mg/dL (7-18) H Creatinine 7.2 MG/DL (0.55-1.30) H Estimat Glomerular Filtration Rate 9.6 mL/min (>60) Glucose Level 103 MG/DL (74-106) Calcium Level 8.8 MG/DL (8.5-10.1) Random Vancomycin Level 22.0 ug/mL Plan Problems: (1) Septic shock Assessment & Plan: Patient in septic shock prior central line and pressors intubated on vent support in the intensive care unit tachycardic. Renal insufficiency requiring hemodialysis. Temporary hemodialysis catheter indicated and recommended Please see procedure note Dialysis as per nephrology IV antibiotics post per infectious disease Dressing changes as per protocol We will monitor site for hematoma or infection No further acute surgical intervention recommended at this time will follow with recommendations thank you for let me participate patient's care extubated improved downgraded discussed care plan with family consent obtained improved cath in place doing better d/c planning (2) Acute respiratory failure Assessment & Plan: DAILY ESTIMATED NEEDS: Needs based on Critical care, sepsis 75kg adj 22-28 kcals/kg 3540-1129 total kcals 1.2-2 g protein/kg 90-150 g total protein 25-30 mL/kg 9393-2824 total fluid mLs NUTRITION DIAGNOSIS: Swallowing difficulty r/t resp status as evidenced by septic shock now s/p intubation, w/ NGT, NPO at this time. ENTERAL NUTRITION RECOMMENDATIONS: Nepro @40ml/hr x24 hrs + Prosource BID to provide 960ml, 78g + 22 g pro, 698ml free H2O - As medically appropriate, rec non oral feeds via NGT - Start Nepro @20ml/hr for 6 hrs. Advance as tolerated 10ml/hr q4-6 hrs to goal. - Add Prosource BID to better meet est pro needs - Flush per MD. HOB over 30 degrees -------- ADDITIONAL RECOMMENDATIONS: 1) Tf recs as above, feed as medically able 2) Ad PROSOURCE VIA NGT BID to better meet est pro needs 3) Per SNF: 69inches tall, last wt of 210 lbs (2/3) -> rec weekly calibrated bed scale wts 4) MAT MACHINE OPERATOR eval upon extubation (3) Sepsis Assessment & Plan: Tunneled right permacath placed (4) History of left below knee amputation Assessment & Plan: Wound stable dressings intact elevate with pillow This patient is improving he spent some time with him at the bedside. We turned him to the right lateral decubitus and evaluated the wound. Fortunately what was considered to be a stage IV wound is actually not and a significant amount of the necrotic tissues actually buildup of hair and dried skin protectant. A fair amount of time was spent doing non-excisional debridement with gauze and moist saline until the area was fully cleaned. Identified was a stage II skin breakdown mainly epidermis that looked like necrotic eschar but fortunately was just epidermis and underlying healthy viable dermis with back bleeding. Wound was cleansed and total edges were identified and intact minimal tenderness on palpation good blanching tissue noted surrounding it. Thera honey placed followed by gauze dressing and foam dressing. Discussed care plan with patient. He is very compliant with turning and states he will remain off his mind will stay off his sacrum as much as possible will follow with recommendations. For now Thera honey impregnated gauze and foam dressing. Turn every 2 hours. Nutritional optimization. Ranjit Ralph Dec 13, 2019 16:06
--- NOTE | 2019-12-13 16:09 | NUR ---
CHARGE NURSE NOTE: Hemodialysis ordered by for 12/14/19. Spoke with Yanna, VIP was notified.
--- NOTE | 2019-12-13 16:56 | Internal Med Progress Note ---
Subjective Date of Service: Dec 13, 2019 Physician Name AnastaciaSidney Attending Physician Cezar Ceja MD Current Medications Medications (Trade) Dose Ordered Sig/Valeriano Route PRN Reason Start Time Stop Time Status Last Admin Dose Admin Acetaminophen (Tylenol) 650 mg Q4H PRN NG Mild Pain/Temp > 100.5 12/09/19 20:33 01/02/20 20:32 12/13/19 06:10 Carvedilol (Coreg) 12.5 mg EVERY 12 HOURS NG 12/09/19 21:00 01/02/20 21:59 12/13/19 08:38 Chlorhexidine Gluconate (Katia-Hex 2%) 1 applic DAILY@1999 TOPIC 12/10/19 20:00 12/25/19 19:59 12/12/19 21:39 Dextrose (Dextrose 50%) 25 ml Q30M PRN IV Hypoglycemia 12/09/19 20:33 12/24/19 20:32 Dextrose (Dextrose 50%) 50 ml Q30M PRN IV Hypoglycemia 12/09/19 20:33 12/24/19 20:32 Docusate Sodium (Colace) 100 mg THREE TIMES A DAY ORAL 12/10/19 09:00 01/08/20 12:59 12/13/19 12:59 Epoetin Ricky (Epoetin Ricky(ESRD on dialysis)) 10,000 unit THU-THU-THU SUBQ 12/12/19 21:00 01/11/20 20:59 12/12/19 21:39 Heparin Sodium (Porcine) (Heparin 5000 units/ml) 5,000 units EVERY 12 HOURS SUBQ 12/09/19 21:00 01/02/20 21:59 12/13/19 08:40 Hydralazine HCl (Apresoline) 25 mg Q4H PRN ORAL bp over 160 syst 12/09/19 20:37 01/08/20 20:36 Hydralazine HCl (Apresoline) 25 mg Q8H ORAL 12/12/19 10:00 01/11/20 09:59 12/13/19 11:53 Insulin Aspart (NovoLOG) BEFORE MEALS AND HS SUBQ 12/09/19 21:00 01/02/20 21:13 Iron Sucrose 100 mg/Sodium Chloride 55 ml @ 200 mls/hr BEDTIME IV 12/10/19 21:00 12/19/19 21:17 12/12/19 22:52 Isosorbide Dinitrate (Isordil) 20 mg TID GT 12/10/19 09:00 01/01/20 08:59 12/13/19 12:58 Nitroglycerin (Ntg) 0.4 mg Q5M PRN SL Prn Chest Pain 12/09/19 20:30 01/02/20 21:16 Ondansetron HCl (Zofran) 4 mg Q6H PRN IVP Nausea & Vomiting 12/09/19 20:34 01/02/20 20:33 Pantoprazole (Protonix) 40 mg EVERY 12 HOURS ORAL 12/09/19 21:00 01/08/20 20:59 12/13/19 08:44 Polyethylene Glycol (Miralax) 17 gm DAILYPRN PRN NG Constipation 12/09/19 20:34 01/02/20 20:33 Promethazine HCl/ Codeine (Phenergan with Codeine) 5 ml Q4H PRN NG For Cough 12/09/19 20:34 01/02/20 20:33 Sevelamer Carbonate (Renvela) 2,400 mg THREE TIMES A DAY ORAL 12/10/19 09:00 01/07/20 12:59 12/13/19 12:59 Sodium Hypochlorite (Dakin's Quarter Strength) 1 applic DAILY TOPIC 12/10/19 09:00 01/07/20 08:59 12/13/19 08:44 Vancomycin HCl (Vanco rx to dose) 1 ea DAILY PRN MISC Per rx protocol 12/09/19 20:34 01/08/20 20:33 Allergies: Coded Allergies: No Known Allergies (Unverified , 11/24/19) ROS Limited/Unobtainable: No Constitutional: Reports: no symptoms HEENT: Reports: no symptoms Cardiovascular: Reports: no symptoms Respiratory: Reports: no symptoms Gastrointestinal/Abdominal: Reports: no symptoms Genitourinary: Reports: no symptoms Neurologic/Psychiatric: Reports: no symptoms Subjective 59 YO M admitted with respiratory failure. Now pneumonia and sepsis. Cover for Nataly Foote-Dr Ceja. Objective Last Vital Signs Date Time Temp Pulse Resp B/P (MAP) Pulse Ox O2 Delivery O2 Flow Rate FiO2 12/13/19 12:58 124/51 12/13/19 12:00 98.2 73 22 100 12/13/19 09:00 Nasal Cannula 2.0 Nasal Cannula 2.0 Nasal Cannula 2.0 12/13/19 07:45 28 Laboratory Tests Test 12/13/19 04:45 White Blood Count 10.8 K/UL (4.8-10.8) Red Blood Count 2.72 M/UL (4.70-6.10) L Hemoglobin 7.8 G/DL (14.2-18.0) L Hematocrit 23.4 % (42.0-52.0) L Mean Corpuscular Volume 86 FL (80-99) Mean Corpuscular Hemoglobin 28.7 PG (27.0-31.0) Mean Corpuscular Hemoglobin Concent 33.3 G/DL (32.0-36.0) Red Cell Distribution Width 12.6 % (11.6-14.8) Platelet Count 343 K/UL (150-450) Mean Platelet Volume 5.4 FL (6.5-10.1) L Neutrophils (%) (Auto) % (45.0-75.0) Lymphocytes (%) (Auto) % (20.0-45.0) Monocytes (%) (Auto) % (1.0-10.0) Eosinophils (%) (Auto) % (0.0-3.0) Basophils (%) (Auto) % (0.0-2.0) Differential Total Cells Counted 100 Neutrophils % (Manual) 65 % (45-75) Lymphocytes % (Manual) 22 % (20-45) Monocytes % (Manual) 8 % (1-10) Eosinophils % (Manual) 5 % (0-3) H Basophils % (Manual) 0 % (0-2) Band Neutrophils 0 % (0-8) Platelet Estimate Adequate Platelet Morphology Normal Hypochromasia 1+ Sodium Level 136 MMOL/L (136-145) Potassium Level 4.0 MMOL/L (3.5-5.1) Chloride Level 97 MMOL/L (98-107) L Carbon Dioxide Level 26 MMOL/L (21-32) Anion Gap 14 mmol/L (5-15) Blood Urea Nitrogen 54 mg/dL (7-18) H Creatinine 7.2 MG/DL (0.55-1.30) H Estimat Glomerular Filtration Rate 9.6 mL/min (>60) Glucose Level 103 MG/DL (74-106) Calcium Level 8.8 MG/DL (8.5-10.1) Random Vancomycin Level 22.0 ug/mL Intake and Output 12/12/19 12/13/19 19:00 07:00 Intake Total 720 ml 2055 ml Output Total 500 ml Balance 720 ml 1555 ml Intake Oral 720 ml IV Total 55 ml Hemodialysis 2000 ml Output Urine Total 500 ml Objective PHYSICAL EXAMINATION: GENERAL: The patient is a well-developed and well-nourished male, in moderate respiratory distress. HEENT: Eyes, pupils are equal and responsive to light and accommodation. Extraocular movements are intact. NECK: Supple without lymphadenopathy. CHEST: nasal canula; Mechanical breath sounds, otherwise without wheezes or rales. CARDIOVASCULAR: Regular rate. S1 and S2 normal without murmurs, rubs, or gallops. ABDOMEN: Soft, nontender, and nondistended. Positive bowel sounds. No evidence of hepatosplenomegaly. Currently, no rebound or guarding noted. EXTREMITIES: Negative for clubbing, cyanosis, or edema. RECTAL/GENITAL: Refused. NEUROLOGIC: Cranial nerves II through XII are grossly intact without focal deficits. Assessment/Plan Assessment/Plan ASSESSMENT: This is a 59-year-old male. 1. Respiratory failure. 2. Pneumonia=ESBL E. coli 3. Sepsis=staph hominis. 4. Diabetes type 2. 5. Hypertension. 6. Hypercholesterolemia. TREATMENT: 1. Respiratory failure/pneumonia. A Pulmonary consultation has been obtained with Dr. Brandy Milton.Extubated Sputum=ESBL E. Coli. ABX=S/P meropenem. ID=Dr Souza S/P Tamiflu per ID=Dr Andrade. We will follow recommendations of Pulmonary. 2. Sepsis. Blood cultures=Staph Hominis. ABX=vanco 3. Diabetes type 2. A NovoLog sliding scale has been instituted. 4. Hypertension. The patient is currently hypotensive. Hold antihypertensive medication. 5. Hypercholesterolemia. Continue atorvastatin as above. Sidney Galaviz MD Dec 13, 2019 16:56
--- NOTE | 2019-12-13 18:27 | Infectious Diseases Prog Note ---
Assessment/Plan Assessment/Plan Assessment: Septic Shock- SP Pneumonia -12/01 CXR: probably unchanged bilateral diffuse interstitial and airspace disease. -11/30 sp cx:Interim marked worsening of bilateral pulmonary parenchymal disease, over one day -11/29 sp cx ESBL E.coli (S zosyn, Imipenem, bactrim) -11/24 u/a neg; ucx neg Bcx NTD influenza sc neg CXR: Bilateral dense consolidation, likely pneumonia. Pulmonary edema also possible. Correlate with clinical findings sp cx ordered,not done legionella ag urine neg S. hominis bacteremia- RIJ infection vs contamination - SP Perm Cath insertion 12/08 - HD Cath removed on 12/06 - RIJ removed on 12/02 -11/27 Bcx 1/4 S. hominis; 11/29 Bcx 1/ S. hominis (RIJ), NTD x2 (peripheral) Low grade fever , Sp Leukocytosis, improving ARDS Acute respiratory failure s/p intubation 11/24, sp extubation 11/29, now on bipap GANGA on CKD; now on HD 11/27 Elevated LFTs;improving Troponinemia Dm2 Gout s/p L BKA allergic rhinitis CAD s/p stent prosthetic AVR hx of esophagitis PVD chronic sCHF HLD HTN SNF resident Plan: - cont IV Vanco # 9/10 - Sp Meropenem # 10/10 for ESBL E.coli PNA -12/01 SP IV Vancomycin #8, Tamiflu #7 -11/30 SP LEvaquin #7, Cefepime #7 -Monitor CBC/CMP, temperatures -aspiration precautions - BCx x2 Thank you for this consultation. Will continue to follow along with you. Subjective Allergies: Coded Allergies: No Known Allergies (Unverified , 11/24/19) Subjective afebrile Objective Vital Signs Last 24 Hour Vital Signs Date Time Temp Pulse Resp B/P (MAP) Pulse Ox O2 Delivery O2 Flow Rate FiO2 12/13/19 17:49 130/68 12/13/19 17:48 130/68 12/13/19 12:58 124/51 12/13/19 12:00 98.2 73 22 124/51 (75) 100 12/13/19 11:53 124/51 12/13/19 09:00 Nasal Cannula 2.0 Nasal Cannula 2.0 Nasal Cannula 2.0 12/13/19 08:39 165/85 12/13/19 08:38 76 165/85 12/13/19 08:00 98.1 76 20 165/85 (111) 99 12/13/19 07:45 98 Nasal Cannula 2.0 28 12/13/19 04:00 98.0 77 20 130/60 (83) 100 12/13/19 02:22 138/68 12/13/19 00:00 98.1 77 20 138/68 (91) 100 12/12/19 21:45 77 131/61 12/12/19 21:00 Nasal Cannula 2.0 Nasal Cannula 2.0 Nasal Cannula 2.0 12/12/19 20:13 98 Nasal Cannula 2.0 28 12/12/19 20:00 98.1 77 20 131/61 (84) 100 Height (Feet): 5 Height (Inches): 8.00 Weight (Pounds): 225 HEENT: anicteric Respiratory/Chest: normal breath sounds Cardiovascular: regular rhythm Abdomen: no organomegaly Laboratory Tests Test 12/13/19 04:45 White Blood Count 10.8 K/UL (4.8-10.8) Red Blood Count 2.72 M/UL (4.70-6.10) L Hemoglobin 7.8 G/DL (14.2-18.0) L Hematocrit 23.4 % (42.0-52.0) L Mean Corpuscular Volume 86 FL (80-99) Mean Corpuscular Hemoglobin 28.7 PG (27.0-31.0) Mean Corpuscular Hemoglobin Concent 33.3 G/DL (32.0-36.0) Red Cell Distribution Width 12.6 % (11.6-14.8) Platelet Count 343 K/UL (150-450) Mean Platelet Volume 5.4 FL (6.5-10.1) L Neutrophils (%) (Auto) % (45.0-75.0) Lymphocytes (%) (Auto) % (20.0-45.0) Monocytes (%) (Auto) % (1.0-10.0) Eosinophils (%) (Auto) % (0.0-3.0) Basophils (%) (Auto) % (0.0-2.0) Differential Total Cells Counted 100 Neutrophils % (Manual) 65 % (45-75) Lymphocytes % (Manual) 22 % (20-45) Monocytes % (Manual) 8 % (1-10) Eosinophils % (Manual) 5 % (0-3) H Basophils % (Manual) 0 % (0-2) Band Neutrophils 0 % (0-8) Platelet Estimate Adequate Platelet Morphology Normal Hypochromasia 1+ Sodium Level 136 MMOL/L (136-145) Potassium Level 4.0 MMOL/L (3.5-5.1) Chloride Level 97 MMOL/L (98-107) L Carbon Dioxide Level 26 MMOL/L (21-32) Anion Gap 14 mmol/L (5-15) Blood Urea Nitrogen 54 mg/dL (7-18) H Creatinine 7.2 MG/DL (0.55-1.30) H Estimat Glomerular Filtration Rate 9.6 mL/min (>60) Glucose Level 103 MG/DL (74-106) Calcium Level 8.8 MG/DL (8.5-10.1) Random Vancomycin Level 22.0 ug/mL Current Medications Medications (Trade) Dose Ordered Sig/Valeriano Route PRN Reason Start Time Stop Time Status Last Admin Dose Admin Acetaminophen (Tylenol) 650 mg Q4H PRN NG Mild Pain/Temp > 100.5 12/09/19 20:33 01/02/20 20:32 12/13/19 06:10 Carvedilol (Coreg) 12.5 mg EVERY 12 HOURS NG 12/09/19 21:00 01/02/20 21:59 12/13/19 08:38 Chlorhexidine Gluconate (Katia-Hex 2%) 1 applic DAILY@2000 TOPIC 12/10/19 20:00 12/25/19 19:59 12/12/19 21:39 Dextrose (Dextrose 50%) 25 ml Q30M PRN IV Hypoglycemia 12/09/19 20:33 12/24/19 20:32 Dextrose (Dextrose 50%) 50 ml Q30M PRN IV Hypoglycemia 12/09/19 20:33 12/24/19 20:32 Docusate Sodium (Colace) 100 mg THREE TIMES A DAY ORAL 12/10/19 09:00 01/08/20 12:59 12/13/19 17:47 Epoetin Ricky (Epoetin Ricky(ESRD on dialysis)) 10,000 unit THU-THU-THU SUBQ 12/12/19 21:00 01/11/20 20:59 12/12/19 21:39 Heparin Sodium (Porcine) (Heparin 5000 units/ml) 5,000 units EVERY 12 HOURS SUBQ 12/09/19 21:00 01/02/20 21:59 12/13/19 08:40 Hydralazine HCl (Apresoline) 25 mg Q4H PRN ORAL bp over 160 syst 12/09/19 20:37 01/08/20 20:36 Hydralazine HCl (Apresoline) 25 mg Q8H ORAL 12/12/19 10:00 01/11/20 09:59 12/13/19 17:48 Insulin Aspart (NovoLOG) BEFORE MEALS AND HS SUBQ 12/09/19 21:00 01/02/20 21:13 Iron Sucrose 100 mg/Sodium Chloride 55 ml @ 200 mls/hr BEDTIME IV 12/10/19 21:00 12/19/19 21:17 12/12/19 22:52 Isosorbide Dinitrate (Isordil) 20 mg TID GT 12/10/19 09:00 01/01/20 08:59 12/13/19 17:49 Nitroglycerin (Ntg) 0.4 mg Q5M PRN SL Prn Chest Pain 12/09/19 20:30 01/02/20 21:16 Ondansetron HCl (Zofran) 4 mg Q6H PRN IVP Nausea & Vomiting 12/09/19 20:34 01/02/20 20:33 Pantoprazole (Protonix) 40 mg EVERY 12 HOURS ORAL 12/09/19 21:00 01/08/20 20:59 12/13/19 08:44 Polyethylene Glycol (Miralax) 17 gm DAILYPRN PRN NG Constipation 12/09/19 20:34 01/02/20 20:33 Promethazine HCl/ Codeine (Phenergan with Codeine) 5 ml Q4H PRN NG For Cough 12/09/19 20:34 01/02/20 20:33 Sevelamer Carbonate (Renvela) 2,400 mg THREE TIMES A DAY ORAL 12/10/19 09:00 01/07/20 12:59 12/13/19 17:49 Sodium Hypochlorite (Dakin's Quarter Strength) 1 applic DAILY TOPIC 12/10/19 09:00 01/07/20 08:59 12/13/19 08:44 Vancomycin HCl (Vanco rx to dose) 1 ea DAILY PRN MISC Per rx protocol 12/09/19 20:34 01/08/20 20:33 Gabe Bush MD Dec 13, 2019 18:27
--- NOTE | 2019-12-13 19:45 | NUR ---
HAND-OFF: Report given to Daniel.
[2019-12-13 20:00] VITALS: BP 120/62
[2019-12-13] MEDS: Dyna-Hex 2% Top Sol 2oz TOPIC SCH (21:03)
[2019-12-14] VITALS: BP 138/56
--- NOTE | 2019-12-14 | NUR ---
NURSE NOTES: Pt is in bed,awke, alert and orientedX4 Pt.On room NC 2L no complaints of pain and no indications of respiratory distress. Dialysis site on right chest PermCath dressing dry and intact. Bed is low and locked, side rails x2 up, bed alarm active, and call light is in reach. Will continue to monitor.
[2019-12-14] MEDS: HydrALAZINE 25mg tab ORAL SCH ×3 (02:17→18:00)
[2019-12-14 04:00] VITALS: BP_SYST 111; BP_SYST 144; BP_DIAS 63
[2019-12-14] MEDS: NovoLOG Insulin Flexpen SUBQ SCH ×4 (06:30→21:00)
[2019-12-14 06:48] LABS: HEMATOCRIT 21.3 % (42.0-52.0); MEAN CORPUSCULAR VOLUME 86 FL (80-99); PLATELET COUNT 358 K/UL (150-450); RED BLOOD COUNT 2.48 M/UL (4.70-6.10); WHITE BLOOD COUNT 9.5 K/UL (4.8-10.8)
[2019-12-14 07:36] LABS: ALANINE AMINOTRANSFERASE 21 U/L (12-78); ALBUMIN 2.1 G/DL (3.4-5.0); ALBUMIN/GLOBULIN RATIO 0.4 (1.0-2.7); ALKALINE PHOSPHATASE 100 U/L (46-116); ANION GAP 11 mmol/L (5-15); ASPARTATE AMINO TRANSFERASE 28 U/L (15-37); BILIRUBIN,TOTAL 0.3 MG/DL (0.2-1.0); BLOOD UREA NITROGEN 73 mg/dL (7-18); CALCIUM 8.9 MG/DL (8.5-10.1); CARBON DIOXIDE 27 MMOL/L (21-32); CHLORIDE 95 MMOL/L (98-107); CREATININE 8.4 MG/DL (0.55-1.30); PHOSPHORUS 5.5 MG/DL (2.5-4.9); SODIUM 133 MMOL/L (136-145)
--- NOTE | 2019-12-14 07:44 | NUR ---
NURSE NOTES: patient in the bed alert and awake. respiration is even and unlabored on o2 @2l via NC. exchanged greetings with patient. denies any pain and discomfort. right upper chest wall PermCath is in-place. no tenderness, and redness noted on site. no acute distress noted on patient at this time. placed call light within reach.
[2019-12-14 08:00] VITALS: BP 124/55
--- NOTE | 2019-12-14 08:02 | NUR ---
HAND-OFF: Report given to YUKI Buck.
[2019-12-14] MEDS: Docusate 100mg cap ORAL SCH ×3 (08:23→18:06)
[2019-12-14] MEDS: Heparin 5000 units/ml inj SUBQ SCH ×2 (08:26→21:00)
[2019-12-14] MEDS: Dakin's 0.125% Soln (Quarter Strength) 16oz TOPIC SCH (08:28)
--- NOTE | 2019-12-14 08:55 | Infectious Diseases Prog Note ---
Assessment/Plan Assessment/Plan Assessment: Septic Shock- SP Pneumonia -12/01 CXR: probably unchanged bilateral diffuse interstitial and airspace disease. -11/30 sp cx:Interim marked worsening of bilateral pulmonary parenchymal disease, over one day -11/29 sp cx ESBL E.coli (S zosyn, Imipenem, bactrim) -11/24 u/a neg; ucx neg Bcx NTD influenza sc neg CXR: Bilateral dense consolidation, likely pneumonia. Pulmonary edema also possible. Correlate with clinical findings sp cx ordered,not done legionella ag urine neg S. hominis bacteremia- RIJ infection vs contamination - SP Perm Cath insertion 12/08 - HD Cath removed on 12/06 - RIJ removed on 12/02 -11/27 Bcx 1/ S. hominis; 11/29 Bcx 1/ S. hominis (RIJ), NTD x2 (peripheral) Low grade fever , Sp Leukocytosis, improving ARDS Acute respiratory failure s/p intubation 11/24, sp extubation 11/29, now on bipap GANGA on CKD; now on HD 11/27 Elevated LFTs;improving Troponinemia Dm2 Gout s/p L BKA allergic rhinitis CAD s/p stent prosthetic AVR hx of esophagitis PVD chronic sCHF HLD HTN SNF resident Plan: - DC IV Vanco # 10/10 - Sp Meropenem # 10/10 for ESBL E.coli PNA -12/01 SP IV Vancomycin #8, Tamiflu #7 -11/30 SP LEvaquin #7, Cefepime #7 -Monitor CBC/CMP, temperatures -aspiration precautions - BCx x2 Thank you for this consultation. Will continue to follow along with you. Subjective Allergies: Coded Allergies: No Known Allergies (Unverified , 11/24/19) Subjective no acute event Objective Vital Signs Last 24 Hour Vital Signs Date Time Temp Pulse Resp B/P (MAP) Pulse Ox O2 Delivery O2 Flow Rate FiO2 12/14/19 08:00 97.5 77 18 124/55 (78) 100 12/14/19 04:00 97.4 79 18 111/63 (79) 97 12/14/19 02:17 126/61 12/14/19 00:00 97.7 72 18 138/56 (83) 97 12/13/19 21:04 78 120/62 12/13/19 21:00 Nasal Cannula 2.0 Nasal Cannula 2.0 Nasal Cannula 2.0 12/13/19 20:00 98.3 78 18 120/62 (81) 99 12/13/19 19:50 99 Nasal Cannula 2.0 28 12/13/19 17:49 130/68 12/13/19 17:48 130/68 12/13/19 16:00 98.0 77 22 130/68 (88) 99 12/13/19 12:58 124/51 12/13/19 12:00 98.2 73 22 124/51 (75) 100 12/13/19 11:53 124/51 12/13/19 09:00 Nasal Cannula 2.0 Nasal Cannula 2.0 Nasal Cannula 2.0 Height (Feet): 5 Height (Inches): 8.00 Weight (Pounds): 220 HEENT: anicteric Respiratory/Chest: normal breath sounds Cardiovascular: normal rate Abdomen: no organomegaly Laboratory Tests Test 12/14/19 05:40 White Blood Count 9.5 K/UL (4.8-10.8) Red Blood Count 2.48 M/UL (4.70-6.10) L Hemoglobin 7.0 G/DL (14.2-18.0) L Hematocrit 21.3 % (42.0-52.0) L Mean Corpuscular Volume 86 FL (80-99) Mean Corpuscular Hemoglobin 28.3 PG (27.0-31.0) Mean Corpuscular Hemoglobin Concent 32.9 G/DL (32.0-36.0) Red Cell Distribution Width 13.0 % (11.6-14.8) Platelet Count 358 K/UL (150-450) Mean Platelet Volume 5.4 FL (6.5-10.1) L Neutrophils (%) (Auto) % (45.0-75.0) Lymphocytes (%) (Auto) % (20.0-45.0) Monocytes (%) (Auto) % (1.0-10.0) Eosinophils (%) (Auto) % (0.0-3.0) Basophils (%) (Auto) % (0.0-2.0) Neutrophils % (Manual) Pending Lymphocytes % (Manual) Pending Platelet Estimate Pending Platelet Morphology Pending Sodium Level 133 MMOL/L (136-145) L Potassium Level 4.0 MMOL/L (3.5-5.1) Chloride Level 95 MMOL/L (98-107) L Carbon Dioxide Level 27 MMOL/L (21-32) Anion Gap 11 mmol/L (5-15) Blood Urea Nitrogen 73 mg/dL (7-18) H Creatinine 8.4 MG/DL (0.55-1.30) H Estimat Glomerular Filtration Rate 8.0 mL/min (>60) Glucose Level 93 MG/DL (74-106) Uric Acid 6.1 MG/DL (2.6-7.2) Calcium Level 8.9 MG/DL (8.5-10.1) Phosphorus Level 5.5 MG/DL (2.5-4.9) H Magnesium Level 2.1 MG/DL (1.8-2.4) Total Bilirubin 0.3 MG/DL (0.2-1.0) Aspartate Amino Transf (AST/SGOT) 28 U/L (15-37) Alanine Aminotransferase (ALT/SGPT) 21 U/L (12-78) Alkaline Phosphatase 100 U/L (46-116) C-Reactive Protein, Quantitative 7.2 mg/dL (0.00-0.90) H Pro-B-Type Natriuretic Peptide 6311 pg/mL (0-125) H Total Protein 6.8 G/DL (6.4-8.2) Albumin 2.1 G/DL (3.4-5.0) L Globulin 4.7 g/dL Albumin/Globulin Ratio 0.4 (1.0-2.7) L Current Medications Medications (Trade) Dose Ordered Sig/Valeriano Route PRN Reason Start Time Stop Time Status Last Admin Dose Admin Acetaminophen (Tylenol) 650 mg Q4H PRN NG Mild Pain/Temp > 100.5 12/09/19 20:33 01/02/20 20:32 12/13/19 06:10 Carvedilol (Coreg) 12.5 mg EVERY 12 HOURS NG 12/09/19 21:00 01/02/20 21:59 12/13/19 21:04 Chlorhexidine Gluconate (Katia-Hex 2%) 1 applic DAILY@1999 TOPIC 12/10/19 20:00 12/25/19 19:59 12/13/19 21:03 Dextrose (Dextrose 50%) 25 ml Q30M PRN IV Hypoglycemia 12/09/19 20:33 12/24/19 20:32 Dextrose (Dextrose 50%) 50 ml Q30M PRN IV Hypoglycemia 12/09/19 20:33 12/24/19 20:32 Docusate Sodium (Colace) 100 mg THREE TIMES A DAY ORAL 12/10/19 09:00 01/08/20 12:59 12/14/19 08:23 Epoetin Ricky (Epoetin Ricky(ESRD on dialysis)) 10,000 unit THU-THU-THU SUBQ 12/12/19 21:00 01/11/20 20:59 12/12/19 21:39 Heparin Sodium (Porcine) (Heparin 5000 units/ml) 5,000 units EVERY 12 HOURS SUBQ 12/09/19 21:00 01/02/20 21:59 12/14/19 08:26 Hydralazine HCl (Apresoline) 25 mg Q4H PRN ORAL bp over 160 syst 12/09/19 20:37 01/08/20 20:36 Hydralazine HCl (Apresoline) 25 mg Q8H ORAL 12/12/19 10:00 01/11/20 09:59 12/14/19 02:17 Insulin Aspart (NovoLOG) BEFORE MEALS AND HS SUBQ 12/09/19 21:00 01/02/20 21:13 Iron Sucrose 100 mg/Sodium Chloride 55 ml @ 200 mls/hr BEDTIME IV 12/10/19 21:00 12/19/19 21:17 12/13/19 21:04 Isosorbide Dinitrate (Isordil) 20 mg TID GT 12/10/19 09:00 01/01/20 08:59 12/13/19 17:49 Nitroglycerin (Ntg) 0.4 mg Q5M PRN SL Prn Chest Pain 12/09/19 20:30 01/02/20 21:16 Ondansetron HCl (Zofran) 4 mg Q6H PRN IVP Nausea & Vomiting 12/09/19 20:34 01/02/20 20:33 Pantoprazole (Protonix) 40 mg EVERY 12 HOURS ORAL 12/09/19 21:00 01/08/20 20:59 12/14/19 08:23 Polyethylene Glycol (Miralax) 17 gm DAILYPRN PRN NG Constipation 12/09/19 20:34 01/02/20 20:33 Promethazine HCl/ Codeine (Phenergan with Codeine) 5 ml Q4H PRN NG For Cough 12/09/19 20:34 01/02/20 20:33 Sevelamer Carbonate (Renvela) 2,400 mg THREE TIMES A DAY ORAL 12/10/19 09:00 01/07/20 12:59 12/14/19 08:23 Sodium Hypochlorite (Dakin's Quarter Strength) 1 applic DAILY TOPIC 12/10/19 09:00 01/07/20 08:59 12/14/19 08:28 Vancomycin HCl (Vanco rx to dose) 1 ea DAILY PRN MISC Per rx protocol 12/09/19 20:34 01/08/20 20:33 Gabe Bush MD Dec 14, 2019 08:55
[2019-12-14] MEDS: Carvedilol 12.5mg tab NG SCH ×2 (09:00→21:00)
[2019-12-14 12:00] VITALS: BP 134/61
--- NOTE | 2019-12-14 12:55 | Internal Med Progress Note ---
Subjective Date of Service: Dec 14, 2019 Physician Name GalavizSidney Attending Physician Cezar Ceja MD Current Medications Medications (Trade) Dose Ordered Sig/Valeriano Route PRN Reason Start Time Stop Time Status Last Admin Dose Admin Acetaminophen (Tylenol) 650 mg Q4H PRN NG Mild Pain/Temp > 100.5 12/09/19 20:33 01/02/20 20:32 12/13/19 06:10 Carvedilol (Coreg) 12.5 mg EVERY 12 HOURS NG 12/09/19 21:00 01/02/20 21:59 12/13/19 21:04 Chlorhexidine Gluconate (Katia-Hex 2%) 1 applic DAILY@1999 TOPIC 12/10/19 20:00 12/25/19 19:59 12/13/19 21:03 Dextrose (Dextrose 50%) 25 ml Q30M PRN IV Hypoglycemia 12/09/19 20:33 12/24/19 20:32 Dextrose (Dextrose 50%) 50 ml Q30M PRN IV Hypoglycemia 12/09/19 20:33 12/24/19 20:32 Docusate Sodium (Colace) 100 mg THREE TIMES A DAY ORAL 12/10/19 09:00 01/08/20 12:59 12/14/19 12:34 Epoetin Ricky (Epoetin Ricky(ESRD on dialysis)) 10,000 unit THU-THU-THU SUBQ 12/12/19 21:00 01/11/20 20:59 12/12/19 21:39 Heparin Sodium (Porcine) (Heparin 5000 units/ml) 5,000 units EVERY 12 HOURS SUBQ 12/09/19 21:00 01/02/20 21:59 12/14/19 08:26 Hydralazine HCl (Apresoline) 25 mg Q4H PRN ORAL bp over 160 syst 12/09/19 20:37 01/08/20 20:36 Hydralazine HCl (Apresoline) 25 mg Q8H ORAL 12/12/19 10:00 01/11/20 09:59 12/14/19 02:17 Insulin Aspart (NovoLOG) BEFORE MEALS AND HS SUBQ 12/09/19 21:00 01/02/20 21:13 Iron Sucrose 100 mg/Sodium Chloride 55 ml @ 200 mls/hr BEDTIME IV 12/10/19 21:00 12/19/19 21:17 12/13/19 21:04 Isosorbide Dinitrate (Isordil) 20 mg TID GT 12/10/19 09:00 01/01/20 08:59 12/13/19 17:49 Nitroglycerin (Ntg) 0.4 mg Q5M PRN SL Prn Chest Pain 12/09/19 20:30 01/02/20 21:16 Ondansetron HCl (Zofran) 4 mg Q6H PRN IVP Nausea & Vomiting 12/09/19 20:34 01/02/20 20:33 Pantoprazole (Protonix) 40 mg EVERY 12 HOURS ORAL 12/09/19 21:00 01/08/20 20:59 12/14/19 08:23 Polyethylene Glycol (Miralax) 17 gm DAILYPRN PRN NG Constipation 12/09/19 20:34 01/02/20 20:33 Promethazine HCl/ Codeine (Phenergan with Codeine) 5 ml Q4H PRN NG For Cough 12/09/19 20:34 01/02/20 20:33 Sevelamer Carbonate (Renvela) 2,400 mg THREE TIMES A DAY ORAL 12/10/19 09:00 01/07/20 12:59 12/14/19 12:34 Sodium Hypochlorite (Dakin's Quarter Strength) 1 applic DAILY TOPIC 12/10/19 09:00 01/07/20 08:59 12/14/19 08:28 Allergies: Coded Allergies: No Known Allergies (Unverified , 11/24/19) ROS Limited/Unobtainable: No Constitutional: Reports: no symptoms HEENT: Reports: no symptoms Cardiovascular: Reports: no symptoms Respiratory: Reports: shortness of breath Gastrointestinal/Abdominal: Reports: no symptoms Genitourinary: Reports: no symptoms Neurologic/Psychiatric: Reports: no symptoms Subjective 59 YO M admitted with respiratory failure. Now pneumonia and sepsis. Cover for Nataly Foote-Dr Ceja. Objective Last Vital Signs Date Time Temp Pulse Resp B/P (MAP) Pulse Ox O2 Delivery O2 Flow Rate FiO2 12/14/19 12:00 97.7 81 18 134/61 (85) 98 12/14/19 09:00 Nasal Cannula 2.0 Nasal Cannula 2.0 Nasal Cannula 2.0 12/13/19 19:50 28 Laboratory Tests Test 12/14/19 05:40 White Blood Count 9.5 K/UL (4.8-10.8) Red Blood Count 2.48 M/UL (4.70-6.10) L Hemoglobin 7.0 G/DL (14.2-18.0) L Hematocrit 21.3 % (42.0-52.0) L Mean Corpuscular Volume 86 FL (80-99) Mean Corpuscular Hemoglobin 28.3 PG (27.0-31.0) Mean Corpuscular Hemoglobin Concent 32.9 G/DL (32.0-36.0) Red Cell Distribution Width 13.0 % (11.6-14.8) Platelet Count 358 K/UL (150-450) Mean Platelet Volume 5.4 FL (6.5-10.1) L Neutrophils (%) (Auto) % (45.0-75.0) Lymphocytes (%) (Auto) % (20.0-45.0) Monocytes (%) (Auto) % (1.0-10.0) Eosinophils (%) (Auto) % (0.0-3.0) Basophils (%) (Auto) % (0.0-2.0) Neutrophils % (Manual) Pending Lymphocytes % (Manual) Pending Platelet Estimate Pending Platelet Morphology Pending Sodium Level 133 MMOL/L (136-145) L Potassium Level 4.0 MMOL/L (3.5-5.1) Chloride Level 95 MMOL/L (98-107) L Carbon Dioxide Level 27 MMOL/L (21-32) Anion Gap 11 mmol/L (5-15) Blood Urea Nitrogen 73 mg/dL (7-18) H Creatinine 8.4 MG/DL (0.55-1.30) H Estimat Glomerular Filtration Rate 8.0 mL/min (>60) Glucose Level 93 MG/DL (74-106) Uric Acid 6.1 MG/DL (2.6-7.2) Calcium Level 8.9 MG/DL (8.5-10.1) Phosphorus Level 5.5 MG/DL (2.5-4.9) H Magnesium Level 2.1 MG/DL (1.8-2.4) Total Bilirubin 0.3 MG/DL (0.2-1.0) Aspartate Amino Transf (AST/SGOT) 28 U/L (15-37) Alanine Aminotransferase (ALT/SGPT) 21 U/L (12-78) Alkaline Phosphatase 100 U/L (46-116) C-Reactive Protein, Quantitative 7.2 mg/dL (0.00-0.90) H Pro-B-Type Natriuretic Peptide 6311 pg/mL (0-125) H Total Protein 6.8 G/DL (6.4-8.2) Albumin 2.1 G/DL (3.4-5.0) L Globulin 4.7 g/dL Albumin/Globulin Ratio 0.4 (1.0-2.7) L Intake and Output 12/13/19 12/14/19 19:00 07:00 Intake Total 200 ml 120 ml Balance 200 ml 120 ml Intake Oral 200 ml Blood Product 120 ml Objective PHYSICAL EXAMINATION: GENERAL: The patient is a well-developed and well-nourished male, in moderate respiratory distress. HEENT: Eyes, pupils are equal and responsive to light and accommodation. Extraocular movements are intact. NECK: Supple without lymphadenopathy. CHEST: nasal canula; Mechanical breath sounds, otherwise without wheezes or rales. CARDIOVASCULAR: Regular rate. S1 and S2 normal without murmurs, rubs, or gallops. ABDOMEN: Soft, nontender, and nondistended. Positive bowel sounds. No evidence of hepatosplenomegaly. Currently, no rebound or guarding noted. EXTREMITIES: Negative for clubbing, cyanosis, or edema. RECTAL/GENITAL: Refused. NEUROLOGIC: Cranial nerves II through XII are grossly intact without focal deficits. Assessment/Plan Assessment/Plan ASSESSMENT: This is a 59-year-old male. 1. Respiratory failure. 2. Pneumonia=ESBL E. coli 3. Sepsis=staph hominis. 4. Diabetes type 2. 5. Hypertension. 6. Hypercholesterolemia. TREATMENT: 1. Respiratory failure/pneumonia. A Pulmonary consultation has been obtained with Dr. Brandy Milton.Extubated Sputum=ESBL E. Coli. ABX=S/P meropenem. ID=Dr Souza S/P Tamiflu per ID=Dr Andrade. We will follow recommendations of Pulmonary. 2. Sepsis. Blood cultures=Staph Hominis. ABX=S/P vanco 3. Diabetes type 2. A NovoLog sliding scale has been instituted. 4. Hypertension. The patient is currently hypotensive. Hold antihypertensive medication. 5. Hypercholesterolemia. Continue atorvastatin as above. Sidney Galaviz MD Dec 14, 2019 12:55
--- NOTE | 2019-12-14 13:03 | Pulmonology Progress Note ---
Assessment/Plan Problems: (1) Acute respiratory failure Assessment & Plan: resolved (2) ESRD (end stage renal disease) (3) Septic shock Assessment & Plan: resolved (4) Chronic systolic heart failure (5) History of hypertension (6) Diabetes mellitus (7) History of left below knee amputation (8) History of gout Assessment/Plan getting ready to be discharged repeat cultures titrate fio2 to sat of 92% check cultures DC planning Subjective ROS Limited/Unobtainable: No Constitutional: Reports: no symptoms HEENT: Repors: no symptoms Respiratory: Reports: no symptoms Allergies: Coded Allergies: No Known Allergies (Unverified , 11/24/19) Objective Last 24 Hour Vital Signs Date Time Temp Pulse Resp B/P (MAP) Pulse Ox O2 Delivery O2 Flow Rate FiO2 12/14/19 12:00 97.7 81 18 134/61 (85) 98 12/14/19 10:00 124/55 12/14/19 09:00 Nasal Cannula 2.0 Nasal Cannula 2.0 Nasal Cannula 2.0 12/14/19 09:00 124/55 12/14/19 09:00 77 124/55 12/14/19 08:00 97.5 77 18 124/55 (78) 100 12/14/19 04:00 97.4 79 18 111/63 (79) 97 12/14/19 02:17 126/61 12/14/19 00:00 97.7 72 18 138/56 (83) 97 12/13/19 21:04 78 120/62 12/13/19 21:00 Nasal Cannula 2.0 Nasal Cannula 2.0 Nasal Cannula 2.0 12/13/19 20:00 98.3 78 18 120/62 (81) 99 12/13/19 19:50 99 Nasal Cannula 2.0 28 12/13/19 17:49 130/68 12/13/19 17:48 130/68 12/13/19 16:00 98.0 77 22 130/68 (88) 99 Intake and Output 12/13/19 12/14/19 19:00 07:00 Intake Total 200 ml 120 ml Balance 200 ml 120 ml Intake Oral 200 ml Blood Product 120 ml General Appearance: WD/WN HEENT: normocephalic, atraumatic, anicteric Respiratory/Chest: chest wall non-tender, lungs clear Cardiovascular: normal peripheral pulses, regular rhythm Abdomen: normal bowel sounds, no organomegaly Genitourinary: normal external genitalia Extremities: no clubbing Skin: no rash Laboratory Tests 12/14/19 05:40: White Blood Count 9.5, Red Blood Count 2.48L, Hemoglobin 7.0L, Hematocrit 21.3L , Mean Corpuscular Volume 86, Mean Corpuscular Hemoglobin 28.3, Mean Corpuscular Hemoglobin Concent 32.9, Red Cell Distribution Width 13.0, Platelet Count 358, Mean Platelet Volume 5.4L, Neutrophils (%) (Auto) , Lymphocytes (%) ( Auto) , Monocytes (%) (Auto) , Eosinophils (%) (Auto) , Basophils (%) (Auto) , Neutrophils % (Manual) [Pending], Lymphocytes % (Manual) [Pending], Platelet Estimate [Pending], Platelet Morphology [Pending], Sodium Level 133L, Potassium Level 4.0, Chloride Level 95L, Carbon Dioxide Level 27, Anion Gap 11, Blood Urea Nitrogen 73H, Creatinine 8.4H, Estimat Glomerular Filtration Rate 8.0, Glucose Level 93, Uric Acid 6.1, Calcium Level 8.9, Phosphorus Level 5.5H, Magnesium Level 2.1, Total Bilirubin 0.3, Aspartate Amino Transf (AST/SGOT) 28, Alanine Aminotransferase (ALT/SGPT) 21, Alkaline Phosphatase 100, C-Reactive Protein, Quantitative 7.2H, Pro-B-Type Natriuretic Peptide 6311H, Total Protein 6.8, Albumin 2.1L, Globulin 4.7, Albumin/Globulin Ratio 0.4L Current Medications Medications (Trade) Dose Ordered Sig/Valeriano Route PRN Reason Start Time Stop Time Status Last Admin Dose Admin Acetaminophen (Tylenol) 650 mg Q4H PRN NG Mild Pain/Temp > 100.5 12/09/19 20:33 01/02/20 20:32 12/13/19 06:10 Carvedilol (Coreg) 12.5 mg EVERY 12 HOURS NG 12/09/19 21:00 01/02/20 21:59 12/13/19 21:04 Chlorhexidine Gluconate (Katia-Hex 2%) 1 applic DAILY@2000 TOPIC 12/10/19 20:00 12/25/19 19:59 12/13/19 21:03 Dextrose (Dextrose 50%) 25 ml Q30M PRN IV Hypoglycemia 12/09/19 20:33 12/24/19 20:32 Dextrose (Dextrose 50%) 50 ml Q30M PRN IV Hypoglycemia 12/09/19 20:33 12/24/19 20:32 Docusate Sodium (Colace) 100 mg THREE TIMES A DAY ORAL 12/10/19 09:00 01/08/20 12:59 12/14/19 12:34 Epoetin Ricky (Epoetin Ricky(ESRD on dialysis)) 10,000 unit THU-THU-THU SUBQ 12/12/19 21:00 01/11/20 20:59 12/12/19 21:39 Heparin Sodium (Porcine) (Heparin 5000 units/ml) 5,000 units EVERY 12 HOURS SUBQ 12/09/19 21:00 01/02/20 21:59 12/14/19 08:26 Hydralazine HCl (Apresoline) 25 mg Q4H PRN ORAL bp over 160 syst 12/09/19 20:37 01/08/20 20:36 Hydralazine HCl (Apresoline) 25 mg Q8H ORAL 12/12/19 10:00 01/11/20 09:59 12/14/19 02:17 Insulin Aspart (NovoLOG) BEFORE MEALS AND HS SUBQ 12/09/19 21:00 01/02/20 21:13 Iron Sucrose 100 mg/Sodium Chloride 55 ml @ 200 mls/hr BEDTIME IV 12/10/19 21:00 12/19/19 21:17 12/13/19 21:04 Isosorbide Dinitrate (Isordil) 20 mg TID GT 12/10/19 09:00 01/01/20 08:59 12/13/19 17:49 Nitroglycerin (Ntg) 0.4 mg Q5M PRN SL Prn Chest Pain 12/09/19 20:30 01/02/20 21:16 Ondansetron HCl (Zofran) 4 mg Q6H PRN IVP Nausea & Vomiting 12/09/19 20:34 01/02/20 20:33 Pantoprazole (Protonix) 40 mg EVERY 12 HOURS ORAL 12/09/19 21:00 01/08/20 20:59 12/14/19 08:23 Polyethylene Glycol (Miralax) 17 gm DAILYPRN PRN NG Constipation 12/09/19 20:34 01/02/20 20:33 Promethazine HCl/ Codeine (Phenergan with Codeine) 5 ml Q4H PRN NG For Cough 12/09/19 20:34 01/02/20 20:33 Sevelamer Carbonate (Renvela) 2,400 mg THREE TIMES A DAY ORAL 12/10/19 09:00 01/07/20 12:59 12/14/19 12:34 Sodium Hypochlorite (Dakin's Quarter Strength) 1 applic DAILY TOPIC 12/10/19 09:00 01/07/20 08:59 12/14/19 08:28 Brandy Milton MD Dec 14, 2019 13:03
--- NOTE | 2019-12-14 14:50 | Surgery Progress Note ---
Surgery Progress Note Subjective Procedure Performed Right femoral temporary hemodialysis catheter removal Symptoms: tolerating diet Additional Comments no acute events comfortable stable labs reviewed states feels well and wants to go soon Objective Last 24 Hour Vital Signs Date Time Temp Pulse Resp B/P (MAP) Pulse Ox O2 Delivery O2 Flow Rate FiO2 12/14/19 13:00 134/61 12/14/19 12:00 97.7 81 18 134/61 (85) 98 12/14/19 10:00 124/55 12/14/19 09:00 Nasal Cannula 2.0 Nasal Cannula 2.0 Nasal Cannula 2.0 12/14/19 09:00 124/55 12/14/19 09:00 77 124/55 12/14/19 08:00 97.5 77 18 124/55 (78) 100 12/14/19 04:00 97.4 79 18 111/63 (79) 97 12/14/19 02:17 126/61 12/14/19 00:00 97.7 72 18 138/56 (83) 97 12/13/19 21:04 78 120/62 12/13/19 21:00 Nasal Cannula 2.0 Nasal Cannula 2.0 Nasal Cannula 2.0 12/13/19 20:00 98.3 78 18 120/62 (81) 99 12/13/19 19:50 99 Nasal Cannula 2.0 28 12/13/19 17:49 130/68 12/13/19 17:48 130/68 12/13/19 16:00 98.0 77 22 130/68 (88) 99 I&O Intake and Output 12/13/19 12/14/19 19:00 07:00 Intake Total 200 ml 120 ml Balance 200 ml 120 ml Intake Oral 200 ml Blood Product 120 ml Dressing: other Wound: clean, other Drains: other Cardiovascular: RSR Respiratory: decreased breath sounds Abdomen: soft, non-tender, present bowel sounds, non-distended Extremities: no cyanosis Laboratory Tests Test 12/14/19 05:40 White Blood Count 9.5 K/UL (4.8-10.8) Red Blood Count 2.48 M/UL (4.70-6.10) L Hemoglobin 7.0 G/DL (14.2-18.0) L Hematocrit 21.3 % (42.0-52.0) L Mean Corpuscular Volume 86 FL (80-99) Mean Corpuscular Hemoglobin 28.3 PG (27.0-31.0) Mean Corpuscular Hemoglobin Concent 32.9 G/DL (32.0-36.0) Red Cell Distribution Width 13.0 % (11.6-14.8) Platelet Count 358 K/UL (150-450) Mean Platelet Volume 5.4 FL (6.5-10.1) L Neutrophils (%) (Auto) % (45.0-75.0) Lymphocytes (%) (Auto) % (20.0-45.0) Monocytes (%) (Auto) % (1.0-10.0) Eosinophils (%) (Auto) % (0.0-3.0) Basophils (%) (Auto) % (0.0-2.0) Neutrophils % (Manual) Pending Lymphocytes % (Manual) Pending Platelet Estimate Pending Platelet Morphology Pending Sodium Level 133 MMOL/L (136-145) L Potassium Level 4.0 MMOL/L (3.5-5.1) Chloride Level 95 MMOL/L (98-107) L Carbon Dioxide Level 27 MMOL/L (21-32) Anion Gap 11 mmol/L (5-15) Blood Urea Nitrogen 73 mg/dL (7-18) H Creatinine 8.4 MG/DL (0.55-1.30) H Estimat Glomerular Filtration Rate 8.0 mL/min (>60) Glucose Level 93 MG/DL (74-106) Uric Acid 6.1 MG/DL (2.6-7.2) Calcium Level 8.9 MG/DL (8.5-10.1) Phosphorus Level 5.5 MG/DL (2.5-4.9) H Magnesium Level 2.1 MG/DL (1.8-2.4) Total Bilirubin 0.3 MG/DL (0.2-1.0) Aspartate Amino Transf (AST/SGOT) 28 U/L (15-37) Alanine Aminotransferase (ALT/SGPT) 21 U/L (12-78) Alkaline Phosphatase 100 U/L (46-116) C-Reactive Protein, Quantitative 7.2 mg/dL (0.00-0.90) H Pro-B-Type Natriuretic Peptide 6311 pg/mL (0-125) H Total Protein 6.8 G/DL (6.4-8.2) Albumin 2.1 G/DL (3.4-5.0) L Globulin 4.7 g/dL Albumin/Globulin Ratio 0.4 (1.0-2.7) L Plan Problems: (1) Septic shock Assessment & Plan: Patient in septic shock prior central line and pressors intubated on vent support in the intensive care unit tachycardic. Renal insufficiency requiring hemodialysis. Temporary hemodialysis catheter indicated and recommended Please see procedure note Dialysis as per nephrology IV antibiotics post per infectious disease Dressing changes as per protocol We will monitor site for hematoma or infection No further acute surgical intervention recommended at this time will follow with recommendations thank you for let me participate patient's care extubated improved downgraded discussed care plan with family consent obtained improved cath in place doing better d/c planning (2) Acute respiratory failure Assessment & Plan: DAILY ESTIMATED NEEDS: Needs based on Critical care, sepsis 75kg adj 22-28 kcals/kg 8567-8467 total kcals 1.2-2 g protein/kg 90-150 g total protein 25-30 mL/kg 1258-2490 total fluid mLs NUTRITION DIAGNOSIS: Swallowing difficulty r/t resp status as evidenced by septic shock now s/p intubation, w/ NGT, NPO at this time. ENTERAL NUTRITION RECOMMENDATIONS: Nepro @40ml/hr x24 hrs + Prosource BID to provide 960ml, 78g + 22 g pro, 698ml free H2O - As medically appropriate, rec non oral feeds via NGT - Start Nepro @20ml/hr for 6 hrs. Advance as tolerated 10ml/hr q4-6 hrs to goal. - Add Prosource BID to better meet est pro needs - Flush per HOB over 30 degrees -------- ADDITIONAL RECOMMENDATIONS: 1) Tf recs as above, feed as medically able 2) Ad PROSOURCE VIA NGT BID to better meet est pro needs 3) Per SNF: 69inches tall, last wt of 210 lbs (2/3) -> rec weekly calibrated bed scale wts 4) [employer] eval upon extubation (3) Sepsis Assessment & Plan: Tunneled right permacath placed (4) History of left below knee amputation Assessment & Plan: Wound stable dressings intact elevate with pillow This patient is improving he spent some time with him at the bedside. We turned him to the right lateral decubitus and evaluated the wound. Fortunately what was considered to be a stage IV wound is actually not and a significant amount of the necrotic tissues actually buildup of hair and dried skin protectant. A fair amount of time was spent doing non-excisional debridement with gauze and moist saline until the area was fully cleaned. Identified was a stage II skin breakdown mainly epidermis that looked like necrotic eschar but fortunately was just epidermis and underlying healthy viable dermis with back bleeding. Wound was cleansed and total edges were identified and intact minimal tenderness on palpation good blanching tissue noted surrounding it. Thera honey placed followed by gauze dressing and foam dressing. Discussed care plan with patient. He is very compliant with turning and states he will remain off his mind will stay off his sacrum as much as possible will follow with recommendations. For now Thera honey impregnated gauze and foam dressing. Turn every 2 hours. Nutritional optimization. Ranjit Ralph Dec 14, 2019 14:50
--- NOTE | 2019-12-14 15:19 | Nephrology Progress Note ---
Assessment/Plan Problem List: (1) ARF (acute renal failure) (2) Acute respiratory failure (3) Septic shock (4) Anemia (5) History of hypertension (6) Diabetes mellitus (7) Acute on chronic systolic heart failure Assessment: ej Fx 40 Assessment Acute renal failure- ? Underlying CKD Respiratory failure Anemia Sepsis / Shock ? Pneumonia DM HTN by history Gout left BKA Cardiomyopathy - Ej Fx 40% Plan Plan: Monitor hemoglobin and hematocrit. Transfusion as needed. Has permacath- dialysis next 12/13 DC quiñones ? Transfuse as needed phos binders Adjust blood pressure medications. was transfused previously on coreg hydralazine previously DC Hydrocortisone Antibiotics urine studies avoid nephrotoxics monitor renal parameters Anemia hairston per orders Subjective ROS Limited/Unobtainable: No Constitutional: Reports: malaise, weakness Objective Objective Last 24 Hour Vital Signs Date Time Temp Pulse Resp B/P (MAP) Pulse Ox O2 Delivery O2 Flow Rate FiO2 12/14/19 13:00 134/61 12/14/19 12:00 97.7 81 18 134/61 (85) 98 12/14/19 10:00 124/55 12/14/19 09:00 Nasal Cannula 2.0 Nasal Cannula 2.0 Nasal Cannula 2.0 12/14/19 09:00 124/55 12/14/19 09:00 77 124/55 12/14/19 08:00 97.5 77 18 124/55 (78) 100 12/14/19 04:00 97.4 79 18 111/63 (79) 97 12/14/19 02:17 126/61 12/14/19 00:00 97.7 72 18 138/56 (83) 97 12/13/19 21:04 78 120/62 12/13/19 21:00 Nasal Cannula 2.0 Nasal Cannula 2.0 Nasal Cannula 2.0 12/13/19 20:00 98.3 78 18 120/62 (81) 99 12/13/19 19:50 99 Nasal Cannula 2.0 28 12/13/19 17:49 130/68 12/13/19 17:48 130/68 12/13/19 16:00 98.0 77 22 130/68 (88) 99 Intake and Output 12/13/19 12/14/19 19:00 07:00 Intake Total 200 ml 120 ml Balance 200 ml 120 ml Intake Oral 200 ml Blood Product 120 ml Laboratory Tests 12/14/19 05:40: White Blood Count 9.5, Red Blood Count 2.48L, Hemoglobin 7.0L, Hematocrit 21.3L , Mean Corpuscular Volume 86, Mean Corpuscular Hemoglobin 28.3, Mean Corpuscular Hemoglobin Concent 32.9, Red Cell Distribution Width 13.0, Platelet Count 358, Mean Platelet Volume 5.4L, Neutrophils (%) (Auto) , Lymphocytes (%) ( Auto) , Monocytes (%) (Auto) , Eosinophils (%) (Auto) , Basophils (%) (Auto) , Differential Total Cells Counted 100, Neutrophils % (Manual) 71, Lymphocytes % ( Manual) 20, Monocytes % (Manual) 5, Eosinophils % (Manual) 3, Basophils % ( Manual) 1, Band Neutrophils 0, Platelet Estimate Adequate, Platelet Morphology Normal, Hypochromasia 2+, Sodium Level 133L, Potassium Level 4.0, Chloride Level 95L, Carbon Dioxide Level 27, Anion Gap 11, Blood Urea Nitrogen 73H, Creatinine 8.4H, Estimat Glomerular Filtration Rate 8.0, Glucose Level 93, Uric Acid 6.1, Calcium Level 8.9, Phosphorus Level 5.5H, Magnesium Level 2.1, Total Bilirubin 0.3, Aspartate Amino Transf (AST/SGOT) 28, Alanine Aminotransferase ( ALT/SGPT) 21, Alkaline Phosphatase 100, C-Reactive Protein, Quantitative 7.2H, Pro-B-Type Natriuretic Peptide 6311H, Total Protein 6.8, Albumin 2.1L, Globulin 4.7, Albumin/Globulin Ratio 0.4L Height (Feet): 5 Height (Inches): 8.00 Weight (Pounds): 220 General Appearance: no apparent distress Objective no change Tej Sidhu MD Dec 14, 2019 15:19
[2019-12-14 16:00] VITALS: BP 118/62
--- NOTE | 2019-12-14 16:30 | NUR ---
INSURANCE REVIEW FAXED TO [facility] DEPT [phone] AUTH# [id number] NCM: JARRED GONSALVES FAX ALL CLINICALS TO: [phone]
--- NOTE | 2019-12-14 16:41 | NUR ---
CASE MANAGEMENT:REVIEW SI;PNA. SEPSIS. RESPIRATORY FAILURE. AC RENAL FAILURE. 97.4 81 18 111/63 97% 2L NC FIO2 28% H/H 7.0/21.3 NA 133 CL 95 BUN 73 CR 8.4 IS;IRON SUCROSE IV HS CHLORHEXIDINE TOP QD COREG TOP QD HEPARIN SUBQ Q12 HRS PROTONIX PO Q12 HRS MED SURG STATUS DCP;SNF PLACEMENT
--- NOTE | 2019-12-14 17:08 | NUR ---
CHARGE NURSE NOTE: H@H 7.0/21.3. notified. Pt will have HD today.
--- NOTE | 2019-12-14 17:16 | NUR ---
DISCHARGE PLANNING PATIENT HAS BEEN REFERRED TO THE FOLLOWING [facility] CONTRACTED FACILITIES LEDA DELCID P: [phone] F: [phone] KATE MARC P: [phone] F: [phone] [facility] P: [phone] F: [phone] [facility] P: [phone] F: [phone] BANDAR DELCID P: [phone] F: [phone]
--- NOTE | 2019-12-14 19:17 | NUR ---
HAND-OFF: Report given to Satya.
[2019-12-14 20:00] VITALS: BP 137/59
[2019-12-14] MEDS: Dyna-Hex 2% Top Sol 2oz TOPIC SCH (20:00)
--- NOTE | 2019-12-14 20:07 | NUR ---
NURSE NOTES: Patient is awake, alert and verbally responsive. Able to make needs known. Respiration is even and unlabored. IV site noted. No complaint of pain or discomfort noted. Abdomen is soft and non distended. Sacral dressing noted. Kept clean and comfortable. Bed in low and locked position. Call light is at bedside.
--- NOTE | 2019-12-14 21:57 | NUR ---
NURSE NOTES: Blood transfusion started, patient stable. Started with Dialysis nurse. Checked blood and paper work with YUKI Mckenzie
[2019-12-15] VITALS: BP 132/70
[2019-12-15] MEDS: HydrALAZINE 25mg tab ORAL SCH ×3 (01:08→17:30)
[2019-12-15] MEDS: Epoetin Alfa-EPBX(ESRD on dialysis)10,000 unit/ml vial SUBQ SCH (01:08)
--- NOTE | 2019-12-15 01:30 | NUR ---
NURSE NOTES: Blood transfused, dialysis finished. 2500 ml out.
[2019-12-15] MEDS: Acetaminophen 650mg/20.3ml NG PRN (03:56)
[2019-12-15 04:00] VITALS: BP 127/65
[2019-12-15] MEDS: NovoLOG Insulin Flexpen SUBQ SCH ×4 (06:30→21:00)
[2019-12-15 07:19] LABS: BASOPHILS % (AUTO) 0.8 % (0.0-2.0); EOSINOPHILS % (AUTO) 5.4 % (0.0-3.0); HEMATOCRIT 27.9 % (42.0-52.0); HEMOGLOBIN 9.3 G/DL (14.2-18.0); LYMPHOCYTES % (AUTO) 14.3 % (20.0-45.0); MEAN CORPUSCULAR VOLUME 85 FL (80-99); MONOCYTES % (AUTO) 7.5 % (1.0-10.0); PLATELET COUNT 396 K/UL (150-450); RED BLOOD COUNT 3.28 M/UL (4.70-6.10); RED CELL DISTRIBUTION WIDTH 12.8 % (11.6-14.8); WHITE BLOOD COUNT 10.3 K/UL (4.8-10.8)
[2019-12-15 07:21] LABS: ANION GAP 10 mmol/L (5-15); BLOOD UREA NITROGEN 76 mg/dL (7-18); CALCIUM 9.4 MG/DL (8.5-10.1); CARBON DIOXIDE 28 MMOL/L (21-32); CHLORIDE 95 MMOL/L (98-107); POTASSIUM 4.1 MMOL/L (3.5-5.1); SODIUM 133 MMOL/L (136-145)
--- NOTE | 2019-12-15 07:30 | NUR ---
NURSE NOTES: Received pt from YUKI MELLO, Pt is awake and alert, pt has NC 2LMP, Pt has intact iv access L WRIST 20G SL. Pt has intact HD access R chest. pt is eating breakfast by observation. all needs attended, bed is locked and is in the lowest position, call light within easy reach. will continue to monitor.
--- NOTE | 2019-12-15 07:34 | NUR ---
HAND-OFF: Report given to YUKI Carson.
[2019-12-15 08:00] VITALS: BP 137/69
[2019-12-15 08:08] LABS: ALANINE AMINOTRANSFERASE 13 U/L (12-78); ALBUMIN 2.3 G/DL (3.4-5.0); ALKALINE PHOSPHATASE 108 U/L (46-116); ASPARTATE AMINO TRANSFERASE 26 U/L (15-37); BILIRUBIN,DIRECT < 0.1 MG/DL (0.0-0.3); BILIRUBIN,TOTAL 0.3 MG/DL (0.2-1.0); PHOSPHORUS 5.3 MG/DL (2.5-4.9)
[2019-12-15] MEDS: Docusate 100mg cap ORAL SCH ×3 (08:57→17:31)
[2019-12-15] MEDS: Carvedilol 12.5mg tab NG SCH ×2 (08:58→20:56)
[2019-12-15] MEDS: Heparin 5000 units/ml inj SUBQ SCH ×2 (09:02→21:18)
[2019-12-15] MEDS: Dakin's 0.125% Soln (Quarter Strength) 16oz TOPIC SCH (09:03)
--- NOTE | 2019-12-15 09:29 | Surgery Progress Note ---
Surgery Progress Note Subjective Procedure Performed Right femoral temporary hemodialysis catheter removal Additional Comments no acute events comfortable stable labs noted exam unchanged no complaints Objective Last 24 Hour Vital Signs Date Time Temp Pulse Resp B/P (MAP) Pulse Ox O2 Delivery O2 Flow Rate FiO2 12/15/19 09:04 137/69 12/15/19 08:58 137/69 12/15/19 08:58 72 137/69 12/15/19 08:00 97.9 72 19 137/69 (91) 100 12/15/19 04:00 97.3 81 18 127/65 (85) 99 12/15/19 01:08 132/70 12/15/19 00:00 98.3 73 18 132/70 (90) 97 12/14/19 21:00 78 137/59 12/14/19 21:00 Nasal Cannula 2.0 Nasal Cannula 2.0 Nasal Cannula 2.0 12/14/19 20:00 98.0 78 18 137/59 (85) 99 12/14/19 19:58 98 Nasal Cannula 2.0 28 12/14/19 18:19 118/62 12/14/19 18:00 118/62 12/14/19 16:00 97.2 77 19 118/62 (80) 100 12/14/19 13:00 134/61 12/14/19 12:00 97.7 81 18 134/61 (85) 98 12/14/19 10:00 124/55 I&O Intake and Output 12/14/19 12/15/19 19:00 07:00 Intake Total 1000 ml 3950 ml Output Total 300 ml Balance 1000 ml 3650 ml Intake Oral 1000 ml 1200 ml Blood Product 250 ml Hemodialysis 2500 ml Output Urine Total 300 ml # Voids 8 Wound: clean Cardiovascular: RSR Respiratory: clear Abdomen: soft, flat, non-tender, present bowel sounds Extremities: no cyanosis Laboratory Tests Test 12/15/19 06:35 White Blood Count 10.3 K/UL (4.8-10.8) Red Blood Count 3.28 M/UL (4.70-6.10) L Hemoglobin 9.3 G/DL (14.2-18.0) #L Hematocrit 27.9 % (42.0-52.0) #L Mean Corpuscular Volume 85 FL (80-99) Mean Corpuscular Hemoglobin 28.5 PG (27.0-31.0) Mean Corpuscular Hemoglobin Concent 33.4 G/DL (32.0-36.0) Red Cell Distribution Width 12.8 % (11.6-14.8) Platelet Count 396 K/UL (150-450) Mean Platelet Volume 5.3 FL (6.5-10.1) L Neutrophils (%) (Auto) 72.0 % (45.0-75.0) Lymphocytes (%) (Auto) 14.3 % (20.0-45.0) L Monocytes (%) (Auto) 7.5 % (1.0-10.0) Eosinophils (%) (Auto) 5.4 % (0.0-3.0) H Basophils (%) (Auto) 0.8 % (0.0-2.0) Sodium Level 133 MMOL/L (136-145) L Potassium Level 4.1 MMOL/L (3.5-5.1) Chloride Level 95 MMOL/L (98-107) L Carbon Dioxide Level 28 MMOL/L (21-32) Anion Gap 10 mmol/L (5-15) Blood Urea Nitrogen 76 mg/dL (7-18) H Creatinine 8.0 MG/DL (0.55-1.30) H Estimat Glomerular Filtration Rate 8.5 mL/min (>60) Glucose Level 134 MG/DL (74-106) H Calcium Level 9.4 MG/DL (8.5-10.1) Phosphorus Level 5.3 MG/DL (2.5-4.9) H Magnesium Level 2.1 MG/DL (1.8-2.4) Total Bilirubin 0.3 MG/DL (0.2-1.0) Direct Bilirubin < 0.1 MG/DL (0.0-0.3) Aspartate Amino Transf (AST/SGOT) 26 U/L (15-37) Alanine Aminotransferase (ALT/SGPT) 13 U/L (12-78) Alkaline Phosphatase 108 U/L (46-116) Total Protein 7.5 G/DL (6.4-8.2) Albumin 2.3 G/DL (3.4-5.0) L Plan Problems: (1) Septic shock Assessment & Plan: Patient in septic shock prior central line and pressors intubated on vent support in the intensive care unit tachycardic. Renal insufficiency requiring hemodialysis. Temporary hemodialysis catheter indicated and recommended Please see procedure note Dialysis as per nephrology IV antibiotics post per infectious disease Dressing changes as per protocol We will monitor site for hematoma or infection No further acute surgical intervention recommended at this time will follow with recommendations thank you for let me participate patient's care extubated improved downgraded discussed care plan with family consent obtained improved cath in place doing better d/c planning (2) Acute respiratory failure Assessment & Plan: DAILY ESTIMATED NEEDS: Needs based on Critical care, sepsis 75kg adj 22-28 kcals/kg 8562-6209 total kcals 1.2-2 g protein/kg 90-150 g total protein 25-30 mL/kg 9871-9102 total fluid mLs NUTRITION DIAGNOSIS: Swallowing difficulty r/t resp status as evidenced by septic shock now s/p intubation, w/ NGT, NPO at this time. ENTERAL NUTRITION RECOMMENDATIONS: Nepro @40ml/hr x24 hrs + Prosource BID to provide 960ml, 78g + 22 g pro, 698ml free H2O - As medically appropriate, rec non oral feeds via NGT - Start Nepro @20ml/hr for 6 hrs. Advance as tolerated 10ml/hr q4-6 hrs to goal. - Add Prosource BID to better meet est pro needs - Flush per . HOB over 30 degrees -------- ADDITIONAL RECOMMENDATIONS: 1) Tf recs as above, feed as medically able 2) Ad PROSOURCE VIA NGT BID to better meet est pro needs 3) Per SNF: 69inches tall, last wt of 210 lbs (2/3) -> rec weekly calibrated bed scale wts 4) HATCH TENDER eval upon extubation (3) Sepsis Assessment & Plan: Tunneled right permacath placed (4) History of left below knee amputation Assessment & Plan: Wound stable dressings intact elevate with pillow This patient is improving he spent some time with him at the bedside. We turned him to the right lateral decubitus and evaluated the wound. Fortunately what was considered to be a stage IV wound is actually not and a significant amount of the necrotic tissues actually buildup of hair and dried skin protectant. A fair amount of time was spent doing non-excisional debridement with gauze and moist saline until the area was fully cleaned. Identified was a stage II skin breakdown mainly epidermis that looked like necrotic eschar but fortunately was just epidermis and underlying healthy viable dermis with back bleeding. Wound was cleansed and total edges were identified and intact minimal tenderness on palpation good blanching tissue noted surrounding it. Thera honey placed followed by gauze dressing and foam dressing. Discussed care plan with patient. He is very compliant with turning and states he will remain off his mind will stay off his sacrum as much as possible will follow with recommendations. For now Thera honey impregnated gauze and foam dressing. Turn every 2 hours. Nutritional optimization. Additional Comments improving d/c planning Ranjit Ralph Dec 15, 2019 09:29
--- NOTE | 2019-12-15 11:29 | Nephrology Progress Note ---
Assessment/Plan Problem List: (1) ARF (acute renal failure) (2) Acute respiratory failure (3) Septic shock (4) Anemia (5) History of hypertension (6) Diabetes mellitus (7) Acute on chronic systolic heart failure Assessment: ej Fx 40 Assessment Acute renal failure- ? Underlying CKD Respiratory failure Anemia Sepsis / Shock ? Pneumonia DM HTN by history Gout left BKA Cardiomyopathy - Ej Fx 40% Plan Patient was dialyzed yesterday December 13 and was also transfused Today the hemoglobin has improved Continue to monitor hemoglobin and hematocrit. Transfusion as needed. Has permacath- dialysis next 12/15 phos binders Adjust blood pressure medications. Coreg hydralazine previously DC Hydrocortisone Antibiotics urine studies avoid nephrotoxics monitor renal parameters Anemia hairston per orders Subjective ROS Limited/Unobtainable: No Constitutional: Reports: malaise Objective Objective Last 24 Hour Vital Signs Date Time Temp Pulse Resp B/P (MAP) Pulse Ox O2 Delivery O2 Flow Rate FiO2 12/15/19 09:04 137/69 12/15/19 09:00 Nasal Cannula 2.0 Nasal Cannula 2.0 Nasal Cannula 2.0 12/15/19 08:58 137/69 12/15/19 08:58 72 137/69 12/15/19 08:00 97.9 72 19 137/69 (91) 100 12/15/19 04:00 97.3 81 18 127/65 (85) 99 12/15/19 01:08 132/70 12/15/19 00:00 98.3 73 18 132/70 (90) 97 12/14/19 21:00 78 137/59 12/14/19 21:00 Nasal Cannula 2.0 Nasal Cannula 2.0 Nasal Cannula 2.0 12/14/19 20:00 98.0 78 18 137/59 (85) 99 12/14/19 19:58 98 Nasal Cannula 2.0 28 12/14/19 18:19 118/62 12/14/19 18:00 118/62 12/14/19 16:00 97.2 77 19 118/62 (80) 100 12/14/19 13:00 134/61 12/14/19 12:00 97.7 81 18 134/61 (85) 98 Intake and Output 12/14/19 12/15/19 19:00 07:00 Intake Total 1000 ml 3950 ml Output Total 300 ml Balance 1000 ml 3650 ml Intake Oral 1000 ml 1200 ml Blood Product 250 ml Hemodialysis 2500 ml Output Urine Total 300 ml # Voids 8 Laboratory Tests 12/15/19 06:35: White Blood Count 10.3, Red Blood Count 3.28L, Hemoglobin 9.3#L, Hematocrit 27.9 #L, Mean Corpuscular Volume 85, Mean Corpuscular Hemoglobin 28.5, Mean Corpuscular Hemoglobin Concent 33.4, Red Cell Distribution Width 12.8, Platelet Count 396, Mean Platelet Volume 5.3L, Neutrophils (%) (Auto) 72.0, Lymphocytes ( %) (Auto) 14.3L, Monocytes (%) (Auto) 7.5, Eosinophils (%) (Auto) 5.4H, Basophils (%) (Auto) 0.8, Sodium Level 133L, Potassium Level 4.1, Chloride Level 95L, Carbon Dioxide Level 28, Anion Gap 10, Blood Urea Nitrogen 76H, Creatinine 8.0H, Estimat Glomerular Filtration Rate 8.5, Glucose Level 134H, Calcium Level 9.4, Phosphorus Level 5.3H, Magnesium Level 2.1, Total Bilirubin 0.3, Direct Bilirubin < 0.1, Aspartate Amino Transf (AST/SGOT) 26, Alanine Aminotransferase (ALT/SGPT) 13, Alkaline Phosphatase 108, Total Protein 7.5, Albumin 2.3L Height (Feet): 5 Height (Inches): 8.00 Weight (Pounds): 222 General Appearance: no apparent distress Cardiovascular: normal rate Respiratory/Chest: decreased breath sounds Abdomen: soft Objective no change Tej Sidhu MD Dec 15, 2019 11:29
[2019-12-15 12:00] VITALS: BP 131/63
--- NOTE | 2019-12-15 13:11 | NUR ---
INSURANCE REVIEW FAXED TO [facility] DEPT [phone] AUTH# [id number] NCM: JARRED GONSALVES FAX ALL CLINICALS TO: [phone]
--- NOTE | 2019-12-15 13:42 | Internal Med Progress Note ---
Subjective Physician Name Cezar Ceja Attending Physician Cezar Ceja MD Current Medications Medications (Trade) Dose Ordered Sig/Valeriano Route PRN Reason Start Time Stop Time Status Last Admin Dose Admin Acetaminophen (Tylenol) 650 mg Q4H PRN NG Mild Pain/Temp > 100.5 12/09/19 20:33 01/02/20 20:32 12/15/19 03:56 Carvedilol (Coreg) 12.5 mg EVERY 12 HOURS NG 12/09/19 21:00 01/02/20 21:59 12/15/19 08:58 Chlorhexidine Gluconate (Katia-Hex 2%) 1 applic DAILY@2000 TOPIC 12/10/19 20:00 12/25/19 19:59 12/13/19 21:03 Dextrose (Dextrose 50%) 25 ml Q30M PRN IV Hypoglycemia 12/09/19 20:33 12/24/19 20:32 Dextrose (Dextrose 50%) 50 ml Q30M PRN IV Hypoglycemia 12/09/19 20:33 12/24/19 20:32 Docusate Sodium (Colace) 100 mg THREE TIMES A DAY ORAL 12/10/19 09:00 01/08/20 12:59 12/15/19 08:57 Epoetin Ricky (Epoetin Ricky(ESRD on dialysis)) 10,000 unit THU-THU-THU SUBQ 12/12/19 21:00 01/11/20 20:59 12/15/19 01:08 Heparin Sodium (Porcine) (Heparin 5000 units/ml) 5,000 units EVERY 12 HOURS SUBQ 12/09/19 21:00 01/02/20 21:59 12/15/19 09:02 Hydralazine HCl (Apresoline) 25 mg Q4H PRN ORAL bp over 160 syst 12/09/19 20:37 01/08/20 20:36 Hydralazine HCl (Apresoline) 25 mg Q8H ORAL 12/12/19 10:00 01/11/20 09:59 12/15/19 09:04 Insulin Aspart (NovoLOG) BEFORE MEALS AND HS SUBQ 12/09/19 21:00 01/02/20 21:13 Iron Sucrose 100 mg/Sodium Chloride 55 ml @ 200 mls/hr BEDTIME IV 12/10/19 21:00 12/19/19 21:17 12/13/19 21:04 Isosorbide Dinitrate (Isordil) 20 mg TID GT 12/10/19 09:00 01/01/20 08:59 12/15/19 08:58 Nitroglycerin (Ntg) 0.4 mg Q5M PRN SL Prn Chest Pain 12/09/19 20:30 01/02/20 21:16 Ondansetron HCl (Zofran) 4 mg Q6H PRN IVP Nausea & Vomiting 12/09/19 20:34 01/02/20 20:33 Pantoprazole (Protonix) 40 mg EVERY 12 HOURS ORAL 12/09/19 21:00 01/08/20 20:59 12/15/19 08:57 Polyethylene Glycol (Miralax) 17 gm DAILYPRN PRN NG Constipation 12/09/19 20:34 01/02/20 20:33 Promethazine HCl/ Codeine (Phenergan with Codeine) 5 ml Q4H PRN NG For Cough 12/09/19 20:34 01/02/20 20:33 12/15/19 09:02 Sevelamer Carbonate (Renvela) 2,400 mg THREE TIMES A DAY ORAL 12/10/19 09:00 01/07/20 12:59 12/15/19 08:57 Sodium Hypochlorite (Dakin's Quarter Strength) 1 applic DAILY TOPIC 12/10/19 09:00 01/07/20 08:59 12/15/19 09:03 Allergies: Coded Allergies: No Known Allergies (Unverified , 11/24/19) Subjective Awake, alert, responsive, denies any chest pain, decreased shortness of breath. WBC: 10.3, hemoglobin: 9.3. Objective Last Vital Signs Date Time Temp Pulse Resp B/P (MAP) Pulse Ox O2 Delivery O2 Flow Rate FiO2 12/15/19 13:23 98 Nasal Cannula 2.0 28 12/15/19 09:04 137/69 12/15/19 08:58 72 12/15/19 08:00 97.9 19 Laboratory Tests Test 12/15/19 06:35 White Blood Count 10.3 K/UL (4.8-10.8) Red Blood Count 3.28 M/UL (4.70-6.10) L Hemoglobin 9.3 G/DL (14.2-18.0) #L Hematocrit 27.9 % (42.0-52.0) #L Mean Corpuscular Volume 85 FL (80-99) Mean Corpuscular Hemoglobin 28.5 PG (27.0-31.0) Mean Corpuscular Hemoglobin Concent 33.4 G/DL (32.0-36.0) Red Cell Distribution Width 12.8 % (11.6-14.8) Platelet Count 396 K/UL (150-450) Mean Platelet Volume 5.3 FL (6.5-10.1) L Neutrophils (%) (Auto) 72.0 % (45.0-75.0) Lymphocytes (%) (Auto) 14.3 % (20.0-45.0) L Monocytes (%) (Auto) 7.5 % (1.0-10.0) Eosinophils (%) (Auto) 5.4 % (0.0-3.0) H Basophils (%) (Auto) 0.8 % (0.0-2.0) Sodium Level 133 MMOL/L (136-145) L Potassium Level 4.1 MMOL/L (3.5-5.1) Chloride Level 95 MMOL/L (98-107) L Carbon Dioxide Level 28 MMOL/L (21-32) Anion Gap 10 mmol/L (5-15) Blood Urea Nitrogen 76 mg/dL (7-18) H Creatinine 8.0 MG/DL (0.55-1.30) H Estimat Glomerular Filtration Rate 8.5 mL/min (>60) Glucose Level 134 MG/DL (74-106) H Calcium Level 9.4 MG/DL (8.5-10.1) Phosphorus Level 5.3 MG/DL (2.5-4.9) H Magnesium Level 2.1 MG/DL (1.8-2.4) Total Bilirubin 0.3 MG/DL (0.2-1.0) Direct Bilirubin < 0.1 MG/DL (0.0-0.3) Aspartate Amino Transf (AST/SGOT) 26 U/L (15-37) Alanine Aminotransferase (ALT/SGPT) 13 U/L (12-78) Alkaline Phosphatase 108 U/L (46-116) Total Protein 7.5 G/DL (6.4-8.2) Albumin 2.3 G/DL (3.4-5.0) L Intake and Output 12/14/19 12/15/19 19:00 07:00 Intake Total 1000 ml 3950 ml Output Total 300 ml Balance 1000 ml 3650 ml Intake Oral 1000 ml 1200 ml Blood Product 250 ml Hemodialysis 2500 ml Output Urine Total 300 ml # Voids 8 Objective General: Awake, alert, responsive, no acute distress. HEENT: NCAT, sclera anicteric, PERRL, EOMI, Neck: Supple, No JVD. Lungs: Mechanical breath sound, no Wheeze or Rales. Heart: Regular rate and rhythm, normal S1/S2, no murmurs Abdomen: soft, nontender, nondistended. Normoactive bowel sounds, Obesity. / Rectal: Refused and deferred. Extremities: No Cyanosis , clubbing or edema, Left BKA. Neuro: CN 2-12 intact, Able to move all extremities. Assessment/Plan Assessment/Plan (1) ARDS (adult respiratory distress syndrome) (2) Septic shock (3) Acute respiratory failure (4) HCAP (healthcare-associated pneumonia) (5) Chronic systolic heart failure (6) Chronic kidney disease, stage 3 (7) Diabetes mellitus (8) History of hypertension (9) History of gout (10) History of left below knee amputation Plan: PT motility, OOB to chair Abx: Off Monitor labs and cultures. discharge planning. Cezar Ceja MD Dec 15, 2019 13:42
--- NOTE | 2019-12-15 13:44 | Pulmonology Progress Note ---
Assessment/Plan Problems: (1) Acute respiratory failure Assessment & Plan: resolved (2) ESRD (end stage renal disease) (3) Septic shock Assessment & Plan: resolved (4) Chronic systolic heart failure (5) History of hypertension (6) Diabetes mellitus (7) History of left below knee amputation (8) History of gout Assessment/Plan getting ready to be discharged repeat cultures titrate fio2 to sat of 92% check cultures DC planning Subjective ROS Limited/Unobtainable: No Constitutional: Reports: no symptoms HEENT: Repors: no symptoms Allergies: Coded Allergies: No Known Allergies (Unverified , 11/24/19) Objective Last 24 Hour Vital Signs Date Time Temp Pulse Resp B/P (MAP) Pulse Ox O2 Delivery O2 Flow Rate FiO2 12/15/19 13:23 98 Nasal Cannula 2.0 28 12/15/19 09:04 137/69 12/15/19 09:00 Nasal Cannula 2.0 Nasal Cannula 2.0 Nasal Cannula 2.0 12/15/19 08:58 137/69 12/15/19 08:58 72 137/69 12/15/19 08:00 97.9 72 19 137/69 (91) 100 12/15/19 04:00 97.3 81 18 127/65 (85) 99 12/15/19 01:08 132/70 12/15/19 00:00 98.3 73 18 132/70 (90) 97 12/14/19 21:00 78 137/59 12/14/19 21:00 Nasal Cannula 2.0 Nasal Cannula 2.0 Nasal Cannula 2.0 12/14/19 20:00 98.0 78 18 137/59 (85) 99 12/14/19 19:58 98 Nasal Cannula 2.0 28 12/14/19 18:19 118/62 12/14/19 18:00 118/62 12/14/19 16:00 97.2 77 19 118/62 (80) 100 Intake and Output 12/14/19 12/15/19 19:00 07:00 Intake Total 1000 ml 3950 ml Output Total 300 ml Balance 1000 ml 3650 ml Intake Oral 1000 ml 1200 ml Blood Product 250 ml Hemodialysis 2500 ml Output Urine Total 300 ml # Voids 8 General Appearance: WD/WN HEENT: normocephalic, anicteric Respiratory/Chest: chest wall non-tender, lungs clear Cardiovascular: normal peripheral pulses, regular rhythm Abdomen: normal bowel sounds, soft, non tender Extremities: no cyanosis, no clubbing Skin: no lesions Laboratory Tests 12/15/19 06:35: White Blood Count 10.3, Red Blood Count 3.28L, Hemoglobin 9.3#L, Hematocrit 27.9 #L, Mean Corpuscular Volume 85, Mean Corpuscular Hemoglobin 28.5, Mean Corpuscular Hemoglobin Concent 33.4, Red Cell Distribution Width 12.8, Platelet Count 396, Mean Platelet Volume 5.3L, Neutrophils (%) (Auto) 72.0, Lymphocytes ( %) (Auto) 14.3L, Monocytes (%) (Auto) 7.5, Eosinophils (%) (Auto) 5.4H, Basophils (%) (Auto) 0.8, Sodium Level 133L, Potassium Level 4.1, Chloride Level 95L, Carbon Dioxide Level 28, Anion Gap 10, Blood Urea Nitrogen 76H, Creatinine 8.0H, Estimat Glomerular Filtration Rate 8.5, Glucose Level 134H, Calcium Level 9.4, Phosphorus Level 5.3H, Magnesium Level 2.1, Total Bilirubin 0.3, Direct Bilirubin < 0.1, Aspartate Amino Transf (AST/SGOT) 26, Alanine Aminotransferase (ALT/SGPT) 13, Alkaline Phosphatase 108, Total Protein 7.5, Albumin 2.3L Current Medications Medications (Trade) Dose Ordered Sig/Valeriano Route PRN Reason Start Time Stop Time Status Last Admin Dose Admin Acetaminophen (Tylenol) 650 mg Q4H PRN NG Mild Pain/Temp > 100.5 12/09/19 20:33 01/02/20 20:32 12/15/19 03:56 Carvedilol (Coreg) 12.5 mg EVERY 12 HOURS NG 12/09/19 21:00 01/02/20 21:59 12/15/19 08:58 Chlorhexidine Gluconate (Katia-Hex 2%) 1 applic DAILY@1999 TOPIC 12/10/19 20:00 12/25/19 19:59 12/13/19 21:03 Dextrose (Dextrose 50%) 25 ml Q30M PRN IV Hypoglycemia 12/09/19 20:33 12/24/19 20:32 Dextrose (Dextrose 50%) 50 ml Q30M PRN IV Hypoglycemia 12/09/19 20:33 12/24/19 20:32 Docusate Sodium (Colace) 100 mg THREE TIMES A DAY ORAL 12/10/19 09:00 01/08/20 12:59 12/15/19 08:57 Epoetin Ricky (Epoetin Ricky(ESRD on dialysis)) 10,000 unit THU-THU-THU SUBQ 12/12/19 21:00 01/11/20 20:59 12/15/19 01:08 Heparin Sodium (Porcine) (Heparin 5000 units/ml) 5,000 units EVERY 12 HOURS SUBQ 12/09/19 21:00 01/02/20 21:59 12/15/19 09:02 Hydralazine HCl (Apresoline) 25 mg Q4H PRN ORAL bp over 160 syst 12/09/19 20:37 01/08/20 20:36 Hydralazine HCl (Apresoline) 25 mg Q8H ORAL 12/12/19 10:00 01/11/20 09:59 12/15/19 09:04 Insulin Aspart (NovoLOG) BEFORE MEALS AND HS SUBQ 12/09/19 21:00 01/02/20 21:13 Iron Sucrose 100 mg/Sodium Chloride 55 ml @ 200 mls/hr BEDTIME IV 12/10/19 21:00 12/19/19 21:17 12/13/19 21:04 Isosorbide Dinitrate (Isordil) 20 mg TID GT 12/10/19 09:00 01/01/20 08:59 12/15/19 08:58 Nitroglycerin (Ntg) 0.4 mg Q5M PRN SL Prn Chest Pain 12/09/19 20:30 01/02/20 21:16 Ondansetron HCl (Zofran) 4 mg Q6H PRN IVP Nausea & Vomiting 12/09/19 20:34 01/02/20 20:33 Pantoprazole (Protonix) 40 mg EVERY 12 HOURS ORAL 12/09/19 21:00 01/08/20 20:59 12/15/19 08:57 Polyethylene Glycol (Miralax) 17 gm DAILYPRN PRN NG Constipation 12/09/19 20:34 01/02/20 20:33 Promethazine HCl/ Codeine (Phenergan with Codeine) 5 ml Q4H PRN NG For Cough 12/09/19 20:34 01/02/20 20:33 12/15/19 09:02 Sevelamer Carbonate (Renvela) 2,400 mg THREE TIMES A DAY ORAL 12/10/19 09:00 01/07/20 12:59 12/15/19 08:57 Sodium Hypochlorite (Dakin's Quarter Strength) 1 applic DAILY TOPIC 12/10/19 09:00 01/07/20 08:59 12/15/19 09:03 Brandy Milton MD Dec 15, 2019 13:44
--- NOTE | 2019-12-15 14:00 | NUR ---
PT NOTE Received MD order for PT evaluation. Attempted to see patient however patient not available at this time. Alli MIRZA notified, will follow up in a.m.
[2019-12-15 16:00] VITALS: BP 125/67
--- NOTE | 2019-12-15 16:02 | Infectious Diseases Prog Note ---
Assessment/Plan Assessment/Plan Assessment: Septic Shock- SP Pneumonia -12/01 CXR: probably unchanged bilateral diffuse interstitial and airspace disease. -11/30 sp cx:Interim marked worsening of bilateral pulmonary parenchymal disease, over one day -11/29 sp cx ESBL E.coli (S zosyn, Imipenem, bactrim) -11/24 u/a neg; ucx neg Bcx NTD influenza sc neg CXR: Bilateral dense consolidation, likely pneumonia. Pulmonary edema also possible. Correlate with clinical findings sp cx ordered,not done legionella ag urine neg S. hominis bacteremia- RIJ infection vs contamination - SP Perm Cath insertion 12/08 - HD Cath removed on 12/06 - RIJ removed on 12/02 -11/27 Bcx 1/4 S. hominis; 11/29 Bcx 1/2 S. hominis (RIJ), NTD x2 (peripheral) Low grade fever , Sp Leukocytosis, improving ARDS Acute respiratory failure s/p intubation 11/24, sp extubation 11/29, now on bipap GANGA on CKD; now on HD 11/27 Elevated LFTs;improving Troponinemia Dm2 Gout s/p L BKA allergic rhinitis CAD s/p stent prosthetic AVR hx of esophagitis PVD chronic sCHF HLD HTN SNF resident Plan: monitor pt off of AB Rx - 12/13 SP IV Vanco # 10/10 - Sp Meropenem # 10/10 for ESBL E.coli PNA -12/01 SP IV Vancomycin #8, Tamiflu #7 -11/30 SP LEvaquin #7, Cefepime #7 -Monitor CBC/CMP, temperatures -aspiration precautions Thank you for this consultation. Will continue to follow along with you. Subjective Allergies: Coded Allergies: No Known Allergies (Unverified , 11/24/19) Subjective comfortable no acute event Objective Vital Signs Last 24 Hour Vital Signs Date Time Temp Pulse Resp B/P (MAP) Pulse Ox O2 Delivery O2 Flow Rate FiO2 12/15/19 14:03 119/59 12/15/19 13:23 98 Nasal Cannula 2.0 28 12/15/19 12:00 97.5 76 18 131/63 (85) 100 12/15/19 09:04 137/69 12/15/19 09:00 Nasal Cannula 2.0 Nasal Cannula 2.0 Nasal Cannula 2.0 12/15/19 08:58 137/69 12/15/19 08:58 72 137/69 12/15/19 08:00 97.9 72 19 137/69 (91) 100 12/15/19 04:00 97.3 81 18 127/65 (85) 99 12/15/19 01:08 132/70 12/15/19 00:00 98.3 73 18 132/70 (90) 97 12/14/19 21:00 78 137/59 12/14/19 21:00 Nasal Cannula 2.0 Nasal Cannula 2.0 Nasal Cannula 2.0 12/14/19 20:00 98.0 78 18 137/59 (85) 99 12/14/19 19:58 98 Nasal Cannula 2.0 28 12/14/19 18:19 118/62 12/14/19 18:00 118/62 Height (Feet): 5 Height (Inches): 8.00 Weight (Pounds): 222 Respiratory/Chest: normal breath sounds Cardiovascular: regular rhythm Abdomen: no organomegaly Laboratory Tests Test 12/15/19 06:35 White Blood Count 10.3 K/UL (4.8-10.8) Red Blood Count 3.28 M/UL (4.70-6.10) L Hemoglobin 9.3 G/DL (14.2-18.0) #L Hematocrit 27.9 % (42.0-52.0) #L Mean Corpuscular Volume 85 FL (80-99) Mean Corpuscular Hemoglobin 28.5 PG (27.0-31.0) Mean Corpuscular Hemoglobin Concent 33.4 G/DL (32.0-36.0) Red Cell Distribution Width 12.8 % (11.6-14.8) Platelet Count 396 K/UL (150-450) Mean Platelet Volume 5.3 FL (6.5-10.1) L Neutrophils (%) (Auto) 72.0 % (45.0-75.0) Lymphocytes (%) (Auto) 14.3 % (20.0-45.0) L Monocytes (%) (Auto) 7.5 % (1.0-10.0) Eosinophils (%) (Auto) 5.4 % (0.0-3.0) H Basophils (%) (Auto) 0.8 % (0.0-2.0) Sodium Level 133 MMOL/L (136-145) L Potassium Level 4.1 MMOL/L (3.5-5.1) Chloride Level 95 MMOL/L (98-107) L Carbon Dioxide Level 28 MMOL/L (21-32) Anion Gap 10 mmol/L (5-15) Blood Urea Nitrogen 76 mg/dL (7-18) H Creatinine 8.0 MG/DL (0.55-1.30) H Estimat Glomerular Filtration Rate 8.5 mL/min (>60) Glucose Level 134 MG/DL (74-106) H Calcium Level 9.4 MG/DL (8.5-10.1) Phosphorus Level 5.3 MG/DL (2.5-4.9) H Magnesium Level 2.1 MG/DL (1.8-2.4) Total Bilirubin 0.3 MG/DL (0.2-1.0) Direct Bilirubin < 0.1 MG/DL (0.0-0.3) Aspartate Amino Transf (AST/SGOT) 26 U/L (15-37) Alanine Aminotransferase (ALT/SGPT) 13 U/L (12-78) Alkaline Phosphatase 108 U/L (46-116) Total Protein 7.5 G/DL (6.4-8.2) Albumin 2.3 G/DL (3.4-5.0) L Current Medications Medications (Trade) Dose Ordered Sig/Valeriano Route PRN Reason Start Time Stop Time Status Last Admin Dose Admin Acetaminophen (Tylenol) 650 mg Q4H PRN NG Mild Pain/Temp > 100.5 12/09/19 20:33 01/02/20 20:32 12/15/19 03:56 Carvedilol (Coreg) 12.5 mg EVERY 12 HOURS NG 12/09/19 21:00 01/02/20 21:59 12/15/19 08:58 Chlorhexidine Gluconate (Katia-Hex 2%) 1 applic DAILY@1999 TOPIC 12/10/19 20:00 12/25/19 19:59 12/13/19 21:03 Dextrose (Dextrose 50%) 25 ml Q30M PRN IV Hypoglycemia 12/09/19 20:33 12/24/19 20:32 Dextrose (Dextrose 50%) 50 ml Q30M PRN IV Hypoglycemia 12/09/19 20:33 12/24/19 20:32 Docusate Sodium (Colace) 100 mg THREE TIMES A DAY ORAL 12/10/19 09:00 01/08/20 12:59 12/15/19 14:01 Epoetin Ricky (Epoetin Ricky(ESRD on dialysis)) 10,000 unit THU-THU-THU SUBQ 12/12/19 21:00 01/11/20 20:59 12/15/19 01:08 Heparin Sodium (Porcine) (Heparin 5000 units/ml) 5,000 units EVERY 12 HOURS SUBQ 12/09/19 21:00 01/02/20 21:59 12/15/19 09:02 Hydralazine HCl (Apresoline) 25 mg Q4H PRN ORAL bp over 160 syst 12/09/19 20:37 01/08/20 20:36 Hydralazine HCl (Apresoline) 25 mg Q8H ORAL 12/12/19 10:00 01/11/20 09:59 12/15/19 09:04 Insulin Aspart (NovoLOG) BEFORE MEALS AND HS SUBQ 12/09/19 21:00 01/02/20 21:13 Iron Sucrose 100 mg/Sodium Chloride 55 ml @ 200 mls/hr BEDTIME IV 12/10/19 21:00 12/19/19 21:17 12/13/19 21:04 Isosorbide Dinitrate (Isordil) 20 mg TID GT 12/10/19 09:00 01/01/20 08:59 12/15/19 14:03 Nitroglycerin (Ntg) 0.4 mg Q5M PRN SL Prn Chest Pain 12/09/19 20:30 01/02/20 21:16 Ondansetron HCl (Zofran) 4 mg Q6H PRN IVP Nausea & Vomiting 12/09/19 20:34 01/02/20 20:33 Pantoprazole (Protonix) 40 mg EVERY 12 HOURS ORAL 12/09/19 21:00 01/08/20 20:59 12/15/19 08:57 Polyethylene Glycol (Miralax) 17 gm DAILYPRN PRN NG Constipation 12/09/19 20:34 01/02/20 20:33 Promethazine HCl/ Codeine (Phenergan with Codeine) 5 ml Q4H PRN NG For Cough 2/28/20 20:34 01/02/20 20:33 12/15/19 09:02 Sevelamer Carbonate (Renvela) 2,400 mg THREE TIMES A DAY ORAL 12/10/19 09:00 01/07/20 12:59 12/15/19 14:01 Sodium Hypochlorite (Dakin's Quarter Strength) 1 applic DAILY TOPIC 12/10/19 09:00 01/07/20 08:59 12/15/19 09:03 Gabe Bush MD Dec 15, 2019 16:02
--- NOTE | 2019-12-15 16:04 | NUR ---
DISCHARGE PLANNING CALL RECEIVED FROM LES WITH BANDAR DELCID. [facility] IS CONSIDERING ACCEPTING PATIENT. WILL COME TO [facility] Thu12/16/2019 TO SPEAK WITH PATIENT PRIOR TO ACCEPTANCE.
--- NOTE | 2019-12-15 16:05 | NUR ---
CASE MANAGEMENT:REVIEW SI;PNA. SEPSIS. RESPIRATORY FAILURE. AC RENAL FAILURE. 97.5 76 137/69 98% 2L NC FIO2 28% IS; IRON SUCROSE IV HS CHLORHEXIDINE TOP QD COREG TOP QD HEPARIN SUBQ Q12 HRS PROTONIX PO Q12 HRS MED SURG STATUS PLAN OF CARE; MONITOR OFF ABX REPEAT CULTURES DCP; SNF PLACEMENT PENDING ACCEPTANCE TO A REFERRED FACILITIES
--- NOTE | 2019-12-15 16:29 | NUR ---
*-*DISCHARGE PLANNING*-* [facility] P: [phone] F: [phone] -*-*-*-*-*-*CLINICALS FAXED*-*-*-*-*-*-*
--- NOTE | 2019-12-15 16:29 | NUR ---
DISCHARGE PLANNING PATIENT HAS BEEN REFERRED TO THE FOLLOWING [facility], [facility]IN [facility] CONTRACTED FACILITIES AND DECLINED FROM LEDA DELCID P: [phone] F: [phone] KATE MARC P: [phone] F: [phone] [facility] P: [phone] F: [phone] [facility] P: [phone] F: [phone] BANDAR DELCID P: [phone] F: [phone]
--- NOTE | 2019-12-15 19:43 | NUR ---
HAND-OFF: Report given to ISABEL ANDRE. Pt is awake and stable.
[2019-12-15 20:00] VITALS: BP 118/74
[2019-12-15] MEDS: Dyna-Hex 2% Top Sol 2oz TOPIC SCH (20:00)
--- NOTE | 2019-12-15 20:00 | NUR ---
NURSE NOTES: RECEIVED PATIENT LYING IN BED, AWAKE, ALERT/ORIENTED X4, VERBALLY RESPONSIVE, DENIES PAIN. NO SIGNS AND SYMPTOMS OF ACUTE CARDIO RESPIRATORY DISTRESS/SHORTNESS OF BREATH, DENIES CHEST PAIN. IV INTACT TO LEFT WRIST/GAUGE 20 SL. RIGHT CHEST PERMACATH/HD, DRESSING DRY AND INTACT, NO SIGNS OF BLEEDING. DRESSING DRY AND INTACT TO SACRAL WOUND, ASSISTED WITH REPOSITIONING FOR COMFORT/PRESSURE RELIEF, TOLERATED WELL. SIDE RAILS UP X3/BED IN LOWEST POSITION FOR SAFETY. ENCOURAGED PATIENT TO UTILIZE CALL LIGHT FOR ASSISTANCE, VERBALIZED UNDERSTANDING. NAD.
--- NOTE | 2019-12-15 21:00 | NUR ---
NURSE NOTES: BLOOD GLUCOSE LEVEL MONITORED VIA GLUCOMETER WITH RESULT 98MG/DL, ASYMPTOMATIC, NO SLIDING SCALE COVERAGE.
--- NOTE | 2019-12-15 22:00 | NUR ---
NURSE NOTES: Iron not given, patient had blood transfusion yesterday. Less than 24 hrs ago. Per pharmacy hold.
[2019-12-16] VITALS (7 sets, daily range): BP systolic 119–142; BP diastolic 60–72
[2019-12-16] MEDS: HydrALAZINE 25mg tab ORAL SCH ×3 (02:00→17:19)
--- NOTE | 2019-12-16 06:23 | NUR ---
NURSE NOTES: MONITORED BLOOD GLUCOSE LEVEL VIA GLUCOMETER WITH RESULT 93MG/DL, ASYMPTOMATIC, NO INSULIN COVERAGE.
[2019-12-16] MEDS: NovoLOG Insulin Flexpen SUBQ SCH ×4 (06:24→20:56)
[2019-12-16 06:39] LABS: BASOPHILS % (AUTO) 0.5 % (0.0-2.0); EOSINOPHILS % (AUTO) 6.4 % (0.0-3.0); HEMOGLOBIN 9.2 G/DL (14.2-18.0); LYMPHOCYTES % (AUTO) 19.8 % (20.0-45.0); MEAN CORPUSCULAR VOLUME 85 FL (80-99); MONOCYTES % (AUTO) 7.9 % (1.0-10.0); NEUTROPHILS % (AUTO) 65.5 % (45.0-75.0); PLATELET COUNT 416 K/UL (150-450); RED BLOOD COUNT 3.16 M/UL (4.70-6.10); RED CELL DISTRIBUTION WIDTH 12.9 % (11.6-14.8); WHITE BLOOD COUNT 8.9 K/UL (4.8-10.8)
[2019-12-16 06:55] LABS: ALANINE AMINOTRANSFERASE 18 U/L (12-78); ALBUMIN 2.1 G/DL (3.4-5.0); ALBUMIN/GLOBULIN RATIO 0.4 (1.0-2.7); ALKALINE PHOSPHATASE 107 U/L (46-116); ANION GAP 14 mmol/L (5-15); ASPARTATE AMINO TRANSFERASE 25 U/L (15-37); BILIRUBIN,TOTAL 0.3 MG/DL (0.2-1.0); BLOOD UREA NITROGEN 83 mg/dL (7-18); CALCIUM 9.3 MG/DL (8.5-10.1); CARBON DIOXIDE 24 MMOL/L (21-32); CHLORIDE 94 MMOL/L (98-107); CREATININE 8.8 MG/DL (0.55-1.30); POTASSIUM 4.3 MMOL/L (3.5-5.1); SODIUM 132 MMOL/L (136-145)
--- NOTE | 2019-12-16 07:35 | NUR ---
NURSE NOTES: RECEIVED PATIENT LYING IN BED, AWAKE, ALERT/ORIENTED X4, ABLE TO VERBALIZE NEEDS. DENIES PAIN/DISCOMFORT. . NO SIGNS AND SYMPTOMS OF ACUTE CARDIO-RESPIRATORY DISTRESS/SHORTNESS OF BREATH, DENIES CHEST PAIN. IV SITE PATENT AND INTACT TO LEFT WRIST/GAUGE 20 SL. RIGHT CHEST PERMACATH/HD, DRESSING DRY AND INTACT, NO SIGNS OF BLEEDING. DRESSING DRY AND INTACT TO SACRAL WOUND. ON P200 MATTRESS. ASSISTED WITH REPOSITIONING FOR COMFORT/PRESSURE RELIEF, TOLERATED WELL. BED IS IN THE LOWEST POSITION. CALL LIGHT IS WITHIN REACH. SIDE RAILS UP X3 FOR SAFETY. BED BRAKE AND LOCK @ ALL TIMES. ENCOURAGED PATIENT TO UTILIZE CALL LIGHT FOR ASSISTANCE, VERBALIZED UNDERSTANDING. WILL CONT THE PLAN OF CARE.
[2019-12-16] MEDS: Carvedilol 12.5mg tab NG SCH ×2 (08:51→20:47)
[2019-12-16] MEDS: Dakin's 0.125% Soln (Quarter Strength) 16oz TOPIC SCH (08:51)
--- NOTE | 2019-12-16 08:52 | Nephrology Progress Note ---
Assessment/Plan Problem List: (1) ARF (acute renal failure) (2) Acute respiratory failure (3) Septic shock (4) Anemia (5) History of hypertension (6) Diabetes mellitus (7) Acute on chronic systolic heart failure Assessment: ej Fx 40 Assessment Acute renal failure- ? Underlying CKD Respiratory failure Anemia Sepsis / Shock ? Pneumonia DM HTN by history Gout left BKA Cardiomyopathy - Ej Fx 40% Plan Patient was dialyzed yesterday December 13 and was also transfused Today the hemoglobin has improved Continue to monitor hemoglobin and hematocrit. Transfusion as needed. Has permacath- dialysis next 12/15 phos binders Adjust blood pressure medications. Coreg hydralazine previously DC Hydrocortisone Antibiotics urine studies avoid nephrotoxics monitor renal parameters Anemia hairston per orders Subjective ROS Limited/Unobtainable: No Constitutional: Reports: malaise Objective Objective Last 24 Hour Vital Signs Date Time Temp Pulse Resp B/P (MAP) Pulse Ox O2 Delivery O2 Flow Rate FiO2 12/16/19 04:00 97.8 76 18 129/60 (83) 99 12/16/19 02:00 101/63 12/16/19 00:00 98.4 80 18 128/61 (83) 100 12/15/19 23:44 99 Nasal Cannula 2.0 28 12/15/19 21:00 Nasal Cannula 2.0 Nasal Cannula 2.0 Nasal Cannula 2.0 12/15/19 20:56 79 124/73 12/15/19 20:00 98.1 80 18 118/74 (89) 100 12/15/19 19:00 97 Nasal Cannula 2.0 28 12/15/19 17:30 125/67 12/15/19 17:30 125/67 12/15/19 16:00 97.7 75 16 125/67 (86) 100 12/15/19 14:03 119/59 12/15/19 13:23 98 Nasal Cannula 2.0 28 12/15/19 12:00 97.5 76 18 131/63 (85) 100 12/15/19 09:04 137/69 12/15/19 09:00 Nasal Cannula 2.0 Nasal Cannula 2.0 Nasal Cannula 2.0 12/15/19 08:58 137/69 12/15/19 08:58 72 137/69 Intake and Output 12/15/19 12/16/19 19:00 07:00 Intake Total 1000 ml 480 ml Output Total 500 ml Balance 1000 ml -20 ml Intake Oral 1000 ml 480 ml Output Urine Total 500 ml # Voids 6 # Bowel Movements 3 Current Medications Medications (Trade) Dose Ordered Sig/Valeriano Route PRN Reason Start Time Stop Time Status Last Admin Dose Admin Acetaminophen (Tylenol) 650 mg Q4H PRN NG Mild Pain/Temp > 100.5 12/09/19 20:33 01/02/20 20:32 12/15/19 03:56 Carvedilol (Coreg) 12.5 mg EVERY 12 HOURS NG 12/09/19 21:00 01/02/20 21:59 12/16/19 08:51 Chlorhexidine Gluconate (Katia-Hex 2%) 1 applic DAILY@2000 TOPIC 12/10/19 20:00 12/25/19 19:59 12/13/19 21:03 Dextrose (Dextrose 50%) 25 ml Q30M PRN IV Hypoglycemia 12/09/19 20:33 12/24/19 20:32 Dextrose (Dextrose 50%) 50 ml Q30M PRN IV Hypoglycemia 12/09/19 20:33 12/24/19 20:32 Docusate Sodium (Colace) 100 mg THREE TIMES A DAY ORAL 12/10/19 09:00 01/08/20 12:59 12/15/19 14:01 Epoetin Ricky (Epoetin Ricky(ESRD on dialysis)) 10,000 unit THU-THU-THU SUBQ 12/12/19 21:00 01/11/20 20:59 12/15/19 01:08 Heparin Sodium (Porcine) (Heparin 5000 units/ml) 5,000 units EVERY 12 HOURS SUBQ 12/09/19 21:00 01/02/20 21:59 12/15/19 21:18 Hydralazine HCl (Apresoline) 25 mg Q4H PRN ORAL bp over 160 syst 12/09/19 20:37 01/08/20 20:36 Hydralazine HCl (Apresoline) 25 mg Q8H ORAL 12/12/19 10:00 01/11/20 09:59 12/15/19 17:30 Insulin Aspart (NovoLOG) BEFORE MEALS AND HS SUBQ 12/09/19 21:00 01/02/20 21:13 Iron Sucrose 100 mg/Sodium Chloride 55 ml @ 200 mls/hr BEDTIME IV 12/10/19 21:00 12/19/19 21:17 12/13/19 21:04 Isosorbide Dinitrate (Isordil) 20 mg TID GT 12/10/19 09:00 01/01/20 08:59 12/16/19 08:52 Nitroglycerin (Ntg) 0.4 mg Q5M PRN SL Prn Chest Pain 12/09/19 20:30 01/02/20 21:16 Ondansetron HCl (Zofran) 4 mg Q6H PRN IVP Nausea & Vomiting 12/09/19 20:34 01/02/20 20:33 Pantoprazole (Protonix) 40 mg EVERY 12 HOURS ORAL 12/09/19 21:00 01/08/20 20:59 12/16/19 08:52 Polyethylene Glycol (Miralax) 17 gm DAILYPRN PRN NG Constipation 12/09/19 20:34 01/02/20 20:33 Promethazine HCl/ Codeine (Phenergan with Codeine) 5 ml Q4H PRN NG For Cough 12/09/19 20:34 01/02/20 20:33 12/15/19 09:02 Sevelamer Carbonate (Renvela) 2,400 mg THREE TIMES A DAY ORAL 12/10/19 09:00 01/07/20 12:59 12/16/19 08:52 Sodium Hypochlorite (Dakin's Quarter Strength) 1 applic DAILY TOPIC 12/10/19 09:00 01/07/20 08:59 12/16/19 08:51 Laboratory Tests 12/16/19 05:50: White Blood Count 8.9, Red Blood Count 3.16L, Hemoglobin 9.2L, Hematocrit 27.0L , Mean Corpuscular Volume 85, Mean Corpuscular Hemoglobin 29.2, Mean Corpuscular Hemoglobin Concent 34.1, Red Cell Distribution Width 12.9, Platelet Count 416, Mean Platelet Volume 5.1L, Neutrophils (%) (Auto) 65.5, Lymphocytes ( %) (Auto) 19.8L, Monocytes (%) (Auto) 7.9, Eosinophils (%) (Auto) 6.4H, Basophils (%) (Auto) 0.5, Sodium Level 132L, Potassium Level 4.3, Chloride Level 94L, Carbon Dioxide Level 24, Anion Gap 14, Blood Urea Nitrogen 83H, Creatinine 8.8H, Estimat Glomerular Filtration Rate 7.5, Glucose Level 98, Calcium Level 9.3, Phosphorus Level 6.0H, Magnesium Level 2.1, Total Bilirubin 0.3, Aspartate Amino Transf (AST/SGOT) 25, Alanine Aminotransferase (ALT/SGPT) 18, Alkaline Phosphatase 107, C-Reactive Protein, Quantitative 8.0H, Pro-B-Type Natriuretic Peptide 5730H, Total Protein 7.3, Albumin 2.1L, Globulin 5.2, Albumin/Globulin Ratio 0.4L Height (Feet): 5 Height (Inches): 8.00 Weight (Pounds): 225 General Appearance: no apparent distress Objective no change Tej Sidhu MD Dec 16, 2019 08:52
[2019-12-16] MEDS: Heparin 5000 units/ml inj SUBQ SCH ×2 (08:56→20:48)
[2019-12-16] MEDS: Docusate 100mg cap ORAL SCH ×3 (08:56→17:19)
--- NOTE | 2019-12-16 09:00 | NUR ---
NURSE NOTES: CALLED [facility] AND SPOKE WITH AUDREY TO SCHEDULE PATIENT HD FOR TODAY. WILL CONT THE PLAN OF CARE.
--- NOTE | 2019-12-16 09:45 | NUR ---
PT EVALUATION NOTE Patient seen for initial evaluation. Patient presents with deconditioning and generalized weakness which impairs patient's ability to perform mobility tasks safely. Prior to hospitalization patient was able to transfer to a wheelchair with supervision. Patient requires min assist for bed mobility. Attempted transfers however patient only able to lift buttocks slightly from surface of the bed, unable to assume standing position. Patient will benefit from skilled inpatient PT intervention to address strength, balance and safety for improved level of independence with functional mobility. Recommend discharge to SNF once medically cleared by MD. Addendum: 12/16/19 at 1053 by KVNG KUMAR PT Amended: Links added.
--- NOTE | 2019-12-16 10:47 | NUR ---
INSURANCE REVIEW FAXED TO [facility] DEPT [phone] AUTH# [id number] NCM: JARRED GONSALVES FAX ALL CLINICALS TO: [phone]
--- NOTE | 2019-12-16 13:24 | NUR ---
DISCHARGE PLANNING PAT[facility] P: [phone] F: [phone] Addendum: 12/16/19 at 1356 by BARBARA HEIN LVN LVN FOLLOW UP CALL MADE. S/W MAGALYS. CONFIRMED RECEIPT OF REFERRAL. [facility] WILL REVIEW AND WILL CALL BACK WITH ANSWER IF THEY ARE ABLE TO ACCEPT PATIENT AT THIS TIME. Addendum: 12/16/19 at 1511 by BARBARA HEIN LVN LVN CALLED RECEIVED FROM MAGALYS AT [facility] CONFIRMED THEY WILL ACCEPT PATIENT. [facility] HAVING DIFFICULTY OBTAINING AUTH [facility]. CALLED JARRED HAJI AT [facility] EXT [phone] AND INFORMED OF SNF ACCEPTANCE. PER JARRED, SHE WILL CALL MAGALYS [facility] [address] AND PROVIDE AUTH DIRECTLY TO HER.
--- NOTE | 2019-12-16 14:03 | NUR ---
DISCHARGE PLANNING PATIENT HAS BEEN REFERRED TO [facility] P: [phone] F: [phone] ATTN: FRANCOIS
--- NOTE | 2019-12-16 14:21 | Surgery Progress Note ---
Surgery Progress Note Subjective Procedure Performed Right femoral temporary hemodialysis catheter removal Additional Comments No acute events. Comfortable. Stable. Objective Last 24 Hour Vital Signs Date Time Temp Pulse Resp B/P (MAP) Pulse Ox O2 Delivery O2 Flow Rate FiO2 12/16/19 11:58 97.5 80 17 120/63 (82) 97 12/16/19 10:00 121/60 12/16/19 09:00 Nasal Cannula 2.0 Nasal Cannula 2.0 Nasal Cannula 2.0 12/16/19 08:52 121/60 12/16/19 08:51 88 121/60 12/16/19 08:00 97.9 88 18 121/60 (80) 98 12/16/19 04:00 97.8 76 18 129/60 (83) 99 12/16/19 02:00 101/63 12/16/19 00:00 98.4 80 18 128/61 (83) 100 12/15/19 23:44 99 Nasal Cannula 2.0 28 12/15/19 21:00 Nasal Cannula 2.0 Nasal Cannula 2.0 Nasal Cannula 2.0 12/15/19 20:56 79 124/73 12/15/19 20:00 98.1 80 18 118/74 (89) 100 12/15/19 19:00 97 Nasal Cannula 2.0 28 12/15/19 17:30 125/67 12/15/19 17:30 125/67 12/15/19 16:00 97.7 75 16 125/67 (86) 100 I&O Intake and Output 12/15/19 12/16/19 19:00 07:00 Intake Total 1000 ml 480 ml Output Total 500 ml Balance 1000 ml -20 ml Intake Oral 1000 ml 480 ml Output Urine Total 500 ml # Voids 6 # Bowel Movements 3 Dressing: dry Wound: clean Cardiovascular: RSR Respiratory: clear Abdomen: soft, flat, non-tender, present bowel sounds Extremities: no edema, no tenderness, no cyanosis Laboratory Tests Test 12/16/19 05:50 White Blood Count 8.9 K/UL (4.8-10.8) Red Blood Count 3.16 M/UL (4.70-6.10) L Hemoglobin 9.2 G/DL (14.2-18.0) L Hematocrit 27.0 % (42.0-52.0) L Mean Corpuscular Volume 85 FL (80-99) Mean Corpuscular Hemoglobin 29.2 PG (27.0-31.0) Mean Corpuscular Hemoglobin Concent 34.1 G/DL (32.0-36.0) Red Cell Distribution Width 12.9 % (11.6-14.8) Platelet Count 416 K/UL (150-450) Mean Platelet Volume 5.1 FL (6.5-10.1) L Neutrophils (%) (Auto) 65.5 % (45.0-75.0) Lymphocytes (%) (Auto) 19.8 % (20.0-45.0) L Monocytes (%) (Auto) 7.9 % (1.0-10.0) Eosinophils (%) (Auto) 6.4 % (0.0-3.0) H Basophils (%) (Auto) 0.5 % (0.0-2.0) Sodium Level 132 MMOL/L (136-145) L Potassium Level 4.3 MMOL/L (3.5-5.1) Chloride Level 94 MMOL/L (98-107) L Carbon Dioxide Level 24 MMOL/L (21-32) Anion Gap 14 mmol/L (5-15) Blood Urea Nitrogen 83 mg/dL (7-18) H Creatinine 8.8 MG/DL (0.55-1.30) H Estimat Glomerular Filtration Rate 7.5 mL/min (>60) Glucose Level 98 MG/DL (74-106) Calcium Level 9.3 MG/DL (8.5-10.1) Phosphorus Level 6.0 MG/DL (2.5-4.9) H Magnesium Level 2.1 MG/DL (1.8-2.4) Total Bilirubin 0.3 MG/DL (0.2-1.0) Aspartate Amino Transf (AST/SGOT) 25 U/L (15-37) Alanine Aminotransferase (ALT/SGPT) 18 U/L (12-78) Alkaline Phosphatase 107 U/L (46-116) C-Reactive Protein, Quantitative 8.0 mg/dL (0.00-0.90) H Pro-B-Type Natriuretic Peptide 5730 pg/mL (0-125) H Total Protein 7.3 G/DL (6.4-8.2) Albumin 2.1 G/DL (3.4-5.0) L Globulin 5.2 g/dL Albumin/Globulin Ratio 0.4 (1.0-2.7) L Plan Problems: (1) Septic shock Assessment & Plan: Patient in septic shock prior central line and pressors intubated on vent support in the intensive care unit tachycardic. Renal insufficiency requiring hemodialysis. Temporary hemodialysis catheter indicated and recommended Please see procedure note Dialysis as per nephrology IV antibiotics post per infectious disease Dressing changes as per protocol We will monitor site for hematoma or infection No further acute surgical intervention recommended at this time will follow with recommendations thank you for let me participate patient's care extubated improved downgraded discussed care plan with family consent obtained improved cath in place doing better d/c planning (2) Acute respiratory failure Assessment & Plan: DAILY ESTIMATED NEEDS: Needs based on Critical care, sepsis 75kg adj 22-28 kcals/kg 7248-4186 total kcals 1.2-2 g protein/kg 90-150 g total protein 25-30 mL/kg 1268-9482 total fluid mLs NUTRITION DIAGNOSIS: Swallowing difficulty r/t resp status as evidenced by septic shock now s/p intubation, w/ NGT, NPO at this time. ENTERAL NUTRITION RECOMMENDATIONS: Nepro @40ml/hr x24 hrs + Prosource BID to provide 960ml, 78g + 22 g pro, 698ml free H2O - As medically appropriate, rec non oral feeds via NGT - Start Nepro @20ml/hr for 6 hrs. Advance as tolerated 10ml/hr q4-6 hrs to goal. - Add Prosource BID to better meet est pro needs - Flush per . HOB over 30 degrees -------- ADDITIONAL RECOMMENDATIONS: 1) Tf recs as above, feed as medically able 2) Ad PROSOURCE VIA NGT BID to better meet est pro needs 3) Per SNF: 69inches tall, last wt of 210 lbs (2/3) -> rec weekly calibrated bed scale wts 4) ANIMAL GROOMER eval upon extubation (3) Sepsis Assessment & Plan: Tunneled right permacath placed (4) History of left below knee amputation Assessment & Plan: Wound stable dressings intact elevate with pillow This patient is improving he spent some time with him at the bedside. We turned him to the right lateral decubitus and evaluated the wound. Fortunately what was considered to be a stage IV wound is actually not and a significant amount of the necrotic tissues actually buildup of hair and dried skin protectant. A fair amount of time was spent doing non-excisional debridement with gauze and moist saline until the area was fully cleaned. Identified was a stage II skin breakdown mainly epidermis that looked like necrotic eschar but fortunately was just epidermis and underlying healthy viable dermis with back bleeding. Wound was cleansed and total edges were identified and intact minimal tenderness on palpation good blanching tissue noted surrounding it. Thera honey placed followed by gauze dressing and foam dressing. Discussed care plan with patient. He is very compliant with turning and states he will remain off his mind will stay off his sacrum as much as possible will follow with recommendations. For now Thera honey impregnated gauze and foam dressing. Turn every 2 hours. Nutritional optimization. Ranjit Ralph Dec 16, 2019 14:21
--- NOTE | 2019-12-16 14:35 | Infectious Diseases Prog Note ---
Assessment/Plan Assessment/Plan Assessment: Septic Shock- SP Pneumonia -12/01 CXR: probably unchanged bilateral diffuse interstitial and airspace disease. -11/30 sp cx:Interim marked worsening of bilateral pulmonary parenchymal disease, over one day -11/29 sp cx ESBL E.coli (S zosyn, Imipenem, bactrim) -11/24 u/a neg; ucx neg Bcx NTD influenza sc neg CXR: Bilateral dense consolidation, likely pneumonia. Pulmonary edema also possible. Correlate with clinical findings sp cx ordered,not done legionella ag urine neg S. hominis bacteremia- RIJ infection vs contamination - SP Perm Cath insertion 12/08 - HD Cath removed on 12/06 - RIJ removed on 12/02 -11/27 Bcx 1/4 S. hominis; 11/29 Bcx 1/2 S. hominis (RIJ), NTD x2 (peripheral) Low grade fever , Sp Leukocytosis, improving ARDS Acute respiratory failure s/p intubation 11/24, sp extubation 11/29, now on bipap GANGA on CKD; now on HD 11/27 Elevated LFTs;improving Troponinemia Dm2 Gout s/p L BKA allergic rhinitis CAD s/p stent prosthetic AVR hx of esophagitis PVD chronic sCHF HLD HTN SNF resident Plan: monitor pt off of AB Rx - 12/13 SP IV Vanco # 10/10 - Sp Meropenem # 10/10 for ESBL E.coli PNA -12/01 SP IV Vancomycin #8, Tamiflu #7 -11/30 SP LEvaquin #7, Cefepime #7 -Monitor CBC/CMP, temperatures -aspiration precautions Thank you for this consultation. Will continue to follow along with you. Subjective Allergies: Coded Allergies: No Known Allergies (Unverified , 11/24/19) Subjective comfortablY SLEEPING Objective Vital Signs Last 24 Hour Vital Signs Date Time Temp Pulse Resp B/P (MAP) Pulse Ox O2 Delivery O2 Flow Rate FiO2 12/16/19 11:58 97.5 80 17 120/63 (82) 97 12/16/19 10:00 121/60 12/16/19 09:00 Nasal Cannula 2.0 Nasal Cannula 2.0 Nasal Cannula 2.0 12/16/19 08:52 121/60 12/16/19 08:51 88 121/60 12/16/19 08:00 97.9 88 18 121/60 (80) 98 12/16/19 04:00 97.8 76 18 129/60 (83) 99 12/16/19 02:00 101/63 12/16/19 00:00 98.4 80 18 128/61 (83) 100 12/15/19 23:44 99 Nasal Cannula 2.0 28 12/15/19 21:00 Nasal Cannula 2.0 Nasal Cannula 2.0 Nasal Cannula 2.0 12/15/19 20:56 79 124/73 12/15/19 20:00 98.1 80 18 118/74 (89) 100 12/15/19 19:00 97 Nasal Cannula 2.0 28 12/15/19 17:30 125/67 12/15/19 17:30 125/67 12/15/19 16:00 97.7 75 16 125/67 (86) 100 Height (Feet): 5 Height (Inches): 8.00 Weight (Pounds): 225 Respiratory/Chest: lungs clear Cardiovascular: regular rhythm Abdomen: non distended Laboratory Tests Test 12/16/19 05:50 White Blood Count 8.9 K/UL (4.8-10.8) Red Blood Count 3.16 M/UL (4.70-6.10) L Hemoglobin 9.2 G/DL (14.2-18.0) L Hematocrit 27.0 % (42.0-52.0) L Mean Corpuscular Volume 85 FL (80-99) Mean Corpuscular Hemoglobin 29.2 PG (27.0-31.0) Mean Corpuscular Hemoglobin Concent 34.1 G/DL (32.0-36.0) Red Cell Distribution Width 12.9 % (11.6-14.8) Platelet Count 416 K/UL (150-450) Mean Platelet Volume 5.1 FL (6.5-10.1) L Neutrophils (%) (Auto) 65.5 % (45.0-75.0) Lymphocytes (%) (Auto) 19.8 % (20.0-45.0) L Monocytes (%) (Auto) 7.9 % (1.0-10.0) Eosinophils (%) (Auto) 6.4 % (0.0-3.0) H Basophils (%) (Auto) 0.5 % (0.0-2.0) Sodium Level 132 MMOL/L (136-145) L Potassium Level 4.3 MMOL/L (3.5-5.1) Chloride Level 94 MMOL/L (98-107) L Carbon Dioxide Level 24 MMOL/L (21-32) Anion Gap 14 mmol/L (5-15) Blood Urea Nitrogen 83 mg/dL (7-18) H Creatinine 8.8 MG/DL (0.55-1.30) H Estimat Glomerular Filtration Rate 7.5 mL/min (>60) Glucose Level 98 MG/DL (74-106) Calcium Level 9.3 MG/DL (8.5-10.1) Phosphorus Level 6.0 MG/DL (2.5-4.9) H Magnesium Level 2.1 MG/DL (1.8-2.4) Total Bilirubin 0.3 MG/DL (0.2-1.0) Aspartate Amino Transf (AST/SGOT) 25 U/L (15-37) Alanine Aminotransferase (ALT/SGPT) 18 U/L (12-78) Alkaline Phosphatase 107 U/L (46-116) C-Reactive Protein, Quantitative 8.0 mg/dL (0.00-0.90) H Pro-B-Type Natriuretic Peptide 5730 pg/mL (0-125) H Total Protein 7.3 G/DL (6.4-8.2) Albumin 2.1 G/DL (3.4-5.0) L Globulin 5.2 g/dL Albumin/Globulin Ratio 0.4 (1.0-2.7) L Current Medications Medications (Trade) Dose Ordered Sig/Valeriano Route PRN Reason Start Time Stop Time Status Last Admin Dose Admin Acetaminophen (Tylenol) 650 mg Q4H PRN NG Mild Pain/Temp > 100.5 12/09/19 20:33 01/02/20 20:32 12/15/19 03:56 Carvedilol (Coreg) 12.5 mg EVERY 12 HOURS NG 12/09/19 21:00 01/02/20 21:59 12/16/19 08:51 Chlorhexidine Gluconate (Katia-Hex 2%) 1 applic DAILY@2000 TOPIC 12/10/19 20:00 12/25/19 19:59 12/13/19 21:03 Dextrose (Dextrose 50%) 25 ml Q30M PRN IV Hypoglycemia 2/28/20 20:33 12/24/19 20:32 Dextrose (Dextrose 50%) 50 ml Q30M PRN IV Hypoglycemia 12/09/19 20:33 12/24/19 20:32 Docusate Sodium (Colace) 100 mg THREE TIMES A DAY ORAL 12/10/19 09:00 01/08/20 12:59 12/15/19 14:01 Epoetin Ricky (Epoetin Ricky(ESRD on dialysis)) 10,000 unit THU-THU-THU SUBQ 12/12/19 21:00 01/11/20 20:59 12/15/19 01:08 Heparin Sodium (Porcine) (Heparin 5000 units/ml) 5,000 units EVERY 12 HOURS SUBQ 12/09/19 21:00 01/02/20 21:59 12/15/19 21:18 Hydralazine HCl (Apresoline) 25 mg Q4H PRN ORAL bp over 160 syst 12/09/19 20:37 01/08/20 20:36 Hydralazine HCl (Apresoline) 25 mg Q8H ORAL 12/12/19 10:00 01/11/20 09:59 12/15/19 17:30 Insulin Aspart (NovoLOG) BEFORE MEALS AND HS SUBQ 12/09/19 21:00 01/02/20 21:13 Iron Sucrose 100 mg/Sodium Chloride 55 ml @ 200 mls/hr BEDTIME IV 12/10/19 21:00 12/19/19 21:17 12/13/19 21:04 Isosorbide Dinitrate (Isordil) 20 mg TID GT 12/10/19 09:00 01/01/20 08:59 12/16/19 08:52 Nitroglycerin (Ntg) 0.4 mg Q5M PRN SL Prn Chest Pain 12/09/19 20:30 01/02/20 21:16 Ondansetron HCl (Zofran) 4 mg Q6H PRN IVP Nausea & Vomiting 12/09/19 20:34 01/02/20 20:33 Pantoprazole (Protonix) 40 mg EVERY 12 HOURS ORAL 12/09/19 21:00 01/08/20 20:59 12/16/19 08:52 Polyethylene Glycol (Miralax) 17 gm DAILYPRN PRN NG Constipation 12/09/19 20:34 01/02/20 20:33 Promethazine HCl/ Codeine (Phenergan with Codeine) 5 ml Q4H PRN NG For Cough 12/09/19 20:34 01/02/20 20:33 12/15/19 09:02 Sevelamer Carbonate (Renvela) 2,400 mg THREE TIMES A DAY ORAL 12/10/19 09:00 01/07/20 12:59 12/16/19 08:52 Sodium Hypochlorite (Dakin's Quarter Strength) 1 applic DAILY TOPIC 12/10/19 09:00 01/07/20 08:59 12/16/19 08:51 Gabe Bush MD Dec 16, 2019 14:35
--- NOTE | 2019-12-16 15:21 | NUR ---
NURSE NOTES: spoke with Dr Roblero covering for Dr Ceja and will take care of discharge. will cont to monitor.
[2019-12-16] MEDS ORDERED: HIBICLENS118 ML TOPIC (16:42)
[2019-12-16] MEDS ORDERED: MIRALAX119 GM NG (16:42)
[2019-12-16] MEDS ORDERED: PANTOPRAZOLE SO40 MG ORAL (16:42)
[2019-12-16] MEDS ORDERED: COREG12.5 MG NG (16:42)
[2019-12-16] MEDS ORDERED: ISOSORBIDE DINI10 MG GT (16:42)
[2019-12-16] MEDS ORDERED: Acetaminophen NG (16:42)
[2019-12-16] MEDS ORDERED: DAKIN'S1 APPLI1 TOPIC (16:42)
[2019-12-16] MEDS ORDERED: RENVELA800 MG ORAL (16:42)
[2019-12-16] MEDS ORDERED: NITRO0.4 SL (16:42)
[2019-12-16] MEDS ORDERED: HEPARIN SO5000 UNIT2 SUBQ (16:42)
[2019-12-16] MEDS ORDERED: HYDRALAZINE HCL25 M1 ORAL ×2 (16:42)
[2019-12-16] MEDS ORDERED: COLACE100 MG ORAL (16:42)
--- NOTE | 2019-12-16 16:44 | NUR ---
CASE MANAGEMENT:REVIEW SI;PNA. SEPSIS. RESPIRATORY FAILURE. AC RENAL FAILURE. 98.4 88 17 121/60 97% 2L NC H/H 9.2/27.0 NA 132 CL 94 IS;HYDRALAZINE PO Q8 HRS IRON SUCROSE IV HS CHRISTINA HEX TOP QD ISORDIL PO TID COREG PO Q12 HRS HEPARIN SUBQ Q12 HRS MED SURG STATUS DCP;[facility]
--- NOTE | 2019-12-16 16:50 | Discharge Summary ---
Discharge Summary Hospital Course Date of Admission Nov 24, 2019 at 02:46 Date of Discharge 12/16/19 Admitting Diagnosis sepsis, HCAP, renal failure. HPI Antony Arellano is a 59 year old male who was admitted on Nov 24, 2019 at 02:46 for Sepsis,Health Care Associated Pneumonia Consultations renal id Procedures permacath Hospital Course 59 Y/O MALE admitted from SNF with shortness of breath and diagnosed with pneumonia and septic shock. He was transferred to the ICU and intubated. Antibiotics were started and gradual weaning from the ventilator was done with pulmonary - ID web consultant support. Septic Shock- SP Pneumonia -12/01 CXR: probably unchanged bilateral diffuse interstitial and airspace disease. -11/30 sp cx:Interim marked worsening of bilateral pulmonary parenchymal disease, over one day -11/29 sp cx ESBL E.coli (S zosyn, Imipenem, bactrim) -11/24 u/a neg; ucx neg Bcx NTD influenza sc neg CXR: Bilateral dense consolidation, likely pneumonia. Pulmonary edema also possible. Correlate with clinical findings sp cx ordered,not done legionella ag urine neg S. hominis bacteremia- RIJ infection vs contamination - SP Perm Cath insertion 12/08 - HD Cath removed on 12/06 - RIJ removed on 12/02 -11/27 Bcx 1/4 S. hominis; 11/29 Bcx 1/2 S. hominis (RIJ), NTD x2 (peripheral) ARDS Acute respiratory failure s/p intubation 11/24, sp extubation 11/29, now on bipap GANGA on CKD; now on HD 11/27 and tolerating well. Last HD today 12/15/19 Chronic problems: Dm2 Gout s/p L BKA allergic rhinitis CAD s/p stent prosthetic AVR hx of esophagitis PVD chronic sCHF HLD HTN SNF resident Plan: monitor pt off of AB Rx, continue HD and follow up SNF care at [facility]. - 12/13 SP IV Vanco # 10/10 - Sp Meropenem # 10/10 for ESBL E.coli PNA -12/01 SP IV Vancomycin #8, Tamiflu #7 -11/30 SP LEvaquin #7, Cefepime #7 Discharge Medications New Medications: [Acetaminophen] () 650 MG/20.3 ML SOLN 650 MG NG Q4H PRN for 30 Days, #60 Carvedilol (Coreg) 12.5 Mg Tablet 12.5 MG NG EVERY 12 HOURS for 60 Days, TAB HOLD IF HR LESS THAN 60 OR SBP LESS 110 Chlorhexidine Gluconate* (Hibiclens*) 118 Ml Liquid 1 APPLIC TOPIC DAILY@1999 for 30 Days, #120 ML 9 Refills clean body from neck to knees daily Docusate Sodium* (Colace*) 100 Mg Capsule 100 MG ORAL THREE TIMES A DAY for 30 Days, #90 CAP Heparin Sod (Porcine) (Heparin Sodium*) 5 000/1 Ml Vial 5000 UNITS SUBQ EVERY 12 HOURS for 30 Days, #60 VIAL Hydralazine Hcl* (Hydralazine Hcl*) 25 Mg Tablet 25 MG ORAL Q4H PRN for 60 Days, #90 TAB Prn IF SBP GREATER THAN 160 Hydralazine Hcl* (Hydralazine Hcl*) 25 Mg Tablet 25 MG ORAL Q8H for 60 Days, #120 TAB hold if sbp less than 110 Isosorbide Dinitrate* (Isordil*) 10 Mg Tablet 20 MG GT TID for 30 Days, #90 TAB hold if sbp less than 110 Nitroglycerin 0.4MG table* (Nitroglycerin*) 0.4 Mg Tab.subl 0.4 MG SL Q5M PRN for 30 Days, #60 TAB prn chest pain Pantoprazole* (Pantoprazole*) 40 Mg Tablet.dr 40 MG ORAL EVERY 12 HOURS for 30 Days, #60 TAB Polyethylene Glycol 3350 (Miralax) 119 Gm Powder 17 GM NG DAILYPRN PRN for 30 Days, #90 GM Sevelamer Carbonate (Renvela) 800 Mg Tablet 2400 MG ORAL THREE TIMES A DAY for 30 Days, #90 TAB Sodium Hypochlorite (Dakin's) 473 Ml Solution 1 APPLIC TOPIC DAILY for 30 Days, #30 EA Clean sacral wound Continued Medications: Atorvastatin Calcium* (Atorvastatin Calcium*) 40 Mg Tablet 80 MG ORAL BEDTIME for Hyperlipidemia, TAB Discharge Condition Upon Discharge: stable Discharge Vital Signs Last Vital Signs Date Time Temp Pulse Resp B/P (MAP) Pulse Ox O2 Delivery O2 Flow Rate FiO2 12/16/19 11:58 97.5 80 17 120/63 (82) 97 12/16/19 09:00 Nasal Cannula 2.0 Nasal Cannula 2.0 Nasal Cannula 2.0 12/15/19 23:44 28 Discharge Disposition Patient was discharged to [facility] Discharge Diagnoses: (1) Acute respiratory failure (2) Acute on chronic systolic heart failure (3) ARDS (adult respiratory distress syndrome) (4) Septic shock (5) ESRD (end stage renal disease) (6) Anemia (7) Sepsis (8) HCAP (healthcare-associated pneumonia) (9) History of gout (10) History of hypertension (11) Diabetes mellitus (12) prostetic heart valve (13) History of left below knee amputation (14) Chronic systolic heart failure Miriam Roblero MD Dec 16, 2019 16:50
--- NOTE | 2019-12-16 19:07 | NUR ---
HAND-OFF: Report given to
--- NOTE | 2019-12-16 19:31 | NUR ---
NURSE NOTES: Pt is awake, alert and orientedX4 Pt. On NC 2L. No complaints of pain or respiratory distress noted. Dialysis site on right chest PermCath dressing dry and intact. Bed is low and locked, side rails x2 up, bed alarm active, and call light is in reach. Will continue to monitor.
[2019-12-16] MEDS: Epoetin Alfa-EPBX(ESRD on dialysis)10,000 unit/ml vial SUBQ SCH (20:54)
[2019-12-16] MEDS: Dyna-Hex 2% Top Sol 2oz TOPIC SCH (22:28)
[2019-12-17] MEDS: HydrALAZINE 25mg tab ORAL SCH ×3 (02:07→17:26)
[2019-12-17 04:00] VITALS: BP 132/69
[2019-12-17] MEDS: NovoLOG Insulin Flexpen SUBQ SCH ×4 (06:18→20:52)
--- NOTE | 2019-12-17 07:29 | NUR ---
HAND-OFF: Report given to THAI Leach.
[2019-12-17 08:00] VITALS: BP 132/67
[2019-12-17] MEDS: Docusate 100mg cap ORAL SCH ×3 (08:48→17:27)
[2019-12-17] MEDS: Carvedilol 12.5mg tab NG SCH ×2 (08:48→20:51)
[2019-12-17] MEDS: Heparin 5000 units/ml inj SUBQ SCH ×2 (08:49→20:52)
[2019-12-17] MEDS: Dakin's 0.125% Soln (Quarter Strength) 16oz TOPIC SCH (08:49)
--- NOTE | 2019-12-17 10:12 | Infectious Diseases Prog Note ---
Assessment/Plan Assessment/Plan Assessment: Septic Shock- SP Pneumonia -12/01 CXR: probably unchanged bilateral diffuse interstitial and airspace disease. -11/30 sp cx:Interim marked worsening of bilateral pulmonary parenchymal disease, over one day -11/29 sp cx ESBL E.coli (S zosyn, Imipenem, bactrim) -11/24 u/a neg; ucx neg Bcx NTD influenza sc neg CXR: Bilateral dense consolidation, likely pneumonia. Pulmonary edema also possible. Correlate with clinical findings sp cx ordered,not done legionella ag urine neg S. hominis bacteremia- RIJ infection vs contamination - SP Perm Cath insertion 12/08 - HD Cath removed on 12/06 - RIJ removed on 12/02 -11/27 Bcx 1/4 S. hominis; 11/29 Bcx 1/2 S. hominis (RIJ), NTD x2 (peripheral) Low grade fever , Sp Leukocytosis, Sp ARDS Acute respiratory failure s/p intubation 11/24, sp extubation 11/29, now on bipap GANGA on CKD; now on HD 11/27 Elevated LFTs;improving Troponinemia Dm2 Gout s/p L BKA allergic rhinitis CAD s/p stent prosthetic AVR hx of esophagitis PVD chronic sCHF HLD HTN SNF resident Plan: monitor pt off of AB Rx - 12/13 SP IV Vanco # 10/10 - Sp Meropenem # 10/10 for ESBL E.coli PNA -12/01 SP IV Vancomycin #8, Tamiflu #7 -11/30 SP LEvaquin #7, Cefepime #7 -Monitor CBC/CMP, temperatures -aspiration precautions Thank you for this consultation. Will continue to follow along with you. Subjective Allergies: Coded Allergies: No Known Allergies (Unverified , 11/24/19) Subjective no acute event Objective Vital Signs Last 24 Hour Vital Signs Date Time Temp Pulse Resp B/P (MAP) Pulse Ox O2 Delivery O2 Flow Rate FiO2 12/17/19 09:00 Nasal Cannula 2.0 Nasal Cannula 2.0 12/17/19 08:49 132/67 12/17/19 08:48 76 132/67 12/17/19 08:00 97.8 76 18 132/67 (88) 99 12/17/19 04:00 98.1 72 20 132/69 (90) 100 12/17/19 02:07 142/71 12/16/19 23:48 98.1 89 20 142/71 (94) 99 12/16/19 21:00 Nasal Cannula 2.0 Nasal Cannula 2.0 Nasal Cannula 2.0 12/16/19 20:47 88 132/65 12/16/19 20:00 98.3 88 17 132/65 (87) 99 12/16/19 19:55 98 Nasal Cannula 2.0 28 12/16/19 17:19 119/72 12/16/19 17:19 119/72 12/16/19 16:00 98.4 74 17 119/72 (88) 97 12/16/19 11:58 97.5 80 17 120/63 (82) 97 Height (Feet): 5 Height (Inches): 8.00 Weight (Pounds): 224 HEENT: anicteric Respiratory/Chest: no respiratory distress Cardiovascular: regular rhythm Abdomen: no organomegaly Current Medications Medications (Trade) Dose Ordered Sig/Valeriano Route PRN Reason Start Time Stop Time Status Last Admin Dose Admin Acetaminophen (Tylenol) 650 mg Q4H PRN NG Mild Pain/Temp > 100.5 12/09/19 20:33 01/02/20 20:32 12/15/19 03:56 Carvedilol (Coreg) 12.5 mg EVERY 12 HOURS NG 12/09/19 21:00 01/02/20 21:59 12/17/19 08:48 Chlorhexidine Gluconate (Katia-Hex 2%) 1 applic DAILY@2000 TOPIC 12/10/19 20:00 12/25/19 19:59 12/16/19 22:28 Dextrose (Dextrose 50%) 25 ml Q30M PRN IV Hypoglycemia 12/09/19 20:33 12/24/19 20:32 Dextrose (Dextrose 50%) 50 ml Q30M PRN IV Hypoglycemia 12/09/19 20:33 12/24/19 20:32 Docusate Sodium (Colace) 100 mg THREE TIMES A DAY ORAL 12/10/19 09:00 01/08/20 12:59 12/17/19 08:48 Epoetin Ricky (Epoetin Ricky(ESRD on dialysis)) 10,000 unit THU-THU-THU SUBQ 12/12/19 21:00 01/11/20 20:59 12/16/19 20:54 Heparin Sodium (Porcine) (Heparin 5000 units/ml) 5,000 units EVERY 12 HOURS SUBQ 12/09/19 21:00 01/02/20 21:59 12/17/19 08:49 Hydralazine HCl (Apresoline) 25 mg Q4H PRN ORAL bp over 160 syst 12/09/19 20:37 01/08/20 20:36 Hydralazine HCl (Apresoline) 25 mg Q8H ORAL 12/12/19 10:00 01/11/20 09:59 12/17/19 02:07 Insulin Aspart (NovoLOG) BEFORE MEALS AND HS SUBQ 12/09/19 21:00 01/02/20 21:13 12/17/19 06:18 Iron Sucrose 100 mg/Sodium Chloride 55 ml @ 200 mls/hr BEDTIME IV 12/10/19 21:00 12/19/19 21:17 12/16/19 20:49 Isosorbide Dinitrate (Isordil) 20 mg TID GT 12/10/19 09:00 01/01/20 08:59 12/17/19 08:49 Nitroglycerin (Ntg) 0.4 mg Q5M PRN SL Prn Chest Pain 12/09/19 20:30 01/02/20 21:16 Ondansetron HCl (Zofran) 4 mg Q6H PRN IVP Nausea & Vomiting 12/09/19 20:34 01/02/20 20:33 Pantoprazole (Protonix) 40 mg EVERY 12 HOURS ORAL 12/09/19 21:00 01/08/20 20:59 12/17/19 08:48 Polyethylene Glycol (Miralax) 17 gm DAILYPRN PRN NG Constipation 12/09/19 20:34 01/02/20 20:33 Promethazine HCl/ Codeine (Phenergan with Codeine) 5 ml Q4H PRN NG For Cough 12/09/19 20:34 01/02/20 20:33 12/15/19 09:02 Sevelamer Carbonate (Renvela) 2,400 mg THREE TIMES A DAY ORAL 12/10/19 09:00 01/07/20 12:59 12/17/19 08:48 Sodium Hypochlorite (Dakin's Quarter Strength) 1 applic DAILY TOPIC 12/10/19 09:00 01/07/20 08:59 12/17/19 08:49 Gabe Bush MD Dec 17, 2019 10:12
--- NOTE | 2019-12-17 11:40 | NUR ---
NURSE NOTES: per Dr Sidhu patient can be discharged tomorrow after HD and resume HD on thursday @ [facility]. Relayed to Greta KHAN. will cont to monitor.
--- NOTE | 2019-12-17 11:54 | General Progress Note ---
Assessment/Plan Status: stable, progressing Assessment/Plan: 59 Y/O MALE admitted from SNF with shortness of breath and diagnosed with pneumonia and septic shock. He was transferred to the ICU and intubated. Antibiotics were started and gradual weaning from the ventilator was done with pulmonary - ID strategy planning consultant support. Septic Shock- SP Pneumonia -12/01 CXR: probably unchanged bilateral diffuse interstitial and airspace disease. -11/30 sp cx:Interim marked worsening of bilateral pulmonary parenchymal disease, over one day -11/29 sp cx ESBL E.coli (S zosyn, Imipenem, bactrim) -11/24 u/a neg; ucx neg Bcx NTD influenza sc neg CXR: Bilateral dense consolidation, likely pneumonia. Pulmonary edema also possible. Correlate with clinical findings sp cx ordered,not done legionella ag urine neg S. hominis bacteremia- RIJ infection vs contamination - SP Perm Cath insertion 12/08 - HD Cath removed on 12/06 - RIJ removed on 12/02 -11/27 Bcx 1/4 S. hominis; 11/29 Bcx 1/2 S. hominis (RIJ), NTD x2 (peripheral) ARDS Acute respiratory failure s/p intubation 11/24, sp extubation 11/29, now on bipap GANGA on CKD; now on HD 11/27 and tolerating well. Last HD today 12/16/19. Dr. Tej Sidhu is coordinating outpatient HD at [facility] [phone] Chronic problems: Dm2 Gout s/p L BKA allergic rhinitis CAD s/p stent prosthetic AVR hx of esophagitis PVD chronic sCHF HLD HTN SNF resident Plan: monitor pt off of AB Rx, continue HD and follow up SNF care at [facility] once stable. Goal DC Thursday AFTER HD. Discussed with Dr. Sidhu. - 12/13 SP IV Vanco # 10/10 - Sp Meropenem # 10/10 for ESBL E.coli PNA -12/01 SP IV Vancomycin #8, Tamiflu #7 -11/30 SP LEvaquin #7, Cefepime #7 Subjective Date patient seen: Dec 16, 2019 Time patient seen: 13:50 Allergies: Coded Allergies: No Known Allergies (Unverified , 11/24/19) All Systems: reviewed and negative except above Subjective Feels well, getting HD today. 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
--- NOTE | 2019-12-17 11:57 | General Progress Note ---
Assessment/Plan Status: stable, progressing Assessment/Plan: 59 Y/O MALE admitted from SNF with shortness of breath and diagnosed with pneumonia and septic shock. He was transferred to the ICU and intubated. Antibiotics were started and gradual weaning from the ventilator was done with pulmonary - ID call center consultant and Renal support. Septic Shock- SP Pneumonia -12/01 CXR: probably unchanged bilateral diffuse interstitial and airspace disease. -11/30 sp cx:Interim marked worsening of bilateral pulmonary parenchymal disease, over one day -11/29 sp cx ESBL E.coli (S zosyn, Imipenem, bactrim) -11/24 u/a neg; ucx neg Bcx NTD influenza sc neg CXR: Bilateral dense consolidation, likely pneumonia. Pulmonary edema also possible. Correlate with clinical findings sp cx ordered,not done legionella ag urine neg S. hominis bacteremia- RIJ infection vs contamination - SP Perm Cath insertion 12/08 - HD Cath removed on 12/06 - RIJ removed on 12/02 -11/27 Bcx 1/4 S. hominis; 11/29 Bcx 1/2 S. hominis (RIJ), NTD x2 (peripheral) ARDS Acute respiratory failure s/p intubation 11/24, sp extubation 11/29, now on bipap GANGA on CKD; now on HD 11/27 and tolerating well. Last HD 12/16/19. Dr. Tej Sidhu arranged outpatient HD at [facility] [phone] Plan HD tomorrow AM then dc to SNF Chronic problems: Dm2 Gout s/p L BKA allergic rhinitis CAD s/p stent prosthetic AVR hx of esophagitis PVD chronic sCHF HLD HTN SNF resident Plan: monitor pt off of AB Rx, continue HD and follow up SNF care at [facility] once stable. Goal DC Thursday AFTER HD. Discussed with Dr. Sidhu. - 12/13 SP IV Vanco # 10/10 - Sp Meropenem # 10/10 for ESBL E.coli PNA -12/01 SP IV Vancomycin #8, Tamiflu #7 -11/30 SP LEvaquin #7, Cefepime #7 Subjective Date patient seen: Dec 17, 2019 Time patient seen: 11:00 Allergies: Coded Allergies: No Known Allergies (Unverified , 11/24/19) All Systems: reviewed and negative except above Subjective Feels well, he was not transferred to SNF last night. Objective Last 24 Hour Vital Signs Date Time Temp Pulse Resp B/P (MAP) Pulse Ox O2 Delivery O2 Flow Rate FiO2 12/17/19 09:00 Nasal Cannula 2.0 Nasal Cannula 2.0 12/17/19 08:49 132/67 12/17/19 08:48 76 132/67 12/17/19 08:00 97.8 76 18 132/67 (88) 99 12/17/19 04:00 98.1 72 20 132/69 (90) 100 12/17/19 02:07 142/71 12/16/19 23:48 98.1 89 20 142/71 (94) 99 12/16/19 21:00 Nasal Cannula 2.0 Nasal Cannula 2.0 Nasal Cannula 2.0 12/16/19 20:47 88 132/65 12/16/19 20:00 98.3 88 17 132/65 (87) 99 12/16/19 19:55 98 Nasal Cannula 2.0 28 12/16/19 17:19 119/72 12/16/19 17:19 119/72 12/16/19 16:00 98.4 74 17 119/72 (88) 97 12/16/19 11:58 97.5 80 17 120/63 (82) 97 Intake and Output 12/16/19 12/17/19 19:00 07:00 Intake Total 1000 ml 320 ml Balance 1000 ml 320 ml Intake Oral 320 ml Other 1000 ml # Voids 1 # Bowel Movements 2 Height (Feet): 5 Height (Inches): 8.00 Weight (Pounds): 224 General Appearance: WD/WN, no apparent distress EENT: PERRL/EOMI Neck: non-tender, normal alignment Cardiovascular: normal rate Respiratory/Chest: lungs clear, normal breath sounds Edema: trace edema 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
[2019-12-17 12:04] VITALS: BP 106/56
--- NOTE | 2019-12-17 13:11 | Nephrology Progress Note ---
Assessment/Plan Problem List: (1) ARF (acute renal failure) (2) Acute respiratory failure (3) Septic shock (4) Anemia (5) History of hypertension (6) Diabetes mellitus (7) Acute on chronic systolic heart failure Assessment: ej Fx 40 Assessment Acute renal failure- ? Underlying CKD Respiratory failure Anemia Sepsis / Shock ? Pneumonia DM HTN by history Gout left BKA Cardiomyopathy - Ej Fx 40% Plan Patient was supposed to be discharged yesterday and go to outpatient dialysis center today The discharge was not done and today the patient cannot receive outpatient dialysis His outpatient dialysis days are arranged for Thursday Hence we will dialyze the patient tomorrow and then discharge so he can safely receive his next dialysis as outpatient on December 22 Today the hemoglobin has improved Continue to monitor hemoglobin and hematocrit. Transfusion as needed. Has permacath-last dialysis 12/15 phos binders Adjust blood pressure medications. Coreg hydralazine previously DC Hydrocortisone Antibiotics urine studies avoid nephrotoxics monitor renal parameters Anemia hairston per orders Subjective ROS Limited/Unobtainable: No Objective Objective Last 24 Hour Vital Signs Date Time Temp Pulse Resp B/P (MAP) Pulse Ox O2 Delivery O2 Flow Rate FiO2 12/17/19 12:04 97.4 76 18 106/56 (73) 100 12/17/19 10:00 105/56 12/17/19 09:00 Nasal Cannula 2.0 Nasal Cannula 2.0 12/17/19 08:49 132/67 12/17/19 08:48 76 132/67 12/17/19 08:00 97.8 76 18 132/67 (88) 99 12/17/19 04:00 98.1 72 20 132/69 (90) 100 12/17/19 02:07 142/71 12/16/19 23:48 98.1 89 20 142/71 (94) 99 12/16/19 21:00 Nasal Cannula 2.0 Nasal Cannula 2.0 Nasal Cannula 2.0 12/16/19 20:47 88 132/65 12/16/19 20:00 98.3 88 17 132/65 (87) 99 12/16/19 19:55 98 Nasal Cannula 2.0 28 12/16/19 17:19 119/72 12/16/19 17:19 119/72 12/16/19 16:00 98.4 74 17 119/72 (88) 97 Intake and Output 12/16/19 12/17/19 19:00 07:00 Intake Total 1000 ml 320 ml Balance 1000 ml 320 ml Intake Oral 320 ml Other 1000 ml # Voids 1 # Bowel Movements 2 Current Medications Medications (Trade) Dose Ordered Sig/Valeriano Route PRN Reason Start Time Stop Time Status Last Admin Dose Admin Acetaminophen (Tylenol) 650 mg Q4H PRN NG Mild Pain/Temp > 100.5 12/09/19 20:33 01/02/20 20:32 12/15/19 03:56 Carvedilol (Coreg) 12.5 mg EVERY 12 HOURS NG 12/09/19 21:00 01/02/20 21:59 12/17/19 08:48 Chlorhexidine Gluconate (Katia-Hex 2%) 1 applic DAILY@1999 TOPIC 12/10/19 20:00 12/25/19 19:59 12/16/19 22:28 Dextrose (Dextrose 50%) 25 ml Q30M PRN IV Hypoglycemia 12/09/19 20:33 12/24/19 20:32 Dextrose (Dextrose 50%) 50 ml Q30M PRN IV Hypoglycemia 12/09/19 20:33 12/24/19 20:32 Docusate Sodium (Colace) 100 mg THREE TIMES A DAY ORAL 12/10/19 09:00 01/08/20 12:59 12/17/19 08:48 Epoetin Ricky (Epoetin Ricky(ESRD on dialysis)) 10,000 unit THU-WED-THU SUBQ 12/12/19 21:00 01/11/20 20:59 12/16/19 20:54 Heparin Sodium (Porcine) (Heparin 5000 units/ml) 5,000 units EVERY 12 HOURS SUBQ 12/09/19 21:00 01/02/20 21:59 12/17/19 08:49 Hydralazine HCl (Apresoline) 25 mg Q4H PRN ORAL bp over 160 syst 12/09/19 20:37 01/08/20 20:36 Hydralazine HCl (Apresoline) 25 mg Q8H ORAL 12/12/19 10:00 01/11/20 09:59 12/17/19 02:07 Insulin Aspart (NovoLOG) BEFORE MEALS AND HS SUBQ 12/09/19 21:00 01/02/20 21:13 12/17/19 06:18 Iron Sucrose 100 mg/Sodium Chloride 55 ml @ 200 mls/hr BEDTIME IV 12/10/19 21:00 12/19/19 21:17 12/16/19 20:49 Isosorbide Dinitrate (Isordil) 20 mg TID GT 12/10/19 09:00 01/01/20 08:59 12/17/19 08:49 Nitroglycerin (Ntg) 0.4 mg Q5M PRN SL Prn Chest Pain 12/09/19 20:30 01/02/20 21:16 Ondansetron HCl (Zofran) 4 mg Q6H PRN IVP Nausea & Vomiting 12/09/19 20:34 01/02/20 20:33 Pantoprazole (Protonix) 40 mg EVERY 12 HOURS ORAL 12/09/19 21:00 01/08/20 20:59 12/17/19 08:48 Polyethylene Glycol (Miralax) 17 gm DAILYPRN PRN NG Constipation 12/09/19 20:34 01/02/20 20:33 Promethazine HCl/ Codeine (Phenergan with Codeine) 5 ml Q4H PRN NG For Cough 12/09/19 20:34 01/02/20 20:33 12/15/19 09:02 Sevelamer Carbonate (Renvela) 2,400 mg THREE TIMES A DAY ORAL 12/10/19 09:00 01/07/20 12:59 12/17/19 08:48 Sodium Hypochlorite (Dakin's Quarter Strength) 1 applic DAILY TOPIC 12/10/19 09:00 01/07/20 08:59 12/17/19 08:49 Height (Feet): 5 Height (Inches): 8.00 Weight (Pounds): 224 General Appearance: no apparent distress Cardiovascular: normal rate Abdomen: soft Objective no change Tej Sidhu MD Dec 17, 2019 13:11
--- NOTE | 2019-12-17 13:27 | NUR ---
NURSE NOTES: Called [facility] and spoke with [place]. will cont to monitor,
[2019-12-17 16:00] VITALS: BP 120/66
--- NOTE | 2019-12-17 19:13 | NUR ---
HAND-OFF: Report given to
--- NOTE | 2019-12-17 19:20 | NUR ---
NURSE NOTES: Pt is awake, AOx4, On NC 2L, no respiratory distress noted. Dialysis site on right chest PermCath dressing dry and intact. Dressing to sacrum dry and intact. Bed in low and locked position, side rails x2 up, bed alarm active, and call light is in reach. Will continue to monitor.
[2019-12-17 20:00] VITALS: BP 114/69
[2019-12-17] MEDS: Dyna-Hex 2% Top Sol 2oz TOPIC SCH (20:50)
--- NOTE | 2019-12-17 22:08 | Surgery Progress Note ---
Surgery Progress Note Subjective Procedure Performed Right femoral temporary hemodialysis catheter removal Additional Comments improving no n/v/f/c comfortable wants to sit up and eventually walk knows laying flat ion back too long and will turn more Objective Last 24 Hour Vital Signs Date Time Temp Pulse Resp B/P (MAP) Pulse Ox O2 Delivery O2 Flow Rate FiO2 12/17/19 21:00 Nasal Cannula 2.0 Nasal Cannula 2.0 12/17/19 20:51 76 125/72 12/17/19 20:00 98.1 74 18 114/69 (84) 100 12/17/19 19:51 99 Nasal Cannula 2.0 28 12/17/19 17:26 120/66 12/17/19 17:26 120/66 12/17/19 16:00 98.1 72 19 120/66 (84) 100 12/17/19 13:00 106/56 12/17/19 12:04 97.4 76 18 106/56 (73) 100 12/17/19 10:00 105/56 12/17/19 09:00 Nasal Cannula 2.0 Nasal Cannula 2.0 12/17/19 08:49 132/67 12/17/19 08:48 76 132/67 12/17/19 08:00 97.8 76 18 132/67 (88) 99 12/17/19 04:00 98.1 72 20 132/69 (90) 100 12/17/19 02:07 142/71 12/16/19 23:48 98.1 89 20 142/71 (94) 99 I&O Intake and Output 12/16/19 12/17/19 19:00 07:00 Intake Total 1000 ml 320 ml Balance 1000 ml 320 ml Intake Oral 320 ml Other 1000 ml # Voids 1 # Bowel Movements 2 Dressing: saturated Wound: clean Cardiovascular: RSR Respiratory: clear Abdomen: soft, non-tender, present bowel sounds Extremities: no edema, no tenderness, no cyanosis Plan Problems: (1) Septic shock Assessment & Plan: Patient in septic shock prior central line and pressors intubated on vent support in the intensive care unit tachycardic. Renal insufficiency requiring hemodialysis. Temporary hemodialysis catheter indicated and recommended Please see procedure note Dialysis as per nephrology IV antibiotics post per infectious disease Dressing changes as per protocol We will monitor site for hematoma or infection No further acute surgical intervention recommended at this time will follow with recommendations thank you for let me participate patient's care extubated improved downgraded discussed care plan with family consent obtained improved cath in place doing better d/c planning (2) Acute respiratory failure Assessment & Plan: DAILY ESTIMATED NEEDS: Needs based on Critical care, sepsis 75kg adj 22-28 kcals/kg 9708-5138 total kcals 1.2-2 g protein/kg 90-150 g total protein 25-30 mL/kg 2596-8062 total fluid mLs NUTRITION DIAGNOSIS: Swallowing difficulty r/t resp status as evidenced by septic shock now s/p intubation, w/ NGT, NPO at this time. ENTERAL NUTRITION RECOMMENDATIONS: Nepro @40ml/hr x24 hrs + Prosource BID to provide 960ml, 78g + 22 g pro, 698ml free H2O - As medically appropriate, rec non oral feeds via NGT - Start Nepro @20ml/hr for 6 hrs. Advance as tolerated 10ml/hr q4-6 hrs to goal. - Add Prosource BID to better meet est pro needs - Flush per MD. HOB over 30 degrees -------- ADDITIONAL RECOMMENDATIONS: 1) Tf recs as above, feed as medically able 2) Ad PROSOURCE VIA NGT BID to better meet est pro needs 3) Per SNF: 69inches tall, last wt of 210 lbs (2/3) -> rec weekly calibrated bed scale wts 4) BRANCH SERVICE REPRESENTATIVE eval upon extubation (3) Sepsis Assessment & Plan: Tunneled right permacath placed (4) History of left below knee amputation Assessment & Plan: Wound stable dressings intact elevate with pillow This patient is improving he spent some time with him at the bedside. We turned him to the right lateral decubitus and evaluated the wound. Fortunately what was considered to be a stage IV wound is actually not and a significant amount of the necrotic tissues actually buildup of hair and dried skin protectant. A fair amount of time was spent doing non-excisional debridement with gauze and moist saline until the area was fully cleaned. Identified was a stage II skin breakdown mainly epidermis that looked like necrotic eschar but fortunately was just epidermis and underlying healthy viable dermis with back bleeding. Wound was cleansed and total edges were identified and intact minimal tenderness on palpation good blanching tissue noted surrounding it. Thera honey placed followed by gauze dressing and foam dressing. Discussed care plan with patient. He is very compliant with turning and states he will remain off his mind will stay off his sacrum as much as possible will follow with recommendations. For now Thera honey impregnated gauze and foam dressing. Turn every 2 hours. Nutritional optimization. Ranjit Ralph Dec 17, 2019 22:08
[2019-12-18] VITALS: BP 129/65
[2019-12-18] MEDS: HydrALAZINE 25mg tab ORAL SCH ×2 (01:12→10:00)
[2019-12-18 04:00] VITALS: BP 125/62
[2019-12-18] MEDS: NovoLOG Insulin Flexpen SUBQ SCH ×2 (06:17→11:39)
[2019-12-18 08:00] VITALS: BP 141/82
--- NOTE | 2019-12-18 08:13 | NUR ---
HAND-OFF: Report given to YUKI Hoover.
[2019-12-18 08:36] LABS: BASOPHILS % (AUTO) 0.7 % (0.0-2.0); EOSINOPHILS % (AUTO) 6.4 % (0.0-3.0); HEMATOCRIT 25.5 % (42.0-52.0); HEMOGLOBIN 8.4 G/DL (14.2-18.0); LYMPHOCYTES % (AUTO) 21.4 % (20.0-45.0); MEAN CORPUSCULAR VOLUME 86 FL (80-99); MONOCYTES % (AUTO) 7.5 % (1.0-10.0); NEUTROPHILS % (AUTO) 63.9 % (45.0-75.0); PLATELET COUNT 433 K/UL (150-450); RED BLOOD COUNT 2.96 M/UL (4.70-6.10); RED CELL DISTRIBUTION WIDTH 13.4 % (11.6-14.8); WHITE BLOOD COUNT 8.7 K/UL (4.8-10.8)
[2019-12-18 08:48] LABS: ANION GAP 11 mmol/L (5-15); BLOOD UREA NITROGEN 57 mg/dL (7-18); CALCIUM 8.9 MG/DL (8.5-10.1); CARBON DIOXIDE 27 MMOL/L (21-32); CHLORIDE 100 MMOL/L (98-107); CREATININE 7.1 MG/DL (0.55-1.30); POTASSIUM 4.9 MMOL/L (3.5-5.1); SODIUM 138 MMOL/L (136-145)
[2019-12-18] MEDS: Heparin 5000 units/ml inj SUBQ SCH (08:52)
[2019-12-18] MEDS: Dakin's 0.125% Soln (Quarter Strength) 16oz TOPIC SCH (08:53)
[2019-12-18 08:58] LABS: ALBUMIN 2.3 G/DL (3.4-5.0); ALKALINE PHOSPHATASE 103 U/L (46-116); ASPARTATE AMINO TRANSFERASE 23 U/L (15-37); BILIRUBIN,DIRECT < 0.1 MG/DL (0.0-0.3); BILIRUBIN,TOTAL 0.4 MG/DL (0.2-1.0); PHOSPHORUS 4.9 MG/DL (2.5-4.9)
[2019-12-18] MEDS: Docusate 100mg cap ORAL SCH ×2 (09:00→14:02)
[2019-12-18] MEDS: Carvedilol 12.5mg tab NG SCH (09:00)
[2019-12-18 09:11] LABS: ALANINE AMINOTRANSFERASE 14 U/L (12-78)
[2019-12-18 12:00] VITALS: BP 101/57
[2019-12-18] MEDS ORDERED: Varibar Pudding 230ml MC PRN (12:45)
[2019-12-18] MEDS ORDERED: Varibar Honey 250ml MC PRN (12:45)
[2019-12-18] MEDS ORDERED: Varibar Nectar 240ml MC PRN (12:45)
--- NOTE | 2019-12-18 13:19 | NUR ---
NURSE NOTES: Patient asking for enema. Left message with Jeremiah at Dr. Miriam Roblero's office.
--- NOTE | 2019-12-18 13:31 | Surgery Progress Note ---
Surgery Progress Note Subjective Procedure Performed Right femoral temporary hemodialysis catheter removal Additional Comments no acute events comfortable receiving HD this AM labs reviewed Objective Last 24 Hour Vital Signs Date Time Temp Pulse Resp B/P (MAP) Pulse Ox O2 Delivery O2 Flow Rate FiO2 12/18/19 12:00 97.6 76 19 101/57 (72) 98 12/18/19 10:00 141/82 12/18/19 09:00 141/82 12/18/19 09:00 100 141/82 12/18/19 09:00 Nasal Cannula 2.0 Nasal Cannula 2.0 12/18/19 08:00 97.9 100 19 141/82 (101) 96 12/18/19 07:38 97 Nasal Cannula 2.0 28 12/18/19 04:00 98.1 75 18 125/62 (83) 100 12/18/19 01:12 129/65 12/18/19 00:00 98.3 78 18 129/65 (86) 100 12/17/19 21:00 Nasal Cannula 2.0 Nasal Cannula 2.0 12/17/19 20:51 76 125/72 12/17/19 20:00 98.1 74 18 114/69 (84) 100 12/17/19 19:51 99 Nasal Cannula 2.0 28 12/17/19 17:26 120/66 12/17/19 17:26 120/66 12/17/19 16:00 98.1 72 19 120/66 (84) 100 I&O Intake and Output 12/17/19 12/18/19 19:00 07:00 Intake Total 240 ml 420 ml Balance 240 ml 420 ml Intake Oral 240 ml 420 ml # Bowel Movements 2 Cardiovascular: RSR Respiratory: clear Abdomen: soft, non-tender, present bowel sounds Extremities: no edema, no tenderness, no cyanosis Laboratory Tests Test 12/18/19 06:46 White Blood Count 8.7 K/UL (4.8-10.8) Red Blood Count 2.96 M/UL (4.70-6.10) L Hemoglobin 8.4 G/DL (14.2-18.0) L Hematocrit 25.5 % (42.0-52.0) L Mean Corpuscular Volume 86 FL (80-99) Mean Corpuscular Hemoglobin 28.5 PG (27.0-31.0) Mean Corpuscular Hemoglobin Concent 33.0 G/DL (32.0-36.0) Red Cell Distribution Width 13.4 % (11.6-14.8) Platelet Count 433 K/UL (150-450) Mean Platelet Volume 4.5 FL (6.5-10.1) L Neutrophils (%) (Auto) 63.9 % (45.0-75.0) Lymphocytes (%) (Auto) 21.4 % (20.0-45.0) Monocytes (%) (Auto) 7.5 % (1.0-10.0) Eosinophils (%) (Auto) 6.4 % (0.0-3.0) H Basophils (%) (Auto) 0.7 % (0.0-2.0) Sodium Level 138 MMOL/L (136-145) Potassium Level 4.9 MMOL/L (3.5-5.1) Chloride Level 100 MMOL/L (98-107) Carbon Dioxide Level 27 MMOL/L (21-32) Anion Gap 11 mmol/L (5-15) Blood Urea Nitrogen 57 mg/dL (7-18) H Creatinine 7.1 MG/DL (0.55-1.30) H Estimat Glomerular Filtration Rate 9.7 mL/min (>60) Glucose Level 93 MG/DL (74-106) Calcium Level 8.9 MG/DL (8.5-10.1) Phosphorus Level 4.9 MG/DL (2.5-4.9) Magnesium Level 2.0 MG/DL (1.8-2.4) Total Bilirubin 0.4 MG/DL (0.2-1.0) Direct Bilirubin < 0.1 MG/DL (0.0-0.3) Aspartate Amino Transf (AST/SGOT) 23 U/L (15-37) Alanine Aminotransferase (ALT/SGPT) 14 U/L (12-78) Alkaline Phosphatase 103 U/L (46-116) Total Protein 7.2 G/DL (6.4-8.2) Albumin 2.3 G/DL (3.4-5.0) L Plan Problems: (1) Septic shock Assessment & Plan: Patient in septic shock prior central line and pressors intubated on vent support in the intensive care unit tachycardic. Renal insufficiency requiring hemodialysis. Temporary hemodialysis catheter indicated and recommended Please see procedure note Dialysis as per nephrology IV antibiotics post per infectious disease Dressing changes as per protocol We will monitor site for hematoma or infection No further acute surgical intervention recommended at this time will follow with recommendations thank you for let me participate patient's care extubated improved downgraded discussed care plan with family consent obtained improved cath in place doing better d/c planning (2) Acute respiratory failure Assessment & Plan: DAILY ESTIMATED NEEDS: Needs based on Critical care, sepsis 75kg adj 22-28 kcals/kg 9922-5199 total kcals 1.2-2 g protein/kg 90-150 g total protein 25-30 mL/kg 1096-7107 total fluid mLs NUTRITION DIAGNOSIS: Swallowing difficulty r/t resp status as evidenced by septic shock now s/p intubation, w/ NGT, NPO at this time. ENTERAL NUTRITION RECOMMENDATIONS: Nepro @40ml/hr x24 hrs + Prosource BID to provide 960ml, 78g + 22 g pro, 698ml free H2O - As medically appropriate, rec non oral feeds via NGT - Start Nepro @20ml/hr for 6 hrs. Advance as tolerated 10ml/hr q4-6 hrs to goal. - Add Prosource BID to better meet est pro needs - Flush per . HOB over 30 degrees -------- ADDITIONAL RECOMMENDATIONS: 1) Tf recs as above, feed as medically able 2) Ad PROSOURCE VIA NGT BID to better meet est pro needs 3) Per SNF: 69inches tall, last wt of 210 lbs (2/3) -> rec weekly calibrated bed scale wts 4) TELEPHONE TRIAGE NURSE eval upon extubation (3) Sepsis Assessment & Plan: Tunneled right permacath placed (4) History of left below knee amputation Assessment & Plan: Wound stable dressings intact elevate with pillow This patient is improving he spent some time with him at the bedside. We turned him to the right lateral decubitus and evaluated the wound. Fortunately what was considered to be a stage IV wound is actually not and a significant amount of the necrotic tissues actually buildup of hair and dried skin protectant. A fair amount of time was spent doing non-excisional debridement with gauze and moist saline until the area was fully cleaned. Identified was a stage II skin breakdown mainly epidermis that looked like necrotic eschar but fortunately was just epidermis and underlying healthy viable dermis with back bleeding. Wound was cleansed and total edges were identified and intact minimal tenderness on palpation good blanching tissue noted surrounding it. Thera honey placed followed by gauze dressing and foam dressing. Discussed care plan with patient. He is very compliant with turning and states he will remain off his mind will stay off his sacrum as much as possible will follow with recommendations. For now Thera honey impregnated gauze and foam dressing. Turn every 2 hours. Nutritional optimization. Additional Comments d/c planning Ranjit Ralph Dec 18, 2019 13:31
[2019-12-18] MEDS ORDERED: Lactulose 20gm/30ml UDC ORAL SCH (13:45)
--- NOTE | 2019-12-18 14:30 | Nephrology Progress Note ---
Assessment/Plan Problem List: (1) ARF (acute renal failure) (2) Acute respiratory failure (3) Septic shock (4) Anemia (5) History of hypertension (6) Diabetes mellitus (7) Acute on chronic systolic heart failure Assessment: ej Fx 40 Assessment Acute renal failure- ? Underlying CKD Respiratory failure Anemia Sepsis / Shock ? Pneumonia DM HTN by history Gout left BKA Cardiomyopathy - Ej Fx 40% Plan Patient was dialyzed early this morning will be discharged to [facility] and follow-up with outpatient dialysis on Thursday at the [facility] renal care unit Today the hemoglobin has improved Continue to monitor hemoglobin and hematocrit. Transfusion as needed. Has permacath-last dialysis 12/15 phos binders Adjust blood pressure medications. Coreg hydralazine previously DC Hydrocortisone Antibiotics urine studies avoid nephrotoxics monitor renal parameters Anemia hairston per orders Subjective ROS Limited/Unobtainable: No Objective Objective Last 24 Hour Vital Signs Date Time Temp Pulse Resp B/P (MAP) Pulse Ox O2 Delivery O2 Flow Rate FiO2 12/18/19 13:00 101/57 12/18/19 12:00 97.6 76 19 101/57 (72) 98 12/18/19 10:00 141/82 12/18/19 09:00 141/82 12/18/19 09:00 100 141/82 12/18/19 09:00 Nasal Cannula 2.0 Nasal Cannula 2.0 12/18/19 08:00 97.9 100 19 141/82 (101) 96 12/18/19 07:38 97 Nasal Cannula 2.0 28 12/18/19 04:00 98.1 75 18 125/62 (83) 100 12/18/19 01:12 129/65 12/18/19 00:00 98.3 78 18 129/65 (86) 100 12/17/19 21:00 Nasal Cannula 2.0 Nasal Cannula 2.0 12/17/19 20:51 76 125/72 12/17/19 20:00 98.1 74 18 114/69 (84) 100 12/17/19 19:51 99 Nasal Cannula 2.0 28 12/17/19 17:26 120/66 12/17/19 17:26 120/66 12/17/19 16:00 98.1 72 19 120/66 (84) 100 Intake and Output 12/17/19 12/18/19 19:00 07:00 Intake Total 240 ml 420 ml Balance 240 ml 420 ml Intake Oral 240 ml 420 ml # Bowel Movements 2 Current Medications Medications (Trade) Dose Ordered Sig/Valeriano Route PRN Reason Start Time Stop Time Status Last Admin Dose Admin Acetaminophen (Tylenol) 650 mg Q4H PRN NG Mild Pain/Temp > 100.5 12/09/19 20:33 01/02/20 20:32 12/15/19 03:56 Barium Sulfate (Varibar Honey) 250 ml NOW PRN MC RAD 12/18/19 12:45 12/21/19 12:43 Barium Sulfate (Varibar [place]) 240 ml NOW PRN RAD 12/18/19 12:45 12/21/19 12:43 Barium Sulfate (Varibar Pudding) 230 ml NOW PRN RAD 12/18/19 12:45 12/21/19 12:43 Bisacodyl (Dulcolax) 10 mg DAILYPRN PRN RECTAL Constipation 12/18/19 13:45 01/17/20 13:44 12/18/19 14:02 Carvedilol (Coreg) 12.5 mg EVERY 12 HOURS NG 12/09/19 21:00 01/02/20 21:59 12/17/19 20:51 Chlorhexidine Gluconate (Katia-Hex 2%) 1 applic DAILY@1999 TOPIC 12/10/19 20:00 12/25/19 19:59 12/17/19 20:50 Dextrose (Dextrose 50%) 25 ml Q30M PRN IV Hypoglycemia 12/09/19 20:33 12/24/19 20:32 Dextrose (Dextrose 50%) 50 ml Q30M PRN IV Hypoglycemia 12/09/19 20:33 12/24/19 20:32 Docusate Sodium (Colace) 100 mg THREE TIMES A DAY ORAL 12/10/19 09:00 01/08/20 12:59 12/18/19 14:02 Epoetin Ricky (Epoetin Ricky(ESRD on dialysis)) 10,000 unit THU-WED-THU SUBQ 12/12/19 21:00 01/11/20 20:59 12/16/19 20:54 Heparin Sodium (Porcine) (Heparin 5000 units/ml) 5,000 units EVERY 12 HOURS SUBQ 12/09/19 21:00 01/02/20 21:59 12/18/19 08:52 Hydralazine HCl (Apresoline) 25 mg Q4H PRN ORAL bp over 160 syst 12/09/19 20:37 01/08/20 20:36 Hydralazine HCl (Apresoline) 25 mg Q8H ORAL 12/12/19 10:00 01/11/20 09:59 12/18/19 01:12 Insulin Aspart (NovoLOG) BEFORE MEALS AND HS SUBQ 12/09/19 21:00 01/02/20 21:13 12/18/19 11:39 Iron Sucrose 100 mg/Sodium Chloride 55 ml @ 200 mls/hr BEDTIME IV 12/10/19 21:00 12/19/19 21:17 12/17/19 20:50 Isosorbide Dinitrate (Isordil) 20 mg TID GT 12/10/19 09:00 01/01/20 08:59 12/17/19 17:26 Lactulose (Cephulac) 30 gm ONCE ORAL 12/18/19 13:45 12/18/19 16:00 Nitroglycerin (Ntg) 0.4 mg Q5M PRN SL Prn Chest Pain 12/09/19 20:30 01/02/20 21:16 Ondansetron HCl (Zofran) 4 mg Q6H PRN IVP Nausea & Vomiting 12/09/19 20:34 01/02/20 20:33 Pantoprazole (Protonix) 40 mg EVERY 12 HOURS ORAL 12/09/19 21:00 01/08/20 20:59 12/18/19 08:51 Polyethylene Glycol (Miralax) 17 gm DAILYPRN PRN NG Constipation 12/09/19 20:34 01/02/20 20:33 12/18/19 11:14 Promethazine HCl/ Codeine (Phenergan with Codeine) 5 ml Q4H PRN NG For Cough 12/09/19 20:34 01/02/20 20:33 12/15/19 09:02 Sevelamer Carbonate (Renvela) 2,400 mg THREE TIMES A DAY ORAL 12/10/19 09:00 01/07/20 12:59 12/18/19 14:02 Sodium Hypochlorite (Dakin's Quarter Strength) 1 applic DAILY TOPIC 12/10/19 09:00 01/07/20 08:59 12/18/19 08:53 Laboratory Tests 12/18/19 06:46: White Blood Count 8.7, Red Blood Count 2.96L, Hemoglobin 8.4L, Hematocrit 25.5L , Mean Corpuscular Volume 86, Mean Corpuscular Hemoglobin 28.5, Mean Corpuscular Hemoglobin Concent 33.0, Red Cell Distribution Width 13.4, Platelet Count 433, Mean Platelet Volume 4.5L, Neutrophils (%) (Auto) 63.9, Lymphocytes ( %) (Auto) 21.4, Monocytes (%) (Auto) 7.5, Eosinophils (%) (Auto) 6.4H, Basophils (%) (Auto) 0.7, Sodium Level 138, Potassium Level 4.9, Chloride Level 100, Carbon Dioxide Level 27, Anion Gap 11, Blood Urea Nitrogen 57H, Creatinine 7.1H, Estimat Glomerular Filtration Rate 9.7, Glucose Level 93, Calcium Level 8.9, Phosphorus Level 4.9, Magnesium Level 2.0, Total Bilirubin 0.4, Direct Bilirubin < 0.1, Aspartate Amino Transf (AST/SGOT) 23, Alanine Aminotransferase (ALT/SGPT) 14, Alkaline Phosphatase 103, Total Protein 7.2, Albumin 2.3L Height (Feet): 5 Height (Inches): 8.00 Weight (Pounds): 224 Cardiovascular: normal rate Respiratory/Chest: decreased breath sounds Abdomen: soft Objective no change Tej Sidhu MD Dec 18, 2019 14:30
--- NOTE | 2019-12-18 15:02 | Discharge Summary ---
Discharge Summary Hospital Course Date of Admission Nov 24, 2019 at 02:46 Date of Discharge 12/18/19 Admitting Diagnosis sepsis, HCAP. HPI Antony Arellano is a 59 year old male who was admitted on Nov 24, 2019 at 02:46 for Sepsis,Health Care Associated Pneumonia Hospital Course 59 Y/O MALE admitted from SNF with shortness of breath and diagnosed with pneumonia and septic shock. He was transferred to the ICU and intubated. Antibiotics were started and gradual weaning from the ventilator was done with pulmonary - ID merchandising consultant and Renal support. Septic Shock- SP Pneumonia -12/01 CXR: probably unchanged bilateral diffuse interstitial and airspace disease. -11/30 sp cx:Interim marked worsening of bilateral pulmonary parenchymal disease, over one day -11/29 sp cx ESBL E.coli (S zosyn, Imipenem, bactrim) -11/24 u/a neg; ucx neg Bcx NTD influenza sc neg CXR: Bilateral dense consolidation, likely pneumonia. Pulmonary edema also possible. Correlate with clinical findings sp cx ordered,not done legionella ag urine neg S. hominis bacteremia- RIJ infection vs contamination - SP Perm Cath insertion 12/08 - HD Cath removed on 12/06 - RIJ removed on 12/02 -11/27 Bcx 1/4 S. hominis; 11/29 Bcx 1/2 S. hominis (RIJ), NTD x2 (peripheral) ARDS Acute respiratory failure s/p intubation 11/24, sp extubation 11/29, now on bipap GANGA on CKD; now on HD 11/27 and tolerating well. Last HD 12/16/19. Dr. Tej Sidhu arranged outpatient HD at [facility] [phone] Plan HD tomorrow AM then dc to SNF Chronic problems: Dm2 Gout s/p L BKA allergic rhinitis CAD s/p stent prosthetic AVR hx of esophagitis PVD chronic sCHF HLD HTN SNF resident Plan: monitor pt off of AB Rx, continue HD and follow up SNF care at [facility] once stable. Goal DC Thursday AFTER HD. Discussed with Dr. Sidhu. - 12/13 SP IV Vanco # 10/10 - Sp Meropenem # 10/10 for ESBL E.coli PNA -12/01 SP IV Vancomycin #8, Tamiflu #7 -11/30 SP LEvaquin #7, Cefepime #7 Discharge Medications New Medications: [Acetaminophen] () 650 MG/20.3 ML SOLN 650 MG NG Q4H PRN for 30 Days, #60 Carvedilol (Coreg) 12.5 Mg Tablet 12.5 MG NG EVERY 12 HOURS for 60 Days, TAB HOLD IF HR LESS THAN 60 OR SBP LESS 110 Chlorhexidine Gluconate* (Hibiclens*) 118 Ml Liquid 1 APPLIC TOPIC DAILY@1999 for 30 Days, #120 ML 9 Refills clean body from neck to knees daily Docusate Sodium* (Colace*) 100 Mg Capsule 100 MG ORAL THREE TIMES A DAY for 30 Days, #90 CAP Heparin Sod (Porcine) (Heparin Sodium*) 5 000/1 Ml Vial 5000 UNITS SUBQ EVERY 12 HOURS for 30 Days, #60 VIAL Hydralazine Hcl* (Hydralazine Hcl*) 25 Mg Tablet 25 MG ORAL Q4H PRN for 60 Days, #90 TAB Prn IF SBP GREATER THAN 160 Hydralazine Hcl* (Hydralazine Hcl*) 25 Mg Tablet 25 MG ORAL Q8H for 60 Days, #120 TAB hold if sbp less than 110 Isosorbide Dinitrate* (Isordil*) 10 Mg Tablet 20 MG GT TID for 30 Days, #90 TAB hold if sbp less than 110 Nitroglycerin 0.4MG table* (Nitroglycerin*) 0.4 Mg Tab.subl 0.4 MG SL Q5M PRN for 30 Days, #60 TAB prn chest pain Pantoprazole* (Pantoprazole*) 40 Mg Tablet.dr 40 MG ORAL EVERY 12 HOURS for 30 Days, #60 TAB Polyethylene Glycol 3350 (Miralax) 119 Gm Powder 17 GM NG DAILYPRN PRN for 30 Days, #90 GM Sevelamer Carbonate (Renvela) 800 Mg Tablet 2400 MG ORAL THREE TIMES A DAY for 30 Days, #90 TAB Sodium Hypochlorite (Dakin's) 473 Ml Solution 1 APPLIC TOPIC DAILY for 30 Days, #30 EA Clean sacral wound Continued Medications: Atorvastatin Calcium* (Atorvastatin Calcium*) 40 Mg Tablet 80 MG ORAL BEDTIME for Hyperlipidemia, TAB (This prescription has been renewed) Discharge Condition Upon Discharge: improving Discharge Vital Signs Last Vital Signs Date Time Temp Pulse Resp B/P (MAP) Pulse Ox O2 Delivery O2 Flow Rate FiO2 12/18/19 13:00 101/57 12/18/19 12:00 97.6 76 19 98 12/18/19 09:00 Nasal Cannula 2.0 Nasal Cannula 2.0 12/18/19 07:38 28 Discharge Disposition Patient was discharged to [facility] Discharge Diagnoses: (1) Acute respiratory failure (2) ARDS (adult respiratory distress syndrome) (3) Septic shock (4) ESRD (end stage renal disease) (5) Anemia (6) Sepsis (7) ARF (acute renal failure) (8) HCAP (healthcare-associated pneumonia) (9) History of hypertension (10) Diabetes mellitus (11) prostetic heart valve (12) History of left below knee amputation (13) Chronic systolic heart failure Miriam Roblero MD Dec 18, 2019 15:02
[2019-12-18 16:00] VITALS: BP 129/67
--- NOTE | 2019-12-18 17:50 | NUR ---
NURSE NOTES: Patient discharged in stable condition, belongings given to ambulance personnel.
--- NOTE | 2019-12-18 18:25 | NUR ---
NURSE NOTES: [facility]
--- NOTE | 2019-12-22 11:31 | NUR ---
INSURANCE REVIEW FAXED TO [facility] DEPT [phone] AUTH# [id number] NCM: JARRED GONSALVES FAX ALL CLINICALS TO: [phone]
== END 2019-12-18 17:48 | DRG 720 ==
LOC: EDBD 00:01 → EDUNIT# 00:01 → EMR 00:29 → ICU 02:46 → OBSVTOIN 02:46 → EDBEDREQ 09:15 → EDBEDREQSVC 09:15 → EDBEDREQ 12:30 → 2W 12-03 21:10 → 4E 12-09 20:00
PROC: 5A1955Z Respiratory Ventilation, Greater than 96 Consecutive Hours (ICD-10-PCS; principal; 2019-11-24)
PROC: 0BH17EZ Insertion of Endotracheal Airway into Trachea, Via Natural or Artificial Opening (ICD-10-PCS; principal; 2019-11-24)
PROC: 05HM33Z Insertion of Infusion Device into Right Internal Jugular Vein, Percutaneous Approach (ICD-10-PCS; 2019-11-25)
PROC: 5A1D70Z Performance of Urinary Filtration, Intermittent, Less than 6 Hours Per Day (ICD-10-PCS; 2019-11-27)
PROC: 06HM33Z Insertion of Infusion Device into Right Femoral Vein, Percutaneous Approach (ICD-10-PCS; 2019-11-27)
PROC: 06PYX3Z Removal of Infusion Device from Lower Vein, External Approach (ICD-10-PCS; 2019-12-06)
PROC: 0JH63XZ Insertion of Tunneled Vascular Access Device into Chest Subcutaneous Tissue and Fascia, Percutaneous Approach (ICD-10-PCS; 2019-12-08)
PROC: 05HM33Z Insertion of Infusion Device into Right Internal Jugular Vein, Percutaneous Approach (ICD-10-PCS; 2019-12-08)
DX: A41.9 Sepsis, unspecified organism (principal); N17.9 Acute kidney failure, unspecified; I24.9 Acute ischemic heart disease, unspecified; E11.22 Type 2 diabetes mellitus with diabetic chronic kidney disease; R65.21 Severe sepsis with septic shock; I50.23 Acute on chronic systolic (congestive) heart failure; I13.2 Hypertensive heart and chronic kidney disease with heart failure and with stage 5 chronic kidney disease, or end stage renal disease; N18.6 End stage renal disease; Z99.2 Dependence on renal dialysis; J96.01 Acute respiratory failure with hypoxia; J15.5 Pneumonia due to Escherichia coli; Z89.512 Acquired absence of left leg below knee; I73.9 Peripheral vascular disease, unspecified; E78.00 Pure hypercholesterolemia, unspecified; D64.9 Anemia, unspecified; J80 Acute respiratory distress syndrome; I25.10 Atherosclerotic heart disease of native coronary artery without angina pectoris; Z95.5 Presence of coronary angioplasty implant and graft; Y95 Nosocomial condition
CPT/HCPCS: 36415; 36600; 71045; 74018; 74230; 76000; 76770; 80048; 80053; 80061; 80069; 80076; 80202; 81001; 81003; 82043; 82164; 82248; 82270; 82378; 82550; 82553; 82607; 82728; 82746; 82803; 82962; 83036; 83540; 83550; 83605; 83615; 83735; 83880; 83935; 84100; 84300; 84484; 84550; 85007; 85025; 85044; 85060; 85610; 85651; 85730; 86140; 86703; 86706; 86707; 86710; 86803; 86850; 86900; 86901; 86920; 87040; 87070; 87081; 87086; 87181; 87205; 89050; 93005; 93306; 93970; 94003; 94640; 94660; 94664; 96361; 96365; 96368; 99291; J1815; J7030; J7620; J8499